=== PATIENT | female | born 1955 | race Caucasian/White ===

== ENCOUNTER → 2020-08-05 08:45 | Outpatient (BNVA) | payer OTHER, SELFPAY | PROVIDERS: PCP Internal Medicine; Visit Provider Internal Medicine | DX: Z76.89 Persons encountering health services in other specified circumstances (principal) ==

== ENCOUNTER 2020-09-02 10:13 | Outpatient (REF) | payer MEDICARE, SELFPAY ==
[2020-09-02 11:26] LABS: Influenza A PCR NEGATIVE (Negative); Influenza B PCR NEGATIVE (Negative); Resp Syncy Virus RNA Qual PCR NEGATIVE (Negative); SARS COV2 PCR INHOUSE NEGATIVE (Negative)
== END 2020-09-02 10:14 | disposition home or self-care (01) ==
LOC: HO.LNP 10:13
PROVIDERS: Visit Provider Internal Medicine
DX: R51.9 Headache, unspecified (principal); R09.89 Other specified symptoms and signs involving the circulatory and respiratory systems; J02.9 Acute pharyngitis, unspecified; Z20.822 Contact with and (suspected) exposure to COVID-19
CPT/HCPCS: 0241U

== ENCOUNTER → 2020-09-09 08:29 | Outpatient (BNVA) | payer OTHER, SELFPAY | PROVIDERS: PCP Internal Medicine; Visit Provider Urology | DX: N39.41 Urge incontinence (principal) | CPT/HCPCS: 51798 ==

== ENCOUNTER 2020-09-19 06:01 | Outpatient (REF) | payer OTHER, SELFPAY ==
[2020-09-19 07:32] LABS: Cholesterol 203 mg/dL; HDL Cholesterol 74 mg/dL; LDL Cholesterol Calculated 107 mg/dl; Triglycerides 113 mg/dL
== END 2020-09-19 06:02 | disposition home or self-care (01) ==
LOC: HO.LAB 06:01
PROVIDERS: PCP Internal Medicine; Visit Provider Internal Medicine
DX: E78.00 Pure hypercholesterolemia, unspecified (principal)
CPT/HCPCS: 36415; 80061

== ENCOUNTER → 2021-02-10 08:03 | Outpatient (BNVA) | payer OTHER, SELFPAY | PROVIDERS: PCP Internal Medicine; Referring Provider Internal Medicine; Visit Provider Internal Medicine | DX: R07.2 Precordial pain (principal); R42 Dizziness and giddiness; I10 Essential (primary) hypertension; I77.1 Stricture of artery | CPT/HCPCS: 93005 ==

== ENCOUNTER 2021-03-03 10:23 | Outpatient (REF) | payer OTHER, SELFPAY ==
--- NOTE | ~2021-03-03 | US_ITS ---
EXAMINATION: US EXTRACRANIAL CAROTID DUPLEX, BILATERAL CLINICAL INFORMATION: Carotid artery stenosis COMPARISON: 04/07/2018 TECHNIQUE: Real-time ultrasound and Doppler techniques (integrating B-mode 2-D vascular images, Doppler spectral analysis and color-flow Doppler imaging) were utilized to interrogate the extracranial carotid arteries, the vertebral arteries and proximal subclavian arteries bilaterally. The degree of stenosis is determined by criteria similar to NASCET. FINDINGS: Right Side: 1. There is minimal heterogeneous atherosclerotic plaque seen in the bifurcation/proximal ICA region. 2. The common carotid artery PSV proximally is 132 cm/s and distally 76 cm/s. 3. The proximal internal carotid artery velocities are 66 cm/s systolic and 19 cm/s diastolic. 4. The proximal external carotid artery PSV is 93 cm/s. 5. The vertebral artery shows antegrade flow. 6. The subclavian artery waveforms are normal. Left Side: 1. There is mild heterogeneous atherosclerotic plaque seen in the bifurcation/proximal ICA region. 2. The common carotid artery PSV proximally is 153 cm/s and distally 76 cm/s. 3. The proximal internal carotid artery velocities are 68 cm/s systolic and 13 cm/s diastolic. 4. The proximal external carotid artery PSV is 81 cm/s. 5. The vertebral artery shows antegrade flow. 6. The subclavian artery peak systolic velocity is elevated. US/US carotid duplex BI IMPRESSION: 1. RIGHT: Minimal, non-hemodynamically significant stenosis of the proximal right internal carotid artery corresponding to a 0-49% stenosis by velocity criteria. 2. LEFT: Minimal, non-hemodynamically significant stenosis of the proximal left internal carotid artery corresponding to a 0-49% stenosis by velocity criteria. 3. There is no change in the category severity of disease when compared to the previous study dated 04/07/2018.
== END 2021-03-03 10:24 | disposition home or self-care (01) ==
LOC: HO.US 10:23
PROVIDERS: PCP Internal Medicine; Visit Provider Internal Medicine
DX: I65.23 Occlusion and stenosis of bilateral carotid arteries (principal); I77.1 Stricture of artery
CPT/HCPCS: 93880

== ENCOUNTER → 2021-08-27 08:07 | Outpatient (BNVA) | payer OTHER, SELFPAY | PROVIDERS: PCP Internal Medicine; Referring Provider Internal Medicine; Visit Provider Internal Medicine | DX: I65.23 Occlusion and stenosis of bilateral carotid arteries (principal); I77.1 Stricture of artery ==

== ENCOUNTER → 2021-09-18 08:14 | Outpatient (BNVA) | payer OTHER, SELFPAY | PROVIDERS: PCP Internal Medicine | DX: N39.41 Urge incontinence (principal) | CPT/HCPCS: 51798 ==

== ENCOUNTER → 2021-11-24 14:13 | Outpatient (BNVA) | payer OTHER, SELFPAY | PROVIDERS: PCP Internal Medicine | DX: Z13.89 Encounter for screening for other disorder (principal) ==

== ENCOUNTER 2022-01-01 08:13 | Outpatient (REF) | payer OTHER, SELFPAY ==
[2022-01-01 17:25] LABS: Urine Cytology See Pathology rpt
== END 2022-01-01 08:14 | disposition home or self-care (01) ==
LOC: HO.LAB 08:13
PROVIDERS: PCP Internal Medicine
DX: N39.0 Urinary tract infection, site not specified (principal); N39.41 Urge incontinence; R31.9 Hematuria, unspecified
CPT/HCPCS: 87086; 88112

== ENCOUNTER 2022-02-05 08:14 | Outpatient (REF) | payer OTHER, SELFPAY ==
--- NOTE | ~2022-02-05 | US_ITS ---
EXAMINATION: US RETROPERITONEAL LIMITED (RENAL ONLY) CLINICAL INFORMATION: Unspecified hematuria. COMPARISON: None TECHNIQUE: Real-time imaging of the kidneys. FINDINGS: RIGHT KIDNEY: 9.9 x 4.6 x 5.3 cm (SAG x AP x TRV). The kidney is normal in size, contour, and echogenicity. Renal cortical thickness is normal. No calculi or focal parenchymal lesions. No hydronephrosis. LEFT KIDNEY: 9.0 x 5.3 x 5.0 cm (SAG x AP x TRV). The kidney is normal in size, contour, and echogenicity. Renal cortical thickness is normal. There is question of a 3 mm stone in the mid to lower pole. There is a 9 x 6 x 8 mm cyst with peripheral dependent calcification probably representing a milk of calcium cyst. No hydronephrosis. US/US renal BI IMPRESSION: Normal right kidney. Question small left renal stone. Small left renal cyst.
== END 2022-02-05 08:15 | disposition home or self-care (01) ==
LOC: HO.US 08:14
DX: R31.9 Hematuria, unspecified (principal)
CPT/HCPCS: 76775

== ENCOUNTER 2022-02-19 10:44 | Outpatient (REF) | payer OTHER, SELFPAY ==
[2022-02-19 13:21] LABS: Appearance Urine HAZY; Color Urine YELLOW; Glucose Urine UA NEG (NEG); Leukocyte Esterase Urine 2+ (NEG); Nitrite Urine NEG (NEG); Urine Blood NEG (NEG); Urine Ketones NEG (NEG); Urine Protein NEG (NEG-TRACE)
[2022-02-19 13:30] LABS: Squamous Epithelial Cell Urine 2+ /LPF
[2022-02-19 13:31] LABS: Bacteria Urine TRACE /LPF; RBC Urine 0 /HPF (0)
== END 2022-02-19 10:45 | disposition home or self-care (01) ==
LOC: HO.LAB 10:44
PROVIDERS: PCP Internal Medicine
DX: N39.0 Urinary tract infection, site not specified (principal)
CPT/HCPCS: 81001; 87086

== ENCOUNTER → 2022-03-31 14:00 | Outpatient (BNVA) | payer OTHER, SELFPAY | PROVIDERS: PCP Internal Medicine; Referring Provider Internal Medicine; Visit Provider Internal Medicine | DX: I77.1 Stricture of artery (principal); I10 Essential (primary) hypertension | CPT/HCPCS: 93005 ==

== ENCOUNTER 2022-06-03 11:10 | Outpatient (REF) | payer OTHER, SELFPAY ==
--- NOTE | ~2022-06-03 | XR_ITS ---
EXAMINATION: XR HIP, RIGHT CLINICAL INFORMATION: Right hip pain. COMPARISON: None TECHNIQUE: Two views of the right hip. FINDINGS: There is minimal loss of right hip joint space without bony erosive changes. No visible acute fracture, dislocation or subluxation seen. No bony erosive changes. XR/XR hip RT min 2V IMPRESSION: Mild degenerative changes right hip joint. No visible acute fracture or dislocation.
== END 2022-06-03 11:11 | disposition home or self-care (01) ==
LOC: HO.XRAY 11:10
PROVIDERS: PCP Internal Medicine; Visit Provider Internal Medicine
DX: M25.551 Pain in right hip (principal)
CPT/HCPCS: 73502

== ENCOUNTER 2023-02-12 11:55 | Outpatient (REF) | payer OTHER, SELFPAY ==
[2023-02-12 13:16] LABS: MANUAL DIFF FLAG NO
[2023-02-12 13:20] LABS: Basophils Absolute Auto 0.1 X10*3/uL (0.0-0.2); Basophils Percent Auto 0.8 % (0-2); Eosinophils Absolute Auto 0.1 X10*3/uL (0.0-0.4); Eosinophils Percent Auto 1.5 % (0-4); Hematocrit 40.9 % (37.0-47.0); Imm Gran Abs Auto 0.06 X10*3/uL (0.00-0.03); Imm Gran Pct Auto 0.9 % (0.0-0.4); Lymphocytes Absolute Auto 1.6 X10*3/uL (1.2-4.9); Lymphocytes Percent Auto 24.3 % (20-40); Mean Corpuscular HGB Conc 34.2 g/dl (31.0-35.0); Mean Corpuscular Volume 93.6 fL (80.0-98.0); Mean Platelet Volume 9.5 fL (9.4-12.3); Monocytes Absolute Auto 0.9 X10*3/uL (0.1-1.2); Monocytes Percent Auto 13.7 % (2-11); Neutrophils Absolute Auto 3.8 x10*3/uL (2.0-8.3); Neutrophils Percent Auto 58.8 % (45-73); Platelet Count 297 X10*3/uL (160-400); Red Blood Count 4.37 X10*6/uL (4.20-5.50); Red Cell Distribution Width 12.4 % (11.0-16.0); White Blood Count 6.5 X10*3/uL (4.8-10.8)
[2023-02-12 13:25] LABS: Appearance Urine Clear; Color Urine Yellow; Glucose Urine UA Negative (Negative); Leukocyte Esterase Urine Moderate (2+) (Negative); Nitrite Urine Negative (Negative); UMIC TRIGGER UACC YES; Urine Blood Negative (Negative); Urine Ketones Negative (Negative); Urine Protein Negative (Neg-Trace)
[2023-02-12 13:27] LABS: Bacteria Urine None Seen (None Seen); Hyaline Casts Urine 0-2 /LPF (0-2); RBC Urine 0-2 /HPF (0-2); UACC Culture Trigger YES; WBC Urine 21-50 /HPF (0-5)
[2023-02-12 13:58] LABS: Erythrocyte Sedimentation Rate 27 MM/HR (0-20)
[2023-02-12 14:02] LABS: Alanine Aminotransferase 24 U/L (0-31); Albumin Level 3.9 g/dL (3.5-5.0); Alkaline Phosphatase 77 U/L (39-117); Anion Gap 14 (12-20); Aspartate Amino Transferase 19 U/L (5-31); Bilirubin Total 0.3 mg/dL (0.0-1.0); Blood Urea Nitrogen 9 mg/dL (9-16); C Reactive Protein 5.67 mg/dL (< or = 0.50); Calcium 9.8 mg/dL (8.4-10.2); Carbon Dioxide 28 mmol/L (22-29); Chloride 98 mmol/L (96-108); Estimated Glomerular Filt Rate > 60; Glucose Random 96 mg/dL (60-115); Potassium 3.5 mmol/L (3.3-5.1); Sodium 136 mmol/L (135-145)
== END 2023-02-12 11:56 | disposition home or self-care (01) ==
LOC: HO.10HDL 11:55
PROVIDERS: Visit Provider Internal Medicine
DX: I10 Essential (primary) hypertension (principal); K62.5 Hemorrhage of anus and rectum; R82.90 Unspecified abnormal findings in urine
CPT/HCPCS: 36415; 80053; 81001; 85025; 85652; 86140; 87086

== ENCOUNTER 2023-02-15 11:46 | Outpatient (REF) | payer OTHER, SELFPAY | END 2023-02-15 11:47 | disposition home or self-care (01) | LOC: HO.LNP 11:46 | PROVIDERS: Visit Provider Internal Medicine | DX: Z13.89 Encounter for screening for other disorder (principal) | CPT/HCPCS: 87507 ==

== ENCOUNTER 2023-02-22 10:38 | Outpatient (REF) | payer OTHER, SELFPAY ==
[2023-02-22 16:12] LABS: Campylobacter Not Detected (Not Detect.); Plesiomonas shigelloides Not Detected (Not Detect.); Salmonella Not Detected (Not Detect.); Vibrio Not Detected (Not Detect.)
[2023-02-22 16:13] LABS: Adenovirus F 40/41 Not Detected (Not Detect.); Astrovirus Not Detected (Not Detect.); Cryptosporidium Not Detected (Not Detect.); Cyclospora cayetanensis Not Detected (Not Detect.); E. coli EAEC Not Detected (Not Detect.); E. coli EPEC Not Detected (Not Detect.); E. coli ETEC Not Detected (Not Detect.); E. coli STEC Not Detected (Not Detect.); Entamoeba histolytica Not Detected (Not Detect.); Giardia lamblia Not Detected (Not Detect.); Norovirus GI/GII Not Detected (Not Detect.); Rotavirus A Not Detected (Not Detect.); Sapovirus Not Detected (Not Detect.); Shigella sp./EIEC Not Detected (Not Detect.); Vibrio Cholerae Not Detected (Not Detect.); Yersinia enterocolitica Not Detected (Not Detect.)
== END 2023-02-22 10:39 | disposition home or self-care (01) ==
LOC: HO.LNP 10:38
PROVIDERS: Visit Provider Internal Medicine
DX: R10.9 Unspecified abdominal pain (principal)
CPT/HCPCS: 87507

== ENCOUNTER 2023-04-09 07:47 | Day surgery (SDC) | payer OTHER, SELFPAY ==
--- NOTE | 2023-04-08 10:09 | P.CONAN_ITS ---
Documented by User: Rasheeda Lucas NP 04/08/23 10:11 HPI - Anesthesia Eval Consult details Narrative: 67yo F for Upper Endoscopy with Balloon Dilitation PMFSH Active Problems Active Problems: All Active Problems (Updated 01/01/22 @ 13:58 by CAROL Pimentel) Hematuria (Acute) UTI (urinary tract infection) (Acute) Urgency incontinence (Acute) Dizziness (Acute) Subclavian artery stenosis (Acute) Essential hypertension (Acute) Past Medical History Medical History (Updated 04/09/23 @ 07:59 by Sherron Gutierrez RN) Asthma Essential hypertension GERD (gastroesophageal reflux disease) H/O urinary retention Hematuria History of urinary retention Migraines Subclavian artery stenosis Urge incontinence Urgency incontinence Urgency of micturition UTI (urinary tract infection) Family History Family History Father Heart disease Colon cancer Mother No problems noted. Surgical History Surgical History (Updated 04/09/23 @ 08:03 by Sherron Gutierrez RN) History of left knee replacement History of left shoulder replacement History of right shoulder replacement History of tonsillectomy History of tubal ligation Social History Social History Alcohol intake: never Patient Tobacco Use Status: Never used Tobacco Use of substances other than those prescribed or required for medical reasons: No Are you DNR?: No Advance Directives: No Advance Directives Information Provided: Yes Meds Allergies Allergy/AdvReac Type Severity Reaction Status Date / Time cephalexin [From KEFLEX] Allergy Unknown DIARRHEA Verified 03/31/22 14:27 gabapentin [From NEURONTIN] Allergy Unknown DIZZINESS- Verified 03/31/22 14:27 AFFECTED VISION Sulfa (Sulfonamide Allergy Unknown ITCH, Verified 03/31/22 14:27 Antibiotics) itchiness [SULFA (SULFONAMIDE ANTIBIOTICS)] Home Medications Medication Instructions Recorded Confirmed Last Taken Type calcium carbonate 500 mg calcium 500 mg PO DAILY 08/05/20 04/09/23 Unknown History (1,250 mg) tablet (Calcium 500) divalproex 500 mg tablet,extended 500 mg PO DAILY 08/05/20 04/09/23 Unknown History release 24 hr (Depakote ER) duloxetine 60 mg capsule,delayed 60 mg PO DAILY 08/05/20 04/09/23 Unknown Histor y release (Cymbalta) multivitamin 1 tab PO DAILY 08/05/20 04/09/23 Unknown History nabumetone 500 mg tablet 500 mg PO BID 08/05/20 04/09/23 Unknown History tramadol 50 mg tablet 50 mg PO BID PRN Pain 08/05/20 04/09/23 Unknown History albuterol sulfate 90 mcg/actuation 2 inh inhalation [id number] PRN 01/01/22 04/09/23 Unknown History aerosol inhaler Shortness Of Breath Or Wheezing fluticasone 250 mcg-salmeterol 50 1 ea inhalation BID 01/01/22 04/09/23 Unknown History mcg/dose blistr powdr for inhalation hyoscyamine sulfate 0.125 mg tablet 0.125 mg PO DAILY 01/01/22 04/09/23 Unknown History omeprazole 20 mg capsule,delayed 20 mg PO DAILY 03/31/22 04/09/23 Unknown History release Exam Exam Date and Time: April 08, 2023 1009 Pertinent Lab Results Pertinent Lab Results: Laboratory Tests 02/12/23 02/12/23 12:02 12:02 WBC 6.5 Hgb 14.0 Hct 40.9 Plt Count 297 Sodium 136 Potassium 3.5 Chloride 98 Carbon Dioxide 28 BUN 9 Creatinine 0.62 Narrative Narrative: US carotid duplex BI 2020 IMPRESSION: 1. RIGHT: Minimal, non-hemodynamically significant stenosis of the proximal right internal carotid artery corresponding to a 0-49% stenosis by velocity criteria. ? 2. LEFT: Minimal, non-hemodynamically significant stenosis of the proximal left internal carotid artery corresponding to a 0-49% stenosis by velocity criteria. ? 3. There is no change in the category severity of disease when compared to the previous study dated 04/07/2018. Assessment and Plan Assessment Anesthesia Assessment: Chart Reviewed Documented by User: Eleuterio Dyer MD 04/09/23 08:39 [facility] Past Medical History Medical History (Updated 04/09/23 @ 07:59 by Sherron Gutierrez RN) Asthma Essential hypertension GERD (gastroesophageal reflux disease) H/O urinary retention Hematuria History of urinary retention Migraines Subclavian artery stenosis Urge incontinence Urgency incontinence Urgency of micturition UTI (urinary tract infection) Family History Family History Father Heart disease Colon cancer Mother No problems noted. Family history of problems with anesthesia: No Surgical History Surgical History (Updated 04/09/23 @ 08:03 by Sherron Gutierrez RN) History of left knee replacement History of left shoulder replacement History of right shoulder replacement History of tonsillectomy History of tubal ligation History of Problems with Anesthesia: No Social History Social History Alcohol intake: never Patient Tobacco Use Status: Never used Tobacco Use of substances other than those prescribed or required for medical reasons: No Are you DNR?: No Advance Directives: No Advance Directives Information Provided: Yes Meds Allergies Allergy/AdvReac Type Severity Reaction Status Date / Time cephalexin [From KEFLEX] Allergy Unknown DIARRHEA Verified 03/31/22 14:27 gabapentin [From NEURONTIN] Allergy Unknown DIZZINESS- Verified 03/31/22 14:27 AFFECTED VISION Sulfa (Sulfonamide Allergy Unknown ITCH, Verified 03/31/22 14:27 Antibiotics) itchiness [SULFA (SULFONAMIDE ANTIBIOTICS)] Home Medications Medication Instructions Recorded Confirmed Last Taken Type calcium carbonate 500 mg calcium 500 mg PO DAILY 08/05/20 04/09/23 Unknown History (1,250 mg) tablet (Calcium 500) divalproex 500 mg tablet,extended 500 mg PO DAILY 08/05/20 04/09/23 Unknown History release 24 hr (Depakote ER) duloxetine 60 mg capsule,delayed 60 mg PO DAILY 08/05/20 04/09/23 Unknown History release (Cymbalta) multivitamin 1 tab PO DAILY 08/05/20 04/09/23 Unknown History nabumetone 500 mg tablet 500 mg PO BID 08/05/20 04/09/23 Unknown History tramadol 50 mg tablet 50 mg PO BID PRN Pain 08/05/20 04/09/23 Unknown History albuterol sulfate 90 mcg/actuation 2 inh inhalation [id number] PRN 01/01/22 04/09/23 Unknown History aerosol inhaler Shortness Of Breath Or Wheezing fluticasone 250 mcg-salmeterol 50 1 ea inhalation BID 01/01/22 04/09/23 Unknown History mcg/dose blistr powdr for inhalation hyoscyamine sulfate 0.125 mg tablet 0.125 mg PO DAILY 01/01/22 04/09/23 Unknown History omeprazole 20 mg capsule,delayed 20 mg PO DAILY 03/31/22 04/09/23 Unknown History release Exam Airway Mallampati Class: II Neck ROM: Limited Heart: rrr Assessment and Plan Final Anesthetic Review Family History of Problems with Anesthesia: No History of Problems with Anesthesia: No NPO: Yes ASA Class: III Final Preanesthetic Review: No Changes in Pt Med Stat, Meds/Allgs Chart Reviewed, Consent Obtained/Reviewed and Anes Risks/Benef Reviewed Patient Risk: Intermediate Procedure Risk: Intermediate Anesthetic Plan Anesthetic Plan: MAC: and Agree w/ Assess. and Plan Disposition: Standard PACU
[2023-04-09 08:09] VITALS: BP 139/59; PULSE 65; RESP 18; TEMP 37.2; O2SAT 9; BMI 23.4
[2023-04-09] MEDS: Lactated Ringers 1,000 ML 100 ML IVCONT (08:42)
[2023-04-09 09:29] VITALS: BP 96/39; PULSE 60; RESP 14; TEMP 36.3; O2SAT 99
--- NOTE | 2023-04-09 09:31 | PM.OP ---
Brief Operative Note Date of Service: 04/09/23 Pre-op diagnosis: GERD, Dysphagia Post-op diagnosis: other (Hiatal hernia, GERD, Gastritis) Procedure: EGD with Balloon Dilation and biopsies Surgeon: Jose J Santamaria Anesthesia: MAC Was an Global Compensation Director used for this Procedure?: No Estimated blood loss (mL): 2.0 Pathology: other (A. Gastric antrum B. EG Junction at 33cm C. Gastric polyps) Condition: stable Disposition: PACU
[2023-04-09 09:44] VITALS: BP 101/35; PULSE 56; RESP 16; O2SAT 100
[2023-04-09 09:59] VITALS: BP 113/47; PULSE 56; RESP 18; TEMP 36.3; O2SAT 100
--- NOTE | 2023-04-09 10:32 | OP_ITS ---
DATE OF SERVICE: 04/09/2023 SURGEON: Jose J Santamaria MD INDICATIONS: The patient presents for evaluation of dysphagia and reflux. Full consent has been obtained from her for this, including risks of bleeding and perforation. PREOPERATIVE DIAGNOSIS: POSTOPERATIVE DIAGNOSIS: PROCEDURE PERFORMED: Esophagogastroduodenoscopy with balloon dilation of gastroesophageal junction and biopsies. ESTIMATED BLOOD LOSS: COMPLICATIONS: ANESTHESIA: Monitored anesthesia care. ASSISTANTS: SPECIMENS: PREOPERATIVE DIAGNOSES: Dysphagia and reflux. POSTOPERATIVE DIAGNOSES: Dysphagia and reflux, hiatal hernia, rule out Taveras's esophagus, gastric polyps, gastritis. DESCRIPTION OF PROCEDURE: The patient was placed in the left lateral decubitus position. The Olympus video gastroscope was passed in the posterior oropharynx and upper esophagus under direct vision. The scope was passed slowly to the distal esophagus. The gastroesophageal junction appeared at 33 cm. There was evidence of a small to moderate-sized hiatal hernia and some irregularity at the EG junction but no esophagitis nor definitive evidence of Taveras's esophagus. There was no esophageal ring, nor stricture. The scope easily entered the stomach. The scope was advanced to the pylorus and the duodenum was cannulated to the descending portion. The duodenum including the bulb appeared normal without mass or ulceration. The scope was withdrawn back in the stomach. The gastric antrum and body had areas of erythema and edema, but no erosions or ulceration. There was good peristalsis. Biopsies were obtained from the antrum. The scope was retroflexed visualizing the proximal stomach carefully, which appeared normal, without mass or ulceration, other than several hyperplastic appearing gastric polyps. Two of these were biopsied. The scope was withdrawn back in the esophagus. I did use a [employer] incremental balloon to dilate the gastroesophageal junction from 18 mm to 19 mm to 20 mm at the recommended pressure between 30 and 60 seconds. Post-dilation, there was really no appreciable heme noted nor any disruption of the EG junction. The balloon itself pulled easily into and out of the stomach. I did obtain biopsies of the EG junction at 33 cm. Proximal to this, the esophageal mucosa appeared normal. There were no proximal esophageal rings. The scope was withdrawn from the patient. She tolerated the procedure well and was returned to recovery area in stable condition. IMPRESSION: 1. Hiatal hernia, gastroesophageal reflux. 2. Gastritis. 3. Gastric polyps. 4. Rule out Taveras's esophagus. PLAN: The results of the biopsies will be checked. She will continue her daily omeprazole. We will continue to observe her in regard to the swallowing, which she reports is not overly problematic at this time. If she continues to have significant problems, we may want to have her undergo a barium swallow with a barium tablet and/or esophageal motility studies. She will follow up in the office as needed. MD VISHAL Bahena/BETTY / [phone] MTDMax
== END 2023-04-09 10:15 | disposition home or self-care (01) ==
PROVIDERS: PCP Internal Medicine; Visit Provider Internal Medicine
PROC: (CPT 43239; principal; 2023-04-09 09:00)
DX: K31.7 Polyp of stomach and duodenum (principal); K31.A19 Gastric intestinal metaplasia without dysplasia, unspecified site; K44.9 Diaphragmatic hernia without obstruction or gangrene; K21.9 Gastro-esophageal reflux disease without esophagitis; R13.14 Dysphagia, pharyngoesophageal phase; Z83.71 Family history of colonic polyps; K58.0 Irritable bowel syndrome with diarrhea; J45.909 Unspecified asthma, uncomplicated; I10 Essential (primary) hypertension; E78.5 Hyperlipidemia, unspecified; Z98.51 Tubal ligation status; Z79.82 Long term (current) use of aspirin; Z79.899 Other long term (current) drug therapy
CPT/HCPCS: 43239; 43249; 88305; 88342; C1726

== ENCOUNTER 2023-05-10 09:54 | Outpatient (REF) | payer OTHER, SELFPAY ==
--- NOTE | ~2023-05-10 | XR_ITS ---
EXAMINATION: XR PELVIS XR CERVICAL SPINE XR RIBS, LEFT CLINICAL INFORMATION: Patient missed a step at home, pain everywhere, neck pain, left rib pain. COMPARISON: X-ray right hip 06/08/2022, left ribs 05/16/2019. TECHNIQUE: AP view of the pelvis, 3 views of the cervical spine and 4 views of the left ribs. FINDINGS: AP PELVIS: Advanced degenerative changes on limited views of the lumbosacral spine. Bones are diffusely demineralized. Moderate degenerative changes in the bilateral hips with joint space narrowing and hypertrophic change, left greater than right. CERVICAL SPINE: Slight rightward curvature of the cervical spine. Grade 1 anterolisthesis of C2 on C3. Grade 1 retrolisthesis of C4 on C5 and of C5 on C6. Visualization of C6 and C7 is limited due to soft tissues. Advanced cervical spondylosis at C4-C5, C5-C6 and C6-C7 with loss of disc space height and hypertrophic change. LEFT RIBS: There are bilateral shoulder prostheses. There is no gross pneumothorax. Heart size is normal. No pleural effusion. No gross focal consolidation to suggest pneumonia. Degenerative changes in the thoracic spine. Advanced degenerative changes in the bilateral acromioclavicular joints with widening of the left acromioclavicular joint. Radiopaque marker placed to indicate area of concern indicated by patient to technologist overlying lower left ribs. Expected appearance of healing of the previously identified left anterior 4th through 9th rib fractures redemonstrated. No acute lower left rib fracture is appreciated. XR/XR cervical spine 3V IMPRESSION: 1. Advanced degenerative changes on limited views of the lumbosacral spine. 2. Moderate degenerative changes in the bilateral hips. 3. Advanced cervical spondylosis at C4-C7 levels. 4. Expected appearance of healing of the previously identified left anterior 4th through 9th rib fractures redemonstrated. No acute lower left rib fracture is appreciated. 5. Additional imaging with CT scan or MRI should be considered for better visualization as these modalities are much more sensitive for detection of fracture or other underlying pathology.
--- NOTE | ~2023-05-10 | XR_ITS ---
EXAMINATION: XR PELVIS XR CERVICAL SPINE XR RIBS, LEFT CLINICAL INFORMATION: Patient missed a step at home, pain everywhere, neck pain, left rib pain. COMPARISON: X-ray right hip 06/08/2022, left ribs 05/16/2019. TECHNIQUE: AP view of the pelvis, 3 views of the cervical spine and 4 views of the left ribs. FINDINGS: AP PELVIS: Advanced degenerative changes on limited views of the lumbosacral spine. Bones are diffusely demineralized. Moderate degenerative changes in the bilateral hips with joint space narrowing and hypertrophic change, left greater than right. CERVICAL SPINE: Slight rightward curvature of the cervical spine. Grade 1 anterolisthesis of C2 on C3. Grade 1 retrolisthesis of C4 on C5 and of C5 on C6. Visualization of C6 and C7 is limited due to soft tissues. Advanced cervical spondylosis at C4-C5, C5-C6 and C6-C7 with loss of disc space height and hypertrophic change. LEFT RIBS: There are bilateral shoulder prostheses. There is no gross pneumothorax. Heart size is normal. No pleural effusion. No gross focal consolidation to suggest pneumonia. Degenerative changes in the thoracic spine. Advanced degenerative changes in the bilateral acromioclavicular joints with widening of the left acromioclavicular joint. Radiopaque marker placed to indicate area of concern indicated by patient to technologist overlying lower left ribs. Expected appearance of healing of the previously identified left anterior 4th through 9th rib fractures redemonstrated. No acute lower left rib fracture is appreciated. XR/XR ribs LT min 3V w CXR1V IMPRESSION: 1. Advanced degenerative changes on limited views of the lumbosacral spine. 2. Moderate degenerative changes in the bilateral hips. 3. Advanced cervical spondylosis at C4-C7 levels. 4. Expected appearance of healing of the previously identified left anterior 4th through 9th rib fractures redemonstrated. No acute lower left rib fracture is appreciated. 5. Additional imaging with CT scan or MRI should be considered for better visualization as these modalities are much more sensitive for detection of fracture or other underlying pathology.
== END 2023-05-10 09:55 | disposition home or self-care (01) ==
LOC: HO.XRAY 09:54
PROVIDERS: PCP Internal Medicine; Visit Provider Internal Medicine
DX: M54.2 Cervicalgia (principal); R10.2 Pelvic and perineal pain; R07.81 Pleurodynia; Z91.81 History of falling
CPT/HCPCS: 71101; 72040; 72170

== ENCOUNTER 2023-05-13 07:59 | Outpatient (AMB) | payer OTHER, SELFPAY ==
--- NOTE | 2023-05-13 08:21 | A.OFFVIS_ITS ---
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: No Accompanied by: Self / Same As Patient Allergies cephalexin [From KEFLEX] Allergy (Unknown, Verified 05/13/23 08:23) DIARRHEA gabapentin [From NEURONTIN] Allergy (Unknown, Verified 05/13/23 08:23) DIZZINESS- AFFECTED VISION Sulfa (Sulfonamide Antibiotics) [SULFA (SULFONAMIDE ANTIBIOTICS)] Allergy (Unknown, Verified 05/13/23 08:23) ITCH, itchiness Medication List - Last Reconciled 05/13/23 by Dk Saldana MD albuterol sulfate 90 mcg/actuation 2 inhalations inhalation [id number] PRN amlodipine 10 mg PO DAILY calcium carbonate (Calcium 500) 500 mg PO DAILY divalproex ER 250 mg PO DAILY duloxetine (Cymbalta) 60 mg PO DAILY fluticasone propion-salmeterol 250-50 mcg/dose 1 ea inhalation BID hyoscyamine sulfate 0.125 mg PO DAILY lisinopril 5 mg PO DAILY multivitamin 1 tab PO DAILY nabumetone 500 mg PO BID omeprazole 20 mg PO DAILY oxybutynin chloride ER 15 mg PO DAILY 90 days rosuvastatin 10 mg PO DAILY tramadol 50 mg PO BID PRN triamterene-hydrochlorothiazid 37.5-25 mg 1 tab PO DAILY HPI HPI Comments History of Present Illness Details Megan returns for follow-up regarding hypertension. In the past, was having very high blood pressures as much as 180 systolic and 90s diastolic. Over time, medications have been optimized and current home blood pressure readings are well within the normal range. In the blood pressure diary, rare readings in the 150s but mostly much lower than that. Otherwise, she generally feels okay. [facility] Medical History (Updated 04/09/23 @ 07:59 by Sherron Gutierrez RN) Asthma Hematuria UTI (urinary tract infection) GERD (gastroesophageal reflux disease) Urgency incontinence H/O urinary retention Migraines History of urinary retention Urgency of micturition Urge incontinence Subclavian artery stenosis Essential hypertension Surgical History (Updated 05/13/23 @ 08:25 by Julienne Hodges) History of surgery on right wrist History of left shoulder replacement History of left knee replacement History of right shoulder replacement History of tubal ligation History of tonsillectomy Family History Father Heart disease Colon cancer Mother No problems noted. Social History Alcohol intake: never Patient Tobacco Use Status: Never used Tobacco Review of Systems Const Denies weakness ENT Denies dizziness Card Denies chest pain, Denies chest pain with activity, Denies syncope, Denies rapid heart rate, Denies pedal edema, Denies edema, Denies leg edema, Denies lightheadedness, Denies palpitations, Denies dyspnea, Denies dyspnea on exertion and Denies orthopnea Resp Denies cough, Denies dyspnea and Denies dyspnea on exertion GI Denies hematochezia and Denies change in stool character Musc Denies abnormal gait, Denies muscle cramps, Denies muscle weakness, Denies numbness, Denies radiating pain into limb and Denies tingling Neuro Denies abnormal gait, Denies dizziness, Denies syncope, Denies numbness, Denies tingling and Denies weakness Endo Denies palpitations Physical Exam Vital Signs: Last Vital Signs Pulse 71 05/13/23 08:22 BP 116/56 L 05/13/23 08:22 BMI result Body Mass Index 26.3 Const General: comfortable and no acute distress Orientation/consciousness: patient oriented x3 HEENT Other: Unremarkable Head: Yes normal to inspection Neck Neck: Yes normal visual inspection Chest Chest palpation & inspection: normal inspection of the chest Resp Auscultation: clear to auscultation bilaterally Cardio Palpation: normal PMI Heart sounds: S1 normal heart sound present, S2 normal heart sound present, no gallops, Murmur heart sound present systolic I/ and at the right sternal border and no rubs GI Palpation (GI): Soft to palpation Back/Spine/Pelvis Other: unremarkable Skin General skin exam: no rashes or lesions noted Neuro General: patient oriented x3 Extrem General: Yes normal to inspection Psych Mental Status: mental status grossly normal Office Procedures EKG Details: EKG with sinus rhythm at 71/Min; no significant ST-T changes and otherwise unremarkable. [place] [address]-[id number], Complete Assessment & Plan Assessment & Plan (1) Essential hypertension: Code(s): I10 - Essential (primary) hypertension (2) Subclavian artery stenosis: Code(s): I77.1 - Stricture of artery Plan Home blood pressure diary reviewed and shows mostly well-controlled blood pressures. Remains on a multidrug regimen including amlodipine, lisinopril, triamterene/hydrochlorothiazide. Renal function and electrolytes stable. Previously reported left subclavian stenosis on a carotid ultrasound but no symptoms from this at all. Due to vascular disease, we will screen her with a stress test for any hemodynamically significant coronary disease. Echocardiogram for any significant LVH or diastolic dysfunction. Follow-up in 1 year but in the interim, she will call with concerns. Total time spent including review of data, counseling, documentation, coordination of care-31 minutes. Orders: Orders CA stress test Today R07.2 - Precordial pain NM cardiolite stress test Today R07.2 - Precordial pain CA echo transthoracic complete Today I10 - Essential (primary) hypertension, I25.10 - Atherosclerotic heart disease of [place] coronary artery without angina pectoris Coding Level of Care Code Est Pt Level 4 (02906) Diagnoses Essential hypertension I10 Subclavian artery stenosis I77.1 CPT Codes EKG - CPT: 12266-[id number], Complete ([id number])
[2023-05-13 08:22] VITALS: BP 116/56; PULSE 71; BMI 26.3
== END 2023-05-13 08:45 | disposition home or self-care (01) ==
PROVIDERS: PCP Internal Medicine; Visit Provider Internal Medicine
DX: I10 Essential (primary) hypertension (principal); I77.1 Stricture of artery
CPT/HCPCS: 93010; 99214

== ENCOUNTER → 2023-05-13 07:59 | Outpatient (BNVA) | payer OTHER, SELFPAY | PROVIDERS: PCP Internal Medicine; Visit Provider Internal Medicine | DX: I10 Essential (primary) hypertension (principal); I77.1 Stricture of artery | CPT/HCPCS: 93005 ==

== ENCOUNTER 2023-06-20 10:31 | Emergency (ER) | payer OTHER, MEDICARE, SELFPAY ==
--- NOTE | ~2023-06-20 | XR_ITS ---
EXAMINATION: XR CHEST CLINICAL INFORMATION: Right chest wall pain. Bruising. COMPARISON: Most recent chest radiograph dated 05/10/2023. TECHNIQUE: 2 views of the chest were obtained. FINDINGS: No airspace consolidation. No pleural effusion or pneumothorax. Stable cardiomediastinal silhouette. Bilateral shoulder arthroplasty without evidence of hardware complication. XR/XR chest 2V IMPRESSION: No acute cardiopulmonary findings.
--- NOTE | 2023-06-20 10:33 | ECG_ITS ---
Test Reason : CHEST PAIN Blood Pressure : / mmHG Vent. Rate : 095 BPM Atrial Rate : 095 BPM P-R Int : 156 ms QRS Dur : 082 ms QT Int : 358 ms P-R-T Axes : 066 -15 024 degrees QTc Int : 449 ms Normal sinus rhythm Minimal voltage criteria for LVH, may be normal variant ( R in aVL ) Inferior infarct , age undetermined Possible Anterior infarct , age undetermined Abnormal ECG When compared with ECG of 07-APR-2018 12:21, Vent. rate has increased BY 34 BPM Borderline criteria for Anterior infarct are now Present Inferior infarct is now Present Referred By: Generic ED Physician Electronically Signed By:CATHRYN MEZA MD
[2023-06-20 10:41] VITALS: BP 148/60; PULSE 85; RESP 18; TEMP 36.6; O2SAT 100; BMI 27.5
--- NOTE | 2023-06-20 11:10 | PC.NURSE ---
a&ox3, vss and up to date, nsr on the radiation monitor. pt comes in today d/t 1010 sternal chest pain that radiates towards right side of chest. pt states she tripped in her bedroom where she then fell and hit her chest on her night stand. pt verbalizes pain level increases upon inspiration. 22gIV placed in the left forearm w/o complications - labs drawn and sent to lab. pt verbalizing sob - O2 stable at this time. no wob noted at this time. respirations even and unlabored. call marquez placed within reach.
[2023-06-20 11:12] LABS: MANUAL DIFF FLAG NO
[2023-06-20 11:13] LABS: Basophils Percent Auto 0.8 % (0-2); Eosinophils Absolute Auto 0.1 X10*3/uL (0.0-0.4); Eosinophils Percent Auto 1.8 % (0-4); Hematocrit 39.9 % (37.0-47.0); Hemoglobin 13.7 g/dl (12.0-16.0); Imm Gran Abs Auto 0.01 X10*3/uL (0.00-0.03); Imm Gran Pct Auto 0.3 % (0.0-0.4); Lymphocytes Absolute Auto 0.9 X10*3/uL (1.2-4.9); Lymphocytes Percent Auto 22.1 % (20-40); Mean Corpuscular HGB Conc 34.3 g/dl (31.0-35.0); Mean Corpuscular Hemoglobin 31.4 pg (27.0-33.0); Mean Corpuscular Volume 91.5 fL (80.0-98.0); Mean Platelet Volume 9.3 fL (9.4-12.3); Monocytes Absolute Auto 0.4 X10*3/uL (0.1-1.2); Monocytes Percent Auto 9.7 % (2-11); Neutrophils Absolute Auto 2.6 x10*3/uL (2.0-8.3); Neutrophils Percent Auto 65.3 % (45-73); Platelet Count 184 X10*3/uL (160-400); Red Blood Count 4.36 X10*6/uL (4.20-5.50); Red Cell Distribution Width 12.9 % (11.0-16.0); White Blood Count 3.9 X10*3/uL (4.8-10.8)
[2023-06-20 11:27] LABS: Anion Gap 18 (12-20); Blood Urea Nitrogen 16 mg/dL (9-16); Calcium 10.1 mg/dL (8.4-10.2); Carbon Dioxide 23 mmol/L (22-29); Chloride 98 mmol/L (96-108); Creatinine Clr Calc Pharmacy 79.2; Estimated Glomerular Filt Rate > 60; Glucose Random 134 mg/dL (60-115); Potassium 4.4 mmol/L (3.3-5.1); Sodium 135 mmol/L (135-145)
[2023-06-20 11:37] LABS: COVID-19 Test Positive (Negative); IDNOW Serial# 6674DD1D; Troponin-I High Sensitivity < 2.7 ng/L (<3.5-17.0)
[2023-06-20 11:49] LABS: IDNOW Serial# 6674DD1D; Influenza A Negative (Negative); Influenza B2 Negative (Negative)
--- NOTE | 2023-06-20 11:57 | PC.NURSE ---
pt currently in xray at this time.
--- NOTE | 2023-06-20 12:29 | PC.NURSE ---
pt tested positive for covid - contact precautions now in place.
--- NOTE | 2023-06-20 12:54 | ED.CHESTPAIN ---
HPI - Chest Pain General Chief Complaint: Dyspnea Stated Complaint: chest pain Time Seen by Provider: 06/20/23 11:22 History of Present Illness HPI narrative: Patient fell onto chest on Wednesday, there is a contusion to the right side of the chest that pain worsens when she brings her arms together. Related Data Home Medications Medication Instructions Recorded Confirmed calcium carbonate 500 mg calcium 500 mg PO DAILY 08/05/20 05/13/23 (1,250 mg) tablet (Calcium 500) duloxetine 60 mg capsule,delayed 60 mg PO DAILY 08/05/20 05/13/23 release (Cymbalta) multivitamin 1 tab PO DAILY 08/05/20 05/13/23 nabumetone 500 mg tablet 500 mg PO BID 08/05/20 05/13/23 tramadol 50 mg tablet 50 mg PO BID PRN Pain 08/05/20 05/13/23 albuterol sulfate 90 mcg/actuation 2 inh inhalation [id number] PRN 01/01/22 05/13/23 aerosol inhaler Shortness Of Breath Or Wheezing fluticasone 250 mcg-salmeterol 50 1 ea inhalation BID 01/01/22 05/13/23 mcg/dose blistr powdr for inhalation hyoscyamine sulfate 0.125 mg tablet 0.125 mg PO DAILY 01/01/22 05/13/23 omeprazole 20 mg capsule,delayed 20 mg PO DAILY 03/31/22 05/13/23 release divalproex 250 mg tablet,extended 250 mg PO DAILY 05/13/23 05/13/23 release 24 hr Previous Rx's Medication Instructions Recorded oxybutynin chloride 15 mg 15 mg PO DAILY 90 days #90 tabs 01/01/22 tablet,extended release 24 hr triamterene 37.5 1 tab PO DAILY #90 caps 01/04/23 mg-hydrochlorothiazide 25 mg tablet lisinopril 5 mg tablet 5 mg PO DAILY #90 tabs 03/26/23 amlodipine 10 mg tablet 10 mg PO DAILY #90 tabs 05/10/23 rosuvastatin 10 mg tablet 10 mg PO DAILY #90 tabs 06/03/23 Allergies Allergy/AdvReac Type Severity Reaction Status Date / Time cephalexin [From KEFLEX] Allergy Unknown DIARRHEA Verified 05/13/23 08:23 gabapentin [From NEURONTIN] Allergy Unknown DIZZINESS- Verified 05/13/23 08:23 AFFECTED VISION Sulfa (Sulfonamide Allergy Unknown ITCH, Verified 05/13/23 08:23 Antibiotics) itchiness [SULFA (SULFONAMIDE ANTIBIOTICS)] [facility] Past Medical History Medical History (Updated 06/20/23 @ 13:00 by Tati Loya MD) Asthma Hematuria UTI (urinary tract infection) GERD (gastroesophageal reflux disease) Urgency incontinence H/O urinary retention Migraines History of urinary retention Urgency of micturition Urge incontinence Subclavian artery stenosis Essential hypertension Surgical History (Updated 05/13/23 @ 08:25 by Julienne Hodges) History of surgery on right wrist History of left shoulder replacement History of left knee replacement History of right shoulder replacement History of tubal ligation History of tonsillectomy Family History Family History Father Heart disease Colon cancer Mother No problems noted. Social History Social History Alcohol intake: current Alcohol intake frequency: holidays/special occasions only Patient Tobacco Use Status: Never used Tobacco Smoked in Last 30 Days: No Use of substances other than those prescribed or required for medical reasons: No Advance Directives: No Advance Directives Information Provided: Yes Physical Exam Vital Signs: Vital Signs: Last Vital Signs Temp 98 F 06/20/23 10:41 Pulse 85 06/20/23 10:41 Resp 18 06/20/23 10:41 BP 148/60 H 06/20/23 10:41 Pulse Ox 100 06/20/23 10:41 O2 Del Method Room Air 06/20/23 10:41 BMI result Body Mass Index 27.5 Medical Decision Making Lab Data 06/20/23 11:07 06/20/23 11:07 Labs: Lab Results 06/20/23 Range/Units 11:07 WBC 3.9 L (4.8-10.8) X10*3/uL RBC 4.36 (4.20-5.50) X10*6/uL Hgb 13.7 (12.0-16.0) g/dl Hct 39.9 (37.0-47.0) % MCV 91.5 (80.0-98.0) fL MCH 31.4 (27.0-33.0) pg MCHC 34.3 (31.0-35.0) g/dl RDW 12.9 (11.0-16.0) % Plt Count 184 D (160-400) X10*3/uL MPV 9.3 L (9.4-12.3) fL Immature Gran % (Auto) 0.3 (0.0-0.4) % Neut % (Auto) 65.3 (45-73) % Lymph % (Auto) 22.1 (20-40) % Hemphill % (Auto) 9.7 (2-11) % Eos % (Auto) 1.8 (0-4) % Baso % (Auto) 0.8 (0-2) % Lymph # (Auto) 0.9 L (1.2-4.9) X10*3/uL Hemphill # (Auto) 0.4 (0.1-1.2) X10*3/uL Eos # (Auto) 0.1 (0.0-0.4) X10*3/uL Baso # (Auto) 0.0 (0.0-0.2) X10*3/uL Abs Immat Gran (auto) 0.01 (0.00-0.03) X10*3/uL Absolute Neuts (auto) 2.6 (2.0-8.3) x10*3/uL Absolute Nucleated RBC 0.000 (0.0-0.012) X10*3/uL Nucleated RBC % (auto) 0.0 (0.0-0.2) /100WBC Sodium 135 (135-145) mmol/L Potassium 4.4 D (3.3-5.1) mmol/L Chloride 98 (96-108) mmol/L Carbon Dioxide 23 (22-29) mmol/L Anion Gap 18 (12-20) BUN 16 (9-16) mg/dL Creatinine 0.63 (0.5-1.4) mg/dL Estim Creat Clear Calc 79.2 Estimated GFR > 60 Random Glucose 134 H (60-115) mg/dL Calcium 10.1 (8.4-10.2) mg/dL Troponin I High Sens < 2.7 (<3.5-17.0) ng/L COVID-19 (MELY) Positive A (Negative) COVID-19 Clin Com See Note Influenza Type A (RASHEEDA) Negative (Negative) Influenza Type B (RASHEEDA) Negative (Negative) Influenza A & B Note See Note Discharge Plan Discharge Clinical Impression: Viral syndrome, Lab test positive for detection of COVID-19 virus, Contusion of right chest wall Patient Disposition: Home, Self-Care Instructions: Contusion in Adults (ED), Viral Syndrome (ED), COVID-19 (Coronavirus Disease 2019) (ED) Additional Instructions: 1. Recommend [id number]-[id number] Tylenol/ibuprofen as needed for pain control. You need to isolate for 5 days given the fact that your COVID-19 positive. 2. Recommend udtd-eta-[id number] lidocaine patch for additional symptom relief of the right chest wall. 3. Please follow-up with your primary care doctor in the next 2-3 days for re-evaluation further outpatient management Return to the ER for any worsening symptoms. Prescriptions: No Action triamterene-hydrochlorothiazid 37.5-25 mg tablet 1 tab PO DAILY Qty: 90 3RF lisinopril 5 mg tablet 5 mg PO DAILY Qty: 90 3RF amlodipine 10 mg tablet 10 mg PO DAILY Qty: 90 3RF rosuvastatin 10 mg tablet 10 mg PO DAILY Qty: 90 3RF nabumetone 500 mg tablet 500 mg PO BID tramadol 50 mg tablet 50 mg PO BID PRN (Reason: Pain) duloxetine [Cymbalta] 60 mg capsule,delayed release(DR/EC) 60 mg PO DAILY multivitamin Tablet 1 tab PO DAILY calcium carbonate [Calcium 500] 500 mg calcium (1,250 mg) tablet 500 mg PO DAILY divalproex 250 mg tablet extended release 24 hr 250 mg PO DAILY omeprazole 20 mg capsule,delayed release(DR/EC) 20 mg PO DAILY hyoscyamine sulfate 0.125 mg tablet 0.125 mg PO DAILY albuterol sulfate 90 mcg/actuation HFA aerosol inhaler 2 inh inhalation [id number] PRN (Reason: Shortness Of Breath Or Wheezing) fluticasone propion-salmeterol 250-50 mcg/dose blister with device 1 ea inhalation BID oxybutynin chloride 15 mg tablet extended release 24 hr 15 mg PO DAILY 90 Days Qty: 90 0RF Referrals: Demetrio Gonzales MD [Primary Care Provider] -
[2023-06-20] MEDS: Ibuprofen 400 MG TABLET PO (13:10)
[2023-06-20] MEDS: Acetaminophen 325 MG TABLET 975 MG PO (13:10)
[2023-06-20] MEDS: Lidocaine 4 % Patch ADH..PATCH 1 PATCH TRANSDERMA (13:10)
--- NOTE | 2023-06-20 13:12 | PC.NURSE ---
medicated per provider order. provided w/ d/c paperwork.
== END 2023-06-20 13:20 | disposition home or self-care (01) ==
PROVIDERS: Emergency Provider Student in an Organized Health Care Education/Training Program; PCP Internal Medicine
DX: S20.211A Contusion of right front wall of thorax, initial encounter (principal); U07.1 COVID-19; B34.9 Viral infection, unspecified; R06.02 Shortness of breath; R07.89 Other chest pain; Y93.9 Activity, unspecified; Y92.9 Unspecified place or not applicable; Y99.9 Unspecified external cause status; X58.XXXA Exposure to other specified factors, initial encounter; Z79.899 Other long term (current) drug therapy
CPT/HCPCS: 36415; 71046; 80048; 84484; 85025; 87502; 87635; 93005; 99285

== ENCOUNTER 2023-06-24 15:07 | Outpatient (REF) | payer OTHER, SELFPAY ==
--- NOTE | ~2023-06-24 | XR_ITS ---
EXAMINATION: XR RIBS, RIGHT CLINICAL INFORMATION: Right anterior chest pain after fall COMPARISON: 04/20/2023 TECHNIQUE: Single chest image and 3 detailed views of the right ribs FINDINGS: There is no evidence for pneumothorax. There is no effusion. The mediastinal contour is within normal limits. The cardiac silhouette is within normal limits in the hilar structures felt to be comparable. Detailed imaging of the right ribs does not demonstrate evidence for an acute fracture. XR/XR ribs RT min 3V w CXR1V IMPRESSION: No fracture is seen here. No underlying pneumothorax or effusion.
== END 2023-06-24 15:08 | disposition home or self-care (01) ==
LOC: HO.XRAY 15:07
PROVIDERS: PCP Internal Medicine; Visit Provider Internal Medicine
DX: R07.81 Pleurodynia (principal)
CPT/HCPCS: 71101

== ENCOUNTER → 2023-07-28 07:42 | Outpatient (REF) | payer OTHER, SELFPAY ==
--- NOTE | 2023-07-28 07:45 | CA_ITS ---
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 Study Quality: Fair ECG Rhythm: Sinus Conclusions: - The left ventricular systolic function is normal. The calculated ejection fraction is 59% by biplane method. - There is moderate septal asymmetric hypertrophy. - No obvious valvular pathology seen on this study. Findings Left Ventricle Normal left ventricular cavity size. The left ventricular systolic function is normal. The calculated ejection fraction is 59% by biplane method. There is no evidence of regional wall motion abnormalities. Diastolic function is normal for age. There is moderate septal asymmetric hypertrophy. LV peak GLS -19.3%. Right Ventricle Normal right ventricular cavity size and systolic function. Atria Both atria are normal in size. Aortic Valve There is a normal trileaflet aortic valve. There is mild calcification of the aortic valve. There is no aortic valve stenosis. There is no aortic valve regurgitation. Mitral Valve The mitral valve appears normal. There is no mitral valve regurgitation. There is no mitral valve stenosis. Pulmonic Valve The pulmonic valve is likely normal. Tricuspid Valve There is no tricuspid valve regurgitation. Tricuspid regurgitation envelope is inadequate for calculation of right ventricular systolic pressure. Great Vessels The asc aorta is normal in size. Venous The inferior vena cava is normal in size and collapses greater than 50% with inspiration. Pericardium/Pleural There is no evidence of pericardial effusion. Prior Study Comparison No significant change compared to prior study dated: 04/08/2018. Recommendations, Care & Conclusions No obvious valvular pathology seen on this study. Measurements 2D Linear Measurements IVSd: 1.30 0.6-0.9/0.6-1.0 cm LVIDd: 3.58 3.9-5.3/4.2-5.9 cm LVIDd Index: 2.08 2.4-3.2/2.2-3.1 cm/m2 LVIDs: 2.35 2.0-3.6 cm LVPWd: 0.98 0.7-1.1 cm LA Diam: 3.30 2.7-3.8/3.0-4.0 cm LAIDs Index: 1.92 1.5-2.3 cm/m2 LV Mass: 161.99 67-162/88-224 g LV Mass Index: 94.18 43-95/49-115 g/m2 LVOT Diam: 2.00 3.0+(-)1.3 cm 2D Systolic Function EF 4C: 58.80 >55% EF 2C: 58.70 >55% EF BiP: 58.50 >55% Mitral Valve MV Pk E: 0.81 MV PK A: 0.88 MV Decel Time: 270.00 E/A: 0.90 E'Lateral: 12.30 E'Medial: 5.00 E/E' Med: 16.20 E/E' Lat: 6.60 PHT: 79.00 MVA PHT: 2.78 Decel Beauregard: 3.00 Aortic Valve AoV Pk Roque: 1.75 AoV Mn Roque: 1.27 AoV VTI: 0.37 AoV Pk Grad: 12.00 Aov Mn Grad: 7.00 JOSE FRANCISCO Cont.VTI: 1.76 LVOT LVOT Pk Roque: 0.91 LVOT Mn Roque: 0.57 LVOT VTI: 0.21 LVOT Pk Grad: 3.00 LVOT Mn Grad: 1.00 LVOT Diam: 2.00 LVOT Area: 3.14 Diastolic Function MV Pk E: 0.81 MV Pk A: 0.88 E/A: 0.90 E'Medial: 5.00 E/E' Med: 16.20 E' Laterial: 12.30 E/E' Lat: 6.60 Right Ventricle TAPSE (mm): 19.20 TVS' Roque: 10.10 Tricuspid Valve RA Press: 3.00 Great Vessels Aorta Sinus of Valsalva: 3.21 2.0-3.5 cm Ao Asc: 3.30 2.1-3.4 cm Ao Arch: 2.80 Updated in Other Vendor System with Status of Final Dk Saldana MD electronically signed on 07/30/2023 3:02:31 PM with status of Final
== END ==
LOC: HO.CARD 07:42
PROVIDERS: PCP Internal Medicine; Visit Provider Internal Medicine
DX: I25.10 Atherosclerotic heart disease of native coronary artery without angina pectoris (principal); I10 Essential (primary) hypertension
CPT/HCPCS: 93306; 93356

== ENCOUNTER → 2023-07-28 07:45 | Outpatient (BNV) | payer OTHER, SELFPAY | PROVIDERS: PCP Internal Medicine; Visit Provider Internal Medicine | DX: I25.10 Atherosclerotic heart disease of native coronary artery without angina pectoris (principal) | CPT/HCPCS: 93306 ==

== ENCOUNTER → 2023-08-06 07:51 | Outpatient (REF) | payer OTHER, SELFPAY ==
--- NOTE | ~2023-08-06 | NM_ITS ---
Exercise Myocardial perfusion study Indication: Precordial chest pain to evaluate for myocardial ischemia Technique: The patient was brought in for an exercise perfusion study on 08/06/2023. Patient performed exercise as per Demetrio protocol and was injected 25 mCi of sestamibi was given intravenously one target HR was achieved. Images were obtained using the SPECT gamma camera interlaced with the gating device. Images were obtained in supine position. Resting perfusion study was performed on 08/10/2023. Patient was administered 25 mCi of sestamibi intravenously at rest. Images were then obtained in supine position. Images obtained with and without CT attenuation. Total DLP 149 mGy-cm. Images were processed with the software and compared side to side in short axis, horizontal long axis and vertical long axis views. Findings: The stress perfusion study showed showed very small focal area of mildly reduced uptake in the lateral wall of the LV myocardium. Attenuation corrected myocardium.. The gated study shows normal LV systolic function with calculated LVEF of 62%. LV cavity is normal in size. The gated study shows normal systolic wall thickening and contraction of all segments. There is no transient ischemic dilation. Resting study shows no change in perfusion pattern compared to stress perfusion study. Gating at rest reveals normal systolic wall motion with ejection fraction at 62%. The findings are consistent with normal myocardial perfusion. NM/NM cardiolite stress test Impression: 1. Normal myocardial perfusion 2. Gated LVEF is 62% 3. Transient ischemic dilatation not present Stress EKG is negative for ischemia
--- NOTE | 2023-08-06 07:55 | CA_ITS ---
Acquisition Time: 2023-08-06 07:56:20 Total Exercise Time: 00:07:19 Test Indications: Chest Pain Medications: SEE H Protocol: AMY Max HR: 129 BPM 85% of Pred: 151 BPM Max BP: 184/060 mmHG Max Work Load: 9.0 METS Exercise stress test exercise 7 min 19 sec of Amy protocol achieving 86% MPHR, without anginal symptoms, without arrhythmias, with normotensive response to exercise, without EKG changes. Nuclear images pending, Test reviewed with Dr. Junior. Referred By: Dk Saldnaa Overread By: Kaylie Hodge
== END ==
LOC: HO.CARD 07:51
PROVIDERS: PCP Internal Medicine; Visit Provider Internal Medicine
DX: R07.2 Precordial pain (principal)
CPT/HCPCS: 78452; 93017; A9500

== ENCOUNTER → 2023-08-06 07:55 | Outpatient (BNV) | payer OTHER, SELFPAY | PROVIDERS: PCP Internal Medicine; Visit Provider Nurse Practitioner | DX: R07.2 Precordial pain (principal) | CPT/HCPCS: 78452; 93016; 93018 ==

== ENCOUNTER 2023-09-01 05:54 | Outpatient (REF) | payer OTHER, SELFPAY ==
[2023-09-01 08:39] LABS: Anion Gap 14 (12-20); Blood Urea Nitrogen 18 mg/dL (9-16); Calcium 9.8 mg/dL (8.4-10.2); Carbon Dioxide 31 mmol/L (22-29); Chloride 98 mmol/L (96-108); Cholesterol 237 mg/dL (<200); Estimated Glomerular Filt Rate > 60; Glucose Random 88 mg/dL (60-115); HDL Cholesterol 91 mg/dL (>40); LDL Cholesterol Calculated 134 mg/dL (<100); Potassium 4.6 mmol/L (3.3-5.1); Sodium 138 mmol/L (135-145); Triglycerides 63 mg/dL (<150)
[2023-09-05 16:28] LABS: Vitamin D 25-OH, D2 <4 ng/mL; Vitamin D 25-OH, D3 53 ng/mL; Vitamin D 25-OH, Total 53 ng/mL (30-100)
== END 2023-09-01 05:55 | disposition home or self-care (01) ==
LOC: HO.LAB 05:54
PROVIDERS: PCP Internal Medicine; Visit Provider Internal Medicine
DX: I10 Essential (primary) hypertension (principal); K21.9 Gastro-esophageal reflux disease without esophagitis; M06.9 Rheumatoid arthritis, unspecified; E78.00 Pure hypercholesterolemia, unspecified
CPT/HCPCS: 36415; 80048; 80061; 82306

== ENCOUNTER 2023-09-15 13:58 | Outpatient (REF) | payer OTHER, SELFPAY ==
--- NOTE | ~2023-09-15 | XR_ITS ---
Indication: Fall, pain EXAMINATION: Chest x-ray and right ribs. 2 views of the chest and 3 views of the right ribs. Comparison previous dated 06/25/2023. Also 06/20/2023. The chest film does not demonstrate evidence for pneumothorax. Underlying lung field is grossly clear. No effusion. The cardiac silhouette is within normal limits. The hilar regions do not appear pathologically enlarged. Some degeneration in the thoracic spine. No foreign acute compression injury. 3 detailed views of the right ribs demonstrates a step-off involving the anterior ribs #7 and possibly 6. Suggestive of fracture. XR/XR chest 2V IMPRESSION: Findings suggest fracture of the right anterior seventh and sixth ribs. No underlying pneumothorax or effusion
--- NOTE | ~2023-09-15 | XR_ITS ---
Indication: Fall, pain EXAMINATION: Chest x-ray and right ribs. 2 views of the chest and 3 views of the right ribs. Comparison previous dated 06/25/2023. Also 06/20/2023. The chest film does not demonstrate evidence for pneumothorax. Underlying lung field is grossly clear. No effusion. The cardiac silhouette is within normal limits. The hilar regions do not appear pathologically enlarged. Some degeneration in the thoracic spine. No foreign acute compression injury. 3 detailed views of the right ribs demonstrates a step-off involving the anterior ribs #7 and possibly 6. Suggestive of fracture. XR/XR ribs RT 2V IMPRESSION: Findings suggest fracture of the right anterior seventh and sixth ribs. No underlying pneumothorax or effusion
== END 2023-09-15 13:59 | disposition home or self-care (01) ==
LOC: HO.XRAY 13:58
PROVIDERS: PCP Internal Medicine; Visit Provider Internal Medicine
DX: R07.81 Pleurodynia (principal); Z91.81 History of falling
CPT/HCPCS: 71046; 71100

== ENCOUNTER 2023-10-01 07:37 | Outpatient (REF) | payer OTHER, SELFPAY | END 2023-10-01 07:38 | disposition home or self-care (01) | LOC: HO.US 07:37 | PROVIDERS: PCP Internal Medicine; Visit Provider Internal Medicine | DX: Z13.89 Encounter for screening for other disorder (principal) ==

== ENCOUNTER 2023-10-18 08:07 | Outpatient (REF) | payer OTHER, SELFPAY ==
--- NOTE | ~2023-10-18 | US_ITS ---
EXAMINATION: US ABDOMEN COMPLETE CLINICAL INFORMATION: Cyst of kidney, liver lesion. COMPARISON: Renal ultrasound 02/05/2022. TECHNIQUE: Real-time imaging of the abdominal viscera. Technically limited study secondary to bowel gas. FINDINGS: PANCREAS: Limited visualization of pancreatic tail and head. Imaged portion of pancreatic body is unremarkable. ABDOMINAL AORTA: Unremarkable. INFERIOR VENA CAVA: Visualized portions are normal. LIVER: Increased hepatic parenchymal heterogeneity and echogenicity could be associated with hepatocellular disease/hepatic steatosis and substantially limits visualization. Correlation with liver function tests and clinical exam recommended to determine further management. Left hepatic 0.6 cm cyst. Right hepatic 2.1 x 2.1 x 1.9 cm cyst with septation. GALLBLADDER: No gallstones. No gallbladder wall thickening. COMMON BILE DUCT: Normal in caliber measuring 0.3 cm in diameter. RIGHT KIDNEY: No hydronephrosis. No renal calculi. Limited visualization. The kidney measures 10.5 cm in maximum dimension. LEFT KIDNEY: No hydronephrosis. No renal calculi. Limited visualization. 0.7 cm mid to lower pole cyst. There is no indication for follow-up imaging. The kidney measures 10.2 cm in maximum dimension. SPLEEN: Normal. The spleen measures 9.7 cm in maximum dimension. FREE FLUID: None. US/US abdomen complete IMPRESSION: Increased hepatic parenchymal heterogeneity and echogenicity could be associated with hepatocellular disease/hepatic steatosis and substantially limits visualization. Correlation with liver function tests and clinical exam recommended to determine further management. Left hepatic 0.6 cm cyst. Right hepatic 2.1 x 2.1 x 1.9 cm cyst with septation.
== END 2023-10-18 08:08 | disposition home or self-care (01) ==
LOC: HO.US 08:07
PROVIDERS: PCP Internal Medicine; Visit Provider Internal Medicine
DX: K76.89 Other specified diseases of liver (principal); N28.1 Cyst of kidney, acquired
CPT/HCPCS: 76700

== ENCOUNTER 2023-11-24 11:11 | Outpatient (REF) | payer OTHER, SELFPAY ==
[2023-11-24 13:03] LABS: MANUAL DIFF FLAG NO
[2023-11-24 13:42] LABS: Basophils Percent Auto 0.7 % (0-2); Eosinophils Absolute Auto 0.2 X10*3/uL (0.0-0.4); Eosinophils Percent Auto 3.7 % (0-4); Hematocrit 38.3 % (37.0-47.0); Hemoglobin 13.4 g/dl (12.0-16.0); Imm Gran Abs Auto 0.01 X10*3/uL (0.00-0.03); Imm Gran Pct Auto 0.2 % (0.0-0.4); Lymphocytes Absolute Auto 1.7 X10*3/uL (1.2-4.9); Lymphocytes Percent Auto 39.8 % (20-40); Mean Corpuscular Hemoglobin 32.8 pg (27.0-33.0); Mean Corpuscular Volume 93.9 fL (80.0-98.0); Mean Platelet Volume 10.1 fL (9.4-12.3); Monocytes Absolute Auto 0.3 X10*3/uL (0.1-1.2); Monocytes Percent Auto 7.6 % (2-11); Neutrophils Absolute Auto 2.1 x10*3/uL (2.0-8.3); Platelet Count 245 X10*3/uL (160-400); Red Blood Count 4.08 X10*6/uL (4.20-5.50); Red Cell Distribution Width 12.4 % (11.0-16.0); White Blood Count 4.3 X10*3/uL (4.8-10.8)
[2023-11-24 13:58] LABS: Alanine Aminotransferase 23 U/L (0-31); Albumin Level 4.2 g/dL (3.5-5.0); Alkaline Phosphatase 72 U/L (39-117); Anion Gap 11 (12-20); Aspartate Amino Transferase 26 U/L (5-31); Bilirubin Total 0.2 mg/dL (0.0-1.0); Blood Urea Nitrogen 19 mg/dL (9-16); C Reactive Protein 0.15 mg/dL (< or = 0.50); Calcium 9.5 mg/dL (8.4-10.2); Carbon Dioxide 29 mmol/L (22-29); Chloride 99 mmol/L (96-108); Estimated Glomerular Filt Rate > 60; Glucose Random 101 mg/dL (60-115); Potassium 4.2 mmol/L (3.3-5.1); Sodium 135 mmol/L (135-145)
[2023-11-24 14:23] LABS: Erythrocyte Sedimentation Rate 3 MM/HR (0-20)
== END 2023-11-24 11:12 | disposition home or self-care (01) ==
LOC: HO.10HDL 11:11
PROVIDERS: Visit Provider Internal Medicine
DX: R68.84 Jaw pain (principal); R51.9 Headache, unspecified
CPT/HCPCS: 36415; 80053; 82550; 85025; 85652; 86140

== ENCOUNTER 2023-11-26 18:56 | Emergency (ER) | payer OTHER, SELFPAY ==
--- NOTE | ~2023-11-26 | CT_ITS ---
EXAMINATION: CT HEAD WITHOUT CONTRAST CLINICAL INFORMATION: Headache. COMPARISON: CT head dated 04/07/2018. Brain MRI dated 02/19/2021. TECHNIQUE: Contiguous axial imaging was performed from the skull base to vertex without intravenous administration of contrast. This CT examination was performed using dose optimization techniques as appropriate, variously including the following: *Automated exposure control *Adjustment of mA and/or kV according to patient size (this includes techniques or standardized protocols for targeted exams where dose is matched to indication/reason for exam; i.e. extremities or head) *Use of iterative reconstruction technique DLP: 1240 mGy-cm FINDINGS: There is no intracranial hemorrhage. There is no evidence of acute/subacute cerebral or cerebellar infarction. There is no mass effect, midline shift, or extra-axial fluid collection. The ventricles are normal in size and configuration. The ocular lenses are surgically absent. The orbits are otherwise unremarkable. The calvarium is intact. The mastoid air cells are well aerated. The paranasal sinuses are clear. CT/CT head/brain wo IV con IMPRESSION: No acute intracranial pathology.
[2023-11-26 19:16] VITALS: BP 179/79; BP 184/64; PULSE 75; PULSE 76; RESP 18; TEMP 36.3; O2SAT 100; BMI 28.3
[2023-11-26 19:18] VITALS: BP 184/64; PULSE 74; RESP 18; TEMP 36.3; O2SAT 97
--- NOTE | 2023-11-26 19:22 | PC.NURSE ---
Pt presented to ED via EMS for eval for nausea/vomiting that started around 0200 this morning. Vomiting has continued throughout the day, as well as an intense headache. Pt felt faint and called 911. EMS placed a 22g IV in the left forearm and started normal saline. Pt got approx 250mL of fluids. Pt was transferred to ED stretcher and changed over into hospital clothes. Pt attached to ekg monitor tech, bloodwork being obtained at this time. Pt waiting for ED provider at this time.
[2023-11-26] MEDS: Ondansetron ODT 4 MG TAB.RAPDIS SUBLINGUAL (19:28)
[2023-11-26 19:45] LABS: Basophils Percent Auto 0.1 % (0-2); Eosinophils Percent Auto 0.1 % (0-4); Hematocrit 39.5 % (37.0-47.0); Hemoglobin 14.1 g/dl (12.0-16.0); Imm Gran Abs Auto 0.03 X10*3/uL (0.00-0.03); Imm Gran Pct Auto 0.3 % (0.0-0.4); Lymphocytes Absolute Auto 0.4 X10*3/uL (1.2-4.9); Lymphocytes Percent Auto 4.4 % (20-40); MANUAL DIFF FLAG SCAN; Mean Corpuscular HGB Conc 35.7 g/dl (31.0-35.0); Mean Corpuscular Hemoglobin 31.8 pg (27.0-33.0); Mean Corpuscular Volume 89.2 fL (80.0-98.0); Mean Platelet Volume 9.2 fL (9.4-12.3); Monocytes Absolute Auto 0.5 X10*3/uL (0.1-1.2); Monocytes Percent Auto 4.9 % (2-11); Neutrophils Absolute Auto 8.8 x10*3/uL (2.0-8.3); Neutrophils Percent Auto 90.2 % (45-73); Platelet Count 201 X10*3/uL (160-400); Red Blood Count 4.43 X10*6/uL (4.20-5.50); Red Cell Distribution Width 11.8 % (11.0-16.0); SCAN SMEAR FLAG 1; White Blood Count 9.7 X10*3/uL (4.8-10.8)
[2023-11-26 20:00] LABS: Alanine Aminotransferase 22 U/L (0-31); Albumin Level 4.1 g/dL (3.5-5.0); Alkaline Phosphatase 76 U/L (39-117); Anion Gap 14 (12-20); Aspartate Amino Transferase 25 U/L (5-31); Bilirubin Direct 0.1 mg/dL (0.0-0.5); Bilirubin Total 0.3 mg/dL (0.0-1.0); Blood Urea Nitrogen 9 mg/dL (9-16); Calcium 8.8 mg/dL (8.4-10.2); Carbon Dioxide 24 mmol/L (22-29); Chloride 93 mmol/L (96-108); Creatinine Clr Calc Pharmacy 87.6; Estimated Glomerular Filt Rate > 60; Glucose Random 146 mg/dL (60-115); Lipase 8 U/L (8-78); Potassium 3.1 mmol/L (3.3-5.1); Sodium 128 mmol/L (135-145); Total Protein 7.1 g/dL (6.5-8.0)
[2023-11-26] MEDS: diphenhydrAMINE HCL 50 MG/ML VIAL 25 MG IVPUSH (20:10)
[2023-11-26] MEDS: 0.9 % Sodium Chloride 1,000 ML 999 ML IV (20:10)
[2023-11-26] MEDS: Metoclopramide HCl 10 MG/2 ML VIAL IVPUSH (20:10)
[2023-11-26 20:19] LABS: SLIDE REVIEW VERIFIED
--- NOTE | 2023-11-26 20:32 | ED.GENADULT ---
HPI - General Adult General Chief complaint: Nausea/Vomiting/Diarrhea Stated complaint: N/V SINCE 2 AM Time Seen by Provider: 11/26/23 19:15 Source: patient, RN notes reviewed and old records reviewed Mode of arrival: EMS Limitations: no limitations History of Present Illness HPI narrative: 68-year-old female with past medical history significant for hypertension, urinary incontinence, subclavian artery stenosis presents for evaluation of headache and vomiting. Patient reports she woke up with a headache around 2:00 a.m. this morning Patient reports she has been vomiting nonstop ever since. She denies any abdominal pain, fevers, chills. Denies any sick contacts She reports a history of migraine headaches but states that she has not had them in several years Denies any trauma to the head or neck. She states that she has not on any anticoagulation Denies any neck pain No other complaints or concerns at this time Related Data Home Medications ?Medication ?Instructions ?Recorded ?Confirmed calcium carbonate 500 mg calcium 500 mg PO DAILY 08/05/20 05/13/23 (1,250 mg) tablet (Calcium 500) duloxetine 60 mg capsule,delayed 60 mg PO DAILY 08/05/20 05/13/23 release (Cymbalta) multivitamin 1 tab PO DAILY 08/05/20 05/13/23 nabumetone 500 mg tablet 500 mg PO BID 08/05/20 05/13/23 tramadol 50 mg tablet 50 mg PO BID PRN Pain 08/05/20 05/13/23 albuterol sulfate 90 mcg/actuation 2 inh inhalation [id number] PRN 01/01/22 05/13/23 aerosol inhaler Shortness Of Breath Or Wheezing fluticasone 250 mcg-salmeterol 50 1 ea inhalation BID 01/01/22 05/13/23 mcg/dose blistr powdr for inhalation hyoscyamine sulfate 0.125 mg tablet 0.125 mg PO DAILY 01/01/22 05/13/23 omeprazole 20 mg capsule,delayed 20 mg PO DAILY 03/31/22 05/13/23 release divalproex 250 mg tablet,extended 250 mg PO DAILY 05/13/23 05/13/23 release 24 hr Previous Rx's ?Medication ?Instructions ?Recorded oxybutynin chloride 15 mg 15 mg PO DAILY 90 days #90 tabs 01/01/22 tablet,extended release 24 hr triamterene 37.5 1 tab PO DAILY #90 caps 01/04/23 mg-hydrochlorothiazide 25 mg tablet lisinopril 5 mg tablet 5 mg PO DAILY #90 tabs 03/26/23 amlodipine 10 mg tablet 10 mg PO DAILY #90 tabs 05/10/23 rosuvastatin 10 mg tablet 10 mg PO DAILY #90 tabs 06/03/23 vtilogcaqk-fnwpwhjoosbcd-jqslzngr 1 cap PO Q4-6H PRN headache #12 11/27/23 50 mg-300 mg-40 mg capsule caps (Fioricet) ondansetron 4 mg disintegrating 4 mg PO Q8H PRN nausea and 11/27/23 tablet vomiting #20 tabs Allergies Allergy/AdvReac Type Severity Reaction Status Date / Time cephalexin [From KEFLEX] Allergy Unknown DIARRHEA Verified 11/26/23 19:19 gabapentin [From NEURONTIN] Allergy Unknown DIZZINESS- Verified 11/26/23 19:19 AFFECTED VISION Sulfa (Sulfonamide Allergy Unknown ITCH, Verified 11/26/23 19:19 Antibiotics) itchiness [SULFA (SULFONAMIDE ANTIBIOTICS)] Review of Systems Constitutional: Constitutional: Denies anorexia, Denies body ache(s), Denies chills, Denies fever(s), Reports headache(s) and Denies weakness Eyes: Eyes: Denies blurry vision and Reports photophobia ENT: Reports headache(s), Denies neck pain and Denies sore throat Cardiovascular: Cardiovascular: Denies chest pain and Denies dyspnea Respiratory: Respiratory: Denies cough and Denies dyspnea Gastrointestinal: Gastrointestinal: Denies abdominal pain, Reports nausea and Reports vomiting Genitourinary: Genitourinary: Denies dysuria Musculoskeletal: Musculoskeletal: Denies back pain and Denies neck pain Integumentary/Breasts: Skin/Breast: Denies rash Neurologic: Reports headache(s) and Denies weakness PMFSH Past Medical History Medical History (Updated 11/27/23 @ 00:37 by See Sapp) Asthma Hematuria UTI (urinary tract infection) GERD (gastroesophageal reflux disease) Urgency incontinence H/O urinary retention Migraines History of urinary retention Urgency of micturition Urge incontinence Subclavian artery stenosis Essential hypertension Surgical History (Updated 05/13/23 @ 08:25 by Julienne Hodges) History of surgery on right wrist History of left shoulder replacement History of left knee replacement History of right shoulder replacement History of tubal ligation History of tonsillectomy Family History Family History Father Heart disease Colon cancer Mother No problems noted. Social History Social History Alcohol intake: current Alcohol intake frequency: a few times a week Alcohol type: wine Patient Tobacco Use Status: Never used Tobacco Smoked in Last 30 Days: No Use of substances other than those prescribed or required for medical reasons: No Advance Directives: No Advance Directives Information Provided: No Physical Exam ED Vital Signs: Vital Signs - 24 hr 11/26/23 19:16 11/26/23 19:18 11/26/23 20:59 Temperature 97.4 F 97.4 F 97.4 F Pulse Rate 75 74 75 Respiratory Rate 18 18 16 Blood Pressure 184/64 H 184/64 H 161/72 H Pulse Oximetry 100 97 99 Oxygen Delivery Method Room Air Room Air Room Air 11/26/23 23:29 Temperature 97.6 F Pulse Rate 82 Respiratory Rate 14 Blood Pressure 146/67 H Pulse Oximetry 97 Oxygen Delivery Method Room Air BMI result Body Mass Index 28.3 Const General: healthy appearing, comfortable, no acute distress, alert and awake Nutritional Appearance: well nourished Orientation/consciousness: patient oriented x3 HENMT Head: Yes normocephalic and Yes atraumatic Throat: Yes posterior oropharynx normal Eyes Eyelids: Yes eyelids normal Conjunctivae: conjunctivae normal Sclerae: sclerae normal Corneas: corneas normal Pupils: Equal, round and reactive pupils present EOM: EOMs intact bilaterally Direct Ophthalmoscopy: photophobia Neck Neck: Yes full ROM Resp Effort & Inspection: normal respiratory effort, able to speak in complete sentences, no audible wheezes and not labored Auscultation: clear to auscultation bilaterally Cardio Rate: regular rate Rhythm: regular rhythm GI Inspection: No distended Palpation (GI): Soft to palpation, not firm, nontender, no guarding and not rigid Auscultation: normoactive bowel sounds Skin General skin exam: no rashes or lesions noted and elasticity normal Neuro General: patient oriented x3 Cranial nerves: Yes CN's II-XII intact bilaterally, Yes Equal, round and reactive pupils present and Yes Bilaterally intact EOM present Cognition (Neuro): normal cognition Extrem Other: Moving all extremities well without any obvious deformities Course Reevaluation(s) Reevaluation #1: Patient reports her headache has improved. Her CT scan was unremarkable. She is complaining of further nausea, we will treat with Zofran. Again continues to deny abdominal pain. Her symptoms may be viral in nature or related to a migraine headache which she reports a history of. The patient be discharged with Fioricet and Zofran and will follow-up with her PCP Time: 00:35 Medications Administered Discontinued Medications Generic Name Dose Route Start Last Admin Trade Name Freq PRN Reason Stop Dose Admin Acetaminophen/Butalbital/Caffeine 1 tab 11/26/23 23:13 11/26/23 23:21 Butalb/Acetamin/Caff 50/325/40 Tablet PO 11/26/23 23:14 1 tab ONCE ONE Administration Diphenhydramine HCl 25 mg 11/26/23 20:04 11/26/23 20:10 Diphenhydramine Hcl 50 Mg/Ml Vial IVPUSH 11/26/23 20:05 25 mg ONCE ONE Administration Sodium Chloride 1,000 mls @ 999 mls/hr 11/26/23 20:15 11/26/23 22:19 Ns IV 11/26/23 21:15 Infused .Q1H1M AUGUSTINA Infusion Metoclopramide HCl 10 mg 11/26/23 20:04 11/26/23 20:10 Metoclopramide Hcl 10 Mg/2 Ml Vial IVPUSH 11/26/23 20:05 10 mg ONCE ONE Administration Morphine Sulfate 4 mg 11/26/23 23:14 11/26/23 23:22 Morphine Sulfate 4 Mg/Ml Cartridge IVPUSH 11/26/23 23:15 4 mg ONCE ONE Administration Protocol Ondansetron HCl 4 mg 11/26/23 19:14 11/26/23 19:28 Ondansetron Odt 4 Mg Tab.Rapdis SUBLINGUAL 11/26/23 19:15 4 mg ONCE ONE Administration Medical Decision Making Medical Decision Making MDM Narrative: 68 old female presents for evaluation of headache and vomiting that started this morning. She is neurologically intact, her abdominal exam is reassuring, she is nontender. Most likely sources time is viral etiology. Will get basic labs. She has no fevers or neck pain to suggest meningitis or encephalitis. However given her age and sudden onset headache we will get a CT scan of her brain. I feel that subarachnoid hemorrhage is less likely given that her neuro exam is reassuring. We will treat with IV fluids, Reglan and Benadryl. Further workup as indicated Differential Diagnosis Differential Diagnoses: The differential diagnosis associated with the presentation includes Vomiting Headache Viral syndrome Gastroenteritis Abdominal pain Lab Data MDM Lab Attestation statement: I reviewed the patient's lab results. No leukocytosis. There is a left shift which may related to vomiting versus viral syndrome. Patient has no anemia. Electrolytes are significant for a sodium that is low at 128, potassium is low at 3.1. Renal function at baseline and within normal limits. 11/26/23 19:41 11/26/23 19:41 Labs: Lab Results 11/26/23 11/26/23 Range/Units 19:41 23:39 WBC 9.7 (4.8-10.8) X10*3/uL RBC 4.43 (4.20-5.50) X10*6/uL Hgb 14.1 (12.0-16.0) g/dl Hct 39.5 (37.0-47.0) % MCV 89.2 (80.0-98.0) fL MCH 31.8 (27.0-33.0) pg MCHC 35.7 H (31.0-35.0) g/dl RDW 11.8 (11.0-16.0) % Plt Count 201 (160-400) X10*3/uL MPV 9.2 L (9.4-12.3) fL Immature Gran % (Auto) 0.3 (0.0-0.4) % Neut % (Auto) 90.2 H (45-73) % Lymph % (Auto) 4.4 L (20-40) % [place] % (Auto) 4.9 (2-11) % Eos % (Auto) 0.1 (0-4) % Baso % (Auto) 0.1 (0-2) % Lymph # (Auto) 0.4 L (1.2-4.9) X10*3/uL [place] # (Auto) 0.5 (0.1-1.2) X10*3/uL Eos # (Auto) 0.0 (0.0-0.4) X10*3/uL Baso # (Auto) 0.0 (0.0-0.2) X10*3/uL Abs Immat Gran (auto) 0.03 (0.00-0.03) X10*3/uL Absolute Neuts (auto) 8.8 H (2.0-8.3) x10*3/uL Absolute Nucleated RBC 0.000 (0.0-0.012) X10*3/uL Nucleated RBC % (auto) 0.0 (0.0-0.2) /100WBC Smear Tech's Comments VERIFIED Sodium 128 L (135-145) mmol/L Potassium 3.1 L D (3.3-5.1) mmol/L Chloride 93 L (96-108) mmol/L Carbon Dioxide 24 (22-29) mmol/L Anion Gap 14 (12-20) BUN 9 (9-16) mg/dL Creatinine 0.57 (0.5-1.4) mg/dL Estim Creat Clear Calc 87.6 Estimated GFR > 60 Random Glucose 146 H (60-115) mg/dL Calcium 8.8 D (8.4-10.2) mg/dL Total Bilirubin 0.3 (0.0-1.0) mg/dL Direct Bilirubin 0.1 (0.0-0.5) mg/dL AST 25 (5-31) U/L ALT 22 (0-31) U/L Alkaline Phosphatase 76 (39-117) U/L Total Protein 7.1 (6.5-8.0) g/dL Albumin 4.1 (3.5-5.0) g/dL Lipase 8 (8-78) U/L Urine Color Yellow Urine Appearance Clear Urine pH 7.5 (5.0-9.0) Ur Specific [place] 1.015 (1.005-1.025) Urine Protein 300 (3+) H (Neg-Trace) mg/dL Urine Glucose (UA) 100 H (Negative) mg/dL Urine Ketones 40 (Negative) mg/dL Urine Blood Negative (Negative) Urine Nitrite Negative (Negative) Ur Leukocyte Esterase Trace H (Negative) Urine RBC 0-2 (0-2) /HPF Urine WBC 0-5 (0-5) /HPF Ur Squamous Epith Cells 0-2 (0-2) /HPF Urine Bacteria None Seen (None Seen) Hyaline Casts 0-2 (0-2) /LPF Independent Interpretation I performed an independent interpretation of an: CT Scan (No acute intracranial hemorrhage) Radiology Impression Discussion of test interpretation with radiology: I have reviewed the radiologist's reading. (No acute intracranial pathology) Discharge Plan Discharge Clinical Impression: Headache, Vomiting Patient Disposition: Home, Self-Care Instructions: Acute Headache (ED), Acute Nausea and Vomiting (ED) Additional Instructions: Use Fioricet as needed for further headaches. Use Zofran as needed for nausea and vomiting. Your blood work and CT scan did not show any concerning abnormalities Follow-up with your primary doctor, return for new or worsening symptoms Prescriptions: New ondansetron 4 mg tablet,disintegrating 4 mg PO Q8H PRN (Reason: nausea and vomiting) Qty: 20 0RF [id number] [Fioricet] 50-300-40 mg capsule 1 cap PO Q4-6H PRN (Reason: headache) Qty: 12 0RF No Action triamterene-hydrochlorothiazid 37.5-25 mg tablet 1 tab PO DAILY Qty: 90 3RF lisinopril 5 mg tablet 5 mg PO DAILY Qty: 90 3RF amlodipine 10 mg tablet 10 mg PO DAILY Qty: 90 3RF rosuvastatin 10 mg tablet 10 mg PO DAILY Qty: 90 3RF nabumetone 500 mg tablet 500 mg PO BID tramadol 50 mg tablet 50 mg PO BID PRN (Reason: Pain) duloxetine [Cymbalta] 60 mg capsule,delayed release(DR/EC) 60 mg PO DAILY multivitamin Tablet 1 tab PO DAILY calcium carbonate [Calcium 500] 500 mg calcium (1,250 mg) tablet 500 mg PO DAILY divalproex 250 mg tablet extended release 24 hr 250 mg PO DAILY omeprazole 20 mg capsule,delayed release(DR/EC) 20 mg PO DAILY hyoscyamine sulfate 0.125 mg tablet 0.125 mg PO DAILY albuterol sulfate 90 mcg/actuation HFA aerosol inhaler 2 inh inhalation [id number] PRN (Reason: Shortness Of Breath Or Wheezing) fluticasone propion-salmeterol 250-50 mcg/dose blister with device 1 ea inhalation BID oxybutynin chloride 15 mg tablet extended release 24 hr 15 mg PO DAILY 90 Days Qty: 90 0RF Print Language: Kinyarwanda
[2023-11-26 20:59] VITALS: BP 161/72; PULSE 75; RESP 16; TEMP 36.3; O2SAT 99
[2023-11-26] MEDS: Butalb/Acetamin/Caff 50/325/40 TABLET 1 TAB PO (23:21)
[2023-11-26] MEDS: Morphine Sulfate 4 MG/ML CARTRIDGE IVPUSH (23:22)
[2023-11-26 23:29] VITALS: BP 146/67; PULSE 82; RESP 14; TEMP 36.4; O2SAT 97
[2023-11-26 23:45] LABS: Appearance Urine Clear; Color Urine Yellow; Glucose Urine UA 100 mg/dL (Negative); Leukocyte Esterase Urine Trace (Negative); Nitrite Urine Negative (Negative); PH 7.5 (5.0-9.0); Specific Gravity - Urine 1.015 (1.005-1.025); UMIC TRIGGER UACC YES; Urine Blood Negative (Negative); Urine Ketones 40 mg/dL (Negative); Urine Protein 300 (3+) mg/dL (Neg-Trace)
[2023-11-26 23:51] LABS: Bacteria Urine None Seen (None Seen); Hyaline Casts Urine 0-2 /LPF (0-2); RBC Urine 0-2 /HPF (0-2); Squamous Epithelial Cell Urine 0-2 /HPF (0-2); WBC Urine 0-5 /HPF (0-5)
[2023-11-27] MEDS: ondansetron HCL 4 MG/2 ML VIAL IVPUSH (00:41)
[2023-11-27 00:53] VITALS: BP 154/75; PULSE 86; RESP 14; TEMP 36.6; O2SAT 99
== END 2023-11-27 00:59 | disposition home or self-care (01) ==
PROVIDERS: Emergency Provider Emergency Medicine
DX: R11.10 Vomiting, unspecified (principal); R51.9 Headache, unspecified; I10 Essential (primary) hypertension; J45.909 Unspecified asthma, uncomplicated; Z88.1 Allergy status to other antibiotic agents; Z88.2 Allergy status to sulfonamides; Z88.8 Allergy status to other drugs, medicaments and biological substances
CPT/HCPCS: 36415; 70450; 80053; 81001; 82248; 83690; 85025; 96361; 96374; 96375; 99284; 99285; J1200; J2270; J2405; J2765

== ENCOUNTER 2024-05-10 07:57 | Outpatient (AMB) | payer MEDICARE, OTHER, SELFPAY ==
[2024-05-10 08:23] VITALS: BP 134/60; PULSE 75
--- NOTE | 2024-05-10 08:23 | MHC.OFFVIS ---
Vital Signs 05/10/24 08:23 Height 5 ft 3 in BMI Reason not done Patient refused/unable BP 134/60 Blood Pressure Location Rt brachial Position Sitting Pulse 75 Intake Visit Reasons: 1 yr f/up echo and stress prior at some pt Water Main Inspector Required: No Accompanied by: Self / Same As Patient Allergies cephalexin [From KEFLEX] Allergy (Unknown, Verified 11/26/23 19:19) DIARRHEA gabapentin [From NEURONTIN] Allergy (Unknown, Verified 11/26/23 19:19) DIZZINESS- AFFECTED VISION Sulfa (Sulfonamide Antibiotics) [SULFA (SULFONAMIDE ANTIBIOTICS)] Allergy (Unknown, Verified 11/26/23 19:19) ITCH, itchiness Medication List - Last Reconciled 05/10/24 by Dk Saldana MD albuterol sulfate 90 mcg/actuation 2 inhalations inhalation [id number] PRN amlodipine 10 mg PO DAILY [id number]-mwcumypgzdpkr-qjtn 50-300-40 mg (Fioricet) 1 cap PO Q4-6H PRN calcium carbonate (Calcium 500) 500 mg PO DAILY divalproex ER 1,000 mg PO DAILY duloxetine (Cymbalta) 60 mg PO DAILY fluticasone propion-salmeterol 250-50 mcg/dose 1 ea inhalation BID hyoscyamine sulfate 0.125 mg PO DAILY lisinopril 5 mg PO DAILY multivitamin 1 tab PO DAILY nabumetone 500 mg PO BID omeprazole 20 mg PO DAILY ondansetron 4 mg PO Q8H PRN oxybutynin chloride ER 15 mg PO DAILY 90 days rosuvastatin 10 mg PO DAILY tramadol 50 mg PO BID PRN triamterene-hydrochlorothiazid 37.5-25 mg 1 tab PO DAILY HPI Comments Details: Megan returns for follow-up regarding hypertension. In the past, was having very high blood pressures as much as 180 systolic and 90s diastolic. Over time, medications have been optimized and current home blood pressure readings are well within the normal range. Overall, she states she feels fine. No specific cardiac complaints. No angina. [facility] Medical History (Updated 05/10/24 @ 09:04 by Dk Saldana MD) Asthma Hematuria UTI (urinary tract infection) GERD (gastroesophageal reflux disease) Urgency incontinence H/O urinary retention Migraines History of urinary retention Urgency of micturition Urge incontinence Subclavian artery stenosis Essential hypertension Surgical History History of surgery on right wrist History of left shoulder replacement History of left knee replacement History of right shoulder replacement History of tubal ligation History of tonsillectomy Family History Father Heart disease Colon cancer Mother No problems noted. Social History Alcohol intake: current Alcohol intake frequency: a few times a week Alcohol type: wine Patient Tobacco Use Status: Never used Tobacco Review of Systems Const Denies chills, Denies fatigue, Denies fever(s), Denies weight gain and Denies weight loss ENT Denies dizziness Card Denies chest pain, Denies leg edema, Denies lightheadedness, Denies palpitations, Denies dyspnea on exertion, Denies orthopnea and Denies other Resp Denies cough and Denies dyspnea on exertion GI Denies hematochezia and Denies change in stool character Musc Denies abnormal gait, Denies muscle weakness, Denies numbness, Denies radiating pain into limb and Denies tingling Neuro Denies abnormal gait, Denies dizziness, Denies numbness and Denies tingling Endo Denies fatigue and Denies palpitations Physical Exam Vital Signs: Last Vital Signs Pulse 75 05/10/24 08:23 BP 134/60 05/10/24 08:23 Const General: comfortable and no acute distress Orientation/consciousness: patient oriented x3 HEENT Other: Unremarkable Head: Yes normal to inspection Neck Neck: Yes normal visual inspection Chest Chest palpation & inspection: normal inspection of the chest Resp Auscultation: clear to auscultation bilaterally Cardio Palpation: normal PMI Heart sounds: S1 normal heart sound present, S2 normal heart sound present, no gallops, no murmurs and no rubs GI Palpation (GI): Soft to palpation Back/Spine/Pelvis Other: unremarkable Skin General skin exam: no rashes or lesions noted Neuro General: patient oriented x3 Extrem General: Yes normal to inspection Psych Mental Status: mental status grossly normal Office Procedures EKG Details: EKG with underlying sinus rhythm at 75/Min; can not exclude old anterior infarct but could be from lead placement; [place]. [id number], Complete Assessment & Plan Assessment & Plan (1) Essential hypertension: Code(s): I10 - Essential (primary) hypertension Category: Medical (2) Subclavian artery stenosis: Code(s): I77.1 - Stricture of artery Category: Medical (3) Hypokalemia: Code(s): E87.6 - Hypokalemia Category: Medical (4) Hyponatremia: Code(s): E87.1 - Hypo-osmolality and hyponatremia Category: Medical Plan Discussed about home blood pressure readings and they are essentially normal range. Current blood pressure regimen includes amlodipine, lisinopril, triamterene/hydrochlorothiazide. It seems she had some electrolytes checked when she was in the ER for headache few months back. They were abnormal. She had both hyponatremia as well as hypokalemia. They need to be rechecked. Previously reported left subclavian stenosis on a carotid ultrasound but no symptoms from this at all. Cardiac testing-2022 Echocardiogram with LVEF of 59%. Moderate septal hypertrophy. No wall motion abnormalities. No significant valvular findings. In the stress test, able to reach 9 METS on Demetrio protocol and reached target heart rate; no angina. Perfusion imaging was normal. We will review labs and make any necessary changes. Otherwise, follow-up in 1 year. She will contact us with any concerns. Orders: Orders Basic Metabolic Panel Today I10 - Essential (primary) hypertension Coding Level of Care Code Est Pt Level 4 (19324) Diagnoses Essential hypertension I10 Subclavian artery stenosis I77.1 Hypokalemia E87.6 Hyponatremia E87.1 CPT Codes EKG - CPT: 48881-Sfiiysxifusypkjcb, Complete ([id number])
== END 2024-05-10 08:42 | disposition home or self-care (01) ==
PROVIDERS: Visit Provider Internal Medicine
DX: I10 Essential (primary) hypertension (principal); I77.1 Stricture of artery; E87.6 Hypokalemia; E87.1 Hypo-osmolality and hyponatremia
CPT/HCPCS: 93010; 99214

== ENCOUNTER → 2024-05-10 07:57 | Outpatient (BNVA) | payer MEDICARE, OTHER, SELFPAY | PROVIDERS: Visit Provider Internal Medicine | DX: I10 Essential (primary) hypertension (principal); I77.1 Stricture of artery; E87.6 Hypokalemia; E87.1 Hypo-osmolality and hyponatremia | CPT/HCPCS: 93005; 99212 ==

== ENCOUNTER 2024-05-20 08:29 | Outpatient (REF) | payer MEDICARE, OTHER, SELFPAY ==
[2024-05-20 10:15] LABS: Anion Gap 14 (12-20); Blood Urea Nitrogen 20 mg/dL (9-16); Calcium 9.8 mg/dL (8.4-10.2); Carbon Dioxide 28 mmol/L (22-29); Chloride 99 mmol/L (96-108); Estimated Glomerular Filt Rate > 60; Glucose Random 105 mg/dL (60-115); Potassium 4.1 mmol/L (3.3-5.1); Sodium 137 mmol/L (135-145)
== END 2024-05-20 08:30 | disposition home or self-care (01) ==
LOC: HO.LAB 08:29
PROVIDERS: PCP Internal Medicine; Visit Provider Internal Medicine
DX: I10 Essential (primary) hypertension (principal)
CPT/HCPCS: 36415; 80048

== ENCOUNTER 2024-07-10 15:54 | Outpatient (REF) | payer MEDICARE, OTHER, SELFPAY ==
--- NOTE | ~2024-07-10 | XR_ITS ---
EXAMINATION: XR CHEST CLINICAL INFORMATION: cough, asthma COMPARISON: 09/15/2023 TECHNIQUE: Frontal and lateral views of the chest were obtained. FINDINGS: The lungs are clear. There are no pleural effusions. The cardiomediastinal silhouette is stable. Bilateral shoulder replacements are again evident. XR/XR chest 2V IMPRESSION: No acute disease Electronically signed by: Tohr Song MD 07/11/2024 08:55 AM EST
== END 2024-07-10 15:55 | disposition home or self-care (01) ==
LOC: HO.XRAY 15:54
PROVIDERS: PCP Internal Medicine; Visit Provider Internal Medicine
DX: R05.9 Cough, unspecified (principal); J45.909 Unspecified asthma, uncomplicated
CPT/HCPCS: 71046

== ENCOUNTER 2024-11-08 15:12 | Outpatient (AMB) | payer MEDICARE, OTHER, SELFPAY ==
[2024-11-08 15:36] VITALS: BP 138/78; PULSE 66; RESP 14; TEMP 36.4; O2SAT 97; BMI 27.6
--- NOTE | 2024-11-08 15:36 | MHC.PC.OV ---
Vital Signs 11/08/24 15:36 Height 5 ft 3 in Weight 156 lb BMI 27.6 BP 138/78 Respiration 14 Pulse 66 Pulse Source Pulse Oximeter Temp 97.6 F Temp Source Temporal Artery Scan Pulse Oximetry (%) 97 Oxygen Delivery Method Room Air Intake Visit Reasons: Routine Operational Communication Chief Required: No Accompanied by: Self / Same As Patient Allergies cephalexin [From KEFLEX] Allergy (Unknown, Verified 11/08/24 15:36) DIARRHEA gabapentin [From NEURONTIN] Allergy (Unknown, Verified 11/08/24 15:36) DIZZINESS- AFFECTED VISION Sulfa (Sulfonamide Antibiotics) [SULFA (SULFONAMIDE ANTIBIOTICS)] Allergy (Unknown, Verified 11/08/24 15:36) ITCH, itchiness Tobacco use date assessed: 11/08/24 Fall risk assessment: 1 Fall in past year Last assessed Fall Risk: 11/08/24 Dental Screening Dental Screen Date: 11/08/24 Did you have a dental visit in the last 12 months?: Yes Did you have a dental problem in the last 6 months where you did not have access to dental care?: No [facility] Medical History (Updated 11/08/24 @ 16:08 by Lucius Hannon MD) Asthma Hematuria UTI (urinary tract infection) GERD (gastroesophageal reflux disease) Urgency incontinence H/O urinary retention Migraines History of urinary retention Urgency of micturition Urge incontinence Subclavian artery stenosis Essential hypertension Surgical History History of surgery on right wrist History of left shoulder replacement History of left knee replacement History of right shoulder replacement History of tubal ligation History of tonsillectomy Family History Father Heart disease Colon cancer Mother No problems noted. Social History Housing: House Alcohol intake: current Alcohol intake frequency: a few times a week Alcohol type: wine Patient Tobacco Use Status: Never used Tobacco service: No Current occupational status: retired Cognitive needs: No Hearing needs: Yes (b/l hearing aids) Vision needs: Yes (reading glasses) Questionnaire PHQ-9 Over the last 2 weeks, how often have you been bothered by any of the following problems? 1. Little interest or pleasure in doing things: not at all 2. Feeling down, depressed, or hopeless: not at all 3. Trouble falling or staying asleep, or sleeping too much: not at all 4. Feeling tired or having little energy: not at all 5. Poor appetite or overeating: not at all 6. Feeling bad about yourself - or that you are a failure or have let yourself or your family down: not at all 7. Trouble concentrating on things, such as reading the newspaper or watching television: not at all 8. Moving or speaking so slowly that other people could have noticed. Or the opposite - being so fidgety or restless that you have been moving around a lot more than usual: not at all 9. Thoughts that you would be better off or of hurting yourself in some way: not at all Total score: 0 Source: Developed by Drs. Jose J Albarran, Hazel Mittal, Toni Andino and colleagues, with an educational jigna from [employer]. Thrive Questionnaire Date Thrive assessed: 11/08/24 I am a: Patient What is your living situation today?: I have a steady place to live Within the past 12 months, did the food you bought not last and you didn't have the money to get more?: Never true Within the past 12 months, did you worry whether your food would run out before you got money to buy more?: Never true Do you have trouble paying for medicines?: No Do you have trouble getting transportation to medical appointments?: No Do you have trouble paying your heating and electricity bill?: No Do you have trouble taking care of your child, family member or friend?: No Do you have trouble with day-to-day activities such as bathing, preparing meals, shopping, managing finances, etc.?: No Are you currently unemployed and looking for a job?: No Are you interested in more education?: No THRIVE Score: 0 AUDIT C Alcohol Use Questionnaire (AUDIT-C) 1. How often do you have a drink containing alcohol?: 2-3 times a week 2. How many drinks containing alcohol do you have on a typical day when you are drinking?: 1 or 2 3. How often do you have six or more drinks on one occasion?: Never Total Score: 3 SOFYA-7 AMB Questionnaire SOFYA-7 Date SOFYA - 7 assessed: 11/08/24 Feeling nervous, anxious, or on edge: 0 = Not at all Not being able to stop or control worryin = Not at all Worrying too much about different things: 0 = Not at all Trouble relaxin = Not at all Being so restless that it is hard to sit still: 0 = Not at all Becoming easily annoyed or irritable: 0 = Not at all Feeling afraid as if something awful might happen: 0 = Not at all Total SOFYA-7 score (0-4 normal; 5-9 mild; 10-14 moderate; 15-21 severe): 0 Source: Developed by Drs. Jose J Albarran, Hazel Mittal, Toni Andino and colleagues, with an educational jigna from [employer]. Physical exam (Primary Care) Vital Signs: Last Vital Signs Temp 97.6 F 11/08/24 15:36 Pulse 66 11/08/24 15:36 Resp 14 11/08/24 15:36 BP 138/78 11/08/24 15:36 Pulse Ox 97 11/08/24 15:36 Oxygen Delivery Method Room Air 11/08/24 15:36 BMI result Body Mass Index 27.6 Tobacco/Smoking Status: Tobacco use Status Tobacco use date assessed 11/08/24 11/08/24 15:50 Patient Tobacco Use Status Never used Tobacco 11/08/24 15:50 PHQ-9: PHQ-9 Score PHQ-9: Total score 0 11/08/24 15:50 Thrive Assessment: Date of Thrive Assessment Date Thrive assessed 11/08/24 11/08/24 15:50 Coding Level of Care Code New Pt Level 3 (88808) Complex EM visit Add On G2211 Diagnoses GERD (gastroesophageal reflux disease) K21.9 Assessment & Plan Assessment & Plan (1) GERD (gastroesophageal reflux disease): Code(s): K21.9 - Gastro-esophageal reflux disease without esophagitis Category: Medical Plan: PPI called in Plan History of Present Illness The patient is a 69-year-old female presenting with a request for an omeprazole refill. She reports experiencing heartburn about two to three times monthly, severe enough to require medication. The patient uses omeprazole, 40 mg, on an intermittent basis, only when episodes of heartburn occur. After one or two days of treatment, her symptoms usually resolve, indicating that she does not use the medication on a continuous daily basis. Her current use pattern of omeprazole has been consistent for the past year. Social History Review of Systems - Gastrointestinal: Reports experiencing heartburn intermittently, approximately two to three episodes per month Physical Exam General: Cooperative and healthy appearing Nutritional Appearance: Well nourished Orientation/consciousness: Patient oriented x3 Limitations: No limitations Head: Normal to inspection General: Appearance normal, both eyes and all related structures Neck: Normal visual inspection Chest: Normal palpation of entire chest wall Respiratory: Normal respiratory effort Neurology: Patient oriented x3 Results Plan The patient will continue her current management regimen of omeprazole 40 mg taken intermittently for episodes of heartburn. This approach effectively manages her symptoms while minimizing prolonged exposure to medication, which is beneficial given her current pattern of usage. Follow-up is scheduled for three months from today to evaluate the ongoing effectiveness and safety of this medication strategy. Patient was informed and verbally consented to the use of an ambient scribe for clinic note documentation during this visit. Discussion Notes I discussed with the patient the plan to continue using omeprazole at a dosage of 40 mg as needed during episodes of heartburn, reiterating the effective management of symptoms with this approach. We discussed the potential risks and benefits associated with intermittent vs. continuous use of omeprazole. The patient expressed understanding and agreement with this plan. We will evaluate her symptoms and medication use again in three months during the next scheduled appointment. Patient Instructions - Continue omeprazole 40 mg as needed for heartburn. - Monitor symptoms and take the medication only during significant discomfort. - Follow up with blood work as planned. - Schedule a follow-up appointment in three months. - Contact the office if symptoms change or worsen. Medications: New omeprazole 20 mg PO DAILY 90 caps 1RF
--- OUTSIDE RECORDS SUMMARY | 2024-11-08 17:14 | XMS_ITS | Patient Health Record ---
Author Organization [facility] Address [address] [place] [phone] Care Team Providers Care Web Operations Lead Name Role Phone Demetrio Gonzales MD Primary Care Provider Jose J Sol [phone] Allergies Allergen (clinical drug ingredient) Drug/Non Drug Allergy documented on EMR Reaction Allergy Type Onset Date Status Sulfa Unknown Drug Allergy Active gabapentin Neurontin Unknown Drug Allergy Active Keflex Unknown Drug Allergy Active Reason For Referral No Information Medications Medication SIG (Take, Route, Frequency, Duration) Notes Start Date End Date Status Hyoscyamine Sulfate 0.125 MG 1-2 Orally Q 4-6 hours prn abdominal cramps/bloating for 90 days 12/22/2021 Not-Taking Nabumetone 500 MG 1 tablet Orally Twice a day Active Hyoscyamine Sulfate 0.125 MG 1-2 tablets Orally Q4-6 hours prn abdominal cramps/bloating for 90 days 07/03/2019 Not-Taking Cholestyramine 4 GM/DOSE 1 scoop mixed i n a glass of water or orange juice Orally QD -BID for diarrhea for 30 day(s) 05/09/2020 Not-Taking Hyoscyamine Sulfate ER 0.375 MG 1 tablet Orally Twice a day for 30 day(s) 05/11/2023 Active Imodium A-D 2 MG 1-2 tablets Orally Four times a day prn diarrhea for 30 days 05/01/2020 Active Hyoscyamine Sulfate ER 0.375 MG 1 tablet Orally Twice a day every morning before breakfast and every late afternoon before dinner 09/08/2022 Active traMADol HCl 50 MG 1 tablet as needed Orally twice a day Active Hyoscyamine Sulfate ER 0.375 MG 1 tablet Orally every 12 hrs for 90 days 07/13/2023 Active Multivitamin Women A ctive amLODIPine Besylate 2.5 MG 1 tablet Orally Once a day Active Cymbalta 60 MG 1 capsule Orally Once a day Active Aspirin 81 MG 1 tablet Orally twice a week Active Simvastatin 40 MG 1 tablet in the evening Orally Once a day Active Depakote 500 MG 1 tablet Orally Once a day Active Omeprazole 20 MG 1 capsule Orally Once a day/as needed Just prn Active Triamterene-HCTZ 37.5-25 MG 1 tablet in the morning Orally Once a day Active Immunizations Vaccine Route Administration Date Status Comme nts Influenza Unknown 05/23/2018 Administered Influenza Unknown 04/23/2022 Administered Problems Problem Type SNOMED Code ICD Code Onset Dates Problem Status W/U Status Risk Notes Problem Esophageal reflux (430878473) Esophageal reflux (K21.9) Active confirmed Problem 624177247 Encounter for screening for malignant neoplasm of colon (Z12.11) Active confirmed Problem 499103251 Irritable bowel syndrome with diarrhea (K58.0) Active confirmed Problem Dysphagia (36421657) Dysphagia (R13.10) Active confirmed Problem 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) Gastric polyps (K31.7) Active confirmed Problem Gastritis (9875833) Gastritis (K29.70) Active confirmed Problem 15089673 Incontinence of feces, unspecified fecal incontinence type (R15.9) Active confirmed Problem 283799878 Gastroesophageal reflux disease, unspecified whether esophagitis present (K21.9) Active confirmed Problem 74114146 Esophageal dysph agia (R13.19) Active confirmed Encounters Encounter Location Date Provider Diagnosis [facility] [address] [place] [phone] 04/27/2024 Jose J Santamaria [facility] [address] [place] [phone] 06/27/2024 Jose J Santamaria [facility] [address] [place] [phone] 07/24/2024 Jose J Santamaria Plan Of Treatment Pending Test Test Name Order Date CELIAC PANEL #10 02/06/2015 CELIAC PANEL #10 09/08/2022 CALPROTECTIN, STOOL 09/08/2022 Future Test Test Name Order Date COLONOSCOPY 10/04/2018 UPPER GI ENDOSCOPY [place] DILATION OF ESOPH 01/14/2023 Insurance Providers Payer Name Payer Address Payer Phone Subscriber Number Group Number Insured Name Patient Relationship to Insured Coverage Start Date Coverage End Date [employer] [address] [place] [address] [id number] CASHLAURO Self - patient is the insured [facility] [address] [address] [place] [address] [id number] BRYANNA CASHLYN Self - patient is the insured Medical (General) History Medical History History ICD Code Colonoscopy 07-08-2009 and 2 006--neg. for polyps, neg for microscopic colitis--she has had previous colonoscopies with Dr. Hearn as well Asthma Hypertension Migraines--on Depakote Hyperlipidemia Leg and back pain--on Cymbalta and Morph ine Irritable bowel syndrome wit h diarrhea--she had a negative celiac disease profile in January of 2015 Denies NV,DM,CVA,renal disease Urinary incontinence Negative colonoscopy in 2018, although t he prep was somewhat limited Surgical History Surgery Date(Month/Year) Both shoulder replacements 2016/2017 Both elbows Umbillical hernia Tubal ligation Left knee replacement 2017 Bilateral eyes
--- OUTSIDE RECORDS SUMMARY | 2024-11-08 17:14 | XMS_ITS ---
Author Organization [facility] Address [address] [place] [phone] Care Team Providers Care Continuous Churn Buttermaker Name Role Phone Demetrio Gonzales MD Primary Care Provider Jose J Sol [phone] REASON FOR VISIT please refill hyoscyamine Medications Medication SIG (Take, Route, Frequency, Duration) Notes Start Date End Date Status Hyoscyamine Sulfate ER 0.375 MG 1 tablet Orally every 12 hrs for 90 days 07/13/2023 Active Encounters Encounter Location Date Provider Diagnosis [facility] [address] [place] [phone] 04/27/2024 Jose J Santamaria Plan Of Treatment Medication Medication Name Sig Start Date Stop Date Notes Hyoscyamine Sulfate ER 0.375 MG 1 tablet Orally every 12 hrs for 90 days 07/13/2023 Progress Notes * SHANIQUE CASHOB: (68 yo F)Acc No.[id number]:04/27/2024 Patient:?CASHBRYANNALAURO :1955???Age:68 Y???Sex:Female Address:[address] [place] [address] * Refills? Refill Hyoscyamine Sulfate ER Tablet Extended Release 12 Hour, 0.375 MG, Orally, 180 Tablet, 1 tablet, every 12 hrs, 90 days, Refills=3 * true * Date:? Generated for Anil saucedo/Marga/eTransmitting on:?11/08/2024 07:48 AM EDT
--- OUTSIDE RECORDS SUMMARY | 2024-11-08 17:14 | XMS_ITS ---
Author Organization [facility] Address [address] [place] [phone] Care Team Providers Care Gridcap Machine Operator Name Role Phone Demetrio Gonzales MD Primary Care Provider Jose J Sol [phone] REASON FOR VISIT Hyoscyamine sulfate 0.125mg Medications Medication SIG (Take, Route, Frequency, Duration) Notes Start Date End Date Status Hyoscyamine Sulfate ER 0.375 MG 1 tablet Orally every 12 hrs for 90 days 07/13/2023 Active Encounters Encounter Location Date Provider Diagnosis [facility] [address] [place] [phone] 06/27/2024 Jose J Santamaria Plan Of Treatment Medication Medication Name Sig Start Date Stop Date Notes Hyoscyamine Sulfate ER 0.375 MG 1 tablet Orally every 12 hrs for 90 days 07/13/2023 Progress Notes * SHANIQUE CASHOB: (68 yo F)Acc No.[id number]:06/27/2024 Patient:?SHAILESHBRYANNALAURO :1955???Age:68 Y???Sex:Female Address:[address] [place] [address] * Refills? Refill Hyoscyamine Sulfate ER Tablet Extended Release 12 Hour, 0.375 MG, Orally, 180 Tablet, 1 tablet, every 12 hrs, 90 days, Refills=3 * true * Date:? Generated for Anil saucedo/Marga/eTransmitting on:?11/08/2024 05:14 PM EDT
--- OUTSIDE RECORDS SUMMARY | 2024-11-08 17:14 | XMS_ITS ---
Author Organization [facility] Address [address] [place] [phone] Care Team Providers Care Electric Meter Tester Helper Name Role Phone Demetrio Gonzales MD Primary Care Provider Jose J Sol [phone] REASON FOR VISIT New Refill Request Medications Medication SIG (Take, Route, Frequency, Duration) Notes Start Date End Date Status Hyoscyamine Sulfate ER 0.375 MG 1 tablet Orally every 12 hrs for 90 days 07/13/2023 Active Encounters Encounter Location Date Provider Diagnosis [facility] [address] [place] [phone] 07/24/2024 Jose J Santamaria Plan Of Treatment Medication Medication Name Sig Start Date Stop Date Notes Hyoscyamine Sulfate ER 0.375 MG 1 tablet Orally every 12 hrs for 90 days 07/13/2023 Progress Notes * SHANIQUE CASHOB: (68 yo F)Acc No.[id number]:07/24/2024 Patient:?SHAILESHBRYANNALAURO :1955???Age:68 Y???Sex:Female Address:[address] [place] [address] * Refills? Refill Hyoscyamine Sulfate ER Tablet Extended Release 12 Hour, 0.375 MG, Orally, 180 Tablet, 1 tablet, every 12 hrs, 90 days, Refills=3 * true * Date:? Generated for Printi lewis/Fairinag/eTransmitting on:?11/08/2024 07:48 AM EDT
== END 2024-11-08 16:06 | disposition home or self-care (01) ==
LOC: HO.HMCHD 15:12
PROVIDERS: PCP Internal Medicine; Visit Provider Internal Medicine
DX: K21.9 Gastro-esophageal reflux disease without esophagitis (principal)

== ENCOUNTER → 2024-11-08 15:12 | Outpatient (BNVA) | payer MEDICARE, OTHER, SELFPAY | PROVIDERS: PCP Internal Medicine; Visit Provider Internal Medicine | DX: K21.9 Gastro-esophageal reflux disease without esophagitis (principal) | CPT/HCPCS: 99202 ==

== ENCOUNTER 2025-01-24 15:37 | Outpatient (AMB) | payer MEDICARE, OTHER, SELFPAY ==
[2025-01-24 15:31] VITALS: BP 122/70; PULSE 62; TEMP 36.4; O2SAT 97; BMI 26.0
--- NOTE | 2025-01-24 15:31 | A.OFFPC_ITS ---
Vital Signs 01/24/25 15:31 Height 5 ft 3 in Weight 147 lb BMI 26.0 BP 122/70 Blood Pressure Location Rt brachial Position Sitting Pulse 62 Pulse Source Pulse Oximeter Temp 97.5 F Temp Source Axillary Pulse Oximetry (%) 97 Oxygen Delivery Method Room Air Intake Visit Reasons: visit Milk Bottler Required: No Accompanied by: Self / Same As Patient Allergies cephalexin [From KEFLEX] Allergy (Unknown, Verified 01/24/25 15:32) DIARRHEA gabapentin [From NEURONTIN] Allergy (Unknown, Verified 01/24/25 15:32) DIZZINESS- AFFECTED VISION Sulfa (Sulfonamide Antibiotics) [SULFA (SULFONAMIDE ANTIBIOTICS)] Allergy (Unknown, Verified 01/24/25 15:32) ITCH, itchiness Tobacco use date assessed: 01/24/25 Fall risk assessment: No Falls in past year Last assessed Fall Risk: 01/24/25 Dental Screening Dental Screen Date: 01/24/25 Did you have a dental visit in the last 12 months?: Yes Did you have a dental problem in the last 6 months where you did not have access to dental care?: No PFSH Medical History Asthma Hematuria UTI (urinary tract infection) GERD (gastroesophageal reflux disease) Urgency incontinence H/O urinary retention Migraines History of urinary retention Urgency of micturition Urge incontinence Subclavian artery stenosis Essential hypertension Surgical History History of colonoscopy (~11/14/18) History of surgery on right wrist History of left shoulder replacement History of left knee replacement History of right shoulder replacement History of tubal ligation History of tonsillectomy Family History (Updated 01/24/25 @ 16:32 by Verna Graf MA) Father Heart disease Colon cancer Mother No problems noted. Social History Housing: House Alcohol intake: current Alcohol intake frequency: a few times a week Alcohol type: wine Patient Tobacco Use Status: Never used Tobacco e-Cigarette/Vaping Use: Never Used service: No Current occupational status: retired Cognitive needs: No Hearing needs: Yes (b/l hearing aids) Vision needs: Yes (reading glasses) Questionnaire PHQ-9 Over the last 2 weeks, how often have you been bothered by any of the following problems? 1. Little interest or pleasure in doing things: not at all 2. Feeling down, depressed, or hopeless: not at all 3. Trouble falling or staying asleep, or sleeping too much: not at all 4. Feeling tired or having little energy: not at all 5. Poor appetite or overeating: not at all 6. Feeling bad about yourself - or that you are a failure or have let yourself or your family down: not at all 7. Trouble concentrating on things, such as reading the newspaper or watching television: not at all 8. Moving or speaking so slowly that other people could have noticed. Or the opposite - being so fidgety or restless that you have been moving around a lot more than usual: not at all 9. Thoughts that you would be better off or of hurting yourself in some way: not at all Total score: 0 Source: Developed by Drs. Jose J Albarran, Hazel Mittal, Toni Andino and colleagues, with an educational jigna from [employer]. Thrive Questionnaire Date Thrive assessed: 01/24/25 I am a: Patient Within the past 12 months, did the food you bought not last and you didn't have the money to get more?: Never true Within the past 12 months, did you worry whether your food would run out before you got money to buy more?: Never true Do you have trouble paying for medicines?: No Do you have trouble getting transportation to medical appointments?: No Do you have trouble paying your heating and electricity bill?: No Do you have trouble taking care of your child, family member or friend?: No Do you have trouble with day-to-day activities such as bathing, preparing meals, shopping, managing finances, etc.?: No Are you currently unemployed and looking for a job?: No Are you interested in more education?: No THRIVE Score: 0 AUDIT C Alcohol Use Questionnaire (AUDIT-C) 1. How often do you have a drink containing alcohol?: Monthly or less 2. How many drinks containing alcohol do you have on a typical day when you are drinking?: 1 or 2 3. How often do you have six or more drinks on one occasion?: Less than monthly Total Score: 2 SOFYA-7 AMB Questionnaire SOFYA-7 Date SOFYA - 7 assessed: 01/24/25 Feeling nervous, anxious, or on edge: 0 = Not at all Not being able to stop or control worryin = Not at all Worrying too much about different things: 0 = Not at all Trouble relaxin = Not at all Being so restless that it is hard to sit still: 0 = Not at all Becoming easily annoyed or irritable: 0 = Not at all Feeling afraid as if something awful might happen: 0 = Not at all Total SOFYA-7 score (0-4 normal; 5-9 mild; 10-14 moderate; 15-21 severe): 0 Source: Developed by Drs. Jose J Albarran, Hazel Mittal, Toni Andino and colleagues, with an educational jigna from [employer]. Physical exam (Primary Care) Vital Signs: Last Vital Signs Temp 97.5 F 01/24/25 15:31 Pulse 62 01/24/25 15:31 BP 122/70 01/24/25 15:31 Pulse Ox 97 01/24/25 15:31 Oxygen Delivery Method Room Air 01/24/25 15:31 BMI result Body Mass Index 26.0 Tobacco/Smoking Status: Tobacco use Status Tobacco use date assessed 01/24/25 01/24/25 15:33 Patient Tobacco Use Status Never used Tobacco 01/24/25 15:33 e-Cigarette/Vaping Use Never Used 01/24/25 15:33 PHQ-9: PHQ-9 Score PHQ-9: Total score 0 01/24/25 16:33 Thrive Assessment: Date of Thrive Assessment Date Thrive assessed 01/24/25 01/24/25 15:33 Coding Level of Care Code New Pt Level 4 (32755) Complex EM visit Add On G2211 Diagnoses GERD (gastroesophageal reflux disease) K21.9 Assessment & Plan Assessment & Plan (1) GERD (gastroesophageal reflux disease): Code(s): K21.9 - Gastro-esophageal reflux disease without esophagitis Category: Medical Plan History of Present Illness - The patient is a 69-year-old female presenting with allergic symptoms and upper respiratory concerns. - Patient has consistent allergies and cold symptoms, with regular use of two types of inhalers for relief. - Persistent laryngitis for three weeks not resolving with current treatments. - GERD managed effectively on a 40 mg dose of omeprazole. - Chronic back pain under management with tramadol, previously on morphine. - Painful lymph nodes indicating the possibility of lymphadenopathy. Social History Review of Systems - Respiratory: Reports persistent allergic symptoms and upper respiratory infection. Uses inhalers as needed. - Gastrointestinal: Denies current stomach issues. Reports GERD managed with medication. - Musculoskeletal: Reports chronic back pain. - Lymphatic: Reports pain in lymph nodes. - General/Other: Reports long-term laryngitis. Physical Exam General: Cooperative and healthy appearing Nutritional Appearance: Well nourished Orientation/consciousness: Patient oriented x3 Limitations: No limitations Head: Normal to inspection General: Appearance normal, both eyes and all related structures Neck: Normal visual inspection Chest: Normal palpation of entire chest wall Respiratory: Patient reports allergies and uses two kinds of inhalers, one used three times a day and another once or twice a day. ormal respiratory effort Neurology: Patient oriented x3 Results - Tests and diagnostics: Azithromycin was prescribed for respiratory infection. Plan 1. Allergic Rhinitis - Azithromycin prescribed for symptoms resembling upper respiratory infection. - Maintenance of current inhaler regimen. 2. Upper Respiratory Infection - Initiated azithromycin 250 mg, with specific dosing instructions for symptom resolution. 3. Gastroesophageal Reflux Disease Gerd - Continue 40 mg omeprazole for GERD symptom control. 4. Chronic Back Pain - Currently managed with tramadol for pain control. 5. Lymphadenopathy - Monitoring of glands for persistent pain and consideration for future evaluation. Discussion Notes During this visit, the patient's symptoms and concerns were reviewed. The persistence of allergic symptoms warranted prescribing azithromycin for what was suspected to be a respiratory infection. The patient's history of GERD is controlled with omeprazole, while chronic back pain is managed with tramadol after a transition from morphine, aimed at minimizing side effects. The patient was provided instructions on the prescribed dosing of azithromycin. We also discussed monitoring any changes in the condition of her glands indicating lymphadenopathy, ensuring ongoing evaluation. I encouraged the patient to continue the use of inhalers and omeprazole and to schedule follow-ups as necessary. Patient Instructions - Take azithromycin as prescribed: Two tablets today, then one tablet daily for four days. - Continue the use of inhalers as directed for allergy symptoms. - Maintain daily omeprazole for GERD management. - Use tramadol as directed for back pain relief. - Monitor lymph node pain and report changes. - Return for follow-up as needed or if symptoms do not improve.
--- OUTSIDE RECORDS SUMMARY | 2025-01-24 15:45 | XMS_ITS ---
Author Organization [facility] Address [address] [place] [phone] Care Team Providers Care Letterer Name Role Phone Demetrio Gonzales MD Primary Care Provider Jose J Sol [phone] REASON FOR VISIT New Refill Request Medications Medication SIG (Take, Route, Frequency, Duration) Notes Start Date End Date Status Hyoscyamine Sulfate ER 0.375 MG 1 tablet Orally every 12 hrs for 90 days 07/13/2023 Active Encounters Encounter Location Date Provider Diagnosis [facility] [address] [place] [phone] 07/24/2024 Jose J Santamaria Plan Of Treatment Medication Medication Name Sig Start Date Stop Date Notes Hyoscyamine Sulfate ER 0.375 MG 1 tablet Orally every 12 hrs for 90 days 07/13/2023 Progress Notes * SHANIQUE CASHOB: (68 yo F)Acc No.[id number]:07/24/2024 Patient:?SHAILESHBRYANNALAURO :1955???Age:68 Y???Sex:Female Address:[address] [place] [address] * Refills? Refill Hyoscyamine Sulfate ER Tablet Extended Release 12 Hour, 0.375 MG, Orally, 180 Tablet, 1 tablet, every 12 hrs, 90 days, Refills=3 * true * Date:? Generated for Printi lewis/Fairinag/eTransmitting on:?01/24/2025 03:45 PM EDT
== END 2025-01-24 16:44 | disposition home or self-care (01) ==
LOC: HO.HMCHD 15:37
PROVIDERS: PCP Internal Medicine; Visit Provider Internal Medicine
DX: K21.9 Gastro-esophageal reflux disease without esophagitis (principal)

== ENCOUNTER → 2025-01-24 15:37 | Outpatient (BNVA) | payer MEDICARE, OTHER, SELFPAY | PROVIDERS: PCP Internal Medicine; Visit Provider Internal Medicine | DX: K21.9 Gastro-esophageal reflux disease without esophagitis (principal) | CPT/HCPCS: 99212 ==

== ENCOUNTER 2025-02-22 01:29 | Emergency (ER) | payer MEDICARE, OTHER, SELFPAY ==
[2025-02-22 01:31] VITALS: BP 151/58; PULSE 74; RESP 17; TEMP 36.3; O2SAT 96; BMI 26.0
--- NOTE | 2025-02-22 01:41 | ED.NECK ---
HPI - Neck Pain/Injury General Chief Complaint: Neck Pain/Injury Stated Complaint: neck pain Time Seen by Provider: 02/22/25 01:33 Source: patient, family and old records reviewed Mode of arrival: ambulatory Limitations: no limitations History of Present Illness ED Provider: DIGNA MORE Narrative: 69 yo female with PMH of HTN, HLD, migraines, arthritis, trigeminal neuralgia who notes she takes carbamezapine when she has flares and took her dose today as well as tramadol but no relief. She reports no trauma or injury, no chiropractor, no dental procedures. She had an earache and R upper toothache 2 days ago that she thinks triggered this. She has not had a flare up in a while. She denies fevers, she has no numbness, weakness. complaint: other (trigeminal neuralgia) Onset (ago): day(s) (1) Place: home Radiation: right lateral Severity: severe Quality: sharp Duration: intermittent Relieving factors: none Exacerbating factors: movement of neck Context: other Associated symptoms: none Treatments prior to arrival: prescription analgesic Related Data Home Medications ?Medication ?Instructions ?Recorded ?Confirmed calcium carbonate (Calcium 500) 500 mg PO DAILY 08/05/20 05/10/24 duloxetine 60 mg capsule,delayed 60 mg PO DAILY 08/05/20 05/10/24 release (Cymbalta) multivitamin 1 tab PO DAILY 08/05/20 05/10/24 nabumetone 500 mg tablet 500 mg PO BID 08/05/20 05/10/24 tramadol 50 mg tablet 50 mg PO BID PRN Pain 08/05/20 05/10/24 albuterol sulfate 90 mcg/actuation 2 inh inhalation [id number] PRN 01/01/22 05/10/24 aerosol inhaler Shortness Of Breath Or Wheezing fluticasone 250 mcg-salmeterol 50 1 ea inhalation BID 01/01/22 05/10/24 mcg/dose blistr powdr for inhalation hyoscyamine sulfate 0.125 mg tablet 0.125 mg PO DAILY 01/01/22 05/10/24 divalproex 250 mg tablet,extended 1,000 mg PO DAILY 05/10/24 05/10/24 release 24 hr Previous Rx's ?Medication ?Instructions ?Recorded oxybutynin chloride 15 mg 15 mg PO DAILY 90 days #90 tabs 01/01/22 tablet,extended release 24 hr amlodipine 10 mg tablet 10 mg PO DAILY #90 tabs 05/25/24 rosuvastatin 10 mg tablet 10 mg PO DAILY #90 tabs 06/19/24 triamterene 37.5 1 tab PO DAILY #90 tabs 10/23/24 mg-hydrochlorothiazide 25 mg tablet omeprazole 20 mg capsule,delayed 20 mg PO DAILY #90 caps 11/08/24 release lisinopril 5 mg tablet 5 mg PO DAILY #90 tabs 01/08/25 azithromycin 250 mg tablet See Rx Instructions PO .COMPLEX #6 01/25/25 tabs diazepam 5 mg tablet (Valium) 5 mg PO TID PRN muscle spasm #10 02/22/25 tabs Allergies Allergy/AdvReac Type Severity Reaction Status Date / Time cephalexin (From KEFLEX) Allergy Unknown DIARRHEA Verified 02/22/25 01:35 gabapentin (From NEURONTIN) Allergy Unknown DIZZINESS- Verified 02/22/25 01:35 AFFECTED VISION Sulfa (Sulfonamide Allergy Unknown ITCH, Verified 02/22/25 01:35 Antibiotics) (SULFA itchiness (SULFONAMIDE ANTIBIOTICS)) Review of Systems Review of Systems: Constitutional : No Fever, No Chills ENT/Mouth : No sore throat, No Rhinorrhea Eyes: No Eye Pain, No Swelling, No Redness Cardiovascular : No Chest Pain, No SOB, No Dyspnea on Exertion Respiratory : No Cough, No Sputum Gastrointestinal : No Nausea, No Vomiting Musculoskeletal : No joint pain, No Myalgias, No Joint Swelling, pos neck pain Skin : No Skin Lesions, No rash Neuro : No Weakness, No Numbness, No Dizziness, pos Headache All other systems reviewed and are negative [facility] Past Medical History Attestation statement: The following information was validated with the patient. Source: old records reviewed Medical History Asthma Hematuria UTI (urinary tract infection) GERD (gastroesophageal reflux disease) Urgency incontinence H/O urinary retention Migraines History of urinary retention Urgency of micturition Urge incontinence Subclavian artery stenosis Essential hypertension Surgical History History of colonoscopy (~11/14/18) History of surgery on right wrist History of left shoulder replacement History of left knee replacement History of right shoulder replacement History of tubal ligation History of tonsillectomy Family History Family History (Updated 01/24/25 @ 16:32 by Verna Graf MA) Father Heart disease Colon cancer Mother No problems noted. Social History Social History Housing: House Alcohol intake: current Alcohol intake frequency: a few times a week Alcohol type: wine Patient Tobacco Use Status: Never used Tobacco e-Cigarette/Vaping Use: Never Used Advance Directives: No Advance Directives Information Provided: Yes Do you have a plan to hurt others: No Plan service: No Current occupational status: retired Cognitive needs: No Hearing needs: Yes (b/l hearing aids) Vision needs: Yes (reading glasses) Physical Exam Vital Signs: Vital Signs: Last Vital Signs Temp 97.3 F 02/22/25 01:31 Pulse 74 02/22/25 01:31 Resp 17 02/22/25 01:31 BP 151/58 H 02/22/25 01:31 Pulse Ox 96 02/22/25 01:31 O2 Del Method Room Air 02/22/25 01:31 BMI result Body Mass Index 26.0 Appearance: Alert. Oriented X3. No acute distress. Eyes: Pupils equal, round and reactive to light. ENT: Pharynx normal. R TM normal, no rash, normal throat exam. Neck: has ttp along R lateral neck but no rash, UE intact 5/5 2+ radial pulse CVS: Normal heart rate and rhythm. Pulses normal. Respiratory: No respiratory distress. Breath sounds normal. Abdomen: Soft and nontender. Skin: Skin warm and dry. Normal skin color. Extremities: No lower extremity edema. Neuro: Oriented X 3. No motor deficit. No sensory deficit. CN2-12 intact Medications Administered Discontinued Medications Generic Name Dose Route Start Last Admin Trade Name Freq PRN Reason Stop Dose Admin Hydrocodone Bitart/Acetaminophen 1 tab 02/22/25 01:40 02/22/25 02:03 Hydrocodone Bit/Acetam 5/325 Tablet PO 02/22/25 01:41 1 tab ONCE ONE Administration Diazepam 5 mg 02/22/25 01:40 02/22/25 02:03 Diazepam 5 Mg Tablet PO 02/22/25 01:41 5 mg ONCE ONE Administration Medical Decision Making Medical Decision Making MDM Narrative: 69 yo female with PMH of HTN, HLD, migraines, arthritis, trigeminal neuralgia now here with flare up - she is neuro intact, no signs of rash or infection. The patient has no trauma to suggest fracture and no signs of infection on exam will start on oral pain control and reassess. Differential Diagnosis Differential Diagnoses: The differential diagnosis associated with the presentation includes strain, trigeminal neuralgia Admission/Observation Consideration of admission/observation: Escalation of care including admission/observation considered feels better stable for DC Independent Historian Clinical information obtained from an independent historian. History obtained from or confirmed by: Spouse External Record Review External record reviewed: Outpatient record Prescription Management I considered prescription management with: Pain Medication and Other Discharge Plan Discharge Clinical Impression: Trigeminal neuralgia Patient Disposition: Home, Self-Care Instructions: Trigeminal Neuralgia (ED) Additional Instructions: return for any worsening symptoms or concerns such as numbness or weakness be careful with medications. Prescriptions: New diazepam [Valium] 5 mg tablet 5 mg PO TID PRN (Reason: muscle spasm) Qty: 10 0RF Rx Instructions: partial fill is okay No Action amlodipine 10 mg tablet 10 mg PO DAILY Qty: 90 3RF rosuvastatin 10 mg tablet 10 mg PO DAILY Qty: 90 3RF triamterene-hydrochlorothiazid 37.5-25 mg tablet 1 tab PO DAILY Qty: 90 3RF lisinopril 5 mg tablet 5 mg PO DAILY Qty: 90 3RF azithromycin 250 mg tablet See Rx Instructions PO .COMPLEX Qty: 6 0RF Rx Instructions: take 500 mg today (day 1), then 250 mg for 4 days (days 2-5) PO nabumetone 500 mg tablet 500 mg PO BID tramadol 50 mg tablet 50 mg PO BID PRN (Reason: Pain) duloxetine [Cymbalta] 60 mg capsule,delayed release(DR/EC) 60 mg PO DAILY multivitamin Tablet 1 tab PO DAILY calcium carbonate [Calcium 500] 500 mg calcium (1,250 mg) tablet 500 mg PO DAILY divalproex 250 mg tablet extended release 24 hr 1,000 mg PO DAILY hyoscyamine sulfate 0.125 mg tablet 0.125 mg PO DAILY albuterol sulfate 90 mcg/actuation HFA aerosol inhaler 2 inh inhalation [id number] PRN (Reason: Shortness Of Breath Or Wheezing) fluticasone propion-salmeterol 250-50 mcg/dose blister with device 1 ea inhalation BID oxybutynin chloride 15 mg tablet extended release 24 hr 15 mg PO DAILY 90 Days Qty: 90 0RF omeprazole 20 mg capsule,delayed release(DR/EC) 20 mg PO DAILY Qty: 90 1RF Print Language: Malay
--- OUTSIDE RECORDS SUMMARY | 2025-02-22 02:00 | XMS_ITS | Patient Health Record ---
Author Organization [facility] Address [address] [place] [id number] Care Team Providers Care Exploration Manager Name Role Phone Demetrio Gonzales MD Primary Care Provider Jose J Sol [phone] Allergies Allergen (clinical drug ingredient) Drug/Non Drug [...] W/U Status Risk Notes Problem Esophageal reflux (463655699) Esophageal reflux (K21.9) Active confirmed Problem [id number] Encounter for screening for malignant neoplasm of colon (Z12.11) Active confirmed Problem 689079017 Irritable bowel syndrome with diarrhea (K58.0) Active confirmed Problem Dysphagia (98772729) Dysphagia (R13.10) Active confirmed Problem 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) Gastric polyps (K31.7) Active confirmed Problem Gastritis (9314097) Gastritis (K29.70) Active confirmed Problem 87381969 Incontinence of feces, unspecified fecal incontinence type (R15.9) Active confirmed Problem 654665126 Gastroesophageal reflux disease, unspecified whether esophagitis present (K21.9) Active confirmed Problem 01279494 Esophageal dysph agia (R13.19) Active confirmed Encounters Encounter Location Date Provider Diagnosis [facility] [address] [place] [phone] 04/27/2024 Jose J Santamaria [facility] [address] [place] [phone] 06/27/2024 Jose J Santamaria [facility] [address] [place] [phone] 07/24/2024 Jose J Santamaria Plan Of Treatment Pending Test Test Name Order Date CELIAC PANEL #10 09/08/2022 CELIAC PANEL #10 02/06/2015 CALPROTECTIN, STOOL 09/08/2022 Future Test Test Name Order Date COLONOSCOPY 10/04/2018 UPPER GI ENDOSCOPY [place] DILATION OF ESOPH 01/14/2023 Insurance Providers Payer Name Payer Address Payer Phone Subscriber Number Group Number Insured Name Patient Relationship to Insured Coverage Start Date Coverage End Date [employer] [place] [address] [place] [address] [id number] C[place]O Self - patient is the insured [facility] [address] [address] [place] [address] [id number] BRYANNA CASHLYN Self - patient is the [...] disease profile in January of 2015 Denies DC,DM,CVA,renal disease Urinary incontinence Negative colonoscopy in 2018, although t he prep was somewhat limited Surgical History Surgery Date(Month/Year) Both shoulder replacements 2016/2017 Both elbows Umbillical hernia Tubal ligation Left knee replacement 2017 Bilateral eyes
[2025-02-22] MEDS: HYDROcodone Bit/Acetam 5/325 TABLET 1 TAB PO (02:03)
--- NOTE | 2025-02-22 03:12 | PC.NURSE ---
PT REPORTS SOME MILD PAIN RELIEF, 6/10 ON NUMERIC PAIN SCALE.
[2025-02-22 04:30] VITALS: BP 129/68; PULSE 69; RESP 18; TEMP 36.2; O2SAT 98
== END 2025-02-22 04:32 | disposition home or self-care (01) ==
PROVIDERS: Emergency Provider Emergency Medicine
DX: G50.0 Trigeminal neuralgia (principal); I10 Essential (primary) hypertension; Z79.899 Other long term (current) drug therapy
CPT/HCPCS: 99283; 99284

== ENCOUNTER 2025-02-23 20:24 | Emergency (ER) | payer MEDICARE, OTHER, SELFPAY ==
[2025-02-23 20:27] VITALS: BP 120/66; PULSE 74; RESP 17; TEMP 36.6; O2SAT 99; BMI 28.7
--- NOTE | 2025-02-23 20:27 | ED_ITS ---
HPI - General Adult General Chief complaint: Neck Pain/Injury Stated complaint: right side of neck down to shoulder pain Time Seen by Provider: 02/23/25 20:47 History of Present Illness ED Provider: Eitan MORE narrative: The patient is a 69-year-old female who says that she has had problems for 8 years with the what has been called trigeminal neuralgia. She says the 1st time she experienced this she thought she has a bad tooth on the right side of her face. She was ultimately given a diagnosis of trigeminal neuralgia. She sees Dr. Tee Oneal the neurologist in [place]. She has carbamazepine tablets that she uses on an as-needed basis for flares of her trigeminal neuralgia. She also has tramadol for this purpose. She estimates that she has 2-3 episodes per year. She says that on this occasion she started to have pain 3 days ago on Wednesday. She says that she a 1st thought that she had an earache and did not take her carbamazepine as soon as she might have. She says that the pain worsened to the point where her regular medications were not helping her. She came to the emergency room yesterday and was evaluated and was prescribed diazepam. The patient use the diazepam at home along with her other medications today but did not get any relief and returns to the emergency room because of ongoing significant pain in the right side of her head. She says it radiates into her right shoulder. She says that this feels very similar but more severe than previous episodes of trigeminal neuralgia. No fever, sweats, chills. No nausea or vomiting. Related Data Home Medications ?Medication ?Instructions ?Recorded ?Confirmed calcium carbonate (Calcium 500) 500 mg PO DAILY 05/10/24 duloxetine 60 mg capsule,delayed 60 mg PO DAILY 05/10/24 release (Cymbalta) multivitamin 1 tab PO DAILY 08/05/2004/23 nabumetone 500 mg tablet 500 mg PO BID 08/05/2005/10 tramadol 50 mg tablet 50 mg PO BID PRN Pain 05/10/24 albuterol sulfate 90 mcg/actuation 2 inh inhalation Q3 MONTHS PRN 01/01/22 05/10/24 aerosol inhaler Shortness Of Breath Or Wheez ing fluticasone 250 mcg-salmeterol 50 1 ea inhalation BID 01/01/22 05/10/24 mcg/dose blistr powdr for inhalation hyoscyamine sulfate 0.125 mg tablet 0.125 mg PO DAILY 01/01/22 05/10/24 divalproex 250 mg tablet,extended 1,000 mg PO DAILY 05/10/24 release 24 hr Previous Rx's ?Medication ?Instructions ?Recorded oxybutynin chloride 15 mg 15 mg PO DAILY 90 days #90 t abs 01/01/22 tablet,extended release 24 hr amlodipine 10 mg tablet 10 mg PO DAILY #90 tabs 10/0 11/13 rosuvastatin 10 mg tablet 10 mg PO DAILY #90 tabs 2 04/15 triamterene 37.5 1 tab PO DAILY #90 tabs 030 11/14 mg-hydrochlorothiazide 25 mg tablet omeprazole 20 mg capsule,delayed 20 mg PO DAILY #90 ca ps 11/08/24 release lisinopril 5 mg tablet 5 mg PO DAILY #90 tabs 01/08 azithromycin 250 mg tablet See Rx Instructions PO .COM PLEX #6 01/25/25 tabs diazepam 5 mg tablet (Valium) 5 mg PO TID PRN muscle s pasm #10 02/22/25 tabs Allergies Allergy/AdvReac Type Severity Reaction Status Date / Time cephalexin (From KEFLEX) Allergy Unknown DIARRHEA Verified 02/23/25 20:30 gabapentin (From NEURONTIN) Allergy Unknown DIZZINESS- Verified 02/23/25 20:30 AFFECTED VISION Sulfa (Sulfonamide Allergy Unknown ITCH, Verified 02/23/25 20:30 Antibiotics) (SULFA itchiness (SULFONAMIDE ANTIBIOTICS)) Review of Systems Review of Systems: Yes all other systems are reviewed and are negative [facility] Past Medical History Medical History Asthma Hematuria UTI (urinary tract infection) GERD (gastroesophageal reflux disease) Urgency incontinence H/O urinary retention Migraines History of urinary retention Urgency of micturition Urge incontinence Subclavian artery stenosis Essential hypertension Surgical History History of colonoscopy (~11/14/18) History of surgery on right wrist History of left shoulder replacement History of left knee replacement History of right shoulder replacement History of tubal ligation History of tonsillectomy Family History Family History (Updated 01/24/25 @ 16:32 by Verna Graf MA) Father Heart disease Colon cancer Mother No problems noted. Social History Social History Housing: House Unable to assess alcohol history related to: Unknown Alcohol intake: current Alcohol intake frequency: a few times a week Alcohol type: wine Patient Tobacco Use Status: Never used Tobacco e-Cigarette/Vaping Use: Never Used Use of substances other than those prescribed or required for medical reasons: Unknown Advance Directives: Yes Advance Directives on File: Yes Advance Directives Date on File: 05/10/23 Do you have a plan to hurt others: No Plan service: No Current occupational status: retired Cognitive needs: No Hearing needs: Yes (b/l hearing aids) Vision needs: Yes (reading glasses) Physical Exam ED Vital Signs: Vital Signs - 24 hr 02/23/25 20:27 02/23/25 20:35 02/23/25 22:39 Temperature 97.8 F 97.6 F Pulse Rate 74 68 61 Respiratory Rate 17 16 Blood Pressure 120/66 121/55 L 126/49 L Pulse Oximetry 99 98 97 Oxygen Delivery Method Room Air Room Air Room Air BMI result Body Mass Index 28.7 Const Other: The patient is awake and alert with a normal mental status. She does not appear toxic. She looks mildly uncomfortable. HENMT Other: Some generalized tenderness the right side of the face and head. No facial swelling. The pharynx is unremarkable. Eyes General: appearance normal, both eyes and all related structures Neck Neck: Yes normal visual inspection and Yes full ROM Resp Effort & Inspection: normal respiratory effort Auscultation: clear to auscultation bilaterally Cardio Rate: regular rate Rhythm: regular rhythm Heart sounds: S1 normal heart sound present and S2 normal heart sound present GI Other: Abdomen is soft and nontender Skin Other: The skin is dry and unremarkable Neuro Other: The patient is awake and alert with a normal mental status. Her face is symmetrical. Pupils are round equal. Eye movements are normal. Speech is clear. She has normal strength and sensation in her extremities. Extrem Other: No peripheral edema. Good perfusion to the feet. Normal sensation in the legs. Course Course Course Narrative: This is an RME: Additional HPI, ROS, PE not included below will be deferred to primary provider. RME assessment and note performed by: Carin Byers PA-C This is a 31-[id number]-smp-female, HTN, HLD, migraines, arthritis, trigeminal neuralgia, who presents to the ER with complaints of severe right sided facial pain. Pt was seen here yesterday with similar symptoms, was discharged on valium which she has been taking without relief. Reports pain starts in the right side of her head into the right side of her face down her right arm. Took valium this afternoon without any relief. No CP, SOB. Plan: Labs, further Er eval needed Medications Administered Discontinued Medications Generic Name Dose Route Start Last Admin Trade Name Freq PRN Reason Stop Dose Admin Dexamethasone Sodium Phosphate 8 mg 02/23/25 22:18 02/23/25 22:24 Dexamethasone Sod Phosphate 4 Mg/Ml Vial IVPUSH 02/23/25 22:19 8 mg ONCE ONE Administration Droperidol 1.25 mg 02/23/25 20:59 02/23/25 21:35 Droperidol 5 Mg/2 Ml Vial IVPUSH 02/23/25 21:00 1.25 mg ONCE ONE Administration Sodium Chloride 1,000 mls @ 999 mls/hr 02/23/25 21:00 02/23/25 22:19 Ns IV 02/23/25 22:00 Infused .Q1H1M AUGUSTINA Infusion Ketorolac Tromethamine 15 mg 02/23/25 20:59 02/23/25 21:34 Ketorolac Tromethamine 15 Mg/Ml Vial IVPUSH 02/23/25 21:00 15 mg ONCE ONE Administration Medical Decision Making Medical Decision Making [facility] Narrative: The patient is a 69-year-old female who reports a history of trigeminal neuralgia that bothers her from time to time over the last 8 years. She presents with what she says is a syndrome typical but more severe than her usual trigeminal neuralgia. She was seen here yesterday and prescribed diphenhydramine that she was going to use in addition to her carbamazepine and tramadol. This was not very helpful however and she returns to the emergency room today because she is still very uncomfortable. No fever. She does not look toxic. My overall impression was that this seems to be an exacerbation of her chronic syndrome. She was given an IV and was given a dose of ketorolac and droperidol. She fell asleep and was snoring for awhile. I woke her easily. She said she was feeling better and felt comfortable going home with her . She was then given 8 mg of IV dexamethasone as well to help prevent any kind of rebound phenomenon. My hope is that she will be better at this point and can follow up with her neurologist in [place], Dr. Wade Oneal. Discharge Plan Discharge Clinical Impression: Trigeminal neuralgia of right side of face Patient Disposition: Home, Self-Care Instructions: Trigeminal Neuralgia (ED) Additional Instructions: Please rest tonight. My hope is that you wiill sleep tonight and feel significantly better in the m orning. Please continue your regular medications. Please contact Dr. Oneal on Wednesday to make an appointment to discuss this episode further. Also stay in touch with your regular doctor as needed. Return to the emergency room if significantly worse. Prescriptions: No Action amlodipine 10 mg tablet 10 mg PO DAILY Qty: 90 3RF rosuvastatin 10 mg tablet 10 mg PO DAILY Qty: 90 3RF triamterene-hydrochlorothiazid 37.5-25 mg tablet 1 tab PO DAILY Qty: 90 3RF lisinopril 5 mg tablet 5 mg PO DAILY Qty: 90 3RF azithromycin 250 mg tablet See Rx Instructions PO .COMPLEX Qty: 6 0RF Rx Instructions: take 500 mg today (day 1), then 250 mg for 4 days (days 2-5) PO diazepam [Valium] 5 mg tablet 5 mg PO TID PRN (Reason: muscle spasm) Qty: 10 0RF Rx Instructions: partial fill is okay nabumetone 500 mg tablet 500 mg PO BID tramadol 50 mg tablet 50 mg PO BID PRN (Reason: Pain) duloxetine [Cymbalta] 60 mg capsule,delayed release(DR/EC) 60 mg PO DAILY multivitamin Tablet 1 tab PO DAILY calcium carbonate [Calcium 500] 500 mg calcium (1,250 mg) tablet 500 mg PO DAILY divalproex 250 mg tablet extended release 24 hr 1,000 mg PO DAILY hyoscyamine sulfate 0.125 mg tablet 0.125 mg PO DAILY albuterol sulfate 90 mcg/actuation HFA aerosol inhaler 2 inh inhalation [id number] PRN (Reason: Shortness Of Breath Or Wheezing) fluticasone propion-salmeterol 250-50 mcg/dose blister with device 1 ea inhalation BID oxybutynin chloride 15 mg tablet extended release 24 hr 15 mg PO DAILY 90 Days Qty: 90 0RF omeprazole 20 mg capsule,delayed release(DR/EC) 20 mg PO DAILY Qty: 90 1RF Referrals: Tee Juarez MD [Physician, Neurology] Lucius Hannon MD [Primary Care Provider, Internal Medicine] Interventions: ED Discharge Assessment Last Done: 02/23/25 22:39 Discharge Date/Time: 02/23/25 22:39 Print Language: Arabic
[2025-02-23 20:35] VITALS: BP 121/55; PULSE 68; O2SAT 98
--- NOTE | 2025-02-23 22:16 | PC.NURSE ---
Pt resting quietly with eye closed. No acute distress noted.
[2025-02-23 22:39] VITALS: BP 126/49; PULSE 61; RESP 16; TEMP 36.4; O2SAT 97
== END 2025-02-23 22:39 | disposition home or self-care (01) ==
PROVIDERS: Emergency Provider Emergency Medicine; PCP Internal Medicine
DX: G50.0 Trigeminal neuralgia (principal); M54.2 Cervicalgia; M25.511 Pain in right shoulder; R51.9 Headache, unspecified; Z79.899 Other long term (current) drug therapy
CPT/HCPCS: 96361; 96374; 96375; 99284; 99285; J1100; J1790; J1885

== ENCOUNTER 2025-03-19 08:39 | Outpatient (AMB) | payer MEDICARE, OTHER, SELFPAY ==
--- NOTE | 2025-03-19 08:40 | MHC.PC.OV ---
Vital Signs 03/19/25 08:42 03/19/25 08:52 Height 5 ft 2 in Weight 143 lb BMI 26.2 BP 150/72 H Blood Pressure Location Rt brachial Position Sitting Respiration 17 Pulse 58 Pulse Source Pulse Oximeter Temp 96.6 F L Temp Source Temporal Artery Scan Pulse Oximetry (%) 97 Oxygen Delivery Method Room Air Intake Visit Reasons: Review Labs - see comments Application Specialist Required: No Accompanied by: Spouse Allergies cephalexin (From KEFLEX) Allergy (Unknown, Verified 03/19/25 09:03) DIARRHEA gabapentin (From NEURONTIN) Allergy (Unknown, Verified 03/19/25 09:03) DIZZINESS- AFFECTED VISION Sulfa (Sulfonamide Antibiotics) (SULFA (SULFONAMIDE ANTIBIOTICS)) Allergy (Unknown, Verified 03/19/25 09:03) ITCH, itchiness Medication List - Last Reconciled 03/19/25 by Lucius Hannon MD albuterol sulfate 90 mcg/actuation 2 inhalations inhalation [id number] PRN amlodipine 10 mg PO DAILY calcium carbonate (Calcium 500) 500 mg PO DAILY carbamazepine ER 100 mg PO TID PRN divalproex ER 1,000 mg PO DAILY duloxetine (Cymbalta) 60 mg PO DAILY fluticasone propion-salmeterol 250-50 mcg/dose 1 ea inhalation BID PRN hyoscyamine sulfate 0.125 mg PO DAILY lisinopril 5 mg PO DAILY multivitamin 1 tab PO DAILY nabumetone 500 mg PO BID omeprazole 20 mg PO DAILY PRN oxybutynin chloride ER 15 mg PO DAILY 90 days rosuvastatin 10 mg PO DAILY tramadol 50 mg PO BID PRN triamterene-hydrochlorothiazid 37.5-25 mg 1 tab PO DAILY Tobacco use date assessed: 01/24/25 Dental Screening Dental Screen Date: 01/24/25 COUNTS INCLUDE 234 BEDS AT [facility] Medical History Asthma Hematuria UTI (urinary tract infection) GERD (gastroesophageal reflux disease) Urgency incontinence H/O urinary retention Migraines History of urinary retention Urgency of micturition Urge incontinence Subclavian artery stenosis Essential hypertension Surgical History History of colonoscopy (~11/14/18) History of surgery on right wrist History of left shoulder replacement History of left knee replacement History of right shoulder replacement History of tubal ligation History of tonsillectomy Family History (Updated 01/24/25 @ 16:32 by Verna Graf MA) Father Heart disease Colon cancer Mother No problems noted. Social History Housing: House Unable to assess alcohol history related to: Unknown Alcohol intake: current Alcohol intake frequency: a few times a week Alcohol type: wine Patient Tobacco Use Status: Never used Tobacco e-Cigarette/Vaping Use: Never Used Advance Directives Date on File: 05/10/23 service: No Current occupational status: retired Cognitive needs: No Hearing needs: Yes (b/l hearing aids) Vision needs: Yes (reading glasses) Questionnaire Thrive Questionnaire Date Thrive assessed: 01/24/25 AUDIT C Alcohol Use Questionnaire (AUDIT-C) 1. How often do you have a drink containing alcohol?: Monthly or less 2. How many drinks containing alcohol do you have on a typical day when you are drinking?: 1 or 2 Total Score: 1 SOFYA-7 AMB Questionnaire SOFYA-7 Date SOFYA - 7 assessed: 01/24/25 Source: Developed by Drs. Jose J Albarran, Hazel Mittal, Toni Andino and colleagues, with an educational jigna from [employer]. Physical exam (Primary Care) Vital Signs: Last Vital Signs Temp 96.6 F L 03/19/25 08:52 Pulse 58 03/19/25 08:52 Resp 17 03/19/25 08:52 BP 150/72 H 03/19/25 08:52 Pulse Ox 97 03/19/25 08:52 Oxygen Delivery Method Room Air 03/19/25 08:52 BMI result Body Mass Index 26.2 Tobacco/Smoking Status: Tobacco use Status Tobacco use date assessed 01/24/25 03/19/25 08:53 Patient Tobacco Use Status Never used Tobacco 03/19/25 08:53 e-Cigarette/Vaping Use Never Used 03/19/25 08:53 Thrive Assessment: Date of Thrive Assessment Date Thrive assessed 01/24/25 03/19/25 08:53 Coding Level of Care Code Est Pt Level 4 (44180) Complex EM visit Add On G2211 Diagnoses Subclavian artery stenosis I77.1 Hyponatremia E87.1 Assessment & Plan Assessment & Plan (1) Subclavian artery stenosis: Code(s): I77.1 - Stricture of artery Category: Medical Plan: Condition is stable (2) Hyponatremia: Code(s): E87.1 - Hypo-osmolality and hyponatremia Category: Medical Plan: History of Present Illness - The patient is a 69-year-old female presenting with low sodium and chloride levels. - Hyponatremia and Hypochloremia: Blood work indicated low sodium and chloride levels, leading to a recommendation to consult primary care for medication management. - Trigeminal Neuralgia: The patient had an ER visit for trigeminal neuralgia, with recent improvement noted. - Right Ear Discomfort: The patient reports right ear discomfort, with no infection found upon examination. - Preventative Care: A mammogram has been ordered as it has not been done in a couple of years. Social History - Travel: The patient plans to travel to [place] in May. Review of Systems - Neurological: Reports improvement in trigeminal neuralgia with no recent head pain. - Ears: Reports right ear discomfort. Physical Exam General: Cooperative and healthy appearing Nutritional Appearance: Well nourished Orientation/consciousness: Patient oriented x3 Limitations: No limitations Head: Normal to inspection General: Appearance normal, both eyes and all related structures Neck: Normal visual inspection Chest: Normal palpation of entire chest wall Respiratory: N ormal respiratory effort Neurology: Patient oriented x3, reports no head pain on Wednesday, first day without pain. Results - Labs: Previous blood work showed low sodium and chloride levels. Plan 1. Hyponatremia - Repeat blood work to monitor sodium levels and adjust medication dosage accordingly. 2. Hypochloremia - Repeat blood work to monitor chloride levels. 3. Trigeminal Neuralgia - Continue monitoring symptoms and adjust treatment based on severity. 4. Right Ear Discomfort - Monitor symptoms as no infection was found during examination. 5. Preventative Care: Mammogram - Mammogram ordered for routine preventative care. Discussion Notes I discussed with the patient the importance of monitoring sodium and chloride levels due to their low values and the potential impact of medication on these levels. We agreed to repeat blood work and adjust medication dosage as needed. I also emphasized the importance of routine preventative care, including scheduling a mammogram. We reviewed the management of trigeminal neuralgia and the need to monitor symptoms. The patient was informed about the examination findings of the right ear, which showed no infection, and advised to monitor for any changes. Patient Instructions - Follow up with blood work to monitor sodium and chloride levels. - Adjust medication dosage as discussed to minimize side effects. - Schedule and complete a mammogram as part of routine care. - Monitor symptoms of trigeminal neuralgia and report any changes. - Observe for any changes in right ear discomfort and report if symptoms worsen. Orders: Orders MM screening mammo BI Today Z12.31 - Encounter for screening mammogram for malignant neoplasm of breast Medications: New nabumetone 500 mg PO BID 180 tabs 0RF Changed From omeprazole 20 mg PO DAILY 90 caps 1RF To omeprazole 20 mg PO DAILY PRN
[2025-03-19 08:42] VITALS: BMI 26.2
[2025-03-19 08:52] VITALS: BP 150/72; PULSE 58; RESP 17; TEMP 35.9; O2SAT 97
--- OUTSIDE RECORDS SUMMARY | 2025-03-19 09:02 | XMS_ITS | Patient Health Record ---
Author Organization [facility] Address [address] [place] [phone] Care Team Providers Care Assembler Engine Name Role Phone Christian (RETIRED) Demetrio RENDON Primary Care Provide Jose J Betancourt [phone] Allergies Allergen (clinical drug ingredient) Drug/Non Drug [...] W/U Status Risk Notes Problem Esophageal reflux (666474710) Esophageal reflux (K21.9) Active confirmed Problem 564062165 Encounter for screening for malignant neoplasm of colon (Z12.11) Active confirmed Problem 269149940 Irritable bowel syndrome with diarrhea (K58.0) Active confirmed Problem Dysphagia (79879299) Dysphagia (R13.10) Active confirmed Problem 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) Gastric polyps (K31.7) Active confirmed Problem Gastritis (0618444) Gastritis (K29.70) Active confirmed Problem 24476019 Incontinence of feces, unspecified fecal incontinence type (R15.9) Active confirmed Problem 496746369 Gastroesophageal reflux disease, unspecified whether esophagitis present (K21.9) Active confirmed Problem 75247612 Esophageal dysph agia (R13.19) Active confirmed Encounters Encounter Location Date Provider Diagnosis [facility] [address] [place] [phone] 04/27/2024 Jose J Santamaria [facility] [address] [place] [phone] 06/27/2024 Jose J Santamaria [facility] [address] [place] [phone] 07/24/2024 Jose J Santamaria Plan Of Treatment [...] OF [place] [address] [place] [address] [id number] SHAILESHNATALIEN Self - patient is the insured [facility] [address] [address] [place] [address] [phone] [id number] BRYANNA CASHLYN Self - patient is the [...] disease profile in January of 2015 Denies WI,DM,CVA,renal disease Urinary incontinence Negative colonoscopy in 2018, although t he prep was somewhat limited Surgical History Surgery Date(Month/Year) Both shoulder replacements 2016/2017 Both elbows Umbillical hernia Tubal ligation Left knee replacement 2017 Bilateral eyes
--- OUTSIDE RECORDS SUMMARY | 2025-03-19 09:02 | XMS_ITS | Encounter Summary ---
Author Organization [facility] Address [address] [place] [phone] Phone Care Team Providers Care Assistant Elementary Teacher Name Role Phone See Wan MD Unavailable Anay Bliss MD Unavailable David Patel DO Unavailable [phone] Demetrio Gonzales MD Primary Care Provider Lucius Hannon MD Primary Care Provid er Encounter Details Date Type Department Care Team (Late st Contact Info) Description 09/10/2022 Ancillary Orders [facility], X-Ray - [facility] [address] [place] [address] Yusuf Olmos, DO [address] [place] [address] [email or web address] Gluteal tendinitis, left hip Social History Tobacco Use Types Packs/Day Years Used Date Smoking Tobacco: Never Smokeless Tobacco: Never Alcohol Use Standard Drinks/Week Comments Yes 2 (1 standard drink = 0.6 oz pur e alcohol) weekends Comments No Sex and Gender Information Value Date Recorded Sex Assigned at Female 08/05/2018 10:39 PM EST Legal Sex Female 6:48 PM EST Gender Identity Female 08/05/2018 10:39 PM EST Sexual Orientation Straight 01/15/2023 7: 06 PM EDT documented as of this encounter Plan of Treatment Upcoming Encounters Date Type Department Care Team (Late st Contact Info) Description 03/21/2025 11:00 AM EDT Office Visit [facility] [address] [place] [id number] David Patel DO [address] [place] [address] [facility] [place] [address] 05/14/2025 8:00 AM EDT Office Visit [facility] [address] [place] [address] Anay Bliss MD [address] [facility], [address] [place] [address] [email or web address] documented as of this encounter Results * XR HIPS 2+ VW EA BILAT PLUS PELVIS (09/10/2022 8:11 AM EST) Anatomical Region Laterality Modality Hip, Pelvis Computed Radiogr aphy 09/10/2022 4:49 PM EST Impressions 09/10/2022 5:14 PM EST Moderate to severe left hip osteoarthritis. Moderate right hip osteoarthritis. Gluteal enthesopathy at the iliac crests and greater trochanters. Partially visualized lumbar spine degenerative change. Narrative 09/10/2022 5:14 PM EST XR HIPS 2+ VW EA BILAT PLUS PELVIS COMPARISON: XR HIP 2 VW LEFT PLUS PELVIS ; XR HIP (RIGHT) FINDINGS: PELVIS: Pelvic ring intact. No displaced fracture. Degenerative changes of the lower lumbar spine, sacroiliac joints, and pubic symphysis. Gluteal enthesopathy at the iliac crests. Constipation. RIGHT HIP: Moderate joint space narrowing with subchondral sclerosis and bony proliferative change. Mild gluteal enthesopathy at the greater trochanter. LEFT HIP: Moderate to severe hip joint space narrowing with subchondral sclerosis and marginal osteophytes. Mild to moderate gluteal enthesopathy at the greater trochanter. Procedure Note Kellen Siddiqui MD - 09/10/2022 XR HIPS 2+ VW EA BILAT PLUS PELVIS COMPARISON: XR HIP 2 VW LEFT PLUS PELVIS ; XR HIP (RIGHT) FINDINGS: PELVIS: Pelvic ring intact. No displaced fracture. Degenerative changes ofthe lower lumbar spine, sacroiliac joints, and pubic symphysis. Glutealenthesopathy at the iliac crests. Constipation. RIGHT HIP: Moderate joint space narrowing with subchondral sclerosis andbony proliferative change. Mild gluteal enthesopathy at the greatertrochanter. LEFT HIP: Moderate to severe hip joint space narrowing with subchondralsclerosis and marginal osteophytes. Mild to moderate gluteal enthesopathyat the greater trochanter. IMPRESSION: Moderate to severe left hip osteoarthritis. Moderate right hip osteoarthritis. Gluteal enthesopathy at the iliac crests and greater trochanters. Partially visualized lumbar spine degenerative change. us Yusuf Olmos DO IMG XR PELVIS Final Result documented in this encounter Visit Diagnoses Diagnosis Gluteal tendinitis, left hip Gluteal tendinitis, left hip documented in this encounter Care Teams Assistant Elementary Teacher Relationship Specialty Start Date End Date Demetrio Gonzales MD [address] [place] [phone] PCP - General 06/10/17 11/26/24 Lucius Hannon MD [address] [place] [phone] PCP - General Internal Medicine 11/27/24 See Wan MD [address] [place] [phone] Historical LMR Provider 06/09/17 Anay Bliss MD [address] [facility], [address] [place] [address] [email or web address] Historical LMR Provider 06/09/17 David Patel DO [address] [place] [address] [facility], [place] [address] [email or web address] Historical LMR Provider 06/09/17 documented as of this encounter Additional Source Comments The information contained in this document represents components of the legal health record. It is not the complete legal health record.[facility]
== END 2025-03-19 09:05 | disposition home or self-care (01) ==
LOC: HO.HMCHD 08:39
PROVIDERS: PCP Internal Medicine; Visit Provider Internal Medicine
DX: I77.1 Stricture of artery (principal); E87.1 Hypo-osmolality and hyponatremia

== ENCOUNTER → 2025-03-19 08:39 | Outpatient (BNVA) | payer MEDICARE, OTHER, SELFPAY | PROVIDERS: PCP Internal Medicine; Visit Provider Internal Medicine | DX: I77.1 Stricture of artery (principal); E87.1 Hypo-osmolality and hyponatremia | CPT/HCPCS: 99212 ==

== ENCOUNTER 2025-03-19 09:14 | Outpatient (REF) | payer MEDICARE, OTHER, SELFPAY ==
[2025-03-19 10:15] LABS: Hematocrit 39.2 % (37.0-47.0); Hemoglobin 13.5 g/dl (12.0-16.0); Mean Corpuscular HGB Conc 34.4 g/dl (31.0-35.0); Mean Corpuscular Hemoglobin 31.5 pg (27.0-33.0); Mean Corpuscular Volume 91.4 fL (80.0-98.0); NRBC Abs Auto 0.000 X10*3/uL (0.0-0.012); NRBC Pct Auto 0.0 /100WBC (0.0-0.2); Platelet Count 242 X10*3/uL (160-400); Red Blood Count 4.29 X10*6/uL (4.20-5.50); White Blood Count 4.1 X10*3/uL (4.8-10.8)
[2025-03-19 10:51] LABS: Alanine Aminotransferase 65 U/L (0-31); Albumin Level 4.4 g/dL (3.5-5.0); Alkaline Phosphatase 61 U/L (39-117); Anion Gap 13 (12-20); Aspartate Amino Transferase 49 U/L (5-31); Blood Urea Nitrogen 11 mg/dL (9-16); Calcium 9.6 mg/dL (8.4-10.2); Carbon Dioxide 30 mmol/L (22-29); Chloride 95 mmol/L (96-108); Cholesterol 221 mg/dL (<200); Estimated Glomerular Filt Rate > 60; HDL Cholesterol 63 mg/dL (>40); Potassium 4.6 mmol/L (3.3-5.1); Sodium 133 mmol/L (135-145); Total Protein 7.1 g/dL (6.5-8.0); Triglycerides 150 mg/dL (<150)
[2025-03-19 10:55] LABS: Thyroid Stimulating Hormone 1.89 uIU/mL (0.32-4.0)
== END 2025-03-19 09:15 | disposition home or self-care (01) ==
LOC: HO.10HDL 09:14
PROVIDERS: Visit Provider Internal Medicine
DX: I10 Essential (primary) hypertension (principal)
CPT/HCPCS: 36415; 80048; 80061; 80076; 84443; 85027

== ENCOUNTER 2025-05-07 11:18 | Outpatient (AMB) | payer MEDICARE, OTHER, SELFPAY ==
--- OUTSIDE RECORDS SUMMARY | 2021-05-31 13:10 | XMS_ITS | Encounter Summary ---
Author Organization [facility] Address [address] [place] [address] Phone Care Team Providers Care Minibus Driver Name Role Phone See Wan MD Unavailable Anay Bliss MD Unavailable Tammi Corral PA-C Unavailable [phone] David Patel DO Unavailable Demetrio Gonzales MD Unavailable Linette Echeverria PA-C Unavailable Cirilo Bernard MD Unavailable [phone] Akil Jenkins MD Unavailable [phone] Demetrio Gonzales MD Primary Care Provider Encounter Details Date Type Department Care Team (Late st Contact Info) Description 05/31/2021 1:10 PM EDT Hospital Encounter [facility] Urgent Care [address] [place] [address] Belia Quintero FNP [address] [place] [address] [email or web address] Social History Tobacco Use Types Packs/Day Years [...] 10:22 PM EDT Prashant Gutiérrez RN * [place] Suicide Severity Rating Scale (Screener/Recent Self-Report) Question [...] Description 05/14/2025 8:00 AM EDT Office Visit [facility] Rheumatology [address] [place] [address] [place] [address] Anay Bliss MD 22 [facility], [address] [place] [address] [email or web address] 06/20/2025 8:00 AM EDT Office Visit [facility] Orthopedics & Sports Medicine [address] [place] [address] Cameron Hayward PA-C [address] [place] [address] [place] [address] [email or web address] 07/16/2025 Procedure Pass OR Admitting Dept - Virtual Department [address] [place] [address] 07/16/2025 7:30 AM EST Hospital Encounter OR Admitting Dept - Virtual Department [address] [place] [address] David Patel DO 4 [facility] Orthopedics & Sports [facility], [place] [address] 07/16/2025 7:30 AM EST - 07/16/2025 9:55 AM EST Surgery OR Admitting Dept - Virtual Department [address] [place] [address] David Patel DO 4 [facility] Orthopedics & Sports [facility], [place] [address] ARTHROPLASTY ANATOMIC INVERSE SHOULDER 08/01/2025 8:00 AM EST Office Visit [facility] Orthopedics & Sports Medicine [address] [place] [address] Cameron Hayward PA-C [address] [place] [address] [place] [address] [email or web address] 08/29/2025 9:00 AM EST Office Visit [facility] Orthopedics & Sports Medicine [address] [place] [address] David Patel DO [address] [place] [address] Orthopedics & Sports [facility], [place] [address] Scheduled Procedures Name Priority Associated Diagnoses Date/Ti [...] IMPRESSION: No fracture or dislocation. 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 IMG XR UPPER EXTREMITY Ria l Result documented in this encounter Visit Diagnoses Not on filedocumented in this encounter Care Teams Minibus Driver Relationship Specialty Start Date End Date Demetrio Gonzales MD [address] [place] [address] [place] [address] PCP - General 06/10/17 11/26/24 See Wan MD [address] [place] [address] [email or web address] Historical LMR Provider 06/09/17 Anay Bliss MD [address] [place] [address], [facility] 203 [place] [address] [email or web address] Historical LMR Provider 06/09/17 Tammi Corral PA-C [address] [place] [address] Orthopedics Sports [facility], [place] [address] Historical LMR Provider 06/09/17 08/30/21 David Patel DO [address] [place] [address] [place] [address] [email or web address] Historical LMR Provider 06/09/17 Demetrio Gonzales MD [address] [place] [address] [place] [address] Historical LMR Provider 06/09/17 2 Linette Echeverria PA-C [address] [place] [address] Orthopedics Sports [facility], [place] [address] [email or web address] Historical LMR Provider 06/09/17 08/30/21 Cirilo Bernard MD [address] [place] [address], [facility] [address] [place] [address] Historical LMR Provider 06/09/17 08/30/21 Akil Jenkins MD [address] [place] [address] Historical LMR Provider 06/09/17 2 documented as of this encounter Additional Source Comments The information contained in this document represents components of the legal health record. It is not the complete legal health record.[facility]
--- OUTSIDE RECORDS SUMMARY | 2021-06-04 15:30 | XMS_ITS | Encounter Summary ---
Author Organization [facility] Address [address] [place] [address] Phone Care Team Providers Care Baseball Coach Name Role Phone See Wan MD Unavailable [phone] Anay Bliss MD Unavailable [phone] Tammi Corral PA-C Unavailable [phone] David Patel DO Unavailable [phone] Demetrio Gonzales MD Unavailable [phone] Linette Echeverria PA-C Unavailable Cirilo Bernard MD Unavailable [phone] kAil Jenkins MD Unavailable [phone] Demetrio Gonzales MD Primary Care Provider Encounter Details Date Type Department Care Team (Late st Contact Info) Description 06/04/2021 3:30 PM EDT Hospital Encounter [facility] [address] [place] [address] Ginny Pacheco PA 12 [place] [address] [email or web address] Social History Tobacco Use Types Packs/Day [...] 10:22 PM EDT Prashant Gutiérrez RN * [place] Suicide Severity Rating Scale (Screener/Recent Self-Report) Question Answer Date of Assessment Author 1. Wish to be (Past 1 Month) No 023 10:22 PM EDT Prashant Gutiérrez RN 2. Non-Specific Active Suici yola Thoughts (Past 1 Month) No 02/05/2023 10:22 PM EDT Max Gutiérrze, SHABANA 6. Suicidal Behavior (Lifetime) No 3 10:22 PM EDT Prashant Gutiérrez, SHABANA documented as of this encounter Plan of Treatment Upcoming Encounters Date Type Department Care Team (Late st Contact Info) Description 05/14/2025 8:00 AM EDT Office Visit [facility] Rheumatology [address] [place] [address] Anay Bliss MD [address] [place] [address], [address] [place] [address] [email or web address] 06/20/2025 8:00 AM EDT Office Visit [facility] Orthopedics & Sports Medicine [address] [place] [address] Cameron Hayward PA-C [address] [place] [address] [place] [address] [email or web address] 07/16/2025 Procedure Pass OR Admitting Dept - Virtual Department [address] [place] [address] 07/16/2025 7:30 AM EST Hospital Encounter OR Admitting Dept - Virtual Department [address] [place] [address] David Patel DO 4 [facility] Orthopedics & Sports [facility], [place] [address] 07/16/2025 7:30 AM EST - 07/16/2025 9:55 AM EST Surgery OR Admitting Dept - Virtual Department [address] [place] [address] David Patel DO 4 [facility] Orthopedics & Sports [facility], [place] [address] ARTHROPLASTY ANATOMIC INVERSE SHOULDER 08/01/2025 8:00 AM EST Office Visit [facility] Orthopedics & Sports Medicine [address] [place] [address] Cameron Hayward PA-C [address] [place] [address] [place] [address] [email or web address] 08/29/2025 9:00 AM EST Office Visit [facility] Orthopedics & Sports Medicine [address] [place] [address] David Patel DO 4 [facility], [place] [address] Scheduled Procedures Name Priority Associated Diagnoses Date/Ti [...] on filedocumented in this encounter Care Teams Baseball Coach Relationship Specialty Start Date End Date Demetrio Gonzales MD [address] [place] [address] [place] [address] PCP - General 06/10/17 11/26/24 See Wan MD [address] [place] [address] [email or web address] Historical LMR Provider 06/09/17 Anay Bliss MD 22 [facility], [facility] 203 [place] [address] Historical LMR Provider 06/09/17 Tammi Corral PA-C [address] [place] [address] Orthopedics Sports [facility], [place] [address] Historical LMR Provider 06/09/17 08/30/21 David Patel DO [address] [place] [address] [facility], [place] [address] [email or web address] Historical LMR Provider 06/09/17 Demetrio Gonzales MD [address] [place] [address] [place] [address] Historical LMR Provider 06/09/17 Linette Patel PA-C [address] [place] [address] Orthopedics Sports [facility], [place] [address] Historical LMR Provider 06/09/17 08/30/21 Cirilo Bernard MD [address] [place] [address], [facility] 102 [place] [address] Historical LMR Provider 06/09/17 08/30/21 Akil Jenkins MD [address] [place] [address] Historical LMR Provider 06/09/17 2 documented as of this encounter Additional Source Comments The information contained in this document represents components of the legal health record. It is not the complete legal health record.[facility]
--- OUTSIDE RECORDS SUMMARY | 2021-10-18 10:29 | XMS_ITS | Encounter Summary ---
Author Organization [facility] Address [address] [place] [address] Phone Care Team Providers Care Motor Vehicle Parts Interpreter Name Role Phone See Wan MD Unavailable [phone] Anay Bliss MD Unavailable [phone] David Patel DO Unavailable [phone] Demetrio Gonzales MD Primary Care Provider Encounter Details Date Type Department Care Team (Late st Contact Info) Description 10/18/2021 9:29 AM EST Hospital Encounter [facility] [address] [place] [address] [phone] Latoya Miller, BODY CORPORATE MANAGER [address] [place] [address] [email or web address] Social History Tobacco Use Types Packs/Day Years [...] 10:22 PM EDT Prashant Gutiérrez RN * [place] Suicide Severity Rating Scale (Screener/Recent Self-Report) Question Answer Date of Assessment Author 1. Wish to be (Past 1 Month) No 023 10:22 PM EDT Prashant Gutiérrez, SHABANA 2. Non-Specific Active Suici yola Thoughts (Past 1 Month) No 02/05/2023 10:22 PM EDT Max Gutiérrez RN 6. Suicidal Behavior (Lifetime) No 10:22 PM EDT Prashant Gutiérrez RN documented as of this encounter Plan of Treatment Upcoming Encounters Date Type Department Care Team (Late st Contact Info) Description 05/14/2025 8:00 AM EDT Office Visit [facility] Rheumatology [address] [place] [address] Anay Bliss MD [address] [place] [address], [address] [place] [address] [email or web address] 06/20/2025 8:00 AM EDT Office Visit [facility] Orthopedics & Sports Medicine [address] [place] [address] Cameron Hayward PA-C [address] [place] [address] [place] [address] [email or web address] 07/16/2025 Procedure Pass OR Admitting Dept - Virtual Department [address] [place] [address] 07/16/2025 7:30 AM EST Hospital Encounter OR Admitting Dept - Virtual Department [address] [place] [address] David Patel, DO [facility] [place] [place] [address] 07/16/2025 7:30 AM EST - 07/16/2025 9:55 AM EST Surgery OR Admitting Dept - Virtual Department [address] [place] [address] David Patel, DO 4 [facility] [place] [place] [address] ARTHROPLASTY ANATOMIC INVERSE SHOULDER 08/01/2025 8:00 AM EST Office Visit [facility] Orthopedics & Sports Medicine [address] [place] [address] Cameron Hayward PA-C [address] [place] [address] [place] [address] [email or web address] 08/29/2025 9:00 AM EST Office Visit [facility] Orthopedics & Sports Medicine [address] [place] [address] David Patel, DO [address] [place] [address] Orthopedics [facility] [place] [address] Scheduled Procedures Name Priority Associated Diagnoses Date/Ti me ARTHROPLASTY ANATOMIC INVERSE SHOULDER Instability of prosthetic shoulder joint, sequela 07/16/2025 7:30 AM EST documented as of this encounter Procedures Procedure Name Priority Date/Time Associated Diagnosis Comments XR RIBS 3 OR MORE VIEWS WITH PA CHEST (LEFT) STAT 10/18/2021 9:36 AM EST Rib pain documented in this encounter Results * XR RIBS 3 OR MORE VIEWS WITH PA CHEST (LEFT) (10/18/2021 9:36 AM EST) Anatomical Region Laterality Modality Chest Computed Radiogr aphy 10/18/2021 10:0 3 AM EST Impressions 10/18/2021 10:12 AM EST No displaced rib fracture. Narrative 10/18/2021 10:12 AM EST XR RIBS 3 OR MORE VIEWS WITH PA CHEST (LEFT) COMPARISON: 04/28/2019 FINDINGS: No displaced rib fracture. Multiple old healed left rib fractures. Bilateral shoulder arthroplasties. PA evaluation of the chest demonstrates no focal consolidation, pleural effusion, pulmonary edema, or pneumothorax. Cardiomediastinal silhouette is normal. Procedure Note Gail Sifuentes MD - 10/18/2021 XR RIBS 3 OR MORE VIEWS WITH PA CHEST (LEFT) COMPARISON: 04/28/2019 FINDINGS: No displaced rib fracture. Multiple old healed left rib fractures.Bilateral shoulder arthroplasties. PA evaluation of the chest demonstrates no focal consolidation, pleuraleffusion, pulmonary edema, or pneumothorax. Cardiomediastinal silhouetteis normal. IMPRESSION: No displaced rib fracture. Latoya Miller [facility] IMG XR CHEST Final R esult documented in this encounter Visit Diagnoses Not on filedocumented in this encounter Care Teams Motor Vehicle Parts Interpreter Relationship Specialty Start Date End Date Demetrio Gonzales MD [address] [place] [address] [place] [address] PCP - General 06/10/17 11/26/24 See Wan MD [address] [place] [address] [email or web address] Historical LMR Provider 06/09/17 Anay Bliss MD [address] [place] [address], [address] [place] [address] [email or web address] Historical LMR Provider 06/09/17 David Patel DO [address] [place] [address] Orthopedics & Sports Medicine, [place] [address] [email or web address] Historical LMR Provider 06/09/17 documented as of this encounter Additional Source Comments The information contained in this document represents components of the legal health record. It is not the complete legal health record.[facility]
--- OUTSIDE RECORDS SUMMARY | 2024-01-30 09:35 | XMS_ITS | Encounter Summary ---
Author Organization [facility] Address [address] [place] [address] [place] [address] Phone Care Team Providers Care Environmental Property Assessor Name Role Phone See Wan MD Unavailable [phone] Anay Bliss MD Unavailable [phone] David Patel DO Unavailable [phone] Demetrio Gonzales MD Primary Care Provider Encounter Details Date Type Department Care Team (Late st Contact Info) Description 01/30/2024 9:35 AM EDT Hospital Encounter [facility] [address] [place] [address] Maira Bolden CNP 12 [place] [address] [email or web address] Social History Tobacco Use Types Packs/Day Years [...] Description 05/14/2025 8:00 AM EDT Office Visit [facility] Rheumatology [address] [place] [address] Anay Bliss MD 22 [facility], [address] [place] [address] [email or web address] 06/20/2025 8:00 AM EDT Office Visit [facility] Orthopedics & Sports Medicine [address] [place] [address] Cameron Hayward PA-C [address] [place] [address] [place] [address] [email or web address] 07/16/2025 Procedure Pass OR Admitting Dept - Virtual Department [address] [place] [address] 07/16/2025 7:30 AM EST Hospital Encounter OR Admitting Dept - Virtual Department [address] [place] [address] David Patel, 4 [facility] Orth[facility] [place] [place] [address] 07/16/2025 7:30 AM EST - 07/16/2025 9:55 AM EST Surgery OR Admitting Dept - Virtual Department [address] [place] [address] David Patel, 4 [facility] [place] [address] ARTHROPLASTY ANATOMIC INVERSE SHOULDER 08/01/2025 8:00 AM EST Office Visit [facility] Orthopedics & Sports Medicine [address] [place] [address] Cameron Hayward PA-C [address] [place] [address] [place] [address] [email or web address] 08/29/2025 9:00 AM EST Office Visit [facility] Orthopedics & Sports Medicine [address] [place] [address] David Patel DO [address] [place] [address] Orthopedics & Sports Medicine, [facility] [place] [address] [email or web address] Scheduled Procedures Name Priority Associated Diagnoses Date/Ti [...] report originally createdby Geri Givens. Maira Bolden GARMENT TURNER IMG XR LOWER EXTREMITY Ria l Result documented in this encounter Visit Diagnoses Not on filedocumented in this encounter Care Teams Environmental Property Assessor Relationship Specialty Start Date End Date Demetrio Gonzales MD [address] [place] [address] [place] [address] PCP - General 06/10/17 11/26/24 See Wan MD [address] [place] [address] [email or web address] Historical LMR Provider 06/09/17 Anay Bliss MD [address] [place] [address], [facility] [address] [place] [address] [email or web address] Historical LMR Provider 06/09/17 David Patel DO [address] [place] [address] [facility] [place] [address] [email or web address] Historical LMR Provider 06/09/17 documented as of this encounter Additional Source Comments The information contained in this document represents components of the legal health record. It is not the complete legal health record.[facility]
--- NOTE | 2025-05-07 11:20 | MHC.PC.OV ---
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 Accompanied by: Self / Same As Patient Allergies cephalexin (From KEFLEX) Allergy (Unknown, Verified 05/07/25 11:20) DIARRHEA gabapentin (From NEURONTIN) Allergy (Unknown, Verified 05/07/25 11:20) DIZZINESS- AFFECTED VISION Sulfa (Sulfonamide Antibiotics) (SULFA (SULFONAMIDE ANTIBIOTICS)) Allergy (Unknown, Verified 05/07/25 11:20) ITCH, itchiness Tobacco use date assessed: 01/24/25 Fall risk assessment: No Falls in past year Last assessed Fall Risk: 05/07/25 Dental Screening Dental Screen Date: 05/07/25 Did you have a dental visit in the last 12 months?: Yes Did you have a dental problem in the last 6 months where you did not have access to dental care?: Yes Was dental information given to patient?: Patient has dentist HPI HPI Comments History of Present Illness Details The patient is a 69-year-old female presenting for a preoperative evaluation for planned left shoulder surgery. The patient reports a history of issues with her left shoulder, previously undergoing surgery in 2016. Recently, she has been experiencing pain and functional limitations in the left shoulder, which she describes as severe trauma when it becomes stuck, occasionally requiring assistance from her to reposition it. The shoulder condition has progressively worsened, leading to the need for a full reconstruction surgery, currently scheduled for July 13. The patient also has a history of high blood pressure, managed with amlodipine, lisinopril, and a combination of triamterene and hydrochlorothiazide, which are currently controlling her blood pressure well. She uses albuterol as needed for asthma, and fluticasone, though she noted infrequent need. She also has a history of trigeminal neuralgia, initially managed with carbamazepine, which she had discontinued in the middle of treatment until symptoms recurred in full force at the end of January. Rosuvastatin is also part of her medication regimen for cholesterol management. For pain management related to arthritis, she takes tramadol and duloxetine, both prescribed by Dr. Olmos. Oxybutynin is taken for bladder issues. Furthermore, she has been noted to have elevated liver enzymes, necessitating repeat testing prior to surgery. Medical History: - Essential hypertension - Asthma - Trigeminal neuralgia - Hypercholesterolemia - Elevated liver enzymes - Osteoarthritis Surgical History: - Left shoulder surgery (2017) - Left knee surgery (2017) Medications: - Amlodipine 10 mg for hypertension - Lisinopril 5 mg for hypertension - Triamterene/Hydrochlorothiazide 37.5/25 mg daily for hypertension - Albuterol inhaler as needed for asthma - Fluticasone as needed for asthma - Carbamazepine on hold initially, for trigeminal neuralgia - Rosuvastatin for hypercholesterolemia - Tramadol for arthritis-related pain - Oxybutynin for bladder dysfunction - Duloxetine (Cymbalta) for osteoarthritis-related pain Diagnostic Results: - Labs: Elevated liver enzymes, repeat testing requested Social: - The patient is able to climb stairs and perform daily activities independently, indicating good functional status. [facility] Medical History (Updated 05/07/25 @ 12:02 by Kam Bowie MD) Osteoarthritis Pre-op evaluation Elevated liver enzymes Asthma Hematuria UTI (urinary tract infection) GERD (gastroesophageal reflux disease) Urgency incontinence H/O urinary retention Migraines History of urinary retention Urgency of micturition Urge incontinence Subclavian artery stenosis Essential hypertension Surgical History History of colonoscopy (~11/14/18) History of surgery on right wrist History of left shoulder replacement History of left knee replacement History of right shoulder replacement History of tubal ligation History of tonsillectomy Family History (Updated 01/24/25 @ 16:32 by Verna Graf MA) Father Heart disease Colon cancer Mother No problems noted. Social History Housing: House Unable to assess alcohol history related to: Unknown Alcohol intake: current Alcohol intake frequency: a few times a week Alcohol type: wine Patient Tobacco Use Status: Never used Tobacco e-Cigarette/Vaping Use: Never Used Advance Directives Date on File: 05/10/23 service: No Current occupational status: retired Cognitive needs: No Hearing needs: Yes (b/l hearing aids) Vision needs: Yes (reading glasses) Questionnaire Thrive Questionnaire Date Thrive assessed: 01/24/25 AUDIT C Alcohol Use Questionnaire (AUDIT-C) 1. How often do you have a drink containing alcohol?: 2-4 times a month 2. How many drinks containing alcohol do you have on a typical day when you are drinking?: 1 or 2 3. How often do you have six or more drinks on one occasion?: Never Total Score: 2 SOFYA-7 AMB Questionnaire SOFYA-7 Date SOFYA - 7 assessed: 01/24/25 Source: Developed by Drs. Jose J Albarran, Hazel Mittal, Toni Andino and colleagues, with an educational jigna from [employer]. Review of Systems Const Details: - Musculoskeletal: Reports left shoulder pain and dysfunction - Cardiovascular: Denies chest pain; blood pressure well controlled - Respiratory: Uses albuterol as needed, reports no current respiratory symptoms - Neurological: Trigeminal neuralgia previously worsened but has been managed - Genitourinary: Reports bladder dysfunction, managed with medication All systems reviewed & are unremarkable except as reviewed in HPI and above Physical exam (Primary Care) Vital Signs: Last Vital Signs Temp 97.4 F 05/07/25 11:33 Pulse 74 05/07/25 11:33 Resp 17 05/07/25 11:33 BP 118/52 L 05/07/25 11:33 Pulse Ox 98 05/07/25 11:33 Oxygen Delivery Method Room Air 05/07/25 11:33 BMI result Body Mass Index 26.5 Tobacco/Smoking Status: Tobacco use Status Tobacco use date assessed 01/24/25 05/07/25 11:22 Patient Tobacco Use Status Never used Tobacco 05/07/25 11:22 Tobacco use type 05/07/25 11:37 e-Cigarette/Vaping Use Never Used 05/07/25 11:22 Thrive Assessment: Date of Thrive Assessment Date Thrive assessed 01/24/25 05/07/25 11:22 Const Other: General: Alert and oriented, Well nourished, No acute distress. Eye: Pupils are equal, round and reactive to light, Intact accommodation, Extraocular movements are intact, Normal conjunctiva, Vision unchanged. HENT: Normocephalic, Atraumatic, Tympanic membranes are clear, Normal hearing, Oral mucosa is moist, No pharyngeal erythema, Ear canals patent. Respiratory: Lungs CTA bilaterally, No wheeze, Respirations are non-labored. Cardiovascular: Regular rate, Regular rhythm, S1 auscultated, S2 auscultated, No murmur, Good pulses equal in all extremities, Normal peripheral perfusion, No edema. Gastrointestinal: Soft, Non-tender, Non-distended, Normal bowel sounds, No organomegaly. Musculoskeletal: Normal range of motion, Normal strength, No tenderness, No swelling, No deformity, Normal gait. Integumentary: Warm, Dry, [place], Intact. Neurologic: Alert, Oriented, Normal sensory, Normal motor function, No focal defects, Cranial Nerves II-XII are grossly intact, Normal deep tendon reflexes. Psychiatric: Cooperative, Appropriate mood & affect, Normal judgment. Office Procedures EKG 42418-[id number], Complete Coding Level of Care Code Est Pt Level 4 (53078) Complex EM visit Add On G2211 Diagnoses Essential hypertension I10 Urgency incontinence N39.41 Trigeminal neuralgia of right side of face G50.0 Pre-op evaluation Z01.818 Elevated liver enzymes R74.8 Primary osteoarthritis involving multiple joints M15.0 Osteoarthritis location: multiple joints Osteoarthritis type: primary CPT Codes EKG - CPT: 66653-[id number], Complete ([id number]) Assessment & Plan Assessment & Plan (1) Essential hypertension: Comment: - Blood pressure is well-controlled with current medication regimen. - Instructed to hold lisinopril the morning of the procedure to manage intraoperative blood pressure levels. Code(s): I10 - Essential (primary) hypertension Category: Medical (2) Urgency incontinence: Comment: - Managed with oxybutynin. Code(s): N39.41 - Urge incontinence Category: Medical (3) Trigeminal neuralgia of right side of face: Comment: - Symptoms well managed with carbamazepine & divalproex Code(s): G50.0 - Trigeminal neuralgia Category: Medical (4) Pre-op evaluation: Comment: This patient with hypertension (on triple therapy), trigeminal neuralgia (on carbamazepine and divalproex), and mild asymptomatic transaminitis (<60 U/L) is undergoing preoperative evaluation for left total shoulder arthroplasty (intermediate-risk procedure). No history of CAD, CHF, CVA, insulin-requiring diabetes, or advanced CKD. RCRI = 0, consistent with low perioperative cardiac risk (<1% MACE). Functional status is [document METs]. EKG has been reviewed and is without concerning abnormalities. Recommend continuation of antihypertensives (hold VILMA/ARB morning of surgery per anesthesia protocol), continuation of carbamazepine and valproate, and pre-op CBC/LFTs for medication monitoring. Overall, the patient is at low cardiac risk for surgery, with stable mild liver enzyme elevation. Proceed with surgery as clinically indicated. Code(s): Z01.818 - Encounter for other preprocedural examination Category: Medical (5) Elevated liver enzymes: Comment: - Mild elevation seen on last blood work and previously normal therefore will Repeat liver enzyme tests Code(s): R74.8 - Abnormal levels of other serum enzymes Category: Medical (6) Osteoarthritis: Comment: - Pain managed with tramadol and duloxetine. Code(s): M19.90 - Unspecified osteoarthritis, unspecified site Category: Medical Qualifiers: Osteoarthritis location: multiple joints Osteoarthritis type: primary Qualified Code(s): M15.0 - Primary generalized (osteo)arthritis Plan: Health Maintenance: - Discussion on maintaining well-controlled blood pressure for surgical safety. - Repeat liver enzyme testing to monitor elevated levels before surgery. Plan I discussed with the patient her current health status and the preoperative evaluation necessary for her pending left shoulder reconstruction surgery. Her current medication regimen is adequately managing her essential hypertension and asthma. I emphasized the importance of discontinuing lisinopril on the morning of surgery to ensure optimal control of intraoperative blood pressure. The EKG returned with low cardiac risk, confirming her eligibility for surgery pending anesthesiologist evaluation. Repeat testing of liver function is necessary due to previously elevated results. The patient?s ability to perform daily activities and her functional status are positive indicators for surgical recovery. Orders: Orders Comprehensive Met. Panel Today R74.8 - Abnormal levels of other serum enzymes, Z01.818 - Encounter for other preprocedural examination Patient Instructions: - Hold lisinopril on the morning of surgery. - Continue all other medications as prescribed. - Attend scheduled preoperative tests and liver function retesting. - Contact our office if any symptoms worsen or for any questions regarding surgery. - Continue engaging in daily activities to maintain functional status.
[2025-05-07 11:33] VITALS: BP 118/52; PULSE 74; RESP 17; TEMP 36.3; O2SAT 98; BMI 26.5
--- OUTSIDE RECORDS SUMMARY | 2025-05-07 15:21 | XMS_ITS | Encounter Summary ---
Author Organization [facility] Address [address] [place] [address] Phone Care Team Providers Care Merchandise Flow Team Member Name Role Phone See Wan MD Unavailable [phone] Anay Bliss MD Unavailable Tammi Corral PA-C Unavailable [phone] David Patel DO Unavailable [phone] Demetrio Gonzales MD Unavailable [phone] Linette Echeverria PA-C Unavailable Cirilo Bernard MD Unavailable Akil Jenkins MD Unavailable [phone] Demetrio Gonzales MD Primary Care Provider Lucius Hannon MD Primary Care Provid er Encounter Details Date Type Department Care Team (Latest Contact Info) Description 02/13/2019 Transcribe Orders [facility] [address] [place] [address] Tee Oneal MD [address] [place] [address], [address] [place] [address] [email or web address] Numbness (Primary Dx) Social History Tobacco Use Types Packs/Day Years [...] 05/14/2025 8:00 AM EDT Office Visit [facility] Rheumatology [address] [place] [address] Anay Bliss MD [address] [facility], [address] [place] [address] [email or web address] 06/20/2025 8:00 AM EDT Office Visit [facility] Orthopedics & Sports Medicine [address] [place] [address] Cameron Hayward PA-C [address] [place] [address] [place] [address] [email or web address] 07/16/2025 Procedure Pass OR Admitting Dept - Virtual Department [address] [place] [address] 07/16/2025 7:30 AM EST Hospital Encounter [place] Admitting Dept - Virtual Department [address] [place] [address] David Patel DO [address] [place] [address] Orthopedics & Sports Medicine, [place] [address] 07/16/2025 7:30 AM EST - 07/16/2025 9:55 AM EST Surgery OR Admitting Dept - Virtual Department [address] [place] [address] David Patel DO 4 [facility] Orthopedics & Sports Medicine, [place] [address] ARTHROPLASTY ANATOMIC INVERSE SHOULDER 08/01/2025 8:00 AM EST Office Visit [facility] Orthopedics & Sports Medicine [address] [place] [address] Cameron Hayward PA-C [address] [place] [address] [place] [address] [email or web address] 08/29/2025 9:00 AM EST Office Visit [facility] Orthopedics & Sports Medicine [address] [place] [address] [id number] David Patel DO [address] [place] [address] [facility] [place] [address] Scheduled Procedures Name Priority Associated Diagnoses Date/Ti me ARTHROPLASTY ANATOMIC INVERSE SHOULDER Instability of prosthetic shoulder joint, sequela 07/16/2025 7:30 AM EST documented as of this encounter Results * (ABNORMAL) Glucose (02/13/2019 8:42 AM EDT) GLUCOSE 111(H) 70 - 99 mg/dL [facility] Blood 02/13/2019 8:42 AM EDT 02/13/2019 9:20 AM EDT us Tee Oneal MD LAB BLOOD ORDERABLES Final R esult [facility] [address] [place] [address] documented in this encounter Visit Diagnoses Diagnosis Numbness- Primary Disturbance of skin sensation Instability of prosthetic shoulder joint, sequela documented in this encounter Care Teams Merchandise Flow Team Member Relationship Specialty Start Date End Date Demetrio Gonzales MD [address] [place] [address] [place] [address] PCP - General 06/10/17 11/26/24 Lucius Hannon MD [address] [place] [address] PCP - General Internal Medicine 11/27/24 See Wan MD [address] [place] [address] [email or web address] Historical LMR Provider 06/09/17 Anay Bliss MD [address] [place] [address], [address] [place] [address] Historical LMR Provider 06/09/17 Tammi Corral PA-C [address] [place] [address] Orthopedics [facility], [place] [address] Historical LMR Provider 06/09/17 08/30/21 David Patel DO [address] [place] [address] Orthoped[facility], [place] [address] Historical LMR Provider 06/09/17 Demetrio Gonzales MD [address] [place] [address] Historical LMR Provider 06/09/17 2 Linette Echeverria PA-C [address] [place] [address] Orthopedics [facility], [place] [address] Historical LMR Provider 06/09/17 08/30/21 Cirilo Bernard MD [address] [place] [address] [email or web address] Historical LMR Provider 06/09/17 08/30/21 Akil Jenkins MD [address] [place] [address] Historical LMR Provider 06/09/17 2 documented as of this encounter Additional Source Comments The information contained in this document represents components of the legal health record. It is not the complete legal health record.[facility]
--- OUTSIDE RECORDS SUMMARY | 2025-05-07 15:21 | XMS_ITS | Encounter Summary ---
Author Organization [facility] Address [address] [place] [address] [place] [address] Phone Care Team Providers Care Video Library Assistant Name Role Phone See Wan MD Unavailable [phone] Anay Bliss MD Unavailable [phone] David Patel DO Unavailable [phone] Demetrio Gonzales MD Primary Care Provider Lucius Hannon MD Primary Care Provid er Encounter Details Date Type Department Care Team (Late st Contact Info) Description 02/05/2023 Procedure Pass OR Admitting Dept - Virtual Department [address] [place] [address] Social History Tobacco Use Types Packs/Day Years [...] 10:22 PM EDT Prashant Gutiérrez RN * [place] Suicide Severity Rating Scale (Screener/Recent Self-Report) Question [...] 05/14/2025 8:00 AM EDT Office Visit [facility] Rheumatology [address] [place] [address] Anay Bliss MD [address] [place] [address], [address] [place] [address] [email or web address] 06/20/2025 8:00 AM EDT Office Visit [facility] Orthopedics & Sports Medicine [address] [place] [address] Cameron Hayward PA-C [address] [place] [address] [place] [address] [email or web address] 07/16/2025 Procedure Pass OR Admitting Dept - Virtual Department [address] [place] [address] 07/16/2025 7:30 AM EST Hospital Encounter OR Admitting Dept - Virtual Department [address] [place] [address] David Patel DO [address] [place] [address] Orthopedics & Sports Medicine, [place] [address] 07/16/2025 7:30 AM EST - 07/16/2025 9:55 AM EST Surgery OR Admitting Dept - Virtual Department [address] [place] [address] David Patel DO [address] [place] [address] Orthopedics & Sports [facility], [place] [address] ARTHROPLASTY ANATOMIC INVERSE SHOULDER 08/01/2025 8:00 AM EST Office Visit [facility] Orthopedics & Sports Medicine [address] [place] [address] Cameron Hayward PA-C [address] [place] [address] [place] [address] [email or web address] 08/29/2025 9:00 AM EST Office Visit [facility] Orthopedics & Sports Medicine [address] [place] [address] David Patel DO [address] [place] [address] Orthopedics Sports [facility], [place] [address] Scheduled Procedures Name Priority Associated Diagnoses Date/Ti me ARTHROPLASTY ANATOMIC INVERSE SHOULDER Instability of prosthetic shoulder joint, sequela 07/16/2025 7:30 AM EST documented as of this encounter Visit Diagnoses Not on filedocumented in this encounter Care Teams Video Library Assistant Relationship Specialty Start Date End Date Demetrio Gonzales MD [address] [place] [address] [place] [address] PCP - General 06/10/17 11/26/24 Lucius Hannon MD [address] [place] [address] [place] [address] PCP - General Internal Medicine 11/27/24 See Wan MD [address] [place] [address] [email or web address] Historical LMR Provider 06/09/17 Anay Bliss MD [address] [place] [address] [address] [place] [address] [email or web address] Historical LMR Provider 06/09/17 David Patel DO [address] [place] [address] Orthopedics & Sports Medicine, [place] [address] Historical LMR Provider 06/09/17 documented as of this encounter Additional Source Comments The information contained in this document represents components of the legal health record. It is not the complete legal health record.[facility]
--- OUTSIDE RECORDS SUMMARY | 2025-05-07 15:21 | XMS_ITS | Patient Health Record ---
Author Organization [facility] Address [address] [place] [address] Care Team Providers Care Group Program Manager Name Role Phone Christian (RETIRED) Demetrio RENDON Primary Care Provide Jose J Betancourt [phone] Allergies Allergen (clinical drug ingredient) Drug/Non Drug [...] W/U Status Risk Notes Problem Esophageal reflux (483217166) Esophageal reflux (K21.9) Active confirmed Problem [id number] Encounter for screening for malignant neoplasm of colon (Z12.11) Active confirmed Problem 458842518 Irritable bowel syndrome with diarrhea (K58.0) Active confirmed Problem Dysphagia (02421388) Dysphagia (R13.10) Active confirmed Problem 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) Gastric polyps (K31.7) Active confirmed Problem Gastritis (4309036) Gastritis (K29.70) Active confirmed Problem 60329573 Incontinence of feces, unspecified fecal incontinence type (R15.9) Active confirmed Problem 363720202 Gastroesophageal reflux disease, unspecified whether esophagitis present (K21.9) Active confirmed Problem 56156089 Esophageal dysph agia (R13.19) Active confirmed Encounters Encounter Location Date Provider Diagnosis [facility] [address] [place] [phone] 06/27/2024 Jose J Santamaria [facility] [address] [place] [phone] 07/24/2024 Jose J Santamaria Plan Of Treatment [...] OF WENDIE [address] [place] [id number] CASHBRYANNALAURO Self - patient is the insured CALLIE [address] [address] [place] [address] [id number] LAURO CASH Self - patient is the insured Medical (General) History Medical History History ICD Code Colonoscopy 07-08-2009 and 006--neg. for polyps, neg for microscopic colitis--she has had previous colonoscopies with Dr. Hearn as well Asthma Hypertension Migraines--on Depakote Hyperlipidemia Leg and back pain--on Cymbalta and Morph ine Irritable bowel syndrome wit h diarrhea--she had a negative celiac disease profile in January of 2015 Denies ME,DM,CVA,renal disease Urinary incontinence Negative colonoscopy in 2019, although t he prep was somewhat limited Surgical History Surgery Date(Month/Year) Both shoulder replacements 2016/2017 Both elbows Umbillical hernia Tubal ligation Left knee replacement 2017 Bilateral eyes
--- OUTSIDE RECORDS SUMMARY | 2025-05-07 15:21 | XMS_ITS | Encounter Summary ---
Author Organization [facility] Address [address] [place] [address] Phone Care Team Providers Care Regulatory Affairs Portfolio Leader Name Role Phone See Wan MD Unavailable Anay Bliss MD Unavailable Tammi Corral PA-C Unavailable [phone] David Patel DO Unavailable [phone] Demetrio Gonzales MD Unavailable Linette Echeverria PA-C Unavailable [phone] Cirilo Bernard MD Unavailable [phone] Akil Jenkins MD Unavailable [phone] Demetrio Gonzales MD Primary Care Provider Lucius Hannon MD Primary Care Provid er Encounter Details Date Type Department Care Team (Late st Contact Info) Description 01/29/2021 Procedure Pass [facility], Ct Scan - [address] [id number] Social History Tobacco Use Types Packs/Day Years [...] Date of Assessment Author No Risk Indicated 01/29/2021 8:31 AM EDT Latasha Quiroga RN * [place] Suicide Severity Rating Scale (Screener/Recent Self-Report) Question Answer Date of Assessment Author 1. Wish to be (Past 1 Month) No 01/29/2021 8:31 AM EDT Rell Ortez RN 2. Non-Specific Active Suicidal Thoughts (Past 1 Month) No 01/29/2021 8:31 AM EDT Rell Ortez RN documented as of this encounter Plan of Treatment Upcoming Encounters Date Type Department Care Team (Late st Contact Info) Description 05/14/2025 8:00 AM EDT Office Visit [facility] Rheumatology [address] [place] [address] Anay Bliss MD [address] [place] [address], [address] [place] [address] [email or web address] 06/20/2025 8:00 AM EDT Office Visit [facility] Orthopedics & Sports Medicine [address] [place] [address] Cameron Hayward PA-C [address] [place] [address] [place] [address] [email or web address] 07/16/2025 Procedure Pass OR Admitting Dept - Virtual Department [address] [place] [address] 07/16/2025 7:30 AM EST Hospital Encounter OR Admitting Dept - Virtual Department [address] [place] [address] David Patel DO [address] [place] [address] Orthopedics & Sports Medicine, [place] [address] 07/16/2025 7:30 AM EST - 07/16/2025 9:55 AM EST Surgery OR Admitting Dept - [facility] Department [address] [place] [address] David Patel DO [address] [place] [address] Orthopedics & Sports [facility], [place], [place] [id number] ARTHROPLASTY ANATOMIC INVERSE SHOULDER 08/01/2025 8:00 AM EST Office Visit [facility] Orthopedics & Sports Medicine [address] [place] [address] Cameron Hayward PA-C [address] [place] [address] [place] [address] [email or web address] 08/29/2025 9:00 AM EST Office Visit [facility] Orthopedics & Sports Medicine [address] [place] [address] David Patel DO [address] [place] [address] Orthopedics & Sports [facility], [place] [address] Scheduled Procedures Name Priority Associated Diagnoses Date/Ti me ARTHROPLASTY ANATOMIC INVERSE SHOULDER Instability of prosthetic shoulder joint, sequela 07/16/2025 7:30 AM EST documented as of this encounter Visit Diagnoses Not on filedocumented in this encounter Care Teams Regulatory Affairs Portfolio Leader Relationship Specialty Start Date End Date Demetrio Gonzales MD [address] [place] [address] [place] [address] PCP - General 06/10/17 11/26/24 Lucius Hannon MD [address] [place] [address] [place] [address] PCP - General Internal Medicine 11/27/24 See Wan MD [address] [place] [address] [email or web address] Historical LMR Provider 06/09/17 Anay Bliss MD [address] [place] [address], [address] [place] [address] Historical LMR Provider 06/09/17 Tammi Corral PA-C [address] [place] [address] Orthopedics Sports [facility], [place] [address] Historical LMR Provider 06/09/17 08/30/21 David Patel DO [address] [place] [address] Orthopedics Sports [facility], [place] [address] Historical LMR Provider 06/09/17 Demetrio Gonzales MD [address] [place] [address] [place] [address] Historical LMR Provider 06/09/17 Linette Patel PA-C [address] [place] [address] Orthopedics Sports [facility], [place] [address] Historical LMR Provider 06/09/17 08/30/21 Cirilo Bernard MD [address] [place] [address], [address] [place] [address] Historical LMR Provider 06/09/17 08/30/21 Akil Jenkins MD [address] [place] [address] Historical LMR Provider 06/09/17 2 documented as of this encounter Additional Source Comments The information contained in this document represents components of the legal health record. It is not the complete legal health record.[facility]
--- OUTSIDE RECORDS SUMMARY | 2025-05-07 15:21 | XMS_ITS | Encounter Summary ---
Author Organization [facility] Address [address] [place] [address] Phone Care Team Providers Care Nuclear Technician Name Role Phone See Wan MD Unavailable Anay Bliss MD Unavailable [phone] David Patel DO Unavailable [phone] Demetrio Gonzales MD Primary Care Provider Lucius Hannon MD Primary Care Provid er Encounter Details Date Type Department Care Team (Late st Contact Info) Description 09/10/2022 Ancillary Orders [facility], X-Ray - [address] [address] Yusuf Olmos, DO [address] [place] [address] [email or web address] Gluteal tendinitis, left hip Social History Tobacco [...] 05/14/2025 8:00 AM EDT Office Visit [facility] Rheumatology [address] [place] [address] Anay Bliss MD 22 [facility], [address] [place] [address] [email or web address] 06/20/2025 8:00 AM EDT Office Visit [facility] Orthopedics & Sports Medicine [address] [place] [address] Cameron Hayward PA-C [address] [place] [address] [place] [address] [email or web address] 07/16/2025 Procedure Pass OR Admitting Dept - Virtual Department [address] [place] [address] 07/16/2025 7:30 AM EST Hospital Encounter OR Admitting Dept - Virtual Department [address] [place] [address] David Paetl DO 4 [facility] Orthopedics & Sports [facility], [place] [address] 07/16/2025 7:30 AM EST - 07/16/2025 9:55 AM EST Surgery OR Admitting Dept - Virtual Department [address] [place] [address] David Patel DO 4 [facility] Orthopedics & Sports [facility], [place] [address] ARTHROPLASTY ANATOMIC INVERSE SHOULDER 08/01/2025 8:00 AM EST Office Visit [facility] Orthopedics & Sports Medicine [address] [place] [address] Cameron Hayward PA-C [address] [place] [address] [place] [address] [email or web address] 08/29/2025 9:00 AM EST Office Visit [facility] Orthopedics & Sports Medicine [address] [place] [address] David Patel DO [address] [place] [address] Orthopedics & Sports Medicine, [facility] [place] [address] Scheduled Procedures Name Priority Associated Diagnoses Date/Ti [...] tendinitis, left hip Gluteal tendinitis, left hip Instability of prosthetic shoulder joint, sequela documented in this encounter Care Teams Nuclear Technician Relationship Specialty Start Date End Date Demetrio Gonzales MD [address] [place] [address] PCP - General 06/10/17 11/26/24 Lucius Hannon MD [address] [place] [address] PCP - General Internal Medicine 11/27/24 See Wan MD [address] [place] [address] [email or web address] Historical LMR Provider 06/09/17 Anay Bliss MD [address] [place] [address], [address] [place] [address] Historical LMR Provider 06/09/17 David Patel DO [address] [place] [address] Orthopedics & Sports Medicine, [place] [address] [email or web address] Historical LMR Provider 06/09/17 documented as of this encounter Additional Source Comments The information contained in this document represents components of the legal health record. It is not the complete legal health record.[facility]
--- OUTSIDE RECORDS SUMMARY | 2025-05-07 15:21 | XMS_ITS | Encounter Summary ---
Author Organization [facility] Address [address] [place] [address] [place] [address] Phone Care Team Providers Care Healthcare Facility Administrator Name Role Phone See Wan MD Unavailable [phone] Anay Bliss MD Unavailable [phone] David Patel DO Unavailable [phone] Demetrio Gonzales MD Primary Care Provider Lucius Hannon MD Primary Care Provid er Encounter Details Date Type Department Care Team (Late st Contact Info) Description 02/05/2023 Procedure Pass [facility], Ct Scan - [address] [id number] Social History Tobacco Use Types Packs/Day Years [...] 10:22 PM EDT Prashant Gutiérrez RN * [place] Suicide Severity Rating Scale (Screener/Recent Self-Report) Question [...] Description 05/14/2025 8:00 AM EDT Office Visit [facility] Rheumatology [address] [place] [address] Anay Bliss MD [address] [place] [address], [address] [place] [address] [email or web address] 06/20/2025 8:00 AM EDT Office Visit [facility] Orthopedics & Sports Medicine [address] [place] [address] Cameron Hayward PA-C [address] [place] [address] [place] [address] [email or web address] 07/16/2025 Procedure Pass OR Admitting Dept - Virtual Department [address] [place] [address] 07/16/2025 7:30 AM EST Hospital Encounter OR Admitting Dept - Virtual Department [address] [place] [address] David Patel DO [address] [place] [address] Orthopedics & Sports Medicine, [place] [address] 07/16/2025 7:30 AM EST - 07/16/2025 9:55 AM EST Surgery OR Admitting Dept - [facility] Department [address] [place] [address] David Patel DO [address] [place] [address] Orthopedics & Sports [facility], [place] [address] ARTHROPLASTY ANATOMIC INVERSE SHOULDER 08/01/2025 8:00 AM EST Office Visit [facility] Orthopedics & Sports Medicine [address] [place] [address] Cameron Hayward PA-C [address] [place] [address] [place] [address] [email or web address] 08/29/2025 9:00 AM EST Office Visit [facility] Orthopedics & Sports Medicine [address] [place] [address] David Patel DO [address] [place] [address] Orthopedics & Sports [facility], [place] [address] Scheduled Procedures Name Priority Associated Diagnoses Date/Ti me ARTHROPLASTY ANATOMIC INVERSE SHOULDER Instability of prosthetic shoulder joint, sequela 07/16/2025 7:30 AM EST documented as of this encounter Visit Diagnoses Not on filedocumented in this encounter Care Teams Healthcare Facility Administrator Relationship Specialty Start Date End Date Demetrio Gonzales MD [address] [place] [address] [address] [place] [address] PCP - General 06/10/17 11/26/24 Lucius Hannon MD [address] [place] [address] [place] [address] PCP - General Internal Medicine 11/27/24 See Wan MD [address] [place] [address] [email or web address] Historical LMR Provider 06/09/17 Anay Bliss MD [address] [place] [address] 203 [place] [address] [email or web address] Historical LMR Provider 06/09/17 David Patel DO [address] [place] [address] Orthopedics & Sports Medicine, [place] [address] Historical LMR Provider 06/09/17 documented as of this encounter Additional Source Comments The information contained in this document represents components of the legal health record. It is not the complete legal health record.[facility]
--- OUTSIDE RECORDS SUMMARY | 2025-05-07 15:21 | XMS_ITS | Encounter Summary ---
Author Organization [facility] Address [address] [place] [address] Phone Care Team Providers Care Electrician Assistant Name Role Phone See Wan MD Unavailable Anay Bliss MD Unavailable Tammi Corral PA-C Unavailable [phone] David Patel DO Unavailable Demetrio Gonzales MD Unavailable [phone] Linette Echeverria PA-C Unavailable Cirilo Bernard MD Unavailable [phone] Akil Jenkins MD Unavailable [phone] Demetrio Gonzales MD Primary Care Provider Lucius Hannon MD Primary Care Provid er Encounter Details Date Type Department Care Team (Late st Contact Info) Description 01/29/2021 Procedure Pass [facility], Ct Scan - [address] [phone] Social History Tobacco Use Types Packs/Day Years [...] 8:31 AM EDT Latasha Quiroga RN * [place] Suicide Severity Rating Scale (Screener/Recent Self-Report) Question [...] Description 05/14/2025 8:00 AM EDT Office Visit [facility] Rheumatology [address] [place] [address] Anay Bliss MD [address] [place] [address], [address] [place] [address] [email or web address] 06/20/2025 8:00 AM EDT Office Visit [facility] Orthopedics & Sports Medicine [address] [place] [address] Cameron Hayward PA-C [address] [place] [address] [place] [address] [email or web address] 07/16/2025 Procedure Pass OR Admitting Dept - Virtual Department [address] [place] [address] 07/16/2025 7:30 AM EST Hospital Encounter OR Admitting Dept - Virtual Department [address] [place] [address] David Patel DO [address] [place] [address] Orthopedics & Sports Medicine, [place] [address] 07/16/2025 7:30 AM EST - 07/16/2025 9:55 AM EST Surgery OR Admitting Dept - [facility] Department [address] [place] [address] David Patel DO [address] [place] [address] Orthopedics & Sports [facility], [place], [place] 9328[address] ARTHROPLASTY ANATOMIC INVERSE SHOULDER 08/01/2025 8:00 AM EST Office Visit [facility] Orthopedics & Sports Medicine [address] [place] [address] Cameron Hayward PA-C [address] [place] [address] [place] [address] [email or web address] 08/29/2025 9:00 AM EST Office Visit [facility] Orthopedics & Sports Medicine [address] [place] [address] David Patel DO [address] [place] [address] Orthopedics & Sports [facility], [place] [address] Scheduled Procedures Name Priority Associated Diagnoses Date/Ti me ARTHROPLASTY ANATOMIC INVERSE SHOULDER Instability of prosthetic shoulder joint, sequela 07/16/2025 7:30 AM EST documented as of this encounter Visit Diagnoses Not on filedocumented in this encounter Care Teams Electrician Assistant Relationship Specialty Start Date End Date Demetrio Gonzales MD [address] [place] [address] [place] [address] PCP - General 06/10/17 11/26/24 Lucius Hannon MD [address] [place] [address] [place] [address] PCP - General Internal Medicine 11/27/24 See Wan MD [address] [place] [address] [email or web address] Historical LMR Provider 06/09/17 Anay Bliss MD [address] [place] [address], [address] [place] [address] Historical LMR Provider 06/09/17 Tammi Corral PA-C [address] [place] [address] Orthopedics Sports [facility], [place] [address] Historical LMR Provider 06/09/17 08/30/21 David Patel DO [address] [place] [address] Orthopedics Sports [facility], [place] [address] Historical LMR Provider 06/09/17 Demetrio Gonzales MD [address] [place] [address] [place] [address] Historical LMR Provider 06/09/17 Linette Patel PA-C [address] [place] [address] Orthopedics Sports [facility], [place] [address] Historical LMR Provider 06/09/17 08/30/21 Cirilo Bernard MD [address] [place] [address], [address] [place] [address] Historical LMR Provider 06/09/17 08/30/21 Akil Jenkins MD [address] [place] [address] Historical LMR Provider 06/09/17 2 documented as of this encounter Additional Source Comments The information contained in this document represents components of the legal health record. It is not the complete legal health record.[facility]
--- OUTSIDE RECORDS SUMMARY | 2025-05-07 15:22 | XMS_ITS | Encounter Summary ---
Author Organization [facility] Address [address] [place] [address] [place] [address] Phone Care Team Providers Care Wood Heel Fitter Machine Name Role Phone See Wan MD Unavailable Anay Bliss MD Unavailable [phone] Tammi Corral PA-C Unavailable [phone] David Patel DO Unavailable Demetrio Gonzales MD Unavailable [phone] Linette Echeverria PA-C Unavailable [phone] Cirilo Bernard MD Unavailable Akil Jenkins MD Unavailable [phone] Demetrio Gonzales MD Primary Care Provider Lucius Hannon MD Primary Care Provid er Encounter Details Date Type Department Care Team (Late st Contact Info) Description 06/22/2018 Ancillary Orders [facility] [address] [place] [address] Suad Hardy MD 22 [facility], [address] [place] [address] [email or web address] Breast screening Social History Tobacco Use Types Packs/Day Years [...] Description 05/14/2025 8:00 AM EDT Office Visit [facility] Rheumatology [address] [place] [address] [place] [address] Anay Bliss MD [address] [place] [address], [address] [place] [address] [email or web address] 06/20/2025 8:00 AM EDT Office Visit [facility] Orthopedics & Sports Medicine [address] [place] [address] Cameron Hayward PA-C [address] [place] [address] [place] [address] [email or web address] 07/16/2025 Procedure Pass OR Admitting Dept - Virtual Department [address] [place] [address] 07/16/2025 7:30 AM EST Hospital Encounter OR Admitting Dept - Virtual Department [address] [place] [address] David Patel DO 4 [facility] Orthopedics & Sports Medicine, [facility] [place] [address] 07/16/2025 7:30 AM EST - 07/16/2025 9:55 AM EST Surgery OR Admitting Dept - Virtual Department [address] [place] [address] David Patel DO 4 [facility] Orthopedics & Sports [place] [address] [email or web address] ARTHROPLASTY ANATOMIC INVERSE SHOULDER 08/01/2025 8:00 AM EST Office Visit [facility] Orthopedics & Sports Medicine [address] [place] [address] Cameron Hayward PA-C [address] [place] [address] [place] [address] [email or web address] 08/29/2025 9:00 AM EST Office Visit [facility] Orthopedics & Sports Medicine [address] [place] [address] David Patel DO [address] [place] [address] Orthopedics & Sports [facility], [facility] [place] [address] Scheduled Procedures Name Priority Associated Diagnoses Date/Ti me ARTHROPLASTY ANATOMIC INVERSE SHOULDER Instability of prosthetic shoulder joint, sequela 07/16/2025 7:30 AM EST documented as of this encounter Results * BI MAMMOGRAM SCREENING WITH TOMOSYNTHESIS WITH CAD (BILATERAL) (07/28/2018 8:10 AM EST) Anatomical Region Laterality Modality Breast Left, Breast Right, Breast Bilateral Bila teral Mammography 07/28/2018 8:34 AM EST Impressions 07/28/2018 8:56 AM EST No mammographic evidence of malignancy. Recommend routine annual surveillance. BI-RADS CATEGORY: 2 - Benign finding. DENSITY: There are scattered fibroglandular densities. POS - CDHMAM2 Narrative 07/28/2018 8:56 AM EST 62-year-old female with no current breast symptoms. Comparison made to previous on 06/16/2017 and as far back as 03/18/2012. Interpretation made in conjunction with computer-aided detection and tomosynthesis. There are scattered areas of fibroglandular density. Stable benign bilateral scattered microcalcifications and vascular calcifications. There are no suspicious masses, areas of architectural distortion, or suspicious clusters of microcalcifications. Procedure Note Antonio Nuno MD - 07/28/2018 62-year-old female with no current breast symptoms. Comparison made toprevious on 06/16/2017 and as far back as 03/18/2012. Interpretation madein conjunction with computer-aided detection and tomosynthesis. There are scattered areas of fibroglandular density. Stable benignbilateral scattered microcalcifications and vascular calcifications. There are no suspicious masses, areas of architectural distortion, orsuspicious clusters of microcalcifications. IMPRESSION: No mammographic evidence of malignancy. Recommend routine annualsurveillance. BI-RADS CATEGORY: 2 - Benign finding. DENSITY: There are scattered fibroglandular densities. POS - CDHMAM2 Suad Hardy MD IMG MG EXAMS Final Result documented in this encounter Visit Diagnoses Diagnosis Breast screening Breast screening, unspecified Breast screening Breast screening, unspecified Instability of prosthetic shoulder joint, sequela documented in this encounter Care Teams Wood Heel Fitter Machine Relationship Specialty Start Date End Date Demetrio Gonzales MD [address] [place] [address] PCP - General 06/10/17 11/26/24 Lucius Hannon MD [address] [place] [address] PCP - General Internal Medicine 11/27/24 See Wan MD [address] [place] [address] [email or web address] Historical LMR Provider 06/09/17 Anay Bliss MD [address] [place] [address], [address] [place] [address] Historical LMR Provider 06/09/17 Tammi Corral PA-C 4 [facility] Orthopedics & Sports [facility], [place] [address] Historical LMR Provider 06/09/17 08/30/21 David Patel DO 4 [facility] Orthopedics Sports [facility], [place] [address] Historical LMR Provider 06/09/17 Demetrio Gonzales MD [address] [place] [address] [place] [address] Historical LMR Provider 06/09/17 2 Linette Echeverria PA-C [address] [place] [address] Orthopedics & Sports [facility], [place] [address] Historical LMR Provider 06/09/17 08/30/21 Cirilo Bernard MD [address] [place] [address] [address] [place] [address] Historical LMR Provider 06/09/17 08/30/21 Aikl Jenkins MD [address] [place] [address] Historical LMR Provider 06/09/17 2 documented as of this encounter Additional Source Comments The information contained in this document represents components of the legal health record. It is not the complete legal health record.[facility]
--- OUTSIDE RECORDS SUMMARY | 2025-05-07 15:22 | XMS_ITS | Encounter Summary ---
Author Organization [facility] Address [address] [place] [address] Phone Care Team Providers Care Venetian Blind Cleaner Name Role Phone See Wan MD Unavailable Anay Bliss MD Unavailable [phone] Tammi Corral PA-C Unavailable David Patel DO Unavailable [phone] Demetrio Gonzales MD Unavailable Linette Echeverria PA-C Unavailable Cirilo Bernard MD Unavailable [phone] Akil Jenkins MD Unavailable [phone] Demetrio Gonzales MD Primary Care Provider Lucius Hannon MD Primary Care Provid er Encounter Details Date Type Department Care Team (Late st Contact Info) Description 01/07/2018 Ancillary Orders [facility] Medical [facility] Orthopedics & Sports Medicine [address] [place] [address] [id number] Lniette Echeverria PA-C [address] [place] [address] Orthopedics & Sports Medicine, [facility] [place], [place] [id number] Social History Tobacco Use Types Packs/Day Years [...] Description 05/14/2025 8:00 AM EDT Office Visit [facility] Rheumatology [address] [place] [address] Anay Bliss MD [address] [place] [address], [address] [place] [address] [email or web address] 06/20/2025 8:00 AM EDT Office Visit [facility] Orthopedics & Sports Medicine [address] [place] [address] Cameron Hayward PA-C [address] [place] [address] [place] [address] [email or web address] 07/16/2025 Procedure Pass OR Admitting Dept - Virtual Department [address] [place] [address] 07/16/2025 7:30 AM EST Hospital Encounter OR Admitting Dept - Virtual Department [address] [place] [address] 08[address] David Patel DO [address] [place] [address] Orthopedics & Sports Medicine, [place] [address] 07/16/2025 7:30 AM EST - 07/16/2025 9:55 AM EST Surgery OR Admitting Dept - Virtual Department [address] [place] [address] David Patel DO 4 [facility] Orthopedics & Sports [place] [address] ARTHROPLASTY ANATOMIC INVERSE SHOULDER 08/01/2025 8:00 AM EST Office Visit [facility] Orthopedics & Sports Medicine [address] [place] [address] Cameron Hayward PA-C [address] [place] [address] [place] [address] [email or web address] 08/29/2025 9:00 AM EST Office Visit [facility] Orthopedics & Sports [address] [phone] David Patel DO [address] [place] [address] Orthopedics & Sports [facility], [place], [place] [phone] [email or web address] Scheduled Procedures Name Priority Associated Diagnoses Date/Ti me ARTHROPLASTY ANATOMIC INVERSE SHOULDER Instability of prosthetic shoulder joint, sequela 07/16/2025 7:30 AM EST documented as of this encounter Visit Diagnoses Not on filedocumented in this encounter Care Teams Venetian Blind Cleaner Relationship Specialty Start Date End Date Demetrio Gonzales MD [address] [place] [address] PCP - General 06/10/17 11/26/24 Lucius Hannon MD [address] [place] [address] PCP - General Internal Medicine 11/27/24 See Wan MD [address] [place] [address] [email or web address] Historical LMR Provider 06/09/17 Anay Bliss MD [address] [place] [address], [facility] [address] [place] [address] [email or web address] Historical LMR Provider 06/09/17 Tammi Corral PA-C [address] [place] [address] Orthopedics Sports [facility], [place] [address] Historical LMR Provider 06/09/17 08/30/21 David Patel DO [address] [place] [address] [place] [address] [email or web address] Historical LMR Provider 06/09/17 Demetrio Gonzales MD [address] [place] [address] [place] [address] Historical LMR Provider 06/09/17 2 Linette Echeverria PA-C [address] [place] [address] Orthopedics Sports [facility], [place] [address] [email or web address] Historical LMR Provider 06/09/17 08/30/21 Cirilo Bernard MD [address] [place] [address], [facility] [address] [place] [address] Historical LMR Provider 06/09/17 08/30/21 Akil Jenkins MD [address] [place] [address] Historical LMR Provider 06/09/17 2 documented as of this encounter Additional Source Comments The information contained in this document represents components of the legal health record. It is not the complete legal health record.[facility]
--- OUTSIDE RECORDS SUMMARY | 2025-05-07 15:22 | XMS_ITS | Encounter Summary ---
Author Organization [facility] Address [address] [place] [address] Phone Care Team Providers Care Assembler Garment Form Name Role Phone See Wan MD Unavailable Anay Bliss MD Unavailable Tammi Corral PA-C Unavailable [phone] David Patel DO Unavailable [phone] Demetrio Gonzales MD Unavailable Linette Echeverria PA-C Unavailable Cirilo Bernard MD Unavailable Akil Jenkins MD Unavailable [phone] Demetrio Gonzales MD Primary Care Provider Lucius Hannon MD Primary Care Provid er Encounter Details Date Type Department Care Team (Late st Contact Info) Description 12/27/2017 Procedure Pass OR Admitting Dept - Virtual Department 30 [place], [place] [phone] Social History Tobacco Use Types Packs/Day Years [...] Description 05/14/2025 8:00 AM EDT Office Visit [facility] Rheumatology 22 [place] [address] Anay Bliss MD 22 [facility], [address] [place] [address] [email or web address] 06/20/2025 8:00 AM EDT Office Visit [facility] Orthopedics & Sports Medicine [address] [place] [address] Cameron Hayward PA-C [address] [place] [address] [place] [address] [email or web address] 07/16/2025 Procedure Pass OR Admitting Dept - Virtual Department [address] [place] [address] 07/16/2025 7:30 AM EST Hospital Encounter OR Admitting Dept - Virtual Department [address] [place] [address] David Patel, [address] [place] [address] Orthopedics & Sports [place] [place] [address] 07/16/2025 7:30 AM EST - 07/16/2025 9:55 AM EST Surgery OR Admitting Dept - Virtual Department [address] [place] [address] David Patel, 4 [facility] Orthopedics & Sports [place] [address] ARTHROPLASTY ANATOMIC INVERSE SHOULDER 08/01/2025 8:00 AM EST Office Visit [facility] Orthopedics & Sports Medicine [address] [place] [address] Cameron Hayward PA-C [address] [place] [address] [place] [address] [email or web address] 08/29/2025 9:00 AM EST Office Visit [facility] Orthopedics & Sports Medicine [address] [place] [address] David Patel DO [address] [place] [address] Orthopedics & Sports Medicine, [place] [address] [email or web address] Scheduled Procedures Name Priority Associated Diagnoses Date/Ti me ARTHROPLASTY ANATOMIC INVERSE SHOULDER Instability of prosthetic shoulder joint, sequela 07/16/2025 7:30 AM EST documented as of this encounter Visit Diagnoses Not on filedocumented in this encounter Care Teams Assembler Garment Form Relationship Specialty Start Date End Date Demetrio Gonzales MD [address] [place] [address] PCP - General 06/10/17 11/26/24 Lucius Hannon MD [address] [place] [address] PCP - General Internal Medicine 11/27/24 See Wan MD [address] [place] [address] [email or web address] Historical LMR Provider 06/09/17 Anay Bliss MD [address] [place] [address], [address] [place] [address] Historical LMR Provider 06/09/17 Tammi Corral PA-C 4 [facility] Orthopedics & Sports [facility], [place] [address] Historical LMR Provider 06/09/17 08/30/21 David Patel DO 4 [facility] Orthopedics & Sports [facility], [place] [address] Historical LMR Provider 06/09/17 Demetrio Gonzales MD [address] [place] [address] [place] [address] Historical LMR Provider 06/09/17 2 Linette Echeverria PA-C [address] [place] [address] Orthopedics & Sports [facility], [place] [address] Historical LMR Provider 06/09/17 08/30/21 Cirilo Bernard MD [address] [place] [address] Historical LMR Provider 06/09/17 08/30/21 Akil Jenkins MD [address] [place] [address] Historical LMR Provider 06/09/17 2 documented as of this encounter Additional Source Comments The information contained in this document represents components of the legal health record. It is not the complete legal health record.[facility]
--- OUTSIDE RECORDS SUMMARY | 2025-05-07 15:22 | XMS_ITS | Encounter Summary ---
Author Organization [facility] Address [address] [place] [address] Phone Care Team Providers Care Corrosion Prevention Metal Sprayer Name Role Phone See Wan MD Unavailable [phone] Anay Bliss MD Unavailable Tammi Corral PA-C Unavailable [phone] David Patel DO Unavailable [phone] Demetrio Gonzales MD Unavailable [phone] Linette Echeverria PA-C Unavailable Cirilo Bernard MD Unavailable [phone] Akil Jenkins MD Unavailable [phone] Demetrio Gonzales MD Primary Care Provider Lucius Hannon MD Primary Care Provid er Encounter Details Date Type Department Care Team (Latest Contact Info) Description 08/29/2018 Transcribe Orders [facility] [address] [place] [address] [phone] Tee Oneal MD [address] [place] [address], [address] [place] [address] [email or web address] Nonintractable headache, unspecified chronicity pattern, unspecified headache type (Primary Dx) Social History Tobacco Use Types [...] Description 05/14/2025 8:00 AM EDT Office Visit [facility] Rheumatology 22 [place] [address] Anay Bliss MD [address] [place] [address], [address] [place] [address] [email or web address] 06/20/2025 8:00 AM EDT Office Visit [facility] Orthopedics & Sports Medicine [address] [place] [address] Cameron Hayward PA-C [address] [place] [address] [place] [address] [email or web address] 07/16/2025 Procedure Pass OR Admitting Dept - Virtual Department [address] [place] [address] 07/16/2025 7:30 AM EST Hospital Encounter OR Admitting Dept - Virtual Department [address] [place] [address] David Patel DO [address] [place] [address] Orthopedics & Sports Medicine, [facility] [place] [address] 07/16/2025 7:30 AM EST - 07/16/2025 9:55 AM EST Surgery OR Admitting Dept - Virtual Department [address] [place] [address] David Patel DO [address] [place] [address] Orth[facility] [place] [address] ARTHROPLASTY ANATOMIC INVERSE SHOULDER 08/01/2025 8:00 AM EST Office Visit [facility] Orthopedics & Sports Medicine [address] [place] [address] Cameron Hayward PA-C [address] [place] [address] [place] [address] [email or web address] 08/29/2025 9:00 AM EST Office Visit [facility] Orthopedics & Sports Medicine [address] [place] [address] [phone] David Patel DO [address] [place] [address] Orthopedics & Sports [facility] [address] Scheduled Procedures Name Priority Associated Diagnoses Date/Ti me ARTHROPLASTY ANATOMIC INVERSE SHOULDER Instability of prosthetic shoulder joint, sequela 07/16/2025 7:30 AM EST documented as of this encounter Results * Lipase (08/29/2018 9:26 AM EST) LIPASE 35 16 - 63 [facility] Blood 08/29/2018 9:26 AM EST 08/29/2018 9:29 AM EST us Tee Oneal MD LAB BLOOD ORDERABLES Final R [facility]ult [facility] [address] [place] [address] * Amylase (08/29/2018 9:26 AM EST) AMYLASE 70 28 - 100 [facility] Blood 08/29/2018 9:26 AM EST 08/29/2018 9:29 AM EST us Tee Oneal MD LAB BLOOD ORDERABLES Final R esult [facility] [address] [place] [address] documented in this encounter Visit Diagnoses Diagnosis Nonintractable headache, unspecified chronicity pattern, unspecified headache type- Primary Instability of prosthetic shoulder joint, sequela documented in this encounter Care Teams Corrosion Prevention Metal Sprayer Relationship Specialty Start Date End Date Demetrio Gonzales MD [address] [place] [address] PCP - General 06/10/17 11/26/24 Lucius Hannon MD [address] [place] [address] 94[address] PCP - General Internal Medicine 11/27/24 See Wan MD [address] [place] [address] [email or web address] Historical LMR Provider 06/09/17 Anay Blsis MD [address] [place] [address] 203 [place] [address] [email or web address] Historical LMR Provider 06/09/17 Tammi Corral PA-C [address] [place] [address] Orthopedics & Sports [facility], [place] [address] Historical LMR Provider 06/09/17 08/30/21 David Patel DO [address] [place] [address] Orthopedics Sports [facility], [place] [address] Historical LMR Provider 06/09/17 Demetrio Gonzales MD [address] [place] [address] [place] [address] Historical LMR Provider 06/09/17 2 Linette Echeverria PA-C [address] [place] [address] Orthopedics & Sports Medicine, [place] [address] Historical LMR Provider 06/09/17 08/30/21 Cirilo Bernard MD [address] [place] [address] Historical LMR Provider 06/09/17 08/30/21 Akil Jenkins MD [address] [place] [address] Historical LMR Provider 06/09/17 2 documented as of this encounter Additional Source Comments The information contained in this document represents components of the legal health record. It is not the complete legal health record.[facility]
--- OUTSIDE RECORDS SUMMARY | 2025-05-07 15:22 | XMS_ITS | Encounter Summary ---
Author Organization [facility] Address [address] [place] [address] Phone Care Team Providers Care Sleep Technician Name Role Phone See Wan MD Unavailable [phone] Anay Bliss MD Unavailable Tammi CorralC Unavailable [phone] David Patel DO Unavailable [phone] Demetrio Gonzales MD Unavailable Linette Echeverria-C Unavailable [phone] Cirilo Bernard MD Unavailable [phone] Akil Jenkins MD Unavailable [phone] Demetrio Gonzales MD Primary Care Provider Lucius Hannon MD Primary Care Provid er Encounter Details Date Type Department Care Team (Late st Contact Info) Description 05/20/2020 Ancillary Orders Virtual Department 30 [place] [address] Tahmina Power PA [address] [place] [address] [email or web address] Social History Tobacco Use Types Packs/Day Years [...] Description 05/14/2025 8:00 AM EDT Office Visit [facility] Rheumatology 22 [place] [address] Anay Bliss MD 22 [facility], [address] [place] [address] [email or web address] 06/20/2025 8:00 AM EDT Office Visit [facility] Orthopedics & Sports Medicine [address] [place] [address] Cameron Hayward PA-C [address] [place] [address] [place] [address] [email or web address] 07/16/2025 Procedure Pass OR Admitting Dept - Virtual Department [address] [place] [address] 07/16/2025 7:30 AM EST Hospital Encounter OR Admitting Dept - Virtual Department [address] [place] [address] David Patel DO [address] [place] [address] Orthopedics & Sports [facility] [place] [address] 07/16/2025 7:30 AM EST - 07/16/2025 9:55 AM EST Surgery OR Admitting Dept - Virtual Department [address] [place] [address] David Patel DO 4 [facility] Orthopedics & Sports [place] [place] [address] ARTHROPLASTY ANATOMIC INVERSE SHOULDER 08/01/2025 8:00 AM EST Office Visit [facility] Orthopedics & Sports Medicine [address] [place] [address] Cameron Hayward PA-C [address] [place] [address] [place] [address] [email or web address] 08/29/2025 9:00 AM EST Office Visit [facility] Orthopedics & Sports Medicine [address] [place] [address] David Patel DO [address] [place] [address] Orthopedics & Sports Medicine, [facility] [place] [address] Scheduled Procedures Name Priority Associated Diagnoses Date/Ti ok ARTHROPLASTY ANATOMIC INVERSE SHOULDER Instability of prosthetic shoulder joint, sequela 07/16/2025 7:30 AM EST documented as of this encounter Results * XR LUMBOSACRAL SPINE 4 OR MORE VIEWS (05/22/2020 10:32 AM EDT) Anatomical Region Laterality Modality L-spine Computed Radiogr aphy 05/22/2020 10:4 7 AM EDT Impressions 05/22/2020 10:50 AM EDT 1.Stable severe multilevel lumbar spine disc disease and facet arthropathy. 2.Chronic mild T12 compression fracture and moderate colonic stool volume. Narrative 05/22/2020 10:50 AM EDT HISTORY: As above. COMPARISON: 06/21/2015. LUMBAR SPINE RADIOGRAPH FINDINGS: 6 views obtained. Stable mild scoliosis. Chronic T12 anterior wedge compression fracture, multilevel endplate osteophytes, severe L2-3 through L5-S1 disc space narrowing and with moderate L4-5 and L5-S1 facet arthropathy. No spondylolysis. No destructive or suspicious bone lesions. Chronic moderate diffuse colonic stool volume. Procedure Note Negro Hodges MD - 05/22/2020 HISTORY: As above. COMPARISON: 06/21/2015. LUMBAR SPINE RADIOGRAPH FINDINGS: 6 views obtained. Stable mild scoliosis. Chronic T12 anterior wedge compression fracture,multilevel endplate osteophytes, severe L2-3 through L5-S1 disc spacenarrowing and with moderate L4-5 and L5-S1 facet arthropathy. Nospondylolysis. No destructive or suspicious bone lesions. Chronic moderatediffuse colonic stool volume. IMPRESSION: 1.Stable severe multilevel lumbar spine disc disease and facetarthropathy. 2.Chronic mild T12 compression fracture and moderate colonic stoolvolume. us Tahmina FERRELL IMG XR SPINE Final Resul t documented in this encounter Visit Diagnoses Diagnosis Lumbar back pain Lumbago Lumbar back pain Lumbago Instability of prosthetic shoulder joint, sequela documented in this encounter Care Teams Sleep Technician Relationship Specialty Start Date End Date Demetrio Gonzales MD [address] [place] [address] PCP - General 06/10/17 11/26/24 Lucius Hannon MD [address] [place] [address] PCP - General Internal Medicine 11/27/24 See Wan MD [address] [place] [address] Historical LMR Provider 06/09/17 Anay Bliss MD [address] [place] [address], [facility] 203 [place] [address] [email or web address] Historical LMR Provider 06/09/17 Tammi Corral PA-C [address] [place] [address] [facility] [place] [address] Historical LMR Provider 06/09/17 08/30/21 David Patel DO 4 [facility] Orthopedics Sports [facility], [place] [address] Historical LMR Provider 06/09/17 Demetrio Gonzales MD [address] [place] [address] [place] [address] Historical LMR Provider 06/09/17 2 Linette Echeverria PA-C [address] [place] [address] Orthopedics & Sports [facility], [place] [address] Historical LMR Provider 06/09/17 08/30/21 Cirilo Bernard MD [address] [place] [address] Historical LMR Provider 06/09/17 08/30/21 Akil Jenkins MD [address] [place] [address] Historical LMR Provider 06/09/17 2 documented as of this encounter Additional Source Comments The information contained in this document represents components of the legal health record. It is not the complete legal health record.[facility]
--- OUTSIDE RECORDS SUMMARY | 2025-05-07 15:22 | XMS_ITS | Encounter Summary ---
Author Organization [facility] Address [address] [place] [address] Phone Care Team Providers Care Sewer Pipe Cleaner Name Role Phone See Wan MD Unavailable [phone] Anay Bliss MD Unavailable Tammi Corral PA-C Unavailable [phone] David Patel DO Unavailable [phone] Demetrio Gonzales MD Unavailable [phone] Linette Echeverria PA-C Unavailable Cirilo Bernard MD Unavailable Akil Jenkins MD Unavailable [phone] Demetrio Gonzales MD Primary Care Provider Lucius Hannon MD Primary Care Provid er Encounter Details Date Type Department Care Team (Late st Contact Info) Description 04/12/2018 Procedure Pass [facility], [address] [address] Social History Tobacco Use Types Packs/Day Years [...] PM EDT documented as of this encounter Last Filed Vital Signs Vital Sign Reading Time Taken Comments Blood Pressure - - Pulse - - Temperature - - Respiratory Rate - - Oxygen Saturation - - Inhaled Oxygen Concentration - - Weight 76.7 kg (169 lb) 04/12/2018 2:46 PM EDT Height 160 cm (5' 3 ) 04/12/2018 2:46 PM EDT Body Mass Index 29.94 04/12/2018 2:46 PM EDT documented in this encounter Plan of Treatment Upcoming Encounters Date Type Department Care Team (Late st Contact Info) Description 05/14/2025 8:00 AM EDT [facility] Visit [facility] Rheumatology [address] [place] [address] [place] [address] Anay Bliss MD [address] [facility], [address] [place] [address] [email or web address] 06/20/2025 8:00 AM EDT Office Visit [facility] Orthopedics & Sports Medicine [address] [place] [address] Cameron Hayward PA-C [address] [place] [address] [place] [address] [email or web address] 07/16/2025 Procedure Pass OR Admitting Dept - Virtual Department [address] [place] [address] 07/16/2025 7:30 AM EST Hospital Encounter OR Admitting Dept - Virtual Department [address] [place] [address] David Patel DO [address] [place] [address] Orthopedics & Sports Medicine, [place] [address] 07/16/2025 7:30 AM EST - 07/16/2025 9:55 AM EST Surgery OR Admitting Dept - Virtual Department [address] [place] [address] David Patel DO [address] [place] [address] Orthopedics & Sports [facility] [place] [address] [email or web address] ARTHROPLASTY ANATOMIC INVERSE SHOULDER 08/01/2025 8:00 AM EST [facility] Visit [facility] Medicine [address] [place] [address] Cameron Hayward PA-C [address] [place] [address] [place] [address] [email or web address] 08/29/2025 9:00 AM EST Office Visit [facility] Orthopedics & Sports [address] [address] David Patel DO [address] [place] [address] Orthopedics & Sports [facility], [place] [address] [email or web address] Scheduled Procedures Name Priority Associated Diagnoses Date/Ti me ARTHROPLASTY ANATOMIC INVERSE SHOULDER Instability of prosthetic shoulder joint, sequela 07/16/2025 7:30 AM EST documented as of this encounter Visit Diagnoses Not on filedocumented in this encounter Care Teams Sewer Pipe Cleaner Relationship Specialty Start Date End Date Demetrio Gonzales MD [address] [place] [address] PCP - General 06/10/17 11/26/24 Lucius Hannon MD [address] [place] [address] [place] [address] PCP - General Internal Medicine 11/27/24 See Wan MD [address] [place] [address] [id number] [email or web address] Historical LMR Provider 06/09/17 Anay Bliss MD [address] [facility], [facility] 203 [place] [address] Historical LMR Provider 06/09/17 Tammi Corral PA-C [address] [place] [address] Orthopedics & Sports [facility], [place] [address] Historical LMR Provider 06/09/17 08/30/21 David Patel DO [address] [place] [address] Orthopedics Sports [facility], [place] [address] Historical LMR Provider 06/09/17 Demetroi Gonzales MD [address] [place] [address] [place] [address] Historical LMR Provider 06/09/17 2 Linette Echeverria PA-C [address] [place] [address] Orthopedics Sports [facility], [place] [address] Historical LMR Provider 06/09/17 08/30/21 Cirilo Bernard MD [address] [place] [address], [address] [place] [address] Historical LMR Provider 06/09/17 08/30/21 Akil Jenkins MD [address] [place] [address] Historical LMR Provider 06/09/17 2 documented as of this encounter Additional Source Comments The information contained in this document represents components of the legal health record. It is not the complete legal health record.[facility]
--- OUTSIDE RECORDS SUMMARY | 2025-05-07 15:22 | XMS_ITS | Encounter Summary ---
Author Organization [facility] Address [address] [place] [address] Phone Care Team Providers Care Fertilizing Machine Operator Name Role Phone See Wan MD Unavailable [phone] Anay Bliss MD Unavailable Tammi Corral PA-C Unavailable [phone] David Patel DO Unavailable [phone] Demetrio Gonzales MD Unavailable [phone] Linette Echeverria PA-C Unavailable [phone] Cirilo Bernard MD Unavailable Akil Jenkins MD Unavailable [phone] Demetrio Gonzales MD Primary Care Provider Lucius Hannon MD Primary Care Provid er Encounter Details Date Type Department Care Team (Latest Contact Info) Description 09/27/2019 Transcribe Orders [facility] [address] [place] [address] [phone] Tee Oneal MD [address] [place] [address], [address] [place] [address] [email or web address] Nonintractable headache, unspecified chronicity pattern, unspecified [...] Description 05/14/2025 8:00 AM EDT Office Visit [facility] Rheumatology 22 [place] [address] Anay Bliss MD [address] [place] [address], [address] [place] [address] [email or web address] 06/20/2025 8:00 AM EDT Office Visit [facility] Orthopedics & Sports Medicine [address] [place] [address] Cameron Hayward PA-C [address] [place] [address] [place] [address] [email or web address] 07/16/2025 Procedure Pass OR Admitting Dept - Virtual Department [address] [place] [address] 07/16/2025 7:30 AM EST Hospital Encounter OR Admitting Dept - Virtual Department [address] [place] [address] David Patel DO [address] [place] [address] Orthopedics & Sports Medicine, [place] [address] 07/16/2025 7:30 AM EST - 07/16/2025 9:55 AM EST Surgery OR Admitting Dept - Virtual Department [address] [place] [address] David Patel DO [address] [place] [address] Orth[facility] [place] [place] [address] ARTHROPLASTY ANATOMIC INVERSE SHOULDER 08/01/2025 8:00 AM EST Office Visit [facility] Orthopedics & Sports [address] [address] Cameron Hayward PA-C [address] [place] [address] [place] [address] [email or web address] 08/29/2025 9:00 AM EST Office Visit [facility] Orthopedics & Sports [address] [address] David Patel DO 4 [facility] Orthopedics & Sports [facility] [address] Scheduled Procedures Name Priority Associated Diagnoses Date/Ti me ARTHROPLASTY ANATOMIC INVERSE SHOULDER Instability of prosthetic shoulder joint, sequela 07/16/2025 7:30 AM EST documented as of this encounter Results * CBC (09/27/2019 10:43 AM EST) [facility] Signature WBC 5.38 4.00 - 11.00 K/uL [facility] Comment:Note Reference Range updates to all CBC and Differential results. RBC 4.54 3.72 - 5.30 M/uL [facility] HGB 14.3 11.4 - 15.9 g/dL [facility] Comment:Note updated Referen ce Ranges for all CBC and Differential results. HCT 41.7 34.2 - 46.8 % [facility] PLT 224 140 - 430 K/uL [facility] MCV 91.9 78.0 - 97.0 fL [facility] MCH 31.5 25.0 - 33.0 pg [facility] MCHC 34.3 32.0 - 36.0 g/dL [facility] RDW 13.2 11.0 - 16.0 % [facility] MPV 10.3 8.4 - 12.8 [facility] NRBC 0.00 0 /100 WBCs [facility] ABSOLUTE NRBC 0.00 0 K/uL [facility] Blood 09/27/2019 10:4 3 AM EST 09/27/2019 10:47 AM EST us Tee Oneal MD LAB BLOOD ORDERABLES Final R esult Performing Organization Address City/[facility] Co de Phone Number [address] [address] * LFTs (hepatic panel) (09/27/2019 10:43 AM EST) [facility] 72 39 - 117 U/L [facility] TOTAL BILIRUBIN 0.3 0.0 - 1.2 mg/dL [facility] DIRECT BILIRUBIN <0.2 0 - 0.3 mg/dL [facility] Bilirubin (Indirect) NOT CALCULATED 0 - 1.5 mg/dL [facility] AST 32 0 - 37 U/L [facility] ALT 25 0 - 40 U/L [facility] TOTAL PROTEIN 7.3 6.5 - 8.0 g/dL [facility] ALBUMIN 4.5 3.9 - 4.8 g/dL [facility] GLOBULIN 2.8 1 - 4.8 g/dL [facility] A/G Ratio 1.61 1.00 - 4.80 RATIO [facility] Blood 09/27/2019 10:4 3 AM EST 09/27/2019 10:47 AM EST us Tee Oneal MD LAB BLOOD ORDERABLES Final R esult Performing Organization Address City/[facility]/ZIP Co de Phone Number [address] [address] documented in this encounter Visit Diagnoses Diagnosis Nonintractable headache, unspecified chronicity pattern, unspecified headache type- Primary Instability of prosthetic shoulder joint, sequela documented in this encounter Care Teams Fertilizing Machine Operator Relationship Specialty Start Date End Date Demetrio Gonzales MD [address] [place] [address] [place] [address] PCP - General 06/10/17 11/26/24 Lucius Hannon MD [address] [place] [address] PCP - General Internal Medicine 11/27/24 See Wan MD [address] [place] [address] [email or web address] Historical LMR Provider 06/09/17 Anay Bliss MD [address] [place] [address] 203 [place] [address] Historical LMR Provider 06/09/17 Tammi Corral PA-C [address] [place] [address] Orthopedics & Sports [facility], [place] [address] Historical LMR Provider 06/09/17 08/30/21 David Patel DO [address] [place] [address] Orthopedics Sports [facility], [place] [address] Historical LMR Provider 06/09/17 Demetrio Gonzales MD [address] [place] [address] [place] [address] Historical LMR Provider 06/09/17 2 Linette Echeverria PA-C [address] [place] [address] Orthopedics & Sports [facility], [place] [address] [email or web address] Historical LMR Provider 06/09/17 08/30/21 Cirilo Bernard MD [address] [place] [address] [email or web address] Historical LMR Provider 06/09/17 08/30/21 Akil Jenkins MD [address] [place] [address] Historical LMR Provider 06/09/17 2 documented as of this encounter Additional Source Comments The information contained in this document represents components of the legal health record. It is not the complete legal health record.[facility]
--- OUTSIDE RECORDS SUMMARY | 2025-05-07 15:22 | XMS_ITS | Encounter Summary ---
Author Organization [facility] Address [address] [place] [address] Phone Care Team Providers Care Cash Reconciliation Specialist Name Role Phone See Wan MD Unavailable [phone] Anay Bliss MD Unavailable Tammi Corral PA-C Unavailable [phone] David Patel DO Unavailable [phone] Demetrio Gonzales MD Unavailable Linette Echeverria PA-C Unavailable [phone] Cirilo Bernard MD Unavailable [phone] Akil Jenkins MD Unavailable [phone] Demetrio Gonzales MD Primary Care Provider Lucius Hannon MD Primary Care Provid er Encounter Details Date Type Department Care Team (Latest Contact Info) Description 07/20/2018 Ancillary Orders Virtual Department 30 [place] [address] Dony Aguero MD [address] [address] Left knee pain, unspecified chronicity; 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 [address] [email or web address] 07/16/2025 Procedure Pass OR Admitting Dept - Virtual Department [address] [place] [address] 07/16/2025 7:30 AM EST Hospital Encounter OR Admitting Dept - Virtual Department [address] [place] [address] David Patel DO 4 [facility] Orthopedics & Sports Medicine, [facility] [place] [address] 07/16/2025 7:30 AM EST - 07/16/2025 9:55 AM EST Surgery OR Admitting Dept - Virtual Department [address] [place] [address] David Patel DO 4 [facility] Orthopedics & Sports [place] [place] [address] [email or web address] ARTHROPLASTY ANATOMIC INVERSE SHOULDER 08/01/2025 8:00 AM EST Office Visit [facility] Orthopedics & Sports Medicine [address] [place] [address] Cameron Hayward PA-C [address] [place] [address] [place] [address] [email or web address] 08/29/2025 9:00 AM EST Office Visit [facility] Orthopedics & Sports Medicine [address] [place] [address] David Patel DO [address] [place] [address] Orthopedics & Sports [facility], [place] [address] [email or web address] Scheduled Procedures Name Priority Associated Diagnoses Date/Ti me ARTHROPLASTY ANATOMIC INVERSE SHOULDER Instability of prosthetic shoulder joint, sequela 07/16/2025 7:30 AM EST documented as of this encounter Visit Diagnoses Diagnosis Left knee pain, unspecified chronicity 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, 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, sequela documented in this encounter Care Teams Cash Reconciliation Specialist Relationship Specialty Start Date End Date Demetrio Gonzales MD [address] [place] [address] PCP - General 06/10/17 11/26/24 Lucius Hannon MD [address] [place] [address] PCP - General Internal Medicine 11/27/24 See Wan MD [address] [place] [address] [id number] Historical LMR Provider 06/09/17 Anay Bliss MD 22 [facility], [facility] 203 [place] [address] Historical LMR Provider 06/09/17 Tammi Corral PA-C [address] [place] [address] [place] [address] Historical LMR Provider 06/09/17 08/30/21 David Patel DO [address] [place] [address] [facility] [place] [address] [email or web address] Historical LMR Provider 06/09/17 Demetrio Gonzales MD [address] [place] [address] [place] [address] Historical LMR Provider 06/09/17 Linette aPtel PA-C [address] [place] [address] [facility] [place] [address] Historical LMR Provider 06/09/17 08/30/21 Ciriol Bernard MD [address] [place] [address], [address] [place] [address] Historical LMR Provider 06/09/17 08/30/21 Akil Jenkins MD [address] [place] [address] Historical LMR Provider 06/09/17 2 documented as of this encounter Additional Source Comments The information contained in this document represents components of the legal health record. It is not the complete legal health record.[facility]
--- OUTSIDE RECORDS SUMMARY | 2025-05-07 15:22 | XMS_ITS | Encounter Summary ---
Author Organization [facility] Address [address] [place] [address] Phone Care Team Providers Care Nurse College Name Role Phone See Wan MD Unavailable Anay Bliss MD Unavailable Tammi Corral PA-C Unavailable [phone] David Patel DO Unavailable [phone] Demetrio Gonzales MD Unavailable Linette Echeverria PA-C Unavailable Cirilo Bernard MD Unavailable Aikl Jenkins MD Unavailable [phone] Demetrio Gonzales MD Primary Care Provider Lucius Hannon MD Primary Care Provid er Encounter Details Date Type Department Care Team (Late st Contact Info) Description 04/23/2020 Procedure Pass [address] [phone] Social History Tobacco Use Types Packs/Day Years [...] Description 05/14/2025 8:00 AM EDT Office Visit [facility] Rheumatology [address] [place] [address] Anay Bliss MD [address] [facility], [address] [place] [address] [email or web address] 06/20/2025 8:00 AM EDT Office Visit [facility] Orthopedics & Sports Medicine [address] [place] [address] Cameron Hayward PA-C [address] [place] [address] [place] [address] [email or web address] 07/16/2025 Procedure Pass OR Admitting Dept - Virtual Department [address] [place] [address] 07/16/2025 7:30 AM EST Hospital Encounter OR Admitting Dept - Virtual Department [address] [place] [address] David Patel, DO [address] [place] [address] Orthoped[facility] [place] [address] 07/16/2025 7:30 AM EST - 07/16/2025 9:55 AM EST Surgery OR Admitting Dept - Virtual Department [address] [place] [address] David Patel, DO 4 [facility] Orthopedics & Sports [facility], [place] [address] ARTHROPLASTY ANATOMIC INVERSE SHOULDER 08/01/2025 8:00 AM EST Office Visit [facility] Orthopedics & Sports Medicine [address] [place] [address] Cameron Hayward PA-C [address] [place] [address] [place] [address] [email or web address] 08/29/2025 9:00 AM EST Office Visit [facility] Orthopedics & Sports Medicine [address] [place] [address] David Patel DO [address] [place] [address] Orthopedics & Sports Medicine, [place] [address] [email or web address] Scheduled Procedures Name Priority Associated Diagnoses Date/Ti me ARTHROPLASTY ANATOMIC INVERSE SHOULDER Instability of prosthetic shoulder joint, sequela 07/16/2025 7:30 AM EST documented as of this encounter Visit Diagnoses Not on filedocumented in this encounter Care Teams Nurse College Relationship Specialty Start Date End Date Demetrio Gonzales MD [address] [place] [address] PCP - General 06/10/17 11/26/24 Lucius Hannon MD [address] [place] [address] PCP - General Internal Medicine 11/27/24 See Wan MD [address] [place] [address] [email or web address] Historical LMR Provider 06/09/17 Anay Bliss MD [address] [place] [address], [address] [place] [address] Historical LMR Provider 06/09/17 Tammi Corral PA-C 4 [facility] Orthopedics & Sports Medicine, [place] [address] Historical LMR Provider 06/09/17 08/30/21 David Patel DO 4 [facility] Orthopedics & Sports [facility], [place] [address] Historical LMR Provider 06/09/17 Demetrio Gonzales MD [address] [place] [address] [place] [address] Historical LMR Provider 06/09/17 2 Linette Echeverria PA-C [address] [place] [address] Orthopedics & Sports Medicine, [place] [address] Historical LMR Provider 06/09/17 08/30/21 Cirilo Bernard MD [address] [place] [address] Historical LMR Provider 06/09/17 08/30/21 Akil Jenkins MD [address] [place] [address] Historical LMR Provider 06/09/17 2 documented as of this encounter Additional Source Comments The information contained in this document represents components of the legal health record. It is not the complete legal health record.[facility]
--- OUTSIDE RECORDS SUMMARY | 2025-05-07 15:22 | XMS_ITS | Encounter Summary ---
Author Organization [facility] Address [address] [place] [address] Phone Care Team Providers Care Balance Clerk Name Role Phone See Wan MD Unavailable [phone] Anay Bliss MD Unavailable [phone] Tammi Corral PA-C Unavailable [phone] David Patel DO Unavailable Demetrio Gonzales MD Unavailable Linette Echeverria PA-C Unavailable Cirilo Bernard MD Unavailable [phone] Akil Jenkins MD Unavailable [phone] Demetrio Gonzales MD Primary Care Provider Lucius Hannon MD Primary Care Provid er Reason for Referral * Outpatient Procedure - Closed Specialty Diagnoses / Procedures Referred By Edmond t Referred To Contact Radiology Diagnoses 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, initial encounter Left knee pain, unspecified chronicity Procedures NM Bone Flow 3 Phase Marah Pickens NP Phone: tel: fax: mailto:[email or web address] Referral ID Status Reason Start Date Expiration Date Visits Re quested Visits Authorized [id number] Closed 07/22/2018 07/22/2019 1 1 Encounter Details Date Type Department Care Team (Latest Contact Info) Description 07/22/2018 Ancillary Orders Virtual Department [address] [place] [address] Marah Pickens NP [address] [place] [address] [email or web address] 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 [address] [email or web address] 07/16/2025 Procedure Pass OR Admitting Dept - Virtual Department [address] [place] [address] 07/16/2025 7:30 AM EST Hospital Encounter OR Admitting Dept - Virtual Department [address] [place] [address] David Patel DO 4 [facility] Orthopedics & Sports [facility], [place] [address] 07/16/2025 7:30 AM EST - 07/16/2025 9:55 AM EST Surgery OR Admitting Dept - Virtual Department [address] [place] [address] David Patel DO 4 [facility] Orthopedics Sports [facility], [place] [address] ARTHROPLASTY ANATOMIC INVERSE SHOULDER 08/01/2025 8:00 AM EST Office Visit [facility] Orthopedics & Sports Medicine [address] [place] [address] Cameron Hayward PA-C [address] [place] [address] [place] [address] [email or web address] 08/29/2025 9:00 AM EST Office Visit [facility] Orthopedics & Sports Medicine [address] [place] [address] David Patel DO [address] [place] [address] Orthopedics & Sports [facility] [place] [address] Scheduled Procedures Name Priority Associated Diagnoses Date/Ti me ARTHROPLASTY ANATOMIC INVERSE SHOULDER Instability of prosthetic shoulder joint, sequela 07/16/2025 7:30 AM EST documented as of this encounter Results * NM Bone Flow 3 Phase (07/25/2018 1:39 PM EST) Anatomical Region Laterality Modality Shoulder Right, Shoulder Lef t, Arm Left, Arm Right, Elbow Left, Elbow Right, Forearm Left, Forearm Right, Wrist Right, Wrist Left, Hand Left, Hand Right, Hip Left, Hip Right, Hip Bilateral, Thigh Left, Thigh Right, Knee Left, Knee Right, Knee Bilateral, Leg Left, Leg Right, Ankle Left, Ankle Right, Foot Left, Foot Right, Pelvis Nucle ar Medicine 07/25/2018 1:33 PM EST Impressions 07/25/2018 1:37 PM EST Status post left total knee replacement without findings of recent fracture in this region. No definitive findings of loosening are confirmed. Moderately prominent findings evident in the ankles and feet more so on the right than the left as detailed above. S/S: Trauma, fall one month and 1/2 ago, left knee pain POS - [id number] Narrative 07/25/2018 1:37 PM EST DOSE: 24.4 mCi Tc-99m labeled MDP COMPARISON: Left knee x-ray June 29, 2018 FINDINGS: Flow images disclose mild increased flow related the distal left femur region. Blood pool images disclose minor increased activity in the same region. Static views disclose an appearance suggestive of a prior left knee replacement. No findings of a definitive recent fracture or definitive findings of loosening are noted. There is intense activity evident in multiple sites in the right ankle and right mid foot suggesting possible prior injury or degenerative change. Less prominent activity is evident in the left midfoot. Procedure Note Cesar Felton MD - 07/25/2018 DOSE: 24.4 mCi Tc-99m labeled MDP COMPARISON: Left knee x-ray June 29, 2018 FINDINGS: Flow images disclose mild increased flow related the distal left femurregion. Blood pool images disclose minor increased activity in the sameregion. Static views disclose an appearance suggestive of a prior leftknee replacement. No findings of a definitive recent fracture ordefinitive findings of loosening are noted. There is intense activity evident in multiple sites in the right ankle andright mid foot suggesting possible prior injury or degenerative change.Less prominent activity is evident in the left midfoot. IMPRESSION: Status post left total knee replacement without findings of recentfracture in this region. No definitive findings of loosening areconfirmed. Moderately prominent findings evident in the ankles and feet more so onthe right than the left as detailed above. 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, initial encounter Left knee pain, unspecified chronicity Instability of prosthetic shoulder joint, sequela documented in this encounter Care Teams Balance Clerk Relationship Specialty Start Date End Date Demetrio Gonzales MD [address] [place] [address] PCP - General 06/10/17 11/26/24 Lucius Hannon MD [address] [place] [address] PCP - General Internal Medicine 11/27/24 See Wan MD [address] [place] [address] [email or web address] Historical LMR Provider 06/09/17 Anay Bliss MD [address] [place] [address], [address] [place] [address] Historical LMR Provider 06/09/17 Tammi Corral PA-C [address] [place] [address] Orthopedics & Sports [facility], [place] [address] Historical LMR Provider 06/09/17 08/30/21 David Patel DO [address] [place] [address] Orthopedics & Sports [facility], [place] [address] Historical LMR Provider 06/09/17 Demetrio Gonzales MD [address] [place] [address] [place] [address] Historical LMR Provider 06/09/17 2 Linette Echeverria PA-C [address] [place] [address] Orthopedics & Sports Medicine, [place] [address] Historical LMR Provider 06/09/17 08/30/21 Cirilo Bernard MD [address] [place] [address] Historical LMR Provider 06/09/17 08/30/21 Akil Jenkins MD [address] [place] [address] Historical LMR Provider 06/09/17 2 documented as of this encounter Additional Source Comments The information contained in this document represents components of the legal health record. It is not the complete legal health record.[facility]
--- OUTSIDE RECORDS SUMMARY | 2025-05-07 15:22 | XMS_ITS | Encounter Summary ---
Author Organization [facility] Address [address] [place] [address] Phone Care Team Providers Care Ink Printer Name Role Phone See Wan MD Unavailable [phone] Anay Bliss MD Unavailable [phone] Tammi Corral PA-C Unavailable [phone] David Patel DO Unavailable [phone] Demetrio Gonzales MD Unavailable Linette Echeverria PA-C Unavailable [phone] Cirilo Bernard MD Unavailable [phone] Akil Jenkins MD Unavailable [phone] Demetrio Gonzales MD Primary Care Provider Lucius Hannon MD Primary Care Provid er Reason for Referral * MRI/CAT Scan - Closed Specialty Diagnoses / Procedures Referred By Edmond t Referred To Contact Radiology Diagnoses White matter disease Dizziness Seizures Procedures MRI Brain Tee Oneal MD Phone: tel: fax: mailto: Referral ID Status Reason Start Date Expiration Date Visits Re quested Visits Authorized [id number] Closed 04/12/2018 07/11/2018 1 1 Encounter Details Date Type Department Care Team (Late st Contact Info) Description 04/12/2018 Ancillary Orders Virtual Department [address] [place] [address] Tee Oneal MD [address] [place] [address], [address] [place] [address] [email or web address] White matter disease; Dizziness; Seizures Social History Tobacco Use Types Packs/Day Years [...] 05/14/2025 8:00 AM EDT Office Visit [facility] Rheumatology [address] [place] [address] Anay Bliss MD [address] [place] [address], [address] [place] [address] [email or web address] 06/20/2025 8:00 AM EDT Office Visit [facility] Orthopedics & Sports Medicine [address] [place] [address] Cameron Hayward PA-C [address] [place] [address] [place] [address] [email or web address] 07/16/2025 Procedure Pass OR Admitting Dept - [facility] Department [address] [place] [address] 07/16/2025 7:30 AM EST Hospital Encounter OR Admitting Dept - Virtual Department [address] [place] [address] David Patel, DO 4 [facility] Orthopedics & Sports [place] [place] [address] 07/16/2025 7:30 AM EST - 07/16/2025 9:55 AM EST Surgery OR Admitting Dept - Virtual Department [address] [place] [address] David Patel, DO 4 [facility] Orthopedics & Sports [facility] [place] [address] ARTHROPLASTY ANATOMIC INVERSE SHOULDER 08/01/2025 8:00 AM EST Office Visit [facility] Orthopedics & Sports Medicine [address] [place] [address] Cameron Hayward PA-C [address] [place] [address] [place] [address] [email or web address] 08/29/2025 9:00 AM EST Office Visit [facility] Orthopedics & Sports Medicine [address] [place] [address] David Patel DO [address] [place] [address] Orth[facility] [place] [address] Scheduled Procedures Name Priority Associated Diagnoses Date/Ti me ARTHROPLASTY ANATOMIC INVERSE SHOULDER Instability of prosthetic shoulder joint, sequela 07/16/2025 7:30 AM EST documented as of this encounter Results * MRI BRAIN WITHOUT CONTRAST (04/16/2018 8:41 AM EDT) Anatomical Region Laterality Modality Head Magnetic Resonan ce 04/16/2018 8:58 AM EDT Impressions 04/16/2018 9:34 AM EDT Mild to moderately progressive white matter changes with one lesion somewhat suggestive of MS-type demyelination. No mass, hemorrhage, or infarction is detected. POS - [id number] Edited by: Zahra Dumont on 04/16/2018 9:24 AM Narrative 04/16/2018 9:34 AM EDT HISTORY: Tinnitus. Dizziness. Headache. Migraine. Prior abnormal MRI. Seizure. White matter disease. COMPARISON: Several prior, most recent May 27, 2013. TECHNIQUE: Exam performed on a 1.5 Cha high-field MRI scanner. Axial T1, T2, T2 FLAIR and diffusion-weighted imaging with ADC map, coronal T2 FLAIR and STIR, sagittal T1 and T2 FLAIR sequences were obtained. FINDINGS: Multiple white matter lesions are again noted throughout the supratentorial white matter tracts. Many of these have increased slightly in size and there are some new lesions since the prior. There are more than two dozen present. There is one in the left white matter which has a vertical configuration but no other lesions highly characteristic of MS-type demyelination are identified. No lesions within the corpus callosum or cerebral peduncles are identified. No progressive volume loss apparent at the medial temporal lobes. No abnormal intra or extra-axial blood or fluid collection, mass, or mass effect is identified. The pituitary is not enlarged. Cerebellar tonsils are not ectopic. No gross orbital lesion. Prominent kaley bullosa on the left. Mucosal thickening in the lower maxillary sinuses. No fluid. No prominent fluid intensity in mastoid air cells. There appear to be preserved flow voids in the major intracranial arteries and veins. No hydrocephalus. Procedure Note Aviva Coreas MD - 04/16/2018 HISTORY: Tinnitus. Dizziness. Headache. Migraine. Prior abnormal MRI.Seizure. White matter disease. COMPARISON: Several prior, most recent May 27, 2013. TECHNIQUE: Exam performed on a 1.5 Cha high-field MRI scanner. AxialT1, T2, T2 FLAIR and diffusion-weighted imaging with ADC map, coronal [id number] and STIR, sagittal T1 and T2 FLAIR sequences were obtained. FINDINGS: Multiple white matter lesions are again noted throughout thesupratentorial white matter tracts. Many of these have increased slightlyin size and there are some new lesions since the prior. There are morethan two dozen present. There is one in the left white matter which has avertical configuration but no other lesions highly characteristic ofMS-type demyelination are identified. No lesions within the corpuscallosum or cerebral peduncles are identified. No progressive volume lossapparent at the medial temporal lobes. No abnormal intra or extra-axialblood or fluid collection, mass, or mass effect is identified. Thepituitary is not enlarged. Cerebellar tonsils are not ectopic. No grossorbital lesion. Prominent kaley bullosa on the left. Mucosal thickeningin the lower maxillary sinuses. No fluid. No prominent fluid intensity inmastoid air cells. There appear to be preserved flow voids in the majorintracranial arteries and veins. No hydrocephalus. IMPRESSION: Mild to moderately progressive white matter changes with one lesionsomewhat suggestive of MS-type demyelination. No mass, hemorrhage, orinfarction is detected. POS - [id number] Edited by: Zahra Dumont on 04/16/2018 9:24 AM Tee Oneal MD IMG MR HEAD/NECK Final Resul t documented in this encounter Visit Diagnoses Diagnosis White matter disease Dizziness Dizziness and giddiness Seizures Other convulsions White matter disease Dizziness Dizziness and giddiness Seizures Other convulsions Instability of prosthetic shoulder joint, sequela documented in this encounter Care Teams Ink Printer Relationship Specialty Start Date End Date Demetrio Gonzales MD [address] [place] [address] PCP - General 06/10/17 11/26/24 Lucius Hannon MD [address] [place] [address] PCP - General Internal Medicine 11/27/24 See Wan MD [address] [place] [address] Historical LMR Provider 06/09/17 Anay Bliss MD [address] [place], [place] [address], [place] [address] Historical LMR Provider 06/09/17 Tammi Corral PA-C [address] [place] [address] Orthopedics Sports [facility], [place] [address] Historical LMR Provider 06/09/17 08/30/21 David Patel DO [address] [place] [address] [facility] [place] [address] Historical LMR Provider 06/09/17 Demetrio Gonzales MD [address] [place] [address] [place] [address] Historical LMR Provider 06/09/17 2 Linette Echeverria PA-C [address] [place] [address] [place] [address] Historical LMR Provider 06/09/17 08/30/21 Cirilo Bernard MD [address] [place] [address], [facility] [address] [place] [address] Historical LMR Provider 06/09/17 08/30/21 Akil Jenkins MD [address] [place] [address] Historical LMR Provider 06/09/17 2 documented as of this encounter Additional Source Comments The information contained in this document represents components of the legal health record. It is not the complete legal health record.[facility]
--- OUTSIDE RECORDS SUMMARY | 2025-05-07 15:22 | XMS_ITS | Encounter Summary ---
Author Organization [facility] Address [address] [place] [address] Phone Care Team Providers Care Digester Operator Helper Name Role Phone See Wan MD Unavailable [phone] Anay Bliss MD Unavailable [phone] Tammi Corral PA-C Unavailable [phone] David Patel DO Unavailable Demetrio Gonzales MD Unavailable [phone] Linette Echeverria PA-C Unavailable [phone] Cirilo Bernard MD Unavailable Akil Jenkins MD Unavailable [phone] Demetrio Gonzales MD Primary Care Provider Lucius Hannon MD Primary Care Provid er Encounter Details Date Type Department Care Team (Late st Contact Info) Description 01/07/2018 Ancillary Orders [address] [id number] Linette Echeverria PA-C [address] [place] [address] Orthopedics & Sports Medicine, [place], [place] [phone] [email or web address] Left shoulder pain, unspecified chronicity Social History Tobacco Use [...] Description 05/14/2025 8:00 AM EDT Office Visit [facility] Rheumatology [address] [place] [address] Anay Bliss MD [address] [place] [address], [address] [place] [address] [email or web address] 06/20/2025 8:00 AM EDT Office Visit [facility] Orthopedics & Sports Medicine [address] [place] [address] Cameron Hayward PA-C [address] [place] [address] [place] [address] [email or web address] 07/16/2025 Procedure Pass OR Admitting Dept - Virtual Department [address] [place] [address] 07/16/2025 7:30 AM EST Hospital Encounter OR Admitting Dept - Virtual Department [address] [place] [address] David Patel DO [address] [place] [address] Orthopedics & Sports Medicine, [facility] [place] [address] 07/16/2025 7:30 AM EST - 07/16/2025 9:55 AM EST Surgery OR Admitting Dept - Virtual Department [address] [place] [address] David Patel DO [address] [place] [address] [facility] [place] [address] ARTHROPLASTY ANATOMIC INVERSE SHOULDER 08/01/2025 8:00 AM EST Office Visit [facility] Orthopedics & Sports Medicine [address] [place] [address] Cameron Hayward PA-C [address] [place] [address] [place] [address] [email or web address] 08/29/2025 9:00 AM EST Office Visit [facility] Orthopedics & Sports [address] [address] David Patel DO [address] [place] [address] Orthopedics Sports [facility], [place] [address] Scheduled Procedures Name Priority Associated Diagnoses Date/Ti va ARTHROPLASTY ANATOMIC INVERSE SHOULDER Instability of prosthetic shoulder joint, sequela 07/16/2025 7:30 AM EST documented as of this encounter Results * XR SHOULDER 2 VIEWS (LEFT) (01/11/2018 10:42 AM EDT) Narrative Germania Marienellie Santana - 01/11/2018 10:42 AM EDT This image report has been auto-finalized and has not been read by a Radiologist. Interpretation has been included in the provider encounter note for this date of service. us David Patel DO IMG XR UPPER EXTREMITY Ria l Result documented in this encounter Visit Diagnoses Diagnosis Left shoulder pain, unspecified chronicity Left shoulder pain, unspecified chronicity Instability of prosthetic shoulder joint, sequela documented in this encounter Care Teams Digester Operator Helper Relationship Specialty Start Date End Date Demetrio Gonzales MD [address] [place] [address] [place] [address] PCP - General 06/10/17 11/26/24 Lucius Hannon MD [address] [place] [address] PCP - General Internal Medicine 11/27/24 See Wan MD [address] [place] [address] [email or web address] Historical LMR Provider 06/09/17 Aany Bliss MD [address] [place] [address], [address] [place] [address] [email or web address] Historical LMR Provider 06/09/17 Tammi Corral PA-C [address] [place] [address] Orthopedics Sports [facility], [place] [address] Historical LMR Provider 06/09/17 08/30/21 David Patel DO [address] [place] [address] Orthopedics Sports [facility], [place] [address] Historical LMR Provider 06/09/17 Demetrio Gonzales MD [address] [place] [address] Historical LMR Provider 06/09/17 Linette aPtel PA-C [address] [place] [address] Orthopedics Sports [facility], [place] [address] Historical LMR Provider 06/09/17 08/30/21 Cirilo Bernard MD [address] [place] [address] [email or web address] Historical LMR Provider 06/09/17 08/30/21 Akil Jenkins MD [address] [place] [address] Historical LMR Provider 06/09/17 2 documented as of this encounter Additional Source Comments The information contained in this document represents components of the legal health record. It is not the complete legal health record.[facility]
--- OUTSIDE RECORDS SUMMARY | 2025-05-07 15:22 | XMS_ITS | Encounter Summary ---
Author Organization [facility] Address [address] [place] [address] Phone Care Team Providers Care Patient Accounts Specialist Name Role Phone See Wan MD Unavailable [phone] Anay Bliss MD Unavailable [phone] Tammi Corral PA-C Unavailable [phone] David Patel DO Unavailable [phone] Demetrio Gonzales MD Unavailable [phone] Linette Echeverria PA-C Unavailable Cirilo Bernard MD Unavailable [phone] Akil Jenkins MD Unavailable [phone] Demetrio Gonzales MD Primary Care Provider Lucius Hannon MD Primary Care Provid er Encounter Details Date Type Department Care Team (Latest Contact Info) Description 10/23/2019 Transcribe Orders Virtual Department 30 [place], [place] [phone] Tee Oneal MD [address] [place] [address], [address] [place], [place] [phone] [email or web address] White matter disease (Primary Dx) Social History Tobacco Use Types [...] Description 05/14/2025 8:00 AM EDT Office Visit [facility] Rheumatology [address] [place] [address] Anay Bliss MD 22 [facility], [address] [place] [address] [email or web address] 06/20/2025 8:00 AM EDT Office Visit [facility] Orthopedics & Sports Medicine [address] [place] [address] Cameron Hayward PA-C [address] [place] [address] [place] [address] [email or web address] 07/16/2025 Procedure Pass OR Admitting Dept - Virtual Department [address] [place] [address] 07/16/2025 7:30 AM EST Hospital Encounter OR Admitting Dept - Virtual Department [address] [place] [address] David Patel DO [address] [place] [address] Orthopedics & Sports Medicine, [place] [address] 07/16/2025 7:30 AM EST - 07/16/2025 9:55 AM EST Surgery OR Admitting Dept - Virtual Department [address] [place] [address] David Patel DO 4 [facility] Orthopedics & Sports Medicine, [place] [address] ARTHROPLASTY ANATOMIC INVERSE SHOULDER 08/01/2025 8:00 AM EST Office Visit [facility] Orthopedics & Sports Medicine [address] [place] [address] Cameron Hayward PA-C [address] [place] [address] [place] [address] [email or web address] 08/29/2025 9:00 AM EST Office Visit [facility] Orthopedics & Sports Medicine [address] [place] [address] David Patel DO [address] [place] [address] Orthopedics & Sports [facility], [place] [address] [email or web address] Scheduled Procedures Name Priority Associated Diagnoses Date/Ti me ARTHROPLASTY ANATOMIC INVERSE SHOULDER Instability of prosthetic shoulder joint, sequela 07/16/2025 7:30 AM EST documented as of this encounter Visit Diagnoses Diagnosis White matter disease- Primary Instability of prosthetic shoulder joint, sequela documented in this encounter Care Teams Patient Accounts Specialist Relationship Specialty Start Date End Date Demetrio Gonzales MD [address] [place] [address] PCP - General 06/10/17 11/26/24 Lucius Hannon MD [address] [place] [address] PCP - General Internal Medicine 11/27/24 See Wan MD [address] [place] [address] [email or web address] Historical LMR Provider 06/09/17 Anay Bliss MD [address] [place] [address] 203 [place] [address] [email or web address] Historical LMR Provider 06/09/17 Tammi Corral PA-C [address] [place] [address] Orthopedics Sports [facility], [place] [address] Historical LMR Provider 06/09/17 08/30/21 David Patel DO [address] [place] [address] [place] [address] [email or web address] Historical LMR Provider 06/09/17 Demetrio Gonzales MD [address] [place] [address] [place] [address] Historical LMR Provider 06/09/17 2 Linette Echeverria PA-C [address] [place] [address] Orthopedics Sports [facility], [place] [address] Historical LMR Provider 06/09/17 08/30/21 Cirilo Bernard MD [address] [place] [address] 102 [place] [address] Historical LMR Provider 06/09/17 08/30/21 Akil Jenkins MD [address] [place] [address] Historical LMR Provider 06/09/17 2 documented as of this encounter Additional Source Comments The information contained in this document represents components of the legal health record. It is not the complete legal health record.[facility]
--- OUTSIDE RECORDS SUMMARY | 2025-05-07 15:23 | XMS_ITS | Encounter Summary ---
Author Organization [facility] Address [address] [place] [address] Phone Care Team Providers Care Commercial Loan Specialist Name Role Phone See Wan MD Unavailable Anay Bliss MD Unavailable [phone] Tammi Corral PA-C Unavailable [phone] David Patel DO Unavailable [phone] Demetrio Gonzales MD Unavailable Linette Echeverria PA-C Unavailable Cirilo Bernard MD Unavailable Akil Jenkins MD Unavailable [phone] Demetrio Gonzales MD Primary Care Provider Lucius Hannon MD Primary Care Provid er Encounter Details Date Type Department Care Team (Late st Contact Info) Description 08/10/2018 Procedure Pass [facility], [address] [address] Social History Tobacco Use Types Packs/Day Years [...] - Inhaled Oxygen Concentration - - Weight 78.9 kg (174 lb) 08/13/2018 12:26 PM EST Height 160 cm (5' 3 ) 08/13/2018 12:26 PM EST Body Mass Index 30.82 08/13/2018 12:26 PM EST documented in this encounter Plan of Treatment Upcoming Encounters Date Type Department Care Team (Late st Contact Info) Description 05/14/2025 8:00 AM EDT Office Visit [facility] Rheumatology [address] [place] [address] [place] [address] Anay Bliss MD 22 [facility], [address] [place] [address] [email or web address] 06/20/2025 8:00 AM EDT Office Visit [facility] Orthopedics & Sports Medicine [address] [place] [address] Cameron Hayward PA-C [address] [place] [address] [place] [address] [email or web address] 07/16/2025 Procedure Pass OR Admitting Dept - Virtual Department [address] [place] [address] 07/16/2025 7:30 AM EST Hospital Encounter OR Admitting Dept - Virtual Department [address] [place] [address] David Patel DO [address] [place] [address] Orthopedics & Sports [place], [place] [address] 07/16/2025 7:30 AM EST - 07/16/2025 9:55 AM EST Surgery OR Admitting Dept - Virtual Department [address] [place] [address] David Patel DO [address] [place] [address] Orthopedics & Sports [place], [place] [address] [email or web address] ARTHROPLASTY ANATOMIC INVERSE SHOULDER 08/01/2025 8:00 AM EST Office Visit [facility] Orthopedics & Sports Medicine [address] [place] [address] Cameron Hayward PA-C [address] [place] [address] [place] [address] [email or web address] 08/29/2025 9:00 AM EST Office Visit [facility] Orthopedics & Sports [address] [address] David Patel DO [address] [place] [address] Orthopedics & Sports [facility], [place] [address] Scheduled Procedures Name Priority Associated Diagnoses Date/Ti me ARTHROPLASTY ANATOMIC INVERSE SHOULDER Instability of prosthetic shoulder joint, sequela 07/16/2025 7:30 AM EST documented as of this encounter Visit Diagnoses Not on filedocumented in this encounter Care Teams Commercial Loan Specialist Relationship Specialty Start Date End Date Demetrio Gonzales MD [address] [place] [address] PCP - General 06/10/17 11/26/24 Lucius Hannon MD [address] [place] [address] [place] [address] PCP - General Internal Medicine 11/27/24 See Wan MD [address] [place] [address] [phone] [email or web address] Historical LMR Provider 06/09/17 Anay Bliss MD 22 [facility], [address] [place] [address] Historical LMR Provider 06/09/17 Tammi Corral PA-C [address] [place] [address] Orthopedics & Sports [facility], [place] [address] Historical LMR Provider 06/09/17 08/30/21 David Patel DO [address] [place] [address] Orthopedics Sports [facility], [place] [address] Historical LMR Provider 06/09/17 Demetrio Gonzales MD [address] [place] [address] [facility] [place] [address] Historical LMR Provider 06/09/17 2 Linette Echeverria PA-C [address] [place] [address] Orthopedics Sports [facility], [place] [address] Historical LMR Provider 06/09/17 08/30/21 Cirilo Bernard MD 22 [facility], [address] [place] [address] Historical LMR Provider 06/09/17 08/30/21 Akil Jenkins MD [address] [place] [address] Historical LMR Provider 06/09/17 2 documented as of this encounter Additional Source Comments The information contained in this document represents components of the legal health record. It is not the complete legal health record.[facility]
--- OUTSIDE RECORDS SUMMARY | 2025-05-07 15:23 | XMS_ITS | Encounter Summary ---
Author Organization [facility] Address [address] [place] [address] Phone Care Team Providers Care Wood Heel Cementer Name Role Phone See Wan MD Unavailable Anay Bliss MD Unavailable Tammi Corral PA-C Unavailable [phone] David Patel DO Unavailable [phone] Demetrio Gonzales MD Unavailable Linette Echeverria PA-C Unavailable Cirilo Bernard MD Unavailable [phone] Akil Jenkins MD Unavailable [phone] Demetrio Gonzales MD Primary Care Provider Lucius Hannon MD Primary Care Provid er Encounter Details Date Type Department Care Team (Latest Contact Info) Description 09/28/2018 Transcribe Orders [facility] [address] [place] [address] [phone] Tee Oneal MD [address] [place] [address], [address] [place] [address] [email or web address] Nonintractable headache, unspecified chronicity pattern, unspecified [...] Description 05/14/2025 8:00 AM EDT Office Visit [facility] Rheumatology [address] [place] [address] Anay Bliss MD [address] [place] [address], [address] [place] [address] [email or web address] 06/20/2025 8:00 AM EDT Office Visit [facility] Orthopedics & Sports Medicine [address] [place] [address] Cameron Hayward PA-C [address] [place] [address] [place] [address] [email or web address] 07/16/2025 Procedure Pass OR Admitting Dept - Virtual Department [address] [place] [address] 07/16/2025 7:30 AM EST Hospital Encounter OR Admitting Dept - Virtual Department [address] [place] [address] David Patel DO [address] [place] [address] Orthopedics & Sports Medicine, [facility] [place] [address] 07/16/2025 7:30 AM EST - 07/16/2025 9:55 AM EST Surgery OR Admitting Dept - Virtual Department [address] [place] [address] David Patel DO [address] [place] [address] [facility] [place] [address] ARTHROPLASTY ANATOMIC INVERSE SHOULDER 08/01/2025 8:00 AM EST Office Visit [facility] Orthopedics & Sports Medicine [address] [place] [address] Cameron Hayward PA-C [address] [place] [address] [place] [address] [email or web address] 08/29/2025 9:00 AM EST Office Visit [facility] Orthopedics & Sports Medicine [address] [place] [address] David Patel DO [address] [place] [address] Orthopedics & Sports [facility], [place] [address] Scheduled Procedures Name Priority Associated Diagnoses Date/Ti me ARTHROPLASTY ANATOMIC INVERSE SHOULDER Instability of prosthetic shoulder joint, sequela 07/16/2025 7:30 AM EST documented as of this encounter Visit Diagnoses Diagnosis Nonintractable headache, unspecified chronicity pattern, unspecified headache type- Primary Instability of prosthetic shoulder joint, sequela documented in this encounter Care Teams Wood Heel Cementer Relationship Specialty Start Date End Date Demetrio Gonzales MD [address] [place] [address] [place] [address] PCP - General 06/10/17 11/26/24 Lucius Hannon MD [address] [place] [address] [place] [address] PCP - General Internal Medicine 11/27/24 See Wan MD [address] [place] [address] [phone] Historical LMR Provider 06/09/17 Anay Bliss MD 22 [facility], [address] [place] [address] Historical LMR Provider 06/09/17 Tammi Corral PA-C [address] [place] [address] Orthopedics Sports [facility], [place] [address] Historical LMR Provider 06/09/17 08/30/21 David Patel DO [address] [place] [address] Orthopedics Sports [facility], [place] [address] [email or web address] Historical LMR Provider 06/09/17 Demetrio Gonzales MD [address] [place] [address] [place] [address] Historical LMR Provider 06/09/17 Linette Patel PA-C [address] [place] [address] Orthopedics Sports [facility], [place] [address] Historical LMR Provider 06/09/17 08/30/21 Cirilo Bernard MD 22 [facility], [address] [place] [address] Historical LMR Provider 06/09/17 08/30/21 Akil Jenkins MD [address] [place] [address] Historical LMR Provider 06/09/17 2 documented as of this encounter Additional Source Comments The information contained in this document represents components of the legal health record. It is not the complete legal health record.[facility]
--- OUTSIDE RECORDS SUMMARY | 2025-05-07 15:23 | XMS_ITS | Encounter Summary ---
Author Organization [facility] Address [address] [place] [address] Phone Care Team Providers Care Tank Officer Name Role Phone See Wan MD Unavailable [phone] Anay Bliss MD Unavailable Tammi Corral PA-C Unavailable [phone] David Patel DO Unavailable Demetrio Gonzales MD Unavailable [phone] Linette Echeverria PA-C Unavailable Cirilo Bernard MD Unavailable Akil Jenkins MD Unavailable [phone] Demetrio Gonzales MD Primary Care Provider Lucius Hannon MD Primary Care Provid er Encounter Details Date Type Department Care Team (Latest Contact Info) Description 11/04/2017 Transcribe Orders [facility] [address] [place], [place] [phone] Hayley Collins, HIV CTS SPECIALIST [address] [place] [address] 101 [place], [place] [phone] [email or web address] Nonintractable headache, unspecified chronicity pattern, unspecified headache type (Primary Dx) Social History Tobacco Use Types Packs/Day Years Used Date Smoking Tobacco: Never Smokeless Tobacco: Never Alcohol Use Standard Drinks/Week Comments Yes 1 (1 standard drink = 0.6 oz pur [...] Description 05/14/2025 8:00 AM EDT Office Visit [facility] Rheumatology [address] [place] [address] Anay Bliss MD [address] [place] [address], [address] [place] [address] [email or web address] 06/20/2025 8:00 AM EDT Office Visit [facility] Orthopedics & Sports Medicine [address] [place] [address] Cameron Hayward PA-C [address] [place] [address] [place] [address] [email or web address] 07/16/2025 Procedure Pass OR Admitting Dept - Virtual Department [address] [place] [address] 07/16/2025 7:30 AM EST Hospital Encounter OR Admitting Dept - Virtual Department [address] [place] [address] David Patel DO [address] [place] [address] Orthopedics & Sports Medicine, [facility] [place] [address] 07/16/2025 7:30 AM EST - 07/16/2025 9:55 AM EST Surgery OR Admitting Dept - Virtual Department [address] [place] [address] David Patel DO [address] [place] [address] Orthopedics & Sports [facility] [place] [address] ARTHROPLASTY ANATOMIC INVERSE SHOULDER 08/01/2025 8:00 AM EST Office Visit [facility] Orthopedics & Sports [address] [address] Cameron Hayward PA-C [address] [place] [address] [place] [address] [email or web address] 08/29/2025 9:00 AM EST Office Visit [facility] Orthopedics & Sports [address] [phone] David Patel DO [address] [place] [address] Orthopedics & Sports [facility], [place] [address] Scheduled Procedures Name Priority Associated Diagnoses Date/Ti wi ARTHROPLASTY ANATOMIC INVERSE SHOULDER Instability of prosthetic shoulder joint, sequela 07/16/2025 7:30 AM EST documented as of this encounter Results * CBC (11/04/2017 9:10 AM EDT) WBC 4.31 3.40 - 11.20 K/uL [facility] RBC 4.47 3.80 - 4.80 M/uL [facility] HGB 14.1 12.0 - 15.0 g/dL [facility] HCT 41.0 36.0 - 46.0 % [facility] PLT 184 130 - 400 K/uL [facility] MCV 91.7 79.0 - 98.0 fL [facility] MCH 31.5 27.0 - 34.8 pg [facility] MCHC 34.4 31.5 - 36.0 g/dL [facility] RDW 12.4 10.8 - 14.6 % [facility] MPV 10.3 9.4 - 12.4 fl [facility] NRBC 0.00 /100 WBCs [facility] ABSOLUTE NRBC 0.00 K/uL [facility] Blood 11/04/2017 9:10 AM EDT 11/04/2017 9:14 AM EDT us Hayley Collins HIV CTS SPECIALIST LAB BLOOD ORDERABLES Fin al Result Performing Organization Address [facility] Co de Phone Number [address] [address] * LFTs (hepatic panel) (11/04/2017 9:10 AM EDT) ALKALINE PHOSPHATASE 65 39 - 117 U/L [facility] TOTAL BILIRUBIN 0.3 0.0 - 1.2 mg/dL [facility] DIRECT BILIRUBIN <0.2 0 - 0.3 mg/dL [facility] Bilirubin (Indirect) NOT CALCULATED 0 - 1.5 mg/dL [facility] AST 21 0 - 37 U/L [facility] ALT 16 0 - 40 U/L [facility] TOTAL PROTEIN 6.8 6.5 - 8.0 g/dL [facility] ALBUMIN 3.9 3.9 - 4.8 g/dL [facility] GLOBULIN 2.9 1 - 4.8 g/dL [facility] A/G Ratio 1.34 1.00 - 4.80 RATIO [facility] Blood 11/04/2017 9:10 AM EDT 11/04/2017 9:14 AM EDT us Hayley Collins HIV CTS SPECIALIST LAB BLOOD ORDERABLES Fin al Result Performing Organization Address [facility] Co de Phone Number [address] [address] documented in this encounter Visit Diagnoses Diagnosis Nonintractable headache, unspecified chronicity pattern, unspecified headache type- Primary Instability of prosthetic shoulder joint, sequela documented in this encounter Care Teams Tank Officer Relationship Specialty Start Date End Date Demetrio Gonzales MD [address] [place] [address] [place] [address] PCP - General 06/10/17 11/26/24 Lucius Hannon MD [address] [place] [address] PCP - General Internal Medicine 11/27/24 See Wan MD [address] [place] [address] [email or web address] Historical LMR Provider 06/09/17 Anay Bliss MD [address] [place] [address], [address] [place] [address] [email or web address] Historical LMR Provider 06/09/17 Tammi Corral PA-C [address] [place] [address] Orthopedics Sports [facility], [place] [address] Historical LMR Provider 06/09/17 08/30/21 David Patel DO [address] [place] [address] Orthopedics Sports [facility], [place] [address] Historical LMR Provider 06/09/17 Demetrio Gonzales MD [address] [place] [address] Historical LMR Provider 06/09/17 2 Linette Echeverria PA-C [address] [place] [address] Orthopedics Sports [facility], [place] [address] Historical LMR Provider 06/09/17 08/30/21 Cirilo Bernard MD [address] [place] [address] [email or web address] Historical LMR Provider 06/09/17 08/30/21 Akil Jenkins MD [address] [place] [address] Historical LMR Provider 06/09/17 2 documented as of this encounter Additional Source Comments The information contained in this document represents components of the legal health record. It is not the complete legal health record.[facility]
--- OUTSIDE RECORDS SUMMARY | 2025-05-07 15:23 | XMS_ITS | Encounter Summary ---
Author Organization [facility] Address [address] [place] [address] Phone Care Team Providers Care Aircraft Painter Apprentice Name Role Phone See Wan MD Unavailable Anay Bliss MD Unavailable Tammi Corral PA-C Unavailable [phone] David Patel DO Unavailable [phone] Demetrio Gonzales MD Unavailable [phone] Linette Echeverria PA-C Unavailable Cirilo Bernard MD Unavailable Akil Jenkins MD Unavailable [phone] Demetrio Gonzales MD Primary Care Provider Lucius Hannon MD Primary Care Provid er Reason for Referral * MRI/CAT Scan - Closed Specialty Diagnoses / Procedures Referred By Edmond leo Referred To Contact Radiology Diagnoses MS (multiple sclerosis) Procedures MRI Thoracic Spine Tee Oneal MD Phone: tel: fax: mailto: Referral ID Status Reason Start Date Expiration Date Visits Re quested Visits Authorized [id number] Closed 08/10/2018 11/08/2018 1 1 Encounter Details Date Type Department Care Team (Late st Contact Info) Description 08/10/2018 Ancillary Orders Virtual Department [address] [place] [address] Tee Oneal MD [address] [place] [address], [address] [place] [address] [email or web address] MS (multiple sclerosis) Social History Tobacco Use Types Packs/Day Years [...] Description 05/14/2025 8:00 AM EDT Office Visit [facility] [address] [place] [address] Anay Bliss MD [address] [place] [address], [address] [place] [address] [email or web address] 06/20/2025 8:00 AM EDT Office Visit [facility] [address] [place] [address] Cameron Hayward PA-C [address] [place] [address] [place] [address] [email or web address] 07/16/2025 Procedure Pass [place] Admitting Dept - Virtual Department [address] [place] [phone] 07/16/2025 7:30 AM EST Hospital Encounter [place] Admitting Dept - Virtual Department [address] [place] [address] David Patel DO [facility] [place] [address] 07/16/2025 7:30 AM EST - 07/16/2025 9:55 AM EST Surgery OR Admitting Dept - Virtual Department [address] [place] [address] David Patel DO [address] [place] [address] [facility] [place] [address] ARTHROPLASTY ANATOMIC INVERSE SHOULDER 08/01/2025 8:00 AM EST Office Visit [facility] [address] [place] [address] Cameron Hayward PA-C [address] [place] [address] [place] [address] [email or web address] 08/29/2025 9:00 AM EST Office Visit [facility] [address] [place] [address] David Patel DO [address] [place] [address] [facility] [place] [address] Scheduled Procedures Name Priority Associated Diagnoses Date/Ti me ARTHROPLASTY ANATOMIC INVERSE SHOULDER Instability of prosthetic shoulder joint, sequela 07/16/2025 7:30 AM EST documented as of this encounter Results * MRI THORACIC SPINE (NEURO) WITHOUT CONTRAST (08/20/2018 9:02 AM EST) Anatomical Region Laterality Modality T-spine Magnetic Resonan ce 08/20/2018 4:20 PM EST Impressions 08/20/2018 4:50 PM EST No spinal cord lesions identified to suggest demyelinating disease. POS - [id number] Narrative 08/20/2018 4:50 PM EST EXAM: MRI THORACIC SPINE (NEURO) WITHOUT INTRAVENOUS CONTRAST COMPARISON: Thoracic spine MRI on October 19, 2009. Abdomen/pelvis CT on August 06, 2018 HISTORY: MS (multiple sclerosis) TECHNIQUE: Exam performed on a 1.5 Cha high-field MRI scanner. Magnetic resonance imaging of the thoracic spine was performed WITHOUT injected contrast using standard department protocols. FINDINGS: ALIGNMENT: Anatomic alignment is maintained. No anterior or posterior subluxations. VERTEBRAL BODIES: Vertebral body heights are maintained. Small Schmorl's nodes at T10, T12 and L1. Bone marrow signal pattern is within normal limits. INTERVERTEBRAL DISCS: Normal height and signal intensity. SPINAL CORD: Included spinal cord has normal caliber and signal characteristics. Level by level analysis yields the following: Bulging discs at C6-C7, C7-T1, T9-T10, T11-T12 and T12-L1. Central disc protrusion at T2-T3. No significant canal or neuroforaminal stenosis along the thoracic spine. OTHERS:Small 1.4 cm liver lesion was better appreciated on the prior abdominal CT study, and also present on the prior 2010 study. Posterior paraspinal soft tissues are unremarkable. Procedure Note Tyson Ramos MD - 08/20/2018 EXAM: MRI THORACIC SPINE (NEURO) WITHOUT INTRAVENOUS CONTRAST COMPARISON: Thoracic spine MRI on October 19, 2009. Abdomen/pelvis CT onDe2017 HISTORY: MS (multiple sclerosis) TECHNIQUE: Exam performed on a 1.5 Cha high-field MRI scanner. Magneticresonance imaging of the thoracic spine was performed WITHOUT injectedcontrast using standard department protocols. FINDINGS: ALIGNMENT: Anatomic alignment is maintained. No anterior or posteriorsubluxations. VERTEBRAL BODIES: Vertebral body heights are maintained. Small Schmorl'snodes at T10, T12 and L1. Bone marrow signal pattern is within normallimits. INTERVERTEBRAL DISCS: Normal height and signal intensity. SPINAL CORD: Included spinal cord has normal caliber and signalcharacteristics. Level by level analysis yields the following: Bulging discs at C6-C7, C7-T1, T9-T10, T11-T12 and T12-L1. Central discprotrusion at T2-T3. No significant canal or neuroforaminal stenosis alongthe thoracic spine. OTHERS:Small 1.4 cm liver lesion was better appreciated on the priorabdominal CT study, and also present on the prior 2010 study. Posteriorparaspinal soft tissues are unremarkable. IMPRESSION: No spinal cord lesions identified to suggest demyelinating disease. POS - [id number] Tee Oneal MD IMG MR XSPECIALTY Final Resu lt documented in this encounter Visit Diagnoses Diagnosis MS (multiple sclerosis) Multiple sclerosis MS (multiple sclerosis) Multiple sclerosis Instability of prosthetic shoulder joint, sequela documented in this encounter Care Teams Aircraft Painter Apprentice Relationship Specialty Start Date End Date Demetrio Gonzales MD [address] [place] [phone] PCP - General 06/10/17 11/26/24 Lucius Hannon MD [address] [place] [address] PCP - General Internal Medicine 11/27/24 See Wan MD [address] [place] [address] [email or web address] Historical LMR Provider 06/09/17 Anay Bliss MD [address] [place] [address], [address] [place] [address] Historical LMR Provider 06/09/17 Tammi Corral PA-C [address] [place] [address] Orthopedics [facility] Sports Medicine, [place] [address] [email or web address] Historical LMR Provider 06/09/17 08/30/21 David Patel DO [facility], [place] [address] [email or web address] Historical LMR Provider 06/09/17 Demetrio Gonzales MD [address] [place] [address] [place] [address] Historical LMR Provider 06/09/17 2 Linette Echeverria PA-C [facility], [place], [place] [id number] [email or web address] Historical LMR Provider 06/09/17 08/30/21 Cirilo Bernard MD [address] [place] [address] Historical LMR Provider 06/09/17 08/30/21 Akil Jenkins MD [address] [place] [address] Historical LMR Provider 06/09/17 2 documented as of this encounter Additional Source Comments The information contained in this document represents components of the legal health record. It is not the complete legal health record.[facility]
--- OUTSIDE RECORDS SUMMARY | 2025-05-07 15:23 | XMS_ITS | Clinical Summary ---
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 Active amLODIPine (NORVASC) 10 MG tablet Take 10 mg by mouth daily. 04/21/20 18 Active fluticasone-salmet ester (ADVAIR DISKUS) 250-50 mcg/dose DISKUS Inhale 1 puff into the lungs 2 (two) times a day as needed. Active aspirin 81 MG EC tablet Take 81 mg by mouth daily. Active rosuvastatin (CRESTOR) 10 MG tablet Take 10 mg by mouth daily. 10/02/19 20 Active lisinopril (PRINIVIL,ZESTRIL) 5 MG tablet Take 5 mg by mouth daily. 02/02/20 20 Active triamterene-hydroC HLOROthiazide (MAXZIDE-25) 37.5-25 mg per tablet Take 1 tablet by mouth daily. 04/18/20 Active carisoprodol (SOMA) 350 MG tablet Take 350 mg by mouth daily as needed. 05/13/20 Active carBAMazepine (CARBATROL) 100 mg 12 hr capsule Take 100 mg by mouth. 03/24/20 Active oxybutynin (DITROPAN XL) 15 MG 24 hr tablet Take 1 tablet by mouth daily. 09/18/19 Active omeprazole (PRILOSEC) 40 MG capsule Take 40 mg by mouth daily as needed. 10/14/19 Active albuterol 90 mcg/actuation inhaler 01/28/20 Active hyoscyamine (LEVBID) 0.375 mg 12 hr tablet Take 1 tablet by mouth 2 (two) times a day. 09/08/19 Active psyllium (METAMUCIL) 0.4 gram capsule Take 1.2 g by mouth daily. Active traMADoL (ULTRAM) 50 mg tablet Take 1-2 tablets (50-100 mg total) by mouth every 8 (eight) hours as needed for pain (specific location in comments). 5 tablet 02/06/20 23 Active Additional Information Patient taking differently:50-100 mg Oral2 times daily PRN, pain (specific location in comments), Reported on 11/08/2024 divalproex (DEPAKOTE ER) 500 MG ER 24 hr tablet Take 1,000 mg by mouth daily. 12/02/19 24 Active nabumetone (RELAFEN) 500 MG tabletIndications: Primary osteoarthritis involving multiple joints,Personal history of calcium pyrophosphate deposition disease (CPPD) take 1 tablet by mouth twice daily 180 tablet 1 05/22/20 24 Active colchicine (COLCRYS) 0.6 mg tabletIndications: Idiopathic chronic gout of multiple sites without tophus TAKE 1 TABLET BY MOUTH AT FIRST SIGN OF ATTACK, OK TO REPEAT IN 1 HOUR IF NOT BETTER 30 tablet 2 06/19/20 24 Active Active Problems Problem Noted Date Diagnosed Date NSAID long-term use 11/08/2024 Assessment & Plan (11/08/2024 8:03 AM EDT): Take the lowest dose, with least frequency, for shortest time. Remember to take it always with food. Favor topical over oral preparations. On statin therapy 11/08/2024 Assessment & Plan (11/08/2024 8:10 AM EDT): Monitor for muscle tenderness, swelling and weakness Osteopenia of neck of right femur 11/08/2024 Assessment & Plan (11/08/2024 8:28 AM EDT): Proper calcium vitamin D supplementation, fall and fracture prevention strategy, daily weightbearing exercises encouraged to slow the progression of osteopenia. Esophageal reflux 01/30/2024 Dysphagia 01/30/2024 Benign neoplasm of stomach 01/30/2024 Dupuytren's disease of both palm and finger without contracture 10/06/2023 Assessment & Plan (11/08/2024 8:02 AM EDT): Use warm packs followed by baby oil or gentle moisturizer in a circular, spiral or motion starting from the proximal crease toward the distal end of fingers. Assessment & Plan (04/10/2024 8:22 AM EDT): Use warm packs followed by baby oil or gentle moisturizer in a circular, spiral or motion starting from the proximal crease toward the distal end of fingers. Assessment & Plan (10/06/2023 8:36 AM EST): Use warm packs followed by baby oil or gentle moisturizer in a circular, spiral or motion starting from the proximal crease toward the distal end of fingers. Tenosynovitis, de Quervain 09/29/2021 Assessment & Plan (09/29/2021 11:21 AM EST): Examples of exercises with pictures and detailed instructions printed for home use after using warm pack. Continue splinting and use assistive devices as needed. May need to consider formal OT if symptoms do not improve. She may benefit from topical Arnica, Voltaren versus medicated patches such as Salonpas or IcyHot patch. Aspirin long-term use 12/29/2018 Assessment & Plan (11/08/2024 8:03 AM EDT): Avoid falls, injuries and cuts. Monitor for excessive bruising and bleeding. Assessment & Plan (04/10/2024 8:01 AM EDT): Avoid falls, injuries and cuts. Monitor for excessive bruising and bleeding. Assessment & Plan (10/06/2023 8:14 AM EST): Avoid falls, injuries and cuts. Monitor for excessive bruising and bleeding. Assessment & Plan (04/06/2022 8:32 AM EDT): Avoid falls, injuries and cuts. Monitor for excessive bruising and bleeding. Assessment & Plan (09/29/2021 11:05 AM EST): Avoid falls, injuries and cuts. Monitor for excessive bruising and bleeding. Assessment & Plan (04/21/2021 12:34 PM EDT): Avoid falls, injuries and cuts. Monitor for excessive bruising and bleeding. Assessment & Plan (10/14/2020 8:44 AM EST): Avoid falls, injuries and cuts. Monitor for excessive bruising and bleeding. Assessment & Plan (03/04/2020 8:07 AM EDT): Avoid falls, injuries and cuts. Monitor for excessive bruising and bleeding. Assessment & Plan (10/26/2019 8:39 AM EST): Avoid falls, injuries and cuts. Monitor for excessive bruising and bleeding. Assessment & Plan (07/03/2019 8:50 AM EST): Avoid falls, injuries and cuts. Monitor for excessive bruising and bleeding. Primary osteoarthritis involving multiple joints 09/01/2017 Assessment & Plan (11/08/2024 8:02 AM EDT): Chronic, intermittent stiffness, pain at 5/10. Diffuse swelling within the hands and tenderness to palpation with entirely normal lab work. Joint protection, energy conservation. Avoid falls, injuries, overuse. Keep body weight in ideal range for her height. Continue gentle, regular exercising Topical cream versus patch 2-3 times daily or at least at bedtime x 3 weeks as needed. Due to hyponatremia and hypochloremia I am asking her to limit and if possible stop nabumetone. When she switched to the meloxicam she did not find it helpful either. I explained to her that since her inflammatory indices are normal she may not benefit from any nonsteroidal anti-inflammatories by mouth and incurable more electrolyte abnormalities and risk renal insufficiency with ongoing chronic use in addition to gastritis. I suggested her to switch over to topicals such as Arnica, Biofreeze, Mosotho dream versus medicated patches such as Salonpas or IcyHot patch and Tylenol Call if worse or with questions/problems. Get labs [facility] Another option may be building up the dose of Cymbalta versus adding/switching to gabapentin Assessment & Plan (04/10/2024 8:35 AM EDT): Chronic, intermittent stiffness, pain at 5/10. Diffuse swelling within the hands and tenderness to palpation with entirely normal lab work. Joint protection, energy conservation. Avoid falls, injuries, overuse. Keep body weight in ideal range for her height. Continue gentle, regular exercising Topical cream versus patch 2-3 times daily or at least at bedtime x 3 weeks as needed. Due to hyponatremia and hypochloremia I am asking her to limit and if possible stop nabumetone. When she switched to the meloxicam she did not find it helpful either. I explained to her that since her inflammatory indices are normal she may not benefit from any nonsteroidal anti-inflammatories by mouth and incurable more electrolyte abnormalities and risk renal insufficiency with ongoing chronic use in addition to gastritis. I suggested her to switch over to topicals such as Arnica, Biofreeze, Mosotho dream versus medicated patches such as Salonpas or IcyHot patch and Tylenol Call if worse or with questions/problems. Get labs prior to next visit-[facility] Another option may be building up the dose of Cymbalta versus adding/switching to gabapentin Assessment & Plan (10/06/2023 8:35 AM EST): Chronic, intermittent stiffness, pain at 5/10. Joint protection, energy conservation. Avoid falls, injuries, overuse. Keep body weight in ideal range for her height. Continue gentle, regular exercising Topical cream versus patch 2-3 times daily or at least at bedtime x 3 weeks as needed. Due to hyponatremia and hypochloremia I am asking her to limit and if possible. Likely stop nabumetone. Once she runs out of current supply we are switching it to meloxicam 7.5 mg no more than alternating twice daily every other day with once daily with food. Remember to take it always with food and keep well-hydrated especially when taking it regularly. Call if worse or with questions/problems. Get labs prior to next visit[facility] Another option may be building up the dose of Cymbalta versus adding/switching to gabapentin Assessment & Plan (04/05/2023 8:04 AM EDT): Joint protection, energy conservation. Avoid falls, injuries, overuse. Keep body weight in ideal range for her height. Continue gentle, regular exercising Topical cream versus patch 2-3 times daily or at least at bedtime x 3 weeks as needed. Retry tapering nabumetone when feeling better. Remember to take it always with food and keep well-hydrated especially when taking it regularly. Call if worse or with questions/problems. Get labs prior to next visit For the [id number]-fwe-[id number] sensation in her fingertips with numbness that wakes her up at night I suggested her carefully to try on the 1 finger Zostrix (capsaicin) every night for 2-3 weeks to deplete substance P and hopefully reduce paresthesia Another option may be building up the dose of Cymbalta versus adding/switching to gabapentin Assessment & Plan (10/08/2022 8:07 AM EST): Joint protection, energy conservation. Avoid falls, injuries, overuse. Keep body weight in ideal range for her height. Continue gentle, regular exercising Topical cream versus patch 2-3 times daily or at least at bedtime x 3 weeks as needed. Retry tapering nabumetone when feeling better. Remember to take it always with food and keep well-hydrated especially when taking it regularly. Call if worse or with questions/problems. Get labs prior to next visit For the rfha-uiw-hvgfyea sensation in her fingertips with numbness that wakes her up at night I suggested her carefully to try on the 1 finger Zostrix (capsaicin) every night for 2-3 weeks to deplete substance P and hopefully reduce paresthesia Another option may be building up the dose of Cymbalta versus adding/switching to gabapentin Assessment & Plan (04/26/2022 7:50 PM EDT): Joint protection, energy conservation. Avoid falls, injuries, overuse. Keep body weight in ideal range for her height. Continue gentle, regular exercising Topical cream versus patch 2-3 times daily or at least at bedtime x 3 weeks as needed. Retry tapering nabumetone when feeling better. Remember to take it always with food and keep well-hydrated especially when taking it regularly. Call if worse or with questions/problems. Get labs prior to next visit For the fsbc-fhr-yndtmej sensation in her fingertips with numbness that wakes her up at night I suggested her carefully to try on the 1 finger Zostrix (capsaicin) every night for 2-3 weeks to deplete substance P and hopefully reduce paresthesia Another option may be building up the dose of Cymbalta versus adding/switching to gabapentin Assessment & Plan (09/29/2021 11:05 AM EST): Joint protection, energy conservation. Avoid falls, injuries, overuse. Keep body weight in ideal range for her height. Continue gentle, regular exercising Topical cream versus patch 2-3 times daily or at least at bedtime x 3 weeks as needed. Retry tapering nabumetone when feeling better. Remember to take it always with food and keep well-hydrated especially when taking it regularly. Call if worse or with questions/problems. Get labs prior to next visit Assessment & Plan (04/21/2021 12:32 PM EDT): Joint protection, energy conservation. Avoid falls, injuries, overuse. Keep body weight in ideal range for her height. Continue gentle, regular exercising Topical cream versus patch 2-3 times daily or at least at bedtime x 3 weeks as needed. Retry tapering nabumetone when feeling better. Remember to take it always with food and keep well-hydrated especially when taking it regularly. Call if worse or with questions/problems. Get labs prior to next visit Assessment & Plan (10/14/2020 8:47 AM EST): Joint protection, energy conservation. Avoid falls, injuries, overuse. Keep body weight in ideal range for her height. Continue gentle, regular exercising Topical cream versus patch 2-3 times daily or at least at bedtime x 3 weeks as needed. Retry tapering nabumetone when feeling better. Remember to take it always with food and keep well-hydrated especially when taking it regularly. Call if worse or with questions/problems. Get labs prior to next visit Assessment & Plan (07/03/2020 8:11 AM EST): Joint protection, energy conservation. Avoid falls, injuries, overuse. Keep body weight in ideal range for her height. Continue gentle, regular exercising Topical cream versus patch 2-3 times daily or at least at bedtime x 3 weeks as needed. Retry tapering nabumetone when feeling better. Remember to take it always with food and keep well-hydrated especially when taking it regularly. Call if worse or with questions/problems. Get labs prior to next visit Assessment & Plan (03/04/2020 8:07 AM EDT): Joint protection, energy conservation. Avoid falls, injuries, overuse. Keep body weight in ideal range for her height. Continue gentle, regular exercising Topical cream versus patch 2-3 times daily or at least at bedtime x 3 weeks as needed. Retry tapering nabumetone when feeling better. Remember to take it always with food and keep well-hydrated especially when taking it regularly. Call if worse or with questions/problems. Get labs prior to next visit Assessment & Plan (10/29/2019 7:13 PM EDT): Joint protection, energy conservation. Avoid falls, injuries, overuse. Keep body weight in ideal range for her height. Continue gentle, regular exercising Topical cream versus patch 2-3 times daily or at least at bedtime x 3 weeks as needed. Retry tapering nabumetone when feeling better. Remember to take it always with food and keep well-hydrated especially when taking it regularly. Call if worse or with questions/problems. Get labs prior to next visit Assessment & Plan (07/03/2019 8:50 AM EST): Get labs today Joint protection, energy conservation. Avoid falls, injuries, overuse. Keep body weight in ideal range for her height. Continue gentle, regular exercising Topical cream versus patch 2-3 times daily or at least at bedtime x 3 weeks as needed. Personal history of calcium pyrophosphate deposition disease (CPPD) 09/01/2017 Assessment & Plan (11/08/2024 8:02 AM EDT): Reviewed strategy for preventing and dealing with acute attack in details Assessment & Plan (04/10/2024 8:00 AM EDT): Reviewed strategy for preventing and dealing with acute attack in details Assessment & Plan (10/06/2023 8:11 AM EST): Reviewed strategy for preventing and dealing with acute attack in details Assessment & Plan (04/05/2023 8:03 AM EDT): Reviewed strategy for preventing and dealing with acute attack in details Assessment & Plan (10/08/2022 8:06 AM EST): Reviewed strategy for preventing and dealing with acute attack in details Assessment & Plan (04/06/2022 8:31 AM EDT): Reviewed strategy for preventing and dealing with acute attack in details Assessment & Plan (09/29/2021 11:05 AM EST): Reviewed strategy for preventing and dealing with acute attack in details Assessment & Plan (04/21/2021 12:32 PM EDT): Reviewed strategy for preventing and dealing with acute attack in details Assessment & Plan (10/19/2020 9:47 PM EST): Reviewed strategy for preventing and dealing with acute attack in details Assessment & Plan (07/03/2020 8:11 AM EST): Reviewed strategy for preventing and dealing with acute attack in details Assessment & Plan (03/04/2020 8:06 AM EDT): Reviewed strategy for preventing and dealing with acute attack in details Assessment & Plan (10/26/2019 8:38 AM EST): Reviewed strategy for preventing and dealing with acute attack in details Assessment & Plan (07/03/2019 8:49 AM EST): Reviewed strategy for preventing and dealing with acute attack in details Arthritis Asthma Hypertension Pain of lumbar spine Resolved Problems Problem Noted Date Diagnosed Date Resolved Date Gastritis 01/30/2024 08/24/2024 Postmenopausal 10/06/2023 08/24/2024 Assessment & Plan (10/06/2023 8:36 AM EST): Restart regular weightbearing exercises up to the goal of 45-60 minutes daily. Proper calcium vitamin D supplementation. Fall and fracture prevention strategies reviewed and strongly encouraged. Interval BMD requested. Hyponatremia 10/06/2023 08/24/2024 Assessment & Plan (10/06/2023 8:37 AM EST): New values requested on her way out from the office today. Hypochloremia 10/06/2023 08/24/2024 Dupuytren contracture 10/06/20232024 Hematuria 04/06/2022 08/24/2024 Postmenopausal bleeding 03/18/2022/09/2024 Overview (05/26/2022): Spotting seen only on wiping after voiding Status post hysteroscopy in 2017 with benign inactive endometrium on pathology On daily baby aspirin, no other anticoagulants Endometrial biopsy: No tissue returned (uterus sounded to 7 cm) Ultrasound only 2 mm endometrial lining Assessment & Plan (05/26/2022 2:50 PM EDT): Advised I do not see the need for any additional attempted tissue sampling. Suspect that the bleeding is originating from the urological tract. Would be an option to have another D&C hysteroscopy if bleeding is ongoing and no other cause found, I think however it is very likely there is any pathology in the Assessment & Plan (03/18/2022 11:05 AM EDT): Endometrial sampling done today although it is doubtful that there was any actual tissue in the [place]. I am certain the catheter was in the uterine cavity at 7 cm Sonohysterogram ordered Class 1 obesity due to exces s calories without serious comorbidity with body mass index (BMI) of 31.0 to 31.9 in adult 10/14/2020 Assessment & Plan (04/06/2022 8:32 AM EDT): Portion control. Limit concentrated sugars, saturated fats and calories in the diet. Keep well-hydrated. If unable to achieve expected goal consider formal dietary/nutritional support. Assessment & Plan (09/29/2021 11:06 AM EST): .Portion control. Limit concentrated sugars, saturated fats and calories in the diet. Keep well-hydrated. If unable to achieve expected goal consider formal dietary/nutritional support. Assessment & Plan (04/21/2021 12:33 PM EDT): Portion control. Limit concentrated sugars, saturated fats and calories in the diet. Keep well-hydrated. If unable to achieve expected goal consider formal dietary/nutritional support. Assessment & Plan (10/19/2020 9:48 PM EST): Portion control. Limit concentrated sugars, saturated fats and calories in the diet. Keep well-hydrated. If unable to achieve expected goal consider formal dietary/nutritional support. Trigeminal neuralgia of right side of face 10/26/2019 08/24/2024 Assessment & Plan (04/21/2021 12:32 PM EDT): Continue Carbamazepine as prescribed. Regular meditation/relaxation sessions Keep well hydrated Sleep hygiene Assessment & Plan (10/14/2020 8:46 AM EST): Continue Carbamazepine as prescribed. Regular meditation/relaxation sessions Keep well hydrated Sleep hygiene Assessment & Plan (07/03/2020 8:12 AM EST): Continue Carbamazepine as prescribed. Regular meditation/relaxation sessions Keep well hydrated Sleep hygiene Assessment & Plan (03/04/2020 8:03 AM EDT): Continue Carbamazepine as prescribed. Regular meditation/relaxation sessions Keep well hydrated Sleep hygiene Assessment & Plan (10/26/2019 8:47 AM EST): Continue Carbamazepine as prescribed. Regular meditation/relaxation sessions Keep well hydrated Sleep hygiene Left knee pain 03/31/2019 08/24/2024 Paresthesia 07/11/2018 08/24/2024 Right hip pain 02/28/2018 08/24/2024 Acute right-sided low back pain 02/28/2018 08/24/2024 Primary osteoarthritis of left shoulder 12/27/2017 08/24/2024 penitentiary current use of opiate analgesic 12/08/2017 08/24/2024 Assessment & Plan (04/06/2022 8:33 AM EDT): Take exactly as prescribed, try to limit frequency by employing non-for pharmacologic measures such as topical creams, warm packs, patches, regular relaxation/mediation/positive imagery sessions etc. Build up regular exercise routine up to the goal of 30-45 minutes daily. Monitor for increasing shortness of breath, reduced respiratory drive, increasing constipation Assessment & Plan (09/29/2021 11:06 AM EST): Take exactly as prescribed, try to limit frequency by employing non-for pharmacologic measures such as topical creams, warm packs, patches, regular relaxation/mediation/positive imagery sessions etc. Build up regular exercise routine up to the goal of 30-45 minutes daily. Monitor for increasing shortness of breath, reduced respiratory drive, increasing constipation Assessment & Plan (04/21/2021 12:33 PM EDT): Take exactly as prescribed, try to limit frequency by employing non-for pharmacologic measures such as topical creams, warm packs, patches, regular relaxation/mediation/positive imagery sessions etc. Build up regular exercise routine up to the goal of 30-45 minutes daily. Monitor for increasing shortness of breath, reduced respiratory drive, increasing constipation Assessment & Plan (10/14/2020 8:45 AM EST): Take exactly as prescribed, try to limit frequency by employing non-for pharmacologic measures such as topical creams, warm packs, patches, regular relaxation/mediation/positive imagery sessions etc. Build up regular exercise routine up to the goal of 30-45 minutes daily. Monitor for increasing shortness of breath, reduced respiratory drive, increasing constipation Assessment & Plan (07/03/2020 8:13 AM EST): Take the lowest dose, with least frequency, for shortest time. Remember to take it always with food. Favor topical over oral preparations. Postmenopausal bleeding 10/20/2017 12/04/2019 Assessment & Plan (10/26/2017 9:40 AM EST): Negative evaluation reviewed with patient. US today not concerning for endometrial structural abnormality. Offered trial of PO progesterone vs. LNG IUD vs. Hysterectomy as management options given persistent/extended bleeding. Megan would like to begin with Provera, rx sent to pharmacy. She will call office if bleeding persists after 10 day course. Assessment & Plan (10/20/2017 3:16 PM EST): Agree with recommendation for EMB, decision made to also do pap cytology as last was in 2013. US ordered to eval endometrium as well. Will have follow up appt to discuss plan of care. Primary localized osteoarthr osis of left shoulder region 10/04/2017 08/24/2024 Bilateral carpal tunnel syndrome 09/01/2017 08/24/2024 Assessment & Plan (10/08/2022 8:21 AM EST): Procedure: After an informed oral consent, under sterile conditions using Ethyl chloride spray for local anesthesia I have injected 30 mg DepoMedrol and 1.5 cc 1% Lidocaine into Right carpal tunnel uneventfully. Details of post-procedure care were explained to the patient in the office and given in writing. 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 Remember to take it always with food. Favor topical over oral preparations. Assessment & Plan (10/06/2023 8:11 AM EST): Take the lowest dose, with least frequency, for shortest time. Remember to take it always with food. Favor topical over oral preparations. Assessment & Plan (04/05/2023 8:04 AM EDT): Take the lowest dose, with least frequency, for shortest time. Remember to take it always with food. Favor topical over oral preparations. Assessment & Plan (10/08/2022 8:08 AM EST): Take the lowest dose, with least frequency, for shortest time. Remember to take it always with food. Favor topical over oral preparations. Assessment & Plan (04/06/2022 8:33 AM EDT): Take the lowest dose, with least frequency, for shortest time. Remember to take it always with food. Favor topical over oral preparations. Assessment & Plan (09/29/2021 11:06 AM EST): Take the lowest dose, with least frequency, for shortest time. Remember to take it always with food. Favor topical over oral preparations. Assessment & Plan (04/21/2021 12:33 PM EDT): Take the lowest dose, with least frequency, for shortest time. Remember to take it always with food. Favor topical over oral preparations. Assessment & Plan (10/14/2020 8:45 AM EST): Take the lowest dose, with least frequency, for shortest time. Remember to take it always with food. Favor topical over oral preparations. Assessment & Plan (07/03/2020 8:14 AM EST): Take the lowest dose, with least frequency, for shortest time. Remember to take it always with food. Favor topical over oral preparations. Assessment & Plan (03/04/2020 8:03 AM EDT): Take the lowest dose, with least frequency, for shortest time. Remember to take it always with food. Favor topical over oral preparations. Assessment & Plan (10/26/2019 8:39 AM EST): Take the lowest dose, with least frequency, for shortest time. Remember to take it always with food. Favor topical over oral preparations. Assessment & Plan (07/03/2019 8:51 AM EST): Take the lowest dose, with least frequency, for shortest time. Remember to take it always with food. Favor topical over oral preparations. On statin therapy 09/01/2017 08/24/2024 Assessment & Plan (04/06/2022 8:33 AM EDT): Monitor for muscle tenderness, swelling and weakness Assessment & Plan (09/29/2021 11:06 AM EST): Take the lowest dose, with least frequency, for shortest time. Remember to take it always with food. Favor topical over oral preparations. Assessment & Plan (04/21/2021 12:32 PM EDT): Monitor for muscle tenderness, swelling and weakness Assessment & Plan (10/14/2020 8:46 AM EST): Monitor for muscle tenderness, swelling and weakness Assessment & Plan (07/03/2020 8:13 AM EST): Monitor for muscle tenderness, swelling and weakness Assessment & Plan (03/04/2020 8:08 AM EDT): Monitor for muscle tenderness, swelling and weakness Assessment & Plan (10/26/2019 8:40 AM EST): Monitor for muscle tenderness, swelling and weakness Assessment & Plan (07/03/2019 8:51 AM EST): Monitor for muscle tenderness, swelling and weakness On selective serotonin reupt marian inhibitor (SSRI) therapy 09/01/2017 08/24/2024 Assessment & Plan (09/29/2021 11:06 AM EST): Monitor for mood swings, increased muscle rigidity and temperature intolerance. Assessment & Plan (04/21/2021 12:33 PM EDT): Monitor for mood swings, increased muscle rigidity and temperature intolerance. Assessment & Plan (10/14/2020 8:46 AM EST): Monitor for mood swings, increased muscle rigidity and temperature intolerance. Assessment & Plan (10/26/2019 8:40 AM EST): Monitor for mood swings, increased muscle rigidity and temperature intolerance. Assessment & Plan (07/03/2019 8:51 AM EST): Monitor for mood swings, increased muscle rigidity and temperature intolerance. History of total shoulder replacement 03/22/2017 08/24/2024 Erythema nodosum 08/24/2024 Lumbar herniated disc 2024 Overview (09/30/2017): L2-L3, L4-L5 Migraines 08/24/2024 Gout 08/24/2024 Encounters Date Type Department Care Team Description 04/25/2025 11:52 AM EDT - 04/25/2025 11:59 PM EDT Hospital Encounter [facility] [address] [place] [address] Tee Oneal MD Discharge Disposition: Home or Self Care 04/25/2025 Transcribe Orders [facility] [address] [place] [address] Tee Oneal MD Tension-type headache, not intractable, unspecified chronicity pattern (Primary Dx) 04/16/2025 1:31 PM EDT - 04/16/2025 11:59 PM EDT Hospital Encounter [facility] [address] [place] [phone] David Patel DO Discharge Disposition: Home or Self Care 04/12/2025 Telephone [facility] Orthopedics & Sports Medicine [address] [place] [phone] Keshia Elam RN preop labs 04/05/2025 10:00 AM EDT - 04/05/2025 11:59 PM EDT Hospital Encounter [facility] [address] [place] [id number] Tee Oneal MD Discharge Disposition: Home or Self Care 04/05/2025 Transcribe Orders [facility] [address] [place] [phone] Tee Oneal MD Other vascular headache (Primary Dx) 03/21/2025 11:00 AM EDT Office Visit [facility] Orthopedics & Sports Medicine [address] [place] [id number] David Patel, Instability of prosthetic shoulder joint, sequela (Primary Dx); Chronic left shoulder pain 03/14/2025 9:15 AM EDT - 03/14/2025 11:59 PM EDT Hospital Encounter [address] [address] Anay Bliss MD Discharge Disposition: Home or Self Care 03/12/2025 Refill [facility] Rheumatology [address] [place] [address] Lanette Perdomo CMA Medication Refill 03/09/2025 10:20 AM EDT - 03/09/2025 11:59 PM EDT Hospital Encounter [facility] [address] [place] [phone] Tee Oneal MD Discharge Disposition: Home or Self Care 03/09/2025 Transcribe Orders [address] [address] Tee Oneal MD Other complicated headache syndrome (Primary Dx); Numbness 02/22/2025 4:54 PM EDT - 02/22/2025 11:59 PM EDT Hospital Encounter [facility], Ct Scan - [facility] [address] [place] [address] David Patel, DO Discharge Disposition: Home or Self Care 02/14/2025 3:45 PM EDT Office Visit [facility] Orthopedics & Sports Medicine [address] [place] [address] David Patel, Pain (Primary Dx); Instability of prosthetic shoulder joint, sequela; Chronic left shoulder pain 02/14/2025 3:41 PM EDT - 02/14/2025 11:59 PM EDT Hospital Encounter [facility] [address] [place] [address] David Patel, DO Discharge Disposition: Home or Self Care 02/14/2025 Procedure Pass [facility], Ct Scan - [address] [address] from Last 3 Months Immunizations Immunization Administration Dates Next Due INFLUENZA, SPLIT VIRUS, TRIV ALENT W/ PRESERVATIVE IM 06/03/2020,05/24/2018,06/16/2017,2015,07/06/2015 Influenza Quadrivalent MDCK Preservative Free IM 05/24/2018 Influenza Quadrivalent Prese rvative Free IM 06/03/2020,06/16/2017,07/06/2015 Influenza, Unspecified Formulation 05/11/2019, Pneumococcal conjugate PCV13 08/22/2020 Tdap 01/29/2021 Zoster recombinant 02/29/2020,07/13/2019 Family History Medical History Relation Comments Myocarditis Father passed 94 Cancer Maternal Grandfather exact type unknown Diabetes mellitus Maternal Grandfather Hypertension Mother Stroke Mother Arthritis Unspecified Heart disease Unspecified Osteoporosis Unspecified Other Unspecified BLOOD CLOTS, SPI NE PROBLEMS Relation Status Comments Father Maternal Grandfather Mother (Age 84) Unspecified Social History Tobacco Use Types Packs/Day Years Used Date Smoking Tobacco: Never Smokeless Tobacco: Never Tobacco Cessation:Counseling Given: Not Answered Alcohol Use Standard Drinks/Week Comments Yes 2 [...] Orientation Straight 01/15/2023 7: 06 PM EDT Last Filed Vital Signs Vital Sign Reading Time Taken Comments Blood Pressure 140/78 11/08/2024 7:52 AM EDT Pulse 78 11/08/2024 7:52 AM EDT Temperature 36.7 C (98 F) 01/30/2024 9:13 AM EDT Respiratory Rate 16 01/30/2024 9:13 AM EDT Oxygen Saturation 96% 11/08/2024 7:5 2 AM EDT Inhaled Oxygen Concentration - - Weight 70.8 kg (156 lb) 11/08/2024 7:52 AM EDT patient reported Height 160 cm (5' 3 ) 11/08/2024 7:52 AM EDT Body Mass Index 27.63 11/08/2024 7:52 AM EDT Plan of Treatment Upcoming Encounters Date Type Department Care Team (Late st Contact Info) Description 05/14/2025 8:00 AM EDT Office Visit [facility] Rheumatology [address] [place] [address] [place] [address] Anay Bliss MD [address] [place] [address], [address] [place] [address] [email or web address] 06/20/2025 8:00 AM EDT Office Visit [facility] Orthopedics & Sports Medicine [address] [place] [phone] Cameron Hayward PA-C [address] [place] [address] [place] [phone] [email or web address] 07/16/2025 Procedure Pass OR Admitting Dept - Virtual Department [address] [place] [address] 07/16/2025 7:30 AM EST Hospital Encounter OR Admitting Dept - Virtual Department [address] [place] [phone] David Patel DO [address] [place] [address] Orthopedics & Sports [facility], [place] [address] 07/16/2025 7:30 AM EST - 07/16/2025 9:55 AM EST Surgery OR Admitting Dept - Virtual Department [address] [place] [phone] David Patel DO [address] [place] [address] Orthopedics & Sports [facility], [place] [address] ARTHROPLASTY ANATOMIC INVERSE SHOULDER 08/01/2025 8:00 AM EST Office Visit [facility] Orthopedics & Sports Medicine [address] [place] [address] Cameron Hayward PA-C [address] [place] [address] [place] [phone] [email or web address] 08/29/2025 9:00 AM EST Office Visit [facility] Orthopedics & Sports Medicine [address] [place] [address] David Patel DO [address] [place] [address] Orthopedics & Sports [facility], [place] [address] Scheduled Procedures Name Priority Associated Diagnoses Date/Ti me ARTHROPLASTY ANATOMIC INVERSE SHOULDER Instability of prosthetic shoulder joint, sequela 07/16/2025 7:30 AM EST Health Maintenance Due Date Last Done Comments CARBAMAZEPINE (TEGRETOL) LEVEL 1953 DEPRESSION SCREENING 1965 HEPATITIS C SCREENING 1971 COLOGUARD 1998 COLONOSCOPY 1998 COLORECTAL CANCER SCREENING 1998 FIT TEST 1998 FOBT 1998 SIGMOIDOSCOPY 1998 VIRTUAL COLONOSCOPY 1998 RSV VACCINE (1 - Risk 60-74 years 1-dose series) 2013 PNEUMOCOCCAL VACCINES (50+ years) (2 of 2 - PPSV23) 10/17/2020 08/22/2020 MAMMOGRAM 05/13/2022 05/13/2020, 07/28/2018 VALPROIC ACID (DEPAKENE) LEVEL 09/24/2022 09/24/2021, 10/13/2019 INFLUENZA VACCINE (#1) 2025 , 05/30/2022, 06/03/2020, Additional history exists COVID-19 VACCINE ( season) 2025 05/28/2023, 03/24/2022, 07/08/2021, Additional history exists BLOOD PRESSURE 05/11/2025 11/08/2024 CREATININE LEVEL 04/25/2026 04/25/2025, , 04/05/2025, Additional history exists POTASSIUM LEVEL 04/25/2026 04/25/2025, 03/24, 04/05/2025, Additional history exists LIPID PANEL 09/24/2026 09/24/2021 PAP SMEAR 08/24/2029 08/24/2024, 09/24, 10/20/2017 Adult Td,Tdap Booster 01/29/2031 01/29/2021 ZOSTER VACCINES Completed 02/29/2020, 07/13/2019 OSTEOPOROSIS SCREENING INITIAL (ONE-TIME) Completed 06/26/2024, 05/13/2020 SMOKING STATUS SCREENING (Once After 26 Yrs) Completed 11/22/2024 HEPATITIS A VACCINES Aged Out No long er eligible based on patient's age to complete this topic HIB VACCINES Aged Out No longer eligi ble based on patient's age to complete this topic MENINGOCOCCAL VACCINES (ACWY) Aged Out No longer eligible based on patient's age to complete this topic MENINGOCOCCAL VACCINES (B) Aged Out N o longer eligible based on patient's age to complete this topic Medical Devices Implanted Type Area Manager Zone Device Identifier Shelf Expiration Date Model / Serial / Lot Lens Lens Bilateral: Eye Mesh Mesh Bladder Left Knee Replacement Right Shoulder Replacement Cement Bone 40gr [place] [employer] - [id number] Implanted:Qty: 1 on 12/27/2017 by David Patel DO at [facility] Left: Shoulder ENCORE 01/20/2019 [id number] / / [id number] Aequalis Perform Glenoid Cortiloc S35 Shoulder 02 Nc - [id number] Implanted:Qty: 1 on 12/27/2017 at [facility] Left: Shoulder [employer] 02/03/2022 [id number] / / [id number] 2b Ascend Flex Standard Ptc Humeral Stem Shoulder 14 - [id number] Implanted:Qty: 1 on 12/27/2017 by David Patel DO at [facility] Left: Shoulder [employer] 09/07/2021 [id number] / / [id number] Low Offset Ascend Flex Stb Humeral Head Onc 22 - [id number] Implanted:Qty: 1 on 12/27/2017 by David Patel DO at [facility] Left: Shoulder [employer] 06/25/2021 [id number] / [id number] / 2b Ascend Flex Standard Ptc Humeral Stem Shoulder 14 - [id number] Implanted:Qty: 1 on 12/27/2017 by David Patel DO at [facility] Left: Shoulder [employer] 09/07/2021 [id number] / [id number] / Procedures Procedure Name Priority Date/Time Associated Diagnosis Comments COMPREHENSIVE METABOLIC PANEL Routine 04/25/2025 11:57 AM EDT Tension-type headache, not intractable, unspecified chronicity pattern CBC Routine 04/25/2025 11:57 AM EDT Tension-type headache, not intractable, unspecified chronicity pattern ABO AND RH Routine 04/16/2025 1:32 PM EDT Instability of prosthetic shoulder joint, sequela ANTIBODY SCREEN Routine 04/16/2025 1:32 PM EDT Instability of prosthetic shoulder joint, sequela BASIC METABOLIC PANEL Routine 04/16/2025 1:32 PM EDT Instability of prosthetic shoulder joint, sequela HEMOGLOBIN A1C Routine 04/16/2025 1:32 PM EDT Instability of prosthetic shoulder joint, sequela COMPREHENSIVE METABOLIC PANEL Routine 04/05/2025 10:02 AM EDT Primary osteoarthritis involving multiple joints NSAID long-term use Aspirin long-term use C-REACTIVE PROTEIN Routine 04/05/2025 10 :02 AM EDT Primary osteoarthritis involving multiple joints NSAID long-term use Aspirin long-term use SEDIMENTATION RATE (ESR) Routine 04/05/2025 10:02 AM EDT Primary osteoarthritis involving multiple joints NSAID long-term use Aspirin long-term use CBC AND DIFFERENTIAL Routine 04/05/2025 10:02 AM EDT Primary osteoarthritis involving multiple joints NSAID long-term use Aspirin long-term use COMPREHENSIVE METABOLIC PANEL Routine 03/14/2025 9:16 AM EDT Primary osteoarthritis involving multiple joints NSAID long-term use Aspirin long-term use C-REACTIVE PROTEIN Routine 03/14/2025 9: 16 AM EDT Primary osteoarthritis involving multiple joints NSAID long-term use Aspirin long-term use SEDIMENTATION RATE (ESR) Routine 03/14/2025 9:16 AM EDT Primary osteoarthritis involving multiple joints NSAID long-term use Aspirin long-term use CBC AND DIFFERENTIAL Routine 03/14/2025 9:16 AM EDT Primary osteoarthritis involving multiple joints NSAID long-term use Aspirin long-term use COMPREHENSIVE METABOLIC PANEL Routine 03/09/2025 10:22 AM EDT Other complicated headache syndrome Numbness CBC Routine 03/09/2025 10:22 AM EDT Other complicated headache syndrome Numbness SEDIMENTATION RATE (ESR) Routine 03/09/2025 10:22 AM EDT Other complicated headache syndrome Numbness CT SHOULDER WITHOUT CONTRAST (LEFT) Routine 02/22/2025 5:11 PM EDT Instability of prosthetic shoulder joint, sequela XR SHOULDER 2 VIEWS (LEFT) Routine 02/14/2025 3:50 PM EDT Pain PAP TEST Routine 08/24/2024 12:00 AM EST BD DXA AXIAL (SPINE) WITH HIP Routine 06/26/2024 8:26 AM EST Postmenopausal LIPID PANEL Routine 09/24/2021 8:17 AM EST Hypertension, unspecified type VALPROIC ACID Routine 09/24/2021 8:10 AM EST Hypertension, unspecified type BI MAMMOGRAM SCREENING WITH TOMOSYNTHESIS WITH CAD (BILATERAL) Routine 05/13/2020 7:57 AM EDT Breast cancer screening from Last 3 Months or Most Recently Relevant to Health Maintenance Results * (ABNORMAL) Comprehensive metabolic panel (04/25/2025 11:57 AM EDT) Only the most recent of4 resultswithin the time period is included. SODIUM 129(L) 133 - 146 mmol/L [facility] POTASSIUM 4.4 3.3 - 5.1 mmol/L [facility] CHLORIDE 91(L) 96 - 108 mmol/L [facility] CO2 27 21 - 35 mmol/L [facility] BUN 14 6 - 19 mg/dL [facility] CREATININE 0.40(L) 0.5 - 1.5 mg/dL [facility] GLUCOSE 84 70 - 99 mg/dL [facility] ALBUMIN 4.4 3.9 - 4.8 g/dL [facility] TOTAL PROTEIN 7.0 6.5 - 8.0 g/dL [facility] CALCIUM 10.0 8.4 - 10.3 mg/dL [facility] ALKALINE PHOSPHATASE 73 39 - 117 U/L [facility] TOTAL BILIRUBIN 0.3 0.0 - 1.2 mg/dL [facility] AST 30 0 - 37 U/L [facility] ALT 28 0 - 40 U/L [facility] GLOBULIN 2.6 1 - 4.8 g/dL [facility] EGFR 106 >59 mL/min/1.7 3m2 [facility] Comment:Estimated glomerular filtration rate calculated using the CKD-EPI refit equation. ANION GAP 15 10 - 20 mmol/L [facility] Blood 04/25/2025 11:5 7 AM EDT 04/25/2025 12:05 PM EDT us Tee Oneal MD LAB BLOOD ORDERABLES Final R esult [address] [address] * (ABNORMAL) CBC (04/25/2025 11:57 AM EDT) Only the most recent of2 resultswithin the time period is included. WBC 4.35 4.00 - 11.00 K/uL [facility] RBC 4.03 4.00 - 5.20 M/uL [facility] HGB 12.8 12.0 - 16.0 g/dL [facility] HCT 37.0 36.0 - 46.0 % [facility] PLT 237 150 - 450 K/uL [facility] MCV 91.8 80.0 - 100.0 fL [facility] MCH 31.8(H) 27.0 - 31.0 pg [facility] MCHC 34.6 32.0 - 36.0 g/dL [facility] RDW 12.8 11.5 - 14.5 % [facility] MPV 9.5 8.4 - 12.0 fL [facility] NRBC 0.00 0.00 /100 WBCs [facility] ABSOLUTE NRBC 0.00 0.00 K/uL [facility] Blood 04/25/2025 11:5 7 AM EDT 04/25/2025 12:05 PM EDT us Tee Oneal MD LAB BLOOD ORDERABLES Final R esult Performing Organization Address City/[facility]/ZIP Co de Phone Number [address] [address] * ABO and Rh (04/16/2025 1:32 PM EDT) ABO/Rh A Positive [facility] Resulting Agency [facility] Blood 04/16/2025 1:32 PM EDT 04/16/2025 1:44 PM EDT David Patel DO BLOOD BANK TEST ORDERABLES Final Result Performing Organization Address [facility] Co de Phone Number [address] [address] * Antibody Screen (04/16/2025 1:32 PM EDT) Antibody Screen Negative [facility] Resulting Agency [facility] Blood 04/16/2025 1:32 PM EDT 04/16/2025 1:43 PM EDT David Patel DO BLOOD BANK TEST ORDERABLES Final Result Performing Organization Address [facility]/ZIP Co de Phone Number [address] [address] * Hemoglobin A1c (04/16/2025 1:32 PM EDT) HEMOGLOBIN A1C 5.5 4.3 - 5.8 % [facility] Blood 04/16/2025 1:32 PM EDT 04/16/2025 1:44 PM EDT David Patel DO LAB BLOOD ORDERABLES Final Result Performing Organization Address [facility]/ZIP Co de Phone Number [address] [address] * (ABNORMAL) Basic metabolic panel (04/16/2025 1:32 PM EDT) Pathologist [facility] SODIUM 125(L) 133 - 146 mmol/L [facility] CHLORIDE 87(L) 96 - 108 mmol/L [facility] POTASSIUM 4.2 3.3 - 5.1 mmol/L [facility] CO2 26 21 - 35 mmol/L [facility] BUN 8 6 - 19 mg/dL [facility] CREATININE 0.40(L) 0.5 - 1.5 mg/dL [facility] GLUCOSE 111(H) 70 - 99 mg/dL [facility] CALCIUM 9.2 8.4 - 10.3 mg/dL [facility] EGFR 106 >59 mL/min/1.7 3m2 [facility] Comment:Estimated glomerular filtration rate calculated using the CKD-EPI refit equation. ANION GAP 16 10 - 20 mmol/L [facility] Blood 04/16/2025 1:32 PM EDT 04/16/2025 7:07 PM EDT us David Patel DO LAB BLOOD ORDERABLES Final Result [address] [address] * Sedimentation rate (ESR) (04/05/2025 10:02 AM EDT) Only the most recent of3 resultswithin the time period is included. [facility] ESR 3 0 - 30 mm/h [facility] Blood 04/05/2025 10:0 2 AM EDT 04/05/2025 10:08 AM EDT us Anay Bliss MD LAB BLOOD ORDERABLES Fin al Result [address] [address] * (ABNORMAL) CBC and differential (04/05/2025 10:02 AM EDT) Only the most recent of2 resultswithin the time period is included. [facility] WBC 4.33 4.00 - 11.00 K/uL [facility] RBC 4.07 4.00 - 5.20 M/uL [facility] HGB 13.0 12.0 - 16.0 g/dL [facility] HCT 37.7 36.0 - 46.0 % [facility] PLT 254 150 - 450 K/uL [facility] MCV 92.6 80.0 - 100.0 fL [facility] MCH 31.9(H) 27.0 - 31.0 pg [facility] MCHC 34.5 32.0 - 36.0 g/dL [facility] RDW 12.8 11.5 - 14.5 % [facility] MPV 9.3 8.4 - 12.0 fL [facility] NRBC 0.00 0.00 /100 WBCs [facility] ABSOLUTE NRBC 0.00 0.00 K/uL [facility] DIFF METHOD Auto [facility] NEUTS 54.6 48.0 - 76.0 % [facility] LYMPHS 33.9 18.0 - 41.0 % [facility] MONOS 8.8 4.0 - 11.0 % [facility] EOS 1.8 0.0 - 5.0 % [facility] BASOS 0.7 0.0 - 1.5 % [facility] Granulocytes, immature (%) 0.2 0.0 - 0.9 % [facility] ABSOLUTE NEUTS 2.36 1.92 - 7.60 K/uL [facility] ABSOLUTE LYMPHS 1.47 0.72 - 4.10 K/uL [facility] ABSOLUTE MONOS 0.38 0.16 - 1.10 K/uL [facility] ABSOLUTE EOS 0.08 0.00 - 0.50 K/uL [facility] ABSOLUTE BASOS 0.03 0.00 - 0.15 K/uL [facility] Granulocytes, immature 0.01 0.00 - 0.09 K/uL [facility] Blood 04/05/2025 10:0 2 AM EDT 04/05/2025 10:08 AM EDT us Anay Bliss MD LAB BLOOD ORDERABLES Fin al Result [address] [address] * C-Reactive Protein (04/05/2025 10:02 AM EDT) Only the most recent of2 resultswithin the time period is included. C REACTIVE PROTEIN <3.0 0.0 - 4.0 mg/L [facility] Blood 04/05/2025 10:0 2 AM EDT 04/05/2025 10:08 AM EDT us Anay Bliss MD LAB BLOOD ORDERABLES Fin al Result Performing Organization Address [facility] Co de Phone Number [address] [address] * CT SHOULDER WITHOUT CONTRAST (LEFT) (02/22/2025 5:11 PM EDT) Anatomical Region Laterality Modality Shoulder Left Computed Tomogra phy 02/28/2025 12:1 4 AM EDT Impressions 02/28/2025 12:18 AM EDT Anatomic total shoulder arthroplasty. Significant heterotopic ossification along the anterior superior aspect of the left shoulder. This could reflect prior trauma/fracture involving the coracoid with secondary development of heterotopic ossification which may impede anterior motion. At least moderate fatty atrophy of the subscapularis muscle. Narrative 02/28/2025 12:[address] SHOULDER WITHOUT CONTRAST (LEFT) TECHNIQUE: CT SHOULDER WITHOUT CONTRAST (LEFT). Arthroplasty planning protocol. Dose-modulation techniques used. COMPARISON: XR SHOULDER 2 OR MORE VIEWS (LEFT) FINDINGS: CORACOACROMIAL ARCH: Surgical changes from distal clavicular resection. Heterotopic ossification along the coracoclavicular ligaments. ROTATOR CUFF: At least moderate fatty atrophy of the subscapularis muscle. BONE: No fracture or osteonecrosis. Partially visualized cervical and thoracic spine degenerative change. GLENOHUMERAL JOINT: Surgical changes from anatomic total shoulder arthroplasty. Significant heterotopic ossification along the anterior superior aspect of the shoulder (3:34). No evidence of implant loosening. SOFT TISSUES: No suspicious pulmonary nodules. Mild coronary artery calcification. Procedure Note Kellen Siddiqui MD - 02/28/2025 CT SHOULDER WITHOUT CONTRAST (LEFT) TECHNIQUE: CT SHOULDER WITHOUT CONTRAST (LEFT). Arthroplasty planningprotocol. Dose-modulation techniques used. COMPARISON: XR SHOULDER 2 OR MORE VIEWS (LEFT) FINDINGS: CORACOACROMIAL ARCH: Surgical changes from distal clavicular resection.Heterotopic ossification along the coracoclavicular ligaments. ROTATOR CUFF: At least moderate fatty atrophy of the subscapularismuscle. BONE: No fracture or osteonecrosis. Partially visualized cervical andthoracic spine degenerative change. GLENOHUMERAL JOINT: Surgical changes from anatomic total shoulderarthroplasty. Significant heterotopic ossification along the anteriorsuperior aspect of the shoulder (3:34). No evidence of implantloosening. SOFT TISSUES: No suspicious pulmonary nodules. Mild coronary arterycalcification. IMPRESSION: Anatomic total shoulder arthroplasty. Significant heterotopic ossification along the anterior superior aspect ofthe left shoulder. This could reflect prior trauma/fracture involving thecoracoid with secondary development of heterotopic ossification which mayimpede anterior motion. At least moderate fatty atrophy of the subscapularis muscle. David Patel DO IMG CT EXTREMITY Final Resu lt * XR SHOULDER 2 VIEWS (LEFT) (02/14/2025 3:50 PM EDT) Narrative SYSTEMGENERATED, DOCUMENTATION - 02/14/2025 3:50 PM EDT This image report has been auto-finalized and has not been read by a Radiologist. Interpretation has been included in the provider encounter note for this date of service. David Patel DO IMG XR UPPER EXTREMITY Ria l Result * Pap Test (08/24/2024 12:00 AM EST) 08/24/2024 08/25/2024 9:0 9 AM EST Narrative SEE NARRATIVE - 08/29/2024 4:20 [place] [address] Repair Cameraman: Elmer Valdez MD CRUCIBLE PACKER Cytology Report FINAL DIAGNOSIS A. PAP SMEAR (THIN PREP) CE: SPECIMEN ADEQUACY: Satisfactory for evaluation; transformation zone present. INTERPRETATION: NEGATIVE FOR INTRAEPITHELIAL LESION OR MALIGNANCY. Atrophy. This specimen was analyzed by the automated ThinPrep Imaging System ([employer]) and the selected tadeo were reviewed by a application programmer analyst. Electronically Signed Out By: ARMEN Mcgarry(ASCP) ARMEN Avalos(ASCP) The Pap test is a screening test primarily for squamous cancers and precursors and has associated false-negative and false-positive results. New technologies such as liquid-based preparations may decrease but will not eliminate all false-negative results. Regular sampling and follow-up of unexplained clinical signs and symptoms are recommended to minimize false negative results. CLINICAL HISTORY Date of Last Menstrual Period: Not Provided Menstrual History: Post Menopausal Bleeding, PM Treatment History: Concurrent BXs Other Clinical Conditions: Diagnostic Pap SPECIMEN SOURCE A: PAP SMEAR (THIN PREP) CE Patient Name: MEGAN EDOUARD : 1955 (Age: 68) Sex: F Institution: [facility] Location: [facility] Date of Collection: 08/24/2024 Date of Reported: 08/29/2024 16:20 Results to: Suad Hardy MD us Suad Hardy MD CYTOLOGY ORDERABLES Final Res ult SEE NARRATIVE * BD DXA AXIAL (SPINE) WITH HIP (06/26/2024 8:26 AM EST) Anatomical Region Laterality Modality Bone Density Bone Density 06/26/2024 8:17 AM EST Impressions 06/26/2024 8:36 AM EST Interpretation: Osteopenia. Narrative 06/26/2024 8:36 AM EST Referred By: ANAY BLISS I Indications: Postmenopausal Scanner: HoloMovirtu A with serial# of [id number] located at [facility] Bone Density Scan (DXA) 06/26/24 Details of prior DXA scans are available by clicking View Image BMD T- Z- Skeletal Site gm/cm2 score score BMD Change Since Prior Scan ------ ----- ----- PA Spine (L1 L2) 1.483 4.60 6.60 0.227 (18.1%)* since 05/13/2020 Total Hip (Right) 0.871 -0.60 1.00 -0.047 (-5.1%)* since 05/13/2020 Femoral Neck (Right) 0.692 -1.40 0.40 0.014 (stable) since 05/13/2020 ------ ----- ----- * Denotes significant change when >= 0.022 g/cm2 for the spine, 0.027 g/cm2 for the total hip, 0.029 g/cm2 for the femoral neck. Interpretation: Osteopenia. Technical Quality: Imaging of all sites was of adequate quality.Because only two vertebrae are measurable, interpret PA spine results with caution; serial changes may be more variable than usual. FRAX: Based on FRAX(r) 3.6 (U[place] White female), this patient's likelihood of hip fracture is 1.3% and major osteoporotic fracture is 9.5% over the next 10 years. The patient reported no risks of fracture. Additional Information: -World Health Organization criteria classify adults based on lowest T-score at PA spine, hip or forearm: Normal (T-score >= -1.0), Osteopenia (T-score between -1 and -2.5), or Osteoporosis (T-score <= -2.5). At [facility], T-scores are compared to peak bone density of a young white gender matched reference population. - For premenopausal women and men under the age of 50, Z-scores (comparison to age, gender, and ethnicity matched reference population) are used: Above expected range for age (Z-score >= 2.0), Within expected range of age (Z-score 1.9 to -1.9), or Below expected range for age (Z-score <= -2.0). - The Bone Health and Osteoporosis Foundation recommends that treatment be considered in men aged more than 50 years and in postmenopausal women with ANY of the following: Prior hip or vertebral fractures; T-score of <= -2.5 at the PA spine or hip; or 10 year fracture probability by FRAX of >= 3% for the hip or >= 20% for major osteoporotic fracture. - The FRAX algorithm (https://www.sheldon.ac.uk/FRAX/tool.aspx) is designed to predict 10-year fracture risk in treatment-naive adults between the ages of 40 and 90. It is not intended to be used in those receiving pharmacologic osteoporosis treatment. - Including race/ethnicity in the generation of T- or Z-scores or in the FRAX calculation is complicated, and currently undergoing active review to ensure that we can give patients the best information on their risk of fracture. -Some prior studies may not be compatible with our comparison software. -Click on View Full Report to see subsequent pages with images and prior bone density results. Reviewed By: Surendra Kline MD on 06/26/2024 08:36:52 Procedure Note Surendra Kline MD - 06/26/2024 Referred By: ANAY BLISS I Indications: Postmenopausal Scanner: Finisar A with serial# of [id number] located at [facility] Bone Density Scan (DXA) 06/26/24 Details of prior DXA scans are available by clicking View Image BMD T- Z- Skeletal Site gm/cm2 score score BMD Change Since Prior Scan ------ ----- PA Spine (L1 L2) 1.483 4.60 6.60 0.227 (18.1%)* since05/13/2020 Total Hip (Right) 0.871 -0.60 1.00 -0.047 (-5.1%)* since05/13/2020 Femoral Neck (Right) 0.692 -1.40 0.40 0.014 (stable) since05/13/2020 ------ ----- * Denotes significant change when >= 0.022 g/cm2 for the spine, 0.027g/cm2 for the total hip, 0.029 g/cm2 for the femoral neck. Interpretation: Osteopenia. Technical Quality: Imaging of all sites was of adequate quality.Becauseonly two vertebrae are measurable, interpret PA spine results with caution; serial changes may be more variable than usual. FRAX: Based on FRAX(r) 3.6 ([place] White female), this patient's likelihoodof hip fracture is 1.3% and major osteoporotic fracture is 9.5% over the next 10 years. The patient reported no risks of fracture. Additional Information: -World Health Organization criteria classify adults based on lowestT-score at PA spine, hip or forearm: Normal (T-score >= -1.0), Osteopenia (T-score between -1 and -2.5), or Osteoporosis (T-score <= -2.5). At [facility], T-scores are compared to peak bone density of a young white gender matched reference population. - For premenopausal women and men under the age of 50, Z-scores(comparison to age, gender, and ethnicity matched reference population) are used:Above expected range for age (Z-score >= 2.0), Within expected range of age (Z-score 1.9 to -1.9), or Below expected range for age (Z-score <= -2.0). - The Bone Health and Osteoporosis Foundation recommends that treatment be considered in men aged more than 50 years and in postmenopausal women with ANY of the following: Prior hip or vertebral fractures; T-score of <= -2.5 at the PA spine or hip; or 10 year fracture probability by FRAX of >= 3%for the hip or >= 20% for major osteoporotic fracture. - The FRAX algorithm (https://www.sheldon.ac.uk/FRAX/tool.aspx) is designed to predict 10-year fracture risk in treatment-naive adultsbetween the ages of 40 and 90. It is not intended to be used in those receiving pharmacologic osteoporosis treatment. - Including race/ethnicity in the generation of T- or Z-scores or in the FRAX calculation is complicated, and currently undergoing active review to ensure that we can give patients the best information on their risk of fracture. -Some prior studies may not be compatible with our comparison software. -Click on View Full Report to see subsequent pages with images and prior bone density results. Reviewed By: Surendra Kline MD on 06/26/2024 08:36:52 IMPRESSION: Interpretation: Osteopenia. us Anay Bliss MD IMG BD BONE DENSITY DEXA Final Result * (ABNORMAL) Lipid panel (09/24/2021 8:17 AM EST) HDL 96 mg/dL [facility] Comment: Interpretation <40 mg/dL: Low HDL cholesterol (major risk factor for CHD) Greater than or equal to 60 mg/dL: High HDL cholesterol ( negative risk factor for CHD) HDL - cholesterol is affected by a number of factors, e.g. smoking, excerise, hormones, sex and age. CHOLESTEROL 228 0 - 240 mg/dL [facility] TRIGLYCERIDES 82 30 - 160 mg/dL [facility] LDL 116 50 - 129 mg/dL [facility] Comment: LDL levels in terms of risk for coronary heart disease: <100 mg/dL: Optimal 100-129 mg/dL: Near or above optimal 130-159 mg/dL: Borderline high 160-189 mg/dL: High >190 mg/dL: Very High CARDIAC RISK RATIO 2.4(L) 3.3 - 4.4 C [facility] Blood 09/24/2021 8:17 AM EST 09/24/2021 8:18 AM EST Demetrio Gonzales MD LAB BLOOD ORDERABLES Fi nal Result Performing Organization Address City/[facility]/ZIP Co de Phone Number [address] [address] * (ABNORMAL) Valproic acid (09/24/2021 8:10 AM EST) VALPROIC ACID 41.7(L) 50.0 - 100.0 ug/mL [facility] Blood 09/24/2021 8:10 AM EST 09/24/2021 8:14 AM EST Demetrio Gonzales MD LAB BLOOD ORDERABLES Fi nal Result Performing Organization Address [facility] Co de Phone Number [address] [address] * BI MAMMOGRAM SCREENING WITH TOMOSYNTHESIS WITH CAD (BILATERAL) (05/13/2020 7:57 AM EDT) Anatomical Region Laterality Modality Breast Left, Breast Right, Breast Bilateral Bila teral Mammography 05/13/2020 6:22 PM EDT Impressions 05/13/2020 6:25 PM EDT BILATERAL BREASTS: Benign, no evidence of malignancy. Normal interval follow-up is recommended in 12 months. BI-RADS: BI-RADS CATEGORY: 2 - Benign finding. DENSITY: There are scattered fibroglandular densities. Narrative 05/13/2020 6:25 PM EDT STUDY: Bilateral screening mammography with tomosynthesis and CAD TECHNIQUE: Bilateral full-field digital screening mammography is obtained and read in conjunction with computer-aided detection. Tomosynthesis as well as 2-D C view imaging were obtained. COMPARISON: Comparison made to multiple prior, most recent July 28, 2018, and most remote March 20, 2013. BREAST COMPOSITION: There are scattered areas of fibroglandular density RIGHT BREAST: No significant masses, calcifications or other abnormalities are seen. LEFT BREAST: History of previous biopsy. No significant masses, calcifications or other abnormalities are seen. Procedure Note Tyson Ramos MD - 05/13/2020 STUDY: Bilateral screening mammography with tomosynthesis and CAD TECHNIQUE: Bilateral full-field digital screening mammography is obtainedand read in conjunction with computer-aided detection. Tomosynthesis aswell as 2-D C view imaging were obtained. COMPARISON: Comparison made to multiple prior, most recent July, and most remote March 20, 2013. BREAST COMPOSITION: There are scattered areas of fibroglandulardensity RIGHT BREAST: No significant masses, calcifications or other abnormalitiesare seen. LEFT BREAST: History of previous biopsy. No significant masses,calcifications or other abnormalities are seen. IMPRESSION: BILATERAL BREASTS: Benign, no evidence of malignancy. Normal intervalfollow-up is recommended in 12 months. BI-RADS: BI-RADS CATEGORY: 2 - Benign finding. DENSITY: There are scattered fibroglandular densities. Suad Hardy MD IMG MG EXAMS Final Result from Last 3 Months or Most Recently Relevant to Health Maintenance Insurance MEDICARE PART A & B [employer] MEDICARE SUPPLEMENT B MEDICARE PART A & B [facility] SUPPLEMENT B MEDICARE PART A & B [employer] MEDICARE SUPPLEMENT MEDICARE PART A & B [employer] MEDICARE SUPPLEMENT MEDICARE PART A & B [employer] MEDICARE SUPPLEMENT B MEDICARE PART A & B [employer] MEDICARE SUPPLEMENT B Advance Directives For more information, please contact: [phone] (9AM - 5PM [place], Wednesday-Wednesday) * Full Code (Latest Code Status on File) Date Activated Date Inactivated Comments 02/05/2023 10:00 AM Question Answer Comments Code Status Confirmed With: Patient * Full Code (Presumed) Date Activated Date Inactivated Comments 12/27/2017 12:07 PM 12/28/2017 1:18 PM * Full Code (Presumed) Date Activated Date Inactivated Comments 12/27/2017 6:18 AM 12/27/2017 12:07 PM Care Teams Feller Buncher Operator Relationship Specialty Start Date End Date Lucius Hannon MD [address] [place] [address] PCP - General Internal Medicine 11/27/24 See Wan MD [address] [place] [address] [email or web address] Historical LMR Provider 06/09/17 Anay Bliss MD [address] [place] [address], [facility] [address] [place] [address] [email or web address] Historical LMR Provider 06/09/17 David Patel DO [address] [place] [address] Orthopedics & Sports Medicine, [place] [address] [email or web address] Historical LMR Provider 06/09/17 Additional Source Comments The information contained in this document represents components of the legal health record. It is not the complete legal health record.[facility]
== END 2025-05-07 12:02 | disposition home or self-care (01) ==
PROVIDERS: PCP Student in an Organized Health Care Education/Training Program; Visit Provider Student in an Organized Health Care Education/Training Program
DX: I10 Essential (primary) hypertension (principal); N39.41 Urge incontinence; G50.0 Trigeminal neuralgia; Z01.818 Encounter for other preprocedural examination; R74.8 Abnormal levels of other serum enzymes; M15.0 Primary generalized (osteo)arthritis

== ENCOUNTER → 2025-05-07 11:18 | Outpatient (BNVA) | payer MEDICARE, OTHER, SELFPAY | PROVIDERS: PCP Internal Medicine; Visit Provider Student in an Organized Health Care Education/Training Program | DX: Z01.818 Encounter for other preprocedural examination (principal); I10 Essential (primary) hypertension; N39.41 Urge incontinence; G50.0 Trigeminal neuralgia; R74.8 Abnormal levels of other serum enzymes; M15.0 Primary generalized (osteo)arthritis | CPT/HCPCS: 93005; 99212 ==

== ENCOUNTER 2025-05-07 12:03 | Outpatient (REF) | payer MEDICARE, OTHER, SELFPAY ==
[2025-05-07 12:57] LABS: Alanine Aminotransferase 29 U/L (0-31); Albumin Level 4.3 g/dL (3.5-5.0); Alkaline Phosphatase 64 U/L (39-117); Anion Gap 11 (12-20); Aspartate Amino Transferase 28 U/L (5-31); Blood Urea Nitrogen 14 mg/dL (9-16); Calcium 9.2 mg/dL (8.4-10.2); Carbon Dioxide 32 mmol/L (22-29); Chloride 99 mmol/L (96-108); Estimated Glomerular Filt Rate > 60; Potassium 4.2 mmol/L (3.3-5.1); Sodium 138 mmol/L (135-145); Total Protein 6.7 g/dL (6.5-8.0)
== END 2025-05-07 12:04 | disposition home or self-care (01) ==
LOC: HO.10HDL 12:03
PROVIDERS: Visit Provider Student in an Organized Health Care Education/Training Program
DX: Z01.818 Encounter for other preprocedural examination (principal); R74.8 Abnormal levels of other serum enzymes
CPT/HCPCS: 36415; 80053

== ENCOUNTER 2025-05-09 11:23 | Outpatient (REF) | payer MEDICARE, OTHER, SELFPAY ==
--- OUTSIDE RECORDS SUMMARY | 2021-05-31 13:10 | XMS_ITS | Encounter Summary ---
Author Organization [facility] Address [address] [place] [address] Phone Care Team Providers Care Traffic Maintenance Supervisor Name Role Phone See Wan MD Unavailable [phone] Anay Bliss MD Unavailable Tammi Corral PA-C Unavailable [phone] David Patel DO Unavailable Demetrio Gonzales MD Unavailable Linette Echeverria PA-C Unavailable [phone] Cirilo Bernard MD Unavailable Akil Jenkins MD Unavailable [phone] Demetrio Gonzales MD Primary Care Provider Encounter Details Date Type Department Care Team (Late st Contact Info) Description 05/31/2021 1:10 PM EDT Hospital Encounter [facility] Urgent Care [address] [place] [address] Belia Quintero FNP [address] [place] [address] [email or web address] Social History Tobacco Use Types Packs/Day Years [...] 10:22 PM EDT Prashant Gutiérrez RN * [place] Suicide Severity Rating Scale (Screener/Recent Self-Report) Question Answer Date of Assessment Author 1. Wish to be (Past 1 Month) No 023 10:22 PM EDT Prashant Gutiérrez RN 2. Non-Specific Active Suici yola Thoughts (Past 1 Month) No 02/05/2023 10:22 PM EDT Max Gutiérrez RN 6. Suicidal Behavior (Lifetime) No 3 10:22 PM EDT Prashant Gutiérrez RN documented as of this encounter Plan of Treatment Upcoming Encounters Date Type Department Care Team (Late st Contact Info) Description 05/14/2025 8:00 AM EDT Office Visit [facility] Rheumatology [address] [place] [address] [place] [address] Anay Bliss MD 22 [facility], [address] [place] [address] [email or web address] 06/20/2025 8:00 AM EDT Office Visit [facility] Orthopedics & Sports Medicine [address] [place] [address] Cameron Hayward PA-C [address] [place] [address] [place] [address] [email or web address] 07/16/2025 Procedure Pass OR Admitting Dept - Virtual Department [address] [place] [address] 07/16/2025 7:30 AM EST Hospital Encounter OR Admitting Dept - Virtual Department [address] [place] [address] David Patel DO 4 [facility] Orthopedics & Sports [facility], [place] [address] 07/16/2025 7:30 AM EST - 07/16/2025 9:55 AM EST Surgery OR Admitting Dept - Virtual Department [address] [place] [address] David Patel DO 4 [facility] Orthopedics & Sports [facility], [place] [address] ARTHROPLASTY ANATOMIC INVERSE SHOULDER 08/01/2025 8:00 AM EST Office Visit [facility] Orthopedics & Sports Medicine [address] [place] [address] Cameron Hayward PA-C [address] [place] [address] [place] [address] [email or web address] 08/29/2025 9:00 AM EST Office Visit [facility] Orthopedics & Sports Medicine [address] [place] [address] David Patel DO [address] [place] [address] Orthopedics & Sports [facility], [place] [address] Scheduled Procedures Name Priority Associated Diagnoses Date/Ti [...] IMPRESSION: No fracture or dislocation. 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 IMG XR UPPER EXTREMITY Ria l Result documented in this encounter Visit Diagnoses Not on filedocumented in this encounter Care Teams Traffic Maintenance Supervisor Relationship Specialty Start Date End Date Demetrio Gonzales MD [address] [place] [address] [place] [address] PCP - General 06/10/17 11/26/24 See Wan MD [address] [place] [address] [email or web address] Historical LMR Provider 06/09/17 Anay Bliss MD [address] [place] [address], [facility] 203 [place] [address] [email or web address] Historical LMR Provider 06/09/17 Tammi Corral PA-C [address] [place] [address] Orthopedics Sports [facility], [place] [address] Historical LMR Provider 06/09/17 08/30/21 David Patel DO [address] [place] [address] [place] [address] [email or web address] Historical LMR Provider 06/09/17 Demetrio Gonzales MD [address] [place] [address] [place] [address] Historical LMR Provider 06/09/17 2 Linette Echeverria PA-C [address] [place] [address] Orthopedics Sports [facility], [place] [address] [email or web address] Historical LMR Provider 06/09/17 08/30/21 Cirilo Bernard MD [address] [place] [address], [facility] [address] [place] [address] Historical LMR Provider 06/09/17 08/30/21 Akil Jenkins MD [address] [place] [address] Historical LMR Provider 06/09/17 2 documented as of this encounter Additional Source Comments The information contained in this document represents components of the legal health record. It is not the complete legal health record.[facility]
--- OUTSIDE RECORDS SUMMARY | 2021-06-04 15:30 | XMS_ITS | Encounter Summary ---
Author Organization [facility] Address [address] [place] [address] Phone Care Team Providers Care Warping Machine Operator Name Role Phone See Wan MD Unavailable [phone] Anay Bliss MD Unavailable [phone] Tammi Corral PA-C Unavailable [phone] aDvid Patel DO Unavailable [phone] Demetrio Gonzales MD Unavailable Linette Echeverria PA-C Unavailable [phone] Cirilo Bernard MD Unavailable [phone] Akil Jenkins MD Unavailable [phone] Demetrio Gonzales MD Primary Care Provider Encounter Details Date Type Department Care Team (Late st Contact Info) Description 06/04/2021 3:30 PM EDT Hospital Encounter [facility] [address] [place] [address] Ginny Pacheco PA 12 [place] [address] [email or web address] Social History Tobacco Use Types Packs/Day Years [...] 10:22 PM EDT Prashant Gutiérrez RN * [place] Suicide Severity Rating Scale (Screener/Recent Self-Report) Question Answer Date of Assessment Author 1. Wish to be (Past 1 Month) No 023 10:22 PM EDT Prashant Gutiérrez RN 2. Non-Specific Active Suici yola Thoughts (Past 1 Month) No 02/05/2023 10:22 PM EDT Max Gutiérrez, SHABANA 6. Suicidal Behavior (Lifetime) No 3 10:22 PM EDT Prashant Gutiérrez, SHABANA documented as of this encounter Plan of Treatment Upcoming Encounters Date Type Department Care Team (Late st Contact Info) Description 05/14/2025 8:00 AM EDT Office Visit [facility] Rheumatology [address] [place] [address] Anay Bliss MD [address] [place] [address], [address] [place] [address] [email or web address] 06/20/2025 8:00 AM EDT Office Visit [facility] Orthopedics & Sports Medicine [address] [place] [address] Cameron Hayward PA-C [address] [place] [address] [place] [address] [email or web address] 07/16/2025 Procedure Pass OR Admitting Dept - Virtual Department [address] [place] [address] 07/16/2025 7:30 AM EST Hospital Encounter OR Admitting Dept - Virtual Department [address] [place] [address] David Patel DO 4 [facility] Orthopedics & Sports [facility], [place] [address] 07/16/2025 7:30 AM EST - 07/16/2025 9:55 AM EST Surgery OR Admitting Dept - Virtual Department [address] [place] [address] David Patel DO 4 [facility] Orthopedics & Sports [facility], [place] [address] ARTHROPLASTY ANATOMIC INVERSE SHOULDER 08/01/2025 8:00 AM EST Office Visit [facility] Orthopedics & Sports Medicine [address] [place] [address] Cameron Hayward PA-C [address] [place] [address] [place] [address] [email or web address] 08/29/2025 9:00 AM EST Office Visit [facility] Orthopedics & Sports Medicine [address] [place] [address] David Patel DO 4 [facility], [place] [address] Scheduled Procedures Name Priority Associated Diagnoses Date/Ti [...] on filedocumented in this encounter Care Teams Warping Machine Operator Relationship Specialty Start Date End Date Demetrio Gonzales MD [address] [place] [address] [place] [address] PCP - General 06/10/17 11/26/24 See Wan MD [address] [place] [address] [email or web address] Historical LMR Provider 06/09/17 Anay Bliss MD 22 [facility], [facility] 203 [place] [address] Historical LMR Provider 06/09/17 Tammi Corral PA-C [address] [place] [address] Orthopedics Sports [facility], [place] [address] Historical LMR Provider 06/09/17 08/30/21 David Patel DO [address] [place] [address] [facility], [place] [address] [email or web address] Historical LMR Provider 06/09/17 Demetrio Gonzales MD [address] [place] [address] [place] [address] Historical LMR Provider 06/09/17 Linette Patel PA-C [address] [place] [address] Orthopedics Sports [facility], [place] [address] Historical LMR Provider 06/09/17 08/30/21 Cirilo Bernard MD [address] [place] [address], [facility] 102 [place] [address] Historical LMR Provider 06/09/17 08/30/21 Akil Jenkins MD [address] [place] [address] Historical LMR Provider 06/09/17 2 documented as of this encounter Additional Source Comments The information contained in this document represents components of the legal health record. It is not the complete legal health record.[facility]
--- OUTSIDE RECORDS SUMMARY | 2021-10-18 10:29 | XMS_ITS | Encounter Summary ---
Author Organization [facility] Address [address] [place] [address] Phone Care Team Providers Care Button Attaching Machine Operator Name Role Phone See Wan MD Unavailable [phone] Anay Bliss MD Unavailable [phone] David Patel DO Unavailable [phone] Demetrio Gonzales MD Primary Care Provider Encounter Details Date Type Department Care Team (Late st Contact Info) Description 10/18/2021 9:29 AM EST Hospital Encounter [facility] Urgent Care [address] [place] [address] [phone] Latoya Miller, DEVELOPMENTAL BEHAVIORAL PHYSICIAN [address] [place] [address] [email or web address] Social History Tobacco Use Types Packs/Day Years [...] 10:22 PM EDT Prashant Gutiérrez RN * [place] Suicide Severity Rating Scale (Screener/Recent Self-Report) Question [...] Description 05/14/2025 8:00 AM EDT Office Visit [facility] Rheumatology [address] [place] [address] Anay Bliss MD [address] [place] [address], [address] [place] [address] [email or web address] 06/20/2025 8:00 AM EDT Office Visit [facility] Orthopedics & Sports Medicine [address] [place] [address] Cameron Hayward PA-C [address] [place] [address] [place] [address] [email or web address] 07/16/2025 Procedure Pass OR Admitting Dept - Virtual Department [address] [place] [address] 07/16/2025 7:30 AM EST Hospital Encounter OR Admitting Dept - Virtual Department [address] [place] [address] David Patel, DO 4 [facility] Orthopedics & Sports [place] [address] 07/16/2025 7:30 AM EST - 07/16/2025 9:55 AM EST Surgery OR Admitting Dept - Virtual Department [address] [place] [address] David Patel, DO 4 [facility] Orthopedics & Sports [facility] [address] ARTHROPLASTY ANATOMIC INVERSE SHOULDER 08/01/2025 8:00 AM EST Office Visit [facility] Orthopedics & Sports Medicine [address] [place] [address] Cameron Hayward PA-C [address] [place] [address] [place] [address] [email or web address] 08/29/2025 9:00 AM EST Office Visit [facility] Orthopedics & Sports Medicine [address] [place] [address] David Patel, DO [address] [place] [address] Orthopedics Sports [facility], [place] [address] Scheduled Procedures Name Priority Associated Diagnoses Date/Ti [...] IMPRESSION: No displaced rib fracture. Latoya Miller [facility] IMG XR CHEST Final R esult documented in this encounter Visit Diagnoses Not on filedocumented in this encounter Care Teams Button Attaching Machine Operator Relationship Specialty Start Date End Date Demetrio Gonzales MD [address] [place] [address] [place] [address] PCP - General 06/10/17 11/26/24 See Wan MD [address] [place] [address] [email or web address] Historical LMR Provider 06/09/17 Anay Bliss MD [address] [place] [address], [address] [place] [address] [email or web address] Historical LMR Provider 06/09/17 David Patel DO [address] [place] [address] Orthopedics & Sports Medicine, [place] [address] [email or web address] Historical LMR Provider 06/09/17 documented as of this encounter Additional Source Comments The information contained in this document represents components of the legal health record. It is not the complete legal health record.[facility]
--- OUTSIDE RECORDS SUMMARY | 2024-01-30 09:35 | XMS_ITS | Encounter Summary ---
Author Organization [facility] Address [address] [place] [address] [place] [id number] Phone Care Team Providers Care Ap Processor Name Role Phone See Wan MD Unavailable Anay Bliss MD Unavailable [phone] David Patel DO Unavailable [phone] Demetrio Gonzales MD Primary Care Provider Encounter Details Date Type Department Care Team (Late st Contact Info) Description 01/30/2024 9:35 AM EDT Hospital Encounter [facility] [address] [place] [address] Maira Bolden CNP [address] [place] [address] [email or web address] Social History Tobacco Use Types Packs/Day Years [...] PM EDT documented as of this encounter Plan of Treatment Upcoming Encounters Date Type Department Care Team (Late st Contact Info) Description 05/14/2025 8:00 AM EDT Office Visit [facility] [address] [place] [address] Anay Bliss MD 22 [facility], [address] [place] [address] [email or web address] 06/20/2025 8:00 AM EDT Office Visit [facility] [address] [place] [address] Cameron Hayward PA-C [address] [place] [address] [place] [address] [email or web address] 07/16/2025 Procedure Pass OR Admitting Dept - Virtual Department [address] [place] [id number] 07/16/2025 7:30 AM EST Hospital Encounter [place] Admitting Dept - Virtual Department [address] [place] [phone] David Patel, 4 [facility] [place] [address] 07/16/2025 7:30 AM EST - 07/16/2025 9:55 AM EST Surgery OR Admitting Dept - Virtual Department [address] [place] [address] David Patel, 4 [facility] [place] [address] ARTHROPLASTY ANATOMIC INVERSE SHOULDER 08/01/2025 8:00 AM EST Office Visit [facility] [address] [place] [address] Cameron Hayward PA-C [address] [place] [address] [place] [address] [email or web address] 08/29/2025 9:00 AM EST Office Visit [facility] [address] [place] [address] David Patel DO [address] [place] [address] Orthopedics & Sports Medicine, [facility] [place] [address] [email or web address] Scheduled Procedures Name Priority Associated Diagnoses Date/Ti me ARTHROPLASTY ANATOMIC INVERSE SHOULDER Instability of prosthetic shoulder joint, sequela 07/16/2025 7:30 AM EST documented as of this encounter Procedures Procedure Name Priority Date/Time Associated Diagnosis Comments XR ANKLE 3 OR MORE VIEWS (RIGHT) Urgent/patient waiting 01/30/2024 9:55 AM EDT Acute right ankle pain documented in this encounter Results * XR ANKLE 3 OR MORE VIEWS (RIGHT) (01/30/2024 9:55 AM EDT) Anatomical Region Laterality Modality Ankle Right Computed Radiogr aphy 01/30/2024 10:0 2 AM EDT Impressions 01/30/2024 10:05 AM EDT No fracture or dislocation. ATTESTATION: I, Markus Mansfield as teaching physician, have reviewed the images for this case and if necessary edited the report originally created by Geri Givens. Narrative 01/30/2024 10:05 AM EDT XR ANKLE 3 OR MORE VIEWS (RIGHT) Referring clinician's provided indication for this examination in Epic: Pain; no trauma, medial malleoili, hx: gout, Ca pyrophoshate deposition disorder COMPARISON: XR ANKLE 3 OR MORE VIEWS (RIGHT) FINDINGS: No fracture. Normal alignment. Symmetric ankle mortise. Mild degenerative changes of the ankle. No soft tissue swelling or ankle effusion. Procedure Note Markus Mansfield MD, PhD - 01/30/2024 XR ANKLE 3 OR MORE VIEWS (RIGHT) Referring clinician's provided indication for this examination in Epic:Pain; no trauma, medial malleoili, hx: gout, Ca pyrophoshate depositiondisorder COMPARISON: XR ANKLE 3 OR MORE VIEWS (RIGHT) FINDINGS: No fracture. Normal alignment. Symmetric ankle mortise. Mild degenerativechanges of the ankle. No soft tissue swelling or ankle effusion. IMPRESSION: No fracture or dislocation. ATTESTATION: Markus Marie as teaching physician, have reviewed theimages for this case and if necessary edited the report originally createdby Geri Gviens. Maira Bolden WHEEL WORKER IMG XR LOWER EXTREMITY Ria l Result documented in this encounter Visit Diagnoses Not on filedocumented in this encounter Care Teams Ap Processor Relationship Specialty Start Date End Date Demetrio Gonzales MD [address] [place] [address] [place] [address] PCP - General 06/10/17 11/26/24 See Wan MD [address] [place] [address] [email or web address] Historical LMR Provider 06/09/17 Anay Bliss MD [address] [place] [address], [facility] [address] [place] [address] [email or web address] Historical LMR Provider 06/09/17 David Patel DO [address] [place] [address] [facility] [place] [address] [email or web address] Historical LMR Provider 06/09/17 documented as of this encounter Additional Source Comments The information contained in this document represents components of the legal health record. It is not the complete legal health record.[facility]
--- NOTE | ~2025-05-09 | MM_ITS ---
EXAMINATION: MM SCREENING DIGITAL BREAST TOMOSYNTHESIS, BILATERAL CLINICAL INFORMATION: Screening. Asymptomatic. COMPARISON: Mammography: Comparison is made with available priors TECHNIQUE: Digital breast mammography with tomosynthesis is performed in both the craniocaudal and mediolateral oblique views along with computer-aided detection (CAD). FINDINGS: There are scattered areas of fibroglandular density (ACR BI-RADS breast composition Category b). Left post surgical changes are stable. There are no significant masses, abnormal calcifications, or other abnormalities. Right: Asymmetry lateral breast posterior depth on CC view. No suspicious calcifications or other abnormal findings. MM/MM tomosynthesis screening BI IMPRESSION: Additional imaging is recommended ASSESSMENT: BI-RADS BI-RADS 0 - Incomplete: Needs additional Imaging. RECOMMENDATION: 1. Additional views of the right breast. 2. Targeted ultrasound if warranted after review of the additional views. 3. Radiology department staff will contact the patient for additional imaging. Additional Imaging required This examination should not preclude the clinical evaluation of a suspicious palpable abnormality. This patient's information was entered into a reminder system with a target due date for their next mammogram. Electronically signed by: Liat Mixon DO 05/11/2025 06:03 PM EDT
--- OUTSIDE RECORDS SUMMARY | 2025-05-09 14:46 | XMS_ITS | Encounter Summary ---
Author Organization [facility] Address [address] [place] [address] [place] [address] Phone Care Team Providers Care Business Operations Coordinator Name Role Phone See Wan MD Unavailable Anay Bliss MD Unavailable [phone] David Patel DO Unavailable [phone] Demetrio Gonzales MD Primary Care Provider Lucius Hannon MD Primary Care Provid er Encounter Details Date Type Department Care Team (Late st Contact Info) Description 02/05/2023 Procedure Pass OR Admitting Dept - Virtual Department [address] [place] [address] Social History Tobacco Use Types Packs/Day Years [...] 10:22 PM EDT Prashant Gutiérrez RN * [place] Suicide Severity Rating Scale (Screener/Recent Self-Report) Question [...] Description 05/14/2025 8:00 AM EDT Office Visit [facility] Rheumatology [address] [place] [address] Anay Bliss MD [address] [place] [address], [address] [place] [address] [email or web address] 06/20/2025 8:00 AM EDT Office Visit [facility] Orthopedics & Sports Medicine [address] [place] [address] Cameron Hayward PA-C [address] [place] [address] [place] [address] [email or web address] 07/16/2025 Procedure Pass OR Admitting Dept - Virtual Department [address] [place] [address] 07/16/2025 7:30 AM EST Hospital Encounter OR Admitting Dept - Virtual Department [address] [place] [address] David Patel DO [address] [place] [address] Orthopedics & Sports Medicine, [place] [address] 07/16/2025 7:30 AM EST - 07/16/2025 9:55 AM EST Surgery OR Admitting Dept - Virtual Department [address] [place] [address] David Patel DO [address] [place] [address] [facility], [place] [address] ARTHROPLASTY ANATOMIC INVERSE SHOULDER 08/01/2025 8:00 AM EST Office Visit [facility] Orthopedics & Sports Medicine [address] [place] [address] Cameron Hayward PA-C [address] [place] [address] [place] [address] [email or web address] 08/29/2025 9:00 AM EST Office Visit [facility] Orthopedics & Sports Medicine [address] [place] [address] David Patel DO [address] [place] [address] [facility], [place] [address] Scheduled Procedures Name Priority Associated Diagnoses Date/Ti me ARTHROPLASTY ANATOMIC INVERSE SHOULDER Instability of prosthetic shoulder joint, sequela 07/16/2025 7:30 AM EST documented as of this encounter Visit Diagnoses Not on filedocumented in this encounter Care Teams Business Operations Coordinator Relationship Specialty Start Date End Date Demetrio Gonzales MD [address] [place] [address] [place] [address] PCP - General 06/10/17 11/26/24 Lucius Hannon MD [address] [place] [address] [place] [address] PCP - General Internal Medicine 11/27/24 See Wan MD [address] [place] [address] [email or web address] Historical LMR Provider 06/09/17 Anay Bliss MD [address] [place] [address] [address] [place] [address] [email or web address] Historical LMR Provider 06/09/17 David Patel DO [address] [place] [address] Orthopedics & Sports Medicine, [place] [address] Historical LMR Provider 06/09/17 documented as of this encounter Additional Source Comments The information contained in this document represents components of the legal health record. It is not the complete legal health record.[facility]
--- OUTSIDE RECORDS SUMMARY | 2025-05-09 14:46 | XMS_ITS | Encounter Summary ---
Author Organization [facility] Address [address] [place] [address] Phone Care Team Providers Care Workplace Relations Adviser Name Role Phone See Wan MD Unavailable Anay Bliss MD Unavailable [phone] David Patel DO Unavailable [phone] Demetrio Gonzales MD Primary Care Provider Lucius Hannon MD Primary Care Provid er Encounter Details Date Type Department Care Team (Late st Contact Info) Description 09/10/2022 Ancillary Orders [facility], X-Ray - [address] [address] Yusuf Olmos, DO [address] [place] [address] [email or web address] Gluteal tendinitis, left hip Social History Tobacco [...] Description 05/14/2025 8:00 AM EDT Office Visit [facility] Rheumatology [address] [place] [address] Anay Bliss MD [address] [facility], [address] [place] [address] [email or web address] 06/20/2025 8:00 AM EDT Office Visit [facility] Orthopedics & Sports Medicine [address] [place] [address] Cameron Hayward PA-C [address] [place] [address] [place] [address] [email or web address] 07/16/2025 Procedure Pass OR Admitting Dept - Virtual Department [address] [place] [address] 07/16/2025 7:30 AM EST Hospital Encounter OR Admitting Dept - Virtual Department [address] [place] [address] David Patel DO [facility] Orthopedics & Sports [facility], [place] [address] 07/16/2025 7:30 AM EST - 07/16/2025 9:55 AM EST Surgery OR Admitting Dept - Virtual Department [address] [place] [address] David Patel DO 4 [facility] Orthopedics & Sports [facility], [place] [address] ARTHROPLASTY ANATOMIC INVERSE SHOULDER 08/01/2025 8:00 AM EST Office Visit [facility] Orthopedics & Sports Medicine [address] [place] [address] Cameron Hayward PA-C [address] [place] [address] [place] [address] [email or web address] 08/29/2025 9:00 AM EST Office Visit [facility] Orthopedics & Sports Medicine [address] [place] [address] David Patel DO [address] [place] [address] Orthopedics & Sports Medicine, [facility] [place] [address] Scheduled Procedures Name Priority Associated Diagnoses Date/Ti [...] sequela documented in this encounter Care Teams Workplace Relations Adviser Relationship Specialty Start Date End Date Demetrio Gonzales MD [address] [place] [address] PCP - General 06/10/17 11/26/24 Lucius Hannon MD [address] [place] [address] PCP - General Internal Medicine 11/27/24 See Wan MD [address] [place] [address] Historical LMR Provider 06/09/17 Anay Bliss MD [address] [place] [address], [address] [place] [address] Historical LMR Provider 06/09/17 David Patel DO [address] [place] [address] Orthopedics & Sports Medicine, [place] [address] [email or web address] Historical LMR Provider 06/09/17 documented as of this encounter Additional Source Comments The information contained in this document represents components of the legal health record. It is not the complete legal health record.[facility]
--- OUTSIDE RECORDS SUMMARY | 2025-05-09 14:46 | XMS_ITS | Patient Health Record ---
Author Organization [facility] Address [address] [place] [phone] Care Team Providers Care Electricity Trading Analyst Name Role Phone Christian (RETIRED) Demetrio RENDON Primary Care Provide Jose J Betancourt [phone] Allergies Allergen (clinical drug ingredient) Drug/Non Drug [...] W/U Status Risk Notes Problem Esophageal reflux (849086386) Esophageal reflux (K21.9) Active confirmed Problem [id number] Encounter for screening for malignant neoplasm of colon (Z12.11) Active confirmed Problem 651954223 Irritable bowel syndrome with diarrhea (K58.0) Active confirmed Problem Dysphagia (49821762) Dysphagia (R13.10) Active confirmed Problem Benign neoplasm of stomach (01864667) Gastric polyps (K31.7) Active confirmed Problem Gastritis (2393913) Gastritis (K29.70) Active confirmed Problem 90696173 Incontinence of feces, unspecified fecal incontinence type (R15.9) Active confirmed Problem 308179545 Gastroesophageal reflux disease, unspecified whether esophagitis present (K21.9) Active confirmed Problem 45199868 Esophageal dysph agia (R13.19) Active confirmed Encounters Encounter Location Date Provider Diagnosis [facility] [address] [place] [phone] 06/27/2024 Jose J Santamaria [facility] [address] [place] [phone] 07/24/2024 Jose J Santamaria Plan Of Treatment [...] OF [place]ENDIE [address] [place] [id number] CASHBRYANNALAURO Self - patient is the insured CALL[place] [address] [address] [place] [address] [id number] LAURO CASH Self - patient is the [...] disease profile in January of 2015 Denies NH,DM,CVA,renal disease Urinary incontinence Negative colonoscopy in 2019, although t he prep was somewhat limited Surgical History Surgery Date(Month/Year) Both shoulder replacements 2016/2017 Both elbows Umbillical hernia Tubal ligation Left knee replacement 2017 Bilateral eyes
--- OUTSIDE RECORDS SUMMARY | 2025-05-09 14:47 | XMS_ITS | Encounter Summary ---
Author Organization [facility] Address [address] [place] [address] [place] [address] Phone Care Team Providers Care Pattern Puncher Name Role Phone See Wan MD Unavailable [phone] Anay Bliss MD Unavailable [phone] Tammi Corral PA-C Unavailable [phone] David Patel DO Unavailable Demetrio Gonzales MD Unavailable Linette Echeverria PA-C Unavailable Cirilo Bernard MD Unavailable [phone] Akil Jenkins MD Unavailable [phone] Demetrio Gonzales MD Primary Care Provider Lucius Hannon MD Primary Care Provid er Encounter Details Date Type Department Care Team (Late st Contact Info) Description 06/22/2018 Ancillary Orders [facility] [address] [place] [address] Suad Hardy MD 22 [facility], [address] [place] [address] [email or web address] Breast screening Social History Tobacco Use Types [...] Description 05/14/2025 8:00 AM EDT Office Visit [facility] Rheumatology [address] [place] [address] [place] [address] Anay Bliss MD [address] [place] [address], [address] [place] [address] [email or web address] 06/20/2025 8:00 AM EDT Office Visit [facility] Orthopedics & Sports Medicine [address] [place] [address] Cameron Hayward PA-C [address] [place] [address] [place] [address] [email or web address] 07/16/2025 Procedure Pass OR Admitting Dept - Virtual Department [address] [place] [address] 07/16/2025 7:30 AM EST Hospital Encounter OR Admitting Dept - Virtual Department [address] [place] [address] David Patel DO 4 [facility] Orthopedics & Sports Medicine, [facility] [place] [address] 07/16/2025 7:30 AM EST - 07/16/2025 9:55 AM EST Surgery OR Admitting Dept - Virtual Department [address] [place] [address] David Patel DO 4 [facility] Orthopedics & Sports [facility] [place] [address] [email or web address] ARTHROPLASTY ANATOMIC INVERSE SHOULDER 08/01/2025 8:00 AM EST Office Visit [facility] Orthopedics & Sports Medicine [address] [place] [address] Cameron Hayward PA-C [address] [place] [address] [place] [address] [email or web address] 08/29/2025 9:00 AM EST Office Visit [facility] Orthopedics & Sports Medicine [address] [place] [address] David Patel DO [address] [place] [address] Orthopedics & Sports [facility], [facility] [place] [address] Scheduled Procedures Name Priority Associated Diagnoses Date/Ti [...] sequela documented in this encounter Care Teams Pattern Puncher Relationship Specialty Start Date End Date Demetrio Gonzales MD [address] [place] [address] PCP - General 06/10/17 11/26/24 Lucius Hannon MD [address] [place] [address] PCP - General Internal Medicine 11/27/24 See Wan MD [address] [place] [address] [email or web address] Historical LMR Provider 06/09/17 Anay Bliss MD [address] [place] [address], [address] [place] [address] Historical LMR Provider 06/09/17 Tammi Corral PA-C 4 [facility] Orthopedics & Sports [facility], [place] [address] Historical LMR Provider 06/09/17 08/30/21 David Patel DO 4 [facility] Orthopedics Sports [facility], [place] [address] Historical LMR Provider 06/09/17 Demetrio Gonzales MD [address] [place] [address] [place] [address] Historical LMR Provider 06/09/17 2 Linette Echeverria PA-C [address] [place] [address] Orthopedics & Sports [facility], [place] [address] Historical LMR Provider 06/09/17 08/30/21 Cirilo Bernard MD [address] [place] [address] 102 [place] [address] Historical LMR Provider 06/09/17 08/30/21 Akil Jenkins MD [address] [place] [address] Historical LMR Provider 06/09/17 2 documented as of this encounter Additional Source Comments The information contained in this document represents components of the legal health record. It is not the complete legal health record.[facility]
--- OUTSIDE RECORDS SUMMARY | 2025-05-09 14:47 | XMS_ITS | Encounter Summary ---
Author Organization [facility] Address [address] [place] [address] Phone Care Team Providers Care Spring Tester Name Role Phone See Wan MD Unavailable [phone] Anay Bliss MD Unavailable Tammi Corral PA-C Unavailable [phone] David Patel DO Unavailable [phone] Demetrio Gonzales MD Unavailable Linette Echeverria PA-C Unavailable Cirilo Bernard MD Unavailable Akil Jenkins MD Unavailable [phone] Demetrio Gonzales MD Primary Care Provider Lucius Hannon MD Primary Care Provid er Reason for Referral * MRI/CAT Scan - Closed Specialty Diagnoses / Procedures Referred By Edmond t Referred To Contact Radiology Diagnoses White matter disease Dizziness Seizures Procedures MRI Brain Tee Oneal MD Phone: tel: fax: [email or web address] Referral ID Status Reason Start Date Expiration Date Visits Re quested Visits Authorized [id number] Closed 04/12/2018 07/11/2018 1 1 Encounter Details Date Type Department Care Team (Late st Contact Info) Description 04/12/2018 Ancillary Orders Virtual Department [address] [place] [address] Tee Oneal MD [address] [place] [address], [address] [place] [address] [email or web address] White matter disease; Dizziness; Seizures [...] Description 05/14/2025 8:00 AM EDT Office Visit [facility] Rheumatology [address] [place] [address] Anay Bliss MD [address] [place] [address], [address] [place] [address] [email or web address] 06/20/2025 8:00 AM EDT Office Visit [facility] Orthopedics & Sports Medicine [address] [place] [address] Cameron Hayward PA-C [address] [place] [address] [place] [address] [email or web address] 07/16/2025 Procedure Pass OR Admitting Dept - [facility] Department [address] [place] [address] 07/16/2025 7:30 AM EST Hospital Encounter OR Admitting Dept - Virtual Department [address] [place] [address] David Patel, DO 4 [facility] Orthopedics & Sports [facility] [place] [address] 07/16/2025 7:30 AM EST - 07/16/2025 9:55 AM EST Surgery OR Admitting Dept - Virtual Department [address] [place] [address] David Patel, DO 4 [facility] Orthopedics & Sports Medicine[facility] [place] [address] ARTHROPLASTY ANATOMIC INVERSE SHOULDER 08/01/2025 8:00 AM EST Office Visit [facility] Orthopedics & Sports Medicine [address] [place] [address] Cameron Hayward PA-C [address] [place] [address] [place] [address] [email or web address] 08/29/2025 9:00 AM EST Office Visit [facility] Orthopedics & Sports Medicine [address] [place] [address] David Patel DO [address] [place] [address] [facility] [place] [address] Scheduled Procedures Name Priority Associated Diagnoses Date/Ti [...] and diffusion-weighted imaging with ADC map, coronal [id number] and STIR, sagittal T1 and T2 FLAIR [...] sequela documented in this encounter Care Teams Spring Tester Relationship Specialty Start Date End Date Demetrio Gonzales MD [address] [place] [address] PCP - General 06/10/17 11/26/24 Lucius Hannon MD [address] [place] [address] PCP - General Internal Medicine 11/27/24 See Wan MD [address] [place] [address] Historical LMR Provider 06/09/17 Anay Bliss MD [address] [place], [place] [address] [address] Historical LMR Provider 06/09/17 Tammi Corral PA-C [address] [place] [address] Orthopedics Sports [facility], [place] [address] Historical LMR Provider 06/09/17 08/30/21 David Patel DO [address] [place] [address] [facility] [place] [address] Historical LMR Provider 06/09/17 Demetrio Gonzales MD [address] [place] [address] [place] [address] Historical LMR Provider 06/09/17 2 Linette Echeverria PA-C [address] [place] [address] [place] [address] Historical LMR Provider 06/09/17 08/30/21 Cirilo Bernard MD [address] [place] [address], [facility] [address] [place] [address] Historical LMR Provider 06/09/17 08/30/21 Akil Jenkins MD [address] [place] [address] Historical LMR Provider 06/09/17 2 documented as of this encounter Additional Source Comments The information contained in this document represents components of the legal health record. It is not the complete legal health record.[facility]
--- OUTSIDE RECORDS SUMMARY | 2025-05-09 14:47 | XMS_ITS | Encounter Summary ---
Author Organization [facility] Address [address] [place] [address] Phone Care Team Providers Care Block Hand Name Role Phone See Wan MD Unavailable Anay Bliss MD Unavailable Tammi Corral PA-C Unavailable [phone] David Patel DO Unavailable [phone] Demetrio Gonzales MD Unavailable [phone] Linette Echeverria PA-C Unavailable Cirilo Bernard MD Unavailable [phone] Akil Jenkins MD Unavailable [phone] Demetrio Gonzales MD Primary Care Provider Lucius Hannon MD Primary Care Provid er Encounter Details Date Type Department Care Team (Latest Contact Info) Description 09/27/2019 Transcribe Orders [facility] [address] [place] [phone] Tee Oneal MD [address] [place] [address], [address] [place] [address] [email or web address] Nonintractable headache, unspecified chronicity pattern, unspecified [...] Description 05/14/2025 8:00 AM EDT Office Visit [facility] Rheumatology [address] [place] [address] Anay Bliss MD [address] [place] [address], [address] [place] [address] [email or web address] 06/20/2025 8:00 AM EDT Office Visit [facility] Orthopedics & Sports Medicine [address] [place] [address] Cameron Hayward PA-C [address] [place] [address] [place] [address] [email or web address] 07/16/2025 Procedure Pass OR Admitting Dept - Virtual Department [address] [place] [address] 07/16/2025 7:30 AM EST Hospital Encounter OR Admitting Dept - Virtual Department [address] [place] [address] David Patel DO [address] [place] [address] Orthopedics & Sports Medicine, [facility] [place] [address] 07/16/2025 7:30 AM EST - 07/16/2025 9:55 AM EST Surgery OR Admitting Dept - Virtual Department [address] [place] [address] David Patel DO [address] [place] [address] Orth[facility] [place] [address] ARTHROPLASTY ANATOMIC INVERSE SHOULDER 08/01/2025 8:00 AM EST Office Visit [facility] Orthopedics & Sports [address] [address] Cameron Hayward PA-C [address] [place] [address] [place] [address] [email or web address] 08/29/2025 9:00 AM EST Office Visit [facility] Orthopedics & Sports [address] [address] David Patel DO 4 [facility] Orthopedics & [facility] [address] Scheduled Procedures Name Priority Associated Diagnoses Date/Ti me ARTHROPLASTY ANATOMIC INVERSE SHOULDER Instability of prosthetic shoulder joint, sequela 07/16/2025 7:30 AM EST documented as of this encounter Results * CBC (09/27/2019 10:43 AM EST) [facility] Signature WBC 5.38 4.00 - 11.00 K/uL [facility] Comment:Note Reference Range updates to all CBC and Differential results. RBC 4.54 3.72 - 5.30 M/uL [facility] HGB 14.3 11.4 - 15.9 g/dL [facility] Comment:Note updated Referen ce Ranges for all CBC and Differential results. HCT 41.7 34.2 - 46.8 % [facility] PLT 224 140 - 430 K/uL [facility] MCV 91.9 78.0 - 97.0 fL [facility] MCH 31.5 25.0 - 33.0 pg [facility] MCHC 34.3 32.0 - 36.0 g/dL [facility] RDW 13.2 11.0 - 16.0 % [facility] MPV 10.3 8.4 - 12.8 [facility] NRBC 0.00 0 /100 WBCs [facility] ABSOLUTE NRBC 0.00 0 K/uL [facility] Blood 09/27/2019 10:4 3 AM EST 09/27/2019 10:47 AM EST us Tee Oneal MD LAB BLOOD ORDERABLES Final R esult Performing Organization Address City/[facility] Co de Phone Number [address] [address] * LFTs (hepatic panel) (09/27/2019 10:43 AM EST) [facility] 72 39 - 117 U/L [facility] TOTAL BILIRUBIN 0.3 0.0 - 1.2 mg/dL [facility] DIRECT BILIRUBIN <0.2 0 - 0.3 mg/dL [facility] Bilirubin (Indirect) NOT CALCULATED 0 - 1.5 mg/dL [facility] AST 32 0 - 37 U/L [facility] ALT 25 0 - 40 U/L [facility] TOTAL PROTEIN 7.3 6.5 - 8.0 g/dL [facility] ALBUMIN 4.5 3.9 - 4.8 g/dL [facility] GLOBULIN 2.8 1 - 4.8 g/dL [facility] A/G Ratio 1.61 1.00 - 4.80 RATIO [facility] Blood 09/27/2019 10:4 3 AM EST 09/27/2019 10:47 AM EST us Tee Oneal MD LAB BLOOD ORDERABLES Final R esult Performing Organization Address City/[facility]/ZIP Co de Phone Number [address] [address] documented in this encounter Visit Diagnoses Diagnosis Nonintractable headache, unspecified chronicity pattern, unspecified headache type- Primary Instability of prosthetic shoulder joint, sequela documented in this encounter Care Teams Block Hand Relationship Specialty Start Date End Date Demetrio Gonzales MD [address] [place] [address] [place] [address] PCP - General 06/10/17 11/26/24 Lucius Hannon MD [address] [place] [address] PCP - General Internal Medicine 11/27/24 See Wan MD [address] [place] [address] [email or web address] Historical LMR Provider 06/09/17 Anay Bliss MD [address] [place] [address] 203 [place] [address] Historical LMR Provider 06/09/17 Tammi Corral PA-C [address] [place] [address] Orthopedics & Sports [facility] [place] [address] Historical LMR Provider 06/09/17 08/30/21 David Patel DO [address] [place] [address] Orthopedics Sports [facility], [place] [address] Historical LMR Provider 06/09/17 Demetrio Gonzales MD [address] [place] [address] [place] [address] Historical LMR Provider 06/09/17 2 Linette Echeverria PA-C [address] [place] [address] Orthopedics & Sports [facility], [place] [address] [email or web address] Historical LMR Provider 06/09/17 08/30/21 Cirilo Bernard MD [address] [place] [address] [email or web address] Historical LMR Provider 06/09/17 08/30/21 Akil Jenkins MD [address] [place] [address] Historical LMR Provider 06/09/17 2 documented as of this encounter Additional Source Comments The information contained in this document represents components of the legal health record. It is not the complete legal health record.[facility]
--- OUTSIDE RECORDS SUMMARY | 2025-05-09 14:47 | XMS_ITS | Encounter Summary ---
Author Organization [facility] Address [address] [place] [address] Phone Care Team Providers Care Trust Mail Clerk Name Role Phone See Wan MD Unavailable [phone] Anay Bliss MD Unavailable [phone] Tammi Corral PA-C Unavailable [phone] David Patel DO Unavailable [phone] Demetrio Gonzales MD Unavailable Linette Echeverria PA-C Unavailable Cirilo Bernard MD Unavailable Akil Jenkins MD Unavailable [phone] Demetrio Gonzales MD Primary Care Provider Lucius Hannon MD Primary Care Provid er Encounter Details Date Type Department Care Team (Late st Contact Info) Description 04/12/2018 Procedure Pass [facility], [address] [address] Social History Tobacco Use Types Packs/Day Years [...] Description 05/14/2025 8:00 AM EDT Office Visit [facility] Rheumatology [address] [place] [address] [place] [address] Anay Bliss MD 22 [facility], [address] [place] [address] [email or web address] 06/20/2025 8:00 AM EDT Office Visit [facility] Orthopedics & Sports Medicine [address] [place] [address] Cameron Hayward PA-C [address] [place] [address] [place] [address] [email or web address] 07/16/2025 Procedure Pass OR Admitting Dept - Virtual Department [address] [place] [address] 07/16/2025 7:30 AM EST Hospital Encounter OR Admitting Dept - Virtual Department [address] [place] [address] David Patel DO [address] [place] [address] Orthopedics & Sports Medicine, [place] [address] 07/16/2025 7:30 AM EST - 07/16/2025 9:55 AM EST Surgery OR Admitting Dept - Virtual Department [address] [place] [address] David Patel DO [address] [place] [address] Orthopedics & Sports [facility] [place] [address] ARTHROPLASTY ANATOMIC INVERSE SHOULDER 08/01/2025 8:00 AM EST Office Visit [facility] Orthopedics & Sports Medicine [address] [place] [address] Cameron Hayward PA-C [address] [place] [address] [place] [address] [email or web address] 08/29/2025 9:00 AM EST Office Visit [facility] Orthopedics & Sports [address] [address] David Patel DO [address] [place] [address] Orthopedics & Sports [facility], [place] [address] [email or web address] Scheduled Procedures Name Priority Associated Diagnoses Date/Ti me ARTHROPLASTY ANATOMIC INVERSE SHOULDER Instability of prosthetic shoulder joint, sequela 07/16/2025 7:30 AM EST documented as of this encounter Visit Diagnoses Not on filedocumented in this encounter Care Teams Trust Mail Clerk Relationship Specialty Start Date End Date Demetrio Gonzales MD [address] [place] [address] PCP - General 06/10/17 11/26/24 Lucius Hannon MD [address] [place] [address] [place] [address] PCP - General Internal Medicine 11/27/24 See Wan MD [address] [place] [id number] [email or web address] Historical LMR Provider 06/09/17 Anay Bliss MD 22 [facility], [facility] 203 [place] [address] Historical LMR Provider 06/09/17 Tammi Corral PA-C [address] [place] [address] Orthopedics & Sports [facility], [place] [address] Historical LMR Provider 06/09/17 08/30/21 David Patel DO [address] [place] [address] Orthopedics Sports [facility], [place] [address] Historical LMR Provider 06/09/17 Demetrio Gonzales MD [address] [place] [address] [place] [address] Historical LMR Provider 06/09/17 2 Linette Echeverria PA-C [address] [place] [address] Orthopedics Sports [facility], [place] [address] Historical LMR Provider 06/09/17 08/30/21 Cirilo Bernard MD [address] [place] [address], [address] [place] [address] Historical LMR Provider 06/09/17 08/30/21 Akil Jenkins MD [address] [place] [address] Historical LMR Provider 06/09/17 2 documented as of this encounter Additional Source Comments The information contained in this document represents components of the legal health record. It is not the complete legal health record.[facility]
--- OUTSIDE RECORDS SUMMARY | 2025-05-09 14:47 | XMS_ITS | Encounter Summary ---
Author Organization [facility] Address [address] [place] [address] Phone Care Team Providers Care Sales Review Clerk Name Role Phone See Wan MD Unavailable Anay Bliss MD Unavailable [phone] Tammi Corral PA-C Unavailable [phone] David Patel DO Unavailable [phone] Demetrio Gonzales MD Unavailable [phone] Linette Echeverria PA-C Unavailable Cirilo Bernard MD Unavailable Akil Jenkins MD Unavailable [phone] Demetrio Gonzales MD Primary Care Provider Lucius Hannon MD Primary Care Provid er Encounter Details Date Type Department Care Team (Late st Contact Info) Description 01/29/2021 Procedure Pass [facility], Ct Scan - [address] [id number] Social History Tobacco Use Types Packs/Day Years [...] 8:31 AM EDT Latasha Quiroga RN * [place] Suicide Severity Rating Scale (Screener/Recent Self-Report) Question [...] Description 05/14/2025 8:00 AM EDT Office Visit [facility] Rheumatology [address] [place] [address] Anay Bliss MD [address] [place] [address], [address] [place] [address] [email or web address] 06/20/2025 8:00 AM EDT Office Visit [facility] Orthopedics & Sports Medicine [address] [place] [address] Cameron Hayward PA-C [address] [place] [address] [place] [address] [email or web address] 07/16/2025 Procedure Pass OR Admitting Dept - Virtual Department [address] [place] [address] 07/16/2025 7:30 AM EST Hospital Encounter OR Admitting Dept - Virtual Department [address] [place] [address] David Patel DO [address] [place] [address] Orthopedics & Sports Medicine, [place] [address] 07/16/2025 7:30 AM EST - 07/16/2025 9:55 AM EST Surgery OR Admitting Dept - [facility] Department [address] [place] [address] David Patel DO [address] [place] [address] Orthopedics & Sports [facility], [place], [place] [id number] ARTHROPLASTY ANATOMIC INVERSE SHOULDER 08/01/2025 8:00 AM EST Office Visit [facility] [address] [place] [address] Cameron Hayward PA-C [address] [place] [address] [place] [address] [email or web address] 08/29/2025 9:00 AM EST Office Visit [facility] [address] [place] [address] David Patel DO [address] [place] [address] Orthopedics & Sports [facility], [place] [address] Scheduled Procedures Name Priority Associated Diagnoses Date/Ti me ARTHROPLASTY ANATOMIC INVERSE SHOULDER Instability of prosthetic shoulder joint, sequela 07/16/2025 7:30 AM EST documented as of this encounter Visit Diagnoses Not on filedocumented in this encounter Care Teams Sales Review Clerk Relationship Specialty Start Date End Date Demetrio Gonzales MD [address] [place] [address] [place] [address] PCP - General 06/10/17 11/26/24 Lucius Hannon MD [address] [place] [address] [place] [address] PCP - General Internal Medicine 11/27/24 See Wan MD [address] [place] [address] [email or web address] Historical LMR Provider 06/09/17 Anay Bliss MD [address] [place] [address], [address] [place] [address] Historical LMR Provider 06/09/17 Tammi Corral PA-C [address] [place] [address] Orthopedics Sports [facility], [place] [address] Historical LMR Provider 06/09/17 08/30/21 David Patel DO [address] [place] [address] Orthopedics Sports [facility], [place] [address] Historical LMR Provider 06/09/17 Demetrio Gonzales MD [address] [place] [address] [place] [address] Historical LMR Provider 06/09/17 Linette Patel PA-C [address] [place] [address] Orthopedics Sports [facility], [place] [address] Historical LMR Provider 06/09/17 08/30/21 Cirilo Bernard MD [address] [place] [address], [address] [place] [address] Historical LMR Provider 06/09/17 08/30/21 Akil Jenkins MD [address] [place] [address] Historical LMR Provider 06/09/17 2 documented as of this encounter Additional Source Comments The information contained in this document represents components of the legal health record. It is not the complete legal health record.[facility]
--- OUTSIDE RECORDS SUMMARY | 2025-05-09 14:47 | XMS_ITS | Encounter Summary ---
Author Organization [facility] Address [address] [place] [address] Phone Care Team Providers Care Talent Partner Name Role Phone See Wan MD Unavailable [phone] Anay Bliss MD Unavailable Tammi Corral PA-C Unavailable [phone] David Patel DO Unavailable Demetrio Gonzales MD Unavailable Linette Echeverria PA-C Unavailable [phone] Cirilo Bernard MD Unavailable Akil Jenkins MD Unavailable [phone] Demetrio Gonzales MD Primary Care Provider Lucius Hannon MD Primary Care Provid er Encounter Details Date Type Department Care Team (Late st Contact Info) Description 01/29/2021 Procedure Pass [facility], Ct Scan - [address] [id number] Social History Tobacco Use Types Packs/Day Years [...] 8:31 AM EDT Latasha Quiroga RN * [place] Suicide Severity Rating Scale (Screener/Recent Self-Report) Question [...] Description 05/14/2025 8:00 AM EDT Office Visit [facility] Rheumatology [address] [place] [address] Anay Bliss MD [address] [place] [address], [address] [place] [address] [email or web address] 06/20/2025 8:00 AM EDT Office Visit [facility] Orthopedics & Sports Medicine [address] [place] [address] Cameron Hayward PA-C [address] [place] [address] [place] [address] [email or web address] 07/16/2025 Procedure Pass OR Admitting Dept - Virtual Department [address] [place] [address] 07/16/2025 7:30 AM EST Hospital Encounter OR Admitting Dept - Virtual Department [address] [place] [address] David Patel DO [address] [place] [address] Orthopedics & Sports Medicine, [place] [address] 07/16/2025 7:30 AM EST - 07/16/2025 9:55 AM EST Surgery OR Admitting Dept - [facility] Department [address] [place] [address] David Patel DO [address] [place] [address] Orthopedics & Sports [facility], [place], [place] [phone] ARTHROPLASTY ANATOMIC INVERSE SHOULDER 08/01/2025 8:00 AM EST Office Visit [facility] Orthopedics & Sports Medicine [address] [place] [address] Cameron Hayward PA-C [address] [place] [address] [place] [address] [email or web address] 08/29/2025 9:00 AM EST Office Visit [facility] Orthopedics & Sports Medicine [address] [place] [address] David Patel DO [address] [place] [address] Orthopedics & Sports [facility], [place] [address] Scheduled Procedures Name Priority Associated Diagnoses Date/Ti me ARTHROPLASTY ANATOMIC INVERSE SHOULDER Instability of prosthetic shoulder joint, sequela 07/16/2025 7:30 AM EST documented as of this encounter Visit Diagnoses Not on filedocumented in this encounter Care Teams Talent Partner Relationship Specialty Start Date End Date Demetrio Gonzales MD [address] [place] [address] [place] [address] PCP - General 06/10/17 11/26/24 Lucius Hannon MD [address] [place] [address] [place] [address] PCP - General Internal Medicine 11/27/24 See Wan MD [address] [place] [address] [email or web address] Historical LMR Provider 06/09/17 Anay Bliss MD [address] [place] [address], [address] [place] [address] Historical LMR Provider 06/09/17 Tammi Corral PA-C [address] [place] [address] Orthopedics Sports [facility], [place] [address] Historical LMR Provider 06/09/17 08/30/21 David Patel DO [address] [place] [address] Orthopedics Sports [facility], [place] [address] Historical LMR Provider 06/09/17 Demetrio Gonzales MD [address] [place] [address] [place] [address] Historical LMR Provider 06/09/17 Linette Patel PA-C [address] [place] [address] Orthopedics Sports [facility], [place] [address] Historical LMR Provider 06/09/17 08/30/21 Cirilo Bernard MD [address] [place] [address], [address] [place] [address] Historical LMR Provider 06/09/17 08/30/21 Akil Jenkins MD [address] [place] [address] Historical LMR Provider 06/09/17 2 documented as of this encounter Additional Source Comments The information contained in this document represents components of the legal health record. It is not the complete legal health record.[facility]
--- OUTSIDE RECORDS SUMMARY | 2025-05-09 14:47 | XMS_ITS | Encounter Summary ---
Author Organization [facility] Address [address] [place] [address] Phone Care Team Providers Care Saddle Mechanic Name Role Phone See Wan MD Unavailable [phone] Anay Bliss MD Unavailable [phone] Tammi Corral PA-C Unavailable [phone] David Patel DO Unavailable [phone] Demetrio Gonzales MD Unavailable Linette Echeverria PA-C Unavailable Cirilo Bernard MD Unavailable Akil Jenkins MD Unavailable [phone] Demetrio Gonzales MD Primary Care Provider Lucius Hannon MD Primary Care Provid er Encounter Details Date Type Department Care Team (Latest Contact Info) Description 02/13/2019 Transcribe Orders [facility] [address] [place] [address] Tee Oneal MD [address] [place] [address], [address] [place] [address] [email or web address] Numbness (Primary Dx) Social History Tobacco [...] Description 05/14/2025 8:00 AM EDT Office Visit [facility] Rheumatology [address] [place] [address] Anay Bliss MD [address] [facility], [address] [place] [address] [email or web address] 06/20/2025 8:00 AM EDT Office Visit [facility] Orthopedics & Sports Medicine [address] [place] [address] Cameron Hayward PA-C [address] [place] [address] [place] [address] [email or web address] 07/16/2025 Procedure Pass OR Admitting Dept - Virtual Department [address] [place] [address] 07/16/2025 7:30 AM EST Hospital Encounter OR Admitting Dept - Virtual Department [address] [place] [address] David Patel DO [address] [place] [address] Orthopedics & Sports Medicine, [place] [address] 07/16/2025 7:30 AM EST - 07/16/2025 9:55 AM EST Surgery OR Admitting Dept - Virtual Department [address] [place] [address] David Patel DO 4 [facility] Orthopedics & Sports Medicine, [place] [address] ARTHROPLASTY ANATOMIC INVERSE SHOULDER 08/01/2025 8:00 AM EST Office Visit [facility] Orthopedics & Sports Medicine [address] [place] [address] Cameron Hayward PA-C [address] [place] [address] [place] [address] [email or web address] 08/29/2025 9:00 AM EST Office Visit [facility] Orthopedics & Sports Medicine [address] [place] [address] [id number] David Patel DO [address] [place] [address] Orth[facility] [place] [address] Scheduled Procedures Name Priority Associated Diagnoses Date/Ti me ARTHROPLASTY ANATOMIC INVERSE SHOULDER Instability of prosthetic shoulder joint, sequela 07/16/2025 7:30 AM EST documented as of this encounter Results * (ABNORMAL) Glucose (02/13/2019 8:42 AM EDT) GLUCOSE 111(H) 70 - 99 mg/dL [facility] Blood 02/13/2019 8:42 AM EDT 02/13/2019 9:20 AM EDT us Tee Onela MD LAB BLOOD ORDERABLES Final R esult [facility] [address] [place] [address] documented in this encounter Visit Diagnoses Diagnosis Numbness- Primary Disturbance of skin sensation Instability of prosthetic shoulder joint, sequela documented in this encounter Care Teams Saddle Mechanic Relationship Specialty Start Date End Date Demetrio Gonzales MD [address] [place] [address] [place] [address] PCP - General 06/10/17 11/26/24 Lucius Hannon MD [address] [place] [address] PCP - General Internal Medicine 11/27/24 See Wan MD [address] [place] [address] [email or web address] Historical LMR Provider 06/09/17 Anay Bliss MD [address] [place] [address], [address] [place] [address] Historical LMR Provider 06/09/17 Tammi Corral PA-C [address] [place] [address] Orthopedics Sports [facility], [place] [address] Historical LMR Provider 06/09/17 08/30/21 David Patel DO [address] [place] [address] Orthopedics Sports [facility], [place] [address] Historical LMR Provider 06/09/17 Demetrio Gonzales MD [address] [place] [address] Historical LMR Provider 06/09/17 2 Linette Echeverria PA-C [address] [place] [address] Orthopedics Sports [facility], [place] [address] Historical LMR Provider 06/09/17 08/30/21 Cirilo Bernard MD [address] [place] [address] [email or web address] Historical LMR Provider 06/09/17 08/30/21 Akil Jenkins MD [address] [place] [address] Historical LMR Provider 06/09/17 2 documented as of this encounter Additional Source Comments The information contained in this document represents components of the legal health record. It is not the complete legal health record.[facility]
--- OUTSIDE RECORDS SUMMARY | 2025-05-09 14:47 | XMS_ITS | Encounter Summary ---
Author Organization [facility] Address [address] [place] [address] Phone Care Team Providers Care Editor Trade Journal Name Role Phone See Wan MD Unavailable [phone] Anay Bliss MD Unavailable [phone] Tammi Corral PA-C Unavailable [phone] David Patel DO Unavailable [phone] Demetrio Gonzales MD Unavailable Linette Echeverria PA-C Unavailable Cirilo Bernard MD Unavailable Akil Jenkins MD Unavailable [phone] Demetrio Gonzales MD Primary Care Provider Lucius Hannon MD Primary Care Provid er Encounter Details Date Type Department Care Team (Latest Contact Info) Description 07/20/2018 Ancillary Orders Virtual Department [address] [place] [address] Dony Aguero MD [address] [address] Left knee pain, unspecified chronicity; Other mechanical [...] Description 05/14/2025 8:00 AM EDT Office Visit [facility] Rheumatology [address] [place] [address] [place] [address] Anay Bliss MD [address] [place] [address], [address] [place] [address] [email or web address] 06/20/2025 8:00 AM EDT Office Visit [facility] Orthopedics & Sports Medicine [address] [place] [address] Cameron Hayward PA-C [address] [place] [address] [place] [address] [email or web address] 07/16/2025 Procedure Pass OR Admitting Dept - Virtual Department [address] [place] [address] 07/16/2025 7:30 AM EST Hospital Encounter OR Admitting Dept - Virtual Department [address] [place] [address] David Patel DO 4 [facility] Orthopedics & Sports Medicine, [facility] [place] [address] 07/16/2025 7:30 AM EST - 07/16/2025 9:55 AM EST Surgery OR Admitting Dept - Virtual Department [address] [place] [address] David Patel DO 4 [facility] Orthopedics & Sports [place] [place] [address] [email or web address] ARTHROPLASTY ANATOMIC INVERSE SHOULDER 08/01/2025 8:00 AM EST Office Visit [facility] Orthopedics & Sports Medicine [address] [place] [address] Cameron Hayward PA-C [address] [place] [address] [place] [address] [email or web address] 08/29/2025 9:00 AM EST Office Visit [facility] Orthopedics & Sports Medicine [address] [place] [address] David Patel DO [address] [place] [address] Orthopedics & Sports [facility], [place] [address] [email or web address] Scheduled Procedures Name Priority Associated Diagnoses Date/Ti me ARTHROPLASTY ANATOMIC INVERSE SHOULDER Instability of prosthetic shoulder joint, sequela 07/16/2025 7:30 AM EST documented as of this encounter Visit Diagnoses Diagnosis Left knee pain, unspecified chronicity 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, 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, sequela documented in this encounter Care Teams Editor Trade Journal Relationship Specialty Start Date End Date Demetrio Gonzales MD [address] [place] [address] PCP - General 06/10/17 11/26/24 Lucius Hannon MD [address] [place] [address] PCP - General Internal Medicine 11/27/24 See Wan MD [address] [place] [address] [id number] Historical LMR Provider 06/09/17 Anay Bliss MD 22 [facility], [facility] [address] [place] [address] Historical LMR Provider 06/09/17 Tammi Corral PA-C [address] [place] [address] [place] [address] Historical LMR Provider 06/09/17 08/30/21 David Patel DO [address] [place] [address] [facility] [address] [email or web address] Historical LMR Provider 06/09/17 Demetrio Gonzales MD [address] [place] [address] [place] [address] Historical LMR Provider 06/09/17 Linette Patel PA-C [address] [place] [address] [facility] [place] [place] [address] Historical LMR Provider 06/09/17 08/30/21 Cirilo Bernard MD [address] [place] [address], [address] [place] [address] Historical LMR Provider 06/09/17 08/30/21 Akil Jenkins MD [address] [place] [address] Historical LMR Provider 06/09/17 2 documented as of this encounter Additional Source Comments The information contained in this document represents components of the legal health record. It is not the complete legal health record.[facility]
--- OUTSIDE RECORDS SUMMARY | 2025-05-09 14:47 | XMS_ITS | Encounter Summary ---
Author Organization [facility] Address [address] [place] [address] Phone Care Team Providers Care Meat Cooler Name Role Phone See Wan MD Unavailable Anay Bliss MD Unavailable Tammi Corral PA-C Unavailable [phone] David Patel DO Unavailable [phone] Demetrio Gonzales MD Unavailable Linette Echeverria PA-C Unavailable Cirilo Bernard MD Unavailable Akil Jenkins MD Unavailable [phone] Demetrio Gonzales MD Primary Care Provider Lucius Hannon MD Primary Care Provid er Reason for Referral * Outpatient Procedure - Closed Specialty Diagnoses / Procedures Referred By Edmond t Referred To Contact Radiology Diagnoses 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, initial encounter Left knee pain, unspecified chronicity Procedures NM Bone Flow 3 Phase Marah Pickens NP Phone: tel: fax: mailto:[email or web address] Referral ID Status Reason Start Date Expiration Date Visits Re quested Visits Authorized [id number] Closed 07/22/2018 07/22/2019 1 1 Encounter Details Date Type Department Care Team (Latest Contact Info) Description 07/22/2018 Ancillary Orders Virtual Department [address] [place] [address] Marah Pickens NP [address] [place] [address] [email or web address] Other mechanical complication of internal left knee [...] Description 05/14/2025 8:00 AM EDT Office Visit [facility] Rheumatology [address] [place] [address] [place] [address] Anay Bliss MD [address] [place] [address], [address] [place] [address] [email or web address] 06/20/2025 8:00 AM EDT Office Visit [facility] Orthopedics & Sports Medicine [address] [place] [address] Cameron Hayward PA-C [address] [place] [address] [place] [address] [email or web address] 07/16/2025 Procedure Pass OR Admitting Dept - Virtual Department [address] [place] [address] 07/16/2025 7:30 AM EST Hospital Encounter OR Admitting Dept - Virtual Department [address] [place] [address] David Patel DO 4 [facility] Orthopedics & Sports [facility], [place] [address] 07/16/2025 7:30 AM EST - 07/16/2025 9:55 AM EST Surgery OR Admitting Dept - Virtual Department [address] [place] [address] David Patel DO 4 [facility] Orthopedics Sports [facility], [place] [address] ARTHROPLASTY ANATOMIC INVERSE SHOULDER 08/01/2025 8:00 AM EST Office Visit [facility] Orthopedics & Sports Medicine [address] [place] [address] Cameron Hayward PA-C [address] [place] [address] [place] [address] [email or web address] 08/29/2025 9:00 AM EST Office Visit [facility] Orthopedics & Sports Medicine [address] [place] [address] David Patel DO [address] [place] [address] Orthopedics & Sports [facility], [place] [address] Scheduled Procedures Name Priority Associated Diagnoses Date/Ti [...] 1/2 ago, left knee pain POS - [id number] Narrative 07/25/2018 1:37 PM EST DOSE: 24.4 [...] 1/2 ago, left knee pain POS - [id number] us Marah Pickens PUBLIC [employer]ATIONS ACCOUNT EXECUTIVE IMG NM BONE SCAN Final Result documented in this encounter Visit Diagnoses Diagnosis 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, initial encounter Left knee pain, unspecified chronicity 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, initial encounter Left knee pain, unspecified chronicity Instability of prosthetic shoulder joint, sequela documented in this encounter Care Teams Meat Cooler Relationship Specialty Start Date End Date Demetrio Gonzales MD [address] [place] [address] PCP - General 06/10/17 11/26/24 Lucius Hannon MD [address] [place] [address] PCP - General Internal Medicine 11/27/24 See Wan MD [address] [place] [address] [email or web address] Historical LMR Provider 06/09/17 Anay Bliss MD [address] [place] [address], [address] [place] [address] Historical LMR Provider 06/09/17 Tammi Corral PA-C [address] [place] [address] Orthopedics & Sports [facility], [place] [address] Historical LMR Provider 06/09/17 08/30/21 David Patel DO [address] [place] [address] Orthopedics & Sports [facility], [place] [address] Historical LMR Provider 06/09/17 Demetrio Gonzales MD [address] [place] [address] [place] [address] Historical LMR Provider 06/09/17 2 Linette Echeverria PA-C [address] [place] [address] Orthopedics & Sports Medicine, [place] [address] Historical LMR Provider 06/09/17 08/30/21 Cirilo Bernard MD [address] [place] [address] Historical LMR Provider 06/09/17 08/30/21 Akil Jenkins MD [address] [place] [address] Historical LMR Provider 06/09/17 2 documented as of this encounter Additional Source Comments The information contained in this document represents components of the legal health record. It is not the complete legal health record.[facility]
--- OUTSIDE RECORDS SUMMARY | 2025-05-09 14:47 | XMS_ITS | Encounter Summary ---
Author Organization [facility] Address [address] [place] [address] Phone Care Team Providers Care Concrete Pump Operator Helper Name Role Phone See Wan MD Unavailable Anay Bliss MD Unavailable [phone] Tammi Corral PA-C Unavailable [phone] David Patel DO Unavailable [phone] Demetrio Gonzales MD Unavailable Linette Echeverria PA-C Unavailable [phone] Cirilo Bernard MD Unavailable Akil Jenkins MD Unavailable [phone] Demetrio Gonzales MD Primary Care Provider Lucius Hannon MD Primary Care Provid er Encounter Details Date Type Department Care Team (Latest Contact Info) Description 10/23/2019 Transcribe Orders Virtual Department 30 [place], [place] [phone] Tee Oneal MD [address] [place] [address], [address] [place], [place] [phone] [email or web address] White matter disease (Primary Dx) Social [...] Description 05/14/2025 8:00 AM EDT Office Visit [facility] Rheumatology [address] [place] [address] Anay Bliss MD 22 [facility], [address] [place] [address] [email or web address] 06/20/2025 8:00 AM EDT Office Visit [facility] Orthopedics & Sports Medicine [address] [place] [address] Cameron Hayward PA-C [address] [place] [address] [place] [address] [email or web address] 07/16/2025 Procedure Pass OR Admitting Dept - Virtual Department [address] [place] [address] 07/16/2025 7:30 AM EST Hospital Encounter OR Admitting Dept - Virtual Department [address] [place] [address] 417[address] David Patel DO [address] [place] [address] Orthopedics & Sports Medicine, [place] [address] 07/16/2025 7:30 AM EST - 07/16/2025 9:55 AM EST Surgery OR Admitting Dept - Virtual Department [address] [place] [address] 59[address] David Patel DO 4 [facility] Orthopedics & Sports Medicine, [place] [address] ARTHROPLASTY ANATOMIC INVERSE SHOULDER 08/01/2025 8:00 AM EST Office Visit [facility] Orthopedics & Sports Medicine [address] [place] [address] Cameron Hayward PA-C [address] [place] [address] [place] [address] [email or web address] 08/29/2025 9:00 AM EST Office Visit [facility] Orthopedics & Sports Medicine [address] [place] [address] David Patel DO [address] [place] [address] Orthopedics & Sports [facility] [place] [facility], [place] [address] [email or web address] Scheduled Procedures Name Priority Associated Diagnoses Date/Ti me ARTHROPLASTY ANATOMIC INVERSE SHOULDER Instability of prosthetic shoulder joint, sequela 07/16/2025 7:30 AM EST documented as of this encounter Visit Diagnoses Diagnosis White matter disease- Primary Instability of prosthetic shoulder joint, sequela documented in this encounter Care Teams Concrete Pump Operator Helper Relationship Specialty Start Date End Date Demetrio Gonzales MD [address] [place] [address]21 PCP - General 06/10/17 11/26/24 Lucius Hannon MD [address] [place] [address] 41411 PCP - General Internal Medicine 11/27/24 See Wan MD [address] [place] [address] [email or web address] Historical LMR Provider 06/09/17 Anay Bliss MD [address] [place] [address] 203 [place] [address] [email or web address] Historical LMR Provider 06/09/17 Tammi Corral PA-C [address] [place] [address] Orthopedics Sports [facility] [place] [facility], [place] [address] Historical LMR Provider 06/09/17 08/30/21 David Patel DO [address] [place] [address] [place] [address] [email or web address] Historical LMR Provider 06/09/17 Demetrio Gonzales MD [address] [place] [address] [place] [address] Historical LMR Provider 06/09/17 2 Linette Echeverria PA-C [address] [place] [address] Orthopedics Sports [facility] [place] [facility], [place] [address] Historical LMR Provider 06/09/17 08/30/21 Cirilo Bernard MD [address] [place] [address] 102 [place] [address] Historical LMR Provider 06/09/17 08/30/21 Akil Jenkins MD [address] [place] [address] Historical LMR Provider 06/09/17 2 documented as of this encounter Additional Source Comments The information contained in this document represents components of the legal health record. It is not the complete legal health record.[facility]
--- OUTSIDE RECORDS SUMMARY | 2025-05-09 14:48 | XMS_ITS | Encounter Summary ---
Author Organization [facility] Address [address] [place] [address] Phone Care Team Providers Care Wire Basket Maker Name Role Phone See Wan MD Unavailable [phone] Anay Bliss MD Unavailable Tammi Corral PA-C Unavailable [phone] David Patel DO Unavailable [phone] Demetrio Gonzales MD Unavailable [phone] Linette Echeverria PA-C Unavailable [phone] Cirilo Bernard MD Unavailable Akil Jenkins MD Unavailable [phone] Demetrio Gonzales MD Primary Care Provider Lucius Hannon MD Primary Care Provid er Encounter Details Date Type Department Care Team (Late st Contact Info) Description 04/23/2020 Procedure Pass [address] [phone] Social History Tobacco Use Types Packs/Day Years [...] Description 05/14/2025 8:00 AM EDT Office Visit [facility] Rheumatology [address] [place] [address] Anay Bliss MD 22 [facility], [address] [place] [address] [email or web address] 06/20/2025 8:00 AM EDT Office Visit [facility] Orthopedics & Sports Medicine [address] [place] [address] Cameron Hayward PA-C [address] [place] [address] [place] [address] [email or web address] 07/16/2025 Procedure Pass OR Admitting Dept - Virtual Department [address] [place] [address] 07/16/2025 7:30 AM EST Hospital Encounter OR Admitting Dept - Virtual Department [address] [place] [address] David Patel, DO [address] [place] [address] Orth[facility] [place] [place] [address] 07/16/2025 7:30 AM EST - 07/16/2025 9:55 AM EST Surgery OR Admitting Dept - Virtual Department [address] [place] [address] David Patel, DO 4 [facility] Orthopedics & Sports [place], [place] [address] ARTHROPLASTY ANATOMIC INVERSE SHOULDER 08/01/2025 8:00 AM EST Office Visit [facility] Orthopedics & Sports Medicine [address] [place] [address] Cameron Hayward PA-C [address] [place] [address] [place] [address] [email or web address] 08/29/2025 9:00 AM EST Office Visit [facility] Orthopedics & Sports Medicine [address] [place] [address] David Patel DO [address] [place] [address] Orthopedics & Sports Medicine, [place] [address] [email or web address] Scheduled Procedures Name Priority Associated Diagnoses Date/Ti me ARTHROPLASTY ANATOMIC INVERSE SHOULDER Instability of prosthetic shoulder joint, sequela 07/16/2025 7:30 AM EST documented as of this encounter Visit Diagnoses Not on filedocumented in this encounter Care Teams Wire Basket Maker Relationship Specialty Start Date End Date Demetrio Gonzales MD [address] [place] [address] PCP - General 06/10/17 11/26/24 Lucius Hannon MD [address] [place] [address] 22671 PCP - General Internal Medicine 11/27/24 See Wan MD [address] [place] [address] [email or web address] Historical LMR Provider 06/09/17 Anay Bliss MD [address] [place] [address], [address] [place] [address] Historical LMR Provider 06/09/17 Tammi Corral PA-C 4 [facility] Orthopedics & Sports Medicine, [place] [address] Historical LMR Provider 06/09/17 08/30/21 David Patel DO 4 [facility] Orthopedics & Sports [facility], [place] [address] Historical LMR Provider 06/09/17 Demetrio Gonzales MD [address] [place] [address] [place] [address] Historical LMR Provider 06/09/17 2 Linette Echeverria PA-C [address] [place] [address] Orthopedics & Sports Medicine, [place] [address] Historical LMR Provider 06/09/17 08/30/21 Cirilo Bernard MD [address] [place] [address] Historical LMR Provider 06/09/17 08/30/21 Akil Jenkins MD [address] [place] [address] Historical LMR Provider 06/09/17 2 documented as of this encounter Additional Source Comments The information contained in this document represents components of the legal health record. It is not the complete legal health record.[facility]
--- OUTSIDE RECORDS SUMMARY | 2025-05-09 14:48 | XMS_ITS | Encounter Summary ---
Author Organization [facility] Address [address] [place] [address] Phone Care Team Providers Care Fish Peddler Name Role Phone See Wan MD Unavailable [phone] Anay Bliss MD Unavailable Tammi Corral PA-C Unavailable [phone] David Patel DO Unavailable [phone] Demetrio Gonzales MD Unavailable Linette Echeverria PA-C Unavailable Cirilo Bernard MD Unavailable [phone] Akil Jenkins MD Unavailable [phone] Demetrio Gonzales MD Primary Care Provider Lucius Hannon MD Primary Care Provid er Encounter Details Date Type Department Care Team (Latest Contact Info) Description 08/29/2018 Transcribe Orders [facility] [address] [place] [address] [phone] Tee Oneal MD [address] [place] [address], [address] [place] [address] [email or web address] Nonintractable headache, unspecified chronicity pattern, unspecified [...] Description 05/14/2025 8:00 AM EDT Office Visit [facility] Rheumatology 22 [place] [address] Anay Bliss MD [address] [place] [address], [address] [place] [address] [email or web address] 06/20/2025 8:00 AM EDT Office Visit [facility] Orthopedics & Sports Medicine [address] [place] [address] Cameron Hayward PA-C [address] [place] [address] [place] [address] [email or web address] 07/16/2025 Procedure Pass OR Admitting Dept - Virtual Department [address] [place] [address] 07/16/2025 7:30 AM EST Hospital Encounter OR Admitting Dept - Virtual Department [address] [place] [address] 106[address] David Patel DO [address] [place] [address] Orthopedics & Sports Medicine, [place] [address] 07/16/2025 7:30 AM EST - 07/16/2025 9:55 AM EST Surgery OR Admitting Dept - Virtual Department [address] [place] [address] 19968 David Patel DO [address] [place] [address] Orthoped[facility] [place] [place] [address] ARTHROPLASTY ANATOMIC INVERSE SHOULDER 08/01/2025 8:00 AM EST Office Visit [facility] Orthopedics & Sports Medicine [address] [place] [address] Cameron Hayward PA-C [address] [place] [address] [place] [address] [email or web address] 08/29/2025 9:00 AM EST Office Visit [facility] Orthopedics & Sports Medicine [address] [place] [address] [phone] David Patel DO [address] [place] [address] Orthopedics & [facility] [place] [address] Scheduled Procedures Name Priority Associated Diagnoses Date/Ti me ARTHROPLASTY ANATOMIC INVERSE SHOULDER Instability of prosthetic shoulder joint, sequela 07/16/2025 7:30 AM EST documented as of this encounter Results * Lipase (08/29/2018 9:26 AM EST) LIPASE 35 16 - 63 U/L [facility] Blood 08/29/2018 9:26 AM EST 08/29/2018 9:29 AM EST us Tee Oneal MD LAB BLOOD ORDERABLES Final R esult [facility] [address] [place] [address] * Amylase (08/29/2018 9:26 AM EST) AMYLASE 70 28 - 100 U/L [facility] Blood 08/29/2018 9:26 AM EST 08/29/2018 9:29 AM EST us Tee Oneal MD LAB BLOOD ORDERABLES Final R esult [facility] [address] [place] [address] documented in this encounter Visit Diagnoses Diagnosis Nonintractable headache, unspecified chronicity pattern, unspecified headache type- Primary Instability of prosthetic shoulder joint, sequela documented in this encounter Care Teams Fish Peddler Relationship Specialty Start Date End Date Demetrio Gonzales MD [address] [place] [address] PCP - General 06/10/17 11/26/24 Lucius Hannon MD [address] [place] [address] PCP - General Internal Medicine 11/27/24 See Wan MD [address] [place] [address] [email or web address] Historical LMR Provider 06/09/17 Anay Bliss MD [address] [place] [address] [address] [place] [address] [email or web address] Historical LMR Provider 06/09/17 Tammi Corral PA-C [address] [place] [address] Orthopedics & Sports [facility], [place] [address] Historical LMR Provider 06/09/17 08/30/21 David Patel DO [address] [place] [address] Orthopedics Sports [facility], [place] [address] Historical LMR Provider 06/09/17 Demetrio Gonzales MD [address] [place] [address] [place] [address] Historical LMR Provider 06/09/17 2 Linette Echeverria PA-C [address] [place] [address] Orthopedics & Sports Medicine, [place] [address] Historical LMR Provider 06/09/17 08/30/21 Cirilo Bernard MD [address] [place] [address] Historical LMR Provider 06/09/17 08/30/21 Akil Jenkins MD [address] [place] [address] Historical LMR Provider 06/09/17 2 documented as of this encounter Additional Source Comments The information contained in this document represents components of the legal health record. It is not the complete legal health record.[facility]
--- OUTSIDE RECORDS SUMMARY | 2025-05-09 14:48 | XMS_ITS | Encounter Summary ---
Author Organization [facility] Address [address] [place] [address] Phone Care Team Providers Care Tentering Machine Off Bearer Name Role Phone See Wan MD Unavailable [phone] Anay Bliss MD Unavailable [phone] Tammi Corral PA-C Unavailable [phone] David Patel DO Unavailable [phone] Demetrio Gonzales MD Unavailable [phone] Linette Echeverria PA-C Unavailable [phone] Cirilo Bernard MD Unavailable Akil Jenkins MD Unavailable [phone] Demetrio Gonzales MD Primary Care Provider Lucius Hannon MD Primary Care Provid er Encounter Details Date Type Department Care Team (Late st Contact Info) Description 12/27/2017 Procedure Pass OR Admitting Dept - Virtual Department 30 [place], [place] [phone] Social History Tobacco Use Types Packs/Day Years [...] Description 05/14/2025 8:00 AM EDT Office Visit [facility] Rheumatology 22 [place] [address] Anay Bliss MD 22 [facility], [address] [place] [address] [email or web address] 06/20/2025 8:00 AM EDT Office Visit [facility] Orthopedics & Sports Medicine [address] [place] [address] Cameron Hayward PA-C [address] [place] [address] [place] [address] [email or web address] 07/16/2025 Procedure Pass OR Admitting Dept - Virtual Department [address] [place] [address] 07/16/2025 7:30 AM EST Hospital Encounter OR Admitting Dept - Virtual Department [address] [place] [address] David Patel, [address] [place] [address] Orthoped[facility] Sports [place] [place] [address] 07/16/2025 7:30 AM EST - 07/16/2025 9:55 AM EST Surgery OR Admitting Dept - Virtual Department [address] [place] [address] David Patel, 4 [facility] Orthopedics & Sports [place] [address] ARTHROPLASTY ANATOMIC INVERSE SHOULDER 08/01/2025 8:00 AM EST Office Visit [facility] Orthopedics & Sports Medicine [address] [place] [address] Cameron Hayward PA-C [address] [place] [address] [place] [address] [email or web address] 08/29/2025 9:00 AM EST Office Visit [facility] Orthopedics & Sports Medicine [address] [place] [address] David Patel DO [address] [place] [address] Orthopedics & Sports Medicine, [place] [address] [email or web address] Scheduled Procedures Name Priority Associated Diagnoses Date/Ti me ARTHROPLASTY ANATOMIC INVERSE SHOULDER Instability of prosthetic shoulder joint, sequela 07/16/2025 7:30 AM EST documented as of this encounter Visit Diagnoses Not on filedocumented in this encounter Care Teams Tentering Machine Off Bearer Relationship Specialty Start Date End Date Demetrio Gonzales MD [address] [place] [address] PCP - General 06/10/17 11/26/24 Lucius Hannon MD [address] [place] [address] PCP - General Internal Medicine 11/27/24 See Wan MD [address] [place] [address] [email or web address] Historical LMR Provider 06/09/17 Anay Bliss MD [address] [place] [address], [address] [place] [address] Historical LMR Provider 06/09/17 Tammi Corral PA-C 4 [facility] Orthopedics & Sports [facility], [place] [address] Historical LMR Provider 06/09/17 08/30/21 David Patel DO 4 [facility] Orthopedics & Sports [facility], [place] [address] Historical LMR Provider 06/09/17 Demetrio Gonzales MD [address] [place] [address] [place] [address] Historical LMR Provider 06/09/17 2 Linette Echeverria PA-C [address] [place] [address] Orthopedics & Sports [facility], [place] [address] Historical LMR Provider 06/09/17 08/30/21 Cirilo Bernard MD [address] [place] [address] Historical LMR Provider 06/09/17 08/30/21 Akil Jenkins MD [address] [place] [address] Historical LMR Provider 06/09/17 2 documented as of this encounter Additional Source Comments The information contained in this document represents components of the legal health record. It is not the complete legal health record.[facility]
--- OUTSIDE RECORDS SUMMARY | 2025-05-09 14:48 | XMS_ITS | Encounter Summary ---
Author Organization [facility] Address [address] [place] [address] Phone Care Team Providers Care Dental Ceramist Assistant Name Role Phone See Wan MD Unavailable [phone] Anay Bliss MD Unavailable Tammi Corral PA-C Unavailable [phone] David Patel DO Unavailable [phone] Demetrio Gonzales MD Unavailable Linette Echeverria PA-C Unavailable Cirilo Bernard MD Unavailable Akil Jenkins MD Unavailable [phone] Demetrio Gonzales MD Primary Care Provider Lucius Hannon MD Primary Care Provid er Encounter Details Date Type Department Care Team (Late st Contact Info) Description 08/10/2018 Procedure Pass [facility], [address] [address] Social History Tobacco Use Types Packs/Day Years [...] Description 05/14/2025 8:00 AM EDT Office Visit [facility] Rheumatology [address] [place] [address] [place] [address] Anay Bliss MD 22 [facility], [address] [place] [address] [email or web address] 06/20/2025 8:00 AM EDT Office Visit [facility] Orthopedics & Sports Medicine [address] [place] [address] Cameron Hayward PA-C [address] [place] [address] [place] [address] [email or web address] 07/16/2025 Procedure Pass OR Admitting Dept - Virtual Department [address] [place] [address] 07/16/2025 7:30 AM EST Hospital Encounter OR Admitting Dept - Virtual Department [address] [place] [address] David Patel DO [address] [place] [address] Orthopedics & Sports Medicine, [place] [address] 07/16/2025 7:30 AM EST - 07/16/2025 9:55 AM EST Surgery OR Admitting Dept - Virtual Department [address] [place] [address] David Patel DO [address] [place] [address] Orth[facility] [place] [address] ARTHROPLASTY ANATOMIC INVERSE SHOULDER 08/01/2025 8:00 AM EST Office Visit [facility] Orthopedics & Sports Medicine [address] [place] [address] Cameron Hayward PA-C [address] [place] [address] [place] [address] [email or web address] 08/29/2025 9:00 AM EST Office Visit [facility] Orthopedics & Sports [address] [address] David Patel DO [address] [place] [address] Orthopedics & Sports [facility], [place] [address] Scheduled Procedures Name Priority Associated Diagnoses Date/Ti me ARTHROPLASTY ANATOMIC INVERSE SHOULDER Instability of prosthetic shoulder joint, sequela 07/16/2025 7:30 AM EST documented as of this encounter Visit Diagnoses Not on filedocumented in this encounter Care Teams Dental Ceramist Assistant Relationship Specialty Start Date End Date Demetrio Gonzales MD [address] [place] [address] PCP - General 06/10/17 11/26/24 Lucius Hannon MD [address] [place] [address] [place] [address] PCP - General Internal Medicine 11/27/24 See Wan MD [address] [place] [address] [phone] [email or web address] Historical LMR Provider 06/09/17 Anay Bliss MD 22 [facility], [address] [place] [address] Historical LMR Provider 06/09/17 Tammi Corral PA-C [address] [place] [address] Orthopedics & Sports [facility], [place] [address] Historical LMR Provider 06/09/17 08/30/21 David Patel DO [address] [place] [address] Orthopedics Sports [facility], [place] [address] Historical LMR Provider 06/09/17 Demetrio Gonzales MD [address] [place] [address] [facility] [place] [address] Historical LMR Provider 06/09/17 2 Linette Echeverria PA-C [address] [place] [address] Orthopedics Sports [facility], [place] [address] Historical LMR Provider 06/09/17 08/30/21 Cirilo Bernard MD 22 [facility], [address] [place] [address] Historical LMR Provider 06/09/17 08/30/21 Akil Jenkins MD [address] [place] [address] Historical LMR Provider 06/09/17 2 documented as of this encounter Additional Source Comments The information contained in this document represents components of the legal health record. It is not the complete legal health record.[facility]
--- OUTSIDE RECORDS SUMMARY | 2025-05-09 14:48 | XMS_ITS | Encounter Summary ---
Author Organization [facility] Address [address] [place] [address] Phone Care Team Providers Care Sound Printer Name Role Phone See Wan MD Unavailable Anay Bliss MD Unavailable Tammi CorralC Unavailable [phone] David Patel DO Unavailable Demetrio Gonzales MD Unavailable Linette Echeverria-C Unavailable Cirilo Bernard MD Unavailable [phone] Akil Jenkins MD Unavailable [phone] Demetrio Gonzales MD Primary Care Provider Lucius Hannon MD Primary Care Provid er Encounter Details Date Type Department Care Team (Late st Contact Info) Description 05/20/2020 Ancillary Orders Virtual Department [address] [place] [address] Tahmina Power PA [address] [place] [address] [email or web address] Social History Tobacco Use [...] Description 05/14/2025 8:00 AM EDT Office Visit [facility] Rheumatology [address] [place] [address] Anay Bliss MD [address], [address] [place] [address] [email or web address] 06/20/2025 8:00 AM EDT Office Visit [facility] Orthopedics & Sports Medicine [address] [place] [address] Cameron Hayward PA-C [address] [place] [address] [place] [address] [email or web address] 07/16/2025 Procedure Pass OR Admitting Dept - Virtual Department [address] [place] [address] 07/16/2025 7:30 AM EST Hospital Encounter OR Admitting Dept - Virtual Department [address] [place] [address] David Patel DO [address] [place] [address] [facility] [place] [address] 07/16/2025 7:30 AM EST - 07/16/2025 9:55 AM EST Surgery OR Admitting Dept - Virtual Department [address] [place] [address] David Patel DO 4 [facility] Orthopedics & Sports [place] [place] [address] ARTHROPLASTY ANATOMIC INVERSE SHOULDER 08/01/2025 8:00 AM EST Office Visit [facility] Orthopedics & Sports Medicine [address] [place] [address] Cameron Hayward PA-C [address] [place] [address] [place] [address] [email or web address] 08/29/2025 9:00 AM EST Office Visit [facility] Orthopedics & Sports Medicine [address] [place] [address] David Patel DO [address] [place] [address] Orthopedics & Sports Medicine, [facility] [place] [address] Scheduled Procedures Name Priority Associated Diagnoses Date/Ti [...] sequela documented in this encounter Care Teams Sound Printer Relationship Specialty Start Date End Date Demetrio Gonzales MD [address] [place] [address]116 PCP - General 06/10/17 11/26/24 Lucius Hannon MD [address] [place] [address]777 PCP - General Internal Medicine 11/27/24 See Wan MD [address] [place] [address] Historical LMR Provider 06/09/17 Anay Bliss MD [address] [place] [address], [facility] [address] [place] [address] [email or web address] Historical LMR Provider 06/09/17 Tammi Corral PA-C [address] [place] [address] [facility] [place] [address] Historical LMR Provider 06/09/17 08/30/21 David Patel DO 4 [facility] Orthopedics Sports [facility], [place] [address] Historical LMR Provider 06/09/17 Demetrio Gonzales MD [address] [place] [address] [place] [address] Historical LMR Provider 06/09/17 2 Linette Echeverria PA-C [address] [place] [address] Orthopedics & Sports [facility], [place] [address] Historical LMR Provider 06/09/17 08/30/21 Cirilo Bernard MD [address] [place] [address] Historical LMR Provider 06/09/17 08/30/21 Akil Jenkins MD [address] [place] [address] Historical LMR Provider 06/09/17 2 documented as of this encounter Additional Source Comments The information contained in this document represents components of the legal health record. It is not the complete legal health record.[facility]
--- OUTSIDE RECORDS SUMMARY | 2025-05-09 14:48 | XMS_ITS | Encounter Summary ---
Author Organization [facility] Address [address] [place] [address] Phone Care Team Providers Care Manager Qa Name Role Phone See Wan MD Unavailable [phone] Anay Bliss MD Unavailable [phone] Tammi Corral PA-C Unavailable David Patel DO Unavailable [phone] Demetrio Gonzales MD Unavailable [phone] Linette Echeverria PA-C Unavailable [phone] Cirilo Bernard MD Unavailable Akil Jenkins MD Unavailable [phone] Demetrio Gonzales MD Primary Care Provider Lucius Hannon MD Primary Care Provid er Encounter Details Date Type Department Care Team (Late st Contact Info) Description 01/07/2018 Ancillary Orders [facility] Medical [facility] Orthopedics & Sports Medicine [address] [place] [address] [phone] Linette Echeverria PA-C [address] [place] [address] Orthopedics & Sports Medicine, [facility] [place], [place] [id number] Social History Tobacco Use Types Packs/Day Years [...] Description 05/14/2025 8:00 AM EDT Office Visit [facility] Rheumatology [address] [place] [address] Anay Bliss MD [address] [place] [address], [address] [place] [address] [email or web address] 06/20/2025 8:00 AM EDT Office Visit [facility] Orthopedics & Sports Medicine [address] [place] [address] Cameron Hayward PA-C [address] [place] [address] [place] [address] [email or web address] 07/16/2025 Procedure Pass OR Admitting Dept - Virtual Department [address] [place] [address] 07/16/2025 7:30 AM EST Hospital Encounter OR Admitting Dept - Virtual Department [address] [place] [address] David Patel DO [address] [place] [address] Orthopedics & Sports [place], [place] [address] 07/16/2025 7:30 AM EST - 07/16/2025 9:55 AM EST Surgery OR Admitting Dept - Virtual Department [address] [place] [address] David Patel DO 4 [facility] Orthopedics & Sports [place] [address] ARTHROPLASTY ANATOMIC INVERSE SHOULDER 08/01/2025 8:00 AM EST Office Visit [facility] Orthopedics & Sports Medicine [address] [place] [address] Cameron Hayward PA-C [address] [place] [address] [place] [address] [email or web address] 08/29/2025 9:00 AM EST Office Visit [facility] Orthopedics & Sports [address] [phone] David Patel DO [address] [place] [address] Orthopedics & Sports [facility], [place], [place] [phone] [email or web address] Scheduled Procedures Name Priority Associated Diagnoses Date/Ti me ARTHROPLASTY ANATOMIC INVERSE SHOULDER Instability of prosthetic shoulder joint, sequela 07/16/2025 7:30 AM EST documented as of this encounter Visit Diagnoses Not on filedocumented in this encounter Care Teams Manager Qa Relationship Specialty Start Date End Date Demetrio Gonzales MD [address] [place] [address] PCP - General 06/10/17 11/26/24 Lucius Hannon MD [address] [place] [address] PCP - General Internal Medicine 11/27/24 See Wan MD [address] [place] [address] [email or web address] Historical LMR Provider 06/09/17 Anay Bliss MD [address] [place] [address], [facility] [address] [place] [address] [email or web address] Historical LMR Provider 06/09/17 Tammi Corral PA-C [address] [place] [address] Orthopedics Sports [facility], [place] [address] Historical LMR Provider 06/09/17 08/30/21 David Patel DO [address] [place] [address] [place] [address] [email or web address] Historical LMR Provider 06/09/17 Demetrio Gonzales MD [address] [place] [address] [place] [address] Historical LMR Provider 06/09/17 2 Linette Echeverria PA-C [address] [place] [address] Orthopedics Sports [facility], [place] [address] [email or web address] Historical LMR Provider 06/09/17 08/30/21 Cirilo Bernard MD [address] [place] [address], [facility] [address] [place] [address] Historical LMR Provider 06/09/17 08/30/21 Akil Jenkins MD [address] [place] [address] Historical LMR Provider 06/09/17 2 documented as of this encounter Additional Source Comments The information contained in this document represents components of the legal health record. It is not the complete legal health record.[facility]
--- OUTSIDE RECORDS SUMMARY | 2025-05-09 14:48 | XMS_ITS | Encounter Summary ---
Author Organization [facility] Address [address] [place] [address] Phone Care Team Providers Care Clinical Athletic Instructor Name Role Phone See Wan MD Unavailable [phone] Anay Bliss MD Unavailable [phone] Tammi Corral PA-C Unavailable [phone] David Patel DO Unavailable [phone] Demetrio Gonzales MD Unavailable Linette Echeverria PA-C Unavailable Cirilo Bernard MD Unavailable Akil Jenkins MD Unavailable [phone] Demetrio Gonzales MD Primary Care Provider Lucius Hannon MD Primary Care Provid er Encounter Details Date Type Department Care Team (Latest Contact Info) Description 09/28/2018 Transcribe Orders [facility] [address] [place] [address] [phone] Tee Oneal MD [address] [place] [address], [address] [place] [address] [email or web address] Nonintractable headache, unspecified chronicity pattern, unspecified [...] Description 05/14/2025 8:00 AM EDT Office Visit [facility] Rheumatology [address] [place] [address] Anay Bliss MD [address] [place] [address], [address] [place] [address] [email or web address] 06/20/2025 8:00 AM EDT Office Visit [facility] Orthopedics & Sports Medicine [address] [place] [address] Cameron Hayward PA-C [address] [place] [address] [place] [address] [email or web address] 07/16/2025 Procedure Pass OR Admitting Dept - Virtual Department [address] [place] [address] 07/16/2025 7:30 AM EST Hospital Encounter OR Admitting Dept - Virtual Department [address] [place] [address] David Patel DO [address] [place] [address] Orthopedics & Sports Medicine, [place] [address] 07/16/2025 7:30 AM EST - 07/16/2025 9:55 AM EST Surgery OR Admitting Dept - Virtual Department [address] [place] [address] David Patel DO [address] [place] [address] [facility] [place] [address] ARTHROPLASTY ANATOMIC INVERSE SHOULDER 08/01/2025 8:00 AM EST Office Visit [facility] Orthopedics & Sports Medicine [address] [place] [address] Cameron Hayward PA-C [address] [place] [address] [place] [address] [email or web address] 08/29/2025 9:00 AM EST Office Visit [facility] Orthopedics & Sports Medicine [address] [place] [address] David Patel DO [address] [place] [address] Orthopedics & Sports [facility], [place] [address] Scheduled Procedures Name Priority Associated Diagnoses Date/Ti me ARTHROPLASTY ANATOMIC INVERSE SHOULDER Instability of prosthetic shoulder joint, sequela 07/16/2025 7:30 AM EST documented as of this encounter Visit Diagnoses Diagnosis Nonintractable headache, unspecified chronicity pattern, unspecified headache type- Primary Instability of prosthetic shoulder joint, sequela documented in this encounter Care Teams Clinical Athletic Instructor Relationship Specialty Start Date End Date Demetrio Gonzales MD [address] [place] [address] [place] [address] PCP - General 06/10/17 11/26/24 Lucius Hannon MD [address] [place] [address] [place] [address] PCP - General Internal Medicine 11/27/24 See Wan MD [address] [place] [address] [phone] [email or web address] Historical LMR Provider 06/09/17 Anay Bliss MD 22 [facility], [address] [place] [address] Historical LMR Provider 06/09/17 Tammi Corral PA-C [address] [place] [address] Orthopedics Sports [facility], [place] [address] Historical LMR Provider 06/09/17 08/30/21 David Patel DO [address] [place] [address] Orthopedics Sports [facility], [place] [address] [email or web address] Historical LMR Provider 06/09/17 Demetrio Gonzales MD [address] [place] [address] [place] [address] Historical LMR Provider 06/09/17 Linette Patel PA-C [address] [place] [address] Orthopedics Sports [facility], [place] [address] Historical LMR Provider 06/09/17 08/30/21 Cirilo Bernard MD 22 [facility], [address] [place] [address] Historical LMR Provider 06/09/17 08/30/21 Akil Jenkins MD [address] [place] [address] Historical LMR Provider 06/09/17 2 documented as of this encounter Additional Source Comments The information contained in this document represents components of the legal health record. It is not the complete legal health record.[facility]
--- OUTSIDE RECORDS SUMMARY | 2025-05-09 14:48 | XMS_ITS | Encounter Summary ---
Author Organization [facility] Address [address] [place] [address] Phone Care Team Providers Care Interactive Art Director Name Role Phone See Wan MD Unavailable Anay Bliss MD Unavailable Tammi Corral PA-C Unavailable [phone] David Patel DO Unavailable [phone] Demetrio Gonzales MD Unavailable Linette Echeverria PA-C Unavailable Cirilo Bernard MD Unavailable Akil Jenkins MD Unavailable [phone] Demetrio Gonzales MD Primary Care Provider Lucius Hannon MD Primary Care Provid er Encounter Details Date Type Department Care Team (Late st Contact Info) Description 01/07/2018 Ancillary Orders [address] [phone] Linette Echeverria PA-C [address] [place] [address] Orthopedics & Sports Medicine, [place], [place] [phone] [email or web address] Left shoulder pain, unspecified chronicity Social History [...] AM EDT Office Visit [facility] Rheumatology [address] [place] [address] Anay Bliss MD [address] [place] [address], [address] [place] [address] [email or web address] 06/20/2025 8:00 AM EDT Office Visit [facility] Orthopedics & Sports Medicine [address] [place] [address] Cameron Hayward PA-C [address] [place] [address] [place] [address] [email or web address] 07/16/2025 Procedure Pass OR Admitting Dept - Virtual Department [address] [place] [address] 07/16/2025 7:30 AM EST Hospital Encounter OR Admitting Dept - Virtual Department [address] [place] [address] David Patel DO [address] [place] [address] Orthopedics & Sports Medicine, [facility] [place] [address] 07/16/2025 7:30 AM EST - 07/16/2025 9:55 AM EST Surgery OR Admitting Dept - Virtual Department [address] [place] [address] David Patel DO [address] [place] [address] Orth[facility] [place] [address] [email or web address] ARTHROPLASTY ANATOMIC INVERSE SHOULDER 08/01/2025 8:00 AM EST Office Visit [facility] Orthopedics & Sports Medicine [address] [place] [address] Cameron Hayward PA-C [address] [place] [address] [place] [address] [email or web address] 08/29/2025 9:00 AM EST Office Visit [facility] Orthopedics & Sports [address] [address] David Patel DO [address] [place] [address] [facility], [place] [address] Scheduled Procedures Name Priority Associated Diagnoses Date/Ti ar ARTHROPLASTY ANATOMIC INVERSE SHOULDER Instability of prosthetic shoulder joint, sequela 07/16/2025 7:30 AM EST documented as of this encounter Results * XR SHOULDER 2 VIEWS (LEFT) (01/11/2018 10:42 AM EDT) Narrative Germania Marienlelie Santana - 01/11/2018 10:42 AM EDT This [...] sequela documented in this encounter Care Teams Interactive Art Director Relationship Specialty Start Date End Date Demetrio Gonzales MD [address] [place] [address] [place] [address] PCP - General 06/10/17 11/26/24 Lucius Hannon MD [address] [place] [address] PCP - General Internal Medicine 11/27/24 See Wan MD [address] [place] [address] [email or web address] Historical LMR Provider 06/09/17 Anay Bliss MD [address] [place] [address], [address] [place] [address] [email or web address] Historical LMR Provider 06/09/17 Tammi Corral PA-C [address] [place] [address] [facility], [place] [address] Historical LMR Provider 06/09/17 08/30/21 David Patel DO [address] [place] [address] [facility], [place] [address] Historical LMR Provider 06/09/17 Demetrio Gonzales MD [address] [place] [address] Historical LMR Provider 06/09/17 Linette Patel PA-C [address] [place] [address] [facility], [place] [address] Historical LMR Provider 06/09/17 08/30/21 Cirilo Bernard MD [address] [place] [address] [email or web address] Historical LMR Provider 06/09/17 08/30/21 Akil Jenkins MD [address] [place] [address] Historical LMR Provider 06/09/17 2 documented as of this encounter Additional Source Comments The information contained in this document represents components of the legal health record. It is not the complete legal health record.[facility]
--- OUTSIDE RECORDS SUMMARY | 2025-05-09 14:48 | XMS_ITS | Encounter Summary ---
Author Organization [facility] Address [address] [place] [address] Phone Care Team Providers Care Truck Driver Flatbed Name Role Phone See Wan MD Unavailable Anay Bliss MD Unavailable Tammi Corral PA-C Unavailable [phone] David Patel DO Unavailable Demetrio Gonzales MD Unavailable Linette Echeverria PA-C Unavailable [phone] Cirilo Bernard MD Unavailable Akil Jenkins MD Unavailable [phone] Demetrio Gonzales MD Primary Care Provider Lucius Hannon MD Primary Care Provid er Reason for Referral * MRI/CAT Scan - Closed Specialty Diagnoses / Procedures Referred By Edmond leo Referred To Contact Radiology Diagnoses MS (multiple sclerosis) Procedures MRI Thoracic Spine Tee Oneal MD Phone: tel: fax: mailto: Referral ID Status Reason Start Date Expiration Date Visits Re quested Visits Authorized [id number] Closed 08/10/2018 11/08/2018 1 1 Encounter Details Date Type Department Care Team (Late st Contact Info) Description 08/10/2018 Ancillary Orders Virtual Department [address] [place] [address] Tee Oneal MD [address] [place] [address], [address] [place] [address] [email or web address] MS (multiple sclerosis) Social History [...] Description 05/14/2025 8:00 AM EDT Office Visit [facility] Rheumatology [address] [place] [address] Anay Bliss MD [address] [place] [address], [address] [place] [address] [email or web address] 06/20/2025 8:00 AM EDT Office Visit [facility] Orthopedics & Sports Medicine [address] [place] [address] Cameron Hayward PA-C [address] [place] [address] [place] [address] [email or web address] 07/16/2025 Procedure Pass OR Admitting Dept - Virtual Department [address] [place] [address] 07/16/2025 7:30 AM EST Hospital Encounter OR Admitting Dept - Virtual Department [address] [place] [address] David Patel DO [address] [facility] Orthopedics & Sports [place] [address] 07/16/2025 7:30 AM EST - 07/16/2025 9:55 AM EST Surgery OR Admitting Dept - Virtual Department [address] [place] [address] David Patel DO [address] [place] [address] Orthopedics & Sports [facility] [place] [address] ARTHROPLASTY ANATOMIC INVERSE SHOULDER 08/01/2025 8:00 AM EST Office Visit [facility] Orthopedics & Sports Medicine [address] [place] [address] Cameron Hayward PA-C [address] [place] [address] [place] [address] [email or web address] 08/29/2025 9:00 AM EST Office Visit [facility] Orthopedics & Sports Medicine [address] [place] [address] David Patel DO [address] [place] [address] Orthopedics & Sports [facility] [place] [address] Scheduled Procedures Name Priority Associated Diagnoses Date/Ti [...] sequela documented in this encounter Care Teams Truck Driver Flatbed Relationship Specialty Start Date End Date Demetrio Gonzales MD [address] [place] [address] PCP - General 06/10/17 11/26/24 Lucius Hannon MD [address] [place] [address] PCP - General Internal Medicine 11/27/24 See Wan MD [address] [place] [address] [email or web address] Historical LMR Provider 06/09/17 Anay Bliss MD [address] [place] [address], [address] [place] [address] Historical LMR Provider 06/09/17 Tammi Corral PA-C [address] [place] [address] Orthopedics & Sports Medicine, [place] [address] [email or web address] Historical LMR Provider 06/09/17 08/30/21 David Patel DO [address] [facility] Orthopedics & Sports Medicine, [place] [address] [email or web address] Historical LMR Provider 06/09/17 Demetrio Gonzales MD [address] [place] [address] [place] [address] Historical LMR Provider 06/09/17 2 Linette Echeverria PA-C [address] [facility] Orthopedics & Sports [facility], [place], [place] [phone] [email or web address] Historical LMR Provider 06/09/17 08/30/21 Cirilo Bernard MD [address] [place] [address] Historical LMR Provider 06/09/17 08/30/21 Akil Jenkins MD [address] [place] [address] Historical LMR Provider 06/09/17 2 documented as of this encounter Additional Source Comments The information contained in this document represents components of the legal health record. It is not the complete legal health record.[facility]
--- OUTSIDE RECORDS SUMMARY | 2025-05-09 14:48 | XMS_ITS | Encounter Summary ---
Author Organization [facility] Address [address] [place] [address] [place] [address] Phone Care Team Providers Care Garnishment Specialist Name Role Phone See Wan MD Unavailable [phone] Anay Bliss MD Unavailable [phone] David Patel DO Unavailable [phone] Lucius Hannon MD Primary Care Provid er Encounter Details Date Type Department Care Team (Late st Contact Info) Description 02/14/2025 Procedure Pass [facility], Ct Scan - [address] [id number] Social History Tobacco Use Types Packs/Day Years [...] Description 05/14/2025 8:00 AM EDT Office Visit [facility] Rheumatology [address] [facility] [place] [address] Anay Bliss MD 22 [facility], [address] [place] [address] [email or web address] 06/20/2025 8:00 AM EDT Office Visit [facility] Orthopedics & Sports Medicine [address] [place] [address] Cameron Hayward PA-C [address] [place] [address] [place] [address] [email or web address] 07/16/2025 Procedure Pass OR Admitting Dept - Virtual Department [address] [place] [address] 07/16/2025 7:30 AM EST Hospital Encounter OR Admitting Dept - Virtual Department [address] [place] [address] David Patel DO [address] [place] [address] Orthopedics & Sports [facility] [place] [address] 07/16/2025 7:30 AM EST - 07/16/2025 9:55 AM EST Surgery OR Admitting Dept - Virtual Department [address] [place] [address] David Patel DO 4 [facility] Orthopedics & Sports [facility] [place] [address] ARTHROPLASTY ANATOMIC INVERSE SHOULDER 08/01/2025 8:00 AM EST Office Visit [facility] Orthopedics & Sports Medicine [address] [place] [address] Cameron Hayward PA-C [address] [place] [address] [place] [address] [email or web address] 08/29/2025 9:00 AM EST Office Visit [facility] Orthopedics & Sports Medicine [address] [place] [address] David Patel DO [address] [place] [address] Orthopedics & Sports Medicine, [place] [address] Scheduled Procedures Name Priority Associated Diagnoses Date/Ti me ARTHROPLASTY ANATOMIC INVERSE SHOULDER Instability of prosthetic shoulder joint, sequela 07/16/2025 7:30 AM EST documented as of this encounter Visit Diagnoses Not on filedocumented in this encounter Care Teams Garnishment Specialist Relationship Specialty Start Date End Date Lucius Hannon MD [address] [place] [address] PCP - General Internal Medicine 11/27/24 See Wan MD [address] [place] [address] [email or web address] Historical LMR Provider 06/09/17 Anay Bliss MD [address] [place] [address], [address] [place] [address] Historical LMR Provider 06/09/17 David Patel DO [address] [place] [address] Orthopedics & Sports Medicine, [place] [address] Historical LMR Provider 06/09/17 documented as of this encounter Additional Source Comments The information contained in this document represents components of the legal health record. It is not the complete legal health record.[facility]
--- OUTSIDE RECORDS SUMMARY | 2025-05-09 14:48 | XMS_ITS | Encounter Summary ---
Author Organization [facility] Address [address] [place] [address] Phone Care Team Providers Care School Bus Dispatcher Name Role Phone See Wan MD Unavailable [phone] Anay Bliss MD Unavailable Tammi Corral PA-C Unavailable [phone] David Patel DO Unavailable [phone] Demetrio Gonzales MD Unavailable [phone] Linette Echeverria PA-C Unavailable [phone] Cirilo Bernard MD Unavailable Akil Jenkins MD Unavailable [phone] Demetrio Gonzales MD Primary Care Provider Lucius Hannon MD Primary Care Provid er Encounter Details Date Type Department Care Team (Latest Contact Info) Description 11/04/2017 Transcribe Orders [facility] Laboratory [address] [place], [place] [phone] Hayley Collins, SEA KAYAKING GUIDE [address] [place] [address] [address] [place], [place] [id number] [email or web address] Nonintractable headache, unspecified chronicity pattern, unspecified headache [...] Description 05/14/2025 8:00 AM EDT Office Visit [facility] Rheumatology [address] [place] [address] Anay Bliss MD [address] [place] [address], [address] [place] [address] [email or web address] 06/20/2025 8:00 AM EDT Office Visit [facility] Orthopedics & Sports Medicine [address] [place] [address] Cameron Hayward PA-C [address] [place] [address] [place] [address] [email or web address] 07/16/2025 Procedure Pass OR Admitting Dept - Virtual Department [address] [place] [address] 07/16/2025 7:30 AM EST Hospital Encounter OR Admitting Dept - Virtual Department [address] [place] [address] David Patel DO [address] [place] [address] Orthopedics & Sports Medicine, [facility] [place] [address] 07/16/2025 7:30 AM EST - 07/16/2025 9:55 AM EST Surgery OR Admitting Dept - Virtual Department [address] [place] [address] David Patel DO [address] [place] [address] Orthopedics & Sports [facility] [place] [place] [address] [email or web address] ARTHROPLASTY ANATOMIC INVERSE SHOULDER 08/01/2025 8:00 AM EST Office Visit [facility] Orthopedics & Sports [address] [address] Cameron Hayward PA-C [address] [place] [address] [place] [address] [email or web address] 08/29/2025 9:00 AM EST Office Visit [facility] Orthopedics & Sports [address] [phone] David Patel DO [address] [place] [address] Orthopedics & Sports [facility] [place] [address] [email or web address] Scheduled Procedures Name Priority Associated Diagnoses Date/Ti ny ARTHROPLASTY ANATOMIC INVERSE SHOULDER Instability of prosthetic shoulder joint, sequela 07/16/2025 7:30 AM EST documented as of this encounter Results * CBC (11/04/2017 9:10 AM EDT) WBC 4.31 3.40 - 11.20 K/uL [facility] RBC 4.47 3.80 - 4.80 M/uL [facility] HGB 14.1 12.0 - 15.0 g/dL [facility] HCT 41.0 36.0 - 46.0 % [facility] PLT 184 130 - 400 K/uL [facility] MCV 91.7 79.0 - 98.0 fL [facility] MCH 31.5 27.0 - 34.8 pg [facility] MCHC 34.4 31.5 - 36.0 g/dL [facility] RDW 12.4 10.8 - 14.6 % [facility] MPV 10.3 9.4 - 12.4 fl [facility] NRBC 0.00 /100 WBCs [facility] ABSOLUTE NRBC 0.00 K/uL [facility] Blood 11/04/2017 9:10 AM EDT 11/04/2017 9:14 AM EDT us Hayley Collins SE[employer]AYAK[employer]IDE LAB BLOOD ORDERABLES Fin al Result Performing Organization Address [facility] Co de Phone Number [address] [address] * LFTs (hepatic panel) (11/04/2017 9:10 AM EDT) ALKALINE PHOSPHATASE 65 39 - 117 U/L [facility] TOTAL BILIRUBIN 0.3 0.0 - 1.2 mg/dL [facility] DIRECT BILIRUBIN <0.2 0 - 0.3 mg/dL [facility] Bilirubin (Indirect) NOT CALCULATED 0 - 1.5 mg/dL [facility] AST 21 0 - 37 U/L [facility] ALT 16 0 - 40 U/L [facility] TOTAL PROTEIN 6.8 6.5 - 8.0 g/dL [facility] ALBUMIN 3.9 3.9 - 4.8 g/dL [facility] GLOBULIN 2.9 1 - 4.8 g/dL [facility] A/G Ratio 1.34 1.00 - 4.80 RATIO [facility] Blood 11/04/2017 9:10 AM EDT 11/04/2017 9:14 AM EDT us Hayley Collins SEA KAYAKING GUIDE LAB BLOOD ORDERABLES Fin al Result Performing Organization Address [facility] Co de Phone Number [address] [address] documented in this encounter Visit Diagnoses Diagnosis Nonintractable headache, unspecified chronicity pattern, unspecified headache type- Primary Instability of prosthetic shoulder joint, sequela documented in this encounter Care Teams School Bus Dispatcher Relationship Specialty Start Date End Date Demetrio Gonzales MD [address] [place] [address] [place] [address] PCP - General 06/10/17 11/26/24 Lucius Hannon MD [address] [place] [address] PCP - General Internal Medicine 11/27/24 See Wan MD [address] [place] [address] [email or web address] Historical LMR Provider 06/09/17 Anay Bliss MD [address] [place] [address], [address] [place] [address] [email or web address] Historical LMR Provider 06/09/17 Tammi Corral PA-C [address] [place] [address] Orthopedics Sports [facility], [place] [address] Historical LMR Provider 06/09/17 08/30/21 David Patel DO [address] [place] [address] Orthopedics Sports [facility], [place] [address] Historical LMR Provider 06/09/17 Demetrio Gonzales MD [address] [place] [address] Historical LMR Provider 06/09/17 2 Linette Echeverria PA-C [address] [place] [address] Orthopedics Sports [facility], [place] [address] Historical LMR Provider 06/09/17 08/30/21 Cirilo Bernard MD [address] [place] [address] [email or web address] Historical LMR Provider 06/09/17 08/30/21 Akil Jenkins MD [address] [place] [address] Historical LMR Provider 06/09/17 2 documented as of this encounter Additional Source Comments The information contained in this document represents components of the legal health record. It is not the complete legal health record[facility]
--- OUTSIDE RECORDS SUMMARY | 2025-05-09 14:49 | XMS_ITS | Clinical Summary ---
Author Organization [facility] Address [address] [place] [address] Phone Care Team Providers Care Weigher Packing Name Role Phone See Wan MD Unavailable [phone] Anay Bliss MD Unavailable [phone] David Patel DO Unavailable [phone] Lucius Hannon MD Primary Care Provid er [...] over to topicals such as Arnica, Biofreeze, Slovenian dream versus medicated patches such as Salonpas or IcyHot patch and Tylenol Call if worse or with questions/problems. Get labs prior to next visit-standing orders in [facility] Another option may be building up [...] over to topicals such as Arnica, Biofreeze, Slovenian dream versus medicated patches such as Salonpas or IcyHot patch and Tylenol Call if worse or with questions/problems. Get labs prior to next visit-standing orders in [facility] Another option may be building up [...] labs prior to next visit-standing orders in [facility] Another option may be building up [...] labs prior to next visit For the auug-dku-xjedsjy sensation in her fingertips with numbness that [...] labs prior to next visit For the lwhg-flp-bumrbxf sensation in her fingertips with numbness that [...] labs prior to next visit For the qbpc-gsi-mcxdpps sensation in her fingertips with numbness that [...] Primary osteoarthritis of left shoulder 12/27/2017 08/24/2024 group home current use of opiate analgesic 12/08/2017 08/24/2024 [...] Patient: Megan Edouard : 1955 Date: 10/08/2022 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-inflammatories (NSAID) [...] - 04/25/2025 11:59 PM EDT Hospital Encounter [facility] [address] [place] [address] Tee Oneal MD Discharge Disposition: Home or Self Care 04/25/2025 Transcribe Orders [facility] [address] [place] [address] Tee Oneal MD Tension-type headache, not intractable, unspecified chronicity pattern (Primary Dx) 04/16/2025 1:31 PM EDT - 04/16/2025 11:59 PM EDT Hospital Encounter [facility] [address] [place] [address] David Patel DO Discharge Disposition: Home or Self Care 04/12/2025 Telephone [facility] Orthopedics & Sports Medicine [address] [place] [address] Keshia Elam RN preop labs 04/05/2025 10:00 AM EDT - 04/05/2025 11:59 PM EDT Hospital Encounter [facility] [address] [place] [address] Tee Oneal MD Discharge Disposition: Home or Self Care 04/05/2025 Transcribe Orders [facility] [address] [place] [address] Tee Oneal MD Other vascular headache (Primary Dx) 03/21/2025 11:00 AM EDT Office Visit [facility] Orthopedics & Sports Medicine [address] [place] [address] David Patel, Instability of prosthetic shoulder joint, sequela (Primary Dx); Chronic left shoulder pain 03/14/2025 9:15 AM EDT - 03/14/2025 11:59 PM EDT Hospital Encounter [address] [address] Anay Bliss MD Discharge Disposition: Home or Self Care 03/12/2025 Refill [facility] Rheumatology [address] [place] [address] Lanette Perdomo CMA Medication Refill 03/09/2025 10:20 AM EDT - 03/09/2025 11:59 PM EDT Hospital Encounter [facility] [address] [place] [address] Tee Oneal MD Discharge Disposition: Home or Self Care 03/09/2025 Transcribe Orders [address] [address] Tee Oneal MD Other complicated headache syndrome (Primary Dx); Numbness 02/22/2025 4:54 PM EDT - 02/22/2025 11:59 PM EDT Hospital Encounter [facility], Ct Scan - [facility] [address] [place] [address] David Patel, DO Discharge Disposition: Home or Self Care 02/14/2025 3:45 PM EDT Office Visit [facility] Orthopedics & Sports Medicine [address] [place] [address] David Patel, Pain (Primary Dx); Instability of prosthetic shoulder joint, sequela; Chronic left shoulder pain 02/14/2025 3:41 PM EDT - 02/14/2025 11:59 PM EDT Hospital Encounter [facility] [address] [place] [address] David Patel, DO Discharge Disposition: Home or Self Care 02/14/2025 Procedure Pass [facility], Ct Scan - [address] [address] from Last 3 Months Immunizations Immunization Administration [...] Description 05/14/2025 8:00 AM EDT Office Visit [facility] Rheumatology [address] [place] [address] [place] [address] Anay Bliss MD [address] [place] [address], [address] [place] [address] [email or web address] 06/20/2025 8:00 AM EDT Office Visit [facility] Orthopedics & Sports Medicine [address] [place] [address] Cameron Hayward PA-C [address] [place] [address] [place] [address] [email or web address] 07/16/2025 Procedure Pass OR Admitting Dept - Virtual Department [address] [place] [address] 07/16/2025 7:30 AM EST Hospital Encounter [place] Admitting Dept - Virtual Department [address] [place] [address] David Patel DO [address] [place] [address] Orthopedics & Sports [facility], [place] [address] 07/16/2025 7:30 AM EST - 07/16/2025 9:55 AM EST Surgery OR Admitting Dept - Virtual Department [address] [place] [address] David Patel DO [address] [place] [address] Orthopedics & Sports [facility], [place] [address] ARTHROPLASTY ANATOMIC INVERSE SHOULDER 08/01/2025 8:00 AM EST Office Visit [facility] Orthopedics & Sports Medicine [address] [place] [address] Cameron Hayward PA-C [address] [place] [address] [place] [address] [email or web address] 08/29/2025 9:00 AM EST Office Visit [facility] Orthopedics & Sports Medicine [address] [place] [address] David Patel DO [address] [place] [address] Orthopedics & Sports [facility], [place] [address] Scheduled Procedures Name Priority Associated Diagnoses Date/Ti [...] this topic Medical Devices Implanted Type Area Lap Hand Tool Device Identifier Shelf Expiration Date Model / Serial / Lot Lens Lens Bilateral: Eye Mesh Mesh Bladder Left Knee Replacement Right Shoulder Replacement Cement Bone 40gr Lawrence Ghv - [id number] Implanted:Qty: 1 on 12/27/2017 by David Patel DO at [facility] Left: Shoulder ENCORE 01/20/2019 [id number] / / [id number] Aequalis Perform Glenoid Cortiloc S35 Shoulder 02 Nc - [id number] Implanted:Qty: 1 on 12/27/2017 at [facility] Left: Shoulder [employer] 02/03/2022 [id number] / / [id number] 2b Ascend Flex Standard Ptc Humeral Stem Shoulder 14 - [id number] Implanted:Qty: 1 on 12/27/2017 by David Patel DO at [facility] Left: Shoulder [employer] 09/07/2021 [id number] / / [id number] Low Offset Ascend Flex Stb Humeral Head Onc 22 - [id number] Implanted:Qty: 1 on 12/27/2017 by David Patel DO at [facility] Left: Shoulder [employer] 06/25/2021 [id number] / [id number] / 2b Ascend Flex Standard Ptc Humeral Stem Shoulder 14 - [id number] Implanted:Qty: 1 on 12/27/2017 by David Patel DO at [facility] Left: Shoulder [employer] 09/07/2021 [id number] / [id number] / Procedures Procedure Name Priority Date/Time Associated [...] included. SODIUM 129(L) 133 - 146 mmol/L [facility] POTASSIUM 4.4 3.3 - 5.1 mmol/L [facility] CHLORIDE 91(L) 96 - 108 mmol/L [facility] CO2 27 21 - 35 mmol/L [facility] BUN 14 6 - 19 mg/dL [facility] CREATININE 0.40(L) 0.5 - 1.5 mg/dL [facility] GLUCOSE 84 70 - 99 mg/dL [facility] ALBUMIN 4.4 3.9 - 4.8 g/dL [facility] TOTAL PROTEIN 7.0 6.5 - 8.0 g/dL [facility] CALCIUM 10.0 8.4 - 10.3 mg/dL [facility] ALKALINE PHOSPHATASE 73 39 - 117 U/L [facility] TOTAL BILIRUBIN 0.3 0.0 - 1.2 mg/dL [facility] AST 30 0 - 37 U/L [facility] ALT 28 0 - 40 U/L [facility] GLOBULIN 2.6 1 - 4.8 g/dL [facility] EGFR 106 >59 mL/min/1.7 3m2 [facility] Comment:Estimated glomerular filtration rate calculated using the CKD-EPI refit equation. ANION GAP 15 10 - 20 mmol/L [facility] Blood 04/25/2025 11:5 7 AM EDT 04/25/2025 12:05 PM EDT us Tee Oneal MD LAB BLOOD ORDERABLES Final R esult [address] [address] * (ABNORMAL) CBC (04/25/2025 11:57 AM EDT) Only the most recent of2 resultswithin the time period is included. WBC 4.35 4.00 - 11.00 K/uL [facility] RBC 4.03 4.00 - 5.20 M/uL [facility] HGB 12.8 12.0 - 16.0 g/dL [facility] HCT 37.0 36.0 - 46.0 % [facility] PLT 237 150 - 450 K/uL [facility] MCV 91.8 80.0 - 100.0 fL [facility] MCH 31.8(H) 27.0 - 31.0 pg [facility] MCHC 34.6 32.0 - 36.0 g/dL [facility] RDW 12.8 11.5 - 14.5 % [facility] MPV 9.5 8.4 - 12.0 fL [facility] NRBC 0.00 0.00 /100 WBCs [facility] ABSOLUTE NRBC 0.00 0.00 K/uL [facility] Blood 04/25/2025 11:5 7 AM EDT 04/25/2025 12:05 PM EDT us Tee Oneal MD LAB BLOOD ORDERABLES Final R esult Performing Organization Address City/[facility]/ZIP Co de Phone Number [address] [address] * ABO and Rh (04/16/2025 1:32 PM EDT) ABO/Rh A Positive [facility] Resulting Agency [facility] Blood 04/16/2025 1:32 PM EDT 04/16/2025 1:44 PM EDT David Patel DO BLOOD BANK TEST ORDERABLES Final Result Performing Organization Address [facility] Co de Phone Number [address] [address] * Antibody Screen (04/16/2025 1:32 PM EDT) Antibody Screen Negative [facility] Resulting Agency [facility] Blood 04/16/2025 1:32 PM EDT 04/16/2025 1:43 PM EDT David Patel DO BLOOD BANK TEST ORDERABLES Final Result Performing Organization Address [facility]/ZIP Co de Phone Number [address] [address] * Hemoglobin A1c (04/16/2025 1:32 PM EDT) HEMOGLOBIN A1C 5.5 4.3 - 5.8 % [facility] Blood 04/16/2025 1:32 PM EDT 04/16/2025 1:44 PM EDT David Patel DO LAB BLOOD ORDERABLES Final Result Performing Organization Address [facility]/ZIP Co de Phone Number [address] [address] * (ABNORMAL) Basic metabolic panel (04/16/2025 1:32 PM EDT) Pathologist [facility] SODIUM 125(L) 133 - 146 mmol/L [facility] CHLORIDE 87(L) 96 - 108 mmol/L [facility] POTASSIUM 4.2 3.3 - 5.1 mmol/L [facility] CO2 26 21 - 35 mmol/L [facility] BUN 8 6 - 19 mg/dL [facility] CREATININE 0.40(L) 0.5 - 1.5 mg/dL [facility] GLUCOSE 111(H) 70 - 99 mg/dL [facility] CALCIUM 9.2 8.4 - 10.3 mg/dL [facility] EGFR 106 >59 mL/min/1.7 3m2 [facility] Comment:Estimated glomerular filtration rate calculated using the CKD-EPI refit equation. ANION GAP 16 10 - 20 mmol/L [facility] Blood 04/16/2025 1:32 PM EDT 04/16/2025 7:07 PM EDT us David Patel DO LAB BLOOD ORDERABLES Final Result [address] [address] * Sedimentation rate (ESR) (04/05/2025 10:02 AM EDT) Only the most recent of3 resultswithin the time period is included. [facility] ESR 3 0 - 30 mm/h [facility] Blood 04/05/2025 10:0 2 AM EDT 04/05/2025 10:08 AM EDT us Anay Bliss MD LAB BLOOD ORDERABLES Fin al Result [address] [address] * (ABNORMAL) CBC and differential (04/05/2025 10:02 AM EDT) Only the most recent of2 resultswithin the time period is included. [facility] WBC 4.33 4.00 - 11.00 K/uL [facility] RBC 4.07 4.00 - 5.20 M/uL [facility] HGB 13.0 12.0 - 16.0 g/dL [facility] HCT 37.7 36.0 - 46.0 % [facility] PLT 254 150 - 450 K/uL [facility] MCV 92.6 80.0 - 100.0 fL [facility] MCH 31.9(H) 27.0 - 31.0 pg [facility] MCHC 34.5 32.0 - 36.0 g/dL [facility] RDW 12.8 11.5 - 14.5 % [facility] MPV 9.3 8.4 - 12.0 fL [facility] NRBC 0.00 0.00 /100 WBCs [facility] ABSOLUTE NRBC 0.00 0.00 K/uL [facility] DIFF METHOD Auto [facility] NEUTS 54.6 48.0 - 76.0 % [facility] LYMPHS 33.9 18.0 - 41.0 % [facility] MONOS 8.8 4.0 - 11.0 % [facility] EOS 1.8 0.0 - 5.0 % [facility] BASOS 0.7 0.0 - 1.5 % [facility] Granulocytes, immature (%) 0.2 0.0 - 0.9 % [facility] ABSOLUTE NEUTS 2.36 1.92 - 7.60 K/uL [facility] ABSOLUTE LYMPHS 1.47 0.72 - 4.10 K/uL [facility] ABSOLUTE MONOS 0.38 0.16 - 1.10 K/uL [facility] ABSOLUTE EOS 0.08 0.00 - 0.50 K/uL [facility] ABSOLUTE BASOS 0.03 0.00 - 0.15 K/uL [facility] Granulocytes, immature 0.01 0.00 - 0.09 K/uL [facility] Blood 04/05/2025 10:0 2 AM EDT 04/05/2025 10:08 AM EDT us Anay Bliss MD LAB BLOOD ORDERABLES Fin al Result [address] [address] * C-Reactive Protein (04/05/2025 10:02 AM EDT) Only the most recent of2 resultswithin the time period is included. C REACTIVE PROTEIN <3.0 0.0 - 4.0 mg/L [facility] Blood 04/05/2025 10:0 2 AM EDT 04/05/2025 10:08 AM EDT us Anay Bliss MD LAB BLOOD ORDERABLES Fin al Result Performing Organization Address [facility] Co de Phone Number [address] [address] * CT SHOULDER WITHOUT CONTRAST (LEFT) (02/22/2025 [...] SEE NARRATIVE - 08/29/2024 4:20 [place] [address] Colorist: Elmer Valdez MD [employer] DEVELOPER Cytology Report FINAL DIAGNOSIS A. PAP SMEAR (THIN PREP) CE: SPECIMEN ADEQUACY: Satisfactory for evaluation; transformation zone present. INTERPRETATION: NEGATIVE FOR INTRAEPITHELIAL LESION OR MALIGNANCY. Atrophy. This specimen was analyzed by the automated ThinPrep Imaging System ([employer] and the selected tadeo were reviewed by a district leader. Electronically Signed Out By: ARMEN Mcgarry(ASCP) ARMEN [...] : 1955 (Age: 68) Sex: F Institution: [facility] Location: [facility] Date of Collection: 08/24/2024 Date of Reported: [...] By: ANAY BLISS I Indications: Postmenopausal Scanner: [employer] Cl[employer] A with serial# of [id number] located at [facility] Bone Density Scan (DXA) 06/26/24 Details of [...] -2.5), or Osteoporosis (T-score <= -2.5). At [facility], T-scores are compared to peak bone density [...] By: ANAY BLISS I Indications: Postmenopausal Scanner: [employer] A with serial# of [id number] located at [facility] Bone Density Scan (DXA) 06/26/24 Details of [...] -2.5), or Osteoporosis (T-score <= -2.5). At [facility], T-scores are compared to peak bone density [...] (09/24/2021 8:17 AM EST) HDL 96 mg/dL [facility] Comment: Interpretation <40 mg/dL: Low HDL cholesterol (major risk factor for CHD) Greater than or equal to 60 mg/dL: High HDL cholesterol ( negative risk factor for CHD) HDL - cholesterol is affected by a number of factors, e.g. smoking, excerise, hormones, sex and age. CHOLESTEROL 228 0 - 240 mg/dL [facility] TRIGLYCERIDES 82 30 - 160 mg/dL [facility] LDL 116 50 - 129 mg/dL [facility] Comment: LDL levels in terms of risk for coronary heart disease: <100 mg/dL: Optimal 100-129 mg/dL: Near or above optimal 130-159 mg/dL: Borderline high 160-189 mg/dL: High >190 mg/dL: Very High CARDIAC RISK RATIO 2.4(L) 3.3 - 4.4 [facility] Blood 09/24/2021 8:17 AM EST 09/24/2021 8:18 AM EST Demetrio Gonzales MD LAB BLOOD ORDERABLES Fi nal Result Performing Organization Address City/[facility]/ZIP Co de Phone Number [address] [address] * (ABNORMAL) Valproic acid (09/24/2021 8:10 AM EST) VALPROIC ACID 41.7(L) 50.0 - 100.0 ug/mL [facility] Blood 09/24/2021 8:10 AM EST 09/24/2021 8:14 AM EST Demetrio Gonzales MD LAB BLOOD ORDERABLES Fi nal Result Performing Organization Address [facility] Co de Phone Number [address] [address] * BI MAMMOGRAM SCREENING WITH TOMOSYNTHESIS WITH [...] SUPPLEMENT B MEDICARE PART A & B [facility] MEDICARE SUPPLEMENT B MEDICARE PART A & B [employer] MEDICARE SUPPLEMENT MEDICARE PART A & B [employer] MEDICARE SUPPLEMENT MEDICARE PART A & B [employer] MEDICARE SUPPLEMENT B MEDICARE PART A & B [employer] MEDICARE SUPPLEMENT B Advance Directives For more information, please contact: [phone] (9AM - 5PM [place], Wednesday-Wednesday) * Full Code (Latest Code Status on File) Date Activated Date Inactivated Comments 02/05/2023 10:00 AM Question Answer Comments Code Status Confirmed With: Patient * Full Code (Presumed) Date Activated Date Inactivated Comments 12/27/2017 12:07 PM 12/28/2017 1:18 PM * Full Code (Presumed) Date Activated Date Inactivated Comments 12/27/2017 6:18 AM 12/27/2017 12:07 PM Care Teams Weigher Packing Relationship Specialty Start Date End Date Lucius Hannon MD [address] [place] [id number] PCP - General Internal Medicine 11/27/24 See Wan MD [address] [place] [address] [email or web address] Historical LMR Provider 06/09/17 Anay Bliss MD [address] [place] [address], [facility] [address] [place] [address] [email or web address] Historical LMR Provider 06/09/17 David Patel DO [address] [place] [address] Orthopedics & Sports Medicine, [place] [address] [email or web address] Historical LMR Provider 06/09/17 Additional Source Comments The information contained in this document represents components of the legal health record. It is not the complete legal health record.[facility]
== END 2025-05-09 11:24 | disposition home or self-care (01) ==
LOC: HO.MAMMO 11:23
PROVIDERS: PCP Student in an Organized Health Care Education/Training Program; Visit Provider Student in an Organized Health Care Education/Training Program
DX: Z12.31 Encounter for screening mammogram for malignant neoplasm of breast (principal)
CPT/HCPCS: 77063; 77067

== ENCOUNTER → 2025-05-09 11:45 | Outpatient (BNV) | payer MEDICARE, OTHER, SELFPAY | PROVIDERS: PCP Student in an Organized Health Care Education/Training Program; Visit Provider Internal Medicine | DX: Z12.31 Encounter for screening mammogram for malignant neoplasm of breast (principal) | CPT/HCPCS: 77063; 77067 ==

== ENCOUNTER 2025-05-15 08:36 | Outpatient (AMB) | payer MEDICARE, OTHER, SELFPAY ==
--- OUTSIDE RECORDS SUMMARY | 2021-05-31 13:10 | XMS_ITS | Encounter Summary ---
Author Organization [facility] Address [address] [place] [address] Phone Care Team Providers Care Radiology Receptionist Name Role Phone See Wan MD Unavailable [phone] Anay Bliss MD Unavailable Tammi Corral PA-C Unavailable [phone] David Patel DO Unavailable Demetrio Gonzales MD Unavailable Linette Echeverria PA-C Unavailable Cirilo Bernard MD Unavailable [phone] Akil Jenkins MD Unavailable [phone] Demetrio Gonzales MD Primary Care Provider Encounter Details Date Type Department Care Team (Late st Contact Info) Description 05/31/2021 1:10 PM EDT Hospital Encounter [facility] Ur[facility] Care [address] [place] [address] Belia Quintero FNP [address] [place] [address] [email or web address] Social History Tobacco Use Types Packs/Day Years Used Date Smoking Tobacco: Never Smokeless Tobacco: Never Alcohol Use Standard Drinks/Week Comments Yes 2 (1 standard drink = 0.6 oz pur e alcohol) weekends Education Answer Date Recorded Are you interested in more education? Not on herve e 12/17/2022 Are you concerned about learning? Not on file 12/17/2022 No 12/17/2022 No 12/17/2022 Digital Access Answer Date Recorded No 01/16/2023 No 01/16/2023 Reliable internet access at home? Not on file 01/16/2023 Device with a working camera? Not on file Comments No Sex and Gender Information Value Date Recorded Sex Assigned at Female 08/05/2018 10:39 PM EST Legal Sex Female 6:48 PM EST Gender Identity Female 08/05/2018 10:39 PM EST Sexual Orientation Straight 01/15/2023 7: 06 PM EDT documented as of this encounter Functional Status * Calculated C-SSRS Risk Score (Lifetime/Recent) Answer Date of Assessment Author No Risk Indicated 02/05/2023 10:22 PM EDT Prashant Gutiérrez RN * [place] Suicide Severity Rating Scale (Screener/Recent Self-Report) Question Answer Date of Assessment Author 1. Wish to be (Past 1 Month) No 023 10:22 PM EDT Prashant uGtiérrez RN 2. Non-Specific Active Suici yola Thoughts (Past 1 Month) No 02/05/2023 10:22 PM EDT Max Gutiérrez RN 6. Suicidal Behavior (Lifetime) No 3 10:22 PM EDT Prashant Gutiérrez, SHABANA documented as of this encounter Plan of Treatment Upcoming Encounters Date Type Department Care Team (Late st Contact Info) Description 06/20/2025 8:00 AM EDT Office Visit [facility] Orthopedics & Sports Medicine [address] [place] [address] Cameron Hayward PA-C [address] [place] [address] [place] [address] [email or web address] 07/16/2025 Procedure Pass OR Admitting Dept - Virtual Department [address] [place] [address] 07/16/2025 7:30 AM EST Hospital Encounter OR Admitting Dept - Virtual Department [address] [place] [address] David Patel DO 4 [facility] [place] [address] 07/16/2025 7:30 AM EST - 07/16/2025 9:55 AM EST Surgery OR Admitting Dept - Virtual Department [address] [place] [address] David Patel DO [address] [place] [address] [facility] [place] [address] ARTHROPLASTY ANATOMIC INVERSE SHOULDER 08/01/2025 8:00 AM EST Office Visit [facility] Orthopedics & Sports Medicine [address] [place] [address] Cameron Hayward PA-C [address] [place] [address] 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 Narrative 05/31/2021 1:28 PM EDT XR WRIST 3 OR MORE VIEWS (RIGHT) COMPARISON: None FINDINGS: No fracture. Normal alignment. Base of thumb degenerative changes at the STT joint. Procedure Note Markus Mansfield MD, PhD - 05/31/2021 XR WRIST 3 OR MORE VIEWS (RIGHT) COMPARISON: None FINDINGS: No fracture. Normal alignment. Base of thumb degenerative changes at theSTT joint. IMPRESSION: No fracture or dislocation. 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 IMG XR UPPER EXTREMITY Ria l Result documented in this encounter Visit Diagnoses Not on filedocumented in this encounter Care Teams Radiology Receptionist Relationship Specialty Start Date End Date Demetrio Gonzales MD [address] [place] [address] [place] [address] PCP - General 06/10/17 11/26/24 See Wan MD [address] [place] [address] [email or web address] Historical LMR Provider 06/09/17 Anay Bliss MD [address] [place] [address], [facility] [address] [place] [address] [email or web address] Historical LMR Provider 06/09/17 Tammi Corral PA-C [address] [place] [address] Orthopedics [facility], [place] [address] Historical LMR Provider 06/09/17 08/30/21 David Patel DO [address] [place] [address] [place] [address] [email or web address] Historical LMR Provider 06/09/17 Demetrio Gonzales MD [address] [place] [address] [place] [address] Historical LMR Provider 06/09/17 2 Linette Echeverria PA-C [address] [place] [address] Orth[facility]ics [facility], [place] [address] [email or web address] Historical LMR Provider 06/09/17 08/30/21 Cirilo Bernard MD [address] [place] [address], [facility] [address] [place] [address] Historical LMR Provider 06/09/17 08/30/21 Akil Jenkins MD [address] [place] [address] Historical LMR Provider 06/09/17 2 documented as of this encounter Additional Source Comments The information contained in this document represents components of the legal health record. It is not the complete legal health record.[facility]
--- OUTSIDE RECORDS SUMMARY | 2021-06-04 15:30 | XMS_ITS | Encounter Summary ---
Author Organization [facility] Address [address] [place] [address] Phone Care Team Providers Care Director Counseling Bureau Name Role Phone See Wan MD Unavailable [phone] Anay Bliss MD Unavailable Tammi Corral PA-C Unavailable [phone] David Patel DO Unavailable Demetrio Gonzales MD Unavailable Linette Echeverria PA-C Unavailable [phone] Cirilo Bernard MD Unavailable [phone] Akil Jenkins MD Unavailable [phone] Demetrio Gonzales MD Primary Care Provider Encounter Details Date Type Department Care Team (Late st Contact Info) Description 06/04/2021 3:30 PM EDT Hospital Encounter [facility] [address] [place] [address] Ginny Pacheco PA 12 [place] [address] [email or web address] Social History Tobacco Use Types Packs/Day Years [...] 10:22 PM EDT Prashant Gutiérrez RN * [place] Suicide Severity Rating Scale (Screener/Recent Self-Report) Question Answer Date of Assessment Author 1. Wish to be (Past 1 Month) No 023 10:22 PM EDT Prashant Gutiérrez RN 2. Non-Specific Active Suici yola Thoughts (Past 1 Month) No 02/05/2023 10:22 PM EDT Max Gutiérrez, SHABANA 6. Suicidal Behavior (Lifetime) No 10:22 PM EDT Prashant Gutiérrez, SHABANA documented as of this encounter Plan of Treatment Upcoming Encounters Date Type Department Care Team (Late st Contact Info) Description 06/20/2025 8:00 AM EDT Office Visit [facility] Orthopedics & Sports Medicine [address] [place] [address] Cameron Hayward PA-C [address] [place] [address] [place] [address] [email or web address] 07/16/2025 Procedure Pass OR Admitting Dept - Virtual Department [address] [place] [address] 07/16/2025 7:30 AM EST Hospital Encounter OR Admitting Dept - Virtual Department [address] [place] [address] David Patel DO 4 [facility] Orthopedics & [place] [address] 07/16/2025 7:30 AM EST - 07/16/2025 9:55 AM EST Surgery OR Admitting Dept - Virtual Department [address] [place] [address] David Patel DO 4 [facility] Orthopedics & Sports [place] [address] ARTHROPLASTY ANATOMIC INVERSE SHOULDER 08/01/2025 8:00 AM EST Office Visit [facility] Orthopedics & Sports Medicine [address] [place] [address] Cameron Hayward PA-C [address] [place] [address] [place] [address] [email or web address] 08/29/2025 9:00 AM EST Office Visit [facility] Orthopedics & Sports Medicine [address] [place] [address] David Patel DO [address] [place] [address] Orthopedics & Sports [place] [address] 10/29/2025 8:00 AM EDT Office Visit [facility] Rheumatology [address] [place] [address] [place] [address] Anay Bliss MD [address] [place] [address], [address] [place] [address] [email or web address] Scheduled Procedures Name Priority Associated Diagnoses Date/Ti me ARTHROPLASTY ANATOMIC INVERSE SHOULDER Instability of prosthetic shoulder joint, sequela 07/16/2025 7:30 AM EST documented as of this encounter Procedures Procedure Name Priority Date/Time Associated Diagnosis Comments XR ANKLE 3 OR MORE VIEWS (RIGHT) Urgent/patient waiting 06/04/2021 3:42 PM EDT Contusion of right ankle, initial encounter documented in this encounter Results * XR ANKLE 3 OR MORE VIEWS (RIGHT) (06/04/2021 3:42 PM EDT) Anatomical Region Laterality Modality Ankle Right Computed Radiogr aphy 06/04/2021 3:58 PM EDT Impressions 06/04/2021 4:00 PM EDT No fracture or dislocation. Narrative 06/04/2021 4:00 PM EDT XR ANKLE 3 OR MORE VIEWS (RIGHT) COMPARISON: Right ankle radiograph dated April 22, 2007. FINDINGS: No fracture. Normal alignment. Symmetric ankle mortise. Normal joint spaces. No soft tissue swelling or ankle effusion. Procedure Note Lety Jacinto MD - 06/04/2021 XR ANKLE 3 OR MORE VIEWS (RIGHT) COMPARISON: Right ankle radiograph dated April 22, 2007. FINDINGS: No fracture. Normal alignment. Symmetric ankle mortise. Normal jointspaces. No soft tissue swelling or ankle effusion. IMPRESSION: No fracture or dislocation. Ginny FERRELL IMG XR LOWER EXTREMITY Final Result documented in this encounter Visit Diagnoses Not on filedocumented in this encounter Care Teams Director Counseling Bureau Relationship Specialty Start Date End Date Demetrio Gonzales MD [address] [place] [address] [place] [address] PCP - General 06/10/17 11/26/24 See Wan MD [address] [place] [address] [email or web address] Historical LMR Provider 06/09/17 Anay Bliss MD 22 [facility], [facility] 203 [place] [address] Historical LMR Provider 06/09/17 Tammi Corral PA-C [address] [place] [address] Orthopedics Sports [facility], [place] [address] Historical LMR Provider 06/09/17 08/30/21 David Patel DO [address] [place] [address] [facility], [place] [address] [email or web address] Historical LMR Provider 06/09/17 Demetrio Gonzales MD [address] [place] [address] [place] [address] Historical LMR Provider 06/09/17 Linette Patel PA-C [address] [place] [address] Orthopedics Sports [facility], [place] [address] Historical LMR Provider 06/09/17 08/30/21 Cirilo Bernard MD [address] [place] [address], [facility] [address] [place] [address] Historical LMR Provider 06/09/17 08/30/21 Akil Jenkins MD [address] [place] [address] Historical LMR Provider 06/09/17 2 documented as of this encounter Additional Source Comments The information contained in this document represents components of the legal health record. It is not the complete legal health record.[facility]
--- OUTSIDE RECORDS SUMMARY | 2021-10-18 10:29 | XMS_ITS | Encounter Summary ---
Author Organization [facility] Address [address] [place] [address] Phone Care Team Providers Care Rent And Housing Investigator Name Role Phone See Wan MD Unavailable [phone] Anay Bliss MD Unavailable [phone] David Patel DO Unavailable [phone] Demetrio Gonzales MD Primary Care Provider Encounter Details Date Type Department Care Team (Late st Contact Info) Description 10/18/2021 9:29 AM EST Hospital Encounter [facility] [address] [place] [address] [phone] Latoya Miller, RECTIFIER OPERATOR [address] [place] [address] [email or web address] Social History Tobacco Use Types Packs/Day Years [...] 10:22 PM EDT Prashant Gutiérrez RN * [place] Suicide Severity Rating Scale (Screener/Recent Self-Report) Question [...] Description 06/20/2025 8:00 AM EDT Office Visit [facility] Orthopedics & Sports Medicine [address] [place] [address] Cameron Hayward PA-C [address] [place] [address] [place] [address] [email or web address] 07/16/2025 Procedure Pass OR Admitting Dept - Virtual Department [address] [place] [address] 07/16/2025 7:30 AM EST Hospital Encounter [place] Admitting Dept - Virtual Department [address] [place] [address] David Patel DO [address] [place] [address] Orthopedics & Sports Medicine, [place] [address] 07/16/2025 7:30 AM EST - 07/16/2025 9:55 AM EST Surgery OR Admitting Dept - Virtual Department [address] [place] [address] David Patel DO [address] [place] [address] [facility] [place] [address] ARTHROPLASTY ANATOMIC INVERSE SHOULDER 08/01/2025 8:00 AM EST Office Visit [facility] Orthopedics & Sports Medicine [address] [place] [address] Cameron Hayward PA-C [address] [place] [address] [place] [address] [email or web address] 08/29/2025 9:00 AM EST Office Visit [facility] Orthopedics & Sports Medicine [address] [place] [address] David Patel DO [address] [place] [address] Orthopedics [facility] [place] [address] 10/29/2025 8:00 AM EDT Office Visit [facility] Rheumatology [address] [place] [address] Anay Bliss MD [address] [place] [address], [address] [place] [address] [email or web address] Scheduled Procedures Name Priority Associated [...] IMPRESSION: No displaced rib fracture. Latoya Miller [facility] IMG XR CHEST Final R esult documented in this encounter Visit Diagnoses Not on filedocumented in this encounter Care Teams Rent And Housing Investigator Relationship Specialty Start Date End Date Demetrio Gonzales MD [address] [place] [address] [place] [address] PCP - General 06/10/17 11/26/24 See Wan MD [address] [place] [address] [email or web address] Historical LMR Provider 06/09/17 Anay Bliss MD [address] [place] [address], [address] [place] [address] [email or web address] Historical LMR Provider 06/09/17 David Patel DO [address] [place] [address] Orthopedics & Sports Medicine, [place] [address] [email or web address] Historical LMR Provider 06/09/17 documented as of this encounter Additional Source Comments The information contained in this document represents components of the legal health record. It is not the complete legal health record.[facility]
--- OUTSIDE RECORDS SUMMARY | 2024-01-30 09:35 | XMS_ITS | Encounter Summary ---
Author Organization [facility] Address [address] [place] [address] [place] [address] Phone Care Team Providers Care Special Population Paraprofessional Name Role Phone See Wan MD Unavailable Anay Bliss MD Unavailable [phone] David Patel DO Unavailable [phone] Demetrio Gonzales MD Primary Care Provider Encounter Details Date Type Department Care Team (Late st Contact Info) Description 01/30/2024 9:35 AM EDT Hospital Encounter [facility] [address] [place] [address] Maira Bolden CNP 12 [place] [address] [email or web address] Social History Tobacco Use Types [...] Description 06/20/2025 8:00 AM EDT Office Visit [facility] Orthopedics & Sports Medicine [address] [place] [phone] Cameron Hayward PA-C [address] [place] [address] [place] [address] [email or web address] 07/16/2025 Procedure Pass OR Admitting Dept - Virtual Department [address] [place] [address] 07/16/2025 7:30 AM EST Hospital Encounter OR Admitting Dept - Virtual Department [address] [place] [phone] David Patel DO [address] [place] [address] [facility] [place] [address] 07/16/2025 7:30 AM EST - 07/16/2025 9:55 AM EST Surgery OR Admitting Dept - Virtual Department [address] [place] [address] David Patel DO [address] [place] [address] Orthopedics & Sports [facility] [place] [address] ARTHROPLASTY ANATOMIC INVERSE SHOULDER 08/01/2025 8:00 AM EST Office Visit [facility] Orthopedics & Sports Medicine [address] [place] [address] Cameron Hayward PA-C [address] [place] [address] [place] [address] [email or web address] 08/29/2025 9:00 AM EST Office Visit [facility] Orthopedics & Sports Medicine [address] [place] [address] David Patel DO [address] [place] [address] [facility] [place] [address] 10/29/2025 8:00 AM EDT Office Visit [facility] Rheumatology [address] [place] [address] Anay Bliss MD 22 [facility], [address] [place] [address] [email or web address] Scheduled Procedures Name Priority Associated [...] report originally createdby Geri Givens. Maira Bolden INTERN IMG XR LOWER EXTREMITY Ria l Result documented in this encounter Visit Diagnoses Not on filedocumented in this encounter Care Teams Special Population Paraprofessional Relationship Specialty Start Date End Date Demetrio Gonzales MD [address] [place] [address] [place] [address] PCP - General 06/10/17 11/26/24 See Wan MD [address] [place] [address] [email or web address] Historical LMR Provider 06/09/17 Anay Bliss MD [address] [place] [address], [facility] [address] [place] [address] [email or web address] Historical LMR Provider 06/09/17 David Patel DO [address] [place] [address] [facility] [place] [address] [email or web address] Historical LMR Provider 06/09/17 documented as of this encounter Additional Source Comments The information contained in this document represents components of the legal health record. It is not the complete legal health record.[facility]
--- OUTSIDE RECORDS SUMMARY | 2025-05-14 08:00 | XMS_ITS | Encounter Summary ---
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 07/16/25 surgery left shoulder repair * Consultation (Routine) - Authorized Specialty Diagnoses / Procedures Referred By Edmond leo Referred To Contact Rheumatology Diagnoses Return in about 6 months (around 05/11/2025). Procedures FOLLOW UP Lucius Hannon MD [address] [place] [address] [address] Phone: tel: fax: [facility] [address] [place] [address] [place] [address] Phone: tel: fax: Referral ID Status Reason Start Date Expiration Date V isits Requested Visits Authorized [id number] Authorized 05/04/2025 05/04/2026 99 99 Encounter Details Date Type Department Care Team (Latest Contact Info) Description 05/14/2025 8:00 AM EDT Office Visit [facility] [address] [place] [address] [place] [address] Anay Bliss MD [address] [place] [address], [address] [place] [address] [email or web address] Primary osteoarthritis involving multiple joints (Primary Dx); Personal history of calcium pyrophosphate deposition disease (CPPD); Osteopenia of neck of right femur; NSAID long-term use; Dupuytren's disease of both palm and finger without contracture; Gastroesophageal reflux disease without esophagitis; Aspirin long-term use; On statin therapy Social History Tobacco Use Types Packs/Day Years [...] Sign Reading Time Taken Comments Blood Pressure 130/70 05/14/2025 7:56 AM EDT Pulse 89 05/14/2025 7:56 AM EDT Temperature - - Respiratory Rate - - Oxygen Saturation 99% 05/14/2025 7:5 6 AM EDT Inhaled Oxygen Concentration - - Weight 65.6 kg (144 lb 11.2 oz) 05/14/2025 7:56 AM EDT patient reported Height 160 cm (5' 3 ) 05/14/2025 7:56 AM EDT Body Mass Index 25.63 05/14/2025 7:56 AM EDT documented in this encounter Progress Notes * Anay Bliss MD - 05/14/2025 8:00 AM EDT Patient: Megan [place] : 1955 Date: 05/14/2025 Time: 8:24 AM HPI: Megan [place] is a 69 y.o.female here for a 6 mths follow-up of her Primary osteoarthritis involving multiple joints [M15.0], calcium pyrophosphate deposition disease, bilateral carpal tunnel syndrome, status post left total knee replacement in September 2016. Since last visit on 11/08/2024 Megan reports more back spasms recently for which Soma once or twice daily helps quite well. About 2 weeks ago underwent sleep study but has not heard anything about the results yet and plans to call to find out. She is getting ready for left shoulder repair surgery in June 2025 due to reappearing bone spurs. She decreased frequency of nabumetone to every other day 500 mg daily and her sodium and chloride normalized almost completely. She is decreasing dose of omeprazole from 40 mg in the past to only intermittent intake of 20 mg tablet. She was seen by Dr. Olmos at [facility] last week regarding her back issues and continues with tramadol 50 mg twice daily. She follows up with him every 3 months. There are few headaches every now and they are usually around her right eye. She admits to IBS symptoms but no other abnormalities from respiratory or cardiovascular organ systems. She is sleeping so-so, her energy and appetite are stable. She uses Voltaren gel in addition to intermittently Tylenol cream 5-6 times a day but does not findit helpful. She walks daily with her 17 pounds 10-year-old lassa morenoo puddle about 25 minutes and enjoys it. She is getting ready for a 3-week vacation in [place], [place] next week. Her retired in late November 2023 so they have more time to walk together. She got BMD at [facility] on that revealed mild osteopenia within right femoral neck though stable comparing to prior study from April 2020. She broke her sternum in May 2023 while in [place] because of tripping on a shoe at night wherethere was no light available. Upon return from [place] she was diagnosed with COVID-19 infection that was mild and she has not required Paxlovid. In August 2023 her slipper got caught, she fell and broke R 6th & 7th v ribs. She grades the pain at 5/10. There is mild swelling diffusely on carpal region and across the MCP, PIP and DIP joints of both hands. No acute attacks of joint pains with redness, hot and swollen appearance.. She is very pleased with bilateral cataract surgery that allows her to do well without eyeglasses. Legs got better after she received cortisone injection in late August [address] Olmos-she gotupdated lumbar spine MRI prior to injection and reports 75% improvement- no longer dragging LLE . In the past she took daily nabumetone in addition to topical Voltaren. No red, hot or swollen joints except for feet that are diffusely swollen and sore. No pseudogout attacks. Rare headaches, no mucosal ulcerations, fevers, chills or night sweats. She suffered from severe headache in November 2023 that was on the back of her head associated with vomiting and lost about 10 pounds of weight-she was diagnosed with migraine at that time. She admits that during fall and winter she frequently is not going out to walk because of poor weather condition but also admits that she is only doing sitting exercises on a small bike. No recent bout of trigeminal neuralgia. Luckily there were no episodes of pseudogout attacks and she has not required any colchicine. She used colchicine last time before June 2020. There is swelling over both hands but no redness or hot appearance. She got bilateral hearing aids in February 2020 by [employer] and finds them helpful. She thanks her for encouraging her to get them. She has a hard time making fist, opening bottles or jars. In place of morphine she is taking combination of trazodone 1-2 tablets twice daily as needed and tramadol with at times poor response unfortunately. Past Medical History: Diagnosis Date Acid reflux Arthritis Asthma Erythema nodosum Gout History of cardiac murmur Hypertension Lumbar herniated disc L2-L3, L4-L5 Migraines using depakote for this no siezures Rheumatoid arthritis Trigeminal neuralgia of right side of face 09/2017 pain is currently controlled was on prednisone Wears glasses Wears partial dentures Past Surgical History: Procedure Laterality Date ARTHROPLASTY TOTAL SHOULDER Left 12/27/2017 Performed by David Patel DO at [facility] OR BLADDER SUSPENSION 06/09/2010 BREAST NEEDLE BIOPSY Left 1973 CARPAL TUNNEL RELEASE Right 02/05/2023 CATARACT EXTRACTION Bilateral COLONOSCOPY COMBINED HYSTEROSCOPY DIAGNOSTIC / D&C 03/03/2017 ELBOW ARTHROSCOPY ENDOSCOPIC RELEASE CARPAL TUNNEL Right 02/05/2023 Performed by Surendra Cruz MD at [facility] OR HERNIA REPAIR 1992 hiatal SHOULDER ARTHROSCOPY 07/11/2013 right shoulder arthroscopy, debride; Dr. Wan SHOULDER ARTHROSCOPY 01/2009 Left shoulder arthroscopic distal claviculectomy; Dr. Wan TONSILLECTOMY AND ADENOIDECTOMY TOTAL KNEE ARTHROPLASTY 10/19/2016 Left Total Knee Replacement, Dr Wan TOTAL SHOULDER ARTHROPLASTY Left 12/27/2017 Dr Patel TOTAL SHOULDER REPLACEMENT Right 03/22/2017 Medications: Current Outpatient Medications Medication Sig Dispense Refill Last Dispense albuterol 90 mcg/actuation inhaler Unknown (patient-reported) amLODIPine (NORVASC) 10 MG tablet Take 10 mg by mouth daily. Unknown (patient-reported) aspirin 81 MG EC tablet Take 81 mg by mouth daily. Unknown (patient-reported) carBAMazepine (CARBATROL) 100 mg 12 hr capsule Take 100 mg by mouth. Unknown (patient-reported) carisoprodol (SOMA) 350 MG tablet Take 350 mg by mouth 2 (two) times a day as needed. Unknown (patient-reported) colchicine (COLCRYS) 0.6 mg tablet TAKE 1 TABLET BY MOUTH AT FIRST SIGN OF ATTACK, OK TO REPEAT IN 1 HOUR IF NOT BETTER 30 tablet 2 Unknown (outside pharmacy) divalproex (DEPAKOTE ER) 500 MG ER 24 hr tablet Take 1,000 mg by mouth daily. Unknown (patient-reported) DULoxetine (CYMBALTA) 60 MG capsule Take 60 mg by mouth daily. Unknown (patient-reported) fluticasone-salmeterol (ADVAIR DISKUS) 250-50 mcg/dose DISKUS Inhale 1 puff into the lungs 2 (two) times a day as needed. Unknown (patient-reported) hyoscyamine (LEVBID) 0.375 mg 12 hr tablet Take 1 tablet by mouth 2 (two) times a day. Unknown (patient-reported) lisinopril (PRINIVIL,ZESTRIL) 5 MG tablet Take 5 mg by mouth daily. Unknown (patient-reported) nabumetone (RELAFEN) 500 MG tablet take 1 tablet by mouth twice daily 180 tablet 1 Unknown (outsidepharmacy) omeprazole (PRILOSEC) 40 MG capsule Take 40 mg by mouth daily as needed. Unknown (patient-reported) oxybutynin (DITROPAN XL) 15 MG 24 hr tablet Take 1 tablet by mouth daily. Unknown (patient-reported) psyllium (METAMUCIL) 0.4 gram capsule Take 1.2 g by mouth daily. Unknown (patient-reported) rosuvastatin (CRESTOR) 10 MG tablet Take 10 mg by mouth daily. Unknown (patient-reported) traMADoL (ULTRAM) 50 mg tablet Take 1-2 tablets (50-100 mg total) by mouth every 8 (eight) hours asneeded for pain (specific location in comments). 5 tablet 0 Unknown (outside pharmacy) triamterene-hydroCHLOROthiazide (MAXZIDE-25) 37.5-25 mg per tablet Take 1 tablet by mouth daily. Unknown (patient-reported) No current facility-administered medications for this visit. Allergies: Allergies Allergen Reactions Gabapentin VISION CHANGES Keflex [Cephalexin] Nausea and/or Vomiting Meloxicam Blurred vision Sulfa (Sulfonamide Antibiotics) Hives Social History: reports that she has never smoked. She has never used smokeless tobacco. She reports current alcohol use of about 2.0 - 3.0 standard drinks of alcohol per week. She reports that she does not use drugs. She plans to go for 1 month to [place] in May 2025 Family History: family history includes Arthritis in an other family member; Cancer in her maternal grandfather; Diabetes mellitus in her maternal grandfather; Heart disease in an other family member; Hypertension in her mother; Myocarditis in her father; Osteoporosis in an other family member; Other in an other family member; Stroke in her mother. No interval changes in social and family history. ROS: Complete review of systems performed and negative except as in HPI above Physical Exam: BP 130/70 (BP Location: Right arm, Patient Position: Sitting, Cuff Size: Medium) Pulse 89 Ht 160 cm (5' 3 ) Wt 65.6 kg (144 lb 11.2 oz) Comment: patient reported LMP (LMP Unknown) SpO2 99% BMI 25.63 kg/m?? Pleasant, middle aged female in no acute distress. Alert, oriented x3. HEENT: NC, AT, normal EEN exam Neck supple, symmetric, no lymphadenopathy or thyromegaly Cor: regular, no murmur or rub Lungs: clear to auscultation bilaterally Abd: soft, nontender, nl bs, no organomegaly or masses Ext: no edema, cyanosis or clubbing MSK: Mildly reduced abduction and tenderness to gentle palpation in the left shoulder although no active glenohumeral effusion. Normal bilat elbow & wrist exam except for mild localized tenderness over R epicondyle. Diffusely swollen hands, L>R. Mildly swollen and tender PIP joints, R>L especially R 4th. Thickness over the 2nd and 3rd MCP, R >L Bilateral Heberden's nodes, especially 2nd & 5th. Mild bilateral 4th Dupuytren's fibromatosis, R>L. R thumb hurts while tested in extension against resistance along thumb extensor tendon. Cardiac Cath Tech strength 4/5 bilaterally, negative Tinel sign on the left, equivocal on the right. Both hands appear puffy. Tenderness in cervical thoracic junction and lumbosacral spine but no radiculopathy or stepup. Decreased cervical spine rotation toward R side. Relatively normal bilateral hip exam except decreased internal rotation, L>R. Tenderness, soft tissue overgrowth mostly laterally in the left knee-status post L total knee replacement Normal ankles, subtalar joints, MTP, IP exam. Neuro: no focal deficits Skin: clear Labs: Hospital Outpatient Visit on 04/25/2025 Component Date Value Ref Range Status WBC 04/25/2025 4.35 4.00 - 11.00 K/uL Final RBC 04/25/2025 4.03 4.00 - 5.20 M/uL Final HGB 04/25/2025 12.8 12.0 - 16.0 g/dL Final HCT 04/25/2025 37.0 36.0 - 46.0 % Final PLT 04/25/2025 237 150 - 450 K/uL Final MCV 04/25/2025 91.8 80.0 - 100.0 fL Final MCH 04/25/2025 31.8 (H) 27.0 - 31.0 pg Final MCHC 04/25/2025 34.6 32.0 - 36.0 g/dL Final RDW 04/25/2025 12.8 11.5 - 14.5 % Final MPV 04/25/2025 9.5 8.4 - 12.0 fL Final NRBC 04/25/2025 0.00 0.00 /100 WBCs Final ABSOLUTE NRBC 04/25/2025 0.00 0.00 K/uL Final SODIUM 04/25/2025 129 (L) 133 - 146 mmol/L Final POTASSIUM 04/25/2025 4.4 3.3 - 5.1 mmol/L Final CHLORIDE 04/25/2025 91 (L) 96 - 108 mmol/L Final CO2 04/25/2025 27 21 - 35 mmol/L Final BUN 04/25/2025 14 6 - 19 mg/dL Final CREATININE 04/25/2025 0.40 (L) 0.5 - 1.5 mg/dL Final GLUCOSE 04/25/2025 84 70 - 99 mg/dL Final ALBUMIN 04/25/2025 4.4 3.9 - 4.8 g/dL Final TOTAL PROTEIN 04/25/2025 7.0 6.5 - 8.0 g/dL Final CALCIUM 04/25/2025 10.0 8.4 - 10.3 mg/dL Final ALKALINE PHOSPHATASE 04/25/2025 73 39 - 117 U/L Final TOTAL BILIRUBIN 04/25/2025 0.3 0.0 - 1.2 mg/dL Final AST 04/25/2025 30 0 - 37 U/L Final ALT 04/25/2025 28 0 - 40 U/L Final GLOBULIN 04/25/2025 2.6 1 - 4.8 g/dL Final EGFR 04/25/2025 106 >59 mL/min/1.73m2 Final Estimated glomerular filtration rate calculated using the CKD-EPI refit equation. ANION GAP 04/25/2025 15 10 - 20 mmol/L Final Hospital Outpatient Visit on 04/16/2025 Component Date Value Ref Range Status Antibody Screen 04/16/2025 Negative Final Resulting Agency 04/16/2025 [facility] Final ABO/Rh 04/16/2025 A Positive Final Resulting Agency 04/16/2025 [facility] Final HEMOGLOBIN A1C 04/16/2025 5.5 4.3 - 5.8 % Final SODIUM 04/16/2025 125 (L) 133 - 146 mmol/L Final CHLORIDE 04/16/2025 87 (L) 96 - 108 mmol/L Final POTASSIUM 04/16/2025 4.2 3.3 - 5.1 mmol/L Final CO2 04/16/2025 26 21 - 35 mmol/L Final BUN 04/16/2025 8 6 - 19 mg/dL Final CREATININE 04/16/2025 0.40 (L) 0.5 - 1.5 mg/dL Final GLUCOSE 04/16/2025 111 (H) 70 - 99 mg/dL Final CALCIUM 04/16/2025 9.2 8.4 - 10.3 mg/dL Final EGFR 04/16/2025 106 >59 mL/min/1.73m2 Final Estimated glomerular filtration rate calculated using the CKD-EPI refit equation. ANION GAP 04/16/2025 16 10 - 20 mmol/L Final Hospital Outpatient Visit on 04/05/2025 Component Date Value Ref Range Status WBC 04/05/2025 4.33 4.00 - 11.00 K/uL Final RBC 04/05/2025 4.07 4.00 - 5.20 M/uL Final HGB 04/05/2025 13.0 12.0 - 16.0 g/dL Final HCT 04/05/2025 37.7 36.0 - 46.0 % Final PLT 04/05/2025 254 150 - 450 K/uL Final MCV 04/05/2025 92.6 80.0 - 100.0 fL Final MCH 04/05/2025 31.9 (H) 27.0 - 31.0 pg Final MCHC 04/05/2025 34.5 32.0 - 36.0 g/dL Final RDW 04/05/2025 12.8 11.5 - 14.5 % Final MPV 04/05/2025 9.3 8.4 - 12.0 fL Final NRBC 04/05/2025 0.00 0.00 /100 WBCs Final ABSOLUTE NRBC 04/05/2025 0.00 0.00 K/uL Final DIFF METHOD 04/05/2025 Auto Final NEUTS 04/05/2025 54.6 48.0 - 76.0 % Final LYMPHS 04/05/2025 33.9 18.0 - 41.0 % Final MONOS 04/05/2025 8.8 4.0 - 11.0 % Final EOS 04/05/2025 1.8 0.0 - 5.0 % Final BASOS 04/05/2025 0.7 0.0 - 1.5 % Final Granulocytes, immature (%) 04/05/2025 0.2 0.0 - 0.9 % Final ABSOLUTE NEUTS 04/05/2025 2.36 1.92 - 7.60 K/uL Final ABSOLUTE LYMPHS 04/05/2025 1.47 0.72 - 4.10 K/uL Final ABSOLUTE MONOS 04/05/2025 0.38 0.16 - 1.10 K/uL Final ABSOLUTE EOS 04/05/2025 0.08 0.00 - 0.50 K/uL Final ABSOLUTE BASOS 04/05/2025 0.03 0.00 - 0.15 K/uL Final Granulocytes, immature 04/05/2025 0.01 0.00 - 0.09 K/uL Final ESR 04/05/2025 3 0 - 30 mm/h Final C REACTIVE PROTEIN 04/05/2025 <3.0 0.0 - 4.0 mg/L Final SODIUM 04/05/2025 130 (L) 133 - 146 mmol/L Final POTASSIUM 04/05/2025 4.7 3.3 - 5.1 mmol/L Final CHLORIDE 04/05/2025 92 (L) 96 - 108 mmol/L Final CO2 04/05/2025 29 21 - 35 mmol/L Final BUN 04/05/2025 11 6 - 19 mg/dL Final CREATININE 04/05/2025 0.50 0.5 - 1.5 mg/dL Final GLUCOSE 04/05/2025 76 70 - 99 mg/dL Final ALBUMIN 04/05/2025 4.3 3.9 - 4.8 g/dL Final TOTAL PROTEIN 04/05/2025 6.8 6.5 - 8.0 g/dL Final CALCIUM 04/05/2025 9.4 8.4 - 10.3 mg/dL Final ALKALINE PHOSPHATASE 04/05/2025 63 39 - 117 U/L Final TOTAL BILIRUBIN 04/05/2025 <0.2 0.0 - 1.2 mg/dL Final AST 04/05/2025 25 0 - 37 U/L Final ALT 04/05/2025 22 0 - 40 U/L Final GLOBULIN 04/05/2025 2.5 1 - 4.8 g/dL Final EGFR 04/05/2025 100 >59 mL/min/1.73m2 Final Estimated glomerular filtration rate calculated using the CKD-EPI refit equation. ANION GAP 04/05/2025 14 10 - 20 mmol/L Final I have re-reviewed with her report of BMD from at [facility]: Normal total hip and spine L1-L2 bone density with osteopenia within right femoral neck with T-score -1.40-see details in imaging section of [facility]. Assessment and Plan: 1. Primary osteoarthritis involving multiple joints (Primary) Assessment & Plan: Chronic, intermittent stiffness, pain at 5/10. Diffuse [...] from any nonsteroidal anti-inflammatories by mouth and incur more electrolyte abnormalities and risk renal insufficiency with ongoing chronic use in addition to gastritis. I suggested her to switch over to topicals such as Arnica, Biofreeze, [place] dream versus medicated patches such as Salonpas or IcyHot patch and Tylenol Call if worse or with questions/problems. Get labs prior to next visit-standing orders in [facility] Another option may be building up the dose of Cymbalta versus adding/switching to gabapentin Orders: - Comprehensive metabolic panel - C-Reactive Protein - Sedimentation rate (ESR) - CBC and differential 2. Personal history of calcium pyrophosphate deposition disease (CPPD) Assessment & Plan: Reviewed strategy for preventing and dealing with acute attack in details 3. Osteopenia of neck of right femur Assessment & Plan: Proper calcium vitamin D supplementation, fall and fracture prevention strategy, daily weightbearing exercises encouraged to slow the progression of osteopenia. 4. NSAID long-term use Assessment & Plan: Take the lowest dose, with least frequency, for shortest time. Remember to take it always with food. Favor topical over oral preparations. Orders: - Comprehensive metabolic panel - C-Reactive Protein - Sedimentation rate (ESR) - CBC and differential 5. Dupuytren's disease of both palm and finger without contracture Assessment & Plan: Use warm packs followed by baby oil or gentle moisturizer in a circular, spiral or motion starting from the proximal crease toward the distal end of fingers. 6. Gastroesophageal reflux disease without esophagitis Assessment & Plan: Avoid late, large, spicy meals. Keep headboard elevated at 45?? angle for nighttime. Okay to reach for omeprazole 20 mg if necessary-the least frequently the better 7. Aspirin long-term use Assessment & Plan: Avoid falls, injuries and cuts. Monitor for excessive bruising and bleeding. 8. On statin therapy Assessment & Plan: Monitor for muscle tenderness, swelling and weakness I have maintained a long-term, longitudinal relationship with this patient, overseeing care of chronic conditions, including polyarticular osteoarthritis, personal history of calcium pyrophosphate deposition disease, osteopenia within the right femoral neck, GERD, monitoring long-term nonsteroidal anti- antiinflammatory therapy, aspirin and statin. This care relationship has significantly influenced my decision-making and treatment plans during today's encounter. Follow-up: Return in about 6 months (around 11/11/2025). documented in this encounter Miscellaneous Notes * Assessment & Plan Note - Anay Bliss MD - 05/14/2025 8:11 AM EDT Associated Problem(s): Gastroesophageal reflux disease without esophagitis Avoid late, large, spicy meals. Keep headboard elevated at 45?? angle for nighttime. Okay to reach for omeprazole 20 mg if necessary-the least frequently the better * Assessment & Plan Note - Anay Bliss MD - 05/14/2025 8:01 AM EDT Associated Problem(s): On statin therapy Monitor for muscle tenderness, swelling and weakness * Assessment & Plan Note - Anay Bliss MD - 05/14/2025 8:01 AM EDT Associated Problem(s): Aspirin long-term use Avoid falls, injuries and cuts. Monitor for excessive bruising and bleeding. * Assessment & Plan Note - Anya Bliss MD - 05/14/2025 8:01 AM EDT Associated Problem(s): Osteopenia of neck of right femur Proper calcium vitamin D supplementation, fall and fracture prevention strategy, daily weightbearing exercises encouraged to slow the progression of osteopenia. * Assessment & Plan Note - Anay Bliss MD - 05/14/2025 8:01 AM EDT Associated Problem(s): NSAID long-term use Take the lowest dose, with least frequency, for shortest time. Remember to take it always with food. Favor topical over oral preparations. * Assessment & Plan Note - Anay Bliss MD - 05/14/2025 8:01 AM EDT Associated Problem(s): Dupuytren's disease of both palm and finger without contracture Use warm packs followed by baby oil or gentle moisturizer in a circular, spiral or motion starting from the proximal crease toward the distal end of fingers. * Assessment & Plan Note - Anay Bliss MD - 05/14/2025 8:01 AM EDT Associated Problem(s): Personal history of calcium pyrophosphate deposition disease (CPPD) Reviewed strategy for preventing and dealing with acute attack in details * Assessment & Plan Note - Anay Bliss MD - 05/14/2025 8:00 AM EDT Associated Problem(s): Primary osteoarthritis involving multiple joints Chronic, intermittent stiffness, pain at 5/10. Diffuse [...] from any nonsteroidal anti-inflammatories by mouth and incur more electrolyte abnormalities and risk renal insufficiency with ongoing chronic use in addition to gastritis. I suggested her to switch over to topicals such as Arnica, Biofreeze, [place] dream versus medicated patches such as Salonpas or IcyHot patch and Tylenol Call if worse or with questions/problems. Get labs prior to next visit-standing orders in [facility] Another option may be building up the dose of Cymbalta versus adding/switching to gabapentin documented in this encounter Plan of Treatment Upcoming Encounters Date Type Department Care Team (Late st Contact Info) Description 06/20/2025 8:00 AM EDT Office Visit [facility] Medicine [address] [place] [address] [phone] Cameron Hayward PA-C [address] [place] [address] [place] [id number] [email or web address] 07/16/2025 Procedure Pass OR Admitting Dept - Virtual Department [address] [place] [id number] 07/16/2025 7:30 AM EST Hospital Encounter OR Admitting Dept - Virtual Department [address] [place] [phone] David Patel DO 4 [facility] Orthopedics & Sports [facility], [place] [address] 07/16/2025 7:30 AM EST - 07/16/2025 9:55 AM EST Surgery OR Admitting Dept - Virtual Department [address] [place] [id number] David Patel DO 4 [facility] Orthopedics & Sports [facility], [place] [address] ARTHROPLASTY ANATOMIC INVERSE SHOULDER 08/01/2025 8:00 AM EST Office Visit [facility] [address] [place] [phone] Cameron Hayward PA-C [address] [place] [address] [place] [phone] [email or web address] 08/29/2025 9:00 AM EST Office Visit [facility] [address] [place] [id number] David Patel DO 4 [facility] Orthopedics & Sports [facility], [place] [address] 10/29/2025 8:00 AM EDT Office Visit [facility] [address] [place] [address] Anay Bliss MD 22 [facility], [address] [place] [address] [email or web address] Scheduled Orders Name Type Priority Associated Diagnoses Orde r Schedule Comprehensive metabolic panel Lab Routine Primary osteoarthritis involving multiple joints NSAID long-term use Every sixteen weeks for 3 Occurrences starting 05/14/2025 until 05/14/2026 C-Reactive Protein Lab Routine Primary osteoarthritis involving multiple joints NSAID long-term use Every sixteen weeks for 3 Occurrences starting 05/14/2025 until 05/14/2026 Sedimentation rate (ESR) Lab Routine Primary osteoarthritis involving multiple joints NSAID long-term use Every sixteen weeks for 3 Occurrences starting 05/14/2025 until 05/14/2026 CBC and differential Lab Routine Primary osteoarthritis involving multiple joints NSAID long-term use Every sixteen weeks for 3 Occurrences starting 05/14/2025 until 05/14/2026 Scheduled Procedures Name Priority Associated Diagnoses Date/Ti me ARTHROPLASTY ANATOMIC INVERSE SHOULDER Instability of prosthetic shoulder joint, sequela 07/16/2025 7:30 AM EST documented as of this encounter Visit Diagnoses Diagnosis Primary osteoarthritis involving multiple joints- Primary Personal history of calcium pyrophosphate deposition disease (CPPD) Personal history of arthritis Osteopenia of neck of right femur NSAID long-term use Encounter for long-term (current) use of non-steroidal anti-inflammatories Dupuytren's disease of both palm and finger without contracture Gastroesophageal reflux disease without esophagitis Esophageal reflux Aspirin long-term use Encounter for long-term (current) use of aspirin On statin therapy Instability of prosthetic shoulder joint, sequela documented in this encounter Care Teams Major Appliance Assembly Supervisor Relationship Specialty Start Date End Date Lucius Hannon MD [address] [place] [address] PCP - General Internal Medicine 11/27/24 See Wan MD [address] [place] [address] [email or web address] Historical LMR Provider 06/09/17 Anay Bliss MD [address] [facility], [address] [place] [address] [email or web address] Historical LMR Provider 06/09/17 David Patel DO [address] [place] [address] Orthopedics & Sports Medicine, [place] [address] [email or web address] Historical LMR Provider 06/09/17 documented as of this encounter Additional Source Comments The information contained in this document represents components of the legal health record. It is not the complete legal health record.[facility]
--- NOTE | 2025-05-15 08:51 | MHC.OFFVIS ---
Vital Signs 05/15/25 08:56 Height 5 ft 2 in Weight 144 lb 7 oz BMI 26.4 BP 130/72 Blood Pressure Location Rt brachial Position Sitting Pulse 78 Pulse Source Pulse Oximeter Intake Visit Reasons: 1 yr f/up/ preop nov 2 /[facility]le ortho Submarine Diver Required: No Accompanied by: Self / Same As Patient Allergies cephalexin (From KEFLEX) Allergy (Unknown, Verified 05/07/25 11:20) DIARRHEA gabapentin (From NEURONTIN) Allergy (Unknown, Verified 05/07/25 11:20) DIZZINESS- AFFECTED VISION Sulfa (Sulfonamide Antibiotics) (SULFA (SULFONAMIDE ANTIBIOTICS)) Allergy (Unknown, Verified 05/07/25 11:20) ITCH, itchiness Medication List - Last Reconciled 05/15/25 by Dk Saldana MD albuterol sulfate 90 mcg/actuation 2 inhalations inhalation [id number] PRN alprazolam 0.25 mg PO BID PRN amlodipine 10 mg PO DAILY calcium carbonate (Calcium 500) 500 mg PO DAILY carbamazepine ER 100 mg PO TID PRN divalproex ER 1,000 mg PO DAILY duloxetine (Cymbalta) 60 mg PO DAILY fluticasone propion-salmeterol 250-50 mcg/dose 1 ea inhalation BID PRN hyoscyamine sulfate 0.125 mg PO DAILY lisinopril 5 mg PO DAILY loperamide (Imodium A-D) 2 mg PO Q6H PRN multivitamin 1 tab PO DAILY nabumetone 500 mg PO BID omeprazole 20 mg PO DAILY PRN oxybutynin chloride ER 15 mg PO DAILY 90 days rosuvastatin 10 mg PO DAILY tramadol 50 mg PO BID PRN triamterene-hydrochlorothiazid 37.5-25 mg 1 tab PO DAILY HPI Comments Details: Megan returns for follow-up regarding hypertension. In the past, was having very high blood pressures as much as 180 systolic and 90s diastolic. Over time, medications have been optimized and current home blood pressure readings are well within the normal range. Since last seen, she states she is feeling good. No new concerns. No cardiac symptoms. [facility] Medical History Osteoarthritis Pre-op evaluation Elevated liver enzymes Asthma Hematuria UTI (urinary tract infection) GERD (gastroesophageal reflux disease) Urgency incontinence H/O urinary retention Migraines History of urinary retention Urgency of micturition Urge incontinence Subclavian artery stenosis Essential hypertension Surgical History History of colonoscopy (~11/14/18) History of surgery on right wrist History of left shoulder replacement History of left knee replacement History of right shoulder replacement History of tubal ligation History of tonsillectomy Family History Father Heart disease Colon cancer Mother No problems noted. Social History Housing: House Unable to assess alcohol history related to: Unknown Alcohol intake: current Alcohol intake frequency: a few times a week Alcohol type: wine Patient Tobacco Use Status: Never used Tobacco e-Cigarette/Vaping Use: Never Used Advance Directives Date on File: 05/10/23 service: No Current occupational status: retired Cognitive needs: No Hearing needs: Yes (b/l hearing aids) Vision needs: Yes (reading glasses) Review of Systems Const Denies chills, Denies fatigue, Denies fever(s), Denies frequent falls, Denies weakness, Denies weight gain and Denies weight loss ENT Denies dizziness Card Denies chest pain, Denies leg edema, Denies lightheadedness, Denies palpitations, Denies dyspnea and Denies dyspnea on exertion Resp Denies cough, Denies dyspnea and Denies dyspnea on exertion GI Denies hematochezia Musc Denies abnormal gait, Denies muscle weakness, Denies numbness, Denies radiating pain into limb and Denies tingling Neuro Denies abnormal gait, Denies dizziness, Denies frequent falls, Denies numbness, Denies tingling and Denies weakness Endo Denies fatigue and Denies palpitations Physical Exam Vital Signs: Last Vital Signs Pulse 78 05/15/25 08:56 BP 130/72 05/15/25 08:56 BMI result Body Mass Index 26.4 Const General: comfortable and no acute distress Orientation/consciousness: patient oriented x3 HEENT Other: Unremarkable Head: Yes normal to inspection Neck Neck: Yes normal visual inspection Chest Chest palpation & inspection: normal inspection of the chest Resp Auscultation: clear to auscultation bilaterally Cardio Palpation: normal PMI Heart sounds: S1 normal heart sound present, S2 normal heart sound present, no gallops, no murmurs and no rubs GI Palpation (GI): Soft to palpation Back/Spine/Pelvis Other: unremarkable Skin General skin exam: no rashes or lesions noted Neuro General: patient oriented x3 Extrem General: Yes normal to inspection Psych Mental Status: mental status grossly normal Assessment & Plan Assessment & Plan (1) Essential hypertension: Comment: - Blood pressure is well-controlled with current medication regimen. - Instructed to hold lisinopril the morning of the procedure to manage intraoperative blood pressure levels. Code(s): I10 - Essential (primary) hypertension Category: Medical (2) Preoperative cardiovascular examination: Code(s): Z01.810 - Encounter for preprocedural cardiovascular examination Category: Medical Plan Blood pressure is stable on the current regimen including amlodipine, lisinopril, triamterene/hydrochlorothiazide. No specific changes required. With regard to shoulder surgery, may proceed as planned. Low cardiac risk. Cardiac testing-2022 Echocardiogram with LVEF of 59%. Moderate septal hypertrophy. No wall motion abnormalities. No significant valvular findings. In the stress test, able to reach 9 METS on Demetrio protocol and reached target heart rate; no angina. Perfusion imaging was normal. EKG from last week with underlying sinus rhythm at 73/Min; no ischemic changes; normal MA and corrected QT. Coding Level of Care Code Est Pt Level 3 (04209) Diagnoses Essential hypertension I10 Preoperative cardiovascular examination Z01.810
[2025-05-15 08:56] VITALS: BP 130/72; PULSE 78; BMI 26.4
--- OUTSIDE RECORDS SUMMARY | 2025-05-15 09:34 | XMS_ITS | Encounter Summary ---
Author Organization [facility] Address [address] [place] [address] [place] [address] Phone Care Team Providers Care Waste Water Worker Name Role Phone See Wan MD Unavailable [phone] Anay Bliss MD Unavailable Tammi Corral PA-C Unavailable [phone] David Patel DO Unavailable Demetrio Gonzales MD Unavailable [phone] Linette Echeverria PA-C Unavailable Cirilo Bernard MD Unavailable [phone] Akil Jenkins MD Unavailable [phone] Demetrio Gonzales MD Primary Care Provider Lucius Hannon MD Primary Care Provid er Encounter Details Date Type Department Care Team (Late st Contact Info) Description 06/22/2018 Ancillary Orders [facility] [address] [place] [address] Suad Hardy MD [address] [facility], [address] [place] [address] [email or web address] Breast screening Social History Tobacco Use Types [...] Description 06/20/2025 8:00 AM EDT Office Visit [facility] Orthopedics & Sports Medicine [address] [place] [address] Cameron Hayward PA-C [address] [place] [address] [place] [address] [email or web address] 07/16/2025 Procedure Pass OR Admitting Dept - Virtual Department [address] [place] [address] 07/16/2025 7:30 AM EST Hospital Encounter OR Admitting Dept - Virtual Department [address] [place] [address] David Patel DO 4 [facility] Orthopedics & Sports [facility], [place] [address] 07/16/2025 7:30 AM EST - 07/16/2025 9:55 AM EST Surgery OR Admitting Dept - Virtual Department [address] [place] [address] David Patel DO 4 [facility] Orthopedics Sports [facility], [place] [address] ARTHROPLASTY ANATOMIC INVERSE SHOULDER 08/01/2025 8:00 AM EST Office Visit [facility] Orthopedics & Sports Medicine [address] [place] [address] Cameron Hayward PA-C [address] [place] [address] [place] [address] [email or web address] 08/29/2025 9:00 AM EST Office Visit [facility] Orthopedics & Sports Medicine [address] [place] [address] aDvid Patel DO [address] [place] [address] Orthopedics & Sports Medicine, [facility]. [place], [place] [id number] 10/29/2025 8:00 AM EDT Office Visit [facility] Rheumatology [address] [place] [address] Anay Bliss MD [address] [place] [address], [address] [place] [address] [email or web address] Scheduled Procedures Name Priority Associated [...] sequela documented in this encounter Care Teams Waste Water Worker Relationship Specialty Start Date End Date Demetrio Gonzales MD [address] [place] [address] PCP - General 06/10/17 11/26/24 Lucius Hannon MD [address] [place] [address] PCP - General Internal Medicine 11/27/24 See Wan MD [address] [place] [address] Historical LMR Provider 06/09/17 Anay Bliss MD [address] [place] [address], [address] [place] [address] Historical LMR Provider 06/09/17 Tammi Corral PA-C 4 [facility] Orthopedics & Sports [facility], [place] [address] Historical LMR Provider 06/09/17 08/30/21 David Patel DO 4 [facility] Orthopedics Sports [facility], [place] [address] Historical LMR Provider 06/09/17 Demetrio Gonzales MD [address] [place] [address] [place] [address] Historical LMR Provider 06/09/17 2 Linette Echeverria PA-C [address] [place] [address] Orthopedics & Sports [facility], [place] [address] Historical LMR Provider 06/09/17 08/30/21 Cirilo Bernard MD [address] [place] [address] 102 [place] [address] Historical LMR Provider 06/09/17 08/30/21 Akil Jenkins MD [address] [place] [address] Historical LMR Provider 06/09/17 2 documented as of this encounter Additional Source Comments The information contained in this document represents components of the legal health record. It is not the complete legal health record.[facility]
--- OUTSIDE RECORDS SUMMARY | 2025-05-15 09:34 | XMS_ITS | Encounter Summary ---
Author Organization [facility] Address [address] [place] [address] Phone Care Team Providers Care Bonding Agent Name Role Phone See Wan MD Unavailable [phone] Anay Bliss MD Unavailable Tammi Corral PA-C Unavailable [phone] David Patel DO Unavailable [phone] Demetrio Gonzales MD Unavailable Linette Echeverria PA-C Unavailable [phone] Cirilo Bernard MD Unavailable Akil Jenkins MD Unavailable [phone] Demetrio Gonzales MD Primary Care Provider Lucius Hannon MD Primary Care Provid er Encounter Details Date Type Department Care Team (Latest Contact Info) Description 10/23/2019 Transcribe Orders Virtual Department [address] [place], [place] [phone] Tee Oneal MD [address] [place] [address], [address] [place], [place] [phone] [email or web address] White matter disease (Primary Dx) Social [...] Description 06/20/2025 8:00 AM EDT Office Visit [facility] Orthopedics & Sports Medicine [address] [place] [address] Cameron Hayward PA-C [address] [place] [address] [place] [address] [email or web address] 07/16/2025 Procedure Pass OR Admitting Dept - Virtual Department [address] [place] [address] 07/16/2025 7:30 AM EST Hospital Encounter OR Admitting Dept - Virtual Department [address] [place] [address] David Patel DO 4 [facility] Orthopedics & Sports [facility], [place] [address] 07/16/2025 7:30 AM EST - 07/16/2025 9:55 AM EST Surgery OR Admitting Dept - Virtual Department [address] [place] [address] David Patel DO 4 [facility] Orthopedics Sports [facility], [place] [address] ARTHROPLASTY ANATOMIC INVERSE SHOULDER 08/01/2025 8:00 AM EST Office Visit [facility] Orthopedics & Sports Medicine [address] [place] [address] Cameron Hayward PA-C [address] [place] [address] [place] [address] [email or web address] 08/29/2025 9:00 AM EST Office Visit [facility] Orthopedics & Sports Medicine [address] [place] [address] David Patel DO 4 [facility] Orthopedics & Sports Medicine, [facility] [place] [address] 10/29/2025 8:00 AM EDT Office Visit [facility] Rheumatology [address] [place] [address] [place] [address] Anay Bliss MD [address] [place] [address], [address] [place] [address] [email or web address] Scheduled Procedures Name Priority Associated Diagnoses Date/Ti me ARTHROPLASTY ANATOMIC INVERSE SHOULDER Instability of prosthetic shoulder joint, sequela 07/16/2025 7:30 AM EST documented as of this encounter Visit Diagnoses Diagnosis White matter disease- Primary Instability of prosthetic shoulder joint, sequela documented in this encounter Care Teams Bonding Agent Relationship Specialty Start Date End Date Demetrio Gonzales MD [address] [place] [address] PCP - General 06/10/17 11/26/24 Lucius Hannon MD [address] [place] [address] PCP - General Internal Medicine 11/27/24 See Wan MD [address] [place] [address] [email or web address] Historical LMR Provider 06/09/17 Anay Bliss MD [address] [place] [address] 203 [place] [address] [email or web address] Historical LMR Provider 06/09/17 Tammi Corral PA-C [address] [place] [address] Orthopedics Sports [facility], [place] [address] Historical LMR Provider 06/09/17 08/30/21 David Patel DO [address] [place] [address] [place] [address] [email or web address] Historical LMR Provider 06/09/17 Demetrio Gonzales MD [address] [place] [address] [place] [address] Historical LMR Provider 06/09/17 2 Linette Echeverria PA-C [address] [place] [address] Orthopedics Sports [facility], [place] [address] Historical LMR Provider 06/09/17 08/30/21 Cirilo Bernard MD [address] [place] [address] 102 [place] [address] Historical LMR Provider 06/09/17 08/30/21 Akil Jenkins MD [address] [place] [address] Historical LMR Provider 06/09/17 2 documented as of this encounter Additional Source Comments The information contained in this document represents components of the legal health record. It is not the complete legal health record.[facility]
--- OUTSIDE RECORDS SUMMARY | 2025-05-15 09:34 | XMS_ITS | Encounter Summary ---
Author Organization [facility] Address [address] [place] [address] Phone Care Team Providers Care Snow Removing Supervisor Name Role Phone See Wan MD Unavailable [phone] Anay Bliss MD Unavailable Tammi Corral PA-C Unavailable [phone] David Patel DO Unavailable [phone] Demetrio Gonzales MD Unavailable Linette Echeverria PA-C Unavailable Cirilo Bernard MD Unavailable Akil Jenkins MD Unavailable [phone] Demetrio Gonzales MD Primary Care Provider Lucius Hannon MD Primary Care Provid er Reason for Referral * Outpatient Procedure - Closed Specialty Diagnoses / Procedures Referred By Edmond t Referred To Contact Radiology Diagnoses 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, initial encounter Left knee pain, unspecified chronicity Procedures NM Bone Flow 3 Phase Marah Pickens NP Phone: tel: fax: [email or web address] Referral ID Status Reason Start Date Expiration Date Visits Re quested Visits Authorized [id number] Closed 07/22/2018 07/22/2019 1 1 Encounter Details Date Type Department Care Team (Latest Contact Info) Description 07/22/2018 Ancillary Orders Virtual Department [address] [place] [address] Marah Pickens NP [address] [place] [address] [email or web address] Other mechanical complication of internal left knee [...] Description 06/20/2025 8:00 AM EDT Office Visit [facility] Orthopedics & Sports Medicine [address] [place] [address] Cameron Hayward PA-C [address] [place] [address] [place] [address] [email or web address] 07/16/2025 Procedure Pass OR Admitting Dept - Virtual Department [address] [place] [address] 07/16/2025 7:30 AM EST Hospital Encounter OR Admitting Dept - Virtual Department [address] [place] [address] David Patel DO [address] [place] [address] Orthopedics & Sports Medicine, [facility] [place] [address] 07/16/2025 7:30 AM EST - 07/16/2025 9:55 AM EST Surgery OR Admitting Dept - Virtual Department [address] [place] [address] David Patel DO [address] [place] [address] Orthoped[facility] [place] [address] ARTHROPLASTY ANATOMIC INVERSE SHOULDER 08/01/2025 8:00 AM EST Office Visit [facility] Orthopedics & Sports Medicine [address] [place] [address] Cameron Hayward PA-C [address] [place] [address] [place] [address] [email or web address] 08/29/2025 9:00 AM EST Office Visit [facility] Orthopedics & Sports Medicine [address] [place] [address] David Patel DO [address] [place] [address] Orthopedics & Sports Medicine, 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, initial encounter Left knee pain, unspecified chronicity 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, initial encounter Left knee pain, unspecified chronicity Instability of prosthetic shoulder joint, sequela documented in this encounter Care Teams Snow Removing Supervisor Relationship Specialty Start Date End Date Demetrio Gonzales MD [address] [place] [address] PCP - General 06/10/17 11/26/24 Lucius Hannon MD [address] [place] [address] PCP - General Internal Medicine 11/27/24 See Wan MD [address] [place] [address] [email or web address] Historical LMR Provider 06/09/17 Anay Bliss MD [address] [place] [address], [address] [place] [address] Historical LMR Provider 06/09/17 Tammi Corral PA-C [address] [place] [address] Orthopedics & Sports [facility], [place] [address] Historical LMR Provider 06/09/17 08/30/21 David Patel DO [address] [place] [address] Orthopedics & Sports [facility], [place] [address] Historical LMR Provider 06/09/17 Demetrio Gonzales MD [address] [place] [address] [place] [address] Historical LMR Provider 06/09/17 2 Linette Echeverria PA-C [address] [place] [address] Orthopedics & Sports Medicine, [place] [address] Historical LMR Provider 06/09/17 08/30/21 Cirilo Bernard MD [address] [place] [address] Historical LMR Provider 06/09/17 08/30/21 Akil Jenkins MD [address] [place] [address] Historical LMR Provider 06/09/17 2 documented as of this encounter Additional Source Comments The information contained in this document represents components of the legal health record. It is not the complete legal health record.[facility]
--- OUTSIDE RECORDS SUMMARY | 2025-05-15 09:35 | XMS_ITS | Encounter Summary ---
Author Organization [facility] Address [address] [place] [address] Phone Care Team Providers Care Hide Paster Name Role Phone See Wan MD Unavailable [phone] Anay Bliss MD Unavailable Tammi CorralC Unavailable [phone] David Patel DO Unavailable Demetrio Gonzales MD Unavailable Linette Echeverria-C Unavailable [phone] Cirilo Bernard MD Unavailable [phone] Akil Jenkins MD Unavailable [phone] Demetrio Gonzales MD Primary Care Provider Lucius Hannon MD Primary Care Provid er Encounter Details Date Type Department Care Team (Late st Contact Info) Description 05/20/2020 Ancillary Orders Virtual Department [address] [place] [address] Tahmina Power PA [address] [place] [address] [email or web address] Social History Tobacco Use [facility] [address] [place] [address] Cameron Hayawrd PA-C [address] [place] [address] [place] [address] [email or web address] 07/16/2025 Procedure Pass OR Admitting Dept - Virtual Department [address] [place] [address] 07/16/2025 7:30 AM EST Hospital Encounter OR Admitting Dept - Virtual Department [address] [place] [address] David Patel DO [address] [place] [address] Orthopedics & Sports Medicine, [facility] [place] [address] 07/16/2025 7:30 AM EST - 07/16/2025 9:55 AM EST Surgery OR Admitting Dept - Virtual Department [address] [place] [address] David Patel DO [address] [place] [address] [facility] [place] [address] ARTHROPLASTY ANATOMIC INVERSE SHOULDER 08/01/2025 8:00 AM EST Office Visit [facility] Orthopedics & Sports Medicine [address] [place] [address] Cameron [place] PA-C [address] [place] [address] [place] [address] [email or web address] 08/29/2025 9:00 AM EST Office Visit [facility] Orthopedics & Sports Medicine [address] [place] [address] David Patel DO [address] [place] [address] Orthopedics & Sports Medicine, [facility] [place] [address] 10/29/2025 8:00 AM EDT Office Visit [facility] Rheumatology [address] [place] [address] Anay Bliss MD [address] [place] [address], [address] [place] [address] [email or web address] Scheduled Procedures Name Priority Associated [...] sequela documented in this encounter Care Teams Hide Paster Relationship Specialty Start Date End Date Demetrio Gonzales MD [address] [place] [address] PCP - General 06/10/17 11/26/24 Lucius Hannon MD [address] [place] [address] PCP - General Internal Medicine 11/27/24 See Wan MD [address] [place] [address] Historical LMR Provider 06/09/17 Anay Bliss MD [address] [place] [address], [facility] [address] [place] [address] [email or web address] Historical LMR Provider 06/09/17 Tammi Corral PA-C [address] [place] [address] [facility] [place] [address] Historical LMR Provider 06/09/17 08/30/21 David Patel DO [facility] Orthopedics Sports [facility], [place] [address] Historical LMR Provider 06/09/17 Demetrio Gonzales MD [address] [place] [address] [place] [address] Historical LMR Provider 06/09/17 2 Linette Echeverria PA-C [address] [place] [address] Orthopedics & Sports [facility], [place] [address] Historical LMR Provider 06/09/17 08/30/21 Cirilo Bernard MD [address] [place] [address] Historical LMR Provider 06/09/17 08/30/21 Akil Jenkins MD [address] [place] [address] Historical LMR Provider 06/09/17 2 documented as of this encounter Additional Source Comments The information contained in this document represents components of the legal health record. It is not the complete legal health record.[facility]
--- OUTSIDE RECORDS SUMMARY | 2025-05-15 09:35 | XMS_ITS | Encounter Summary ---
Author Organization [facility] Address [address] [place] [address] Phone Care Team Providers Care Railroad Track Inspector Name Role Phone See Wan MD Unavailable [phone] Anay Bliss MD Unavailable [phone] Tammi Corral PA-C Unavailable [phone] David Patel DO Unavailable [phone] Demterio Gonzales MD Unavailable Linette Echeverria PA-C Unavailable [phone] Cirilo Bernard MD Unavailable Akil Jenkins MD Unavailable [phone] Demetrio Gonzales MD Primary Care Provider Lucius Hannon MD Primary Care Provid er Encounter Details Date Type Department Care Team (Late st Contact Info) Description 12/27/2017 Procedure Pass OR Admitting Dept - Virtual Department 30 [place], [place] [phone] Social History Tobacco Use Types Packs/Day Years [...] Visit [facility] Orthopedics & Sports Medicine [address] [place] [address] Cameron [place] PA-C [address] [place] [address] [place] [address] [email or web address] 07/16/2025 Procedure Pass OR Admitting Dept - Virtual Department [address] [place] [address] 07/16/2025 7:30 AM EST Hospital Encounter OR Admitting Dept - Virtual Department [address] [place] [address] David Patel DO [address] [place] [address] Orthopedics & Sports [facility], [place] [address] 07/16/2025 7:30 AM EST - 07/16/2025 9:55 AM EST Surgery OR Admitting Dept - Virtual Department [address] [place] [address] David Patel DO [address] [place] [address] Orthopedics & Sports [facility], [place] [address] ARTHROPLASTY ANATOMIC INVERSE SHOULDER 08/01/2025 8:00 AM EST Office Visit [facility] Orthopedics & Sports Medicine [address] [place] [address] Cameron [place] PA-C [address] [place] [address] [place] [address] [email or web address] 08/29/2025 9:00 AM EST Office Visit [facility] Orthopedics & Sports Medicine [address] [place] [address] David Patel DO [address] [place] [address] Orthopedics & Sports Medicine, [facility] [place] [address] 10/29/2025 8:00 AM EDT Office Visit [facility] Rheumatology [address] [place] [address] [place] [address] Anay Bliss MD [address] [place] [address], [address] [address] [email or web address] Scheduled Procedures Name Priority Associated Diagnoses Date/Ti me ARTHROPLASTY ANATOMIC INVERSE SHOULDER Instability of prosthetic shoulder joint, sequela 07/16/2025 7:30 AM EST documented as of this encounter Visit Diagnoses Not on filedocumented in this encounter Care Teams Railroad Track Inspector Relationship Specialty Start Date End Date Demetrio Gonzales MD [address] [place] [address] PCP - General 06/10/17 11/26/24 Lucius Hannon MD [address] [place] [address] PCP - General Internal Medicine 11/27/24 See Wan MD [address] [place] [address] [email or web address] Historical LMR Provider 06/09/17 Anay Bliss MD [address] [place] [address], [address] [address] Historical LMR Provider 06/09/17 Tammi Corral PA-C 4 [facility] Orthopedics & Sports [facility], [place] [address] Historical LMR Provider 06/09/17 08/30/21 David Patel DO 4 [facility] Orthopedics & Sports [facility], [place] [address] Historical LMR Provider 06/09/17 Demetrio Gonzales MD [address] [place] [address] [place] [address] Historical LMR Provider 06/09/17 2 Linette Echeverria PA-C [address] [place] [address] Orthopedics & Sports [facility], [place] [address] Historical LMR Provider 06/09/17 08/30/21 Cirilo Bernard MD [address] [place] [address] Historical LMR Provider 06/09/17 08/30/21 Akil Jenkins MD [address] [place] [address] Historical LMR Provider 06/09/17 2 documented as of this encounter Additional Source Comments The information contained in this document represents components of the legal health record. It is not the complete legal health record.[facility]
--- OUTSIDE RECORDS SUMMARY | 2025-05-15 09:35 | XMS_ITS | Encounter Summary ---
Author Organization [facility] Address [address] [place] [address] [place] [address] Phone Care Team Providers Care Manager Regional Sales Name Role Phone See Wan MD Unavailable [phone] Anay Bliss MD Unavailable [phone] David Patel DO Unavailable [phone] Demetrio Gonzales MD Primary Care Provider Lucius Hannon MD Primary Care Provid er Encounter Details Date Type Department Care Team (Late st Contact Info) Description 02/05/2023 Procedure Pass [facility], Ct Scan - [address] [id number] Social History Tobacco Use Types Packs/Day Years [...] 10:22 PM EDT Prashant Gutiérrez, SHABANA * [place] Suicide Severity Rating Scale (Screener/Recent Self-Report) Question [...] Description 06/20/2025 8:00 AM EDT Office Visit [facility] Orthopedics & Sports Medicine [address] [place] [address] Cameron [place] PA-C [address] [place] [address] [place] [address] [email or web address] 07/16/2025 Procedure Pass OR Admitting Dept - Virtual Department [address] [place] [address] 07/16/2025 7:30 AM EST Hospital Encounter OR Admitting Dept - Virtual Department [address] [place] [address] David Patel DO [address] [place] [address] Orthopedics & Sports Medicine, [facility] [place] [address] 07/16/2025 7:30 AM EST - 07/16/2025 9:55 AM EST Surgery OR Admitting Dept - Virtual Department [address] [place] [address] David Patel DO [address] [place] [address] [facility] [place] [address] ARTHROPLASTY ANATOMIC INVERSE SHOULDER 08/01/2025 8:00 AM EST Office Visit [facility] Orthopedics & Sports Medicine [address] [place] [address] Cameron [place] PA-C [address] [place] [address] [place] [address] [email or web address] 08/29/2025 9:00 AM EST Office Visit [facility] Orthopedics & Sports Medicine [address] [place] [address] David Patel DO [address] [place] [address] Orthopedics & Sports [facility], [place] [address] 10/29/2025 8:00 AM EDT Office Visit [facility] Rheumatology 22 [place] [address] Anay Bliss MD [address] [facility], [address] [place] [address] [email or web address] Scheduled Procedures Name Priority Associated Diagnoses Date/Ti me ARTHROPLASTY ANATOMIC INVERSE SHOULDER Instability of prosthetic shoulder joint, sequela 07/16/2025 7:30 AM EST documented as of this encounter Visit Diagnoses Not on filedocumented in this encounter Care Teams Manager Regional Sales Relationship Specialty Start Date End Date Demetrio Gonzales MD [address] [place], [place] [address] [place] [address] PCP - General 06/10/17 11/26/24 Lucius Hannon MD [address] [place] [address] [place] [address] PCP - General Internal Medicine 11/27/24 See Wan MD [address] [place] [address] [email or web address] Historical LMR Provider 06/09/17 Anay Bliss MD [address] [place] [address] 203 [place] [address] [email or web address] Historical LMR Provider 06/09/17 David Patel DO [address] [place] [address] Orthopedics & Sports Medicine, [place] [address] Historical LMR Provider 06/09/17 documented as of this encounter Additional Source Comments The information contained in this document represents components of the legal health record. It is not the complete legal health record.[facility]
--- OUTSIDE RECORDS SUMMARY | 2025-05-15 09:35 | XMS_ITS | Encounter Summary ---
Author Organization [facility] Address [address] [place] [address] Phone Care Team Providers Care Drafter Patent Name Role Phone See Wan MD Unavailable Anay Bliss MD Unavailable [phone] Tammi Corral PA-C Unavailable David Patel DO Unavailable [phone] Demetrio Gonzales MD Unavailable Linette Echeverria PA-C Unavailable Cirilo Bernard MD Unavailable Akil Jenkins MD Unavailable [phone] Demetrio Gonzales MD Primary Care Provider Lucius Hannon MD Primary Care Provid er Encounter Details Date Type Department Care Team (Late st Contact Info) Description 01/07/2018 Ancillary Orders [facility] Orthopedics & Sports Medicine [address] [place] [address] [phone] Linette Echeverria PA-C [address] [place] [address] Orthopedics & Sports Medicine, [facility]. [place], [place] [phone] Social History Tobacco Use Types Packs/Day Years [...] AM EDT Office Visit [facility] Orthopedics & Sports Medicine [address] [place] [address] Cameron [place] PA-C [address] [place] [address] [place] [address] [email or web address] 07/16/2025 Procedure Pass OR Admitting Dept - Virtual Department [address] [place] [address] 07/16/2025 7:30 AM EST Hospital Encounter OR Admitting Dept - Virtual Department [address] [place] [address] David Patel DO [address] [place] [address] Orthopedics & Sports [facility], [place] [address] 07/16/2025 7:30 AM EST - 07/16/2025 9:55 AM EST Surgery OR Admitting Dept - Virtual Department [address] [place] [address] David Patel DO [address] [place] [address] Orthopedics & Sports [facility] [address] ARTHROPLASTY ANATOMIC INVERSE SHOULDER 08/01/2025 8:00 AM EST Office Visit [facility] Orthopedics & Sports Medicine [address] [place] [address] Cameron Hayward PA-C [address] [place] [address] [place] [address] [email or web address] 08/29/2025 9:00 AM EST Office Visit [facility] Orthopedics & Sports Medicine [address] [place] [address] David Patel DO [address] [place] [address] Orthopedics & Sports Medicine, [facility] [place] [address] 10/29/2025 8:00 AM EDT Office Visit [facility] Rheumatology [address] [place] [address] [place] [address] Anay Bliss MD [address] [place] [address], [address] [place] [address] [email or web address] Scheduled Procedures Name Priority Associated Diagnoses Date/Ti me ARTHROPLASTY ANATOMIC INVERSE SHOULDER Instability of prosthetic shoulder joint, sequela 07/16/2025 7:30 AM EST documented as of this encounter Visit Diagnoses Not on filedocumented in this encounter Care Teams Drafter Patent Relationship Specialty Start Date End Date Demetrio Gonzales MD [address] [place] [address] PCP - General 06/10/17 11/26/24 Lucius Hannon MD [address] [place] [address] PCP - General Internal Medicine 11/27/24 See Wan MD [address] [place] [address] [email or web address] Historical LMR Provider 06/09/17 Anay Bliss MD [address] [place] [address], [facility] [address] [place] [address] [email or web address] Historical LMR Provider 06/09/17 Tammi Corral PA-C [address] [place] [address] Orthopedics Sports [facility], [place] [address] Historical LMR Provider 06/09/17 08/30/21 David Patel DO [address] [place] [address] [place] [address] [email or web address] Historical LMR Provider 06/09/17 Demetrio Gonzales MD [address] [place] [address] [place] [address] Historical LMR Provider 06/09/17 2 Linette Echeverria PA-C [address] [place] [address] Orthopedics Sports [facility], [place] [address] [email or web address] Historical LMR Provider 06/09/17 08/30/21 Cirilo Bernard MD [address] [place] [address], [facility] [address] [place] [address] Historical LMR Provider 06/09/17 08/30/21 Akil Jenkins MD [address] [place] [address] Historical LMR Provider 06/09/17 2 documented as of this encounter Additional Source Comments The information contained in this document represents components of the legal health record. It is not the complete legal health record.[facility]
--- OUTSIDE RECORDS SUMMARY | 2025-05-15 09:35 | XMS_ITS | Encounter Summary ---
Author Organization [facility] Address [address] [place] [address] Phone Care Team Providers Care Sensory Scientist Name Role Phone See Wan MD Unavailable [phone] Anay Bliss MD Unavailable [phone] Tammi Corral PA-C Unavailable [phone] David Patel DO Unavailable [phone] Demetrio Gonzales MD Unavailable Linette Echeverria PA-C Unavailable Cirilo Bernard MD Unavailable [phone] Akil Jenkins MD Unavailable [phone] Demetrio Gonzales MD Primary Care Provider Lucius Hannon MD Primary Care Provid er Encounter Details Date Type Department Care Team (Latest Contact Info) Description 07/20/2018 Ancillary Orders Virtual Department 30 [place] [address] Dony Aguero MD [address] [address] Left knee pain, unspecified chronicity; Other mechanical [...] Description 06/20/2025 8:00 AM EDT Office Visit [facility] Orthopedics & Sports Medicine [address] [place] [address] Cameron [place] PA-C [address] [place] [address] [place] [address] [email or web address] 07/16/2025 Procedure Pass OR Admitting Dept - Virtual Department [address] [place] [address] 07/16/2025 7:30 AM EST Hospital Encounter OR Admitting Dept - Virtual Department [address] [place] [address] David Patel DO 4 [facility] Orthopedics & Sports [facility], [place] [address] 07/16/2025 7:30 AM EST - 07/16/2025 9:55 AM EST Surgery OR Admitting Dept - Virtual Department [address] [place] [address] David Patel DO 4 [facility] Orthopedics Sports [facility], [place] [address] ARTHROPLASTY ANATOMIC INVERSE SHOULDER 08/01/2025 8:00 AM EST Office Visit [facility] Orthopedics & Sports Medicine [address] [place] [address] Cameron [place] PA-C [address] [place] [address] [place] [address] [email or web address] 08/29/2025 9:00 AM EST Office Visit [facility] Orthopedics & Sports Medicine [address] [place] [address] David Patel DO [address] [place] [address] Orthopedics & Sports Medicine, [place] [address] 10/29/2025 8:00 AM EDT Office Visit [facility] Rheumatology [address] [place] [address] [place] [address] Anay Bliss MD [address] [place] [address], [address] [place] [address] [email or web address] Scheduled Procedures Name Priority Associated Diagnoses Date/Ti me ARTHROPLASTY ANATOMIC INVERSE SHOULDER Instability of prosthetic shoulder joint, sequela 07/16/2025 7:30 AM EST documented as of this encounter Visit Diagnoses Diagnosis Left knee pain, unspecified chronicity 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, 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, sequela documented in this encounter Care Teams Sensory Scientist Relationship Specialty Start Date End Date Demetrio Gonzales MD [address] [place] [address] PCP - General 06/10/17 11/26/24 Lucius Hannon MD [address] [place] [address] PCP - General Internal Medicine 11/27/24 See Wan MD [address] [place] [address] [email or web address] Historical LMR Provider 06/09/17 Anay Bliss MD 22 [facility] 203 [place] [address] Historical LMR Provider 06/09/17 Tammi Corral PA-C [address] [place] [address] [place] [address] Historical LMR Provider 06/09/17 08/30/21 David Patel DO [address] [place] [address] [facility] [place] [address] [email or web address] Historical LMR Provider 06/09/17 Demetrio Gonzales MD [address] [place] [address] [place] [address] Historical LMR Provider 06/09/17 Linette Patel PA-C [address] [place] [address] [facility] [place] [address] Historical LMR Provider 06/09/17 08/30/21 Cirilo Bernard MD [address] [place] [address], [address] [place] [address] Historical LMR Provider 06/09/17 08/30/21 Akil [place] MD [address] [place] [address] Historical LMR Provider 06/09/17 2 documented as of this encounter Additional Source Comments The information contained in this document represents components of the legal health record. It is not the complete legal health record.[facility]
--- OUTSIDE RECORDS SUMMARY | 2025-05-15 09:35 | XMS_ITS | Encounter Summary ---
Author Organization [facility] Address [address] [place] [address] Phone Care Team Providers Care Mechanical Pencils Assembler Name Role Phone See Wan MD Unavailable [phone] Anay Bliss MD Unavailable [phone] Tammi Corral PA-C Unavailable [phone] David Patel DO Unavailable [phone] Demetrio Gonzales MD Unavailable Linette Echeverria PA-C Unavailable Cirilo Bernard MD Unavailable [phone] Akil Jenkins MD Unavailable [phone] Demetrio Gonzales MD Primary Care Provider Lucius Hannon MD Primary Care Provid er Encounter Details Date Type Department Care Team (Late st Contact Info) Description 04/12/2018 Procedure Pass [facility], [address] [address] Social History Tobacco Use Types Packs/Day Years [...] Description 06/20/2025 8:00 AM EDT Office Visit [facility] Orthopedics & Sports Medicine [address] [place] [address] Cameron Hayward PA-C [address] [place] [address] [place] [address] [email or web address] 07/16/2025 Procedure Pass OR Admitting Dept - Virtual Department [address] [place] [address] 07/16/2025 7:30 AM EST Hospital Encounter OR Admitting Dept - Virtual Department [address] [place] [address] David Patel, [address] [place] [address] Orthopedics & Sports [facility] [place] [address] 07/16/2025 7:30 AM EST - 07/16/2025 9:55 AM EST Surgery OR Admitting Dept - Virtual Department [address] [place] [address] David Patel DO [address] [place] [address] Orthopedics & Sports [facility] [place] [address] ARTHROPLASTY ANATOMIC INVERSE SHOULDER 08/01/2025 8:00 AM EST Office Visit [facility] Orthopedics & Sports Medicine [address] [place] [address] Cameron Hayward PA-C [address] [place] [address] [place] [address] [email or web address] 08/29/2025 9:00 AM EST Office Visit [facility] Orthopedics & Sports Medicine [address] [place] [address] David Patel DO [address] [place] [address] Orthopedics & Sports Medicine, [place] [address] 10/29/2025 8:00 AM EDT Office Visit [facility] Rheumatology [address] [place] [address] [place] [address] Anay Bliss MD [address] [place] [address], [address] [place] [address] [email or web address] Scheduled Procedures Name Priority Associated Diagnoses Date/Ti me ARTHROPLASTY ANATOMIC INVERSE SHOULDER Instability of prosthetic shoulder joint, sequela 07/16/2025 7:30 AM EST documented as of this encounter Visit Diagnoses Not on filedocumented in this encounter Care Teams Mechanical Pencils Assembler Relationship Specialty Start Date End Date Demetrio Gonzales MD [address] [place] [address] PCP - General 06/10/17 11/26/24 Lucius Hannon MD [address] [place] [address] PCP - General Internal Medicine 11/27/24 See Wan MD [address] [place] [address] [id number] [email or web address] Historical LMR Provider 06/09/17 Anay Bliss MD 22 [facility] 203 [place] [address] Historical LMR Provider 06/09/17 Tammi Corral PA-C [address] [place] [address] Orthopedics & Sports [facility], [place] [address] Historical LMR Provider 06/09/17 08/30/21 David Patel DO [address] [place] [address] Orthopedics Sports [facility], [place] [address] Historical LMR Provider 06/09/17 Demetrio Gonzales MD [address] [place] [address] [place] [address] Historical LMR Provider 06/09/17 2 Linette Echeverria PA-C [address] [place] [address] Orthopedics Sports [facility], [place] [address] Historical LMR Provider 06/09/17 08/30/21 Cirilo Bernard MD [address] [place] [address], [address] [place] [address] Historical LMR Provider 06/09/17 08/30/21 Akil Jenkins MD [address] [place] [address] Historical LMR Provider 06/09/17 2 documented as of this encounter Additional Source Comments The information contained in this document represents components of the legal health record. It is not the complete legal health record.[facility]
--- OUTSIDE RECORDS SUMMARY | 2025-05-15 09:35 | XMS_ITS | Encounter Summary ---
Author Organization [facility] Address [address] [place] [address] Phone Care Team Providers Care Wheat Cleaner Name Role Phone See Wan MD Unavailable Anay Bliss MD Unavailable David Patel DO Unavailable Demetrio Gonzales MD Primary Care Provider Lucius Hannon MD Primary Care Provid er Encounter Details Date Type Department Care Team (Late st Contact Info) Description 09/10/2022 Ancillary Orders [facility] [place], X-Ray - [facility] [address] [place] [address] Yusuf Olmos, DO [address] [place] [address] [email or web address] Gluteal tendinitis, left hip Social History Tobacco [...] Description 06/20/2025 8:00 AM EDT Office Visit [facility] Orthopedics & Sports Medicine [address] [place] [address] Cameron Hayward PA-C [address] [place] [address] [place] [address] [email or web address] 07/16/2025 Procedure Pass OR Admitting Dept - Virtual Department [address] [place] [address] 07/16/2025 7:30 AM EST Hospital Encounter OR Admitting Dept - Virtual Department [address] [place] [address] David Patel DO [address] [place], [place] [address]s Sports [facility] [place], [place] [address] 07/16/2025 7:30 AM EST - 07/16/2025 9:55 AM EST Surgery OR Admitting Dept - Virtual Department [address] [place] [address] David Patel DO 4 [facility] Orthopedics & Sports [facility] [place], [facility] [place] [address] ARTHROPLASTY ANATOMIC INVERSE SHOULDER 08/01/2025 8:00 AM EST Office Visit [facility] Orthopedics & Sports Medicine [address] [place] [address] Cameron Hayward PA-C [address] [place] [address] [place] [address] [email or web address] 08/29/2025 9:00 AM EST Office Visit [facility] Orthopedics & Sports Medicine [address] [place] [address] David Patel DO 4 [facility] Orthopedics & Sports [place] [place] [address] 10/29/2025 8:00 AM EDT Office Visit [facility] Rheumatology [address] [place] [address] Anay Bliss MD 22 [facility], [address] [place] [address] [email or web address] Scheduled Procedures Name Priority Associated [...] sequela documented in this encounter Care Teams Wheat Cleaner Relationship Specialty Start Date End Date Demetrio Gonzales MD [address] [place] [address] PCP - General 06/10/17 11/26/24 Lucius Hannon MD [address] [place] [address] PCP - General Internal Medicine 11/27/24 See Wan MD [address] [place] [address] Historical LMR Provider 06/09/17 Anay Bliss MD [address] [place] [address], [address] [place] [address] Historical LMR Provider 06/09/17 David Patel DO [address] [place] [address] Orthopedics & Sports Medicine, [place] [address] [email or web address] Historical LMR Provider 06/09/17 documented as of this encounter Additional Source Comments The information contained in this document represents components of the legal health record. It is not the complete legal health record.[facility]
--- OUTSIDE RECORDS SUMMARY | 2025-05-15 09:35 | XMS_ITS | Encounter Summary ---
Author Organization [facility] Address [address] [place] [address] Phone Care Team Providers Care Digital Cartographer Name Role Phone See Wan MD Unavailable [phone] Anay Bliss MD Unavailable [phone] Tammi Corral PA-C Unavailable [phone] David Patel DO Unavailable [phone] Demetrio oGnzales MD Unavailable Linette Echeverria PA-C Unavailable Cirilo Bernard MD Unavailable [phone] Akil Jenkins MD Unavailable [phone] Demetrio Gonzales MD Primary Care Provider Lucius Hannon MD Primary Care Provid er Encounter Details Date Type Department Care Team (Latest Contact Info) Description 09/27/2019 Transcribe Orders [facility] [address] [place] [address] [phone] Tee Oneal MD [address] [place] [address], [address] [place] [address] [email or web address] Nonintractable headache, unspecified chronicity pattern, unspecified [...] Description 06/20/2025 8:00 AM EDT Office Visit [facility] Orthopedics & Sports Medicine [address] [place] [address] Cameron Hayward PA-C [address] [place] [address] [place] [address] [email or web address] 07/16/2025 Procedure Pass OR Admitting Dept - Virtual Department [address] [place] [address] 07/16/2025 7:30 AM EST Hospital Encounter OR Admitting Dept - Virtual Department [address] [place] [address] David Patel DO [address] [place] [address] Orthopedics & Sports [facility] [address] 07/16/2025 7:30 AM EST - 07/16/2025 9:55 AM EST Surgery OR Admitting Dept - Virtual Department [address] [place] [address] David Patel DO [address] [place] [address] Orthopedics & Sports [facility], [place] [address] ARTHROPLASTY ANATOMIC INVERSE SHOULDER 08/01/2025 8:00 AM EST Office Visit [facility] Orthopedics & Sports Medicine [address] [place] [address] Cameron Hayward PA-C [address] [place] [address] [place] [address] [email or web address] 08/29/2025 9:00 AM EST Office Visit [facility] Orth[facility]ics & [facility] Medicine [address] [place] [address] David Patel DO [address] [place] [address] Orthopedics & Sports Medicine, [place] [address] 10/29/2025 8:00 AM EDT Office Visit [facility] Rheumatology [address] [place] [address] Anay Bliss MD 22 [facility], [address] [place] [address] [email or web address] Scheduled Procedures Name Priority Associated Diagnoses Date/Ti me ARTHROPLASTY ANATOMIC INVERSE SHOULDER Instability of prosthetic shoulder joint, sequela 07/16/2025 7:30 AM EST documented as of this encounter Results * CBC (09/27/2019 10:43 AM EST) WBC 5.38 4.00 - 11.00 K/uL [facility] Comment:Note Reference Range updates to all CBC and Differential results. RBC 4.54 3.72 - 5.30 M/uL [facility] HGB 14.3 11.4 - 15.9 g/dL [facility] Comment:Note updated Referen ce Ranges for all CBC and Differential results. HCT 41.7 34.2 - 46.8 % [facility] PLT 224 140 - 430 K/uL [facility] MCV 91.9 78.0 - 97.0 fL [facility] MCH 31.5 25.0 - 33.0 pg [facility] MCHC 34.3 32.0 - 36.0 g/dL [facility] RDW 13.2 11.0 - 16.0 % [facility] MPV 10.3 8.4 - 12.8 fl [facility] NRBC 0.00 0 /100 WBCs [facility] ABSOLUTE NRBC 0.00 0 K/uL [facility] Blood 09/27/2019 10:4 3 AM EST 09/27/2019 10:47 AM EST us Tee Oneal MD LAB BLOOD ORDERABLES Final R esult Performing Organization Address City/[facility] Co de Phone Number [address] [address] * LFTs (hepatic panel) (09/27/2019 10:43 AM EST) ALKALINE PHOSPHATASE 72 39 - 117 U/L [facility] TOTAL BILIRUBIN 0.3 0.0 - 1.2 mg/dL [facility] DIRECT BILIRUBIN <0.2 0 - 0.3 mg/dL [facility] Bilirubin (Indirect) NOT CALCULATED 0 - 1.5 mg/dL [facility] AST 32 0 - 37 U/L [facility] ALT 25 0 - 40 U/L [facility] TOTAL PROTEIN 7.3 6.5 - 8.0 g/dL [facility] ALBUMIN 4.5 3.9 - 4.8 g/dL [facility] GLOBULIN 2.8 1 - 4.8 g/dL [facility] A/G Ratio 1.61 1.00 - 4.80 RATIO [facility] Blood 09/27/2019 10:4 3 AM EST 09/27/2019 10:47 AM EST us Tee Oneal MD LAB BLOOD ORDERABLES Final R esult Performing Organization Address City/[facility]/ZIP Co de Phone Number [address] [address] documented in this encounter Visit Diagnoses Diagnosis Nonintractable headache, unspecified chronicity pattern, unspecified headache type- Primary Instability of prosthetic shoulder joint, sequela documented in this encounter Care Teams Digital Cartographer Relationship Specialty Start Date End Date Demetrio Gonzales MD [address] [place] [address] [place] [address] PCP - General 06/10/17 11/26/24 Lucius Hannon MD [address] [place] [address] PCP - General Internal Medicine 11/27/24 See Wan MD [address] [place] [address] [email or web address] Historical LMR Provider 06/09/17 Anay Bliss MD [address] [place] [address] 203 [place] [address] Historical LMR Provider 06/09/17 Tammi Corral PA-C [address] [place] [address] Orthopedics & Sports [facility] [place] [address] Historical LMR Provider 06/09/17 08/30/21 David Patel DO [address] [place] [address] Orthopedics Sports [facility], [place] [address] Historical LMR Provider 06/09/17 Demetrio Gonzales MD [address] [place] [address] [place] [address] Historical LMR Provider 06/09/17 2 Linette Echeverria PA-C [address] [place] [address] Orthopedics & Sports [facility], [place] [address] [email or web address] Historical LMR Provider 06/09/17 08/30/21 Cirilo Bernard MD [address] [place] [address] [email or web address] Historical LMR Provider 06/09/17 08/30/21 Akil Jenkins MD [address] [place] [address] Historical LMR Provider 06/09/17 2 documented as of this encounter Additional Source Comments The information contained in this document represents components of the legal health record. It is not the complete legal health record.[facility]
--- OUTSIDE RECORDS SUMMARY | 2025-05-15 09:35 | XMS_ITS | Encounter Summary ---
Author Organization [facility] Address [address] [place] [address] Phone Care Team Providers Care Web Design Intern Name Role Phone See Wan MD Unavailable [phone] Anay Bliss MD Unavailable Tammi Corral PA-C Unavailable [phone] David Patel DO Unavailable Demetrio Gonzales MD Unavailable Linette Echeverria PA-C Unavailable Cirilo Bernard MD Unavailable [phone] Akil Jenkins MD Unavailable [phone] Demetrio Gonzales MD Primary Care Provider Lucius Hannon MD Primary Care Provid er Encounter Details Date Type Department Care Team (Late st Contact Info) Description 01/07/2018 Ancillary Orders [address] [phone] Linette Echeverria PA-C [address] [place] [address] Orthopedics & Sports Medicine, [place], [place] [phone] [email or web address] Left shoulder pain, unspecified chronicity Social History [...] Description 06/20/2025 8:00 AM EDT Office Visit [facility] Orthopedics & Sports Medicine [address] [place] [address] Cameron Hayward PA-C [address] [place] [address] [place] [address] [email or web address] 07/16/2025 Procedure Pass OR Admitting Dept - Virtual Department [address] [place] [address] 07/16/2025 7:30 AM EST Hospital Encounter OR Admitting Dept - Virtual Department [address] [place] [address] David Patel DO [address] [place] [address] Orth[facility] [place] [address] 07/16/2025 7:30 AM EST - 07/16/2025 9:55 AM EST Surgery OR Admitting Dept - Virtual Department [address] [place] [address] David Patel DO [address] [place] [address] Orthopedics & Sports [facility], [place] [address] ARTHROPLASTY ANATOMIC INVERSE SHOULDER 08/01/2025 8:00 AM EST Office Visit [facility] Orthopedics & Sports Medicine [address] [place] [address] Cameron Hayward PA-C [address] [place] [address] [place] [address] [email or web address] 08/29/2025 9:00 AM EST Office Visit [facility] Orthopedics & Sports Medicine [address] [place] [address] David Patel DO [address] [place] [address] Orthopedics & Sports Medicine, [place] [address] 10/29/2025 8:00 AM EDT Office Visit [facility] Rheumatology [address] [place] [address] [place] [address] Anay Bliss MD 22 [facility], [address] [place] [address] [email or web address] Scheduled Procedures Name Priority Associated Diagnoses Date/Ti me ARTHROPLASTY ANATOMIC INVERSE SHOULDER Instability of prosthetic shoulder joint, sequela 07/16/2025 7:30 AM EST documented as of this encounter Results * XR SHOULDER 2 VIEWS (LEFT) (01/11/2018 10:42 AM EDT) Narrative Megan Marie Max - 01/11/2018 10:42 AM EDT This image [...] sequela documented in this encounter Care Teams Web Design Intern Relationship Specialty Start Date End Date Demetrio Gonzales MD [address] [place] [address] [place] [address] PCP - General 06/10/17 11/26/24 Lucius Hannon MD [address] [place] [address] PCP - General Internal Medicine 11/27/24 See Wan MD [address] [place] [address] [email or web address] Historical LMR Provider 06/09/17 Anay Bliss MD [address] [place] [address], [address] [place] [address] [email or web address] Historical LMR Provider 06/09/17 Tammi Corral PA-C [address] [place] [address] Orthopedics Sports [facility], [place] [address] Historical LMR Provider 06/09/17 08/30/21 David Patel DO [address] [place] [address] Orthopedics Sports [facility], [place] [address] Historical LMR Provider 06/09/17 Demetrio Gonzales MD [address] [place] [address] Historical LMR Provider 06/09/17 Linette Patel PA-C [address] [place] [address] Orthopedics Sports [facility], [place] [address] Historical LMR Provider 06/09/17 08/30/21 Cirilo Bernard MD [address] [place] [address] [email or web address] Historical LMR Provider 06/09/17 08/30/21 Akil Jenkins MD [address] [place] [address] Historical LMR Provider 06/09/17 2 documented as of this encounter Additional Source Comments The information contained in this document represents components of the legal health record. It is not the complete legal health record.[facility]
--- OUTSIDE RECORDS SUMMARY | 2025-05-15 09:35 | XMS_ITS | Encounter Summary ---
Author Organization [facility] Address [address] [place] [address] Phone Care Team Providers Care Food Editor Name Role Phone See Wan MD Unavailable Anay Bliss MD Unavailable [phone] Tammi Corral PA-C Unavailable [phone] David Patel DO Unavailable [phone] Demetrio Gonzales MD Unavailable Linette Echeverria PA-C Unavailable Cirilo Bernard MD Unavailable Akil Jenkins MD Unavailable [phone] Demetrio Gonzales MD Primary Care Provider Lucius Hannon MD Primary Care Provid er Reason for Referral * MRI/CAT Scan - Closed Specialty Diagnoses / Procedures Referred By Edmond t Referred To Contact Radiology Diagnoses White matter disease Dizziness Seizures Procedures MRI Brain Tee Oneal MD Phone: tel: fax: [email or web address] Referral ID Status Reason Start Date Expiration Date Visits Re quested Visits Authorized [id number] Closed 04/12/2018 07/11/2018 1 1 Encounter Details Date Type Department Care Team (Late st Contact Info) Description 04/12/2018 Ancillary Orders Virtual Department [address] [place] [address] Tee Oneal MD [address] [place] [address], [address] [place] [address] [email or web address] White matter disease; Dizziness; Seizures Social [...] Description 06/20/2025 8:00 AM EDT Office Visit [facility] Orthopedics & Sports Medicine [address] [place] [address] Cameron Haywadr PA-C [address] [place] [address] [place] [address] [email or web address] 07/16/2025 Procedure Pass OR Admitting Dept - Virtual Department [address] [place] [address] 07/16/2025 7:30 AM EST Hospital Encounter OR Admitting Dept - Virtual Department [address] [place] [address] David Patel DO [address] [place] [address] Orthopedics & Sports Medicine, [facility] [place] [address] 07/16/2025 7:30 AM EST - 07/16/2025 9:55 AM EST Surgery OR Admitting Dept - Virtual Department [address] [place] [address] David Patel DO [address] [place] [address] [facility] [place] [address] ARTHROPLASTY ANATOMIC INVERSE SHOULDER 08/01/2025 8:00 AM EST Office Visit [facility] Orthopedics & Sports Medicine [address] [place] [address] Cameron Hayward PA-C [address] [place] [address] [place] [address] [email or web address] 08/29/2025 9:00 AM EST Office Visit [facility] Orthopedics & Sports Medicine [address] [place] [address] David Patel DO [address] [place] [address] Orthopedics & [facility] [place] [address] 10/29/2025 8:00 AM EDT Office Visit [facility] Rheumatology [address] [place] [address] Anay Bliss MD [address] [place] [address], [address] [place] [address] [email or web address] Scheduled Procedures Name Priority Associated Diagnoses Date/Ti nc ARTHROPLASTY ANATOMIC INVERSE SHOULDER Instability of prosthetic [...] and diffusion-weighted imaging with ADC map, coronal [id number] and STIR, sagittal T1 and T2 FLAIR [...] sequela documented in this encounter Care Teams Food Editor Relationship Specialty Start Date End Date Demetrio Gonzales MD [address] [place] [address] PCP - General 06/10/17 11/26/24 Lucius Hannon MD [address] [place] [address] PCP - General Internal Medicine 11/27/24 See Wan MD [address] [place] [address] [email or web address] Historical LMR Provider 06/09/17 Anay Bliss MD [address] [place], [place] [address] [address] Historical LMR Provider 06/09/17 Tammi Corral PA-C [address] [place] [address] Orthopedics Sports [facility], [place] [address] Historical LMR Provider 06/09/17 08/30/21 David Patel DO [address] [place] [address] [facility] [place] [address] Historical LMR Provider 06/09/17 Demetrio Gonzales MD [address] [place] [address] [place] [address] Historical LMR Provider 06/09/17 2 Linette Echeverria PA-C [address] [place] [address] [place] [address] Historical LMR Provider 06/09/17 08/30/21 Cirilo Bernard MD [address] [place] [address], [facility] [address] [place] [address] Historical LMR Provider 06/09/17 08/30/21 Akil Jenkins MD [address] [place] [address] Historical LMR Provider 06/09/17 2 documented as of this encounter Additional Source Comments The information contained in this document represents components of the legal health record. It is not the complete legal health record.[facility]
--- OUTSIDE RECORDS SUMMARY | 2025-05-15 09:35 | XMS_ITS | Encounter Summary ---
Author Organization [facility] Address [address] [place] [address] Phone Care Team Providers Care Flexo Operator Name Role Phone See Wan MD Unavailable [phone] Anay Bliss MD Unavailable Tammi Corral PA-C Unavailable [phone] David Patel DO Unavailable [phone] Demetrio Gonzales MD Unavailable Linette Echeverria PA-C Unavailable [phone] Cirilo Bernard MD Unavailable Akil Jenkins MD Unavailable [phone] Demetrio Gonzales MD Primary Care Provider Lucius Hannon MD Primary Care Provid er Encounter Details Date Type Department Care Team (Latest Contact Info) Description 08/29/[address] [facility] [address] [place] [address] [id number] Tee Oneal MD [address] [place] [address], [address] [place] [address] [email or web address] Nonintractable headache, unspecified chronicity pattern, [...] Description 06/20/2025 8:00 AM EDT Office Visit [facility] Orth[facility]ics & Sports Medicine [address] [place] [address] Cameron Hayward PA-C [address] [place] [address] [place] [address] [email or web address] 07/16/2025 Procedure Pass OR Admitting Dept - Virtual Department [address] [place] [address] 07/16/2025 7:30 AM EST Hospital Encounter OR Admitting Dept - Virtual Department [address] [place] [address] David Patel DO [address] [place] [address] Orthopedics & Sports [facility] [address] 07/16/2025 7:30 AM EST - 07/16/2025 9:55 AM EST Surgery OR Admitting Dept - Virtual Department [address] [place] [address] David Patel DO [address] [place] [address] Orthopedics & Sports [facility], [place] [address] ARTHROPLASTY ANATOMIC INVERSE SHOULDER 08/01/2025 8:00 AM EST Office Visit [facility] Medicine [address] [place] [address] Cameron Hayward PA-C [address] [place] [address] [place] [address] [email or web address] 08/29/2025 9:00 AM EST Office Visit [facility] Medicine [address] [place] [address] David Patel DO [address] [place] [address] Orthopedics & Sports Medicine, [facility] [address] 10/29/2025 8:00 AM EDT Office Visit [facility] Rheumatology [address] [place] [address] Anay Bliss MD 22 [facility], [address] [place] [address] [email or web address] Scheduled Procedures Name Priority Associated Diagnoses Date/Ti me ARTHROPLASTY ANATOMIC INVERSE SHOULDER Instability of prosthetic shoulder joint, sequela 07/16/2025 7:30 AM EST documented as of this encounter Results * Lipase (08/29/2018 9:26 AM EST) LIPASE 35 16 - 63 U/L [facility] Blood 08/29/2018 9:26 AM EST 08/29/2018 9:29 AM EST us Tee Oneal MD LAB BLOOD ORDERABLES Final R esult [facility] [address] [place] [address] * Amylase (08/29/2018 9:26 AM EST) AMYLASE 70 28 - 100 U/L [facility] Blood 08/29/2018 9:26 AM EST 08/29/2018 9:29 AM EST us Tee Oneal MD LAB BLOOD ORDERABLES Final R esult [facility] [address] [place] [address] documented in this encounter Visit Diagnoses Diagnosis Nonintractable headache, unspecified chronicity pattern, unspecified headache type- Primary Instability of prosthetic shoulder joint, sequela documented in this encounter Care Teams Flexo Operator Relationship Specialty Start Date End Date Demetrio Gonzales MD [address] [place] [address] PCP - General 06/10/17 11/26/24 Lucius Hannon MD [address] [place] [address] PCP - General Internal Medicine 11/27/24 See Wan MD [address] [place] [address] [email or web address] Historical LMR Provider 06/09/17 Anay Bliss MD [address] [place] [address] [address] [place] [address] [email or web address] Historical LMR Provider 06/09/17 Tammi Corral PA-C [address] [place] [address] Orthopedics & Sports [facility], [place] [address] Historical LMR Provider 06/09/17 08/30/21 David Patel DO [address] [place] [address] Orthopedics Sports [facility], [place] [address] Historical LMR Provider 06/09/17 Demetrio Gonzales MD [address] [place] [address] [place] [address] Historical LMR Provider 06/09/17 2 Linette Echeverria PA-C [address] [place] [address] Orthopedics & Sports Medicine, [place] [address] Historical LMR Provider 06/09/17 08/30/21 Cirilo Bernard MD [address] [place] [address] Historical LMR Provider 06/09/17 08/30/21 Akil Jenkins MD [address] [place] [address] Historical LMR Provider 06/09/17 2 documented as of this encounter Additional Source Comments The information contained in this document represents components of the legal health record. It is not the complete legal health record.[facility]
--- OUTSIDE RECORDS SUMMARY | 2025-05-15 09:35 | XMS_ITS | Patient Health Record ---
Author Organization [facility] Address [address] [place] [phone] Care Team Providers Care Joint Special Operations Name Role Phone Christian (RETIRED) Demetrio RENDON Primary Care Provide Jose J Betancourt [phone] Allergies Allergen (clinical drug ingredient) Drug/Non Drug [...] W/U Status Risk Notes Problem Esophageal reflux (686705629) Esophageal reflux (K21.9) Active confirmed Problem 764733636 Encounter for screening for malignant neoplasm of colon (Z12.11) Active confirmed Problem 198094244 Irritable bowel syndrome with diarrhea (K58.0) Active confirmed Problem Dysphagia (86905367) Dysphagia (R13.10) Active confirmed Problem Benign neoplasm of stomach (36787716) Gastric polyps (K31.7) Active confirmed Problem Gastritis (0231451) Gastritis (K29.70) Active confirmed Problem 04324801 Incontinence of feces, unspecified fecal incontinence type (R15.9) Active confirmed Problem 937501464 Gastroesophageal reflux disease, unspecified whether esophagitis present (K21.9) Active confirmed Problem 08404402 Esophageal dysph agia (R13.19) Active confirmed Encounters Encounter Location Date Provider Diagnosis [facility] [address] [place] [phone] 06/27/2024 Jose J Santamaria [facility] [address] [place] [phone] 07/24/2024 Jose J Santamaria Plan Of Treatment [...] OF WENDIE [address] [place] [id number] CASHBRYANNALAURO Self - patient is the insured CALLIE [address] [address] [place] [address] [id number] LAURO CASH Self - patient is the [...] disease profile in January of 2015 Denies [place],DM,CVA,renal disease Urinary incontinence Negative colonoscopy in 2019, although t he prep was somewhat limited Surgical History Surgery Date(Month/Year) Both shoulder replacements 2016/2017 Both elbows Umbillical hernia Tubal ligation Left knee replacement 2017 Bilateral eyes
--- OUTSIDE RECORDS SUMMARY | 2025-05-15 09:35 | XMS_ITS | Encounter Summary ---
Author Organization [facility] Address [address] [place] [address] Phone Care Team Providers Care Hall Tender Name Role Phone See Wan MD Unavailable Anay Bliss MD Unavailable Tammi Corral PA-C Unavailable [phone] David Patel DO Unavailable Demetrio Gonzales MD Unavailable Linette Echeverria PA-C Unavailable Criilo Bernard MD Unavailable Akil Jenkins MD Unavailable [phone] Demetrio Gonzales MD Primary Care Provider Lucius Hannon MD Primary Care Provid er Encounter Details Date Type Department Care Team (Late st Contact Info) Description 04/23/2020 Procedure Pass [address] [id number] Social History Tobacco Use Types Packs/Day Years [...] Description 06/20/2025 8:00 AM EDT Office Visit [facility] Orthopedics & Sports Medicine [address] [place] [address] Cameron Hayward PA-C [address] [place] [address] [place] [address] [email or web address] 07/16/2025 Procedure Pass OR Admitting Dept - Virtual Department [address] [place] [address] 07/16/2025 7:30 AM EST Hospital Encounter OR Admitting Dept - Virtual Department [address] [place] [address] David Patel DO [address] [place] [address] [facility], [place] [address] 07/16/2025 7:30 AM EST - 07/16/2025 9:55 AM EST Surgery OR Admitting Dept - Virtual Department [address] [place] [address] David Patel DO [address] [place] [address] [facility], [place] [address] ARTHROPLASTY ANATOMIC INVERSE SHOULDER 08/01/2025 8:00 AM EST Office Visit [facility] Orthopedics & Sports Medicine [address] [place] [address] Cameron Hayward PA-C [address] [place] [address] [place] [address] [email or web address] 08/29/2025 9:00 AM EST Office Visit [facility] Orthopedics & Sports Medicine [address] [place] [address] David Patel DO [address] [place] [address] Orthopedics & Sports Medicine, [place] [address] 10/29/2025 8:00 AM EDT Office Visit [facility] Rheumatology [address] [place] [address] [place] [address] Anay Bliss MD [address] [place] [address], [address] [address] [email or web address] Scheduled Procedures Name Priority Associated Diagnoses Date/Ti me ARTHROPLASTY ANATOMIC INVERSE SHOULDER Instability of prosthetic shoulder joint, sequela 07/16/2025 7:30 AM EST documented as of this encounter Visit Diagnoses Not on filedocumented in this encounter Care Teams Hall Tender Relationship Specialty Start Date End Date Demetrio Gonzales MD [address] [place] [address] PCP - General 06/10/17 11/26/24 Lucius Hannon MD [address] [place] [address] PCP - General Internal Medicine 11/27/24 See Wan MD [address] [place] [address] [email or web address] Historical LMR Provider 06/09/17 Anay Bliss MD [address] [place] [address], [address] [address] Historical LMR Provider 06/09/17 Tamim Corral PA-C 4 [facility] Orthopedics & Sports Medicine, [place] [address] Historical LMR Provider 06/09/17 08/30/21 David Patel DO 4 [facility] Orthopedics & Sports [facility], [place] [address] Historical LMR Provider 06/09/17 Demetrio Gonzales MD [address] [place] [address] [place] [address] Historical LMR Provider 06/09/17 2 Linette Echeverria PA-C [address] [place] [address] Orthopedics & Sports Medicine, [place] [address] Historical LMR Provider 06/09/17 08/30/21 Cirilo Bernard MD [address] [place] [address] Historical LMR Provider 06/09/17 08/30/21 Akil Jenkins MD [address] [place] [address] Historical LMR Provider 06/09/17 2 documented as of this encounter Additional Source Comments The information contained in this document represents components of the legal health record. It is not the complete legal health record.[facility]
--- OUTSIDE RECORDS SUMMARY | 2025-05-15 09:36 | XMS_ITS | Encounter Summary ---
Author Organization [facility] Address [address] [place] [address] [place] [address] Phone Care Team Providers Care Manager Of Data Name Role Phone See Wan MD Unavailable [phone] Anay Bliss MD Unavailable David Patel DO Unavailable Demetrio Gonzales MD Primary Care Provider Lucius Hannon MD Primary Care Provid er Encounter Details Date Type Department Care Team (Late st Contact Info) Description 02/05/2023 Procedure Pass OR Admitting Dept - Virtual Department [address] [place] [address] Social History Tobacco Use Types Packs/Day Years [...] 10:22 PM EDT Prashant Gutiérrez RN * [place] Suicide Severity Rating Scale (Screener/Recent Self-Report) Question [...] Description 06/20/2025 8:00 AM EDT Office Visit [facility] Orthopedics & Sports Medicine [address] [place] [address] Cameron Hayward PA-C [address] [place] [address] [place] [address] [email or web address] 07/16/2025 Procedure Pass OR Admitting Dept - Virtual Department [address] [place] [address] 07/16/2025 7:30 AM EST Hospital Encounter OR Admitting Dept - Virtual Department [address] [place] [address] David Patel DO [address] [place] [address] Orthopedics & Sports Medicine, [facility] [place] [address] 07/16/2025 7:30 AM EST - 07/16/2025 9:55 AM EST Surgery OR Admitting Dept - Virtual Department [address] [place] [address] David Patel DO [address] [place] [address] Orth[facility] [place] [address] ARTHROPLASTY ANATOMIC INVERSE SHOULDER 08/01/2025 8:00 AM EST Office Visit [facility] Orthopedics & Sports Medicine [address] [place] [address] Cameron Hayward PA-C [address] [place] [address] [place] [address] [email or web address] 08/29/2025 9:00 AM EST Office Visit [facility] Orthopedics & Sports Medicine [address] [place] [address] David Patel DO [address] [place] [address] Orthopedics & Sports [facility], [place] [address] 10/29/2025 8:00 AM EDT Office Visit [facility] Rheumatology [address] [place] [address] Anay Bliss MD 22 [facility], [address] [place] [address] [email or web address] Scheduled Procedures Name Priority Associated Diagnoses Date/Ti me ARTHROPLASTY ANATOMIC INVERSE SHOULDER Instability of prosthetic shoulder joint, sequela 07/16/2025 7:30 AM EST documented as of this encounter Visit Diagnoses Not on filedocumented in this encounter Care Teams Manager Of Data Relationship Specialty Start Date End Date Demetrio Gonzales MD [address] [place] [address] [place] [address] PCP - General 06/10/17 11/26/24 Lucius Hannon MD [address] [place] [address] [place] [address] PCP - General Internal Medicine 11/27/24 See Wan MD [address] [place] [address] [email or web address] Historical LMR Provider 06/09/17 Anay Bliss MD [address] [place] [address] 203 [place] [address] [email or web address] Historical LMR Provider 06/09/17 David Patel DO [address] [place] [address] Orthopedics & Sports Medicine, [place] [address] Historical LMR Provider 06/09/17 documented as of this encounter Additional Source Comments The information contained in this document represents components of the legal health record. It is not the complete legal health record.[facility]
--- OUTSIDE RECORDS SUMMARY | 2025-05-15 09:36 | XMS_ITS | Encounter Summary ---
Author Organization [facility] Address [address] [place] [address] Phone Care Team Providers Care Insert Molding Operator Name Role Phone See Wan MD Unavailable Anay Bliss MD Unavailable [phone] Tammi Corral PA-C Unavailable [phone] David Patel DO Unavailable [phone] Demetrio Gonzales MD Unavailable Linette Echeverria PA-C Unavailable Cirilo Bernard MD Unavailable [phone] Akil Jenkins MD Unavailable [phone] Demetrio Gonzales MD Primary Care Provider Lucius Hannon MD Primary Care Provid er Encounter Details Date Type Department Care Team (Late st Contact Info) Description 08/10/2018 Procedure Pass [facility], [address] [address] Social History Tobacco Use Types Packs/Day Years [...] Description 06/20/2025 8:00 AM EDT Office Visit [facility] [place] [facility] Orthopedics & Sports Medicine [address] [place] [address] Cameron Hayward PA-C [address] [place] [address] [place] [address] [email or web address] 07/16/2025 Procedure Pass OR Admitting Dept - Virtual Department [address] [place] [address] 07/16/2025 7:30 AM EST Hospital Encounter OR Admitting Dept - Virtual Department [address] [place] [address] David Patel DO [address] [place] [address] Orthopedics & Sports [facility] [place] [address] 07/16/2025 7:30 AM EST - 07/16/2025 9:55 AM EST Surgery OR Admitting Dept - Virtual Department [address] [place] [address] David Patel DO [address] [place] [address] Orthopedics & Sports [facility] [place] [address] ARTHROPLASTY ANATOMIC INVERSE SHOULDER 08/01/2025 8:00 AM EST Office Visit [facility] Orthopedics & Sports Medicine [address] [place] [address] Cameron Hayward PA-C [address] [place] [address] [place] [address] [email or web address] 08/29/2025 9:00 AM EST Office Visit [facility] Orthopedics & Sports Medicine [address] [place] [address] David Patel DO [address] [place] [address] Orthopedics & Sports Medicine, [place] [address] 10/29/2025 8:00 AM EDT Office Visit [facility] Rheumatology [address] [place] [address] [place] [address] Anay Bliss MD [address] [place] [address], [address] [place] [address] [email or web address] Scheduled Procedures Name Priority Associated Diagnoses Date/Ti me ARTHROPLASTY ANATOMIC INVERSE SHOULDER Instability of prosthetic shoulder joint, sequela 07/16/2025 7:30 AM EST documented as of this encounter Visit Diagnoses Not on filedocumented in this encounter Care Teams Insert Molding Operator Relationship Specialty Start Date End Date Demetrio Gonzales MD [address] [place] [address] PCP - General 06/10/17 11/26/24 Lucius Hannon MD [address] [place] [address] PCP - General Internal Medicine 11/27/24 See Wan MD [address] [place] [address] [email or web address] Historical LMR Provider 06/09/17 Anay Bliss MD [address] [facility], [address] [place] [address] Historical LMR Provider 06/09/17 Tammi Corral PA-C [address] [place] [address] Orthopedics & Sports [facility], [place] [address] Historical LMR Provider 06/09/17 08/30/21 David Patel DO [address] [place] [address] Orthopedics Sports [facility], [place] [address] Historical LMR Provider 06/09/17 Demetrio Gonzales MD [address] [place] [address] [facility] [place] [address] Historical LMR Provider 06/09/17 2 Linette Echeverria PA-C [address] [place] [address] Orthopedics Sports [facility], [place] [address] Historical LMR Provider 06/09/17 08/30/21 Cirilo Bernard MD [address], [address] [place] [address] Historical LMR Provider 06/09/17 08/30/21 Akil Jenkins MD [address] [place] [address] Historical LMR Provider 06/09/17 2 documented as of this encounter Additional Source Comments The information contained in this document represents components of the legal health record. It is not the complete legal health record.[facility]
--- OUTSIDE RECORDS SUMMARY | 2025-05-15 09:36 | XMS_ITS | Encounter Summary ---
Author Organization [facility] Address [address] [place] [address] Phone Care Team Providers Care Wort Extractor Name Role Phone See Wan MD Unavailable Anay Bliss MD Unavailable Tammi Corral PA-C Unavailable [phone] David Patel DO Unavailable [phone] eDmetrio Gonzales MD Unavailable Linette Echeverria PA-C Unavailable Cirilo Bernard MD Unavailable [phone] Akil Jenkins MD Unavailable [phone] Demetrio Gonzales MD Primary Care Provider Lucius Hannon MD Primary Care Provid er Encounter Details Date Type Department Care Team (Late st Contact Info) Description 01/29/2021 Procedure Pass [facility] Scan - [address] [phone] Social History Tobacco Use Types Packs/Day Years [...] 8:31 AM EDT Latasha Quiroga RN * [place] Suicide Severity Rating Scale (Screener/Recent Self-Report) Question [...] Description 06/20/2025 8:00 AM EDT Office Visit [facility] Orthopedics & Sports Medicine [address] [place] [address] Cameron Hayward PA-C [address] [place] [address] [place] [address] [email or web address] 07/16/2025 Procedure Pass OR Admitting Dept - Virtual Department [address] [place] [address] 07/16/2025 7:30 AM EST Hospital Encounter OR Admitting Dept - Virtual Department [address] [place] [address] David Patel DO [address] [place] [address] Orthopedics & Sports Medicine, [place] [address] 07/16/2025 7:30 AM EST - 07/16/2025 9:55 AM EST Surgery OR Admitting Dept - Virtual Department [address] [place] [address] David Patel DO [address] [place] [address] [facility] [place] [place] [address] ARTHROPLASTY ANATOMIC INVERSE SHOULDER 08/01/2025 8:00 AM EST Office Visit [facility] Orthopedics & Sports Medicine [address] [place] [address] Cameron Hayward PA-C [address] [place] [address] [place] [address] [email or web address] 08/29/2025 9:00 AM EST Office Visit [facility] Orthopedics & Sports Medicine [address] [place] [address] David Patel DO [address] [place] [address] Orthopedics & Sports Medicine, [place] [address] 10/29/2025 8:00 AM EDT Office Visit [facility] Rheumatology [address] [place] [address] Anay Bliss MD [address] [place] [address], [address] [place] [address] [email or web address] Scheduled Procedures Name Priority Associated Diagnoses Date/Ti me ARTHROPLASTY ANATOMIC INVERSE SHOULDER Instability of prosthetic shoulder joint, sequela 07/16/2025 7:30 AM EST documented as of this encounter Visit Diagnoses Not on filedocumented in this encounter Care Teams Wort Extractor Relationship Specialty Start Date End Date Demetrio Gonzales MD [address] [place] [address] PCP - General 06/10/17 11/26/24 Lucius Hannon MD [address] [place] [address] PCP - General Internal Medicine 11/27/24 See Wan MD [address] [place] [address] [email or web address] Historical LMR Provider 06/09/17 Anay Bliss MD [address] [place] [address], [address] [place] [address] Historical LMR Provider 06/09/17 Tammi Corral PA-C [address] [place] [address] Orthopedics Sports [facility], [place] [address] Historical LMR Provider 06/09/17 08/30/21 David Patel DO [address] [place] [address] Orthopedics Sports [facility], [place] [address] Historical LMR Provider 06/09/17 Demetrio Gonzales MD [address] [place] [address] [place] [address] Historical LMR Provider 06/09/17 Linette Patel PA-C [address] [place] [address] Orthopedics Sports [facility], [place] [address] Historical LMR Provider 06/09/17 08/30/21 Cirilo Bernard MD [address] [place] [address], [address] [place] [address] Historical LMR Provider 06/09/17 08/30/21 Aikl Jenkins MD [address] [place] [address] Historical LMR Provider 06/09/17 2 documented as of this encounter Additional Source Comments The information contained in this document represents components of the legal health record. It is not the complete legal health record.[facility]
--- OUTSIDE RECORDS SUMMARY | 2025-05-15 09:36 | XMS_ITS | Encounter Summary ---
Author Organization [facility] Address [address] [place] [address] Phone Care Team Providers Care Baggage And Mail Agent Name Role Phone See Wan MD Unavailable [phone] Anay Bliss MD Unavailable Tammi Corral PA-C Unavailable [phone] David Patel DO Unavailable [phone] Demetrio Gonzales MD Unavailable [phone] Linette Echeverria PA-C Unavailable Cirilo Bernard MD Unavailable [phone] Akil Jenkins MD Unavailable [phone] Demetrio Gonzales MD Primary Care Provider Lucius Hannon MD Primary Care Provid er Encounter Details Date Type Department Care Team (Latest Contact Info) Description 11/04/2017 Transcribe Orders [facility] Laboratory [address] [place], [place] [id number] Hayley Collins, BENZENE STILL UTILITY OPERATOR [address] [place] [address] [address] [place], [place] [id number] [email or web address] Nonintractable headache, unspecified chronicity pattern, unspecified [...] Description 06/20/2025 8:00 AM EDT Office Visit [facility] Orthopedics & Sports Medicine [address] [place] [address] Cameron Hayward PA-C [address] [place] [address] [place] [address] [email or web address] 07/16/2025 Procedure Pass OR Admitting Dept - Virtual Department [address] [place] [address] 07/16/2025 7:30 AM EST Hospital Encounter OR Admitting Dept - Virtual Department [address] [place] [address] David Patel DO [address] [place] [address] Orth[facility] [place] [address] 07/16/2025 7:30 AM EST - 07/16/2025 9:55 AM EST Surgery OR Admitting Dept - Virtual Department [address] [place] [address] David Patel DO [address] [place] [address] Orthopedics & Sports [facility] [place] [address] ARTHROPLASTY ANATOMIC INVERSE SHOULDER 08/01/2025 8:00 AM EST Office Visit [facility] Orthopedics & Sports Medicine [address] [place] [address] Cameron Hayward PA-C [address] [place] [address] [place] [address] [email or web address] 08/29/2025 9:00 AM EST Office Visit [facility] Orthopedics & Sports Medicine [address] [place] [address] David Patel DO [address] [place] [address] Orthopedics & Sports Medicine, [place], [place] [id number] 10/29/2025 8:00 AM EDT Office Visit [facility] Rheumatology [address] [place] [address] [place] [address] Anay Bliss MD 22 [facility], [address] [place] [address] [email or web address] Scheduled Procedures Name Priority Associated Diagnoses Date/Ti me ARTHROPLASTY ANATOMIC INVERSE SHOULDER Instability of prosthetic shoulder joint, sequela 07/16/2025 7:30 AM EST documented as of this encounter Results * CBC (11/04/2017 9:10 AM EDT) WBC 4.31 3.40 - 11.20 K/uL [facility] RBC 4.47 3.80 - 4.80 M/uL [facility] HGB 14.1 12.0 - 15.0 g/dL [facility] HCT 41.0 36.0 - 46.0 % [facility] PLT 184 130 - 400 K/uL [facility] MCV 91.7 79.0 - 98.0 fL [facility] MCH 31.5 27.0 - 34.8 pg [facility] MCHC 34.4 31.5 - 36.0 g/dL [facility] RDW 12.4 10.8 - 14.6 % [facility] MPV 10.3 9.4 - 12.4 fl [facility] NRBC 0.00 /100 WBCs [facility] ABSOLUTE NRBC 0.00 K/uL [facility] Blood 11/04/2017 9:10 AM EDT 11/04/2017 9:14 AM EDT us Hayley Collins BENZENE STILL UTILITY OPERATOR LAB BLOOD ORDERABLES Fin al Result Performing Organization Address [facility] Co de Phone Number [address] [address] * LFTs (hepatic panel) (11/04/2017 9:10 AM EDT) ALKALINE PHOSPHATASE 65 39 - 117 U/L [facility] TOTAL BILIRUBIN 0.3 0.0 - 1.2 mg/dL [facility] DIRECT BILIRUBIN <0.2 0 - 0.3 mg/dL [facility] Bilirubin (Indirect) NOT CALCULATED 0 - 1.5 mg/dL [facility] AST 21 0 - 37 U/L [facility] ALT 16 0 - 40 U/L [facility] TOTAL PROTEIN 6.8 6.5 - 8.0 g/dL [facility] ALBUMIN 3.9 3.9 - 4.8 g/dL [facility] GLOBULIN 2.9 1 - 4.8 g/dL [facility] A/G Ratio 1.34 1.00 - 4.80 RATIO [facility] Blood 11/04/2017 9:10 AM EDT 11/04/2017 9:14 AM EDT us Hayley Collins BENZENE STILL UTILITY OPERATOR LAB BLOOD ORDERABLES Fin al Result Performing Organization Address [facility] Co de Phone Number [address] [address] documented in this encounter Visit Diagnoses Diagnosis Nonintractable headache, unspecified chronicity pattern, unspecified headache type- Primary Instability of prosthetic shoulder joint, sequela documented in this encounter Care Teams Baggage And Mail Agent Relationship Specialty Start Date End Date Demetrio Gonzales MD [address] [place] [address] [place] [address] PCP - General 06/10/17 11/26/24 Lucius Hannon MD [address] [place] [address] PCP - General Internal Medicine 11/27/24 See Wan MD [address] [place] [address] [email or web address] Historical LMR Provider 06/09/17 Anay Bliss MD [address] [place] [address], [address] [place] [address] [email or web address] Historical LMR Provider 06/09/17 Tammi Corral PA-C [address] [place] [address] Orthopedics Sports [facility], [place] [address] Historical LMR Provider 06/09/17 08/30/21 David Patel DO [address] [place] [address] Orthopedics Sports [facility], [place] [address] Historical LMR Provider 06/09/17 Demetrio Gonzales MD [address] [place] [address] Historical LMR Provider 06/09/17 2 Linette Echeverria PA-C [address] [place] [address] Orthopedics Sports [facility], [place] [address] Historical LMR Provider 06/09/17 08/30/21 Cirilo Bernard MD [address] [place] [address] [email or web address] Historical LMR Provider 06/09/17 08/30/21 Akil Jenkins MD [address] [place] [address] Historical LMR Provider 06/09/17 2 documented as of this encounter Additional Source Comments The information contained in this document represents components of the legal health record. It is not the complete legal health record.[facility]
--- OUTSIDE RECORDS SUMMARY | 2025-05-15 09:36 | XMS_ITS | Encounter Summary ---
Author Organization [facility] Address [address] [place] [address] Phone Care Team Providers Care Family Mediator Name Role Phone See Wan MD Unavailable [phone] Anay Bliss MD Unavailable Tammi Corral PA-C Unavailable [phone] David Patel DO Unavailable [phone] Demetrio Gonzales MD Unavailable [phone] Linette Echeverria PA-C Unavailable Cirilo Bernard MD Unavailable Akil Jenkins MD Unavailable [phone] Demetrio Gonzales MD Primary Care Provider Lucius Hannon MD Primary Care Provid er Encounter Details Date Type Department Care Team (Latest Contact Info) Description 02/13/2019 Transcribe Orders [facility] [address] [place] [address] Tee Oneal MD [address] [place] [address], [address] [place] [address] [email or web address] Numbness (Primary Dx) Social History Tobacco [...] Description 06/20/2025 8:00 AM EDT Office Visit [facility] Orthopedics & Sports Medicine [address] [place] [address] Cameron Hayward PA-C [address] [place] [address] [place] [address] [email or web address] 07/16/2025 Procedure Pass OR Admitting Dept - Virtual Department [address] [place] [address] 07/16/2025 7:30 AM EST Hospital Encounter OR Admitting Dept - Virtual Department [address] [place] [address] David Patel DO [address] [place] [address] Orthopedics & Sports [facility], [place] [address] 07/16/2025 7:30 AM EST - 07/16/2025 9:55 AM EST Surgery OR Admitting Dept - Virtual Department [address] [place] [address] David Patel DO 4 [facility] Orthopedics Sports [facility], [place] [address] ARTHROPLASTY ANATOMIC INVERSE SHOULDER 08/01/2025 8:00 AM EST Office Visit [facility] Orthopedics & Sports Medicine [address] [place] [address] Cameron Hayward PA-C [address] [place] [address] [place] [address] [email or web address] 08/29/2025 9:00 AM EST Office Visit [facility] Orthopedics & Sports Medicine [address] [place] [address] David Patel DO [address] [place] [address] Orthopedics & Sports Medicine, [place] [address] 10/29/2025 8:00 AM EDT Office Visit [facility] Rheumatology [address] [place] [address] [place] [address] Anay Bliss MD [address] [place] [address], [address] [place] [address] [email or web address] Scheduled Procedures Name Priority Associated Diagnoses Date/Ti me ARTHROPLASTY ANATOMIC INVERSE SHOULDER Instability of prosthetic shoulder joint, sequela 07/16/2025 7:30 AM EST documented as of this encounter Results * (ABNORMAL) Glucose (02/13/2019 8:42 AM EDT) GLUCOSE 111(H) 70 - 99 mg/dL [facility] Blood 02/13/2019 8:42 AM EDT 02/13/2019 9:20 AM EDT us Tee Oneal MD LAB BLOOD ORDERABLES Final R esult [facility] [address] [place] [address] documented in this encounter Visit Diagnoses Diagnosis Numbness- Primary Disturbance of skin sensation Instability of prosthetic shoulder joint, sequela documented in this encounter Care Teams Family Mediator Relationship Specialty Start Date End Date Demetrio Gonzaels MD [address] [place] [address] [place] [address] PCP - General 06/10/17 11/26/24 Lucius Hannon MD [address] [place] [address] PCP - General Internal Medicine 11/27/24 See Wan MD [address] [place] [address] [email or web address] Historical LMR Provider 06/09/17 Anay Bliss MD [address] [place] [address], [address] [place] [address] Historical LMR Provider 06/09/17 Tammi Corral PA-C [address] [place] [address] Orthopedics Sports [facility], [place] [address] Historical LMR Provider 06/09/17 08/30/21 David Patel DO [address] [place] [address] Orthopedics Sports [facility], [place] [address] Historical LMR Provider 06/09/17 Demetrio Gonzales MD [address] [place] [address] Historical LMR Provider 06/09/17 2 Linette Echeverria PA-C [address] [place] [address] Orthopedics Sports [facility], [place] [address] Historical LMR Provider 06/09/17 08/30/21 Cirilo Bernard MD [address] [place] [address] [email or web address] Historical LMR Provider 06/09/17 08/30/21 Akil Jenkins MD [address] [place] [address] Historical LMR Provider 06/09/17 2 documented as of this encounter Additional Source Comments The information contained in this document represents components of the legal health record. It is not the complete legal health record.[facility]
--- OUTSIDE RECORDS SUMMARY | 2025-05-15 09:36 | XMS_ITS | Encounter Summary ---
Author Organization [facility] Address [address] [place] [address] Phone Care Team Providers Care Holistic Specialist Name Role Phone See Wan MD Unavailable [phone] Anay Bliss MD Unavailable Tammi Corral PA-C Unavailable [phone] David Patel DO Unavailable Demetrio Gonzales MD Unavailable [phone] Linette Echeverria PA-C Unavailable Cirilo Bernard MD Unavailable [phone] Akil Jenkins MD Unavailable [phone] Demetrio Gonzales MD Primary Care Provider Lucius Hannon MD Primary Care Provid er Reason for Referral * MRI/CAT Scan - Closed Specialty Diagnoses / Procedures Referred By Edmond leo Referred To Contact Radiology Diagnoses MS (multiple sclerosis) Procedures MRI Thoracic Spine Tee Oneal MD Phone: tel: fax: [email or web address] Referral ID Status Reason Start Date Expiration Date Visits Re quested Visits Authorized [id number] Closed 08/10/2018 11/08/2018 1 1 Encounter Details Date Type Department Care Team (Late st Contact Info) Description 08/10/2018 Ancillary Orders Virtual Department [address] [place] [address] Tee Oneal MD [address] [place] [address], [address] [place] [address] [email or web address] MS (multiple sclerosis) Social History [...] Description 06/20/2025 8:00 AM EDT Office Visit [facility] Orthopedics & Sports Medicine [address] [place] [address] Cameron Hayward PA-C [address] [place] [address] [place] [address] [email or web address] 07/16/2025 Procedure Pass OR Admitting Dept - Virtual Department [address] [place] [address] 07/16/2025 7:30 AM EST Hospital Encounter OR Admitting Dept - Virtual Department [address] [place] [address] David Patel DO [address] [place] [address] Orthopedics & Sports Medicine, [place] [address] 07/16/2025 7:30 AM EST - 07/16/2025 9:55 AM EST Surgery OR Admitting Dept - Virtual Department [address] [place] [address] David Patel DO [address] [place] [address] [facility] [place] [place] [address] ARTHROPLASTY ANATOMIC INVERSE SHOULDER 08/01/2025 8:00 AM EST Office Visit [facility] Orthopedics & Sports Medicine [address] [place] [address] Cameron Hayward PA-C [address] [place] [address] [place] [address] [email or web address] 08/29/2025 9:00 AM EST Office Visit [facility] Orthopedics & Sports Medicine [address] [place] [address] David Patel DO [address] [place] [address] Orthopedics & Sports Medicine, [place] [address] 10/29/2025 8:00 AM EDT Office Visit [facility] Rheumatology [address] [place] [address] Anay Bliss MD [address] [place] [address], [address] [place] [address] [email or web address] Scheduled Procedures Name Priority Associated Diagnoses Date/Ti ri ARTHROPLASTY ANATOMIC INVERSE SHOULDER Instability of prosthetic [...] sequela documented in this encounter Care Teams Holistic Specialist Relationship Specialty Start Date End Date Demetrio Gonzales MD [address] [place] [address] PCP - General 06/10/17 11/26/24 Lucius Hannon MD [address] [place] [address] PCP - General Internal Medicine 11/27/24 See Wan MD [address] [place] [address] [email or web address] Historical LMR Provider 06/09/17 Anay Bliss MD [address] [place] [address], [address] [place] [address] [email or web address] Historical LMR Provider 06/09/17 Tammi Corral PA-C [address] [place] [address] Orthopedics & Sports Medicine, [place] [address] Historical LMR Provider 06/09/17 08/30/21 David Patel DO 4 [facility] Orthopedics & Sports Medicine, [place] [address] [email or web address] Historical LMR Provider 06/09/17 Demetrio Gonzales MD [address] [place] [address] [place] [address] Historical LMR Provider 06/09/17 2 Linette Echeverria PA-C 4 [facility] Orthopedics & Sports [facility], [place], [place] [id number] [email or web address] Historical LMR Provider 06/09/17 08/30/21 Cirilo Bernard MD [address] [place] [address] Historical LMR Provider 06/09/17 08/30/21 Akil Jenkins MD [address] [place] [address] Historical LMR Provider 06/09/17 2 documented as of this encounter Additional Source Comments The information contained in this document represents components of the legal health record. It is not the complete legal health record.[facility]
--- OUTSIDE RECORDS SUMMARY | 2025-05-15 09:36 | XMS_ITS | Encounter Summary ---
Author Organization [facility] Address [address] [place] [address] [place] [address] Phone Care Team Providers Care Pharmaceutical Development Technician Name Role Phone See Wan MD Unavailable [phone] Anay Bliss MD Unavailable [phone] David Patel DO Unavailable Lucius Hannon MD Primary Care Provid er Encounter Details Date Type Department Care Team (Late st Contact Info) Description 02/14/2025 Procedure Pass [facility], Ct Scan - [address] [id number] Social History Tobacco Use Types Packs/Day Years [...] Description 06/20/2025 8:00 AM EDT Office Visit [facility] Orthopedics & Sports Medicine [address] [place] [address] Cameron Hayward PA-C [address] [place] [address] [place] [address] [email or web address] 07/16/2025 Procedure Pass OR Admitting Dept - Virtual Department [address] [place] [address] 07/16/2025 7:30 AM EST Hospital Encounter OR Admitting Dept - Virtual Department [address] [place] [address] David Patel DO [address] [place] [address] Orthopedics & Sports [facility], [place] [address] 07/16/2025 7:30 AM EST - 07/16/2025 9:55 AM EST Surgery OR Admitting Dept - Virtual Department [address] [place] [address] David Patel DO [address] [place] [address] Orthopedics Sports [facility], [place] [address] ARTHROPLASTY ANATOMIC INVERSE SHOULDER 08/01/2025 8:00 AM EST Office Visit [facility] Orthopedics & Sports Medicine [address] [place] [place] [address] Cameron Hayward PA-C [address] [place] [address] [place] [address] [email or web address] 08/29/2025 9:00 AM EST Office Visit [facility] Orthopedics & Sports Medicine [address] [place] [place] [address] David Patel DO [address] [place], [place] [address]s [facility], [place] [address] 10/29/2025 8:00 AM EDT Office Visit [facility] Rheumatology [address] [place] [address] Anay Bliss MD [address] [place] [address] [email or web address] Scheduled Procedures Name Priority Associated Diagnoses Date/Ti me ARTHROPLASTY ANATOMIC INVERSE SHOULDER Instability of prosthetic shoulder joint, sequela 07/16/2025 7:30 AM EST documented as of this encounter Visit Diagnoses Not on filedocumented in this encounter Care Teams Pharmaceutical Development Technician Relationship Specialty Start Date End Date Lucius Hannon MD [address] [place] [address] PCP - General Internal Medicine 11/27/24 See Wan MD [address] [place] [place] [address] [email or web address] Historical LMR Provider 06/09/17 Anay Bliss MD [address] [place] [address] Historical LMR Provider 06/09/17 David Patel DO [address] [place] [address] Orthopedics Sports [facility], [place] [address] Historical LMR Provider 06/09/17 documented as of this encounter Additional Source Comments The information contained in this document represents components of the legal health record. It is not the complete legal health record.[facility]
--- OUTSIDE RECORDS SUMMARY | 2025-05-15 09:36 | XMS_ITS | Encounter Summary ---
Author Organization [facility] Address [address] [place] [id number] Phone Care Team Providers Care Manager Call Center Name Role Phone See Wan MD Unavailable [phone] Anay Bliss MD Unavailable Tammi Corral PA-C Unavailable [phone] David Patel DO Unavailable [phone] Demetrio Gonzales MD Unavailable [phone] Linette Echeverria PA-C Unavailable Cirilo Bernard MD Unavailable [phone] Akil Jenkins MD Unavailable [phone] Demetrio Gonzales MD Primary Care Provider Lucius Hannon MD Primary Care Provid er Encounter Details Date Type Department Care Team (Latest Contact Info) Description 09/28/2018 Transcribe Orders [facility] [address] [place] [address] [phone] Tee Oneal MD [address] [place] [address], [address] [place] [address] [email or web address] Nonintractable headache, unspecified [...] Description 06/20/2025 8:00 AM EDT Office Visit [facility] [address] [place] [id number] Cameron Hayward PA-C [address] [place] [address] [place] [address] [email or web address] 07/16/2025 Procedure Pass OR Admitting Dept - Virtual Department [address] [place] [address] 07/16/2025 7:30 AM EST Hospital Encounter OR Admitting Dept - Virtual Department [address] [place] [address] David Patel DO [address] [place] [address] [facility] [address] 07/16/2025 7:30 AM EST - 07/16/2025 9:55 AM EST Surgery OR Admitting Dept - Virtual Department [address] [place] [address] David Patel DO [address] [place] [address] Orthopedics & Sports [facility], [place] [address] ARTHROPLASTY ANATOMIC INVERSE SHOULDER 08/01/2025 8:00 AM EST Office Visit [facility] [address] [place] [address] Cameron Hayward PA-C [address] [place] [address] [place] [address] [email or web address] 08/29/2025 9:00 AM EST Office Visit [facility] [address] [place] [phone] David Patel DO [address] [place] [address] Orthopedics & Sports Medicine, [place] [address] 10/29/2025 8:00 AM EDT [facility] Visit [facility] [address] [place] [address] [place] [address] Anay Bliss MD [address], [address] [place] [address] [email or web address] Scheduled Procedures Name Priority Associated Diagnoses Date/Ti me ARTHROPLASTY ANATOMIC INVERSE SHOULDER Instability of prosthetic shoulder joint, sequela 07/16/2025 7:30 AM EST documented as of this encounter Visit Diagnoses Diagnosis Nonintractable headache, unspecified chronicity pattern, unspecified headache type- Primary Instability of prosthetic shoulder joint, sequela documented in this encounter Care Teams Manager Call Center Relationship Specialty Start Date End Date Demetrio Gonzales MD [address] [place] [address] PCP - General 06/10/17 11/26/24 Lucius Hannon MD [address] [place] [address] PCP - General Internal Medicine 11/27/24 See Wan MD [address] [place] [address] [email or web address] Historical LMR Provider 06/09/17 Anay Bliss MD [address], [address] [place] [address] Historical LMR Provider 06/09/17 Tammi Corral PA-C [address] [place] [address] Orthopedics Sports [facility], [place] [address] Historical LMR Provider 06/09/17 08/30/21 David Patel DO [address] [place] [address] Orthopedics [facility], [place] [address] [email or web address] Historical LMR Provider 06/09/17 Demetrio Gonzales MD [address] [place] [address] [place] [address] Historical LMR Provider 06/09/17 Linette Patel PA-C [address] [place] [address] Orthopedics [facility], [place] [address] Historical LMR Provider 06/09/17 08/30/21 Cirilo Bernard MD [address], [address] [place] [address] Historical LMR Provider 06/09/17 08/30/21 Akil Jenkins MD [address] [place] [phone] Historical LMR Provider 06/09/17 2 documented as of this encounter Additional Source Comments The information contained in this document represents components of the legal health record. It is not the complete legal health record.[email or web address]
--- OUTSIDE RECORDS SUMMARY | 2025-05-15 09:37 | XMS_ITS | Clinical Summary ---
Author Organization [facility] Address [address] [place] [address] [place] [address] Phone Care Team Providers Care Manager Of Employee Relations Name Role Phone See Wan MD Unavailable [phone] Anay Bliss MD Unavailable [phone] David Patel DO Unavailable [phone] Lucius Hannon MD Primary Care Provid er Allergies Active Allergy Reactions Criticality Noted Date Comments Gabapentin 04/21/2017 VISION CHANGES Cephalexin Nausea and/or Vomiting 08/19/2017 Meloxicam 04/10/2024 Blurred vision Sulfa (Sulfonamide Antibiotics) Hives 04/21/2017 Medications DULoxetine (CYMBALTA) 60 MG capsule Take 60 mg by mouth daily. Active amLODIPine (NORVASC) 10 MG tablet Take 10 mg by mouth daily. 8 Active fluticasone-salmete rol (ADVAIR DISKUS) 250-50 mcg/dose DISKUS Inhale 1 puff into the lungs 2 (two) times a day as needed. Active aspirin 81 MG EC tablet Take 81 mg by mouth daily. Active rosuvastatin (CRESTOR) 10 MG tablet Take 10 mg by mouth daily. 0 Active lisinopril (PRINIVIL,ZESTRIL) 5 MG tablet Take 5 mg by mouth daily. 0 Active triamterene-hydroCH LOROthiazide (MAXZIDE-25) 37.5-25 mg per tablet Take 1 tablet by mouth daily. 0 Active carisoprodol (SOMA) 350 MG tablet Take 350 mg by mouth 2 (two) times a day as needed. 1 Active carBAMazepine (CARBATROL) 100 mg 12 hr capsule Take 100 mg by mouth. 1 Active oxybutynin (DITROPAN XL) 15 MG 24 hr tablet Take 1 tablet by mouth daily. 2 Active omeprazole (PRILOSEC) 40 MG capsule Take 40 mg by mouth daily as needed. 2 Active albuterol 90 mcg/actuation inhaler 2 Active hyoscyamine (LEVBID) 0.375 mg 12 hr tablet Take 1 tablet by mouth 2 (two) times a day. 3 Active psyllium (METAMUCIL) 0.4 gram capsule Take 1.2 g by mouth daily. Active traMADoL (ULTRAM) 50 mg tablet Take 1-2 tablets (50-100 mg total) by mouth every 8 (eight) hours as needed for pain (specific location in comments). 5 tablet 3 Active divalproex (DEPAKOTE ER) 500 MG ER 24 hr tablet Take 1,000 mg by mouth daily. 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 Keep headboard elevated at 45 angle for nighttime. Okay to reach for omeprazole 20 mg if necessary-the least frequently the better NSAID long-term use 11/08/2024 Assessment & Plan (05/14/2025 8:01 AM EDT): Take the lowest dose, with least frequency, for shortest time. Remember to take it always with food. Favor topical over oral preparations. Assessment & Plan (11/08/2024 8:03 AM EDT): Take the lowest dose, with least frequency, for shortest time. Remember to take it always with food. Favor topical over oral preparations. On statin therapy 11/08/2024 Assessment & Plan (05/14/2025 8:01 AM EDT): Monitor for muscle tenderness, swelling and weakness Assessment & Plan (11/08/2024 8:10 AM EDT): Monitor for muscle tenderness, swelling and weakness Osteopenia of neck of right femur 11/08/2024 Assessment & Plan (05/14/2025 8:01 AM EDT): Proper calcium vitamin D supplementation, fall and fracture prevention strategy, daily weightbearing exercises encouraged to slow the progression of osteopenia. Assessment & Plan (11/08/2024 8:28 AM EDT): Proper calcium vitamin D supplementation, fall and fracture prevention strategy, daily weightbearing exercises encouraged to slow the progression of osteopenia. Esophageal reflux 01/30/2024 Dysphagia 01/30/2024 Benign neoplasm of stomach 01/30/2024 Dupuytren's disease of both palm and finger without contracture 10/06/2023 Assessment & Plan (05/14/2025 8:01 AM EDT): Use warm packs followed by baby oil or gentle moisturizer in a circular, spiral or motion starting from the proximal crease toward the distal end of fingers. Assessment & Plan (11/08/2024 8:02 AM EDT): [...] Aspirin long-term use 12/29/2018 Assessment & Plan (05/14/2025 8:01 AM EDT): Avoid falls, injuries and cuts. Monitor for excessive bruising and bleeding. Assessment & Plan (11/08/2024 8:03 AM EDT): [...] involving multiple joints 09/01/2017 Assessment & Plan (05/14/2025 8:33 AM EDT): Chronic, intermittent stiffness, pain at [...] over to topicals such as Arnica, Biofreeze, Dutch dream versus medicated patches such as Salonpas or IcyHot patch and Tylenol Call if worse or with questions/problems. Get labs prior to next visit-standing orders in [facility] Another option may be building up the dose of Cymbalta versus adding/switching to gabapentin Assessment & Plan (11/08/2024 8:02 AM EDT): [...] over to topicals such as Arnica, Biofreeze, Dutch dream versus medicated patches such as Salonpas or IcyHot patch and Tylenol Call if worse or with questions/problems. Get labs prior to next visit-standing orders in [facility] Another option may be building up the [...] over to topicals such as Arnica, Biofreeze, Dutch dream versus medicated patches such as Salonpas or IcyHot patch and Tylenol Call if worse or with questions/problems. Get labs prior to next visit-standing orders in [facility] Another option may be building up the [...] labs prior to next visit-standing orders in [facility] Another option may be building up the [...] labs prior to next visit For the qorl-yxz-geexgjf sensation in her fingertips with numbness that [...] labs prior to next visit For the sxbk-yxb-vgedwlv sensation in her fingertips with numbness that [...] labs prior to next visit For the lvyk-vov-vcrbxuf sensation in her fingertips with numbness that [...] deposition disease (CPPD) 09/01/2017 Assessment & Plan (05/14/2025 8:01 AM EDT): Reviewed strategy for preventing and dealing with acute attack in details Assessment & Plan (11/08/2024 8:02 AM EDT): [...] Primary osteoarthritis of left shoulder 12/27/2017 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 Postmenopausal bleeding 10/20/2017 12/0 04/2019 Assessment & Plan (10/26/2017 9:40 AM EST): [...] Patient: Megan Edouard : 1955 Date: 10/08/2022 [facility] current use of non -steroidal anti-inflammatories (NSAID) [...] Encounters Date Type Department Care Team Description 05/14/2025 8:00 AM EDT Office Visit [facility] Rheumatology [address] [place] [address] Anay Bliss MD Primary osteoarthritis involving multiple joints (Primary Dx); Personal history of calcium pyrophosphate deposition disease (CPPD); Osteopenia of neck of right femur; NSAID long-term use; Dupuytren's disease of both palm and finger without contracture; Gastroesophageal reflux disease without esophagitis; Aspirin long-term use; On statin therapy 04/25/2025 11:52 AM EDT - 04/25/2025 11:59 PM EDT Hospital Encounter [facility] Laboratory [address] [place] [address] Tee Oneal MD Discharge Disposition: Home or Self Care 04/25/2025 Transcribe Orders [facility] Laboratory [address] [place] [address] Tee Oneal MD Tension-type headache, not intractable, unspecified chronicity pattern (Primary Dx) 04/16/2025 1:31 PM EDT - 04/16/2025 11:59 PM EDT Hospital Encounter [facility] LABORATORY [address] [place] [phone] David Patel DO Discharge Disposition: Home or Self Care 04/12/2025 Telephone [facility]oped[facility] Medicine [address] [place] [address] Keshia Elam RN preop labs 04/05/2025 10:00 AM EDT - 04/05/2025 11:59 PM EDT Hospital Encounter [facility] LABORATORY [address] [place] [phone] Tee Oneal MD Discharge Disposition: Home or Self Care 04/05/2025 Transcribe Orders [facility]ORATORY [address] [place] [phone] Tee Oneal MD Other vascular headache (Primary Dx) 03/21/2025 11:00 AM EDT Office Visit [facility] [address] [place] [address] David Patel DO Instability of prosthetic shoulder joint, sequela (Primary Dx); Chronic left shoulder pain 03/14/2025 9:15 AM EDT - 03/14/2025 11:59 PM EDT Hospital Encounter [facility]ORATORY [address] [place] [address] Anay Bliss MD Discharge Disposition: Home or Self Care 03/12/2025 Refill [facility] Rheumatology [address] [place] [address] Lanette Perdomo CMA Medication Refill 03/09/2025 10:20 AM EDT - 03/09/2025 11:59 PM EDT Hospital Encounter [facility]ORY [address] [place] [phone] Tee Oneal MD Discharge Disposition: Home or Self Care 03/09/2025 Transcribe Orders [address] [address] Tee Oneal MD Other complicated headache syndrome (Primary Dx); Numbness 02/22/2025 4:54 PM EDT - 02/22/2025 11:59 PM EDT Hospital Encounter [address] [address] David Patel, Discharge Disposition: Home or Self Care 02/14/2025 3:45 PM EDT Office Visit [facility] [address] [place] [phone] David Patel DO Pain (Primary Dx); Instability of prosthetic shoulder joint, sequela; Chronic left shoulder pain 02/14/2025 3:41 PM EDT - 02/14/2025 11:59 PM EDT Hospital Encounter [address] [address] David Patel DO Discharge Disposition: Home or Self Care 02/14/2025 Procedure Pass [address] [address] from Last 3 Months Immunizations Immunization Administration [...] Pulse 89 05/14/2025 7:56 AM EDT Temperature 36.7 C (98 F) 01/30/2024 9:13 AM EDT Respiratory Rate 16 01/30/2024 9:13 AM EDT Oxygen Saturation 99% 05/14/2025 7:5 6 AM EDT Inhaled Oxygen Concentration - - Weight 65.6 kg (144 lb 11.2 oz) 05/14/2025 7:56 AM EDT patient reported Height 160 cm (5' 3 ) 05/14/2025 7:56 AM EDT Body Mass Index 25.63 05/14/2025 7:56 AM EDT Plan of Treatment Upcoming Encounters Date Type Department Care Team (Late st Contact Info) Description 06/20/2025 8:00 AM EDT Office Visit [facility] [address] [place] [address] Cameron Hayward PA-C [address] [place] [address] [place] [phone] [email or web address] 07/16/2025 Procedure Pass OR Admitting Dept - Virtual Department [address] [place] [phone] 07/16/2025 7:30 AM EST Hospital Encounter OR Admitting Dept - Virtual Department [address] [place] [phone] David Patel DO [address] [place] [address] Orthopedics & Sports [facility], [place] [address] 07/16/2025 7:30 AM EST - 07/16/2025 9:55 AM EST Surgery OR Admitting Dept - Virtual Department [address] [place] [phone] David Patel DO [address] [place] [address] Orthopedics Sports [facility], [place] [address] ARTHROPLASTY ANATOMIC INVERSE SHOULDER 08/01/2025 8:00 AM EST Office Visit [facility] [address] [place] [address] Cameron Hayward PA-C [address] [place] [address] [place] [address] [email or web address] 08/29/2025 9:00 AM EST Office Visit [facility] [address] [place] [address] David Patel DO [address] [place] [address] Orthopedics & Sports Medicine, [place] [address] 10/29/2025 8:00 AM EDT Office Visit [facility] Rheumatology [address] [place] [address] Anay Bliss MD [address] [facility], [address] [place] [address] [email or web address] Scheduled Procedures Name Priority Associated Diagnoses [...] 03/24/2022, 07/08/2021, Additional history exists BLOOD PRESSURE 11/11/2025 05/14/2025 CREATININE LEVEL 04/25/2026 04/25/2025, , 04/05/2025, Additional history exists POTASSIUM LEVEL 04/25/2026 04/25/2025, 03/24, 04/05/2025, Additional history exists LIPID PANEL 09/24/2026 09/24/2021 PAP SMEAR 08/24/2029 08/24/2024, 09/24, 10/20/2017 Adult Td,Tdap Booster 01/29/2031 01/29/2021 ZOSTER VACCINES Completed 02/29/2020, 07/13/2019 OSTEOPOROSIS SCREENING INITIAL (ONE-TIME) Completed 06/26/2024, 05/13/2020 SMOKING STATUS SCREENING (Once After 26 Yrs) Completed 05/14/2025 HEPATITIS A VACCINES Aged Out No long [...] this topic Medical Devices Implanted Type Area Firer Portable Boiler Device Identifier Shelf Expiration Date Model / Serial / Lot Lens Lens Bilateral: Eye Mesh Mesh Bladder Left Knee Replacement Right Shoulder Replacement Cement Bone 40gr [employer] - [id number] Implanted:Qty: 1 on 12/27/2017 by David Patel DO at [facility] Left: Shoulder ENCORE 01/20/2019 [id number] / / [id number] Aequalis Perform Glenoid Cortiloc S35 Shoulder 02 Nc - [id number] Implanted:Qty: 1 on 12/27/2017 at [facility] Left: Shoulder [employer] 02/03/2022 [id number] / / [id number] 2b Ascend Flex Standard Ptc Humeral Stem Shoulder 14 - [id number] Implanted:Qty: 1 on 12/27/2017 by David Patel DO at [facility] Left: Shoulder [employer] 09/07/2021 [id number] / / [id number] Low Offset Ascend Flex Stb Humeral Head Onc 22 - [id number] Implanted:Qty: 1 on 12/27/2017 by David Patel DO at [facility] Left: Shoulder [employer] 06/25/2021 [id number] / [id number] / 2b Ascend Flex Standard Ptc Humeral Stem Shoulder 14 - [id number] Implanted:Qty: 1 on 12/27/2017 by David Patel DO at [facility] Left: Shoulder [employer] 09/07/2021 [id number] / [id number] / Procedures Procedure Name Priority Date/Time Associated [...] included. SODIUM 129(L) 133 - 146 mmol/L [facility] POTASSIUM 4.4 3.3 - 5.1 mmol/L [facility] CHLORIDE 91(L) 96 - 108 mmol/L [facility] CO2 27 21 - 35 mmol/L [facility] BUN 14 6 - 19 mg/dL [facility] CREATININE 0.40(L) 0.5 - 1.5 mg/dL [facility] GLUCOSE 84 70 - 99 mg/dL [facility] ALBUMIN 4.4 3.9 - 4.8 g/dL [facility] TOTAL PROTEIN 7.0 6.5 - 8.0 g/dL [facility] CALCIUM 10.0 8.4 - 10.3 mg/dL [facility] ALKALINE PHOSPHATASE 73 39 - 117 U/L [facility] TOTAL BILIRUBIN 0.3 0.0 - 1.2 mg/dL [facility] AST 30 0 - 37 U/L [facility] ALT 28 0 - 40 U/L [facility] GLOBULIN 2.6 1 - 4.8 g/dL [facility] EGFR 106 >59 mL/min/1.7 3m2 [facility] Comment:Estimated glomerular filtration rate calculated using the CKD-EPI refit equation. ANION GAP 15 10 - 20 mmol/L [facility] Blood 04/25/2025 11:5 7 AM EDT 04/25/2025 12:05 PM EDT us Tee Oneal MD LAB BLOOD ORDERABLES Final R esult [address] [address] * (ABNORMAL) CBC (04/25/2025 11:57 AM EDT) Only the most recent of2 resultswithin the time period is included. WBC 4.35 4.00 - 11.00 K/uL [facility] RBC 4.03 4.00 - 5.20 M/uL [facility] HGB 12.8 12.0 - 16.0 g/dL [facility] HCT 37.0 36.0 - 46.0 % [facility] PLT 237 150 - 450 K/uL [facility] MCV 91.8 80.0 - 100.0 fL [facility] MCH 31.8(H) 27.0 - 31.0 pg [facility] MCHC 34.6 32.0 - 36.0 g/dL [facility] RDW 12.8 11.5 - 14.5 % [facility] MPV 9.5 8.4 - 12.0 fL [facility] NRBC 0.00 0.00 /100 WBCs [facility] ABSOLUTE NRBC 0.00 0.00 K/uL [facility] Blood 04/25/2025 11:5 7 AM EDT 04/25/2025 12:05 PM EDT us Tee Oneal MD LAB BLOOD ORDERABLES Final R esult [address] [address] * ABO and Rh (04/16/2025 1:32 PM EDT) ABO/Rh A Positive [facility] Resulting Agency [facility] Blood 04/16/2025 1:32 PM EDT 04/16/2025 1:44 PM EDT us David Patel DO BLOOD BANK TEST ORDERABLES Final Result [address] [address] * Antibody Screen (04/16/2025 1:32 PM EDT) Antibody Screen Negative [facility] Resulting Agency [facility] Blood 04/16/2025 1:32 PM EDT 04/16/2025 1:43 PM EDT David Patel DO BLOOD BANK TEST ORDERABLES Final Result Performing Organization Address City/[facility]/ZIP Co de Phone Number [address] [address] * Hemoglobin A1c (04/16/2025 1:32 PM EDT) HEMOGLOBIN A1C 5.5 4.3 - 5.8 % [facility] Blood 04/16/2025 1:32 PM EDT 04/16/2025 1:44 PM EDT [facility] LAB BLOOD ORDERABLES Final Result Performing Organization Address [facility] de Phone Number [address] [address] * (ABNORMAL) Basic metabolic panel (04/16/2025 1:32 PM EDT) SODIUM 125(L) 133 - 146 mmol/L [facility] CHLORIDE 87(L) 96 - 108 mmol/L [facility] POTASSIUM 4.2 3.3 - 5.1 mmol/L [facility] CO2 26 21 - 35 mmol/L [facility] BUN 8 6 - 19 mg/dL [facility] CREATININE 0.40(L) 0.5 - 1.5 mg/dL [facility] GLUCOSE 111(H) 70 - 99 mg/dL [facility] CALCIUM 9.2 8.4 - 10.3 mg/dL [facility] EGFR 106 >59 mL/min/1.7 3m2 [facility] Comment:Estimated glomerular filtration rate calculated using the CKD-EPI refit equation. ANION GAP 16 10 - 20 mmol/L [facility] Blood 04/16/2025 1:32 PM EDT 04/16/2025 7:07 PM EDT [facility] LAB BLOOD ORDERABLES Final Result Performing Organization Address [facility]/ZIP Co de Phone Number [address] [address] * Sedimentation rate (ESR) (04/05/2025 10:02 AM EDT) Only the most recent of3 resultswithin the time period is included. ESR 3 0 - 30 mm/h [facility] Blood 04/05/2025 10:0 2 AM EDT 04/05/2025 10:08 AM EDT us Anay Bliss MD LAB BLOOD ORDERABLES Fin al Result Performing Organization Address [facility] de Phone Number [address] [address] * (ABNORMAL) CBC and differential (04/05/2025 10:02 AM EDT) Only the most recent of2 resultswithin the time period is included. WBC 4.33 4.00 - 11.00 K/uL [facility] RBC 4.07 4.00 - 5.20 M/uL [facility] HGB 13.0 12.0 - 16.0 g/dL [facility] HCT 37.7 36.0 - 46.0 % [facility] PLT 254 150 - 450 K/uL [facility] MCV 92.6 80.0 - 100.0 fL [facility] MCH 31.9(H) 27.0 - 31.0 pg [facility] MCHC 34.5 32.0 - 36.0 g/dL [facility] RDW 12.8 11.5 - 14.5 % [facility] MPV 9.3 8.4 - 12.0 fL [facility] NRBC 0.00 0.00 /100 WBCs [facility] ABSOLUTE NRBC 0.00 0.00 K/uL [facility] DIFF METHOD Auto [facility] NEUTS 54.6 48.0 - 76.0 % [facility] LYMPHS 33.9 18.0 - 41.0 % [facility] MONOS 8.8 4.0 - 11.0 % [facility] EOS 1.8 0.0 - 5.0 % [facility] BASOS 0.7 0.0 - 1.5 % [facility] Granulocytes, immature (%) 0.2 0.0 - 0.9 % [facility] ABSOLUTE NEUTS 2.36 1.92 - 7.60 K/uL [facility] ABSOLUTE LYMPHS 1.47 0.72 - 4.10 K/uL [facility] ABSOLUTE MONOS 0.38 0.16 - 1.10 K/uL [facility] ABSOLUTE EOS 0.08 0.00 - 0.50 K/uL [facility] ABSOLUTE BASOS 0.03 0.00 - 0.15 K/uL [facility] Granulocytes, immature 0.01 0.00 - 0.09 K/uL [facility] Blood 04/05/2025 10:0 2 AM EDT 04/05/2025 10:08 AM EDT us Anay Bliss MD LAB BLOOD ORDERABLES Fin al Result [address] [address] * C-Reactive Protein (04/05/2025 10:02 AM EDT) Only the most recent of2 resultswithin the time period is included. C REACTIVE PROTEIN <3.0 0.0 - 4.0 mg/L [facility] Blood 04/05/2025 10:0 2 AM EDT 04/05/2025 10:08 AM EDT Anay Bliss MD LAB BLOOD ORDERABLES Fin al Result [address] [address] * CT SHOULDER WITHOUT CONTRAST (LEFT) (02/22/2025 [...] moderate fatty atrophy of the subscapularis muscle. us [facility] DO IMG CT EXTREMITY Final Resu lt * XR SHOULDER 2 VIEWS (LEFT) (02/14/2025 3:50 PM EDT) Narrative SYSTEMGENERATED, DOCUMENTATION - 02/14/2025 3:50 PM EDT This image report has been auto-finalized and has not been read by a Radiologist. Interpretation has been included in the provider encounter note for this date of service. us [facility] DO IMG XR UPPER EXTREMITY Ria l Result * Pap Test (08/24/2024 12:00 AM EST) 08/24/2024 08/25/2024 9:0 9 AM EST Narrative SEE NARRATIVE - 08/29/2024 4:20 [place] [address] Sueding And Buffing Machine Operator: Elmer Valdez MD BAKERY TECHNICIAN Cytology Report FINAL DIAGNOSIS A. PAP SMEAR (THIN PREP) CE: SPECIMEN ADEQUACY: Satisfactory for evaluation; transformation zone present. INTERPRETATION: NEGATIVE FOR INTRAEPITHELIAL LESION OR MALIGNANCY. Atrophy. This specimen was analyzed by the automated ThinPrep Imaging System (NEBOTRADE Perla.) and the selected tadeo were reviewed by a gripper installer. Electronically Signed Out By: ARMEN Mcgarry(ASCP) ARMEN [...] : 1955 (Age: 68) Sex: F Institution: [facility] Location: [facility] Date of Collection: 08/24/2024 Date of [...] By: ANAY BLISS I Indications: Postmenopausal Scanner: GIROPTIC A with serial# of [id number] located at [facility] Bone Density Scan (DXA) 06/26/24 Details [...] -2.5), or Osteoporosis (T-score <= -2.5). At [facility], T-scores are compared to peak bone [...] By: ANAY BLISS I Indications: Postmenopausal Scanner: GIROPTIC A with serial# of [id number] located at [facility] Bone Density Scan (DXA) 06/26/24 Details [...] -2.5), or Osteoporosis (T-score <= -2.5). At [facility], T-scores are compared to peak bone [...] (09/24/2021 8:17 AM EST) HDL 96 mg/dL [facility] Comment: Interpretation <40 mg/dL: Low HDL cholesterol (major risk factor for CHD) Greater than or equal to 60 mg/dL: High HDL cholesterol ( negative risk factor for CHD) HDL - cholesterol is affected by a number of factors, e.g. smoking, excerise, hormones, sex and age. CHOLESTEROL 228 0 - 240 mg/dL [facility] TRIGLYCERIDES 82 30 - 160 mg/dL [facility] LDL 116 50 - 129 mg/dL [facility] Comment: LDL levels in terms of risk for coronary heart disease: <100 mg/dL: Optimal 100-129 mg/dL: Near or above optimal 130-159 mg/dL: Borderline high 160-189 mg/dL: High >190 mg/dL: Very High CARDIAC RISK RATIO 2.4(L) 3.3 - 4.4 C [facility] Blood 09/24/2021 8:17 AM EST 09/24/2021 8:18 AM EST Demetrio Gonzales MD LAB BLOOD ORDERABLES Fi nal Result Performing Organization Address [facility] Co de Phone Number [address] [address] * (ABNORMAL) Valproic acid (09/24/2021 8:10 AM EST) VALPROIC ACID 41.7(L) 50.0 - 100.0 ug/mL [facility] Blood 09/24/2021 8:10 AM EST 09/24/2021 8:14 AM EST Demetrio Gonzales MD LAB BLOOD ORDERABLES Fi nal Result Performing Organization Address [facility] Co de Phone Number [address] [address] * BI MAMMOGRAM SCREENING WITH TOMOSYNTHESIS WITH [...] Maintenance Insurance MEDICARE PART A & B [employer] MEDICARE SUPPLEMENT MEDICARE PART A & B [employer] MEDICARE SUPPLEMENT MEDICARE PART A & B [employer] MEDICARE SUPPLEMENT B MEDICARE PART A & B H[employer]AN MEDICARE SUPPLEMENT B MEDICARE PART A & B [employer] MEDICARE SUPPLEMENT MEDICARE PART A & B [employer] MEDICARE SUPPLEMENT [address] Advance Directives For more information, please contact: [phone] (9AM - 5PM [place]/[facility], Wednesday-Wednesday) * Full Code (Latest Code Status on File) Date Activated Date Inactivated Comments 02/05/2023 10:00 AM Question Answer Comments Code Status Confirmed With: Patient * Full Code (Presumed) Date Activated Date Inactivated Comments 12/27/2017 12:07 PM 12/28/2017 1:18 PM * Full Code (Presumed) Date Activated Date Inactivated Comments 12/27/2017 6:18 AM 12/27/2017 12:07 PM Care Teams Manager Of Employee Relations Relationship Specialty Start Date End Date Lucius Hannon MD [address] [place] [address] PCP - General Internal Medicine 11/27/24 See Wan MD [address] [place] [address] [email or web address] Historical LMR Provider 06/09/17 Anay Bliss MD [address] [facility], [address] [place] [address] Historical LMR Provider 06/09/17 David Patel DO [address] [place] [address] Orthopedics & Sports Medicine, [place] [address] Historical LMR Provider 06/09/17 Additional Source Comments The information contained in this document represents components of the legal health record. It is not the complete legal health record.[facility]
--- OUTSIDE RECORDS SUMMARY | 2025-05-15 09:37 | XMS_ITS | Encounter Summary ---
Author Organization [facility] Address [address] [place] [address] Phone Care Team Providers Care Fbi Special Agent Name Role Phone See Wan MD Unavailable Anay Bliss MD Unavailable Tammi Corral PA-C Unavailable [phone] David Patel DO Unavailable [phone] Demetrio Gonzales MD Unavailable [phone] Linette Echeverria PA-C Unavailable [phone] Cirilo Bernard MD Unavailable [phone] Akil Jenkins MD Unavailable [phone] Demetrio Gonzales MD Primary Care Provider Lucius Hannon MD Primary Care Provid er Encounter Details Date Type Department Care Team (Late st Contact Info) Description 01/29/2021 Procedure Pass [facility], Ct Scan - [address] [id number] Social History Tobacco Use Types Packs/Day Years [...] 8:31 AM EDT Latasha Quiroga RN * [place] Suicide Severity Rating Scale (Screener/Recent Self-Report) Question [...] Description 06/20/2025 8:00 AM EDT Office Visit [facility] Orthopedics & Sports Medicine [address] [place] [address] Cameron Hayward PA-C [address] [place] [address] [place] [address] [email or web address] 07/16/2025 Procedure Pass [place] Admitting Dept - Virtual Department [address] [place] [address] 07/16/2025 7:30 AM EST Hospital Encounter OR Admitting Dept - Virtual Department [address] [place] [address] 14[address] David Patel DO [address] [place] [address] Orthopedics & Sports Medicine, [facility] [place] [address] 07/16/2025 7:30 AM EST - 07/16/2025 9:55 AM EST Surgery OR Admitting Dept - Virtual Department [address] [place] [address] David Patel DO [address] [place] [address] Orthoped[facility] [place] [place] [address] ARTHROPLASTY ANATOMIC INVERSE SHOULDER 08/01/2025 8:00 AM EST Office Visit [facility] Orthopedics & Sports Medicine [address] [place] [address] Cameron Hayward PA-C [address] [place] [address] [place] [address] [email or web address] 08/29/2025 9:00 AM EST Office Visit [facility] Orthopedics & Sports Medicine [address] [place] [address] David Patel DO [address] [place] [address] Orthopedics & Sports Medicine, [facility] [place] [address] 10/29/2025 8:00 AM EDT Office Visit [facility] Rheumatology [address] [place] [address] Anay Bliss MD [address] [place] [address], [address] [place] [address] [email or web address] Scheduled Procedures Name Priority Associated Diagnoses Date/Ti me ARTHROPLASTY ANATOMIC INVERSE SHOULDER Instability of prosthetic shoulder joint, sequela 07/16/2025 7:30 AM EST documented as of this encounter Visit Diagnoses Not on filedocumented in this encounter Care Teams Fbi Special Agent Relationship Specialty Start Date End Date Demetrio Gonzales MD [address] [place] [address] PCP - General 06/10/17 11/26/24 Lucius Hannon MD [address] [place] [address] PCP - General Internal Medicine 11/27/24 See Wan MD [address] [place] [address] [email or web address] Historical LMR Provider 06/09/17 Anay Bliss MD [address] [place] [address], [address] [place] [address] Historical LMR Provider 06/09/17 Tammi Corral PA-C [address] [place] [address] Orthopedics Sports [facility], [place] [address] Historical LMR Provider 06/09/17 08/30/21 David Patel DO [address] [place] [address] Orthopedics Sports [facility], [place] [address] Historical LMR Provider 06/09/17 Demetrio Gonzales MD [address] [place] [address] [place] [address] Historical LMR Provider 06/09/17 Linette Patel PA-C [address] [place] [address] Orthopedics Sports [facility], [place] [address] Historical LMR Provider 06/09/17 08/30/21 Cirilo Bernard MD [address] [place] [address], [address] [place] [address] Historical LMR Provider 06/09/17 08/30/21 Akil Jenkins MD [address] [place] [address] Historical LMR Provider 06/09/17 2 documented as of this encounter Additional Source Comments The information contained in this document represents components of the legal health record. It is not the complete legal health record.[facility]
== END 2025-05-15 09:16 | disposition home or self-care (01) ==
PROVIDERS: PCP Student in an Organized Health Care Education/Training Program; Visit Provider Internal Medicine
DX: I10 Essential (primary) hypertension (principal); Z01.810 Encounter for preprocedural cardiovascular examination
CPT/HCPCS: 99213

== ENCOUNTER → 2025-05-15 08:36 | Outpatient (BNVA) | payer MEDICARE, OTHER, SELFPAY | PROVIDERS: PCP Internal Medicine; Visit Provider Internal Medicine | DX: Z01.810 Encounter for preprocedural cardiovascular examination (principal); I10 Essential (primary) hypertension | CPT/HCPCS: 99212 ==

== ENCOUNTER 2025-06-14 10:37 | Outpatient (REF) | payer MEDICARE, OTHER, SELFPAY ==
--- OUTSIDE RECORDS SUMMARY | 2021-05-31 13:10 | XMS_ITS | Encounter Summary ---
Author Organization [facility] Address [address] [place] [address] Phone Care Team Providers Care Food Preparation Supervisor Name Role Phone See Wan MD Unavailable Anay Bliss MD Unavailable [phone] Tammi Corral PA-C Unavailable [phone] David Patel DO Unavailable [phone] Demetrio Gonzales MD Unavailable Linette Echeverria PA-C Unavailable Cirilo Bernard MD Unavailable [phone] Akil Jenkins MD Unavailable [phone] Demetrio Gonzales MD Primary Care Provider Encounter Details Date Type Department Care Team (Late st Contact Info) Description 05/31/2021 1:10 PM EDT Hospital Encounter [facility] Urgent Care [address] [place] [address] Belia Quintero FNP [address] [place] [address] [email or web address] Social History Tobacco Use Types Packs/Day Years [...] 10:22 PM EDT Prashant Gutiérrez RN * [place] Suicide Severity Rating Scale (Screener/Recent Self-Report) Question [...] Description 06/20/2025 8:00 AM EDT Office Visit [facility] Orthopedics & Sports Medicine [address] [place] [address] Cameron Hayward PA-C [address] [place] [address] [place] [address] [email or web address] 07/13/2025 8:00 AM EST Pre-Admission Testing Pre Procedure Evaluation [address] [place] [address] David Patel DO [address] [place] [address] Orthopedics & Sports Medicine, [place] [address] 07/16/2025 Procedure Pass OR Admitting Dept - Virtual Department [address] [place] [address] 07/16/2025 7:30 AM EST Hospital Encounter OR Admitting Dept - Virtual Department [address] [place] [address] David Patel DO 4 [facility] Orthopedics & Sports [facility], [place] [address] 07/16/2025 7:30 AM EST - 07/16/2025 9:55 AM EST Surgery OR Admitting Dept - Virtual Department [address] [place] [address] David Patel DO 4 [facility] Orthopedics & Sports [facility], [place] [address] ARTHROPLASTY ANATOMIC INVERSE SHOULDER 08/01/2025 8:00 AM EST Office Visit [facility] Orthopedics & Sports Medicine [address] [place] [address] Cameron Hayward PA-C [address] [place] [address] [place] [address] [email or web address] 08/29/2025 9:00 AM EST Office Visit [facility] Orthopedics & Sports Medicine [address] [place] [address] David Patel DO 4 [facility] Orthopedics Sports [facility], [place] [address] 10/29/2025 8:00 AM EDT Office Visit [facility] Rheumatology 22 [place] [address] Anay Bliss MD [address] [place] [address], [address] [place] [address] [email or web address] Scheduled Procedures Name Priority Associated Diagnoses [...] theSTT joint. IMPRESSION: No fracture or dislocation. 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 IMG XR UPPER EXTREMITY Ria l Result documented in this encounter Visit Diagnoses Not on filedocumented in this encounter Care Teams Food Preparation Supervisor Relationship Specialty Start Date End Date Demetrio Gonzales MD [address] [place] [address] [place] [address] PCP - General 06/10/17 11/26/24 See Wan MD [address] [place] [address] [email or web address] Historical LMR Provider 06/09/17 Anay Bliss MD [address] [place] [address], [address] [place] [address] [email or web address] Historical LMR Provider 06/09/17 Tammi Corral PA-C [address] [place] [address] Orthopedics Sports [facility], [place] [address] Historical LMR Provider 06/09/17 08/30/21 David Patel DO [address] [place] [address] Orthopedics Sports [facility], [place] [address] Historical LMR Provider 06/09/17 Demetrio Gonzales MD [address] [place] [address] [facility] [place] [address] Historical LMR Provider 06/09/17 Linette Patel PA-C [address] [place] [address] Orthopedics Sports [facility], [place] [address] Historical LMR Provider 06/09/17 08/30/21 Cirilo Bernard MD [address] [place] [address], [address] [place] [address] [email or web address] Historical LMR Provider 06/09/17 08/30/21 Akil Jenkins MD [address] [place] [address] Historical LMR Provider 06/09/17 2 documented as of this encounter Additional Source Comments The information contained in this document represents components of the legal health record. It is not the complete legal health record.[facility]
--- OUTSIDE RECORDS SUMMARY | 2021-06-04 15:30 | XMS_ITS | Encounter Summary ---
Author Organization [facility] Address [address] [place] [address] Phone Care Team Providers Care Sonar Watchstander Name Role Phone See Wan MD Unavailable [phone] Anay Bliss MD Unavailable Tammi Corral PA-C Unavailable [phone] David Patel DO Unavailable [phone] Demetrio Gonzales MD Unavailable Linette Echeverria PA-C Unavailable Cirilo Bernard MD Unavailable Akil Jenkins MD Unavailable [phone] Demetrio Gonzales MD Primary Care Provider Encounter Details Date Type Department Care Team (Late st Contact Info) Description 06/04/2021 3:30 PM EDT Hospital Encounter [facility] [address] [place] [address] Ginny Pacheco PA 12 [place] [address] [email or web address] Social History Tobacco Use Types Packs/Day Years [...] 10:22 PM EDT Prashant Gutiérrez RN * [place] Suicide Severity Rating Scale (Screener/Recent Self-Report) Question [...] Description 06/20/2025 8:00 AM EDT Office Visit [facility] Orthopedics & Sports Medicine [address] [place] [address] Cameron Hayward PA-C [address] [place] [address] [place] [address] [email or web address] 07/13/2025 8:00 AM EST Pre-Admission Testing Pre Procedure Evaluation 30 [place] [address] David Patel DO [address] [place] [address] Orthopedics & Sports Medicine, [place] [address] 07/16/2025 Procedure Pass OR Admitting Dept - Virtual Department [address] [place] [address] 07/16/2025 7:30 AM EST Hospital Encounter OR Admitting Dept - Virtual Department [address] [place] [address] David Patel DO 4 [facility] Orthopedics Sports [facility], [place] [address] 07/16/2025 7:30 AM EST - 07/16/2025 9:55 AM EST Surgery OR Admitting Dept - Virtual Department [address] [place] [address] David Patel DO 4 [facility] Orthopedics & Sports [facility], [place] [address] ARTHROPLASTY ANATOMIC INVERSE SHOULDER 08/01/2025 8:00 AM EST Office Visit [facility] Orthopedics & Sports Medicine [address] [place] [address] Cameron Hayward PA-C [address] [place] [address] [place] [address] [email or web address] 08/29/2025 9:00 AM EST Office Visit [facility] Orthopedics & Sports Medicine [address] [place] [address] David Patel DO 4 [facility] Orthopedics Sports [facility], [place] [address] 10/29/2025 8:00 AM EDT Office Visit [facility] Rheumatology [address] [place] [address] Anay Bliss MD [address] [place] [address], [address] [place] [address] [email or web address] Scheduled Procedures Name Priority Associated [...] on filedocumented in this encounter Care Teams Sonar Watchstander Relationship Specialty Start Date End Date Demetrio Gonzales MD [address] [place] [address] [place] [address] PCP - General 06/10/17 11/26/24 See Wan MD [address] [place] [address] [email or web address] Historical LMR Provider 06/09/17 Anay Bliss MD [address] [place] [address], [address] [place] [address] [email or web address] Historical LMR Provider 06/09/17 Tammi Corral PA-C [address] [place] [address] [place] [address] Historical LMR Provider 06/09/17 08/30/21 David Patel DO [address] [place] [address] [place] [address] Historical LMR Provider 06/09/17 Demetrio Gonzales MD [address] [place] [address] [place] [address] Historical LMR Provider 06/09/17 2 Linette Echeverria PA-C [address] [place] [address] Orthopedics Sports [facility], [place] [address] Historical LMR Provider 06/09/17 08/30/21 Cirilo Bernard MD [address] [place] [address], [address] [place] [address] [email or web address] Historical LMR Provider 06/09/17 08/30/21 Akil Jenkins MD [address] [place] [address] Historical LMR Provider 06/09/17 2 documented as of this encounter Additional Source Comments The information contained in this document represents components of the legal health record. It is not the complete legal health record.[facility]
--- OUTSIDE RECORDS SUMMARY | 2021-10-18 10:29 | XMS_ITS | Encounter Summary ---
Author Organization [facility] Address [address] [place] [address] Phone Care Team Providers Care Poultry Offal Icer Name Role Phone See Wan MD Unavailable [phone] Anay Bliss MD Unavailable [phone] David Patel DO Unavailable [phone] Demetrio Gonzales MD Primary Care Provider Encounter Details Date Type Department Care Team (Late st Contact Info) Description 10/18/2021 9:29 AM EST Hospital Encounter [facility] Urgent Care [address] [place] [address] [phone] Latoya Miller, FRAME ASSEMBLER [address] [place] [address] [email or web address] Social History Tobacco Use Types Packs/Day Years [...] Risk Indicated 02/05/2023 10:22 PM EDT Prashant Gutiérrez, SHABANA * [place] Suicide Severity Rating Scale (Screener/Recent Self-Report) Question [...] Description 06/20/2025 8:00 AM EDT Office Visit [facility] Orthopedics & Sports Medicine [address] [place] [address] Cameron Hayward PA-C [address] [place] [address] [place] [address] [email or web address] 07/13/2025 8:00 AM EST Pre-Admission Testing Pre Procedure Evaluation [address] [place] [address] David Patel DO [address] [place] [address] Orthopedics & Sports Medicine, [facility] [place] [address] 07/16/2025 Procedure Pass OR Admitting Dept - Virtual Department [address] [place] [address] 07/16/2025 7:30 AM EST Hospital Encounter OR Admitting Dept - Virtual Department [address] [place] [address] David Patel DO [address] [place] [address] Orthoped[facility] [place] [address] 07/16/2025 7:30 AM EST - 07/16/2025 9:55 AM EST Surgery OR Admitting Dept - Virtual Department [address] [place] [address] David Patel DO [address] [place] [address] Orth[facility] [address] ARTHROPLASTY ANATOMIC INVERSE SHOULDER 08/01/2025 8:00 AM EST Office Visit [facility] Orthopedics & Sports Medicine [address] [place] [address] Cameron Hayward PA-C [address] [place] [address] [place] [address] [email or web address] 08/29/2025 9:00 AM EST Office Visit [facility] Orthopedics & Sports Medicine [address] [place] [address] David Patel DO [address] [place] [address] Orthopedics & Sports [facility] [place] [address] 10/29/2025 8:00 AM EDT Office Visit [facility] Rheumatology [address] [place] [address] [place] [address] Anay Bliss MD [address] [place] [address], [address] [place] [address] [email or web address] Scheduled Procedures Name Priority Associated [...] silhouetteis normal. IMPRESSION: No displaced rib fracture. us Latoya Miller FRAME ASSEMBLER IMG XR CHEST Final R esult documented in this encounter Visit Diagnoses Not on filedocumented in this encounter Care Teams Poultry Offal Icer Relationship Specialty Start Date End Date Demetrio Gonzales MD [address] [place] [address] [place] [address] PCP - General 06/10/17 11/26/24 See Wan MD [address] [place] [address] [email or web address] Historical LMR Provider 06/09/17 Anay Bliss MD [address] [place] [address], [address] [place] [address] [email or web address] Historical LMR Provider 06/09/17 David Patel DO [address] [place] [address] Orthopedics & Sports Medicine, [place] [address] [email or web address] Historical LMR Provider 06/09/17 documented as of this encounter Additional Source Comments The information contained in this document represents components of the legal health record. It is not the complete legal health record.[facility]
--- OUTSIDE RECORDS SUMMARY | 2024-01-30 09:35 | XMS_ITS | Encounter Summary ---
Author Organization [facility] Address [address] [place] [address] [place] [address] Phone Care Team Providers Care Astronaut Mission Specialist Name Role Phone See Wan MD Unavailable Anay Bliss MD Unavailable [phone] David Patel DO Unavailable [phone] Demetrio Gonzales MD Primary Care Provider Encounter Details Date Type Department Care Team (Late st Contact Info) Description 01/30/2024 9:35 AM EDT Hospital Encounter [facility] [address] [place] [address] Maira Bolden CNP 12 [place] [address] [email or web address] Social History Tobacco Use Types Packs/Day Years [...] Description 06/20/2025 8:00 AM EDT Office Visit [facility] [address] [place] [address] Cameron Hayward PA-C [address] [place] [address] [place] [address] [email or web address] 07/13/2025 8:00 AM EST Pre-Admission Testing Pre Procedure Evaluation [address] [place] [address] David Patel DO 4 [facility] [place] [address] 07/16/2025 Procedure Pass OR Admitting Dept - Virtual Department [address] [place] [address] 07/16/2025 7:30 AM EST Hospital Encounter OR Admitting Dept - Virtual Department [address] [place] [phone] David Patel DO 4 [facility] [place] [address] 07/16/2025 7:30 AM EST - 07/16/2025 9:55 AM EST Surgery OR Admitting Dept - Virtual Department [address] [place] [address] David Patel DO 4 [facility] [place] [place] [address] ARTHROPLASTY ANATOMIC INVERSE SHOULDER 08/01/2025 8:00 AM EST Office Visit [facility] [address] [place] [address] Cameron Hayward PA-C [address] [place] [address] [place] [address] [email or web address] 08/29/2025 9:00 AM EST Office Visit [facility] [address] [place] [address] David Patel DO [address] [place] [address] Orthopedics & Sports Medicine, [place] [address] 10/29/2025 8:00 AM EDT Office Visit [facility] [address] [place] [address] Anay Bliss MD 22 [facility], [address] [place] [address] [email or web address] Scheduled Procedures Name Priority Associated Diagnoses Date/Ti [...] effusion. IMPRESSION: No fracture or dislocation. ATTESTATION: I, Markus Mansfield as teaching physician, have reviewed theimages for this case and if necessary edited the report originally createdby Geri Givens. Maira Bolden PORTER LUGGAGE IMG XR LOWER EXTREMITY Ria l Result documented in this encounter Visit Diagnoses Not on filedocumented in this encounter Care Teams Astronaut Mission Specialist Relationship Specialty Start Date End Date Demetrio Gonzales MD [address] [place] [address] [place] [address] PCP - General 06/10/17 11/26/24 See Wan MD [address] [place] [address] [email or web address] Historical LMR Provider 06/09/17 Anay Bliss MD 22 [facility], [address] [place] [address] [email or web address] Historical LMR Provider 06/09/17 David Patel DO [address] [place] [address] Orthoped[facility] Sports Medicine, [place] [address] [email or web address] Historical LMR Provider 06/09/17 documented as of this encounter Additional Source Comments The information contained in this document represents components of the legal health record. It is not the complete legal health record.[facility]
--- NOTE | ~2025-06-14 | US_ITS ---
EXAMINATION: MM DIAGNOSTIC DIGITAL BREAST TOMOSYNTHESIS, RIGHT Right limited ultrasound. CLINICAL INFORMATION: Call back from screening for asymmetry in the lateral right breast posterior depth on CC view. COMPARISON: Mammography: Priors on PACS. TECHNIQUE: Digital breast tomosynthesis is performed in both the craniocaudal and mediolateral oblique views along with computer-aided detection (CAD). Synthesized 2D images are generated from the tomosynthesis. FINDINGS: There are scattered areas of fibroglandular density. Asymmetry in the lateral right breast posterior depth on CC view does not persist on additional imaging projections and appearance is similar to CC view dating back to 2018. There are no significant masses, abnormal calcifications, or other abnormalities. Targeted color Doppler ultrasound scanning in the lateral right breast from 7-11 o'clock demonstrates normal fibronodular breast tissue. There is no sonographic abnormal finding. US/US Breast RT Limited Mamm Only IMPRESSION: No mammographic evidence of malignancy. ASSESSMENT: BI-RADS Category 1: Negative RECOMMENDATION: 1 year F/U Results were provided to the patient at time of visit by the technologist. This patient's information was entered into a reminder system with a target due date for their next mammogram. Electronically signed by: Liat Mixon DO 06/14/2025 11:42 AM EDT
--- OUTSIDE RECORDS SUMMARY | 2025-06-14 12:51 | XMS_ITS | Encounter Summary ---
Author Organization [facility] Address [address] [place] [address] Phone Care Team Providers Care Tax Form Preparer Name Role Phone See Wan MD Unavailable Anay Bliss MD Unavailable [phone] David Patel DO Unavailable [phone] Demetrio Gonzales MD Primary Care Provider Lucius Hannon MD Primary Care Provid er Encounter Details Date Type Department Care Team (Late st Contact Info) Description 09/10/2022 Ancillary Orders [facility], X-Ray - [address] [address] Yusuf Olmos, DO [address] [place] [address] [email or web address] Gluteal tendinitis, left hip Social History Tobacco [...] Description 06/20/2025 8:00 AM EDT Office Visit [facility] Orthopedics & Sports Medicine [address] [place] [address] Cameron Hayward PA-C [address] [place] [address] [place] [address] [email or web address] 07/13/2025 8:00 AM EST Pre-Admission Testing Pre Procedure Evaluation [address] [place] [address] David Patel DO 4 [facility] Orthopedics & Sports [facility], [place] [address] 07/16/2025 Procedure Pass [place] Admitting Dept - Virtual Department [address] [place] [address] 07/16/2025 7:30 AM EST Hospital Encounter OR Admitting Dept - Virtual Department [address] [place] [address] David Patel DO [address] [place], [place] [address]s Sports [facility], [place] [address] 07/16/2025 7:30 AM EST - 07/16/2025 9:55 AM EST Surgery OR Admitting Dept - Virtual Department [address] [place] [address] David Patel DO 4 [facility] Sports [facility], [place] [address] ARTHROPLASTY ANATOMIC INVERSE SHOULDER 08/01/2025 8:00 AM EST Office Visit [facility] Orthopedics & Sports Medicine [address] [place] [address] Cameron Hayward PA-C [address] [place] [address] [place] [address] [email or web address] 08/29/2025 9:00 AM EST Office Visit [facility] Orthopedics & Sports Medicine [address] [place] [address] David Patel DO [address] [place] [address] Orthopedics & Sports Medicine, [place] [address] 10/29/2025 8:00 AM EDT Office Visit [facility] Rheumatology [address] [place] [address] Anay Bliss MD [address] [place] [address], [address] [place] [address] [email or web address] Scheduled Procedures Name Priority Associated [...] trochanters. Partially visualized lumbar spine degenerative change. Yusuf Olmos DO IMG XR PELVIS Final Result documented in this encounter Visit Diagnoses Diagnosis Gluteal tendinitis, left hip Gluteal tendinitis, left hip Instability of prosthetic shoulder joint, sequela documented in this encounter Care Teams Tax Form Preparer Relationship Specialty Start Date End Date Demetrio Gonzales MD [address] [place] [address] PCP - General 06/10/17 11/26/24 Lucius Hannon MD [address] [place] [address] [place] [address] PCP - General Internal Medicine 11/27/24 See Wan MD [address] [place] [address] [email or web address] Historical LMR Provider 06/09/17 Anay Bliss MD [address] [place] [address], [address] [place] [address] Historical LMR Provider 06/09/17 David Patel DO [address] [place] [address] Orthopedics & Sports Medicine, [place] [address] [email or web address] Historical LMR Provider 06/09/17 documented as of this encounter Additional Source Comments The information contained in this document represents components of the legal health record. It is not the complete legal health record.[facility]
--- OUTSIDE RECORDS SUMMARY | 2025-06-14 12:52 | XMS_ITS | Encounter Summary ---
Author Organization [facility] Address [address] [place] [address] Phone Care Team Providers Care Verification Specialist Name Role Phone See Wan MD Unavailable [phone] Anay Bliss MD Unavailable Tammi Corral PA-C Unavailable [phone] David Patel DO Unavailable [phone] Demetrio Gonzales MD Unavailable [phone] Linette Echeverria PA-C Unavailable Cirilo Bernard MD Unavailable Akil Jenkins MD Unavailable [phone] Demetrio Gonzales MD Primary Care Provider Lucius Hannon MD Primary Care Provid er Encounter Details Date Type Department Care Team (Latest Contact Info) Description 02/13/2019 Transcribe Orders [facility] [address] [place] [address] Tee Oneal MD [address] [place] [address], [address] [place] [address] [email or web address] Numbness (Primary Dx) Social History Tobacco [...] Description 06/20/2025 8:00 AM EDT Office Visit [facility] Orthopedics & Sports Medicine [address] [place] [address] Cameron Hayward PA-C [address] [place] [address] [place] [address] [email or web address] 07/13/2025 8:00 AM EST Pre-Admission Testing Pre Procedure Evaluation [address] [place] [address] David Patel DO 4 [facility] Orthopedics & Sports [place], [place] [address] 07/16/2025 Procedure Pass OR Admitting Dept - Virtual Department [address] [place] [address] 07/16/2025 7:30 AM EST Hospital Encounter OR Admitting Dept - Virtual Department [address] [place] [address] David Patel DO 4 [facility] Orthopedics & Sports [facility] [place] [address] 07/16/2025 7:30 AM EST - 07/16/2025 9:55 AM EST Surgery OR Admitting Dept - Virtual Department [address] [place] [address] David Patel DO 4 [facility] Orthopedics & Sports [facility] [place] [address] ARTHROPLASTY ANATOMIC INVERSE SHOULDER 08/01/2025 8:00 AM EST Office Visit [facility] Orthopedics & Sports Medicine [address] [place] [address] Cameron Hayward PA-C [address] [place] [address] [place] [address] [email or web address] 08/29/2025 9:00 AM EST Office Visit [facility] Orthopedics & Sports Medicine [address] [place] [address] David Patel DO [address] [place] [address] Orthopedics & Sports Medicine, [facility] [place] [address] 10/29/2025 8:00 AM EDT Office Visit [facility] Rheumatology [address] [place] [address] Anay Bliss MD [address] [place] [address], [address] [place] [address] [email or web address] Scheduled Procedures Name Priority Associated Diagnoses Date/Ti me ARTHROPLASTY ANATOMIC INVERSE SHOULDER Instability of prosthetic shoulder joint, sequela 07/16/2025 7:30 AM EST documented as of this encounter Results * (ABNORMAL) Glucose (02/13/2019 8:42 AM EDT) GLUCOSE 111(H) 70 - 99 mg/dL [facility] Blood 02/13/2019 8:42 AM EDT 02/13/2019 9:20 AM EDT us Tee Oneal MD LAB BLOOD ORDERABLES Final R esult [facility] [address] [place] [address] documented in this encounter Visit Diagnoses Diagnosis Numbness- Primary Disturbance of skin sensation Instability of prosthetic shoulder joint, sequela documented in this encounter Care Teams Verification Specialist Relationship Specialty Start Date End Date Demetrio Gonzales MD [address] [place] [address] [place] [address] PCP - General 06/10/17 11/26/24 Lucius Hannon MD [address] [place] [address] [place] [address] PCP - General Internal Medicine 11/27/24 See Wan MD [address] [place] [address] [email or web address] Historical LMR Provider 06/09/17 Anay Bliss MD [address] [place] [address], [address] [place] [address] [email or web address] Historical LMR Provider 06/09/17 Tammi Corral PA-C [address] [place] [address] Orthopedics Sports [facility], [place] [address] Historical LMR Provider 06/09/17 08/30/21 David Patel DO [address] [place] [address] Orthopedics & Sports [facility], [place] [address] Historical LMR Provider 06/09/17 Demetrio Gonzales MD [address] [place] [address] [place] [address] Historical LMR Provider 06/09/17 2 Linette Echeverria PA-C [address] [place] [address] Orthopedics [facility] Sports Medicine, [place] [address] Historical LMR Provider 06/09/17 08/30/21 Cirilo Bernard MD [address] [place] [address] Historical LMR Provider 06/09/17 08/30/21 Akil Jenkins MD [address] [place] [address] Historical LMR Provider 06/09/17 2 documented as of this encounter Additional Source Comments The information contained in this document represents components of the legal health record. It is not the complete legal health record.[facility]
--- OUTSIDE RECORDS SUMMARY | 2025-06-14 12:52 | XMS_ITS | Encounter Summary ---
Author Organization [facility] Address [address] [place] [address] [place] [address] Phone Care Team Providers Care Communications Controller Name Role Phone See Wan MD Unavailable [phone] Anay Bliss MD Unavailable [phone] David Patel DO Unavailable [phone] Demetrio Gonzales MD Primary Care Provider Lucius Hannon MD Primary Care Provid er Encounter Details Date Type Department Care Team (Late st Contact Info) Description 02/05/2023 Procedure Pass OR Admitting Dept - Virtual Department [address] [place] [address] Social History Tobacco Use Types Packs/Day Years [...] 10:22 PM EDT Prashant Gutiérrez, SHABANA * [place] Suicide Severity Rating Scale (Screener/Recent Self-Report) Question [...] Description 06/20/2025 8:00 AM EDT Office Visit [facility] Orthopedics & Sports Medicine [address] [place] [address] Cameron Hayward PA-C [address] [place] [address] [place] [address] [email or web address] 07/13/2025 8:00 AM EST Pre-Admission Testing Pre Procedure Evaluation [address] [place] [address] David Patel DO [address] [place] [address] Orthopedics & Sports [place] [place] [address] 07/16/2025 Procedure Pass OR Admitting Dept - Virtual Department [address] [place] [address] 07/16/2025 7:30 AM EST Hospital Encounter OR Admitting Dept - Virtual Department [address] [place] [address] David Patel DO [address] [place] [address] Orth[facility] [place] [address] 07/16/2025 7:30 AM EST - 07/16/2025 9:55 AM EST Surgery OR Admitting Dept - Virtual Department [address] [place] [address] David Patel DO [address] [place] [address] Orthopedics & Sports [facility], [place] [address] ARTHROPLASTY ANATOMIC INVERSE SHOULDER 08/01/2025 8:00 AM EST Office Visit [facility] Orthopedics & Sports Medicine [address] [place] [address] Cameron Hayward PA-C [address] [place] [address] [place] [address] [email or web address] 08/29/2025 9:00 AM EST Office Visit [facility] Orthopedics & Sports Medicine [address] [place] [address] David Patel DO [address] [place] [address] Orthopedics & Sports [facility], [place] [address] 10/29/2025 8:00 AM EDT Office Visit [facility] Rheumatology [address] [place] [address] [place] [address] Anay Bliss MD 22 [facility], [address] [place] [address] [email or web address] Scheduled Procedures Name Priority Associated Diagnoses Date/Ti me ARTHROPLASTY ANATOMIC INVERSE SHOULDER Instability of prosthetic shoulder joint, sequela 07/16/2025 7:30 AM EST documented as of this encounter Visit Diagnoses Not on filedocumented in this encounter Care Teams Communications Controller Relationship Specialty Start Date End Date Demetrio Gonzales MD [address] [place] [address] PCP - General 06/10/17 11/26/24 Lucius Hannon MD [address] [place] [address] PCP - General Internal Medicine 11/27/24 See Wan MD [address] [place] [address] [email or web address] Historical LMR Provider 06/09/17 Anay Bliss MD [address] [place] [address], [address] [place] [address] Historical LMR Provider 06/09/17 David Patel DO [address] [place] [address] Orthopedics & Sports Medicine, [place] [address] Historical LMR Provider 06/09/17 documented as of this encounter Additional Source Comments The information contained in this document represents components of the legal health record. It is not the complete legal health record.[facility]
--- OUTSIDE RECORDS SUMMARY | 2025-06-14 12:52 | XMS_ITS | Encounter Summary ---
Author Organization [facility] Address [address] [place] [address] [place] [address] Phone Care Team Providers Care Development Professional Name Role Phone See Wan MD Unavailable [phone] Anay Bliss MD Unavailable [phone] David Patel DO Unavailable [phone] Demetrio Gonzales MD Primary Care Provider Lucius Hannon MD Primary Care Provid er Encounter Details Date Type Department Care Team (Late st Contact Info) Description 02/05/2023 Procedure Pass [facility], Ct Scan - [address] [id number] Social History Tobacco Use Types Packs/Day Years [...] 10:22 PM EDT Prashant Gutiérrez, SHABANA * [place] Suicide Severity Rating Scale (Screener/Recent Self-Report) Question [...] Description 06/20/2025 8:00 AM EDT Office Visit [facility] Orthopedics & Sports Medicine [address] [place] [address] Cameron Hayward PA-C [address] [place] [address] [place] [address] [email or web address] 07/13/2025 8:00 AM EST Pre-Admission Testing Pre Procedure Evaluation [address] [place] [address] David Patel DO [address] [place] [address] Orthopedics & Sports [place], [place] [address] 07/16/2025 Procedure Pass OR Admitting Dept - Virtual Department [address] [place] [address] 07/16/2025 7:30 AM EST Hospital Encounter OR Admitting Dept - Virtual Department [address] [place] [address] David Patel DO [address] [place] [address] Orthopedics [facility] [place] [address] 07/16/2025 7:30 AM EST - 07/16/2025 9:55 AM EST Surgery OR Admitting Dept - Virtual Department [address] [place] [address] David Patel DO [address] [place] [address] Orthopedics & Sports [facility], [place] [address] ARTHROPLASTY ANATOMIC INVERSE SHOULDER 08/01/2025 8:00 AM EST Office Visit [facility] Orthopedics & Sports Medicine [address] [place] [address] Cameron Hayward PA-C [address] [place] [address] [place] [address] [email or web address] 08/29/2025 9:00 AM EST Office Visit [facility] Orthopedics & Sports Medicine [address] [place] [address] David Patel DO [address] [place] [address] Orthopedics Sports [facility], [place] [address] 10/29/2025 8:00 AM EDT Office Visit [facility] Rheumatology [address] [place] [address] [place] [address] Anay Bliss MD [address] [place] [address], [address] [place] [address] [email or web address] Scheduled Procedures Name Priority Associated Diagnoses Date/Ti me ARTHROPLASTY ANATOMIC INVERSE SHOULDER Instability of prosthetic shoulder joint, sequela 07/16/2025 7:30 AM EST documented as of this encounter Visit Diagnoses Not on filedocumented in this encounter Care Teams Development Professional Relationship Specialty Start Date End Date Demetrio Gonzales MD [address] [place] [address] PCP - General 06/10/17 11/26/24 Lucius Hannon MD [address] [place] [address] PCP - General Internal Medicine 11/27/24 See Wan MD [address] [place] [address] [email or web address] Historical LMR Provider 06/09/17 Anay Bliss MD [address] [place] [address], [address] [place] [address] Historical LMR Provider 06/09/17 David Patel DO [address] [place] [address] Orthopedics & Sports Medicine, [place] [address] Historical LMR Provider 06/09/17 documented as of this encounter Additional Source Comments The information contained in this document represents components of the legal health record. It is not the complete legal health record.[facility]
--- OUTSIDE RECORDS SUMMARY | 2025-06-14 12:52 | XMS_ITS | Encounter Summary ---
Author Organization [facility] Address [address] [place] [address] Phone Care Team Providers Care Hard Hat Diver Name Role Phone See Wan MD Unavailable Anay Bliss MD Unavailable Tammi Corral PA-C Unavailable [phone] David Patel DO Unavailable [phone] Demetrio Gonzales MD Unavailable Linette Echeverria PA-C Unavailable Cirilo Bernard MD Unavailable [phone] Akil Jenkins MD Unavailable [phone] Demetrio Gonzales MD Primary Care Provider Lucius Hannon MD Primary Care Provid er Encounter Details Date Type Department Care Team (Late st Contact Info) Description 01/29/2021 Procedure Pass [facility], Ct Scan - [address] [id number] Social History Tobacco Use Types Packs/Day Years [...] 8:31 AM EDT Latasha Quiroga RN * [place] Suicide Severity Rating Scale (Screener/Recent Self-Report) Question [...] Description 06/20/2025 8:00 AM EDT Office Visit [facility] Orthopedics & Sports Medicine [address] [place] [address] Cameron Hayward PA-C [address] [place] [address] [place] [address] [email or web address] 07/13/2025 8:00 AM EST Pre-Admission Testing Pre Procedure Evaluation [address] [place] [address] 19932 David Patel DO [address] [place] [address] [facility] [place] [address] 07/16/2025 Procedure Pass OR Admitting Dept - Virtual Department [address] [place] [address] 148[address] 07/16/2025 7:30 AM EST Hospital Encounter OR Admitting Dept - Virtual Department [address] [place] [address] 93485 David Patel DO [address] [place] [address] [facility] [place] [address] 07/16/2025 7:30 AM EST - 07/16/2025 9:55 AM EST Surgery OR Admitting Dept - Virtual Department [address] [place] [address] 61040 David Patel DO [address] [place] [address] Orthopedics & Sports [facility], [place] [address] ARTHROPLASTY ANATOMIC INVERSE SHOULDER 08/01/2025 8:00 AM EST Office Visit [facility] Orthopedics & Sports Medicine [address] [place] [address] 616[address] Cameron Hayward PA-C [address] [place] [address] [place] [address] [email or web address] 08/29/2025 9:00 AM EST Office Visit [facility] Orthopedics & Sports Medicine [address] [place] [address] 28[address] David Patel DO [address] [place] [address] Orthopedics & Sports [facility], [place] [address] 10/29/2025 8:00 AM EDT Office Visit [facility] Rheumatology [address] [place] [address] [place] [address] Anay Bliss MD [address] [place] [address], [address] [place] [address] [email or web address] Scheduled Procedures Name Priority Associated Diagnoses Date/Ti me ARTHROPLASTY ANATOMIC INVERSE SHOULDER Instability of prosthetic shoulder joint, sequela 07/16/2025 7:30 AM EST documented as of this encounter Visit Diagnoses Not on filedocumented in this encounter Care Teams Hard Hat Diver Relationship Specialty Start Date End Date Demetrio Gonzales MD [address] [place] [address] [place] [address] PCP - General 06/10/17 11/26/24 Lucius Hannon MD [address] [place] [address] PCP - General Internal Medicine 11/27/24 See Wan MD [address] [place] [address] [email or web address] Historical LMR Provider 06/09/17 Anay Bliss MD [address] [place] [address] [address] [place] [address] Historical LMR Provider 06/09/17 Tammi Corral PA-C [address] [place] [address] Orthopedics & Sports [facility], [place] [address] Historical LMR Provider 06/09/17 08/30/21 David Patel DO [address] [place] [address] Orthopedics Sports [facility], [place] [address] Historical LMR Provider 06/09/17 Demetrio Gonzales MD [address] [place] [address] Historical LMR Provider 06/09/17 2 Lientte Echeverria PA-C [address] [place] [address] Orthopedics & Sports Medicine, [place] [address] Historical LMR Provider 06/09/17 08/30/21 Cirilo Bernard MD [address] [place] [address] [email or web address] Historical LMR Provider 06/09/17 08/30/21 Akil Jenkins MD [address] [place] [address] Historical LMR Provider 06/09/17 2 documented as of this encounter Additional Source Comments The information contained in this document represents components of the legal health record. It is not the complete legal health record.[facility]
--- OUTSIDE RECORDS SUMMARY | 2025-06-14 12:53 | XMS_ITS | Encounter Summary ---
Author Organization [facility] Address [address] [place] [address] [place] [address] Phone Care Team Providers Care Photographic Editor Name Role Phone See Wan MD Unavailable Anay Bliss MD Unavailable [phone] Tammi Corral PA-C Unavailable [phone] David Patel DO Unavailable Demetrio Gonzales MD Unavailable [phone] Linette Echeverria PA-C Unavailable Cirilo Bernard MD Unavailable Akil Jenkins MD Unavailable [phone] Demetrio Gonzales MD Primary Care Provider Lucius Hannon MD Primary Care Provid er Encounter Details Date Type Department Care Team (Late st Contact Info) Description 06/22/2018 Ancillary Orders [facility] [address] [place] [address] Suad Hardy MD 22 [facility], [address] [place] [address] [email or web address] Breast screening Social History Tobacco Use Types [...] Description 06/20/2025 8:00 AM EDT Office Visit [facility] Orthopedics & Sports Medicine [address] [place] [address] Cameron Hayward PA-C [address] [place] [address] [place] [address] [email or web address] 07/13/2025 8:00 AM EST Pre-Admission Testing Pre Procedure Evaluation [address] [place] [address] David Patel DO 4 [facility] Orthopedics & Sports [facility] [place] [address] 07/16/2025 Procedure Pass OR Admitting Dept - Virtual Department [address] [place] [address] 07/16/2025 7:30 AM EST Hospital Encounter OR Admitting Dept - Virtual Department [address] [place] [address] 8[address] David Patel DO 4 [facility] Orthopedics & Sports Medicine, [place] [address] 07/16/2025 7:30 AM EST - 07/16/2025 9:55 AM EST Surgery OR Admitting Dept - Virtual Department [address] [place] [address] 09871 David Patel DO 4 [facility] Orthopedics & Sports [facility] [place] [address] ARTHROPLASTY ANATOMIC INVERSE SHOULDER 08/01/2025 8:00 AM EST Office Visit [facility] Orthopedics & Sports Medicine [address] [place] [address] 107[address] Cameron Hayward PA-C [address] [place] [address] [place] [address] [email or web address] 08/29/2025 9:00 AM EST Office Visit [facility] Orthopedics & Sports Medicine [address] [place] [address] [phone] David Patel DO [address] [place] [address] Orthopedics & Sports Medicine, [place] [address] 10/29/2025 8:00 AM EDT Office Visit [facility] Rheumatology [address] [place] [address] Anay Bliss MD 22 [facility], [address] [place] [address] [email or web address] Scheduled Procedures Name Priority Associated Diagnoses [...] sequela documented in this encounter Care Teams Photographic Editor Relationship Specialty Start Date End Date Demetrio Gonzales MD [address] [place] [address] PCP - General 06/10/17 11/26/24 Lucius Hannon MD [address] [place] [address] PCP - General Internal Medicine 11/27/24 See Wan MD [address] [place] [address] [email or web address] Historical LMR Provider 06/09/17 Anay Bliss MD [address] [place] [address], [address] [place] [address] [email or web address] Historical LMR Provider 06/09/17 Tammi Corral PA-C [address] [place] [address] Orthopedics [facility], [place] [address] Historical LMR Provider 06/09/17 08/30/21 David Patel DO [address] [place] [address] Orthopedics [facility], [place] [address] [email or web address] Historical LMR Provider 06/09/17 Demetrio Gonzales MD [address] [place] [address] [place] [address] Historical LMR Provider 06/09/17 2 Linette Echeverria PA-C [address] [place] [address] Orthopedics [facility], [place] [address] Historical LMR Provider 06/09/17 08/30/21 Cirilo Bernard MD [address] [place] [address], [address] [place] [address] Historical LMR Provider 06/09/17 08/30/21 Akil Jenkins MD [address] [place] [address] Historical LMR Provider 06/09/17 2 documented as of this encounter Additional Source Comments The information contained in this document represents components of the legal health record. It is not the complete legal health record.[facility]
--- OUTSIDE RECORDS SUMMARY | 2025-06-14 12:53 | XMS_ITS | Encounter Summary ---
Author Organization [facility] Address [address] [place] [address] Phone Care Team Providers Care Market Intelligence Consultant Name Role Phone See Wan MD Unavailable [phone] Anay Bliss MD Unavailable Tammi Corral PA-C Unavailable [phone] David Patel DO Unavailable Demetrio Gonzales MD Unavailable Linette Echeverria PA-C Unavailable Cirilo Bernard MD Unavailable Akil Jenkins MD Unavailable [phone] Demetrio Gonzales MD Primary Care Provider Lucius Hannon MD Primary Care Provid er Encounter Details Date Type Department Care Team (Late st Contact Info) Description 01/29/2021 Procedure Pass [facility], Ct Scan - [address] [id number] Social History Tobacco Use Types Packs/Day Years [...] 8:31 AM EDT Latasha Quiroga RN * [place] Suicide Severity Rating Scale (Screener/Recent Self-Report) Question [...] Description 06/20/2025 8:00 AM EDT Office Visit [facility] Orthopedics & Sports Medicine [address] [place] [address]27 Cameron Hayward PA-C [address] [place] [address] [place] [address] [email or web address] 07/13/2025 8:00 AM EST Pre-Admission Testing Pre Procedure Evaluation [address] [place] [address] David Patel DO [address] [place] [address] [facility] [place] [address] 07/16/2025 Procedure Pass OR Admitting Dept - Virtual Department [address] [place] [address] 07/16/2025 7:30 AM EST Hospital Encounter OR Admitting Dept - Virtual Department [address] [place] [address] David Patel DO [address] [place] [address] [facility] [place] [address] 07/16/2025 7:30 AM EST - 07/16/2025 9:55 AM EST Surgery OR Admitting Dept - Virtual Department [address] [place] [address] David Patel DO [address] [place] [address] Orthopedics & Sports [facility], [place] [address] ARTHROPLASTY ANATOMIC INVERSE SHOULDER 08/01/2025 8:00 AM EST Office Visit [facility] Orthopedics & Sports Medicine [address] [place] [address] Cameron Hayward PA-C [address] [place] [address] [place] [address] [email or web address] 08/29/2025 9:00 AM EST Office Visit [facility] Orthopedics & Sports Medicine [address] [place] [address] David Patel DO [address] [place] [address] Orthopedics & Sports [facility], [place] [address] 10/29/2025 8:00 AM EDT Office Visit [facility] Rheumatology [address] [place] [address] [place] [address] Anay Bliss MD [address] [place] [address], [address] [place] [address] [email or web address] Scheduled Procedures Name Priority Associated Diagnoses Date/Ti me ARTHROPLASTY ANATOMIC INVERSE SHOULDER Instability of prosthetic shoulder joint, sequela 07/16/2025 7:30 AM EST documented as of this encounter Visit Diagnoses Not on filedocumented in this encounter Care Teams Market Intelligence Consultant Relationship Specialty Start Date End Date Demetrio Gonzales MD [address] [place] [address] [place] [address] PCP - General 06/10/17 11/26/24 Lucius Hannon MD [address] [place] [address] 11880 PCP - General Internal Medicine 11/27/24 See aWn MD [address] [place] [address] [email or web address] Historical LMR Provider 06/09/17 Anay Bliss MD [address] [place] [address] [address] [place] [address] Historical LMR Provider 06/09/17 Tammi Corral PA-C [address] [place] [address] Orthopedics & Sports [facility], [place] [address] Historical LMR Provider 06/09/17 08/30/21 David Patel DO [address] [place] [address] Orthopedics Sports [facility], [place] [address] Historical LMR Provider 06/09/17 Demetrio Gonzales MD [address] [place] [address] Historical LMR Provider 06/09/17 2 Linette Echeverria PA-C [address] [place] [address] Orth[facility] Medicine, [place] [address] Historical LMR Provider 06/09/17 08/30/21 Cirilo Bernard MD [address] [place] [address] [email or web address] Historical LMR Provider 06/09/17 08/30/21 Akil Jenkins MD [address] [place] [address] Historical LMR Provider 06/09/17 2 documented as of this encounter Additional Source Comments The information contained in this document represents components of the legal health record. It is not the complete legal health record.[facility]
--- OUTSIDE RECORDS SUMMARY | 2025-06-14 12:54 | XMS_ITS | Encounter Summary ---
Author Organization [facility] Address [address] [place] [address] Phone Care Team Providers Care Director Of Reimbursement Name Role Phone See Wan MD Unavailable Anay Bliss MD Unavailable Tammi Corral PA-C Unavailable [phone] David Patel DO Unavailable Demetrio Gonzales MD Unavailable Linette Echeverria PA-C Unavailable Cirilo Bernard MD Unavailable Akil Jenkins MD Unavailable [phone] Demetrio Gonzales MD Primary Care Provider Lucius Hannon MD Primary Care Provid er Reason for Referral * MRI/CAT Scan - Closed Specialty Diagnoses / Procedures Referred By Edmond t Referred To Contact Radiology Diagnoses White matter disease Dizziness Seizures Procedures MRI Brain Tee Oneal MD Phone: tel: fax: mailto: Referral ID Status Reason Start Date Expiration Date Visits Re quested Visits Authorized [id number] Closed 04/12/2018 07/11/2018 1 1 Encounter Details Date Type Department Care Team (Late st Contact Info) Description 04/12/2018 Ancillary Orders Virtual Department [address] [place] [address] Tee Oneal MD [address] [place] [address], [address] [place] [address] [email or web address] White matter disease; Dizziness; Seizures [...] Description 06/20/2025 8:00 AM EDT Office Visit [facility] Orthopedics & Sports Medicine [address] [place] [address] Cameron Hayward PA-C [address] [place] [address] [place] [address] [email or web address] 07/13/2025 8:00 AM EST Pre-Admission Testing Pre Procedure Evaluation [address] [place] [address] David Patel DO [address] [place] [address] Orthopedics & Sports Medicine, [facility] [place] [address] 07/16/2025 Procedure Pass OR Admitting Dept - Virtual Department [address] [place] [address] 07/16/2025 7:30 AM EST Hospital Encounter OR Admitting Dept - Virtual Department [address] [place] [address] David Patel DO 4 [facility] Orthopedics & Sports [place] [place] [address] 07/16/2025 7:30 AM EST - 07/16/2025 9:55 AM EST Surgery OR Admitting Dept - Virtual Department [address] [place] [address]83 David Patel DO [address] [place] [address] [facility] [place] [place] [address] ARTHROPLASTY ANATOMIC INVERSE SHOULDER 08/01/2025 8:00 AM EST Office Visit [facility] Orthopedics & Sports Medicine [address] [place] [address] Cameron Hayward PA-C [address] [place] [address] [place] [address] [email or web address] 08/29/2025 9:00 AM EST Office Visit [facility] Orthopedics & Sports Medicine [address] [place] [address] David Patel DO [address] [place] [address] Orthopedics & [facility] [place] [address] 10/29/2025 8:00 AM EDT Office Visit [facility] Rheumatology [address] [place] [address] [place] [address] Anay Bliss MD [address] [place] [address], [address] [place] [address] [email or web address] Scheduled Procedures Name Priority Associated [...] and diffusion-weighted imaging with ADC map, coronal [id number] and STIR, sagittal T1 and T2 FLAIR [...] sequela documented in this encounter Care Teams Director Of Reimbursement Relationship Specialty Start Date End Date Demetrio Gonzales MD [address] [place] [address] [place] [address] PCP - General 06/10/17 11/26/24 Lucius Hannon MD [address] [place] [address] [place] [address] PCP - General Internal Medicine 11/27/24 See Wan MD [address] [place] [address] [email or web address] Historical LMR Provider 06/09/17 Anay Bliss MD [address] [place] [address], [address] [place] [address] Historical LMR Provider 06/09/17 Tammi Corral PA-C [address] [place] [address] Orthopedics Sports [facility], [place] [address] Historical LMR Provider 06/09/17 08/30/21 David Patel DO [address] [place] [address] Orthopedics Sports [facility], [place] [address] Historical LMR Provider 06/09/17 Demetrio Gonzales MD [address] [place] [address] [place] [address] Historical LMR Provider 06/09/17 Linette Patel PA-C [address] [place] [address] Orthopedics Sports [facility], [place] [address] Historical LMR Provider 06/09/17 08/30/21 Cirilo Bernard MD [address] [place] [address], [address] [place] [address] Historical LMR Provider 06/09/17 08/30/21 Akil Jenkins MD [address] [place] [address] Historical LMR Provider 06/09/17 2 documented as of this encounter Additional Source Comments The information contained in this document represents components of the legal health record. It is not the complete legal health record.[facility]
--- OUTSIDE RECORDS SUMMARY | 2025-06-14 12:54 | XMS_ITS | Encounter Summary ---
Author Organization [facility] Address [address] [place] [address] Phone Care Team Providers Care Para Educator Name Role Phone See Wan MD Unavailable [phone] Anay Bliss MD Unavailable Tammi Corral PA-C Unavailable [phone] David Patel DO Unavailable [phone] Demetrio Gonzales MD Unavailable Linette Echeverria PA-C Unavailable Cirilo Bernard MD Unavailable [phone] Akil Jenkins MD Unavailable [phone] Demetrio Gonzales MD Primary Care Provider Lucius Hannon MD Primary Care Provid er Encounter Details Date Type Department Care Team (Latest Contact Info) Description 10/23/2019 Transcribe Orders Virtual Department [address] [place], [place] [phone] Tee Oneal MD [address] [place] [address], [address] [place], [place] [phone] [email or web address] White matter disease (Primary Dx) Social [...] 06/20/2025 8:00 AM EDT Office Visit [facility] Orthopedics & Sports Medicine [address] [place] [address] Cameron Hayward PA-C [address] [place] [address] [place] [address] [email or web address] 07/13/2025 8:00 AM EST Pre-Admission Testing Pre Procedure Evaluation [address] [place] [address] 9[address] David Patel DO [facility] Orthopedics & [facility] [place] [address] 07/16/2025 Procedure Pass OR Admitting Dept - Virtual Department [address] [place] [address] 07/16/2025 7:30 AM EST Hospital Encounter OR Admitting Dept - Virtual Department [address] [place] [address] 65[address] David Patel DO [facility] [place] [address] 07/16/2025 7:30 AM EST - 07/16/2025 9:55 AM EST Surgery OR Admitting Dept - Virtual Department [address] [place] [address] David Patel DO [facility] [place] [address] ARTHROPLASTY ANATOMIC INVERSE SHOULDER 08/01/2025 8:00 AM EST Office Visit [facility] Orthopedics & Sports Medicine [address] [place] [address] Cameron Hayward PA-C [address] [place] [address] [place] [address] [email or web address] 08/29/2025 9:00 AM EST Office Visit [facility] Orthopedics & Sports Medicine [address] [place] [address] David Patel DO [address] [place] [address] Orthopedics & Sports Medicine, [place] [address] 10/29/2025 8:00 AM EDT Office Visit [facility] Rheumatology [address] [place] [address] Anay Bliss MD 22 [facility], [address] [place] [address] [email or web address] Scheduled Procedures Name Priority Associated Diagnoses Date/Ti me ARTHROPLASTY ANATOMIC INVERSE SHOULDER Instability of prosthetic shoulder joint, sequela 07/16/2025 7:30 AM EST documented as of this encounter Visit Diagnoses Diagnosis White matter disease- Primary Instability of prosthetic shoulder joint, sequela documented in this encounter Care Teams Para Educator Relationship Specialty Start Date End Date Demetrio Gonzales MD [address] [place] [address] [place] [address] PCP - General 06/10/17 11/26/24 Lucius Hannon MD [address] [place] [address] [place] [address] PCP - General Internal Medicine 11/27/24 See Wan MD [address] [place] [address] [email or web address] Historical LMR Provider 06/09/17 Anay Bliss MD [address] [place] [address], [address] [place] [address] [email or web address] Historical LMR Provider 06/09/17 Tammi Corral PA-C [address] [place] [address] Orthopedics Sports [facility], [place] [address] Historical LMR Provider 06/09/17 08/30/21 David Patel DO [address] [place] [address] Orthopedics Sports [facility], [place] [address] Historical LMR Provider 06/09/17 Demetrio Gonzales MD [address] [place] [address] Historical LMR Provider 06/09/17 Linette Patel PA-C [address] [place] [address] Orthopedics Sports [facility], [place] [address] Historical LMR Provider 06/09/17 08/30/21 Cirilo Bernard MD [address] [place] [address], [address] [place] [address] [email or web address] Historical LMR Provider 06/09/17 08/30/21 Akil Jenkins MD [address] [place] [address] Historical LMR Provider 06/09/17 2 documented as of this encounter Additional Source Comments The information contained in this document represents components of the legal health record. It is not the complete legal health record.[facility]
--- OUTSIDE RECORDS SUMMARY | 2025-06-14 12:54 | XMS_ITS | Encounter Summary ---
Author Organization [facility] Address [address] [place] [address] Phone Care Team Providers Care Multiple Drum Sander Helper Name Role Phone See Wan MD Unavailable Anay Bliss MD Unavailable Tammi Corral PA-C Unavailable [phone] David Patel DO Unavailable [phone] Demetrio Gonzales MD Unavailable Linette Echeverria PA-C Unavailable Cirilo Bernard MD Unavailable Akil Jenkins MD Unavailable [phone] Demetrio Gonzales MD Primary Care Provider Lucius Hannon MD Primary Care Provid er Encounter Details Date Type Department Care Team (Latest Contact Info) Description 08/29/2018 Transcribe Orders [facility] [address] [place] [address] [phone] Tee Oneal MD [address] [place] [address], [address] [place] [address] [email or web address] Nonintractable headache, unspecified chronicity pattern, unspecified [...] Description 06/20/2025 8:00 AM EDT Office Visit [facility] Orthopedics & Sports Medicine [address] [place] [address] Cameron Hayward PA-C [address] [place] [address] [place] [address] [email or web address] 07/13/2025 8:00 AM EST Pre-Admission Testing Pre Procedure Evaluation [address] [place] [address] David Patel DO [address] [place] [address] [facility] [place] [place] [address] 07/16/2025 Procedure Pass OR Admitting Dept - Virtual Department [address] [place] [address] 07/16/2025 7:30 AM EST Hospital Encounter OR Admitting Dept - Virtual Department [address] [place] [address] David Patel DO [address] [place] [address] [facility] [place] [place] [address] 07/16/2025 7:30 AM EST - 07/16/2025 9:55 AM EST Surgery OR Admitting Dept - Virtual Department [address] [place] [address] David Patel DO 4 [facility] Orthopedics & Sports [place] [address] ARTHROPLASTY ANATOMIC INVERSE SHOULDER 08/01/2025 8:00 AM EST Office Visit [facility] Orthopedics & Sports Medicine [address] [place] [address] Cameron Hayward PA-C [address] [place] [address] [place] [address] [email or web address] 08/29/2025 9:00 AM EST Office Visit [facility] Orthopedics & Sports Medicine [address] [place] [address] David Patel DO [address] [place] [address] Orthopedics & Sports [facility], [place] [address] 10/29/2025 8:00 AM EDT Office Visit [facility] Rheumatology [address] [place] [address] Anay Bliss MD [address] [place] [address], [address] [place] [address] [email or web address] Scheduled Procedures Name Priority Associated Diagnoses Date/Ti me ARTHROPLASTY ANATOMIC INVERSE SHOULDER Instability of prosthetic shoulder joint, sequela 07/16/2025 7:30 AM EST documented as of this encounter Results * Lipase (08/29/2018 9:26 AM EST) LIPASE 35 16 - 63 U/L [facility] Blood 08/29/2018 9:26 AM EST 08/29/2018 9:29 AM EST us Tee Oneal MD LAB BLOOD ORDERABLES Final R esult [facility] [address] [place] [address] * Amylase (08/29/2018 9:26 AM EST) AMYLASE 70 28 - 100 U/L [facility] Blood 08/29/2018 9:26 AM EST 08/29/2018 9:29 AM EST us Tee Oneal MD LAB BLOOD ORDERABLES Final R esult [facility] [address] [place] [address] documented in this encounter Visit Diagnoses Diagnosis Nonintractable headache, unspecified chronicity pattern, unspecified headache type- Primary Instability of prosthetic shoulder joint, sequela documented in this encounter Care Teams Multiple Drum Sander Helper Relationship Specialty Start Date End Date Demetrio Gonzales MD [address] [place] [address] PCP - General 06/10/17 11/26/24 Lucius Hannon MD [address] [place] [address] PCP - General Internal Medicine 11/27/24 See Wan MD [address] [place] [address] [email or web address] Historical LMR Provider 06/09/17 Anay Bliss MD [address] [place] [address], [address] [place] [address] [email or web address] Historical LMR Provider 06/09/17 Tammi Corral PA-C [address] [place] [address] Orthopedics & Sports Medicine, [place] [address] Historical LMR Provider 06/09/17 08/30/21 David Patel DO 4 [facility] Orthopedics & Sports Medicine, [place] [address] Historical LMR Provider 06/09/17 Demetrio Gonzales MD [address] [place] [address] [place] [address] Historical LMR Provider 06/09/17 2 Linette Echeverria PA-C 4 [facility] Orthopedics Sports [facility], [place] [address] Historical LMR Provider 06/09/17 08/30/21 Cirilo Bernard MD [address] [place] [address] Historical LMR Provider 06/09/17 08/30/21 Akil Jenkins MD [address] [place] [address] Historical LMR Provider 06/09/17 2 documented as of this encounter Additional Source Comments The information contained in this document represents components of the legal health record. It is not the complete legal health record.[facility]
--- OUTSIDE RECORDS SUMMARY | 2025-06-14 12:54 | XMS_ITS | Encounter Summary ---
Author Organization [facility] Address [address] [place] [address] Phone Care Team Providers Care Public Affairs Director Name Role Phone See Wan MD Unavailable [phone] Anay Bliss MD Unavailable [phone] Tammi Corral PA-C Unavailable [phone] David Patel DO Unavailable [phone] Demetrio Gonzales MD Unavailable Linette Echeverria PA-C Unavailable Cirilo Bernard MD Unavailable [phone] Akil Jenkins MD Unavailable [phone] Demetrio Gonzales MD Primary Care Provider Lucius Hannon MD Primary Care Provid er Encounter Details Date Type Department Care Team (Late st Contact Info) Description 04/12/2018 Procedure Pass [facility], [address] [address] Social History Tobacco Use Types Packs/Day Years [...] Description 06/20/2025 8:00 AM EDT Office Visit [facility] Orthopedics & Sports Medicine [address] [place] [address] Cameron Hayward PA-C [address] [place] [address] [place] [address] [email or web address] 07/13/2025 8:00 AM EST Pre-Admission Testing Pre Procedure Evaluation [address] [place] [address] David Patel DO [address] [place] [address] Orthopedics & Sports Medicine, [place] [address] 07/16/2025 Procedure Pass OR Admitting Dept - Virtual Department [address] [place] [address] 07/16/2025 7:30 AM EST Hospital Encounter OR Admitting Dept - Virtual Department [address] [place] [address] David Patel DO [address] [place] [address] Orthopedics & Sports [facility], [place] [address] 07/16/2025 7:30 AM EST - 07/16/2025 9:55 AM EST Surgery OR Admitting Dept - Virtual Department [address] [place] [address] David Patel DO [address] [place] [address] Orth[facility] [place] [address] ARTHROPLASTY ANATOMIC INVERSE SHOULDER 08/01/2025 8:00 AM EST Office Visit [facility] Orthopedics & Sports Medicine [address] [place] [address] Cameron Hayward PA-C [address] [place] [address] [place] [address] [email or web address] 08/29/2025 9:00 AM EST Office Visit [facility] Orthopedics & Sports Medicine [address] [place] [address] David Patel DO [address] [place] [address] Orthopedics & Sports Medicine, [place] [address] 10/29/2025 8:00 AM EDT Office Visit [facility] Rheumatology [address] [place] [address] Anay Bliss MD [address] [place] [address], [address] [place] [address] [email or web address] Scheduled Procedures Name Priority Associated Diagnoses Date/Ti me ARTHROPLASTY ANATOMIC INVERSE SHOULDER Instability of prosthetic shoulder joint, sequela 07/16/2025 7:30 AM EST documented as of this encounter Visit Diagnoses Not on filedocumented in this encounter Care Teams Public Affairs Director Relationship Specialty Start Date End Date Demetrio Gonzales MD [address] [place], [place] [address] [place] [address] PCP - General 06/10/17 11/26/24 Lucius Hannon MD [address] [place] [address] PCP - General Internal Medicine 11/27/24 See Wan MD [address] [place] [address] [email or web address] Historical LMR Provider 06/09/17 Anay Bliss MD [address] [place] [address], [address] [place] [address] [email or web address] Historical LMR Provider 06/09/17 Tammi Corral PA-C [address] [place] [address] Orthopedics Sports [facility], [place] [address] Historical LMR Provider 06/09/17 08/30/21 David Patel DO [address] [place] [address] Orthopedics [facility], [place] [address] Historical LMR Provider 06/09/17 Demetrio Gonzales MD [address] [place] [address] Historical LMR Provider 06/09/17 2 Linette Echeverria PA-C [address] [place] [address] Orthopedics Sports [facility], [place] [address] Historical LMR Provider 06/09/17 08/30/21 Cirilo Bernard MD [address] [place] [address] [address] [place] [address] [email or web address] Historical LMR Provider 06/09/17 08/30/21 Akil Jenkins MD [address] [place] [address] Historical LMR Provider 06/09/17 2 documented as of this encounter Additional Source Comments The information contained in this document represents components of the legal health record. It is not the complete legal health record.[facility]
--- OUTSIDE RECORDS SUMMARY | 2025-06-14 12:54 | XMS_ITS | Encounter Summary ---
Author Organization [facility] Address [address] [place] [address] Phone Care Team Providers Care Fibre Composite Technician Name Role Phone See Wan MD Unavailable Anay Bliss MD Unavailable Tammi Corral PA-C Unavailable David Patel DO Unavailable [phone] Demetrio Gonzales MD Unavailable Linette Echeverria PA-C Unavailable [phone] Cirilo Bernard MD Unavailable [phone] Akil Jenkins MD Unavailable [phone] Demetrio Gonzales MD Primary Care Provider Lucius Hannon MD Primary Care Provid er Encounter Details Date Type Department Care Team (Late st Contact Info) Description 01/07/2018 Ancillary Orders [facility] Orthopedics & Sports Medicine [address] [place] [address] [phone] Linette Echeverria PA-C [address] [place] [address] Orthopedics & Sports Medicine, [facility]. [place], [place] [phone] Social History Tobacco Use Types Packs/Day Years [...] Office Visit [facility] Orthopedics & Sports Medicine [address] [place] [address] Cameron Hayward PA-C [address] [place] [address] [place] [address] [email or web address] 07/13/2025 8:00 AM EST Pre-Admission Testing Pre Procedure Evaluation [address] [place] [address] David Patel DO 4 [facility] Orthopedics & Sports [place] [address] [email or web address] 07/16/2025 Procedure Pass OR Admitting Dept - Virtual Department [address] [place] [address] 07/16/2025 7:30 AM EST Hospital Encounter OR Admitting Dept - Virtual Department [address] [place] [address] David Patel DO 4 [facility] Orthopedics & Sports Medicine, [facility] [place] [address] 07/16/2025 7:30 AM EST - 07/16/2025 9:55 AM EST Surgery OR Admitting Dept - Virtual Department [address] [place] [address] David Patel DO 4 [facility] Orthopedics & Sports [place] [address] ARTHROPLASTY ANATOMIC INVERSE SHOULDER 08/01/2025 8:00 AM EST Office Visit [facility] Orthopedics & Sports Medicine [address] [place] [address] Cameron Hayward PA-C [address] [place] [address] [place] [address] [email or web address] 08/29/2025 9:00 AM EST Office Visit [facility] Orthopedics & Sports Medicine [address] [place] [address] David Patel DO [address] [place] [address] Orthopedics [facility] [place] [address] 10/29/2025 8:00 AM EDT Office Visit [facility] Rheumatology [address] [place] [address] [place] [address] Anay Bliss MD [address] [place] [address], [address] [place] [address] [email or web address] Scheduled Procedures Name Priority Associated Diagnoses Date/Ti me ARTHROPLASTY ANATOMIC INVERSE SHOULDER Instability of prosthetic shoulder joint, sequela 07/16/2025 7:30 AM EST documented as of this encounter Visit Diagnoses Not on filedocumented in this encounter Care Teams Fibre Composite Technician Relationship Specialty Start Date End Date Demetrio Gonzales MD [address] [place] [address] [place] [address] PCP - General 06/10/17 11/26/24 Lucius Hannon MD [address] [place] [address] [place] [address] PCP - General Internal Medicine 11/27/24 See Wan MD [address] [place] [address] [email or web address] Historical LMR Provider 06/09/17 Anay Bliss MD [address] [place] [address], [address] [place] [address] [email or web address] Historical LMR Provider 06/09/17 Tammi Corral PA-C [address] [place] [address] Orthopedics [facility] [place] [address] Historical LMR Provider 06/09/17 08/30/21 David Patel DO [address] [place] [address] Orthopedics [facility], [place] [address] Historical LMR Provider 06/09/17 Demetrio Gonzales MD [address] [place] [address] [address] Historical LMR Provider 06/09/17 Linette Patel PA-C [address] [place] [address] Orthopedics [facility], [place] [address] Historical LMR Provider 06/09/17 08/30/21 Cirilo Bernard MD [address] [place] [address], [address] [place] [address] [email or web address] Historical LMR Provider 06/09/17 08/30/21 Akil Jenkins MD [address] [place] [address] Historical LMR Provider 06/09/17 2 documented as of this encounter Additional Source Comments The information contained in this document represents components of the legal health record. It is not the complete legal health record.[facility]
--- OUTSIDE RECORDS SUMMARY | 2025-06-14 12:54 | XMS_ITS | Encounter Summary ---
Author Organization [facility] Address [address] [place] [address] Phone Care Team Providers Care Finish Photographer Name Role Phone See Wan MD Unavailable [phone] Anay Bliss MD Unavailable Tammi CorralC Unavailable [phone] David Patel DO Unavailable Demetrio Gonzales MD Unavailable [phone] Linette Echeverria-C Unavailable [phone] Cirilo Bernard MD Unavailable [phone] Akil Jenkins MD Unavailable [phone] Demetrio Gonzales MD Primary Care Provider Lucius Hannon MD Primary Care Provid er Encounter Details Date Type Department Care Team (Late st Contact Info) Description 05/20/2020 Ancillary Orders Virtual Department [address] [place] [address] Tahmina Power PA [address] [place] [address] [email or web address] back [email or web address] Social History Tobacco Use [...] Description 06/20/2025 8:00 AM EDT Office Visit [facility] Orthopedics & Sports Medicine [address] [place] [address] Cameron Hayward PA-C [address] [place] [address] [place] [address] [email or web address] 07/13/2025 8:00 AM EST Pre-Admission Testing Pre Procedure Evaluation [address] [place] [address] David Patel DO 4 [facility] [place] [address] 07/16/2025 Procedure Pass OR Admitting Dept - Virtual Department [address] [place] [address] 07/16/2025 7:30 AM EST Hospital Encounter OR Admitting Dept - Virtual Department [address] [place] [address] David Patel DO 4 [facility] [place] [place] [address] 07/16/2025 7:30 AM EST - 07/16/2025 9:55 AM EST Surgery OR Admitting Dept - Virtual Department [address] [place] [address] David Patel DO 4 [facility] [place] [place] [address] ARTHROPLASTY ANATOMIC INVERSE SHOULDER 08/01/2025 8:00 AM EST Office Visit [facility] Orthopedics & Sports Medicine [address] [place] [address] Cameron Hayward PA-C [address] [place] [address] [place] [address] [email or web address] 08/29/2025 9:00 AM EST Office Visit [facility] Orthopedics & Sports Medicine [address] [place] [address] David Patel DO [address] [place] [address] Orthopedics & Sports Medicine, [facility] [place] [address] 10/29/2025 8:00 AM EDT Office Visit [facility] Rheumatology [address] [place] [address] Anay Bliss MD 22 [facility], [address] [place] [address] [email or web address] Scheduled Procedures Name Priority Associated [...] T12 compression fracture and moderate colonic stoolvolume. Tahmina FERRELL IMG XR SPINE Final Resul t documented in this encounter Visit Diagnoses Diagnosis Lumbar back pain Lumbago Lumbar back pain Lumbago Instability of prosthetic shoulder joint, sequela documented in this encounter Care Teams Finish Photographer Relationship Specialty Start Date End Date Demetrio Gonzales MD [address] [place] [address] PCP - General 06/10/17 11/26/24 Lucius Hannon MD [address] [place] [address] PCP - General Internal Medicine 11/27/24 See Wan MD [address] [place] [address] [email or web address] Historical LMR Provider 06/09/17 KlAnay Cobian MD 22 [facility], [address] [place] [address] Historical LMR Provider 06/09/17 Tammi Corral PA-C [address] [place] [address] Orthopedics Sports [facility], [place] [address] Historical LMR Provider 06/09/17 08/30/21 David Patel DO [address] [place] [address] Orthopedics Sports [facility], [place] [address] [email or web address] Historical LMR Provider 06/09/17 Demetrio Gonzales MD [address] [place] [address] [facility] [[email or web address] [place] [address] Historical LMR Provider 06/09/17 2 Linette Echeverria PA-C [address] [place] [address] Orthopedics Sports [facility], [place] [address] Historical LMR Provider 06/09/17 08/30/21 Cirilo Bernard MD [address] [place] [address], [address] [place] [address] Historical LMR Provider 06/09/17 08/30/21 Akil Jenkins MD [address] [place] [address] Historical LMR Provider 06/09/17 2 documented as of this encounter Additional Source Comments The information contained in this document represents components of the legal health record. It is not the complete legal health record.[facility]
--- OUTSIDE RECORDS SUMMARY | 2025-06-14 12:54 | XMS_ITS | Encounter Summary ---
Author Organization [facility] Address [address] [place] [address] Phone Care Team Providers Care Product Accountant Name Role Phone See Wan MD Unavailable Anay Bliss MD Unavailable [phone] Tammi Corral PA-C Unavailable [phone] David Patel DO Unavailable [phone] Demetrio Gonzales MD Unavailable Linette Echeverria PA-C Unavailable Cirilo Bernard MD Unavailable [phone] Akil Jenkins MD Unavailable [phone] Demetrio Gonzales MD Primary Care Provider Lucius Hannon MD Primary Care Provid er Reason for Referral * Outpatient Procedure - Closed Specialty Diagnoses / Procedures Referred By Edmond t Referred To Contact Radiology Diagnoses 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, initial encounter Left knee pain, unspecified chronicity Procedures NM Bone Flow 3 Phase Marah Pickens NP Phone: tel: fax: mailto:[email or web address] Referral ID Status Reason Start Date Expiration Date Visits Re quested Visits Authorized [id number] Closed 07/22/2018 07/22/2019 1 1 Encounter Details Date Type Department Care Team (Latest Contact Info) Description 07/22/2018 Ancillary Orders Virtual Department [address] [place] [address] Marah Pickens NP [address] [place] [address] [email or web address] Other mechanical complication of internal left knee [...] Description 06/20/2025 8:00 AM EDT Office Visit [facility] Orthopedics & Sports Medicine [address] [place] [address] Cameron Hayward PA-C [address] [place] [address] [place] [address] [email or web address] 07/13/2025 8:00 AM EST Pre-Admission Testing Pre Procedure Evaluation [address] [place] [address] David Patel DO [address] [place] [address] Orthopedics & Sports Medicine, [place] [address] 07/16/2025 Procedure Pass OR Admitting Dept - Virtual Department [address] [place] [address] 07/16/2025 7:30 AM EST Hospital Encounter OR Admitting Dept - Virtual Department [address] [place] [address]60 David Patel DO 4 [facility] Orthopedics & [facility] [place] [address] 07/16/2025 7:30 AM EST - 07/16/2025 9:55 AM EST Surgery OR Admitting Dept - Virtual Department [address] [place] [address]78 David Patel DO 4 [facility] [place] [address] ARTHROPLASTY ANATOMIC INVERSE SHOULDER 08/01/2025 8:00 AM EST Office Visit [facility] Orthopedics & Sports Medicine [address] [place] [address] Cameron Hayward PA-C [address] [place] [address] [place] [address] [email or web address] 08/29/2025 9:00 AM EST Office Visit [facility] Orthopedics & Sports Medicine [address] [place] [address] David Patel DO [address] [place] [address] Orthopedics & [facility] [place] [address] 10/29/2025 8:00 AM EDT Office Visit [facility] Rheumatology [address] [place] [address] [place] [address] Anay Bliss MD [address] [place] [address], [address] [place] [address] [email or web address] Scheduled Procedures Name Priority Associated [...] 1/2 ago, left knee pain POS - [id number] Narrative 07/25/2018 1:37 PM EST DOSE: 24.4 [...] 1/2 ago, left knee pain POS - [id number] Marah Pickens PCA ASSISTED LIVING IMG NM BONE SCAN Final Result documented in this encounter Visit Diagnoses Diagnosis 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, initial encounter Left knee pain, unspecified chronicity 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, initial encounter Left knee pain, unspecified chronicity Instability of prosthetic shoulder joint, sequela documented in this encounter Care Teams Product Accountant Relationship Specialty Start Date End Date Demetrio Gonzales MD [address] [place] [address] PCP - General 06/10/17 11/26/24 Lucius Hannon MD [address] [place] [address] PCP - General Internal Medicine 11/27/24 See Wan MD [address] [place] [address] [email or web address] Historical LMR Provider 06/09/17 Anay Bliss MD [address] [place] [address], [facility] [address] [place] [address] [email or web address] Historical LMR Provider 06/09/17 Tammi Corral PA-C [address] [place] [address] Orthopedics & Sports Medicine, [place], [place] [id number] Historical LMR Provider 06/09/17 08/30/21 David Patel DO 4 [facility] Orthopedics [facility] [place] [address] Historical LMR Provider 06/09/17 Demetrio Gonzales MD [address] [place] [address] [place] [address] Historical LMR Provider 06/09/17 2 Linette Echeverria PA-C [address] [place] [address] Orthopedics [facility], [place] [address] Historical LMR Provider 06/09/17 08/30/21 Cirilo Bernard MD [address] [place] [address] Historical LMR Provider 06/09/17 08/30/21 Akil Jenkins MD [address] [place] [address] Historical LMR Provider 06/09/17 2 documented as of this encounter Additional Source Comments The information contained in this document represents components of the legal health record. It is not the complete legal health record.[facility]
--- OUTSIDE RECORDS SUMMARY | 2025-06-14 12:54 | XMS_ITS | Encounter Summary ---
Author Organization [facility] Address [address] [place] [address] Phone Care Team Providers Care Education Program Manager Name Role Phone See Wan MD Unavailable [phone] Anay Bliss MD Unavailable Tammi Corral PA-C Unavailable [phone] David Patel DO Unavailable [phone] Demetrio Gonzales MD Unavailable Linette Echeverria PA-C Unavailable Cirilo Bernard MD Unavailable [phone] Akil Jenkins MD Unavailable [phone] Demetrio Gonzales MD Primary Care Provider Lucius Hannon MD Primary Care Provid er Encounter Details Date Type Department Care Team (Latest Contact Info) Description 09/27/2019 Transcribe Orders [facility] [address] [place] [address] [phone] Tee Oneal MD [address] [place] [address], [address] [place] [address] [email or web address] Nonintractable headache, [...] Description 06/20/2025 8:00 AM EDT Office Visit [facility] Orthopedics & Sports Medicine [address] [place] [address] Cameron Hayward PA-C [address] [place] [address] [place] [address] [email or web address] 07/13/2025 8:00 AM EST Pre-Admission Testing Pre Procedure Evaluation [address] [place] [address] David Patel DO [address] [place] [address] [facility] [place] [address] 07/16/2025 Procedure Pass OR Admitting Dept - Virtual Department [address] [place] [address] 07/16/2025 7:30 AM EST Hospital Encounter OR Admitting Dept - Virtual Department [address] [place] [address] David Patel DO [address] [place] [address] [facility] [place] [address] 07/16/2025 7:30 AM EST - 07/16/2025 9:55 AM EST Surgery OR Admitting Dept - Virtual Department [address] [place] [address] 10[address] David Patel DO 4 [facility] Orthopedics & Sports [place] [place] [address] ARTHROPLASTY ANATOMIC INVERSE SHOULDER 08/01/2025 8:00 AM EST Office Visit [facility] Orthopedics & Sports Medicine [address] [place] [address] 16[address] Cameron Hayward PA-C [address] [place] [address] [place] [address] [email or web address] 08/29/2025 9:00 AM EST Office Visit [facility] Orthopedics & Sports Medicine [address] [place] [address] David Patel DO [address] [place] [address] Orthopedics & Sports [facility], [place], [place] [id number] 10/29/2025 8:00 AM EDT Office Visit [facility] Rheumatology [address] [place] [address] Anay Bliss MD [address] [place] [address], [address] [place] [address] [email or web address] Scheduled Procedures Name Priority Associated Diagnoses Date/Ti me ARTHROPLASTY ANATOMIC INVERSE SHOULDER Instability of prosthetic shoulder joint, sequela 07/16/2025 7:30 AM EST documented as of this encounter Results * CBC (09/27/2019 10:43 AM EST) WBC 5.38 4.00 - 11.00 K/uL [facility] Comment:Note Reference Range updates to all CBC and Differential results. RBC 4.54 3.72 - 5.30 M/uL [facility] HGB 14.3 11.4 - 15.9 g/dL [facility] Comment:Note updated Referen ce Ranges for all CBC and Differential results. HCT 41.7 34.2 - 46.8 % [facility] PLT 224 140 - 430 K/uL [facility] MCV 91.9 78.0 - 97.0 fL [facility] MCH 31.5 25.0 - 33.0 pg [facility] MCHC 34.3 32.0 - 36.0 g/dL [facility] RDW 13.2 11.0 - 16.0 % [facility] MPV 10.3 8.4 - 12.8 fl [facility] NRBC 0.00 0 /100 WBCs [facility] ABSOLUTE NRBC 0.00 0 K/uL [facility] Blood 09/27/2019 10:4 3 AM EST 09/27/2019 10:47 AM EST us Tee Oneal MD LAB BLOOD ORDERABLES Final R esult Performing Organization Address City/[facility]/ZIP Co de Phone Number [address] [address] * LFTs (hepatic panel) (09/27/2019 10:43 AM EST) ALKALINE PHOSPHATASE 72 39 - 117 U/L [facility] TOTAL BILIRUBIN 0.3 0.0 - 1.2 mg/dL [facility] DIRECT BILIRUBIN <0.2 0 - 0.3 mg/dL [facility] Bilirubin (Indirect) NOT CALCULATED 0 - 1.5 mg/dL [facility] AST 32 0 - 37 U/L [facility] ALT 25 0 - 40 U/L [facility] TOTAL PROTEIN 7.3 6.5 - 8.0 g/dL [facility] ALBUMIN 4.5 3.9 - 4.8 g/dL [facility] GLOBULIN 2.8 1 - 4.8 g/dL [facility] A/G Ratio 1.61 1.00 - 4.80 RATIO [facility] Blood 09/27/2019 10:4 3 AM EST 09/27/2019 10:47 AM EST us Tee Oneal MD LAB BLOOD ORDERABLES Final R esult [address] [address] documented in this encounter Visit Diagnoses Diagnosis Nonintractable headache, unspecified chronicity pattern, unspecified headache type- Primary Instability of prosthetic shoulder joint, sequela documented in this encounter Care Teams Education Program Manager Relationship Specialty Start Date End Date Demetrio Gonzales MD [address] [place] [address] [place] [address] PCP - General 06/10/17 11/26/24 Lucius Hannon MD [address] [place] [address] Drive [facility] [place] [address] PCP - General Internal Medicine 11/27/24 See Wan MD [address] [place] [address] [email or web address] Historical LMR Provider 06/09/17 Anay Bliss MD [address] [place] [address], [address] [place] [address] [email or web address] Historical LMR Provider 06/09/17 Tammi Corral PA-C [address] [place] [address] Orthopedics & Sports [facility], [place] [address] Historical LMR Provider 06/09/17 08/30/21 David Patel DO [address] [place] [address] Orthopedics & Sports [facility], [place] [address] Historical LMR Provider 06/09/17 Demetrio Gonzales MD [address] [place] [address] [place] [address] Historical LMR Provider 06/09/17 2 Linette Echeverria PA-C [address] [place] [address] Orthopedics & Sports Medicine, [facility] [place] [address] Historical LMR Provider 06/09/17 08/30/21 Cirilo Bernard MD 22 [facility], [address] [place] [address] Historical LMR Provider 06/09/17 08/30/21 Akil Jenkins MD [address] [place] [address] Historical LMR Provider 06/09/17 2 documented as of this encounter Additional Source Comments The information contained in this document represents components of the legal health record. It is not the complete legal health record.[facility]
--- OUTSIDE RECORDS SUMMARY | 2025-06-14 12:54 | XMS_ITS | Encounter Summary ---
Author Organization [facility] Address [address] [place] [address] Phone Care Team Providers Care Wildlife Control Agent Name Role Phone See Wan MD Unavailable [phone] Anay Bliss MD Unavailable [phone] Tammi Corral PA-C Unavailable [phone] David Patel DO Unavailable [phone] Demetrio Gonzales MD Unavailable Linette Echeverria PA-C Unavailable [phone] Cirilo Bernard MD Unavailable [phone] Akil Jenkins MD Unavailable [phone] Demetrio Gonzales MD Primary Care Provider Lucius Hannon MD Primary Care Provid er Encounter Details Date Type Department Care Team (Latest Contact Info) Description 07/20/2018 Ancillary Orders Virtual Department [address] [place] [address] Dony Aguero MD [address] [address] Left knee pain, unspecified chronicity; Other mechanical [...] [facility] Orthopedics & Sports Medicine [address] [place] [address] Cameron Hayward PA-C [address] [place] [address] [place] [address] [email or web address] 07/13/2025 8:00 AM EST Pre-Admission Testing Pre Procedure Evaluation [address] [place] [address] David Patel DO [address] [facility] Orthopedics & Sports Medicine, [facility] [place] [address] 07/16/2025 Procedure Pass OR Admitting Dept - Virtual Department [address] [place] [address] 07/16/2025 7:30 AM EST Hospital Encounter OR Admitting Dept - Virtual Department [address] [place] [address] David Patel DO [address] [facility] Orthopedics & Sports Medicine[facility] [place] [address] 07/16/2025 7:30 AM EST - 07/16/2025 9:55 AM EST Surgery OR Admitting Dept - Virtual Department [address] [place] [address] David Patel DO [address] [facility] Orthopedics & Sports Medicine, [place] [address] ARTHROPLASTY ANATOMIC INVERSE SHOULDER 08/01/2025 8:00 AM EST Office Visit [facility] Orthopedics & Sports Medicine [address] [place] [address] Cameron Hayward PA-C [address] [place] [address] [place] [address] [email or web address] 08/29/2025 9:00 AM EST Office Visit [facility] Orthopedics & Sports Medicine [address] [place] [address] David Patel DO [address] [place] [address] Orthopedics & Sports Medicine, [facility] 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, sequela documented in this encounter Care Teams Wildlife Control Agent Relationship Specialty Start Date End Date Demetrio Gonzales MD [address] [place] [address] [place] [address] PCP - General 06/10/17 11/26/24 Lucius Hannon MD [address] [place] [address] [place] [address] PCP - General Internal Medicine 11/27/24 See Wan MD [address] [place] [address] [email or web address] Historical LMR Provider 06/09/17 Anay Bliss MD [address] [place] [address], [address] [place] [address] Historical LMR Provider 06/09/17 Tammi Corral PA-C [address] [place] [address] Orthopedics Sports [facility], [place] [address] Historical LMR Provider 06/09/17 08/30/21 David Patel DO [address] [place] [address] [place] [address] Historical LMR Provider 06/09/17 Demetrio Gonzales MD [address] [place] [address] [place] [address] Historical LMR Provider 06/09/17 Linette Patel PA-C [address] [place] [address] Orthopedics Sports [facility], [place] [address] Historical LMR Provider 06/09/17 08/30/21 Cirilo Bernadr MD [address] [place] [address], [address] [place] [address] [email or web address] Historical LMR Provider 06/09/17 08/30/21 Akil Jenkins MD [address] [place] [address] Historical LMR Provider 06/09/17 2 documented as of this encounter Additional Source Comments The information contained in this document represents components of the legal health record. It is not the complete legal health record.[facility]
--- OUTSIDE RECORDS SUMMARY | 2025-06-14 12:55 | XMS_ITS | Encounter Summary ---
Author Organization [facility] Address [address] [place] [address] Phone Care Team Providers Care Boarder Hand Name Role Phone See Wan MD Unavailable Anay Bliss MD Unavailable Tammi Corral PA-C Unavailable [phone] David Patel DO Unavailable Demetrio Gonzales MD Unavailable [phone] Linette Echeverria PA-C Unavailable [phone] Cirilo Bernard MD Unavailable Akil Jenkins MD Unavailable [phone] Demetrio Gonzales MD Primary Care Provider Lucius Hannon MD Primary Care Provid er Encounter Details Date Type Department Care Team (Late st Contact Info) Description 01/07/2018 Ancillary Orders [address] [id number] Linette Echeverria PA-C [address] [place] [address] Orthopedics & Sports Medicine, [place], [place] [phone] [email or web address] Left shoulder pain, unspecified chronicity Social History [...] Description 06/20/2025 8:00 AM EDT Office Visit [facility] Orthopedics & Sports Medicine [address] [place] [address] Cameron Hayward PA-C [address] [place] [address] [place] [address] [email or web address] 07/13/2025 8:00 AM EST Pre-Admission Testing Pre Procedure Evaluation [address] [place] [address] David Patel DO [address] [place] [address] [facility] [place] [place] [address] 07/16/2025 Procedure Pass OR Admitting Dept - Virtual Department [address] [place] [address] 07/16/2025 7:30 AM EST Hospital Encounter OR Admitting Dept - Virtual Department [address] [place] [address] David Patel DO [address] [place] [address] [facility] [place] [place] [address] 07/16/2025 7:30 AM EST - 07/16/2025 9:55 AM EST Surgery OR Admitting Dept - Virtual Department [address] [place] [address] David Patel DO 4 [facility]oped[facility] Sports [place] [place] [address] ARTHROPLASTY ANATOMIC INVERSE SHOULDER 08/01/2025 8:00 AM EST Office Visit [facility] Orthopedics & Sports Medicine [address] [place] [address] Cameron Hayward PA-C [address] [place] [address] [place] [address] [email or web address] 08/29/2025 9:00 AM EST Office Visit [facility] Orthopedics & Sports Medicine [address] [place] [address] David Patel DO [address] [place] [address] Orthopedics & Sports [facility], [place] [address] 10/29/2025 8:00 AM EDT Office Visit [facility] Rheumatology [address] [place] [address] Anay Bliss MD [address] [place] [address], [address] [place] [address] [email or web address] Scheduled Procedures Name Priority Associated Diagnoses Date/Ti me ARTHROPLASTY ANATOMIC INVERSE SHOULDER Instability of prosthetic shoulder joint, sequela 07/16/2025 7:30 AM EST documented as of this encounter Results * XR SHOULDER 2 VIEWS (LEFT) (01/11/2018 10:42 AM EDT) Narrative Megan Marie - 01/11/2018 10:42 AM EDT This image [...] sequela documented in this encounter Care Teams Boarder Hand Relationship Specialty Start Date End Date Demetrio Gonzales MD [address] [place] [address] [place] [address] PCP - General 06/10/17 11/26/24 Lucius Hannon MD [address] [place] [address] Drive [facility] [place] [address] PCP - General Internal Medicine 11/27/24 See Wan MD [address] [place] [address] [email or web address] Historical LMR Provider 06/09/17 Anay Bliss MD [address] [place] [address], [address] [place] [address] [email or web address] Historical LMR Provider 06/09/17 Tammi Corral PA-C [address] [place] [address] Orthopedics Sports [facility], [place] [address] Historical LMR Provider 06/09/17 08/30/21 David Patel DO [address] [place] [address] Orthopedics & Sports [facility], [place] [address] Historical LMR Provider 06/09/17 Demetrio Gonzales MD [address] [place] [address] [place] [address] Historical LMR Provider 06/09/17 2 Linette Echeverria PA-C [address] [place] [address] Orthopedics & Sports Medicine, [place] [address] Historical LMR Provider 06/09/17 08/30/21 Cirilo Bernard MD [address] [place] [address] Historical LMR Provider 06/09/17 08/30/21 Akil Jenkins MD [address] [place] [address] Historical LMR Provider 06/09/17 2 documented as of this encounter Additional Source Comments The information contained in this document represents components of the legal health record. It is not the complete legal health record.[facility]
--- OUTSIDE RECORDS SUMMARY | 2025-06-14 12:55 | XMS_ITS | Encounter Summary ---
Author Organization [facility] Address [address] [place] [address] Phone Care Team Providers Care Colorer Hides And Skins Name Role Phone See Wan MD Unavailable Anay Bliss MD Unavailable Tammi Corral PA-C Unavailable [phone] David Patel DO Unavailable Demetrio Gonzales MD Unavailable Linette Echeverria PA-C Unavailable [phone] Cirilo Bernard MD Unavailable Akil Jenkins MD Unavailable [phone] Demetrio Gonzales MD Primary Care Provider Lucius Hannon MD Primary Care Provid er Encounter Details Date Type Department Care Team (Latest Contact Info) Description 11/04/2017 Transcribe Orders [facility] Laboratory [address] [place], [place] [id number] Hayley Collins, MISSILE TECHNICIAN [address] [place] [address] 101 [place], [place] [id number] [email or web address] Nonintractable headache, unspecified chronicity pattern, unspecified [...] AM EDT Office Visit [facility] Orthopedics & Sports Medicine [address] [place] [address] Cameron Hayward PA-C [address] [place] [address] [place] [address] [email or web address] 07/13/2025 8:00 AM EST Pre-Admission Testing Pre Procedure Evaluation [address] [place] [address] David Patel DO [address] [place] [address] [facility] [place] [address] 07/16/2025 Procedure Pass OR Admitting Dept - Virtual Department [address] [place] [address] 07/16/2025 7:30 AM EST Hospital Encounter OR Admitting Dept - Virtual Department [address] [place] [address] David Patel DO [address] [place] [address] [facility] [place] [address] 07/16/2025 7:30 AM EST - 07/16/2025 9:55 AM EST Surgery OR Admitting Dept - Virtual Department [address] [place] [address] David Patel DO [address] [place] [address] [facility] [place] [address] ARTHROPLASTY ANATOMIC INVERSE SHOULDER 08/01/2025 8:00 AM EST Office Visit [facility] Orthopedics & Sports Medicine [address] [place] [address] Cameron Hayward PA-C [address] [place] [address] [place] [address] [email or web address] 08/29/2025 9:00 AM EST Office Visit [facility] Orthopedics & Sports Medicine [address] [place] [address] 287[address] David Patel DO [address] [place] [address] [facility] [place] [address] 10/29/2025 8:00 AM EDT Office Visit [facility] Rheumatology [address] [place] [address] Anay Bliss MD [address] [place] [address], [address] [place] [address] [email or web address] Scheduled Procedures Name Priority Associated Diagnoses Date/Ti me ARTHROPLASTY ANATOMIC INVERSE SHOULDER Instability of prosthetic shoulder joint, sequela 07/16/2025 7:30 AM EST documented as of this encounter Results * CBC (11/04/2017 9:10 AM EDT) WBC 4.31 3.40 - 11.20 K/uL [facility] RBC 4.47 3.80 - 4.80 M/uL [facility] HGB 14.1 12.0 - 15.0 g/dL [facility] HCT 41.0 36.0 - 46.0 % [facility] PLT 184 130 - 400 K/uL [facility] MCV 91.7 79.0 - 98.0 fL [facility] MCH 31.5 27.0 - 34.8 pg [facility] MCHC 34.4 31.5 - 36.0 g/dL [facility] RDW 12.4 10.8 - 14.6 % [facility] MPV 10.3 9.4 - 12.4 fl [facility] NRBC 0.00 /100 WBCs [facility] ABSOLUTE NRBC 0.00 K/uL [facility] Blood 11/04/2017 9:10 AM EDT 11/04/2017 9:14 AM EDT us Hayley Collins MISSILE TECHNICIAN LAB BLOOD ORDERABLES Fin al Result Performing Organization Address City/[facility]/ZIP Co de Phone Number [address] [address] * LFTs (hepatic panel) (11/04/2017 9:10 AM EDT) ALKALINE PHOSPHATASE 65 39 - 117 U/L [facility] TOTAL BILIRUBIN 0.3 0.0 - 1.2 mg/dL [facility] DIRECT BILIRUBIN <0.2 0 - 0.3 mg/dL [facility] Bilirubin (Indirect) NOT CALCULATED 0 - 1.5 mg/dL [facility] AST 21 0 - 37 U/L [facility] ALT 16 0 - 40 U/L [facility] TOTAL PROTEIN 6.8 6.5 - 8.0 g/dL [facility] ALBUMIN 3.9 3.9 - 4.8 g/dL [facility] GLOBULIN 2.9 1 - 4.8 g/dL [facility] A/G Ratio 1.34 1.00 - 4.80 RATIO [facility] Blood 11/04/2017 9:10 AM EDT 11/04/2017 9:14 AM EDT us Hayley Collins MISSILE TECHNICIAN LAB BLOOD ORDERABLES Fin al Result Performing Organization Address City/[facility]/ZIP Co de Phone Number [address] [address] documented in this encounter Visit Diagnoses Diagnosis Nonintractable headache, unspecified chronicity pattern, unspecified headache type- Primary Instability of prosthetic shoulder joint, sequela documented in this encounter Care Teams Colorer Hides And Skins Relationship Specialty Start Date End Date Demetrio Gonzales MD [address] [place] [address] [place] [address] PCP - General 06/10/17 11/26/24 Lucius Hannon MD [address] [place] [address] [place] [address] PCP - General Internal Medicine 11/27/24 See Wan MD [address] [place] [address] [email or web address] Historical LMR Provider 06/09/17 Anay Bliss MD [address] [place] [address], [address] [place] [address] [email or web address] Historical LMR Provider 06/09/17 Tammi Corral PA-C [address] [place] [address] [facility], [place] [address] Historical LMR Provider 06/09/17 08/30/21 David Patel DO [address] [place] [address] [facility], [place] [address] Historical LMR Provider 06/09/17 Demetrio Gonzales MD [address] [place] [address] [place] [address] Historical LMR Provider 06/09/17 2 Linette Echeverria PA-C [address] [place] [address] [facility], [place] [address] Historical LMR Provider 06/09/17 08/30/21 Cirilo Beranrd MD [address] [place] [address] Historical LMR Provider 06/09/17 08/30/21 Akil Jenkins MD [address] [place] [address] Historical LMR Provider 06/09/17 2 documented as of this encounter Additional Source Comments The information contained in this document represents components of the legal health record. It is not the complete legal health record.[facility]
--- OUTSIDE RECORDS SUMMARY | 2025-06-14 12:55 | XMS_ITS | Encounter Summary ---
Author Organization [facility] Address [address] [place] [address] Phone Care Team Providers Care Baggage Screener Name Role Phone See Wan MD Unavailable [phone] Anay Bliss MD Unavailable Tammi Corral PA-C Unavailable [phone] David Patel DO Unavailable [phone] Demetrio Gonzales MD Unavailable [phone] Linette Echeverria PA-C Unavailable [phone] Cirilo Bernard MD Unavailable Akil Jenkins MD Unavailable [phone] Demetrio Gonzales MD Primary Care Provider Lucius Hannon MD Primary Care Provid er Encounter Details Date Type Department Care Team (Late st Contact Info) Description 12/27/2017 Procedure Pass OR Admitting Dept - Virtual Department 30 [place], [place] [phone] Social History Tobacco Use Types Packs/Day Years [...] 06/20/2025 8:00 AM EDT Office Visit [facility] Orthopedics & Sports Medicine [address] [place] [address] Cameron Hayward PA-C [address] [place] [address] [place] [address] [email or web address] 07/13/2025 8:00 AM EST Pre-Admission Testing Pre Procedure Evaluation [address] [place] [address] David Patel DO [address] [facility] Orthopedics Sports [facility], [place] [address] 07/16/2025 Procedure Pass OR Admitting Dept - Virtual Department [address] [place] [address] 07/16/2025 7:30 AM EST Hospital Encounter OR Admitting Dept - Virtual Department [address] [place] [address] David Patel, [address] [place], [place] [address]s Sports [facility], [place] [address] 07/16/2025 7:30 AM EST - 07/16/2025 9:55 AM EST Surgery OR Admitting Dept - Virtual Department [address] [place] [address] David Patel DO [address] [facility] Orthopedics Sports [facility], [facility] [address] ARTHROPLASTY ANATOMIC INVERSE SHOULDER 08/01/2025 8:00 AM EST Office Visit [facility] Orthopedics & Sports Medicine [address] [place] [address] Cameron Hayward PA-C [address] [place] [address] [place] [address] [email or web address] 08/29/2025 9:00 AM EST Office Visit [facility] Orthopedics & Sports Medicine [address] [place] [address] David Patel DO [address] [place] [address] Orthopedics & Sports Medicine, [facility] [place] [address] 10/29/2025 8:00 AM EDT Office Visit [facility] Rheumatology [address] [place] [address] [place] [address] Anay Bliss MD [address] [place] [address], [address] [place] [address] [email or web address] Scheduled Procedures Name Priority Associated Diagnoses Date/Ti me ARTHROPLASTY ANATOMIC INVERSE SHOULDER Instability of prosthetic shoulder joint, sequela 07/16/2025 7:30 AM EST documented as of this encounter Visit Diagnoses Not on filedocumented in this encounter Care Teams Baggage Screener Relationship Specialty Start Date End Date Demetrio Gonzales MD [address] [place] [address] PCP - General 06/10/17 11/26/24 Lucius Hannon MD [address] [place] [address] PCP - General Internal Medicine 11/27/24 See Wan MD [address] [place] [address] [phone] [email or web address] Historical LMR Provider 06/09/17 Anay Bliss MD [address] [facility], [address] [place] [address] Historical LMR Provider 06/09/17 Tammi Corral PA-C [address] [place] [address] Orthopedics & Sports [facility], [place] [address] Historical LMR Provider 06/09/17 08/30/21 David Patel DO [address] [place] [address] Orthopedics Sports [facility], [place] [address] Historical LMR Provider 06/09/17 Demetrio Gonzales MD [address] [place] [address] [facility] [place] [address] Historical LMR Provider 06/09/17 2 Linette Echeverria PA-C [address] [place] [address] Orthopedics & Sports [facility], [place] [address] Historical LMR Provider 06/09/17 08/30/21 Cirilo Bernard MD [address] [place] [address], [address] [place] [address] Historical LMR Provider 06/09/17 08/30/21 Akil Jenkins MD [address] [place] [address] Historical LMR Provider 06/09/17 2 documented as of this encounter Additional Source Comments The information contained in this document represents components of the legal health record. It is not the complete legal health record.[facility]
--- OUTSIDE RECORDS SUMMARY | 2025-06-14 12:55 | XMS_ITS | Encounter Summary ---
Author Organization [facility] Address [address] [place] [address] Phone Care Team Providers Care Journeyman Level Acoustic Analyst Name Role Phone See Wan MD Unavailable Anay Bliss MD Unavailable Tammi Corral PA-C Unavailable [phone] David Patel DO Unavailable [phone] Demetrio Gonzales MD Unavailable Linette Echeverria PA-C Unavailable Cirilo Bernard MD Unavailable Akil Jenkins MD Unavailable [phone] Demetrio Gonzales MD Primary Care Provider Lucius Hannon MD Primary Care Provid er Encounter Details Date Type Department Care Team (Late st Contact Info) Description 04/23/2020 Procedure Pass [address] [phone] Social History Tobacco Use Types Packs/Day Years [...] Description 06/20/2025 8:00 AM EDT Office Visit [facility] Orthopedics & Sports Medicine [address] [place] [address] Cameron Hayward PA-C [address] [place] [address] [place] [address] [email or web address] 07/13/2025 8:00 AM EST Pre-Admission Testing Pre Procedure Evaluation [address] [place] [address] David Patel, DO 4 [facility] Orthopedics Sports [facility], [place] [address] 07/16/2025 Procedure Pass OR Admitting Dept - Virtual Department [address] [place] [address] 07/16/2025 7:30 AM EST Hospital Encounter OR Admitting Dept - Virtual Department [address] [place] [address] David Patel, DO 4 [facility] Sports [facility], [facility] [place] [address] 07/16/2025 7:30 AM EST - 07/16/2025 9:55 AM EST Surgery OR Admitting Dept - Virtual Department [address] [place] [address] Daivd Patel, DO 4 [facility] Orthopedics Sports [facility] [place] [address] ARTHROPLASTY ANATOMIC INVERSE SHOULDER 08/01/2025 8:00 AM EST Office Visit [facility] Orthopedics & Sports Medicine [address] [place] [address] Cameron Hayward PA-C [address] [place] [address] [place] [address] [email or web address] 08/29/2025 9:00 AM EST Office Visit [facility] Orthopedics & Sports Medicine [address] [place] [address] David Patel DO [address] [place] [address] Orthopedics & Sports Medicine, [facility] [place] [address] 10/29/2025 8:00 AM EDT Office Visit [facility] Rheumatology [address] [place] [address] [place] [address] Anay Bliss MD [address] [place] [address], [address] [place] [address] [email or web address] Scheduled Procedures Name Priority Associated Diagnoses Date/Ti me ARTHROPLASTY ANATOMIC INVERSE SHOULDER Instability of prosthetic shoulder joint, sequela 07/16/2025 7:30 AM EST documented as of this encounter Visit Diagnoses Not on filedocumented in this encounter Care Teams Journeyman Level Acoustic Analyst Relationship Specialty Start Date End Date Demetrio Gonzales MD [address] [place] [address] PCP - General 06/10/17 11/26/24 Lucius Hannon MD [address] [place] [address] PCP - General Internal Medicine 11/27/24 See Wan MD [address] [place] [address] [id number] [email or web address] Historical LMR Provider 06/09/17 Anay Bliss MD 22 [facility], [facility] 203 [place] [address] Historical LMR Provider 06/09/17 Tammi Corral PA-C [address] [place] [address] Orthopedics & Sports [facility], [place] [address] Historical LMR Provider 06/09/17 08/30/21 David Patel DO [address] [place] [address] Orthopedics Sports [facility], [place] [address] Historical LMR Provider 06/09/17 Demetrio Gonzales MD [address] [place] [address] [facility] [place] [address] Historical LMR Provider 06/09/17 2 Linette Echeverria PA-C [address] [place] [address] Orthopedics Sports [facility], [place] [address] Historical LMR Provider 06/09/17 08/30/21 Cirilo Bernard MD [address] [place] [address], [address] [place] [address] Historical LMR Provider 06/09/17 08/30/21 Akil Jenkins MD [address] [place] [address] Historical LMR Provider 06/09/17 2 documented as of this encounter Additional Source Comments The information contained in this document represents components of the legal health record. It is not the complete legal health record.[facility]
--- OUTSIDE RECORDS SUMMARY | 2025-06-14 12:56 | XMS_ITS | Encounter Summary ---
Author Organization [facility] Address [address] [place] [address] Phone Care Team Providers Care Wax Pumper Name Role Phone See Wan MD Unavailable Anay Bliss MD Unavailable [phone] Tammi Corral PA-C Unavailable [phone] David Patel DO Unavailable Demetrio Gonzales MD Unavailable Linette Echeverria PA-C Unavailable [phone] Cirilo Bernard MD Unavailable [phone] Akil Jenkins MD Unavailable [phone] Demetrio Gonzales MD Primary Care Provider Lucius Hannon MD Primary Care Provid er Reason for Referral * MRI/CAT Scan - Closed Specialty Diagnoses / Procedures Referred By Edmond leo Referred To Contact Radiology Diagnoses MS (multiple sclerosis) Procedures MRI Thoracic Spine Tee Oneal MD Phone: tel: fax: [email or web address] Referral ID Status Reason Start Date Expiration Date Visits Re quested Visits Authorized [id number] Closed 08/10/2018 11/08/2018 1 1 Encounter Details Date Type Department Care Team (Late st Contact Info) Description 08/10/2018 Ancillary Orders Virtual Department [address] [place] [address] Tee Oneal MD [address] [place] [address], [address] [place] [address] [email or web address] MS (multiple sclerosis) Social History [...] Description 06/20/2025 8:00 AM EDT Office Visit [facility] Orthopedics & Sports Medicine [address] [place] [address] Cameron Hayward PA-C [address] [place] [address] [place] [address] [email or web address] 07/13/2025 8:00 AM EST Pre-Admission Testing Pre Procedure Evaluation [address] [place] [address] David Patel DO [address] [place] [address] Orthopedics & Sports Medicine, [facility] [place] [address] 07/16/2025 Procedure Pass OR Admitting Dept - Virtual Department [address] [place] [address] 07/16/2025 7:30 AM EST Hospital Encounter OR Admitting Dept - Virtual Department [address] [place] [address] David Patel DO [address] [place] [address] [facility] [place] [address] 07/16/2025 7:30 AM EST - 07/16/2025 9:55 AM EST Surgery OR Admitting Dept - Virtual Department [address] [place] [address] David Patel DO [address] [place] [address] [facility] [place] [address] ARTHROPLASTY ANATOMIC INVERSE SHOULDER 08/01/2025 8:00 AM EST Office Visit [facility] Orthopedics & Sports Medicine [address] [place] [address] Cameron Hayward PA-C [address] [place] [address] [place] [address] [email or web address] 08/29/2025 9:00 AM EST Office Visit [facility] Orthopedics & Sports Medicine [address] [place] [address] David Patel DO [address] [place] [address] Orthopedics & Sports [facility], [place] [address] 10/29/2025 8:00 AM EDT Office Visit [facility] Rheumatology [address] [place] [address] [place] [address] Anay Bliss MD 22 [facility], [address] [place] [address] [email or web address] Scheduled Procedures Name Priority Associated [...] MRI on October 19, 2009. Abdomen/pelvis CT onAugust 06, 2018 HISTORY: MS (multiple sclerosis) TECHNIQUE: [...] study, and also present on the prior 2009 study. Posteriorparaspinal soft tissues are unremarkable. IMPRESSION: No spinal cord lesions identified to suggest demyelinating disease. POS - [id number] Tee Oneal MD IMG MR XSPECIALTY Final Resu lt documented in this encounter Visit Diagnoses Diagnosis MS (multiple sclerosis) Multiple sclerosis MS (multiple sclerosis) Multiple sclerosis Instability of prosthetic shoulder joint, sequela documented in this encounter Care Teams Wax Pumper Relationship Specialty Start Date End Date Demetrio Gonzales MD [address] [place] [address] PCP - General 06/10/17 11/26/24 Lucius Hannon MD [address] [place] [address] PCP - General Internal Medicine 11/27/24 See Wan MD [address] [place] [address] [email or web address] Historical LMR Provider 06/09/17 Anay Bliss MD [address] [place] [address], [address] [place] [address] Historical LMR Provider 06/09/17 Tammi Corral PA-C [address] [place] [address] Orthopedics Sports [facility], [place] [address] Historical LMR Provider 06/09/17 08/30/21 David Patel DO 4 [facility] Orthopedics Sports [facility], [place] [address] Historical LMR Provider 06/09/17 Demetrio Gonzales MD [address] [place] [address] [place] [address] Historical LMR Provider 06/09/17 2 Linette Echeverria PA-C [address] [place] [address] Orthopedics Sports [facility], [place] [address] Historical LMR Provider 06/09/17 08/30/21 Cirilo Bernard MD [address] [place] [address], [facility] [address] [place] [address] Historical LMR Provider 06/09/17 08/30/21 Akil Jenkins MD [address] [place] [address] Historical LMR Provider 06/09/17 2 documented as of this encounter Additional Source Comments The information contained in this document represents components of the legal health record. It is not the complete legal health record.[facility]
--- OUTSIDE RECORDS SUMMARY | 2025-06-14 12:57 | XMS_ITS | Encounter Summary ---
Author Organization [facility] Address [address] [place] [address] Phone Care Team Providers Care Bin Packer Name Role Phone See Wan MD Unavailable [phone] Anay Bliss MD Unavailable [phone] Tammi Corral PA-C Unavailable [phone] David Patel DO Unavailable [phone] Demetrio Gonzales MD Unavailable Linette Echeverria PA-C Unavailable Cirilo Bernard MD Unavailable Akil Jenkins MD Unavailable [phone] Demetrio Gonzales MD Primary Care Provider Lucius Hannon MD Primary Care Provid er Encounter Details Date Type Department Care Team (Late st Contact Info) Description 08/10/2018 Procedure Pass [facility], [address] [address] Social History Tobacco Use Types Packs/Day Years [...] Description 06/20/2025 8:00 AM EDT Office Visit [facility] Orthopedics & Sports Medicine [address] [place] [address] Cameron Hayward PA-C [address] [place] [address] [place] [address] [email or web address] 07/13/2025 8:00 AM EST Pre-Admission Testing Pre Procedure Evaluation [address] [place] [address] David Patel DO [address] [place] [address] Orthopedics & Sports Medicine, [place] [address] 07/16/2025 Procedure Pass [place] Admitting Dept - Virtual Department [address] [place] [address] 07/16/2025 7:30 AM EST Hospital Encounter OR Admitting Dept - Virtual Department [address] [place] [address] David Patel DO [address] [place] [address] Orthopedics & Sports [facility], [place] [address] 07/16/2025 7:30 AM EST - 07/16/2025 9:55 AM EST Surgery OR Admitting Dept - Virtual Department [address] [place] [address] David Patel DO [address] [place] [address] Orthopedics & [facility] [place] [address] ARTHROPLASTY ANATOMIC INVERSE SHOULDER 08/01/2025 8:00 AM EST Office Visit [facility] Orthopedics & Sports Medicine [address] [place] [address] Cameron Hayward PA-C [address] [place] [address] [place] [address] [email or web address] 08/29/2025 9:00 AM EST Office Visit [facility] Orthopedics & Sports Medicine [address] [place] [address] David Patel DO [address] [place] [address] Orthopedics & Sports [facility], [place] [address] 10/29/2025 8:00 AM EDT Office Visit [facility] Rheumatology [address] [place] [address] Anay Bliss MD [address] [place] [address], [address] [place] [address] [email or web address] Scheduled Procedures Name Priority Associated Diagnoses Date/Ti me ARTHROPLASTY ANATOMIC INVERSE SHOULDER Instability of prosthetic shoulder joint, sequela 07/16/2025 7:30 AM EST documented as of this encounter Visit Diagnoses Not on filedocumented in this encounter Care Teams Bin Packer Relationship Specialty Start Date End Date Demetrio Gonzales MD [address] [place] [address] [place] [address] PCP - General 06/10/17 11/26/24 Lucius Hannon MD [address] [place] [address] PCP - General Internal Medicine 11/27/24 See Wan MD [address] [place] [address] [email or web address] Historical LMR Provider 06/09/17 Anay Bliss MD [address] [place] [address], [address] [place] [address] [email or web address] Historical LMR Provider 06/09/17 Tammi Corral PA-C [address] [place] [address] [facility] [place] [address] Historical LMR Provider 06/09/17 08/30/21 David Patel DO [address] [place] [address] [facility] [place] [address] Historical LMR Provider 06/09/17 Demetrio Gonzales MD [address] [place] [address] Historical LMR Provider 06/09/17 2 Linette Echeverria PA-C [address] [place] [address] [facility], [place] [address] Historical LMR Provider 06/09/17 08/30/21 Cirilo Bernard MD 22 [facility] [address] [place] [address] [email or web address] Historical LMR Provider 06/09/17 08/30/21 Akil Jenkins MD [address] [place] [address] Historical LMR Provider 06/09/17 2 documented as of this encounter Additional Source Comments The information contained in this document represents components of the legal health record. It is not the complete legal health record.[facility]
--- OUTSIDE RECORDS SUMMARY | 2025-06-14 12:57 | XMS_ITS | Encounter Summary ---
Author Organization [facility] Address [address] [place] [address] [place] [address] Phone Care Team Providers Care Cable Installer Repairer Helper Name Role Phone See Wan MD Unavailable [phone] Anay Bliss MD Unavailable [phone] David Patel DO Unavailable [phone] Lucius Hannon MD Primary Care Provid er Encounter Details Date Type Department Care Team (Late st Contact Info) Description 02/14/2025 Procedure Pass [facility], [facility] Scan - [address] [phone] Social History Tobacco Use Types Packs/Day Years [...] Description 06/20/2025 8:00 AM EDT Office Visit [facility] Orthopedics & Sports Medicine [address] [place] [address] Cameron Hayward PA-C [address] [place] [address] [place] [address] [email or web address] 07/13/2025 8:00 AM EST Pre-Admission Testing Pre Procedure Evaluation [address] [place] [address] David Patel DO 4 [facility] Orthopedics & Sports [facility], [place] [address] 07/16/2025 Procedure Pass [place] Admitting Dept - Virtual Department [address] [place] [address] 07/16/2025 7:30 AM EST Hospital Encounter OR Admitting Dept - Virtual Department [address] [place] [address] David Patel DO [address] [place] [address] Orthopedics [facility], [place] [address] 07/16/2025 7:30 AM EST - 07/16/2025 9:55 AM EST Surgery OR Admitting Dept - Virtual Department [address] [place] [address] David Patel DO 4 [facility] Orthopedics Sports [facility], [facility] [place] [address] ARTHROPLASTY ANATOMIC INVERSE SHOULDER 08/01/2025 8:00 AM EST Office Visit [facility] Orthopedics & Sports Medicine [address] [place] [address] Cameron Hayward PA-C [address] [place] [address] [place] [address] [email or web address] 08/29/2025 9:00 AM EST Office Visit [facility] Orthopedics & Sports Medicine [address] [place] [address] David Patel DO [address] [place] [address] Orthopedics & Sports Medicine, [place] [address] 10/29/2025 8:00 AM EDT Office Visit [facility] Rheumatology [address] [place] [address] [place] [address] Anay Bliss MD [address] [place] [address] [email or web address] Scheduled Procedures Name Priority Associated Diagnoses Date/Ti me ARTHROPLASTY ANATOMIC INVERSE SHOULDER Instability of prosthetic shoulder joint, sequela 07/16/2025 7:30 AM EST documented as of this encounter Visit Diagnoses Not on filedocumented in this encounter Care Teams Cable Installer Repairer Helper Relationship Specialty Start Date End Date Lucius Hannon MD [address] [place] [address] PCP - General Internal Medicine 11/27/24 See Wan MD [address] [place] [address] [email or web address] Historical LMR Provider 06/09/17 Anay Bliss MD [address] [place] [address], [address] [address] Historical LMR Provider 06/09/17 David Patel DO [address] [place] [address] Orthopedics & Sports Medicine, [place] [address] [email or web address] Historical LMR Provider 06/09/17 documented as of this encounter Additional Source Comments The information contained in this document represents components of the legal health record. It is not the complete legal health record.[facility]
--- OUTSIDE RECORDS SUMMARY | 2025-06-14 12:57 | XMS_ITS | Encounter Summary ---
Author Organization [facility] Address [address] [place] [address] Phone Care Team Providers Care Environmental Aid Name Role Phone See Wan MD Unavailable Anay Bliss MD Unavailable Tammi Corral PA-C Unavailable [phone] David Patel DO Unavailable [phone] Demetrio Gonzales MD Unavailable Linette Echeverria PA-C Unavailable Cirilo Bernard MD Unavailable Akil Jenkins MD Unavailable [phone] Demetrio Gonzales MD Primary Care Provider Lucius Hannon MD Primary Care Provid er Encounter Details Date Type Department Care Team (Latest Contact Info) Description 09/28/2018 Transcribe Orders [facility] [address] [place] [address] [phone] Tee Oneal MD [address] [place] [address], [address] [place] [address] [email or web address] Nonintractable headache, unspecified chronicity pattern, unspecified [...] [facility] Orthopedics & Sports Medicine [address] [place] [address] Cameron Hayward PA-C [address] [place] [address] [place] [address] [email or web address] 07/13/2025 8:00 AM EST Pre-Admission Testing Pre Procedure Evaluation [address] [place] [address] David Patel DO [address] [place] [address] [facility] [place] [address] 07/16/2025 Procedure Pass [place] Admitting Dept - Virtual Department [address] [place] [address] 07/16/2025 7:30 AM EST Hospital Encounter OR Admitting Dept - Virtual Department [address] [place] [address] David Patel DO [address] [place] [address] [facility] [place] [address] 07/16/2025 7:30 AM EST - 07/16/2025 9:55 AM EST Surgery OR Admitting Dept - Virtual Department [address] [place] [address] David Patel DO 4 [facility] Orthopedics & Sports [place] [place] [address] ARTHROPLASTY ANATOMIC INVERSE SHOULDER 08/01/2025 8:00 AM EST Office Visit [facility] Orthopedics & Sports Medicine [address] [place] [address] Cameron Hayward PA-C [address] [place] [address] [place] [address] [email or web address] 08/29/2025 9:00 AM EST Office Visit [facility] Orthopedics & Sports Medicine [address] [place] [address] David Patel DO [address] [place] [address] Orthopedics & Sports [facility], [place] [address] 10/29/2025 8:00 AM EDT Office Visit [facility] Rheumatology [address] [place] [address] Anay Bliss MD 22 [facility], [address] [place] [address] [email or web address] Scheduled Procedures Name Priority Associated Diagnoses Date/Ti me ARTHROPLASTY ANATOMIC INVERSE SHOULDER Instability of prosthetic shoulder joint, sequela 07/16/2025 7:30 AM EST documented as of this encounter Visit Diagnoses Diagnosis Nonintractable headache, unspecified chronicity pattern, unspecified headache type- Primary Instability of prosthetic shoulder joint, sequela documented in this encounter Care Teams Environmental Aid Relationship Specialty Start Date End Date Demetrio Gonzales MD [address] [place] [address] [place] [id number] PCP - General 06/10/17 11/26/24 Lucius Hannon MD [address] [place] [address] [place] [id number] PCP - General Internal Medicine 11/27/24 See Wan MD [address] [place] [address] [email or web address] Historical LMR Provider 06/09/17 Anay Bliss MD [address] [place] [address], [address] [place] [address] [email or web address] Historical LMR Provider 06/09/17 Tammi Corral PA-C [address] [place] [address] [place] [address] Historical LMR Provider 06/09/17 08/30/21 David Patel DO [address] [place] [address] [place] [address] Historical LMR Provider 06/09/17 Demetrio Gonzales MD [address] [place] [address] Dr LAMBERT [address] [place] [address] Historical LMR Provider 06/09/17 2 Linette Echeverria PA-C [address] [place] [address] Orthopedics Sports [facility], [place] [address] Historical LMR Provider 06/09/17 08/30/21 Cirilo Bernard MD [address], [address] [place] [address] [email or web address] Historical LMR Provider 06/09/17 08/30/21 Akil Jenkins MD [address] [place] [address] Historical LMR Provider 06/09/17 2 documented as of this encounter Additional Source Comments The information contained in this document represents components of the legal health record. It is not the complete legal health record.[facility]
--- OUTSIDE RECORDS SUMMARY | 2025-06-14 12:57 | XMS_ITS | Clinical Summary ---
Author Organization [facility] Address [address] [place] [address] Phone Care Team Providers Care Drier And Pulverizer Tender Name Role Phone See Wan MD Unavailable [phone] Anay Bliss MD Unavailable [phone] David Patel DO Unavailable [phone] Lucius Hannon MD Primary Care Provid er [...] over to topicals such as Arnica, Biofreeze, Croatian dream versus medicated patches such as Salonpas or IcyHot patch and Tylenol Call if worse or with questions/problems. Get labs prior to next visit-standing orders in [facility] Another option may be building up the [...] over to topicals such as Arnica, Biofreeze, Croatian dream versus medicated patches such as Salonpas or IcyHot patch and Tylenol Call if worse or with questions/problems. Get labs prior to next visit-standing orders in [facility] Another option may be building up the [...] over to topicals such as Arnica, Biofreeze, Croatian dream versus medicated patches such as Salonpas or IcyHot patch and Tylenol Call if worse or with questions/problems. 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 12/08/2017 08/24/2024 [...] Patient: Megan Edouard : 1955 Date: 10/08/2022 care home current use of non -steroidal anti-inflammatories (NSAID) [...] swelling and weakness On selective serotonin reupt mairan inhibitor (SSRI) therapy 09/01/2017 08/24/2024 Assessment & [...] AM EDT Office Visit [facility] Rheumatology [address] [place] [address] Anay Bliss MD Primary osteoarthritis involving multiple joints (Primary Dx); Personal history of calcium pyrophosphate deposition disease (CPPD); Osteopenia of neck of right femur; NSAID long-term use; Dupuytren's disease of both palm and finger without contracture; Gastroesophageal reflux disease without esophagitis; Aspirin long-term use; On statin therapy 04/25/2025 11:52 AM EDT - 04/25/2025 11:59 PM EDT Hospital Encounter [facility] [address] [place] [address] Tee Oneal MD Discharge Disposition: Home or Self Care 04/25/2025 Transcribe Orders [facility] [address] [place] [address] Tee Oneal MD Tension-type headache, not intractable, unspecified chronicity pattern (Primary Dx) 04/16/2025 1:31 PM EDT - 04/16/2025 11:59 PM EDT Hospital Encounter [facility] [address] [place] [address] David Patel DO Discharge Disposition: Home or Self Care 04/12/2025 Telephone [facility] Orthopedics & Sports Medicine [address] [place] [address] Keshia Elam RN preop labs 04/05/2025 10:00 AM EDT - 04/05/2025 11:59 PM EDT Hospital Encounter [facility] [address] [place] [address] Tee Oneal MD Discharge Disposition: Home or Self Care 04/05/2025 Transcribe Orders [facility] [address] [place] [address] Tee Oneal MD Other vascular headache (Primary Dx) 03/21/2025 11:00 AM EDT Office Visit [facility] Orthopedics & Sports Medicine [address] [place] [address] David Patel DO Instability of prosthetic shoulder joint, sequela (Primary Dx); Chronic left shoulder pain 03/14/2025 9:15 AM EDT - 03/14/2025 11:59 PM EDT Hospital Encounter [facility] [address] [place] [address] Anay Bliss MD Discharge Disposition: Home or Self Care from Last 3 Months Immunizations Immunization Administration [...] Description 06/20/2025 8:00 AM EDT Office Visit [facility] Orthopedics & Sports Medicine [address] [place] [address] Cameron Hayward PA-C [address] [place] [address] [place] [address] [email or web address] 07/13/2025 8:00 AM EST Pre-Admission Testing Pre Procedure Evaluation [address] [place] [address] David Patel DO [address] [place] [address] Orthopedics & Sports Medicine, [place] [address] 07/16/2025 Procedure Pass OR Admitting Dept - Virtual Department [address] [place] [address] 07/16/2025 7:30 AM EST Hospital Encounter OR Admitting Dept - Virtual Department [address] [place] [address] David Patel DO [address] [place] [address] Orthopedics & Sports [facility], [place] [address] 07/16/2025 7:30 AM EST - 07/16/2025 9:55 AM EST Surgery OR Admitting Dept - Virtual Department [address] [place] [address] David Patel DO [address] [place] [address] [facility] [place] [address] ARTHROPLASTY ANATOMIC INVERSE SHOULDER 08/01/2025 8:00 AM EST Office Visit [facility] Orthopedics & Sports Medicine [address] [place] [address] Cameron Hayward PA-C [address] [place] [address] [place] [address] [email or web address] 08/29/2025 9:00 AM EST Office Visit [facility] Orthopedics & Sports Medicine [address] [place] [address] David Patel DO [address] [place] [address] Orthopedics & Sports Medicine, [place] [address] 10/29/2025 8:00 AM EDT Office Visit [facility] Rheumatology [address] [place] [address] Anay Bliss MD [address] [place] [address], [address] [place] [address] [email or web address] Scheduled Procedures Name Priority Associated [...] COLONOSCOPY 1998 RSV VACCINE (1 - Risk 50-74 years 1-dose series) 2003 PNEUMOCOCCAL VACCINES (50+ years) (2 of 2 [...] this topic Medical Devices Implanted Type 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 02/03/2022 [id number] / / [id number] 2b Ascend Flex Standard Ptc Humeral Stem Shoulder 14 - [id number] Implanted:Qty: 1 on 12/27/2017 by David Patel DO at [facility] Left: Shoulder [employer] 09/07/2021 [id number] / / [id number] Low Offset Ascend Flex Stb Humeral Head Onc 22 - [id number] Implanted:Qty: 1 on 12/27/2017 by David Patel DO at [facility] Left: Shoulder [employer] 06/25/2021 [id number] / [id number] / 2b Ascend Flex Standard Ptc Humeral Stem Shoulder 14 - [id number] Implanted:Qty: 1 on 12/27/2017 by David Patel DO at [facility] Left: Shoulder [employer] 09/07/2021 [id number] / [id number] / Procedures Procedure Name Priority Date/Time Associated [...] joints NSAID long-term use Aspirin long-term use PAP TEST Routine 08/24/2024 12:00 AM EST [...] 11:57 AM EDT) Only the most recent of3 resultswithin the time period is included. SODIUM 129(L) 133 - 146 mmol/L [facility] POTASSIUM 4.4 3.3 - 5.1 mmol/L [facility] CHLORIDE 91(L) 96 - 108 mmol/L [facility] CO2 27 21 - 35 mmol/L [facility] BUN 14 6 - 19 mg/dL [facility] CREATININE 0.40(L) 0.5 - 1.5 mg/dL [facility] GLUCOSE 84 70 - 99 mg/dL [facility] ALBUMIN 4.4 3.9 - 4.8 g/dL [facility] TOTAL PROTEIN 7.0 6.5 - 8.0 g/dL [facility] CALCIUM 10.0 8.4 - 10.3 mg/dL [facility] ALKALINE PHOSPHATASE 73 39 - 117 U/L [facility] TOTAL BILIRUBIN 0.3 0.0 - 1.2 mg/dL [facility] AST 30 0 - 37 U/L [facility] ALT 28 0 - 40 U/L [facility] GLOBULIN 2.6 1 - 4.8 g/dL [facility] EGFR 106 >59 mL/min/1.7 3m2 [facility] Comment:Estimated glomerular filtration rate calculated using the CKD-EPI refit equation. ANION GAP 15 10 - 20 mmol/L [facility] Blood 04/25/2025 11:5 7 AM EDT 04/25/2025 12:05 PM EDT us Tee Oneal MD LAB BLOOD ORDERABLES Final R esult [facility] [address] [place] [address] * (ABNORMAL) CBC (04/25/2025 11:57 AM EDT) WBC 4.35 4.00 - 11.00 K/uL [facility] RBC 4.03 4.00 - 5.20 M/uL [facility] HGB 12.8 12.0 - 16.0 g/dL [facility] HCT 37.0 36.0 - 46.0 % [facility] PLT 237 150 - 450 K/uL [facility] MCV 91.8 80.0 - 100.0 fL [facility] MCH 31.8(H) 27.0 - 31.0 pg [facility] MCHC 34.6 32.0 - 36.0 g/dL [facility] RDW 12.8 11.5 - 14.5 % [facility] MPV 9.5 8.4 - 12.0 fL [facility] NRBC 0.00 0.00 /100 WBCs [facility] ABSOLUTE NRBC 0.00 0.00 K/uL [facility] Blood 04/25/2025 11:5 7 AM EDT 04/25/2025 12:05 PM EDT us Tee Oneal MD LAB BLOOD ORDERABLES Final R esult [address] [address] * ABO and Rh (04/16/2025 1:32 PM EDT) ABO/Rh A Positive [facility] Resulting Agency [facility] Blood 04/16/2025 1:32 PM EDT 04/16/2025 1:44 PM EDT us David Patel DO BLOOD BANK TEST ORDERABLES Final Result [address] [address] * Antibody Screen (04/16/2025 1:32 PM EDT) Antibody Screen Negative [facility] Resulting Agency [facility] Blood 04/16/2025 1:32 PM EDT 04/16/2025 1:43 PM EDT David Severino [facility] BLOOD BANK TEST ORDERABLES Final Result Performing Organization Address [facility]/ZIP Co de Phone Number [address] [address] * Hemoglobin A1c (04/16/2025 1:32 PM EDT) HEMOGLOBIN A1C 5.5 4.3 - 5.8 % [facility] Blood 04/16/2025 1:32 PM EDT 04/16/2025 1:44 PM EDT [facility] LAB BLOOD ORDERABLES Final Result Performing Organization Address [facility] de Phone Number [address] [address] * (ABNORMAL) Basic metabolic panel (04/16/2025 1:32 PM EDT) SODIUM 125(L) 133 - 146 mmol/L [facility] CHLORIDE 87(L) 96 - 108 mmol/L [facility] POTASSIUM 4.2 3.3 - 5.1 mmol/L [facility] CO2 26 21 - 35 mmol/L [facility] BUN 8 6 - 19 mg/dL [facility] CREATININE 0.40(L) 0.5 - 1.5 mg/dL [facility] GLUCOSE 111(H) 70 - 99 mg/dL [facility] CALCIUM 9.2 8.4 - 10.3 mg/dL [facility] EGFR 106 >59 mL/min/1.7 3m2 [facility] Comment:Estimated glomerular filtration rate calculated using the CKD-EPI refit equation. ANION GAP 16 10 - 20 mmol/L [facility] Blood 04/16/2025 1:32 PM EDT 04/16/2025 7:07 PM EDT [facility] ORDERABLES Final Result Performing Organization Address [facility]/ZIP Co de Phone Number [address] [address] * Sedimentation rate (ESR) (04/05/2025 10:02 AM EDT) Only the most recent of2 resultswithin the time period is included. ESR 3 0 - 30 mm/h [facility] Blood 04/05/2025 10:0 2 AM EDT 04/05/2025 10:08 AM EDT us Anay Bliss MD LAB BLOOD ORDERABLES Fin al Result Performing Organization Address [facility] Co de Phone Number [address] [address] * (ABNORMAL) CBC and differential (04/05/2025 10:02 AM EDT) Only the most recent of2 resultswithin the time period is included. WBC 4.33 4.00 - 11.00 K/uL [facility] RBC 4.07 4.00 - 5.20 M/uL [facility] HGB 13.0 12.0 - 16.0 g/dL [facility] HCT 37.7 36.0 - 46.0 % [facility] PLT 254 150 - 450 K/uL [facility] MCV 92.6 80.0 - 100.0 fL [facility] MCH 31.9(H) 27.0 - 31.0 pg [facility] MCHC 34.5 32.0 - 36.0 g/dL [facility] RDW 12.8 11.5 - 14.5 % [facility] MPV 9.3 8.4 - 12.0 fL [facility] NRBC 0.00 0.00 /100 WBCs [facility] ABSOLUTE NRBC 0.00 0.00 K/uL [facility] DIFF METHOD Auto [facility] NEUTS 54.6 48.0 - 76.0 % [facility] LYMPHS 33.9 18.0 - 41.0 % [facility] MONOS 8.8 4.0 - 11.0 % [facility] EOS 1.8 0.0 - 5.0 % [facility] BASOS 0.7 0.0 - 1.5 % [facility] Granulocytes, immature (%) 0.2 0.0 - 0.9 % [facility] ABSOLUTE NEUTS 2.36 1.92 - 7.60 K/uL [facility] ABSOLUTE LYMPHS 1.47 0.72 - 4.10 K/uL [facility] ABSOLUTE MONOS 0.38 0.16 - 1.10 K/uL [facility] ABSOLUTE EOS 0.08 0.00 - 0.50 K/uL [facility] ABSOLUTE BASOS 0.03 0.00 - 0.15 K/uL [facility] Granulocytes, immature 0.01 0.00 - 0.09 K/uL [facility] Blood 04/05/2025 10:0 2 AM EDT 04/05/2025 10:08 AM EDT us Anay Bliss MD LAB BLOOD ORDERABLES Fin al Result Performing Organization Address City/[facility]/ZIP Co de Phone Number [address] [address] * C-Reactive Protein (04/05/2025 10:02 AM EDT) Only the most recent of2 resultswithin the time period is included. C REACTIVE PROTEIN <3.0 0.0 - 4.0 mg/L [facility] Blood 04/05/2025 10:0 2 AM EDT 04/05/2025 10:08 AM EDT us Anay Bliss MD LAB BLOOD ORDERABLES Fin al Result [address] [address] * Pap Test (08/24/2024 12:00 AM EST) Report [address] [address] Body Designer: Elmer Valdez MD TIRE [employer]AGGER Cytology Report FINAL DIAGNOSIS A. PAP SMEAR (THIN PREP) CE: SPECIMEN ADEQUACY: Satisfactory for evaluation; transformation zone present. INTERPRETATION: NEGATIVE FOR INTRAEPITHELIAL LESION OR MALIGNANCY. Atrophy. This specimen was analyzed by the automated ThinPrep Imaging System (Two[employer].) and the selected tadeo were reviewed by a post adoption coordinator. Electronically Signed Out By: ARMEN Mcgarry(ASCP) ARMEN [...] : 1955 (Age: 68) Sex: F Institution: [facility] Location: [facility] Date of Collection: 08/24/2024 Date of Reported: 08/29/2024 16:20 Results to: Suad Hardy MD [facility] Final Diagnosis A. PAP SMEAR (THIN PREP) CE: SPECIMEN ADEQUACY: Satisfactory for evaluation; transformation zone present. INTERPRETATION: NEGATIVE FOR INTRAEPITHELIAL LESION OR MALIGNANCY. Atrophy. This specimen was analyzed by the automated ThinPrep Imaging System (Bluechilli Perla.) and the selected tadeo were reviewed by a post adoption coordinator. [facility] Conversion Type (Conversion Source) 08/24/2024 08/25/2024 9:09 AM EST us Suad Hardy MD CYTOLOGY ORDERABLES Edited Re barb - Final [facility] [address] [place], [place] [id number] * BD DXA AXIAL (SPINE) WITH HIP (06/26/2024 8:26 AM EST) Anatomical Region Laterality Modality Bone Density Bone Density 06/26/2024 8:17 AM EST Impressions 06/26/2024 8:36 AM EST Interpretation: Osteopenia. Narrative 06/26/2024 8:36 AM EST Referred By: ANAY BLISS I Indications: Postmenopausal Scanner: IntervalZero A with serial# of [id number] located at [facility] Bone Density Scan (DXA) 06/26/24 Details of [...] -2.5), or Osteoporosis (T-score <= -2.5). At [facility], T-scores are compared to peak bone density [...] By: ANAY BLISS I Indications: Postmenopausal Scanner: IntervalZero A with serial# of [id number] located at [facility] Bone Density Scan (DXA) 06/26/24 Details [...] -2.5), or Osteoporosis (T-score <= -2.5). At [facility], T-scores are compared to peak bone density [...] MD on 06/26/2024 08:36:52 IMPRESSION: Interpretation: Osteopenia. Anay Bliss MD [facility] BD BONE DENSITY DEXA Final Result * (ABNORMAL) Lipid panel (09/24/2021 8:17 AM EST) HDL 96 mg/dL [facility] Comment: Interpretation <40 mg/dL: Low HDL cholesterol (major risk factor for CHD) Greater than or equal to 60 mg/dL: High HDL cholesterol ( negative risk factor for CHD) HDL - cholesterol is affected by a number of factors, e.g. smoking, excerise, hormones, sex and age. CHOLESTEROL 228 0 - 240 mg/dL [facility] TRIGLYCERIDES 82 30 - 160 mg/dL [facility] LDL 116 50 - 129 mg/dL [facility] Comment: LDL levels in terms of risk for coronary heart disease: <100 mg/dL: Optimal 100-129 mg/dL: Near or above optimal 130-159 mg/dL: Borderline high 160-189 mg/dL: High >190 mg/dL: Very High CARDIAC RISK RATIO 2.4(L) 3.3 - 4.4 [facility] Blood 09/24/2021 8:17 AM EST 09/24/2021 8:18 AM EST Demetrio Gonzales MD LAB BLOOD ORDERABLES Fi nal Result Performing Organization Address City/[facility]/ZIP Co de Phone Number [address] [address] * (ABNORMAL) Valproic acid (09/24/2021 8:10 AM EST) VALPROIC ACID 41.7(L) 50.0 - 100.0 ug/mL [facility] Blood 09/24/2021 8:10 AM EST 09/24/2021 8:14 AM EST Demetrio Gonzales MD LAB BLOOD ORDERABLES Fi nal Result Performing Organization Address [facility] Co de Phone Number [address] [address] * BI MAMMOGRAM SCREENING WITH TOMOSYNTHESIS WITH [...] are scattered fibroglandular densities. Suad Hardy MD [employer] [facility] Final Result from Last 3 Months or Most Recently Relevant to Health Maintenance Insurance MEDICARE PART A & B [employer] MEDICARE SUPPLEMENT B MEDICARE PART A & B [facility] MEDICARE SUPPLEMENT B MEDICARE PART A & B [employer] MEDICARE SUPPLEMENT MEDICARE PART A & B [facility] MEDICARE SUPPLEMENT Member Subscriber Plan / Payer (Ef fective 2023-) Name:Megan Edouard Relation to Subscriber:Self Name:Javan Megan C Payer ID:[id number] (NAIC) Type:[facility] Address: [address] MEDICARE PART A & B [employer] MEDICARE SUPPLEMENT B MEDICARE PART A & B [employer] MEDICARE SUPPLEMENT B Advance Directives For more information, please contact: [phone] (9AM - 5PM [facility], Wednesday-Wednesday) * Full Code (Latest Code Status on File) Date Activated Date Inactivated Comments 02/05/2023 10:00 AM Question Answer Comments Code Status Confirmed With: Patient * Full Code (Presumed) Date Activated Date Inactivated Comments 12/27/2017 12:07 PM 12/28/2017 1:18 PM * Full Code (Presumed) Date Activated Date Inactivated Comments 12/27/2017 6:18 AM 12/27/2017 12:07 PM Care Teams Drier And Pulverizer Tender Relationship Specialty Start Date End Date Lucius Hannon MD [address] [place] [address] PCP - General Internal Medicine 11/27/24 See Wan MD [address] [place] [id number] [email or web address] Historical LMR Provider 06/09/17 Anay Bliss MD [address] [place] [address], [address] [place] [address] Historical LMR Provider 06/09/17 David Patel DO [address] [place] [address] Orthopedics & Sports Medicine, [facility] [place] [address] [email or web address] Historical LMR Provider 06/09/17 Additional Source Comments The information contained in this document represents components of the legal health record. It is not the complete legal health record.[facility]
== END 2025-06-14 10:38 | disposition home or self-care (01) ==
LOC: HO.MAMMO 10:37
PROVIDERS: PCP Student in an Organized Health Care Education/Training Program; Visit Provider Student in an Organized Health Care Education/Training Program
DX: N64.89 Other specified disorders of breast (principal)
CPT/HCPCS: 76642; 77061; 77065

== ENCOUNTER → 2025-06-14 11:00 | Outpatient (BNV) | payer MEDICARE, OTHER, SELFPAY | PROVIDERS: PCP Student in an Organized Health Care Education/Training Program; Visit Provider Internal Medicine | DX: R92.8 Other abnormal and inconclusive findings on diagnostic imaging of breast (principal) | CPT/HCPCS: 76642; 77065; G0279 ==

== ENCOUNTER 2025-07-09 07:35 | Outpatient (AMB) | payer MEDICARE, OTHER, SELFPAY ==
[2025-07-09 07:44] VITALS: BP 120/50; PULSE 76; TEMP 36.6; O2SAT 98; BMI 26.5
--- NOTE | 2025-07-09 07:44 | A.OFFPC_ITS ---
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 Accompanied by: Self / Same As Patient Allergies cephalexin (From KEFLEX) Allergy (Unknown, Verified 07/09/25 07:44) DIARRHEA gabapentin (From NEURONTIN) Allergy (Unknown, Verified 07/09/25 07:44) DIZZINESS- AFFECTED VISION Sulfa (Sulfonamide Antibiotics) (SULFA (SULFONAMIDE ANTIBIOTICS)) Allergy (Unknown, Verified 07/09/25 07:44) ITCH, itchiness Medication List - Last Reconciled 07/09/25 by Kam Bowie MD albuterol sulfate 90 mcg/actuation 2 inhalations inhalation [id number] PRN amlodipine 10 mg PO DAILY calcium carbonate (Calcium 500) 500 mg PO DAILY carbamazepine ER 100 mg PO TID PRN divalproex ER 1,000 mg PO DAILY duloxetine (Cymbalta) 60 mg PO DAILY fluticasone propion-salmeterol 250-50 mcg/dose 1 ea inhalation BID PRN hyoscyamine sulfate 0.125 mg PO DAILY lisinopril 5 mg PO DAILY loperamide (Imodium A-D) 2 mg PO Q6H PRN multivitamin 1 tab PO DAILY nabumetone 500 mg PO BID omeprazole 20 mg PO DAILY PRN oxybutynin chloride ER 15 mg PO DAILY 90 days prednisolone acetate 1% 1 drp ophthalmic-Right QID rosuvastatin 10 mg PO DAILY tramadol 50 mg PO BID PRN triamterene-hydrochlorothiazid 37.5-25 mg 1 tab PO DAILY Tobacco use date assessed: 07/09/25 Fall risk assessment: 1 Fall in past year Last assessed Fall Risk: 07/09/25 Dental Screening Dental Screen Date: 07/09/25 Did you have a dental visit in the last 12 months?: Yes Did you have a dental problem in the last 6 months where you did not have access to dental care?: Yes Was dental information given to patient?: Patient has dentist HPI HPI Comments History of Present Illness Details History of Present Illness The patient is a 69-year-old female who presents for evaluation of a head injury and for pre-operative clearance. She reports falling on June 13, striking the side of her head, which resulted in a bump that is now resolving. She denies any loss of consciousness or vomiting associated with the fall. The patient's past medical history is significant for trigeminal neuralgia, which is well-controlled with carbamazepine and valproate. She also has a history of arthritis and sciatic pain managed with duloxetine and tramadol, and asthma for which she uses albuterol and fluticasone inhalers as needed. The patient reports taking two Imodium tablets every morning prophylactically to prevent diarrhea, due to anxiety about experiencing it, though she denies having current diarrhea. She previously used 6-7 tablets per day. Other chronic conditions include acid reflux managed with omeprazole, an overactive bladder that is well-controlled with oxybutynin, and hypertension managed with amlodipine, lisinopril, and triamterene/HCTZ. She is also on rosuvastatin for high cholesterol. The patient is scheduled for surgery on the upcoming Wednesday. Medical History: - Head injury from fall - Asthma - Trigeminal neuralgia - Arthritis - Sciatica - Chronic diarrhea (history of) - Acid reflux - Overactive bladder - Hypertension - Hypercholesterolemia Surgical History: - Patient is scheduled for surgery on upcoming Wednesday. Medications: - Albuterol inhaler for asthma, as neede d - Alprazolam (to be discontinued) - Amlodipine 10 mg for hypertension - Carbamazepine for trigeminal neuralgia - Duloxetine (Cymbalta) for arthritis an d sciatic pain - Fluticasone inhaler for asthma - Lisinopril for hypertension - Loperamide (Imodium) 2 tablets daily - Omeprazole for acid reflux - Oxybutynin for overactive bladder - Rosuvastatin 10 mg for hypercholestero lemia - Tramadol 50 mg twice daily for pain - Triamterene/hydrochlorothiazide 37.5 m g for hypertension - Valproate (Valparx) for trigeminal elyssa ralgia Diagnostic Results: - Blood pressure today was noted to be v sharonda good. Social History - The patient lives with her . Health Maintenance - The patient has been cleared for her u [facility] surgery. - A follow-up appointment is scheduled october. Patient was informed and verbally consented to the use of an ambient scribe for clinic note documentation during this visit. Vital signs reviewed. Comprehensive history, review of systems, and physical exam completed. Medications, allergies, and problem list reviewed and updated. Counseling provided on nutrition, regular exercise, sleep hygiene, and moderation of alcohol use. Discussed age-appropriate screenings (mammogram, colonoscopy, Pap, bone density) and immunizations (flu, COVID, shingles, Tdap). Screened for depression, fall risk, and home safety; no current concerns. Discussed stress management, dental and vision care, and importance of ongoing preventive follow-up. Routine labs ordered for metabolic and lipid screening. Patient educated on healthy lifestyle and agrees with the plan. [facility] Medical History (Updated 07/09/25 @ 08:12 by Kam Bowie MD) Diarrhea Fall Breast cancer screening Osteoarthritis Pre-op evaluation Elevated liver enzymes Asthma Hematuria UTI (urinary tract infection) GERD (gastroesophageal reflux disease) Urgency incontinence H/O urinary retention Migraines History of urinary retention Urgency of micturition Urge incontinence Subclavian artery stenosis Essential hypertension Surgical History History of colonoscopy (~11/14/18) History of surgery on right wrist History of left shoulder replacement History of left knee replacement History of right shoulder replacement History of tubal ligation History of tonsillectomy Family History Father Heart disease Colon cancer Mother No problems noted. Social History Housing: House Alcohol intake: current Alcohol intake frequency: a few times a week Alcohol type: wine Patient Tobacco Use Status: Never used Tobacco e-Cigarette/Vaping Use: Never Used Advance Directives Date on File: 05/10/23 service: No Current occupational status: retired Cognitive needs: No Hearing needs: Yes (b/l hearing aids) Vision needs: Yes (reading glasses) Questionnaire PHQ-9 Over the last 2 weeks, how often have you been bothered by any of the following problems? 1. Little interest or pleasure in doing things: not at all 2. Feeling down, depressed, or hopeless: not at all 3. Trouble falling or staying asleep, or sleeping too much: not at all 4. Feeling tired or having little energy: not at all 5. Poor appetite or overeating: not at all 6. Feeling bad about yourself - or that you are a failure or have let yourself or your family down: not at all 7. Trouble concentrating on things, such as reading the newspaper or watching television: not at all 8. Moving or speaking so slowly that other people could have noticed. Or the opposite - being so fidgety or restless that you have been moving around a lot more than usual: not at all 9. Thoughts that you would be better off or of hurting yourself in some way: not at all Total score: 0 Source: Developed by Drs. Jose J Albarran, Hazel Mittal, Toni Andino and colleagues, with an educational jigna from [employer]. Thrive Questionnaire Date Thrive assessed: 07/09/25 AUDIT C Alcohol Use Questionnaire (AUDIT-C) 2. How many drinks containing alcohol do you have on a typical day when you are drinking?: 1 or 2 3. How often do you have six or more drinks on one occasion?: Less than monthly Total Score: 1 SOFYA-7 AMB Questionnaire SOFYA-7 Date SOFYA - 7 assessed: 07/09/25 Source: Developed by Drs. Jose J Albarran, Hazel Mittal, Toni Andino and colleagues, with an educational jigna from [employer]. Review of Systems Narrative Review of Systems - Constitutional: Denies loss of consciousness. - HEENT: Reports a resolving bump on the side of her head. Denies pain upon palpation. - Gastrointestinal: Denies active diarrhea. Reports taking loperamide daily out of fear of diarrhea. - Musculoskeletal: Reports arthritis and sciatic pain. All systems reviewed & are unremarkable except as reviewed in HPI and above Physical exam (Primary Care) Vital Signs: Last Vital Signs Temp 97.8 F 07/09/25 07:44 Pulse 76 07/09/25 07:44 BP 120/50 L 07/09/25 07:44 Pulse Ox 98 07/09/25 07:44 Oxygen Delivery Method Room Air 07/09/25 07:44 BMI result Body Mass Index 26.5 Tobacco/Smoking Status: Tobacco use Status Tobacco use date assessed 07/09/25 07/09/25 07:54 Patient Tobacco Use Status Never used Tobacco 07/09/25 07:54 Tobacco use type 05/07/25 11:59 e-Cigarette/Vaping Use Never Used 07/09/25 07:54 PHQ-9: PHQ-9 Score PHQ-9: Total score 0 07/09/25 08:10 Thrive Assessment: Date of Thrive Assessment Date Thrive assessed 07/09/25 07/09/25 07:54 Narrative Physical Exam General: +Alert and oriented, Well nourished, No acute distress. Eye: Pupils are equal, round and reactive to light, Intact accommodation, Extraocular movements are intact, Normal conjunctiva, Vision unchanged. HENT: Normocephalic, Atraumatic, Tympanic membranes are clear, Normal hearing, Oral mucosa is moist, No pharyngeal erythema, Ear canals patent. Respiratory: Lungs CTA bilaterally, No wheeze, Respirations are non-labored. Cardiovascular: Regular rate, Regular rhythm, S1 auscultated, S2 auscultated, No murmur, Good pulses equal in all extremities, Normal peripheral perfusion, No edema. Gastrointestinal: Soft, Non-tender, Non-distended, Normal bowel sounds, No organ omegaly. Musculoskeletal: Normal range of motion, Normal strength, No tenderness, No swelling, No deformity, Normal gait. Integumentary: Warm, Dry, [place], Intact. Neurologic: Alert, Oriented, Normal sensory, Normal motor function, No focal defects, Cranial Nerves II-XII are grossly intact, Normal deep tendon reflexes. Psychiatric: Cooperative, Appropriate mood & affect, Normal judgment. Coding Level of Care Code Est Pt Level 4 (16031) Complex EM visit Add On G2211 Diagnoses Fall, initial encounter W19.XXXA Encounter type: initial encounter Diarrhea, unspecified type R19.7 Diarrhea type: unspecified type Essential hypertension I10 Urgency incontinence N39.41 Trigeminal neuralgia of right side of face G50.0 Pre-op evaluation Z01.818 Assessment & Plan Assessment & Plan (1) Fall: Comment: - The patient sustained a minor head injury from a fall on June 13. - Examination reveals a mild, mobile, non-tender bump on her head. - There is low suspicion for an acute intracranial process. - An X-ray of the face will be obtained for reassurance, and it is not expected to interfere with her upcoming surgery. - The patient was counseled on the possibility of post-concussion headaches. Code(s): W19.XXXA - Unspecified fall, initial encounter Category: Medical Qualifiers: Encounter type: initial encounter Qualified Code(s): W19.XXXA - Unspecified fall, initial encounter (2) Diarrhea: Comment: - The patient's prophylactic use of loperamide, combined with her tramadol use, raises concern for constipation with overflow diarrhea. - Her symptoms of overactive bladder may also be exacerbated by fecal impaction. - An abdominal X-ray will be ordered to evaluate for stool burden. - She was advised to discontinue prophylactic loperamide and only use it as needed after a diarrheal episode. Code(s): R19.7 - Diarrhea, unspecified Category: Medical Qualifiers: Diarrhea type: unspecified type Qualified Code(s): R19.7 - Diarrhea, unspecified (3) Essential hypertension: Comment: - Blood pressure is well-controlled with current medication regimen. - Instructed to hold lisinopril the morning of the procedure to manage intraoperative blood pressure levels. Code(s): I10 - Essential (primary) hypertension Category: Medical (4) Urgency incontinence: Comment: - Managed with oxybutynin. - Could be related to constipation therefore will await furthe results. Code(s): N39.41 - Urge incontinence Category: Medical (5) Trigeminal neuralgia of right side of face: Comment: - Symptoms well managed with carbamazepine & divalproex Code(s): G50.0 - Trigeminal neuralgia Category: Medical (6) Pre-op evaluation: Comment: - Stable - Cleared for surgery next week - Reiterated need to hold medications prior to surgery Code(s): Z01.818 - Encounter for other preprocedural examination Category: Medical Plan: Health Maintenance: - The patient has been cleared for her upcoming surgery. - A follow-up appointment is scheduled for October. Patient was informed and verbally consented to the use of an ambient scribe for clinic note documentation during this visit. Vital signs reviewed. Comprehensive history, review of systems, and physical exam completed. Medications, allergies, and problem list reviewed and updated. Counseling provided on nutrition, regular exercise, sleep hygiene, and moderation of alcohol use. Discussed age-appropriate screenings (mammogram, colonoscopy, Pap, bone density) and immunizations (flu, COVID, shingles, Tdap). Screened for depression, fall risk, and home safety; no current concerns. Discussed stress management, dental and vision care, and importance of ongoing preventive follow-up. Routine labs ordered for metabolic and lipid screening. Patient educated on healthy lifestyle and agrees with the plan. Plan I have evaluated the patient for a fall that occurred on June 13, resulting in a bump on her head. I reassured her that the injury appears minor and is unlikely to interfere with her upcoming surgery, but I ordered a facial X-ray for her peace of mind. I also advised her of the potential for post-concussion headaches. We discussed her medication list in detail. I strongly recommended she stop taking alprazolam due to fall risks and potential for worsening post-concussive symptoms. I explained my concern that her prophylactic use of loperamide, in conjunction with tramadol, could be causing severe constipation presenting as overflow diarrhea and potentially contributing to her bladder symptoms. To investigate this, I have ordered an abdominal X-ray and instructed her to take loperamide only after a diarrheal episode occurs, not before. I confirmed she understands which medications to hold prior to her surgery. The patient is cleared for surgery, and I wished her the best of luck. A follow-up is scheduled for October. Orders: Orders XR facial bones min 3V Today W19.XXXA - Unspecified fall, initial encounter XR abdomen min 2V Today R19.7 - Diarrhea, unspecified Patient Instructions: - Please go across to the hospital to get an X-ray of your face and an X-ray of your belly. - Stop taking Alprazolam (Xanax) completely. - Stop taking Imodium every morning to prevent diarrhea. You should only take it if you actually have an episode of diarrhea. - Do not take your blood pressure medicines (Amlodipine, Lisinopril, and the combination pill with hydrochlorothiazide) on the morning of your surgery. - The bump on your head is not expected to cause any issues for your surgery. - You may experience some headaches for a while after your fall; this can be normal. - Best of luck with your surgery on Wednesday. - Your next follow-up appointment is in October.
--- OUTSIDE RECORDS SUMMARY | 2025-07-09 07:53 | XMS_ITS | Patient Health Record ---
Author Organization [facility] Address [address] [place] [id number] Care Team Providers Care Supervisor Curing Room Name Role Phone Christian (RETIRED) Demetrio RENDON Primary Care Provide Jose J Betancourt [phone] Allergies Allergen (clinical drug ingredient) Drug/Non Drug Allergy documented on EMR Reaction Allergy Type Onset Date Status Keflex Unknown Drug Allergy Active gabapentin Neurontin Unknown Drug Allergy Active Sulfa Unknown Drug Allergy Active Reason For Referral No Information Medications Medication SIG (Take, Route, Frequency, Duration) Notes Start Date End Date Status Hyoscyamine Sulfate 0.125 MG Tablet 1-2 Orally Q 4-6 hours prn abdominal cramps/bloating; Duration: 90 days 12/22/2021 Not-Taking/PRN Nabumetone 500 MG Tablet 1 tablet Orally Twice a day Active Hyoscyamine Sulfate 0.125 MG Tablet 1-2 tablets Orally Q4-6 hours prn abdominal cramps/bloating; Duration: 90 days 07/03/2019 Not-Taking/PRN Cholestyramine 4 GM/DOSE Powder 1 scoop mixed in a glass of water or orange juice Orally QD -BID for diarrhea; Duration: 30 day(s) 05/09/2020 Not-Taking/PRN Hyoscyamine Sulfate ER 0.375 MG Tablet Extended Release 12 Hour 1 tablet Orally Twice a day; Duration: 30 day(s) 05/11/2023 Active Imodium A-D 2 MG Tablet 1-2 tablets Oral ly Four times a day prn diarrhea; Duration: 30 days 05/01/2020 Active Hyoscyamine Sulfate ER 0.375 MG Tablet Extended Release 12 Hour 1 tablet Orally Twice a day every morning before breakfast and every late afternoon before dinner 09/08/2022 Active traMADol HCl 50 MG Tablet 1 tablet as needed Orally twice a day Active Hyoscyamine Sulfate ER 0.375 MG Tablet Extended Release 12 Hour 1 tablet Orally every 12 hrs; Duration: 90 days 07/13/2023 Active Multivitamin Women A ctive amLODIPine Besylate 2.5 MG Tablet 1 tablet Orally Once a day Active Cymbalta 60 MG Capsule Delayed Release Particles 1 capsule Orally Once a day Active Aspirin 81 MG Tablet Chewable 1 tablet Orally twice a week Active Simvastatin 40 MG Tablet 1 tablet in the evening Orally Once a day Active Depakote 500 MG Tablet Delayed Release 1 tablet Orally Once a day Active Omeprazole 20 MG Capsule Delayed Release 1 capsule Orally Once a day/as needed Just prn Active Triamterene-HCTZ 37.5-25 MG Tablet 1 tablet in the morning Orally Once a day Active Immunizations Vaccine Route Administration Date Status Comme nts Influenza Unknown 05/23/2018 Administered Influenza Unknown 04/23/2022 Administered Social History Social History Additional Details Category Social Info Options Details Miscellaneous: Marital status: 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 wine Nonsmoker; no sig alcohol ex cept for occ. wine Nonsmoker; no sig alcohol ex cept for occ. wine Nonsmoker; no sig alcohol ex cept for occ. wine Nonsmoker; no sig alcohol ex cept for occ. wine Problems Problem Type SNOMED Code ICD Code Onset Dates Problem Status W/U Status Risk Notes Problem Esophageal reflux (388513448) Esophageal reflux (K21.9) Active confirmed Problem Screening for malignant neoplasm of colon (357890204) Encounter for screening for malignant neoplasm of colon (Z12.11) Active confirmed Problem Irritable bowel syndrome with diarrhea (523830042) Irritable bowel syndrome with diarrhea (K58.0) Active confirmed Problem Dysphagia (43760703) Dysphagia (R13.10) Active confirmed Problem Benign neoplasm of stomach (26866953) Gastric polyps (K31.7) Active confirmed Problem Gastritis (2172501) Gastritis (K29.70) Active c onfirmed Problem Incontinence of feces (54990254) Incontinence of feces, unspecified fecal incontinence type (R15.9) Active confirmed Problem Gastroesophageal reflux disease (774663330) Gastroesophageal reflux disease, unspecified whether esophagitis present (K21.9) Active confirmed Problem Esophageal dysphagia (93292665) Esophageal dysphagia (R13.19) Active confirmed Encounters Encounter Location Date Provider Diagnosis [facility] [address] [place] [address] 07/24/2024 Jose J Santamaria Plan Of Treatment [...] Start Date Coverage End Date MEDICARE OF [place] [address] [place] [address] [id number] LAURO CASH Self - patient is the insured [facility] [address] [address] [place] [address] [id number] CASH LAURO Self - patient is the insured Medical [...] disease profile in January of 2015 Denies VA,DM,CVA,renal disease Urinary incontinence Negative colonoscopy in 2018, although t he prep was somewhat limited Surgical History Surgery Date(Month/Year) Both shoulder replacements 2016/2018 Both elbows Umbillical hernia Tubal ligation Left knee replacement 2017 Bilateral eyes
== END 2025-07-09 08:04 | disposition home or self-care (01) ==
LOC: HO.HMCHD 07:35
PROVIDERS: PCP Student in an Organized Health Care Education/Training Program; Visit Provider Student in an Organized Health Care Education/Training Program
DX: W19.XXXA Unspecified fall, initial encounter (principal); R19.7 Diarrhea, unspecified; I10 Essential (primary) hypertension; N39.41 Urge incontinence; G50.0 Trigeminal neuralgia; Z01.818 Encounter for other preprocedural examination

== ENCOUNTER 2025-07-09 07:35 | Outpatient (REF) | payer MEDICARE, OTHER, SELFPAY ==
--- NOTE | ~2025-07-09 | XR_ITS ---
EXAMINATION: XR FACIAL BONES CLINICAL INFORMATION: W19.XXXA - Unspecified fall, initial encounter COMPARISON: None available. TECHNIQUE: 4 views of the facial bones were obtained. FINDINGS: There are no definite fracture is present. There is no bone lesion. The orbits and nasal bones appear intact. The paranasal sinuses are grossly well pneumatized without air-fluid levels or gross opacification. There is abundant dental amalgam present. Mild hyperostosis frontalis. Degenerative changes present in the imaged upper cervical spine. Sella is normal in size. Mastoids are grossly pneumatized. No discrete soft tissue abnormality. XR/XR facial bones min 3V IMPRESSION: Unremarkable facial bone examination. Electronically signed by: Shmuel Hodge MD 07/09/2025 09:35 AM DANIEL RUSSO
--- NOTE | ~2025-07-09 | XR_ITS ---
EXAMINATION: XR ABDOMEN COMPLETE CLINICAL INDICATION: R19.7 - Diarrhea, unspecified COMPARISON: None available. TECHNIQUE: 2 views of the abdomen, supine and upright. FINDINGS: Bowel gas pattern is normal/nonspecific. There is no focally dilated loop, or differential air-fluid levels on the upright radiograph. Moderate fecal material seen throughout the colon and rectum in keeping with moderate constipation. There is no organomegaly. There is no large abdominal mass. Lung bases appear clear. There is no suspicious osseous abnormality. There are moderate to advanced degenerative changes throughout the spine with a mild right convex thoracolumbar scoliosis. Moderate to severe degenerative arthritis in the left greater than right hip joints with chondrocalcinosis present. XR/XR abdomen min 2V IMPRESSION: 1. There is moderate constipation. There is no bowel obstruction. 2. Additional chronic findings as above. Electronically signed by: Shmuel Hodge MD 07/09/2025 09:32 AM DANIEL
== END 2025-07-09 07:36 | disposition home or self-care (01) ==
LOC: HO.XRAY 07:35
PROVIDERS: PCP Student in an Organized Health Care Education/Training Program; Visit Provider Student in an Organized Health Care Education/Training Program
DX: Z01.818 Encounter for other preprocedural examination (principal); R19.7 Diarrhea, unspecified; N39.41 Urge incontinence; I10 Essential (primary) hypertension; G50.0 Trigeminal neuralgia; W19.XXXA Unspecified fall, initial encounter
CPT/HCPCS: 70150; 74019; 99212

== ENCOUNTER → 2025-07-09 08:12 | Outpatient (BNV) | payer MEDICARE, OTHER, SELFPAY | PROVIDERS: PCP Student in an Organized Health Care Education/Training Program; Visit Provider Radiology Diagnostic Radiology | DX: Z04.3 Encounter for examination and observation following other accident (principal); K59.00 Constipation, unspecified | CPT/HCPCS: 70150; 74019 ==